=== PATIENT | female | born 1930 | race Caucasian/White ===

== ENCOUNTER 2017-11-14 15:56 | Emergency (ER) | payer OTHER ==
--- OUTSIDE RECORDS SUMMARY | 2017-11-14 15:58 | XMS REPORT | Clinical Summary ---
:1930 Author Organization [facility] Address [address] [place] [address] Phone Care Team Providers Name Role Phone Unavailable Primary Care Provider Unavailable Allergies Active Allergy Reactions Severity Noted Date Comments Codeine Nausea And Vomiting 09/23/2016 Hydrocodone-Acetaminophen 09/23/2016 Current Medications Prescription Sig. Disp. Refills Start Date End Date Status tamsulosin (FLOMAX) Take 0.4 mg by Active 0.4 mg Cp24 24 hr mouth daily. capsule carvedilol (COREG) Take 3.125 mg Active 3.125 MG tablet by mouth 2 (two) times daily with breakfast and dinner. furosemide (LASIX) Take 80 mg by Active 80 MG tablet mouth daily. levothyroxine Take 50 mcg by Active (SYNTHROID, mouth Every LEVOTHROID) 50 MCG morning on an tablet empty stomach. traMADol (ULTRAM) Take 50 mg by Active 50 mg tablet mouth 2 (two) times daily as needed for Pain. montelukast Take 10 mg by Active (SINGULAIR) 10 mg mouth nightly. tablet nilotinib (TASIGNA) Take 300 mg by Active 150 mg capsule mouth 2 (two) times daily. nortriptyline Take 75 mg by Active (PAMELOR) 75 MG mouth nightly. capsule digoxin (LANOXIN) Take 125 mcg by Active 0.125 MG tablet mouth every other day. apixaban (ELIQUIS) Take 2.5 mg by Active 2.5 mg Tab tablet mouth 2 (two) times daily. metoprolol Take 25 mg by Active (LOPRESSOR) 25 MG mouth 2 (two) tablet times daily. cycloSPORINE Place 1 drop Active (RESTASIS) 0.05 % into both eyes ophthalmic emulsion 2 (two) times daily. gabapentin Take 400 mg by Active (NEURONTIN) 400 MG mouth 4 (four) capsule times daily. gabapentin Take 800 mg by Discontinued (NEURONTIN) 300 MG mouth 4 (four) 7 capsule times daily . aspirin 325 MG EC Take 1 tablet 30 tablet 0 10/03/2016 tablet (325 mg total) 8 by mouth daily. Active Problems Problem Noted Date Ventricular tachycardia (HCC) 01/06/2017 VT (ventricular tachycardia) (HCC) 01/06/2017 Stenosis of right carotid artery 10/01/2016 Carotid stenosis, asymptomatic, right 09/25/2016 Essential hypertension 09/25/2016 Hypothyroidism 09/25/2016 Encounters Date Type Specialty Care Team Description 02/10/2017 Hospital Encounter Ana Shrestha MD 02/10/2017 Orders Only Ana Shrestha Status post MD Alberto biventricular pacemaker 02/10/2017 Outside Orders Ana Shrestha Status post MD Alberto biventricular pacemaker (Primary Dx) 01/07/2017 Orders Only General Internal Medicine 01/07/2017 Anesthesia Event Yoan Francois AA 01/07/2017 Procedure Pass 01/07/2017 Surgery Ana Shrestha AICD GENERATOR & MD Alberto LEADS - INSERTION W/ MAC ANESTHESIA (SING/DUAL/MULT) 01/06/2017 - Hospital Encounter Cardiology Fuad Gonzales Essential 01/08/2017 MD Jf hypertension after 11/13/2016 Family History Medical History Relation Name Comments Cancer Father Cancer Mother Relation Name Status Comments Father Mother Social History Tobacco Use Types Packs/Day Years Used Date Former Smoker Quit: 06/27/1992 Alcohol Use Drinks/Week oz/Week Comments No Sex Assigned at Date Recorded Not on file Last Filed Vital Signs Vital Sign Reading Time Taken Blood Pressure 102/73 01/08/2017 7:51 AM CDT Pulse 86 01/08/2017 7:51 AM CDT Temperature 36.8 C (98.2 F) 01/08/2017 7:51 AM CDT Respiratory Rate 18 01/08/2017 7:51 AM CDT Oxygen Saturation 94% 01/08/2017 7:51 AM CDT Inhaled Oxygen Concentration - - Weight 67.3 kg (148 lb 4.8 oz) 01/08/2017 7:51 AM CDT Height 167.6 cm (5' 6") 01/06/2017 4:13 PM CDT Body Mass Index 23.94 01/08/2017 7:51 AM CDT Plan of Treatment Health Maintenance Due Date Last Done Comments INFLUENZA VACCINE 04/27/2018 Implants Implanted Type Area Baggage Porter Device Expiration Model / Identifier Date Serial / Lot Lead Attain Performa 78cm [id number] - [id number] Cardiovascular N/A: MEDTRONIC :CARD 10/03/2018 [id number] / Implanted: Qty: 1 on 01/07/2017 by Ana Shrestha MD Chest RHY: DISEASE [id number] / MGT Ld Endocardial Df4 Act 55 [id number] - [id number] Defibrillators N/A: MEDTRONIC:CARD 10/10/2018 [id number] / Implanted: Qty: 1 on 01/07/2017 by Ana Shrestha MD Chest RHY: DISEASE [id number] / MGT Dev Amplia Quad Painter Ordnance-D Surescn [id number] - [id number] Defibrillators N/A: MEDTRONIC:CARD 04/24/2018 [id number] / Implanted: Qty: 1 on 01/07/2017 by Ana Shrestha MD Chest RHY:PACING SYS [id number] / Grft Hemshld Dbl Silvio 0.3x3.0in [id number] - [id number] Graft/Patch Right: GETINGE 04/26/2021 [id number] / Implanted: Qty: 1 on 10/01/2016 by Miguelangel Stack MD Neck IND:MAQUET:CV [id number] / [id number] Lead Pacemkr Capsur Novus 45x1 [id number] - [id number] Pacemaker Lead N/A: MEDTRONIC:CARD 09/23/2018 [id number] / Implanted: Qty: 1 on 01/07/2017 by Ana Shrestha MD Chest RHY: DISEASE [id number] / MGT Procedures Procedure Name Priority Date/Time Associated Diagnosis Comments AICD GENERATOR & 01/07/2017 10:19 AM Ventricular tachycardia LEADS - INSERTION W/ CDT (HCC) MAC ANESTHESIA (SING/DUAL/MULT) Case Notes 1439 after 11/13/2016 Results ARRYTHMIA IMPLANT REPORT - SCAN (02/27/2017 11:21 AM)Only the most recent of3 resultswithin the time period is included.XR chest 2 views (02/10/2017 2:57 PM) Specimen Performing Laboratory GE RIS Narrative FINAL REPORT INDICATION: status post implant COMPARISON: January 07, 2017 TECHNIQUE: Chest radiograph, two views, PA and lateral. FINDINGS: There is a left subclavian triple lead ICD with one lead terminating in the right atrium, another lead terminating in the right ventricle, and a third lead terminating in the coronary sinus. Mild enlargement of the cardiac silhouette and a moderate elevation left hemidiaphragm are again noted. There is no pneumothorax. No pulmonary edema or pleural effusion is demonstrated. Osseous structures are unremarkable. IMPRESSION: As above. Signed: Da Curiel MD Report Verified Date/Time:02/10/2017 15:41:30 Reading Location: [facility] Reading Room Procedure Note Interface, External Ris In - 02/10/2017 3:43 PM CDT FINAL REPORT INDICATION: status post implant COMPARISON: January 07, 2017 TECHNIQUE: Chest radiograph, two views, PA and lateral. FINDINGS: There is a left subclavian triple lead ICD with one lead terminating in the right atrium, another lead terminating in the right ventricle, and a third lead terminating in the coronary sinus. Mild enlargement of the cardiac silhouette and a moderate elevation left hemidiaphragm are again noted. There is no pneumothorax. No pulmonary edema or pleural effusion is demonstrated. Osseous structures are unremarkable. IMPRESSION: As above. Signed: Da Curiel MD Report Verified Date/Time: 02/10/2017 15:41:30 Reading Location: [facility] Reading Room IAC CATH REPORT - SCAN (01/09/2017 2:11 PM)RHYTHM STRIP - SCAN (01/09/2017 2:11 PM)CBC (Hemogram only) (01/08/2017 4:41 AM)Only the most recent of2 resultswithin the time period is included. Component Value Ref Range WBC 11.1 (H) 4.0 - 10.0 K/L RBC 3.62 (L) 4.00 - 5.00 M/L Hemoglobin 12.2 12.0 - 15.0 GM/DL Hematocrit 36.3 36.0 - 45.0 % MCV 101.0 (H) 82.0 - 99.0 fL MCH 33.9 (H) 27.0 - 33.0 pg MCHC 33.7 32.0 - 36.0 GM/DL RDW 15.2 (H) 10.3 - 14.2 % Platelets 201 150 - 430 K/CU MM MPV 7.6 6.5 - 10.5 fL nRBC 0 0 - 0 /100 WBC Specimen Performing Laboratory Blood - Arm, [address] [address] Narrative 0.00 Magnesium (01/08/2017 4:41 AM)Only the most recent of3 resultswithin the time period is included. Component Value Ref Range Magnesium 2.0Comment: Specimen slightly hemolyzed 1.6 - 2.6 mg/dL Specimen Performing Laboratory Blood - Arm, [address] [address] Basic Metabolic Panel (01/08/2017 4:41 AM)Only the most recent of3 resultswithin the time period is included. Component Value Ref Range Sodium 138 136 - 145 meq/L Potassium 4.6Comment: Specimen slightly hemolyzed 3.5 - 5.1 meq/L Chloride 108 (H) 98 - 107 meq/L CO2 23 22 - 29 meq/L BUN 14 7 - 21 mg/dL Creatinine 0.87Comment: Specimen slightly hemolyzed 0.57 - 1.25 mg/dL Glucose 109 (H) 70 - 105 mg/dL Calcium 8.9 8.4 - 10.2 mg/dL EGFR 62Comment: ESTIMATED GFR IS NOT ACCURATE mL/min/1.73 sq m CREATININE CLEARANCE IN PREDICTING GLOMERULAR FILTRATION RATE. ESTIMATED GFR IS NOT APPLICABLE FOR DIALYSIS PATIENTS. Specimen Performing Laboratory Blood - Arm, [address] [address] ECG 12 lead (01/07/2017 9:17 PM)Only the most recent of2 resultswithin the time period is included. Specimen Performing Laboratory GE MUSE Narrative Ventricular Rate 68 BPM Atrial Rate 68 BPM P-R Interval 150 ms QRS Duration 106 ms Q-T Interval 372 ms QTC Calculation(Bazett) 395 ms P [place] 47 degrees R [place] -54 degrees T [place] -24 degrees Demand pacemaker;interpretation is based on intrinsic rhythm Sinus rhythm with intermittent electronic atrial pacing followed by a wide QRS complex (electronic ventricular pacing?) Incomplete right bundle branch block Left anterior fascicular block Possible Lateral infarct , age undetermined ST depression in V1-V4: secondaryto IRBBB? acute inferolateral STEMI equivalent? Abnormal ECG When compared with ECG of 07-JAN-2017 16:37, ST depression replaced mild ST elevation in lead V3-V4 Confirmed by MD EDWARDS YOCHAI ([id number]) on 01/08/2017 7:07:04 AM Procedure Note Interface, External Ris In - 01/08/2017 7:07 AM CDT Ventricular Rate 68 BPM Atrial Rate 68 BPM P-R Interval 150 ms QRS Duration 106 ms Q-T Interval 372 ms QTC Calculation(Bazett) 395 ms P [place] 47 degrees R [place] -54 degrees T [place] -24 degrees Demand pacemaker; interpretation is based on intrinsic rhythm Sinus rhythm with intermittent electronic atrial pacing followed by a wide QRS complex (electronic ventricular pacing?) Incomplete right bundle branch block Left anterior fascicular block Possible Lateral infarct , age undetermined ST depression in V1-V4: secondary to IRBBB? acute inferolateral STEMI equivalent? Abnormal ECG When compared with ECG of 07-JAN-2017 16:37, ST depression replaced mild ST elevation in lead V3-V4 Confirmed by MD EDWARDS YOCHAI ([id number]) on 01/08/2017 7:07:04 AM XR chest 1 view portable / bedside (01/07/2017 1:38 PM) Specimen Performing Laboratory GE RIS Narrative FINAL REPORT CLINICAL HISTORY: s/p BiV ICD TECHNIQUE: 1 view of the chest. COMPARISON: None IMPRESSION: There is left lower lung consolidation and a small left pleural effusion. The right lung is relatively well-aerated. The cardiomediastinal silhouette is magnified by technique with a pacemaker. Signed: Kobe Augustine MD Report Verified Date/Time:01/07/2017 13:51:33 Reading Location: [facility] B1 [id number] Consult Reading Room Procedure Note Interface, External Ris In - 01/07/2017 2:14 PM CDT FINAL REPORT CLINICAL HISTORY: s/p BiV ICD TECHNIQUE: 1 view of the chest. COMPARISON: None IMPRESSION: There is left lower lung consolidation and a small left pleural effusion. The right lung is relatively well-aerated. The cardiomediastinal silhouette is magnified by technique with a pacemaker. Signed: Kobe Augustine MD Report Verified Date/Time: 01/07/2017 13:51:33 Reading Location: [address] Consult Reading Room 2D Echo W/Doppler(CW/PW/Color) (01/07/2017 9:05 AM) Component Value Ref Range Ejection Fraction LV EF BP 32.7 % Specimen Performing Laboratory [facility] Echocardiography Laboratory [address] [place] [address] Voice:[phone] Transthoracic Echocardiogram Pat.Name:REBECCA LAURENT [facility].ID:[id number] .Date: 01/07/2017 Refer.MD:ANA SHRESTHA Exam Time: 9:05:00 AMStudy Type:Echo Complete Height:66inWeight:145lb BSA: 1.75 m2 DOBAge:1930,87Y Sex: FEMALEBP:1454/65 HR:73 bpmSonogrphr: KALEB Vaz Pat. Stat.:Inpatient Room:143 Reason for Study:Sustained or Nonsustained Atrial Fib, SVT or VT History / Clinical:Atrial fibrillation/flutter, Cancer, Hypertension, Anemia, Congestive Heart Failure Procedures:2D ECHO W/ DOPPLER (CW/PW/COLOR), Portable, Definity contrast done SUMMARY: Technically difficult study. Poor images from PLAX views. ( Loop recorder in place and patient tender in this region) 1. Left ventricular chamber size (by vol index) is severely enlarged (female - LVED vol > 80 ml/m2). Mild to moderate concentric LV hypertrophy. All of the LV segments are moderately hypokinetic. Global LV systolic function is whteiysh-xc-cnlmdjxi reduced. LVEF by quantitative assessment is moderately reduced (30-34%).. Bi-Plane Rutledge' EF 33%. Grade 2 diastolic dysfunction (moderately increased LA pressure). 2. RV chamber size is normal. Global RV systolic function is normal. 3. LA size is mildly enlarged (35-41 ml/m2). RA cavity size is normal. 4. Xnff-bs-ilemndte AoV cusp thickening. Mild to moderate aortic stenosis. Mean gradient of 20 mm Hg, ZACKARY of 1.1 cm, DVI of 0.3. LVOT diameter of 2.2 cm used ( from prior study in 09/2016). Mild aortic regurgitation. 5. A trace of tricuspid regurgitation. Peak systolic PA pressure may be underestimated; partial TR signal. Estimated Peak systolic pressure is at least 30-35 mm Hg. The estimated RA pressure by IVC dynamics 0-5 mm Hg. Compared to the prior study dated 10/02/2016, LVOT, AV Doppler was obtained on this study. Using LVOT diameter from prior study, aortic stenosis is estimated to be mild to moderate in severity. FINDINGS: LV: All of the LV segments are moderately hypokinetic. Global LV systolicfunction is woxaanir-tt-rkcgultq reduced. Left ventricularchamber size (by vol index) is severely enlarged(female - LVED vol > 80 ml/m2). Mild to moderate concentricLV hypertrophy. LVEF by quantitative assessment ismoderately reduced (30-34%).. Bi-Plane Rutledge' EF 33 %. Grade2 diastolic dysfunction (moderately increased LA pressure).LV endocardium is adequately visualized with IV contrast. LA: LA size is mildly enlarged (35-41 ml/m2). LA is adequately visualized. RV: RV is well visualized. RV chamber size is normal. Global RV systolicfunction is normal. RA: The RA is well visualized. RA cavity size is normal. AV: Ygbk-ue-hbnocbri AoV cusp thickening. Mild to moderate aorticstenosis. Mean gradient of 20 mm Hg, ZACKARY of 1.1 cm^2,DVI of 0.3. LVOT diameter of 2.2 cm used ( from prior studyin 09/2016). Mild aortic regurgitation. MV: Mild to moderate mitral regurgitation. Mild mitral annular calcification.MV leaflet mobility is normal. TV: A trace of tricuspid regurgitation. Mild TV leaflet thickening.Estimated Peak systolic pressure is at least 30-35mmHg. Peak systolic PA pressure may be underestimated;partial TR signal. PV: PV is not well visualized. Pericard: No pericardial effusion is present. Systemic Veins: The inferior vena cava is adequately visualized. The inferiorvena cava size is normal. The estimated RA pressureby IVC dynamics 0-5 mmHg. Quality:Technically difficult study. Poor images from PLAX views. ( Looprecorder in place and patient tender in this region ) MEASUREMENTS: 2D LA Sng Plane LA Vol67.7 mlIndex 38.7 ml/m2 LA Area 21 cm2(8.8-23.4) Parasternal Long [place] IVSd1.35 cmLVPWd 1.46 cm LVIDd 4.86 cm (4.3-5.1) LV Wmn 1.4 cm LV EF Biplane LVEDV BP 184 mlIndex 105 ml/m2 HR57 bpm LVESV BP 124 mlLV CO BP 3.43 l/min LV SV BP60.2 mlLV CI BP 1.96 l/min/m2 DOPPLER Aortic Valve AV DI0.305 AV Area-Cont. Eq. LVOT Area3.8 cm2 AV SV 83.1 ml Area (VTI)1.16 cm2(3-5)* AV VTI71.6 cm LVOT VTI21.9 cm AV Forward Flow AV pkVel 297 cm/s (100-170)* AV ET351 msec AV mnVel 204 cm/Cyndy AC/ET 0.343 AV pkPG 35.2 mmHgAVpkAcRt 4543 cm/s2 AV mnPG 19.8 mmHg AV AC120 msec (83-118)* AV VTI71.6 cm Left Ventricle MV pkE 119 cm/s (60-130) AnnSeptEm 4.33 cm/s AnnLatEm5.49 cm/sAnnSeptE/Em 27.4 AnnLatE/Em21.6 Avg E/Em24.2 MV E/A Ratio MV pkE 119 cm/s (60-130) MV E/A 0.872 MV pkA 136 cm/s Mitral Valve MV E/A 0.872 MV E' Mn4.91 cm/s TV PA Sys Press TI silvio 261 cm/Riccardo Press 5 mmHg RV-RA PG27.3 mmHgSysP TV 32.3 mmHg Right Ventricle RweJhzRa94.3 cm/s Atria LA P31.9 mmHg Signed 01/07/2017 05:49 PM Naomy Wilkerson M.D. Procedure Note Interface, External Ris In - 01/07/2017 5:50 PM CDT Echocardiography Laboratory [address] [place] [address] Voice: [phone] Transthoracic Echocardiogram Pat.Name: REBECCA LAURENT Pat.ID: [id number] .Date: 01/07/2017 Refer.MD: ANA SHRESTHA Exam Time: 9:05:00 AM Study Type:Echo Complete Height: 66in Weight: 145lb BSA: 1.75 m2 Age: 6 1930,87Y Sex: FEMALE BP: 1454/65 HR: 73 bpm Sonogrphr: KALEB Vaz Pat. Stat.:Inpatient Room: [place] [facility] Reason for Study:Sustained or Nonsustained Atrial Fib, SVT or VT History / Clinical:Atrial fibrillation/flutter, Cancer, Hypertension, Anemia, Congestive Heart Failure Procedures:2D ECHO W/ DOPPLER (CW/PW/COLOR), Portable, Definity contrast done SUMMARY: Technically difficult study. Poor images from PLAX views. ( Loop recorder in place and patient tender in this region) 1. Left ventricular chamber size (by vol index) is severely enlarged (female - LVED vol > 80 ml/m2). Mild to moderate concentric LV hypertrophy. All of the LV segments are moderately hypokinetic. Global LV systolic function is bombmeaa-zy-ydbhivuh reduced. LVEF by quantitative assessment is moderately reduced (30-34%).. Bi-Plane Rutledge' EF 33%. Grade 2 diastolic dysfunction (moderately increased LA pressure). 2. RV chamber size is normal. Global RV systolic function is normal. 3. LA size is mildly enlarged (35-41 ml/m2). RA cavity size is normal. 4. Rjsv-tm-chdjiqdq AoV cusp thickening. Mild to moderate aortic stenosis. Mean gradient of 20 mm Hg, ZACKARY of 1.1 cm, DVI of 0.3. LVOT diameter of 2.2 cm used ( from prior study in 09/2016). Mild aortic regurgitation. 5. A trace of tricuspid regurgitation. Peak systolic PA pressure may be underestimated; partial TR signal. Estimated Peak systolic pressure is at least 30-35 mm Hg. The estimated RA pressure by IVC dynamics 0-5 mm Hg. Compared to the prior study dated 10/02/2016, LVOT, AV Doppler was obtained on this study. Using LVOT diameter from prior study, aortic stenosis is estimated to be mild to moderate in severity. FINDINGS: LV: All of the LV segments are moderately hypokinetic. Global LV systolic function is wijxmwfu-hn-ywlmsbnb reduced. Left ventricular chamber size (by vol index) is severely enlarged (female - LVED vol > 80 ml/m2). Mild to moderate concentric LV hypertrophy. LVEF by quantitative assessment is moderately reduced (30-34%).. Bi-Plane Rutledge' EF 33%. Grade 2 diastolic dysfunction (moderately increased LA pressure). LV endocardium is adequately visualized with IV contrast. LA: LA size is mildly enlarged (35-41 ml/m2). LA is adequately visualized. RV: RV is well visualized. RV chamber size is normal. Global RV systolic function is normal. RA: The RA is well visualized. RA cavity size is normal. AV: Oqvc-in-tzexrcnn AoV cusp thickening. Mild to moderate aortic stenosis. Mean gradient of 20 mm Hg, ZACKARY of 1.1 cm^2, DVI of 0.3. LVOT diameter of 2.2 cm used ( from prior study in 09/2016). Mild aortic regurgitation. MV: Mild to moderate mitral regurgitation. Mild mitral annular calcification. MV leaflet mobility is normal. TV: A trace of tricuspid regurgitation. Mild TV leaflet thickening. Estimated Peak systolic pressure is at least 30-35 mmHg. Peak systolic PA pressure may be underestimated; partial TR signal. PV: PV is not well visualized. Pericard: No pericardial effusion is present. Systemic Veins: The inferior vena cava is adequately visualized. The inferior vena cava size is normal. The estimated RA pressure by IVC dynamics 0-5 mmHg. Quality: Technically difficult study. Poor images from PLAX views. ( Loop recorder in place and patient tender in this region) MEASUREMENTS: 2D LA Sng Plane LA Vol 67.7 ml Index 38.7 ml/m2 LA Area 21 cm2 (8.8-23.4) Parasternal Long [place] IVSd 1.35 cm LVPWd 1.46 cm LVIDd 4.86 cm (4.3-5.1) LV Wmn 1.4 cm LV EF Biplane LVEDV BP 184 ml Index 105 ml/m2 HR 57 bpm LVESV BP 124 ml LV CO BP 3.43 l/min LV SV BP 60.2 ml LV CI BP 1.96 l/min/m2 DOPPLER Aortic Valve AV DI 0.305 AV Area-Cont. Eq. LVOT Area 3.8 cm2 AV SV 83.1 ml Area (VTI) 1.16 cm2 (3-5)* AV VTI 71.6 cm LVOT VTI 21.9 cm AV Forward Flow AV pkVel 297 cm/s (100-170)* AV ET 351 msec AV mnVel 204 cm/s AV AC/ET 0.343 AV pkPG 35.2 mmHg AVpkAcRt 4543 cm/s2 AV mnPG 19.8 mmHg AV AC 120 msec (83-118)* AV VTI 71.6 cm Left Ventricle MV pkE 119 cm/s (60-130) AnnSeptEm 4.33 cm/s AnnLatEm 5.49 cm/s AnnSeptE/Em 27.4 AnnLatE/Em 21.6 Avg E/Em 24.2 MV E/A Ratio MV pkE 119 cm/s (60-130) MV E/A 0.872 MV pkA 136 cm/s Mitral Valve MV E/A 0.872 MV E' Mn 4.91 cm/s TV PA Sys Press TI silvio 261 cm/s RA Press 5 mmHg RV-RA PG 27.3 mmHg SysP TV 32.3 mmHg Right Ventricle AnnAntSm 11.3 cm/s Atria LA P 31.9 mmHg Signed 01/07/2017 05:49 PM Naomy Wilkerson M.D. CBC with platelet count + automated diff (01/07/2017 1:43 AM)Only the most recent of2 resultswithin the time period is included. Component Value Ref Range WBC 5.2 4.0 - 10.0 K/L RBC 3.33 (L) 4.00 - 5.00 M/L Hemoglobin 11.4 (L) 12.0 - 15.0 GM/DL Hematocrit 33.5 (L) 36.0 - 45.0 % MCV 101.0 (H) 82.0 - 99.0 fL MCH 34.4 (H) 27.0 - 33.0 pg MCHC 34.1 32.0 - 36.0 GM/DL RDW 13.5 10.3 - 14.2 % Platelets 184 150 - 430 K/CU MM MPV 7.0 6.5 - 10.5 fL nRBC 0 0 - 0 /100 WBC % Neutros 49 % % Lymphs 34 % % Monos 10 % % Eos 7 % % Baso 0 % # Neutros 2.52 1.80 - 8.00 K/L # Lymphs 1.75 1.48 - 4.50 K/L # Monos 0.54 0.00 - 1.30 K/L # Eos 0.34 0.00 - 0.50 K/L # Baso 0.02 0.00 - 0.20 K/L Specimen Performing Laboratory Blood - Arm, [address] [address] Narrative 0.00 aPTT (01/07/2017 1:43 AM)Only the most recent of3 resultswithin the time period is included. Component Value Ref Range PTT 67.1 (H) 22.5 - 36.0 seconds Specimen Performing Laboratory Blood - Arm, [address] [address] CBC with platelet count + automated diff (01/07/2017 1:43 AM)Only the most recent of2 resultswithin the time period is included. Specimen Performing Laboratory Blood Narrative The following orders were created for panel order CBC with platelet count + automated diff. Procedure Abnormality Status --------- ------ CBC with platelet count ...[[id number]]AbnormalFinal result Please view results for these tests on the individual orders. TSH/Free T4 If Indicated (01/06/2017 5:02 PM) Component Value Ref Range TSH 1.47 0.35 - 4.94 uIU/mL Specimen Performing Laboratory Blood [address] [address] Prothrombin time/INR (01/06/2017 5:02 PM) Component Value Ref Range Protime 14.3 11.7 - 14.7 seconds INR 1.1 <=5.9 Specimen Performing Laboratory Blood [address] [address] Narrative RECOMMENDED COUMADIN/WARFARIN INR THERAPY RANGES STANDARD DOSE: 2.0 - 3.0 Includes: PROPHYLAXIS for venous thrombosis, systemic embolization; TREATMENT for venous thrombosis and/or pulmonary embolus. HIGH RISK: Target INR is 2.5-3.5 for patients with mechanical heart valves. Prior to initiating heparin Platelet count (01/06/2017 5:02 PM) Component Value Ref Range Platelets 219 150 - 430 K/CU MM Specimen Performing Laboratory Blood [address] [address] Digoxin level (01/06/2017 5:02 PM) Component Value Ref Range Digoxin Lvl 0.4 (L) 0.8 - 2.0 ng/mL Specimen Performing Laboratory Blood [address] [address] Hepatic function panel (01/06/2017 5:02 PM) Component Value Ref Range Protein, Total 7.7 6.0 - 8.3 gm/dL Albumin 3.9 3.5 - 5.0 g/dL Total Bilirubin 1.1 0.2 - 1.2 mg/dL Bilirubin, Direct 0.5 0.1 - 0.5 mg/dL Alkaline Phosphatase 120 40 - 150 U/L AST 19 5 - 34 U/L ALT 19 6 - 55 U/L Specimen Performing Laboratory Blood [address] [address] Narrative Fasting lipid panel Lipid panel (01/06/2017 5:02 PM) Component Value Ref Range Triglycerides 81 mg/dL Cholesterol 224 mg/dL HDL 96 mg/dL LDL Calculated 112 mg/dL Specimen Performing Laboratory Blood [address] [address] Narrative Triglyceride Reference Range: Low Risk <150 [id number] High Risk 200-499 Very High Risk>=500 Cholesterol Reference Range: Low Risk <200 Zahbozckzp700-809 High Risk>240 HDL Cholesterol Reference Range: Low Risk >=60 High Risk <40 LDL Cholesterol Reference Range: Optimal<100 Near Rrwjdil851-685 Ytcdncikku615-506 Avjd867-737 Very High >=190 Fasting lipid panel after 11/13/2016
--- OUTSIDE RECORDS SUMMARY | 2017-11-14 15:59 | XMS REPORT ---
:1930 [facility] [address] [place] [address] Dr. Ov[place]o [address] [place] [id number] Care Team Providers Name Role Phone MICHELLE PRADIP WOODS Unavailable Unavailable CYNDEE NOLAN Unavailable Unavailable Problems This patient has no known problems. Allergies, Adverse Reactions, Alerts This patient has no known allergies or adverse reactions. Medications This patient has no known medications. Results Test Description Test Time Test Comments Text Results Atomic Results Result Comments MAGNESIUM 2017-01-08 05:25:00 Test Item Value Reference Range Comments MAGNESIUM (BEAKER) (test yurt=409) 2.0 mg/dL 1.6-2.6 Specimen slightly hemolyzed BASIC METABOLIC [id number] 05:25:00 Test Item Value Reference Range Comments SODIUM (BEAKER) (test 138 meq/L 136-145 cqmj=397) POTASSIUM (BEAKER) (test 4.6 meq/L 3.5-5.1 Specimen slightly hnmc=747) hemolyzed CHLORIDE (BEAKER) (test 108 meq/L 98-107 lngp=940) CO2 (BEAKER) (test 23 meq/L 22-29 gcpq=740) BLOOD UREA NITROGEN 14 mg/dL 7-21 (BEAKER) (test eeis=321) CREATININE (BEAKER) (test 0.87 mg/dL 0.57-1.25 Specimen slightly vvtd=421) hemolyzed GLUCOSE RANDOM (BEAKER) 109 mg/dL 70-105 (test fhrc=448) CALCIUM (BEAKER) (test 8.9 mg/dL 8.4-10.2 dwol=558) EGFR (BEAKER) (test 62 mL/min/1.73 sq m ESTIMATED GFR IS NOT rzhf=0845) ACCURATE CREATININE CLEARANCE IN PREDICTING GLOMERULAR FILTRATION RATE. ESTIMATED GFR IS NOT APPLICABLE FOR DIALYSIS PATIENTS. CBC (HEMOGRAM ONLY)2017-01-08 05:22:00 Test Item Value Reference Range Comments WHITE BLOOD CELL COUNT (BEAKER) (test mqot=930) 11.1 K/ L 4.0-10.0 RED BLOOD CELL COUNT (BEAKER) (test ockw=365) 3.62 M/ L 4.00-5.00 HEMOGLOBIN (BEAKER) (test ugnh=568) 12.2 GM/DL 12.0-15.0 HEMATOCRIT (BEAKER) (test pdgz=443) 36.3 % 36.0-45.0 MEAN CORPUSCULAR VOLUME (BEAKER) (test kibz=087) 101.0 fL 82.0-99.0 MEAN CORPUSCULAR HEMOGLOBIN (BEAKER) (test 33.9 pg 27.0-33.0 ajdi=562) MEAN CORPUSCULAR HEMOGLOBIN CONC (BEAKER) (test 33.7 GM/DL 32.0-36.0 osiq=992) RED CELL DISTRIBUTION WIDTH (BEAKER) (test 15.2 % 10.3-14.2 lgno=868) PLATELET COUNT (BEAKER) (test zsch=654) 201 K/CU MM 150-430 MEAN PLATELET VOLUME (BEAKER) (test ovck=268) 7.6 fL 6.5-10.5 NUCLEATED RED BLOOD CELLS (BEAKER) (test 0 /100 WBC 0-0 qkyj=125) 0.00CBC (HEMOGRAM ONLY)2017-01-07 05:01:00 Test Item Value Reference Range Comments WHITE BLOOD CELL COUNT (BEAKER) (test oolo=143) 5.8 K/ L 4.0-10.0 RED BLOOD CELL COUNT (BEAKER) (test dprr=900) 3.68 M/ L 4.00-5.00 HEMOGLOBIN (BEAKER) (test fwph=270) 12.1 GM/DL 12.0-15.0 HEMATOCRIT (BEAKER) (test nvar=716) 36.9 % 36.0-45.0 MEAN CORPUSCULAR VOLUME (BEAKER) (test btmo=026) 100.0 fL 82.0-99.0 MEAN CORPUSCULAR HEMOGLOBIN (BEAKER) (test 33.0 pg 27.0-33.0 hibg=361) MEAN CORPUSCULAR HEMOGLOBIN CONC (BEAKER) (test 32.8 GM/DL 32.0-36.0 zcmc=512) RED CELL DISTRIBUTION WIDTH (BEAKER) (test 13.5 % 10.3-14.2 wbnw=786) PLATELET COUNT (BEAKER) (test vttb=364) 204 K/CU MM 150-430 MEAN PLATELET VOLUME (BEAKER) (test itdx=665) 7.3 fL 6.5-10.5 NUCLEATED RED BLOOD CELLS (BEAKER) (test 0 /100 WBC 0-0 yoiy=880) [id number] 02:15:00 Test Item Value Reference Range Comments MAGNESIUM (BEAKER) (test jjvu=368) 2.2 mg/dL 1.6-2.6 BASIC METABOLIC [id number] 02:15:00 Test Item Value Reference Range Comments SODIUM (BEAKER) (test 142 meq/L 136-145 hggi=523) POTASSIUM (BEAKER) (test 4.0 meq/L 3.5-5.1 qoaz=359) CHLORIDE (BEAKER) (test 110 meq/L 98-107 bvwx=936) CO2 (BEAKER) (test 23 meq/L 22-29 somz=854) BLOOD UREA NITROGEN 21 mg/dL 7-21 (BEAKER) (test vdiw=383) CREATININE (BEAKER) (test 1.02 mg/dL 0.57-1.25 xyga=813) GLUCOSE RANDOM (BEAKER) 102 mg/dL 70-105 (test ymcg=051) CALCIUM (BEAKER) (test 8.9 mg/dL 8.4-10.2 xpnl=492) EGFR (BEAKER) (test 51 mL/min/1.73 sq m ESTIMATED GFR IS NOT vxbx=5845) ACCURATE CREATININE CLEARANCE IN PREDICTING GLOMERULAR FILTRATION RATE. ESTIMATED GFR IS NOT APPLICABLE FOR DIALYSIS PATIENTS. [id number] 02:02:00 Test Item Value Reference Range Comments PARTIAL THROMBOPLASTIN TIME (BEAKER) (test 67.1 seconds 22.5-36.0 hopk=547) CBC W/PLT COUNT & AUTO [id number] 01:59:00 Test Item Value Reference Range Comments WHITE BLOOD CELL COUNT (BEAKER) (test qurh=979) 5.2 K/ L 4.0-10.0 RED BLOOD CELL COUNT (BEAKER) (test oshp=754) 3.33 M/ L 4.00-5.00 HEMOGLOBIN (BEAKER) (test lfta=619) 11.4 GM/DL 12.0-15.0 HEMATOCRIT (BEAKER) (test mttb=702) 33.5 % 36.0-45.0 MEAN CORPUSCULAR VOLUME (BEAKER) (test oiin=309) 101.0 fL 82.0-99.0 MEAN CORPUSCULAR HEMOGLOBIN (BEAKER) (test 34.4 pg 27.0-33.0 itnn=366) MEAN CORPUSCULAR HEMOGLOBIN CONC (BEAKER) (test 34.1 GM/DL 32.0-36.0 hlau=914) RED CELL DISTRIBUTION WIDTH (BEAKER) (test 13.5 % 10.3-14.2 czkk=991) PLATELET COUNT (BEAKER) (test npzi=178) 184 K/CU MM 150-430 MEAN PLATELET VOLUME (BEAKER) (test nogs=309) 7.0 fL 6.5-10.5 NUCLEATED RED BLOOD CELLS (BEAKER) (test 0 /100 WBC 0-0 lzip=379) NEUTROPHILS RELATIVE PERCENT (BEAKER) (test 49 % sraj=993) LYMPHOCYTES RELATIVE PERCENT (BEAKER) (test 34 % kdzu=369) MONOCYTES RELATIVE PERCENT (BEAKER) (test 10 % chcj=260) EOSINOPHILS RELATIVE PERCENT (BEAKER) (test 7 % nnnv=894) BASOPHILS RELATIVE PERCENT (BEAKER) (test 0 % ozes=893) NEUTROPHILS ABSOLUTE COUNT (BEAKER) (test 2.52 K/ L 1.80-8.00 nylp=208) LYMPHOCYTES ABSOLUTE COUNT (BEAKER) (test 1.75 K/ L 1.48-4.50 aipa=111) MONOCYTES ABSOLUTE COUNT (BEAKER) (test 0.54 K/ L 0.00-1.30 nkrx=712) EOSINOPHILS ABSOLUTE COUNT (BEAKER) (test 0.34 K/ L 0.00-0.50 uwfv=965) BASOPHILS ABSOLUTE COUNT (BEAKER) (test 0.02 K/ L 0.00-0.20 ymxh=474) 0.00DIGOXIN [id number] 18:00:00 Test Item Value Reference Range Comments DIGOXIN LEVEL (BEAKER) (test vogq=551) 0.4 ng/mL 0.8-2.0 TSH/FREE T4 IF [id number] 18:00:00 Test Item Value Reference Range Comments THYROID STIMULATING HORMONE (BEAKER) (test 1.47 uIU/mL 0.35-4.94 ebyl=156) [id number] 17:35:00 Test Item Value Reference Range Comments MAGNESIUM (BEAKER) (test tvsy=572) 2.4 mg/dL 1.6-2.6 Fasting lipid panelBASIC METABOLIC [id number] 17:35:00 Test Item Value Reference Range Comments SODIUM (BEAKER) (test 139 meq/L 136-145 wxiq=541) POTASSIUM (BEAKER) (test 3.9 meq/L 3.5-5.1 vzrn=098) CHLORIDE (BEAKER) (test 105 meq/L 98-107 elax=579) CO2 (BEAKER) (test 27 meq/L 22-29 jijt=598) BLOOD UREA NITROGEN 25 mg/dL 7-21 (BEAKER) (test vnmz=366) CREATININE (BEAKER) (test 1.24 mg/dL 0.57-1.25 fjlz=519) GLUCOSE RANDOM (BEAKER) 91 mg/dL 70-105 (test lnuf=711) CALCIUM (BEAKER) (test 9.4 mg/dL 8.4-10.2 kljl=150) EGFR (BEAKER) (test 41 mL/min/1.73 sq m ESTIMATED GFR IS NOT frqz=8040) ACCURATE CREATININE CLEARANCE IN PREDICTING GLOMERULAR FILTRATION RATE. ESTIMATED GFR IS NOT APPLICABLE FOR DIALYSIS PATIENTS. Fasting lipid panelLIPID [id number] 17:35:00 Test Item Value Reference Range Comments TRIGLYCERIDES (BEAKER) (test sjar=005) 81 mg/dL CHOLESTEROL (BEAKER) (test muls=624) 224 mg/dL HDL CHOLESTEROL (BEAKER) (test vywe=676) 96 mg/dL LDL CHOLESTEROL CALCULATED (BEAKER) (test 112 mg/dL ltfi=967) Triglyceride Reference Range: Low Risk <150 Borderline 150- 199 High Risk 200-499 Very High Risk >=500Cholesterol Reference Range: Low Risk <200 Borderline 200-239 High Risk > 240HDL Cholesterol Reference Range: Low Risk >=60 High Risk <40LDL Cholesterol Reference Range: Optimal <100 Near Optimal 100-129 Borderline 130-159 High 160-189 Very High >=190 Fasting lipid panelHEPATIC FUNCTION [id number] 17:35:00 Test Item Value Reference Range Comments TOTAL PROTEIN (BEAKER) (test hpre=720) 7.7 gm/dL 6.0-8.3 ALBUMIN (BEAKER) (test eiao=9492) 3.9 g/dL 3.5-5.0 BILIRUBIN TOTAL (BEAKER) (test poyj=967) 1.1 mg/dL 0.2-1.2 BILIRUBIN DIRECT (BEAKER) (test clse=703) 0.5 mg/dL 0.1-0.5 ALKALINE PHOSPHATASE (BEAKER) (test tcor=724) 120 U/L 40-150 AST (SGOT) (BEAKER) (test qtwr=013) 19 U/L 5-34 ALT (SGPT) (BEAKER) (test vncm=383) 19 U/L 6-55 Fasting lipid [id number] 17:24:00 Test Item Value Reference Range Comments PARTIAL THROMBOPLASTIN TIME (BEAKER) (test 37.0 seconds 22.5-36.0 utpk=735) Prior to initiating heparinPROTHROMBIN TIME/[id number] 17:23:00 Test Item Value Reference Range Comments PROTIME (BEAKER) (test ldoy=615) 14.3 seconds 11.7-14.7 INR (BEAKER) (test awrx=853) 1.1 <=5.9 RECOMMENDED COUMADIN/WARFARIN INR THERAPY RANGESSTANDARD DOSE: 2.0 - 3.0 Includes: PROPHYLAXIS forvenous thrombosis, systemic embolization; TREATMENT for venous thrombosis and/or pulmonary embolus.HIGH RISK: Target INR is 2.5-3.5 for patients with mechanical heart valves.Prior to initiating [id number] 17:23:00 Test Item Value Reference Range Comments PARTIAL THROMBOPLASTIN TIME (BEAKER) (test 36.6 seconds 22.5-36.0 nafp=423) Prior to initiating heparinCBC W/PLT COUNT & AUTO [id number] 17: 20:00 Test Item Value Reference Range Comments WHITE BLOOD CELL COUNT (BEAKER) (test odjt=653) 6.1 K/ L 4.0-10.0 RED BLOOD CELL COUNT (BEAKER) (test uymx=173) 3.72 M/ L 4.00-5.00 HEMOGLOBIN (BEAKER) (test xcnk=018) 12.4 GM/DL 12.0-15.0 HEMATOCRIT (BEAKER) (test htuw=185) 37.4 % 36.0-45.0 MEAN CORPUSCULAR VOLUME (BEAKER) (test rexs=800) 101.0 fL 82.0-99.0 MEAN CORPUSCULAR HEMOGLOBIN (BEAKER) (test 33.5 pg 27.0-33.0 npjg=557) MEAN CORPUSCULAR HEMOGLOBIN CONC (BEAKER) (test 33.2 GM/DL 32.0-36.0 smly=294) RED CELL DISTRIBUTION WIDTH (BEAKER) (test 13.5 % 10.3-14.2 hwdt=034) PLATELET COUNT (BEAKER) (test smyh=525) 219 K/CU MM 150-430 MEAN PLATELET VOLUME (BEAKER) (test uthm=619) 7.0 fL 6.5-10.5 NUCLEATED RED BLOOD CELLS (BEAKER) (test 0 /100 WBC 0-0 iegx=577) NEUTROPHILS RELATIVE PERCENT (BEAKER) (test 51 % dnqw=778) LYMPHOCYTES RELATIVE PERCENT (BEAKER) (test 33 % dlhj=940) MONOCYTES RELATIVE PERCENT (BEAKER) (test 10 % peyy=452) EOSINOPHILS RELATIVE PERCENT (BEAKER) (test 5 % ahea=111) BASOPHILS RELATIVE PERCENT (BEAKER) (test 1 % dvtt=773) NEUTROPHILS ABSOLUTE COUNT (BEAKER) (test 3.09 K/ L 1.80-8.00 isqs=243) LYMPHOCYTES ABSOLUTE COUNT (BEAKER) (test 1.99 K/ L 1.48-4.50 tuyl=404) MONOCYTES ABSOLUTE COUNT (BEAKER) (test 0.62 K/ L 0.00-1.30 meik=451) EOSINOPHILS ABSOLUTE COUNT (BEAKER) (test 0.31 K/ L 0.00-0.50 yhfv=025) BASOPHILS ABSOLUTE COUNT (BEAKER) (test 0.08 K/ L 0.00-0.20 wcdh=753) PLATELET [id number] 17:16:00 Test Item Value Reference Range Comments PLATELET COUNT (BEAKER) (test mile=001) 219 K/CU MM 150-430 BASIC METABOLIC [id number] 04:55:00 Test Item Value Reference Range Comments SODIUM (BEAKER) (test 141 meq/L 136-145 tsnu=937) POTASSIUM (BEAKER) (test 3.3 meq/L 3.5-5.1 ozrd=812) CHLORIDE (BEAKER) (test 104 meq/L 98-107 ouzi=584) CO2 (BEAKER) (test 28 meq/L 22-29 qxoi=313) BLOOD UREA NITROGEN 14 mg/dL 7-21 (BEAKER) (test tqit=301) CREATININE (BEAKER) (test 0.80 mg/dL 0.57-1.25 adtm=943) GLUCOSE RANDOM (BEAKER) 97 mg/dL 70-105 (test ickk=185) CALCIUM (BEAKER) (test 8.9 mg/dL 8.4-10.2 jrww=477) EGFR (BEAKER) (test 68 mL/min/1.73 sq m ESTIMATED GFR IS NOT nohm=0871) ACCURATE CREATININE CLEARANCE IN PREDICTING GLOMERULAR FILTRATION RATE. ESTIMATED GFR IS NOT APPLICABLE FOR DIALYSIS PATIENTS. CBC (HEMOGRAM ONLY)2016-10-03 04:47:00 Test Item Value Reference Range Comments WHITE BLOOD CELL COUNT (BEAKER) (test tsmm=776) 7.8 K/ L 4.0-10.0 RED BLOOD CELL COUNT (BEAKER) (test njve=068) 3.12 M/ L 4.00-5.00 HEMOGLOBIN (BEAKER) (test olgs=883) 11.2 GM/DL 12.0-15.0 HEMATOCRIT (BEAKER) (test xbzc=751) 32.5 % 36.0-45.0 MEAN CORPUSCULAR VOLUME (BEAKER) (test lgbo=756) 104.0 fL 82.0-99.0 MEAN CORPUSCULAR HEMOGLOBIN (BEAKER) (test 35.8 pg 27.0-33.0 vtit=650) MEAN CORPUSCULAR HEMOGLOBIN CONC (BEAKER) (test 34.4 GM/DL 32.0-36.0 ifyb=220) RED CELL DISTRIBUTION WIDTH (BEAKER) (test 12.8 % 10.3-14.2 hxet=709) PLATELET COUNT (BEAKER) (test krty=146) 190 K/CU MM 150-430 MEAN PLATELET VOLUME (BEAKER) (test otit=526) 7.4 fL 6.5-10.5 NUCLEATED RED BLOOD CELLS (BEAKER) (test 0 /100 WBC 0-0 hipt=842) 0.00PT/[id number] 04:41:00 Test Item Value Reference Range Comments PROTIME (BEAKER) (test tptn=643) 13.1 seconds 11.7-14.7 INR (BEAKER) (test ebzk=675) 1.0 <=5.9 PARTIAL THROMBOPLASTIN TIME (BEAKER) (test 28.1 seconds 22.5-36.0 zoqp=780) RECOMMENDED COUMADIN/WARFARIN INR THERAPY RANGESSTANDARD DOSE: 2.0 - 3.0 Includes: PROPHYLAXIS forvenous thrombosis, systemic embolization; TREATMENT for venous thrombosis and/or pulmonary embolus.HIGH RISK: Target INR is 2.5-3.5 for patients with mechanical heart valves.CREATINE KINASE (CK), TOTAL AND [id number] 04:53:00 Test Item Value Reference Range Comments CREATINE KINASE TOTAL (BEAKER) (test ypns=579) 36 U/L 29-200 CREATINE KINASE-MB (BEAKER) (test dsnh=879) 1.6 ng/mL 0.0-6.6 CREATINE KINASE-MB INDEX (BEAKER) (test htbp=226) 4.4 % Effective 06/14/2014: CK-MB Reference Range ChangeNew: 0.0-6.6 Previous: 0.0- 4.9CK-MB Reference Range:<6.7 Normal6.7-10.0 Borderline>10.0 AbnormalTROPONIN [id number] 04:53:00 Test Item Value Reference Range Comments TROPONIN I (BEAKER) (test fugl=135) 0.03 ng/mL 0.00-0.03 Effective 06/14/2014: Reference Range ChangeNew: 0.00-0.03 Previous 0.00- 0.15Troponin I (TnI) levels must be interpreted in the context of the presenting symptoms and the clinical findings. Elevated TnI levels indicate myocardial damage, but are not specific for ischemic heart disease. Elevated TnI levels are seen in patients with other cardiac conditions (including myocarditis and congestive heartfailure), and slight TnI elevations occur in patients with other conditions, including sepsis, renalfailure, acidosis, acute neurological disease, and persistent tachyarrhythmia.BASIC METABOLIC [id number] 04:46:00 Test Item Value Reference Range Comments SODIUM (BEAKER) (test 139 meq/L 136-145 zwbw=425) POTASSIUM (BEAKER) (test 3.7 meq/L 3.5-5.1 oisd=935) CHLORIDE (BEAKER) (test 104 meq/L 98-107 gepf=353) CO2 (BEAKER) (test 27 meq/L 22-29 oktj=730) BLOOD UREA NITROGEN 14 mg/dL 7-21 (BEAKER) (test gllx=602) CREATININE (BEAKER) (test 0.82 mg/dL 0.57-1.25 xitv=686) GLUCOSE RANDOM (BEAKER) 102 mg/dL 70-105 (test psux=641) CALCIUM (BEAKER) (test 9.1 mg/dL 8.4-10.2 tnwm=719) EGFR (BEAKER) (test 66 mL/min/1.73 sq m ESTIMATED GFR IS NOT nsqt=0558) ACCURATE CREATININE CLEARANCE IN PREDICTING GLOMERULAR FILTRATION RATE. ESTIMATED GFR IS NOT APPLICABLE FOR DIALYSIS PATIENTS. [id number] 04:41:00 Test Item Value Reference Range Comments PROTIME (BEAKER) (test qhhp=794) 13.5 seconds 11.7-14.7 INR (BEAKER) (test rgif=053) 1.0 <=5.9 PARTIAL THROMBOPLASTIN TIME (BEAKER) (test 33.1 seconds 22.5-36.0 hjzj=067) RECOMMENDED COUMADIN/WARFARIN INR THERAPY RANGESSTANDARD DOSE: 2.0 - 3.0 Includes: PROPHYLAXIS forvenous thrombosis, systemic embolization; TREATMENT for venous thrombosis and/or pulmonary embolus.HIGH RISK: Target INR is 2.5-3.5 for patients with mechanical heart valves.CBC (HEMOGRAM ONLY)2016-10-02 04:33:00 Test Item Value Reference Range Comments WHITE BLOOD CELL COUNT (BEAKER) (test mnrk=981) 9.4 K/ L 4.0-10.0 RED BLOOD CELL COUNT (BEAKER) (test newd=728) 3.07 M/ L 4.00-5.00 HEMOGLOBIN (BEAKER) (test bhmr=876) 11.0 GM/DL 12.0-15.0 HEMATOCRIT (BEAKER) (test sdtv=756) 31.9 % 36.0-45.0 MEAN CORPUSCULAR VOLUME (BEAKER) (test yicd=430) 104.0 fL 82.0-99.0 MEAN CORPUSCULAR HEMOGLOBIN (BEAKER) (test 36.0 pg 27.0-33.0 bkom=445) MEAN CORPUSCULAR HEMOGLOBIN CONC (BEAKER) (test 34.6 GM/DL 32.0-36.0 nxku=123) RED CELL DISTRIBUTION WIDTH (BEAKER) (test 12.7 % 10.3-14.2 xprz=262) PLATELET COUNT (BEAKER) (test dsuw=581) 205 K/CU MM 150-430 MEAN PLATELET VOLUME (BEAKER) (test qufo=370) 7.3 fL 6.5-10.5 NUCLEATED RED BLOOD CELLS (BEAKER) (test 0 /100 WBC 0-0 xomj=751) 0.00TSH/FREE T4 IF [id number] 19:30:00 Test Item Value Reference Range Comments THYROID STIMULATING HORMONE (BEAKER) (test 0.43 uIU/mL 0.35-4.94 whoi=665) CREATINE KINASE (CK), TOTAL AND [id number] 19:14:00 Test Item Value Reference Range Comments CREATINE KINASE TOTAL (BEAKER) (test pklt=255) 53 U/L 29-200 CREATINE KINASE-MB (BEAKER) (test odat=578) 2.6 ng/mL 0.0-6.6 CREATINE KINASE-MB INDEX (BEAKER) (test nkcn=491) 4.9 % Effective 06/14/2014: CK-MB Reference Range ChangeNew: 0.0-6.6 Previous: 0.0- 4.9CK-MB Reference Range:<6.7 Normal6.7-10.0 Borderline>10.0 AbnormalTROPONIN [id number] 19:14:00 Test Item Value Reference Range Comments TROPONIN I (BEAKER) (test ufgu=111) 0.01 ng/mL 0.00-0.03 Effective 06/14/2014: Reference Range ChangeNew: 0.00-0.03 Previous 0.00- 0.15Troponin I (TnI) levels must be interpreted in the context of the presenting symptoms and the clinical findings. Elevated TnI levels indicate myocardial damage, but are not specific for ischemic heart disease. Elevated TnI levels are seen in patients with other cardiac conditions (including myocarditis and congestive heartfailure), and slight TnI elevations occur in patients with other conditions, including sepsis, renalfailure, acidosis, acute neurological disease, and persistent tachyarrhythmia.[id number] 15:20: 00 Test Item Value Reference Range Comments MAGNESIUM (BEAKER) (test lyyu=664) 1.9 mg/dL 1.6-2.6 BASIC METABOLIC [id number] 15:20:00 Test Item Value Reference Range Comments SODIUM (BEAKER) (test 141 meq/L 136-145 gxox=730) POTASSIUM (BEAKER) (test 3.9 meq/L 3.5-5.1 fvde=789) CHLORIDE (BEAKER) (test 108 meq/L 98-107 okcb=917) CO2 (BEAKER) (test 25 meq/L 22-29 vlgp=240) BLOOD UREA NITROGEN 14 mg/dL 7-21 (BEAKER) (test qukj=567) CREATININE (BEAKER) (test 0.84 mg/dL 0.57-1.25 rusr=761) GLUCOSE RANDOM (BEAKER) 130 mg/dL 70-105 (test erqq=124) CALCIUM (BEAKER) (test 8.8 mg/dL 8.4-10.2 aczx=158) EGFR (BEAKER) (test 64 mL/min/1.73 sq m ESTIMATED GFR IS NOT igks=2386) ACCURATE CREATININE CLEARANCE IN PREDICTING GLOMERULAR FILTRATION RATE. ESTIMATED GFR IS NOT APPLICABLE FOR DIALYSIS PATIENTS. CBC (HEMOGRAM ONLY)2016-10-01 14:52:00 Test Item Value Reference Range Comments WHITE BLOOD CELL COUNT (BEAKER) (test eucb=004) 10.1 K/ L 4.0-10.0 RED BLOOD CELL COUNT (BEAKER) (test cpsr=557) 3.40 M/ L 4.00-5.00 HEMOGLOBIN (BEAKER) (test bvzr=802) 11.9 GM/DL 12.0-15.0 HEMATOCRIT (BEAKER) (test eekh=623) 34.6 % 36.0-45.0 MEAN CORPUSCULAR VOLUME (BEAKER) (test lwtz=500) 102.0 fL 82.0-99.0 MEAN CORPUSCULAR HEMOGLOBIN (BEAKER) (test 35.1 pg 27.0-33.0 qiks=901) MEAN CORPUSCULAR HEMOGLOBIN CONC (BEAKER) (test 34.5 GM/DL 32.0-36.0 azsr=383) RED CELL DISTRIBUTION WIDTH (BEAKER) (test 13.5 % 10.3-14.2 rwga=841) PLATELET COUNT (BEAKER) (test zvkg=512) 204 K/CU MM 150-430 MEAN PLATELET VOLUME (BEAKER) (test pybp=994) 7.4 fL 6.5-10.5 NUCLEATED RED BLOOD CELLS (BEAKER) (test 0 /100 WBC 0-0 cmnz=693) 0.00BASIC METABOLIC [id number] 11:00:00 Test Item Value Reference Range Comments SODIUM (BEAKER) (test 142 meq/L 136-145 ebuu=144) POTASSIUM (BEAKER) (test 4.5 meq/L 3.5-5.1 wylq=817) CHLORIDE (BEAKER) (test 103 meq/L 98-107 hble=907) CO2 (BEAKER) (test 28 meq/L 22-29 evse=248) BLOOD UREA NITROGEN 28 mg/dL 7-21 (BEAKER) (test rovl=744) CREATININE (BEAKER) (test 1.04 mg/dL 0.57-1.25 nuvr=748) GLUCOSE RANDOM (BEAKER) 98 mg/dL 70-105 (test pabz=218) CALCIUM (BEAKER) (test 9.8 mg/dL 8.4-10.2 fycw=152) EGFR (BEAKER) (test 50 mL/min/1.73 sq m ESTIMATED GFR IS NOT dmfa=3972) ACCURATE CREATININE CLEARANCE IN PREDICTING GLOMERULAR FILTRATION RATE. ESTIMATED GFR IS NOT APPLICABLE FOR DIALYSIS PATIENTS. CBC W/PLT COUNT & AUTO [id number] 10:59:00 Test Item Value Reference Range Comments WHITE BLOOD CELL COUNT (BEAKER) (test pppe=443) 7.0 K/ L 4.0-10.0 RED BLOOD CELL COUNT (BEAKER) (test xwty=455) 3.77 M/ L 4.00-5.00 HEMOGLOBIN (BEAKER) (test gegj=151) 13.2 GM/DL 12.0-15.0 HEMATOCRIT (BEAKER) (test zxsp=871) 38.5 % 36.0-45.0 MEAN CORPUSCULAR VOLUME (BEAKER) (test mrtn=092) 102.0 fL 82.0-99.0 MEAN CORPUSCULAR HEMOGLOBIN (BEAKER) (test 34.9 pg 27.0-33.0 fnbk=515) MEAN CORPUSCULAR HEMOGLOBIN CONC (BEAKER) (test 34.2 GM/DL 32.0-36.0 vaxs=067) RED CELL DISTRIBUTION WIDTH (BEAKER) (test 13.6 % 10.3-14.2 jird=701) PLATELET COUNT (BEAKER) (test pnmk=067) 233 K/CU MM 150-430 MEAN PLATELET VOLUME (BEAKER) (test hhrv=959) 7.3 fL 6.5-10.5 NUCLEATED RED BLOOD CELLS (BEAKER) (test 0 /100 WBC 0-0 vebk=348) NEUTROPHILS RELATIVE PERCENT (BEAKER) (test 60 % pjau=501) LYMPHOCYTES RELATIVE PERCENT (BEAKER) (test 27 % iycd=394) MONOCYTES RELATIVE PERCENT (BEAKER) (test 9 % ifur=253) EOSINOPHILS RELATIVE PERCENT (BEAKER) (test 3 % kvrz=604) BASOPHILS RELATIVE PERCENT (BEAKER) (test 1 % isax=772) NEUTROPHILS ABSOLUTE COUNT (BEAKER) (test 4.20 K/ L 1.80-8.00 dilp=168) LYMPHOCYTES ABSOLUTE COUNT (BEAKER) (test 1.92 K/ L 1.48-4.50 qbdw=621) MONOCYTES ABSOLUTE COUNT (BEAKER) (test 0.60 K/ L 0.00-1.30 uefc=497) EOSINOPHILS ABSOLUTE COUNT (BEAKER) (test 0.23 K/ L 0.00-0.50 hzlg=295) BASOPHILS ABSOLUTE COUNT (BEAKER) (test 0.07 K/ L 0.00-0.20 ykuv=540) 0.00PT/[id number] 10:58:00 Test Item Value Reference Range Comments PROTIME (BEAKER) (test fwei=023) 12.7 seconds 11.7-14.7 INR (BEAKER) (test ksio=515) 1.0 <=5.9 PARTIAL THROMBOPLASTIN TIME (BEAKER) (test 29.7 seconds 22.5-36.0 jgbf=652) RECOMMENDED COUMADIN/WARFARIN INR THERAPY RANGESSTANDARD DOSE: 2.0 - 3.0 Includes: PROPHYLAXIS forvenous thrombosis, systemic embolization; TREATMENT for venous thrombosis and/or pulmonary embolus.HIGH RISK: Target INR is 2.5-3.5 for patients with mechanical heart valves.
--- NOTE | 2017-11-14 18:23 | ER ---
Nurse's Notes [facility] Name: Nikky Ocampo Age: 87 yrs Sex: Female : 1930 Arrival Date: 11/14/2017 Time: 16:06 Bed 20 Private MD: Diagnosis: UTI, rigors Presentation: 11/14 16:06 Presenting complaint: EMS states: called out for "jerking" recently dx with UTI, pt em reports having a bad reaction to levofloxacin , denies SOB or chest pain, NAD noted. Transition of care: patient was not received from another setting of care. Onset of symptoms was November 14, 2017. Initial Sepsis Screen: Does the patient meet any 2 criteria? No. Patient's initial sepsis screen is negative. Does the patient have a suspected source of infection? No. Patient's initial sepsis screen is negative. Care prior to arrival: None. 16:06 Method Of Arrival: EMS: [facility] em 16:07 Acuity: TASIA 3 iw Historical: - Allergies: 16:06 Codeine; em - PMHx: 16:06 Chronic leukemia; Hypertension; Pacemaker; em - Immunization history:: Adult Immunizations up to date. - Social history:: Smoking status: Patient/guardian denies using tobacco. Screenin:59 Abuse screen: Denies threats or abuse. Nutritional screening: No deficits noted. em Tuberculosis screening: No symptoms or risk factors identified. Fall Risk None identified. Assessment: 16:15 General: Appears in no apparent distress. comfortable, Behavior is calm, cooperative. em Pain: Denies pain. Neuro: Level of Consciousness is awake, alert, obeys commands, Oriented to person, place, time, situation, Vp Software Support are equal bilaterally Moves all extremities. Gait is steady, Speech is normal. Cardiovascular: Capillary refill < 3 seconds Patient's skin is warm and dry. Respiratory: Airway is patent Respiratory effort is even, unlabored, Respiratory pattern is regular, symmetrical. GI: Abdomen is round. : Reports currently being treated for UTI. EENT: No signs and/or symptoms were reported regarding the EENT system. Derm: Skin. Derm: Skin is intact, Skin is pink, warm \\T\\ dry. Musculoskeletal: Range of motion: intact in all extremities. 16:26 Reassessment: Patient appears in no apparent distress at this time. I agree with above iw assessment by Steve Tran LVN. 17:15 Reassessment: Patient appears in no apparent distress at this time. Patient and/or em family updated on plan of care and expected duration. Pain level reassessed. Patient is alert, oriented x 3, equal unlabored respirations, skin warm/dry/pink. 18:02 Reassessment: Patient appears in no apparent distress at this time. Patient is alert, em oriented x 3, equal unlabored respirations, skin warm/dry/pink. pt ambulated around ER, tolerated well, denies SOB or dizziness Patient states feeling better. Patient states symptoms have improved. Vital Signs: 16:09 BP 159 / 66; Pulse 75; Resp 18; Temp 97.8; Pulse Ox 95% on R/A; Weight 59.87 kg; Height em 5 ft. 5 in. (165.10 cm); Pain 6/10; 17:00 BP 141 / 77; Pulse 93; Resp 18; Pulse Ox 95% on R/A; Pain 0/10; em 18:52 BP 157 / 74; Pulse 88; Resp 18; Temp 97.8; Pulse Ox 96% on R/A; em 16:09 Body Mass Index 21.97 (59.87 kg, 165.10 cm) em ED Course: 16:06 Patient arrived in ED. em 16:08 Arm band placed on. em 16:08 Patient has correct armband on for positive identification. Bed in low position. Call em light in reach. Side rails up X2. Adult w/ patient. 16:10 No provider procedures requiring assistance completed. em 16:24 Rene Gay MD is Attending Physician. kdr 16:26 Triage completed. iw 17:29 Steve Tran LVN is Primary Nurse. em 18:45 Patient did not have IV access during this emergency room visit. em Administered Medications: No medications were administered Outcome: 18:22 Discharge ordered by . kdr 18:45 Discharged to home ambulatory, with family. em 18:45 Condition: good 18:45 Discharge instructions given to patient, Instructed on discharge instructions, follow up and referral plans. medication usage, Demonstrated understanding of instructions, follow-up care, medications, Prescriptions given X 1. 18:49 Patient left the ED. em Signatures: Rene Gay MD MD kdr Steve Tran LVN LVN Betty Douglass RN RN iw Corrections: (The following items were deleted from the chart) 16:09 16:06 Presenting complaint: EMS states: called out for "jerking" recently dx with UTI, em pt reports having a bad reaction to levofloxacin em
--- NOTE | 2017-11-14 18:23 | EDPHYS ---
Physician Documentation [facility] Name: Nikky Ocampo Age: 87 yrs Sex: Female : 1930 Arrival Date: 11/14/2017 Time: 16:06 Bed 20 Private MD: ED Physician Rene Gay Historical: - Allergies: 11/14 16:06 Codeine; em - PMHx: 16:06 Chronic leukemia; Hypertension; Pacemaker; em - Immunization history:: Adult Immunizations up to date. - Social history:: Smoking status: Patient/guardian denies using tobacco. Vital Signs: 16:09 BP 159 / 66; Pulse 75; Resp 18; Temp 97.8; Pulse Ox 95% on R/A; Weight 59.87 kg; Height em 5 ft. 5 in. (165.10 cm); Pain 6/10; 17:00 BP 141 / 77; Pulse 93; Resp 18; Pulse Ox 95% on R/A; Pain 0/10; em 18:52 BP 157 / 74; Pulse 88; Resp 18; Temp 97.8; Pulse Ox 96% on R/A; em 16:09 Body Mass Index 21.97 (59.87 kg, 165.10 cm) em MDM: 18:22 Patient medically screened. kdr 11/14 17:44 Order name: Urine Culture cc 11/14 18:48 Order name: Urine Dipstick--Ancillary (enter results) eb Administered Medications: No medications were administered Disposition: 11/14/17 18:22 Discharged to Home. Impression: UTI, rigors. - Condition is Stable. - Discharge Instructions: Urinary Tract Infection, [id number]. - Prescriptions for Macrobid 100 mg Oral Capsule - take 1 capsule by ORAL route every 12 hours for 14 days; 28 capsule. - Medication Reconciliation Form, Thank You Letter, Antibiotic Education, Prescription Opioid Use form. - Follow up: Private Physician; When: 2 - 3 days; Reason: If symptoms return, Further diagnostic work-up, Recheck today's complaints, Continuance of care, Re-evaluation by your physician. - Problem is new. - Symptoms have improved. Addendum: 12/01/2017 11:48 Addendum: CC: Jerking and possible UTI HPI: The patient as noted STAMP PRESSER to be have some k dr generalized jerking without change in LOC. She was recently put on abc for a UTI and has had bad reactions in the past to Levaquin. She has no other ? at this time and the jerking seems to have resolved by the time of our arrival . Addendum: ROS: Const: No fever, chills or weight loss Eyes: no visual changes or c/o, Neck: no pain or injury, CV: no CP or palpitations, Resp: no SOB, cough or congestion, Abd: no n/v/d or pain, Back: no pain or injury, : no pain or bleeding, MS/Ext: no pain, injury, swelling, tingling, Skin: no lacerations, pain, injury, skin turgor good, Neuro: CN grossly intact and no other deficits, the patient was having mild global slow tonic/clonic jerking STAMP PRESSER but has resolved now Psych: Appropriate for age, Allergy/Immunology: no rashes or other s/s, Endo: no evidence of polyuria, polydipsia, temperature control or other s/s . Addendum: Exam: Const: WDWN WF in NAD, Head/Face: no injury, pain or deformity, Eyes: PERRLA, ENT: no pain, injury or bleeding, Neck: no pain, injury or deformity, full ROM, Chest/Axilla: No pain, injury or deformity, CV: no rubs, gallops, murmurs, regular rate, Resp: CTAB, regular rate, Abd/GI: soft, NT, BS present in all quads and normal, Back: no injury or deformity, full ROM, MS/Extremity: no injury or deformity, FROM, distal pulses good and equal, Skin: no rashes, ecchymosis skin turgor good, Neuro: CN grossly intact, no other neuro deficits, Psych: appropriate for age, no SI/HI, no depression . Addendum: MDM (Discharge) All VS and nursing notes reviewed. The patient was counseled on the results and need for follow-up. The patient was discharged in stable condition. They were happy with the care they received and the plan for d/c and follow-up. . Signatures: Dispatcher [employer] Rene Seymour MD MD kdr Munoz, Edgar, PRICE CHECKER PRICE CHECKER em Corrections: (The following items were deleted from the chart) 04/20 18:49 18:22 11/14/2017 18:22 Discharged to Home. Impression: UTI, rigors. Condition is em Stable. Forms are Medication Reconciliation Form, Thank You Letter, Antibiotic Education, Prescription Opioid Use. Follow up: Private Physician; When: 2 - 3 days; Reason: If symptoms return, Further diagnostic work-up, Recheck today's complaints, Continuance of care, Re-evaluation by your physician. Problem is new. Symptoms have improved. kdr
[2017-11-14 18:54] VITALS: TEMP 97.8; O2SAT 95
[2017-11-14 18:55] VITALS: BP 141/77
[2017-11-14 19:11] LABS: Urine Blood NEGATIVE (NEG); Urine Glucose NEGATIVE (NEG); Urine Protein NEGATIVE (NEG)
== END 2017-11-14 18:49 | disposition home or self-care (01) ==
LOC: ER 15:56
DX: N39.0 Urinary tract infection, site not specified (principal); I10 Essential (primary) hypertension; Z88.5 Allergy status to narcotic agent; Z95.0 Presence of cardiac pacemaker; C95.10 Chronic leukemia of unspecified cell type not having achieved remission
CPT/HCPCS: 81003; 87086; 87088; 99283

== ENCOUNTER 2018-04-13 17:29 | Observation (INO) | payer OTHER ==
--- OUTSIDE RECORDS SUMMARY | 2018-04-13 17:32 | XMS REPORT | Clinical Summary ---
:1930 Author Organization [facility] Address [address] [place] [address] Phone Care Team Providers Name Role Phone Unavailable Primary Care Provider Unavailable Allergies Active Allergy Reactions Severity Noted Date Comments Codeine Nausea And Vomiting 09/23/2016 Hydrocodone-Acetaminophen 09/23/2016 Current Medications Prescription Sig. Disp. Refills Start Date End Date Status tamsulosin (FLOMAX) Take 0.4 mg by Active 0.4 mg Cp24 24 hr mouth daily. capsule carvedilol (COREG) Take 3.125 mg by Active 3.125 MG tablet mouth 2 (two) times daily with breakfast and dinner. furosemide (LASIX) 80 Take 80 mg by Active MG tablet mouth daily. levothyroxine Take 50 mcg by Active (SYNTHROID, mouth Every LEVOTHROID) 50 MCG morning on an tablet empty stomach. traMADol (ULTRAM) 50 Take 50 mg by Active mg tablet mouth 2 (two) times daily [...] Active (RESTASIS) 0.05 % into both eyes 2 ophthalmic emulsion (two) times daily. gabapentin Take 400 mg by Active (NEURONTIN) 400 MG mouth 4 (four) capsule times daily. aspirin 325 MG EC Take 1 tablet 30 tablet 0 10/03/2016 10/03/2017 tablet (325 mg total) by mouth daily. Active Problems Problem Noted Date Ventricular tachycardia (HCC) 01/06/2017 VT (ventricular tachycardia) ([facility]) 01/06/2017 Stenosis of right carotid artery 10/01/2016 Carotid stenosis, asymptomatic, right 09/25/2016 Essential hypertension 09/25/2016 Hypothyroidism 09/25/2016 Family History Medical History Relation Name Comments Cancer Father Cancer Mother Relation Name Status Comments Father Mother Social History Tobacco Use Types Packs/Day Years Used Date Former Smoker Quit: 06/27/1992 Alcohol Use Drinks/Week oz/Week Comments No Sex Assigned at Date Recorded Not on file Last Filed Vital Signs Not on file Plan of Treatment Health Maintenance Due Date Last Done Comments INFLUENZA VACCINE 04/27/2018 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 Expiration Model / Identifier Date Serial / Lot Lead Attain Performa 78cm [id number] - [id number] Cardiovascular N/A: [employer] :CARD 10/03/2018 [id number] / Implanted: Qty: 1 on 01/07/2017 by Satya Perales MD Chest RHY: DISEASE [id number] / MGT Ld Endocardial Df4 Act 55 [id number] - [id number] Defibrillators N/A: [employer]:CARD 10/10/2018 [id number] / Implanted: Qty: 1 on 01/07/2017 by Satya Perales MD Chest RHY: DISEASE [id number] / MGT Dev Amplia Quad Roving Weight Gauger-D Surescn [id number] - [id number] Defibrillators N/A: [employer]:CARD 04/24/2018 [id number] / Implanted: Qty: 1 on 01/07/2017 by Satya Perales MD Chest RHY:PACING SYS [id number] / Grft Hemshld Dbl Silvio 0.3x3.0in [id number] - [id number] Graft/Patch Right: GETINGE 04/26/2021 [id number] / Implanted: Qty: 1 on 10/01/2016 by Miguelangel Stack MD Neck IND:MAQUET:CV [id number] / [id number] Lead Pacemkr Capsur Novus 45x1 [id number] - [id number] Pacemaker Lead N/A: [employer]:CARD 09/23/2018 [id number] / Implanted: Qty: 1 on 01/07/2017 by Satya Perales MD Chest RHY: DISEASE [id number] / MGT Results Not on fileafter 04/12/2017
--- OUTSIDE RECORDS SUMMARY | 2018-04-13 17:32 | XMS REPORT ---
:1930 [facility] Address [address] [place] [address] Dr. [place] [address] [place] [id number] Care Team Providers Name Role Phone CHUCK MARTINEZ Unavailable Unavailable ABDIRAHMAN NOLAN Unavailable Unavailable Problems This patient has no known problems. Allergies, Adverse Reactions, Alerts This patient has no known allergies or adverse reactions. Medications This patient has no known medications. Results Test Description Test Time Test Comments Text Results Atomic Results Result Comments MAGNESIUM 2017-01-08 05:25:00 Test Item Value Reference Range Comments MAGNESIUM (BEAKER) (test mwio=327) 2.0 mg/dL 1.6-2.6 Specimen slightly hemolyzed BASIC METABOLIC [id number] 05:25:00 Test Item Value Reference Range Comments SODIUM (BEAKER) (test 138 meq/L 136-145 hkdc=793) POTASSIUM (BEAKER) (test 4.6 meq/L 3.5-5.1 Specimen slightly tsgq=235) hemolyzed CHLORIDE (BEAKER) (test 108 meq/L 98-107 igkp=901) CO2 (BEAKER) (test 23 meq/L 22-29 xkqw=848) BLOOD UREA NITROGEN 14 mg/dL 7-21 (BEAKER) (test adxh=475) CREATININE (BEAKER) (test 0.87 mg/dL 0.57-1.25 Specimen slightly htlc=844) hemolyzed GLUCOSE RANDOM (BEAKER) 109 mg/dL 70-105 (test kcsd=404) CALCIUM (BEAKER) (test 8.9 mg/dL 8.4-10.2 lsjb=833) EGFR (BEAKER) (test 62 mL/min/1.73 sq m ESTIMATED GFR IS NOT zbik=0965) ACCURATE CREATININE CLEARANCE IN PREDICTING GLOMERULAR FILTRATION RATE. ESTIMATED GFR IS NOT APPLICABLE FOR DIALYSIS PATIENTS. CBC (HEMOGRAM ONLY)2017-01-08 05:22:00 Test Item Value Reference Range Comments WHITE BLOOD CELL COUNT (BEAKER) (test qjct=607) 11.1 K/ L 4.0-10.0 RED BLOOD CELL COUNT (BEAKER) (test xjyv=423) 3.62 M/ L 4.00-5.00 HEMOGLOBIN (BEAKER) (test mieq=853) 12.2 GM/DL 12.0-15.0 HEMATOCRIT (BEAKER) (test juhs=218) 36.3 % 36.0-45.0 MEAN CORPUSCULAR VOLUME (BEAKER) (test bzfp=249) 101.0 fL 82.0-99.0 MEAN CORPUSCULAR HEMOGLOBIN (BEAKER) (test 33.9 pg 27.0-33.0 volx=889) MEAN CORPUSCULAR HEMOGLOBIN CONC (BEAKER) (test 33.7 GM/DL 32.0-36.0 xsmu=473) RED CELL DISTRIBUTION WIDTH (BEAKER) (test 15.2 % 10.3-14.2 fchw=826) PLATELET COUNT (BEAKER) (test ogpu=232) 201 K/CU MM 150-430 MEAN PLATELET VOLUME (BEAKER) (test yqmh=099) 7.6 fL 6.5-10.5 NUCLEATED RED BLOOD CELLS (BEAKER) (test 0 /100 WBC 0-0 bbha=153) 0.00CBC (HEMOGRAM ONLY)2017-01-07 05:01:00 Test Item Value Reference Range Comments WHITE BLOOD CELL COUNT (BEAKER) (test ijsn=220) 5.8 K/ L 4.0-10.0 RED BLOOD CELL COUNT (BEAKER) (test qeql=502) 3.68 M/ L 4.00-5.00 HEMOGLOBIN (BEAKER) (test ttwi=624) 12.1 GM/DL 12.0-15.0 HEMATOCRIT (BEAKER) (test mtha=797) 36.9 % 36.0-45.0 MEAN CORPUSCULAR VOLUME (BEAKER) (test fpuh=541) 100.0 fL 82.0-99.0 MEAN CORPUSCULAR HEMOGLOBIN (BEAKER) (test 33.0 pg 27.0-33.0 iocs=585) MEAN CORPUSCULAR HEMOGLOBIN CONC (BEAKER) (test 32.8 GM/DL 32.0-36.0 wanf=505) RED CELL DISTRIBUTION WIDTH (BEAKER) (test 13.5 % 10.3-14.2 rfbe=541) PLATELET COUNT (BEAKER) (test dhmu=203) 204 K/CU MM 150-430 MEAN PLATELET VOLUME (BEAKER) (test vxeo=212) 7.3 fL 6.5-10.5 NUCLEATED RED BLOOD CELLS (BEAKER) (test 0 /100 WBC 0-0 vubc=022) [id number] 02:15:00 Test Item Value Reference Range Comments MAGNESIUM (BEAKER) (test oycg=225) 2.2 mg/dL 1.6-2.6 BASIC METABOLIC [id number] 02:15:00 Test Item Value Reference Range Comments SODIUM (BEAKER) (test 142 meq/L 136-145 xnip=425) POTASSIUM (BEAKER) (test 4.0 meq/L 3.5-5.1 vdcb=435) CHLORIDE (BEAKER) (test 110 meq/L 98-107 czqh=170) CO2 (BEAKER) (test 23 meq/L 22-29 vzku=126) BLOOD UREA NITROGEN 21 mg/dL 7-21 (BEAKER) (test mvpe=794) CREATININE (BEAKER) (test 1.02 mg/dL 0.57-1.25 owad=813) GLUCOSE RANDOM (BEAKER) 102 mg/dL 70-105 (test hsna=063) CALCIUM (BEAKER) (test 8.9 mg/dL 8.4-10.2 jssn=681) EGFR (BEAKER) (test 51 mL/min/1.73 sq m ESTIMATED GFR IS NOT mbji=9129) ACCURATE CREATININE CLEARANCE IN PREDICTING GLOMERULAR FILTRATION RATE. ESTIMATED GFR IS NOT APPLICABLE FOR DIALYSIS PATIENTS. [id number] 02:02:00 Test Item Value Reference Range Comments PARTIAL THROMBOPLASTIN TIME (BEAKER) (test 67.1 seconds 22.5-36.0 vrjj=796) CBC W/PLT COUNT & AUTO [id number] 01:59:00 Test Item Value Reference Range Comments WHITE BLOOD CELL COUNT (BEAKER) (test kqpb=856) 5.2 K/ L 4.0-10.0 RED BLOOD CELL COUNT (BEAKER) (test yyiu=368) 3.33 M/ L 4.00-5.00 HEMOGLOBIN (BEAKER) (test lnny=728) 11.4 GM/DL 12.0-15.0 HEMATOCRIT (BEAKER) (test anyw=127) 33.5 % 36.0-45.0 MEAN CORPUSCULAR VOLUME (BEAKER) (test mamz=868) 101.0 fL 82.0-99.0 MEAN CORPUSCULAR HEMOGLOBIN (BEAKER) (test 34.4 pg 27.0-33.0 aonf=194) MEAN CORPUSCULAR HEMOGLOBIN CONC (BEAKER) (test 34.1 GM/DL 32.0-36.0 xfuk=349) RED CELL DISTRIBUTION WIDTH (BEAKER) (test 13.5 % 10.3-14.2 bzoh=519) PLATELET COUNT (BEAKER) (test oprg=995) 184 K/CU MM 150-430 MEAN PLATELET VOLUME (BEAKER) (test psvm=578) 7.0 fL 6.5-10.5 NUCLEATED RED BLOOD CELLS (BEAKER) (test 0 /100 WBC 0-0 xhyd=091) NEUTROPHILS RELATIVE PERCENT (BEAKER) (test 49 % ugpl=859) LYMPHOCYTES RELATIVE PERCENT (BEAKER) (test 34 % ruyl=459) MONOCYTES RELATIVE PERCENT (BEAKER) (test 10 % ygld=182) EOSINOPHILS RELATIVE PERCENT (BEAKER) (test 7 % iurr=635) BASOPHILS RELATIVE PERCENT (BEAKER) (test 0 % stzi=633) NEUTROPHILS ABSOLUTE COUNT (BEAKER) (test 2.52 K/ L 1.80-8.00 niec=400) LYMPHOCYTES ABSOLUTE COUNT (BEAKER) (test 1.75 K/ L 1.48-4.50 czcf=933) MONOCYTES ABSOLUTE COUNT (BEAKER) (test 0.54 K/ L 0.00-1.30 lazj=552) EOSINOPHILS ABSOLUTE COUNT (BEAKER) (test 0.34 K/ L 0.00-0.50 slrx=339) BASOPHILS ABSOLUTE COUNT (BEAKER) (test 0.02 K/ L 0.00-0.20 jwpq=072) 0.00DIGOXIN [id number] 18:00:00 Test Item Value Reference Range Comments DIGOXIN LEVEL (BEAKER) (test aplg=621) 0.4 ng/mL 0.8-2.0 TSH/FREE T4 IF [id number] 18:00:00 Test Item Value Reference Range Comments THYROID STIMULATING HORMONE (BEAKER) (test 1.47 uIU/mL 0.35-4.94 otvt=213) [id number] 17:35:00 Test Item Value Reference Range Comments MAGNESIUM (BEAKER) (test kolu=356) 2.4 mg/dL 1.6-2.6 Fasting lipid panelBASIC METABOLIC [id number] 17:35:00 Test Item Value Reference Range Comments SODIUM (BEAKER) (test 139 meq/L 136-145 yyyh=512) POTASSIUM (BEAKER) (test 3.9 meq/L 3.5-5.1 wywn=060) CHLORIDE (BEAKER) (test 105 meq/L 98-107 ooqe=118) CO2 (BEAKER) (test 27 meq/L 22-29 kfqj=243) BLOOD UREA NITROGEN 25 mg/dL 7-21 (BEAKER) (test vebl=686) CREATININE (BEAKER) (test 1.24 mg/dL 0.57-1.25 jjex=243) GLUCOSE RANDOM (BEAKER) 91 mg/dL 70-105 (test xaat=927) CALCIUM (BEAKER) (test 9.4 mg/dL 8.4-10.2 irbt=106) EGFR (BEAKER) (test 41 mL/min/1.73 sq m ESTIMATED GFR IS NOT jqnd=4619) ACCURATE CREATININE CLEARANCE IN PREDICTING GLOMERULAR FILTRATION RATE. ESTIMATED GFR IS NOT APPLICABLE FOR DIALYSIS PATIENTS. Fasting lipid panelLIPID [id number] 17:35:00 Test Item Value Reference Range Comments TRIGLYCERIDES (BEAKER) (test eniq=863) 81 mg/dL CHOLESTEROL (BEAKER) (test ihmj=263) 224 mg/dL HDL CHOLESTEROL (BEAKER) (test smgk=145) 96 mg/dL LDL CHOLESTEROL CALCULATED (BEAKER) (test 112 mg/dL adnx=010) Triglyceride Reference Range: Low Risk <150 Borderline 150- 199 High Risk 200-499 Very High Risk >=500Cholesterol Reference Range: Low Risk <200 Borderline 200-239 High Risk > 240HDL Cholesterol Reference Range: Low Risk >=60 High Risk <40LDL Cholesterol Reference Range: Optimal <100 Near Optimal 100-129 Borderline 130-159 High 160-189 Very High >=190 Fasting lipid panelHEPATIC FUNCTION [id number] 17:35:00 Test Item Value Reference Range Comments TOTAL PROTEIN (BEAKER) (test npzi=179) 7.7 gm/dL 6.0-8.3 ALBUMIN (BEAKER) (test jwdf=7222) 3.9 g/dL 3.5-5.0 BILIRUBIN TOTAL (BEAKER) (test qvjf=445) 1.1 mg/dL 0.2-1.2 BILIRUBIN DIRECT (BEAKER) (test dzof=638) 0.5 mg/dL 0.1-0.5 ALKALINE PHOSPHATASE (BEAKER) (test plcl=558) 120 U/L 40-150 AST (SGOT) (BEAKER) (test xjeo=834) 19 U/L 5-34 ALT (SGPT) (BEAKER) (test agdb=445) 19 U/L 6-55 Fasting lipid [id number] 17:24:00 Test Item Value Reference Range Comments PARTIAL THROMBOPLASTIN TIME (BEAKER) (test 37.0 seconds 22.5-36.0 yaup=572) Prior to initiating heparinPROTHROMBIN TIME/[id number] 17:23:00 Test Item Value Reference Range Comments PROTIME (BEAKER) (test frtr=238) 14.3 seconds 11.7-14.7 INR (BEAKER) (test qxgz=010) 1.1 <=5.9 RECOMMENDED COUMADIN/WARFARIN INR THERAPY RANGESSTANDARD DOSE: 2.0 - 3.0 Includes: PROPHYLAXIS forvenous thrombosis, systemic embolization; TREATMENT for venous thrombosis and/or pulmonary embolus.HIGH RISK: Target INR is 2.5-3.5 for patients with mechanical heart valves.Prior to initiating [id number] 17:23:00 Test Item Value Reference Range Comments PARTIAL THROMBOPLASTIN TIME (BEAKER) (test 36.6 seconds 22.5-36.0 uded=517) Prior to initiating heparinCBC W/PLT COUNT & AUTO [id number] 17: 20:00 Test Item Value Reference Range Comments WHITE BLOOD CELL COUNT (BEAKER) (test kqsx=819) 6.1 K/ L 4.0-10.0 RED BLOOD CELL COUNT (BEAKER) (test kker=997) 3.72 M/ L 4.00-5.00 HEMOGLOBIN (BEAKER) (test gcsz=755) 12.4 GM/DL 12.0-15.0 HEMATOCRIT (BEAKER) (test fjex=951) 37.4 % 36.0-45.0 MEAN CORPUSCULAR VOLUME (BEAKER) (test risj=686) 101.0 fL 82.0-99.0 MEAN CORPUSCULAR HEMOGLOBIN (BEAKER) (test 33.5 pg 27.0-33.0 fplo=875) MEAN CORPUSCULAR HEMOGLOBIN CONC (BEAKER) (test 33.2 GM/DL 32.0-36.0 jktu=333) RED CELL DISTRIBUTION WIDTH (BEAKER) (test 13.5 % 10.3-14.2 xnmi=161) PLATELET COUNT (BEAKER) (test baha=108) 219 K/CU MM 150-430 MEAN PLATELET VOLUME (BEAKER) (test kuyv=052) 7.0 fL 6.5-10.5 NUCLEATED RED BLOOD CELLS (BEAKER) (test 0 /100 WBC 0-0 qtmb=780) NEUTROPHILS RELATIVE PERCENT (BEAKER) (test 51 % qomv=472) LYMPHOCYTES RELATIVE PERCENT (BEAKER) (test 33 % cffj=317) MONOCYTES RELATIVE PERCENT (BEAKER) (test 10 % fldb=453) EOSINOPHILS RELATIVE PERCENT (BEAKER) (test 5 % gmef=485) BASOPHILS RELATIVE PERCENT (BEAKER) (test 1 % vyno=568) NEUTROPHILS ABSOLUTE COUNT (BEAKER) (test 3.09 K/ L 1.80-8.00 cisw=648) LYMPHOCYTES ABSOLUTE COUNT (BEAKER) (test 1.99 K/ L 1.48-4.50 xxdv=800) MONOCYTES ABSOLUTE COUNT (BEAKER) (test 0.62 K/ L 0.00-1.30 hcxv=336) EOSINOPHILS ABSOLUTE COUNT (BEAKER) (test 0.31 K/ L 0.00-0.50 stiv=552) BASOPHILS ABSOLUTE COUNT (BEAKER) (test 0.08 K/ L 0.00-0.20 astx=913) PLATELET [id number] 17:16:00 Test Item Value Reference Range Comments PLATELET COUNT (BEAKER) (test ngmj=779) 219 K/CU MM 150-430 BASIC METABOLIC [id number] 04:55:00 Test Item Value Reference Range Comments SODIUM (BEAKER) (test 141 meq/L 136-145 zygh=161) POTASSIUM (BEAKER) (test 3.3 meq/L 3.5-5.1 cicq=307) CHLORIDE (BEAKER) (test 104 meq/L 98-107 ymwl=247) CO2 (BEAKER) (test 28 meq/L 22-29 rgyf=739) BLOOD UREA NITROGEN 14 mg/dL 7-21 (BEAKER) (test hqru=826) CREATININE (BEAKER) (test 0.80 mg/dL 0.57-1.25 hxgb=144) GLUCOSE RANDOM (BEAKER) 97 mg/dL 70-105 (test rfpk=123) CALCIUM (BEAKER) (test 8.9 mg/dL 8.4-10.2 vwpq=214) EGFR (BEAKER) (test 68 mL/min/1.73 sq m ESTIMATED GFR IS NOT zltf=5567) ACCURATE CREATININE CLEARANCE IN PREDICTING GLOMERULAR FILTRATION RATE. ESTIMATED GFR IS NOT APPLICABLE FOR DIALYSIS PATIENTS. CBC (HEMOGRAM ONLY)2016-10-03 04:47:00 Test Item Value Reference Range Comments WHITE BLOOD CELL COUNT (BEAKER) (test uedm=689) 7.8 K/ L 4.0-10.0 RED BLOOD CELL COUNT (BEAKER) (test gbks=564) 3.12 M/ L 4.00-5.00 HEMOGLOBIN (BEAKER) (test kizg=589) 11.2 GM/DL 12.0-15.0 HEMATOCRIT (BEAKER) (test quhu=848) 32.5 % 36.0-45.0 MEAN CORPUSCULAR VOLUME (BEAKER) (test jajb=085) 104.0 fL 82.0-99.0 MEAN CORPUSCULAR HEMOGLOBIN (BEAKER) (test 35.8 pg 27.0-33.0 qneb=888) MEAN CORPUSCULAR HEMOGLOBIN CONC (BEAKER) (test 34.4 GM/DL 32.0-36.0 ddcy=647) RED CELL DISTRIBUTION WIDTH (BEAKER) (test 12.8 % 10.3-14.2 kkyw=137) PLATELET COUNT (BEAKER) (test pimu=311) 190 K/CU MM 150-430 MEAN PLATELET VOLUME (BEAKER) (test ztus=527) 7.4 fL 6.5-10.5 NUCLEATED RED BLOOD CELLS (BEAKER) (test 0 /100 WBC 0-0 qzys=736) [id number] 04:41:00 Test Item Value Reference Range Comments PROTIME (BEAKER) (test bykk=416) 13.1 seconds 11.7-14.7 INR (BEAKER) (test gbya=253) 1.0 <=5.9 PARTIAL THROMBOPLASTIN TIME (BEAKER) (test 28.1 seconds 22.5-36.0 xqxc=411) RECOMMENDED COUMADIN/WARFARIN INR THERAPY RANGESSTANDARD DOSE: 2.0 - 3.0 Includes: PROPHYLAXIS forvenous thrombosis, systemic embolization; TREATMENT for venous thrombosis and/or pulmonary embolus.HIGH RISK: Target INR is 2.5-3.5 for patients with mechanical heart valves.CREATINE KINASE (CK), TOTAL AND [id number] 04:53:00 Test Item Value Reference Range Comments CREATINE KINASE TOTAL (BEAKER) (test lxdt=052) 36 U/L 29-200 CREATINE KINASE-MB (BEAKER) (test ffdm=970) 1.6 ng/mL 0.0-6.6 CREATINE KINASE-MB INDEX (BEAKER) (test ntox=499) 4.4 % Effective 06/14/2014: CK-MB Reference Range ChangeNew: 0.0-6.6 Previous: 0.0- 4.9CK-MB Reference Range:<6.7 Normal6.7-10.0 Borderline>10.0 AbnormalTROPONIN [id number] 04:53:00 Test Item Value Reference Range Comments TROPONIN I (BEAKER) (test axtk=187) 0.03 ng/mL 0.00-0.03 Effective 06/14/2014: Reference Range [...] acute neurological disease, and persistent tachyarrhythmia.BASIC METABOLIC [id number] 04:46:00 Test Item Value Reference Range Comments SODIUM (BEAKER) (test 139 meq/L 136-145 gapv=954) POTASSIUM (BEAKER) (test 3.7 meq/L 3.5-5.1 lriy=587) CHLORIDE (BEAKER) (test 104 meq/L 98-107 qdwj=510) CO2 (BEAKER) (test 27 meq/L 22-29 lijq=808) BLOOD UREA NITROGEN 14 mg/dL 7-21 (BEAKER) (test prsz=014) CREATININE (BEAKER) (test 0.82 mg/dL 0.57-1.25 rwuv=237) GLUCOSE RANDOM (BEAKER) 102 mg/dL 70-105 (test hqaj=260) CALCIUM (BEAKER) (test 9.1 mg/dL 8.4-10.2 rnft=428) EGFR (BEAKER) (test 66 mL/min/1.73 sq m ESTIMATED GFR IS NOT ubth=6494) ACCURATE CREATININE CLEARANCE IN PREDICTING GLOMERULAR FILTRATION RATE. ESTIMATED GFR IS NOT APPLICABLE FOR DIALYSIS PATIENTS. PT/[id number] 04:41:00 Test Item Value Reference Range Comments PROTIME (BEAKER) (test imrg=802) 13.5 seconds 11.7-14.7 INR (BEAKER) (test qjtb=584) 1.0 <=5.9 PARTIAL THROMBOPLASTIN TIME (BEAKER) (test 33.1 seconds 22.5-36.0 qare=589) RECOMMENDED COUMADIN/WARFARIN INR THERAPY RANGESSTANDARD DOSE: 2.0 - 3.0 Includes: PROPHYLAXIS forvenous thrombosis, systemic embolization; TREATMENT for venous thrombosis and/or pulmonary embolus.HIGH RISK: Target INR is 2.5-3.5 for patients with mechanical heart valves.CBC (HEMOGRAM ONLY)2016-10-02 04:33:00 Test Item Value Reference Range Comments WHITE BLOOD CELL COUNT (BEAKER) (test qdim=222) 9.4 K/ L 4.0-10.0 RED BLOOD CELL COUNT (BEAKER) (test sevq=314) 3.07 M/ L 4.00-5.00 HEMOGLOBIN (BEAKER) (test ighm=382) 11.0 GM/DL 12.0-15.0 HEMATOCRIT (BEAKER) (test firs=257) 31.9 % 36.0-45.0 MEAN CORPUSCULAR VOLUME (BEAKER) (test jbod=026) 104.0 fL 82.0-99.0 MEAN CORPUSCULAR HEMOGLOBIN (BEAKER) (test 36.0 pg 27.0-33.0 eqaq=030) MEAN CORPUSCULAR HEMOGLOBIN CONC (BEAKER) (test 34.6 GM/DL 32.0-36.0 bmnz=834) RED CELL DISTRIBUTION WIDTH (BEAKER) (test 12.7 % 10.3-14.2 pdhf=938) PLATELET COUNT (BEAKER) (test pwzc=548) 205 K/CU MM 150-430 MEAN PLATELET VOLUME (BEAKER) (test ofah=782) 7.3 fL 6.5-10.5 NUCLEATED RED BLOOD CELLS (BEAKER) (test 0 /100 WBC 0-0 haad=885) 0.00TSH/FREE T4 IF [id number] 19:30:00 Test Item Value Reference Range Comments THYROID STIMULATING HORMONE (BEAKER) (test 0.43 uIU/mL 0.35-4.94 qlwn=842) CREATINE KINASE (CK), TOTAL AND [id number] 19:14:00 Test Item Value Reference Range Comments CREATINE KINASE TOTAL (BEAKER) (test sveb=070) 53 U/L 29-200 CREATINE KINASE-MB (BEAKER) (test zkdp=873) 2.6 ng/mL 0.0-6.6 CREATINE KINASE-MB INDEX (BEAKER) (test zqyi=913) 4.9 % Effective 06/14/2014: CK-MB Reference Range ChangeNew: 0.0-6.6 Previous: 0.0- 4.9CK-MB Reference Range:<6.7 Normal6.7-10.0 Borderline>10.0 AbnormalTROPONIN [id number] 19:14:00 Test Item Value Reference Range Comments TROPONIN I (BEAKER) (test jnbl=784) 0.01 ng/mL 0.00-0.03 Effective 06/14/2014: Reference Range [...] renalfailure, acidosis, acute neurological disease, and persistent tachyarrhythmia.[id number] 15:20: 00 Test Item Value Reference Range Comments MAGNESIUM (BEAKER) (test aubu=430) 1.9 mg/dL 1.6-2.6 BASIC METABOLIC [id number] 15:20:00 Test Item Value Reference Range Comments SODIUM (BEAKER) (test 141 meq/L 136-145 xmhn=206) POTASSIUM (BEAKER) (test 3.9 meq/L 3.5-5.1 ofjb=081) CHLORIDE (BEAKER) (test 108 meq/L 98-107 zair=854) CO2 (BEAKER) (test 25 meq/L 22-29 juyf=936) BLOOD UREA NITROGEN 14 mg/dL 7-21 (BEAKER) (test tmzr=285) CREATININE (BEAKER) (test 0.84 mg/dL 0.57-1.25 rmeb=240) GLUCOSE RANDOM (BEAKER) 130 mg/dL 70-105 (test fjob=079) CALCIUM (BEAKER) (test 8.8 mg/dL 8.4-10.2 cbdq=343) EGFR (BEAKER) (test 64 mL/min/1.73 sq m ESTIMATED GFR IS NOT skuj=3485) ACCURATE CREATININE CLEARANCE IN PREDICTING GLOMERULAR FILTRATION RATE. ESTIMATED GFR IS NOT APPLICABLE FOR DIALYSIS PATIENTS. CBC (HEMOGRAM ONLY)2016-10-01 14:52:00 Test Item Value Reference Range Comments WHITE BLOOD CELL COUNT (BEAKER) (test gpyu=356) 10.1 K/ L 4.0-10.0 RED BLOOD CELL COUNT (BEAKER) (test rqkq=210) 3.40 M/ L 4.00-5.00 HEMOGLOBIN (BEAKER) (test jigm=398) 11.9 GM/DL 12.0-15.0 HEMATOCRIT (BEAKER) (test merf=238) 34.6 % 36.0-45.0 MEAN CORPUSCULAR VOLUME (BEAKER) (test bxwh=304) 102.0 fL 82.0-99.0 MEAN CORPUSCULAR HEMOGLOBIN (BEAKER) (test 35.1 pg 27.0-33.0 mixo=806) MEAN CORPUSCULAR HEMOGLOBIN CONC (BEAKER) (test 34.5 GM/DL 32.0-36.0 tvyq=953) RED CELL DISTRIBUTION WIDTH (BEAKER) (test 13.5 % 10.3-14.2 sznk=645) PLATELET COUNT (BEAKER) (test gqup=913) 204 K/CU MM 150-430 MEAN PLATELET VOLUME (BEAKER) (test lvnk=553) 7.4 fL 6.5-10.5 NUCLEATED RED BLOOD CELLS (BEAKER) (test 0 /100 WBC 0-0 szza=836) 0.00BASIC METABOLIC [id number] 11:00:00 Test Item Value Reference Range Comments SODIUM (BEAKER) (test 142 meq/L 136-145 xcjy=735) POTASSIUM (BEAKER) (test 4.5 meq/L 3.5-5.1 opab=730) CHLORIDE (BEAKER) (test 103 meq/L 98-107 gakt=368) CO2 (BEAKER) (test 28 meq/L 22-29 nlep=982) BLOOD UREA NITROGEN 28 mg/dL 7-21 (BEAKER) (test besr=456) CREATININE (BEAKER) (test 1.04 mg/dL 0.57-1.25 nckg=476) GLUCOSE RANDOM (BEAKER) 98 mg/dL 70-105 (test xwqs=486) CALCIUM (BEAKER) (test 9.8 mg/dL 8.4-10.2 dizt=496) EGFR (BEAKER) (test 50 mL/min/1.73 sq m ESTIMATED GFR IS NOT fdhy=1855) ACCURATE CREATININE CLEARANCE IN PREDICTING GLOMERULAR FILTRATION RATE. ESTIMATED GFR IS NOT APPLICABLE FOR DIALYSIS PATIENTS. CBC W/PLT COUNT & AUTO [id number] 10:59:00 Test Item Value Reference Range Comments WHITE BLOOD CELL COUNT (BEAKER) (test mggu=338) 7.0 K/ L 4.0-10.0 RED BLOOD CELL COUNT (BEAKER) (test vqfx=425) 3.77 M/ L 4.00-5.00 HEMOGLOBIN (BEAKER) (test booq=197) 13.2 GM/DL 12.0-15.0 HEMATOCRIT (BEAKER) (test nrjk=944) 38.5 % 36.0-45.0 MEAN CORPUSCULAR VOLUME (BEAKER) (test clyz=543) 102.0 fL 82.0-99.0 MEAN CORPUSCULAR HEMOGLOBIN (BEAKER) (test 34.9 pg 27.0-33.0 proi=149) MEAN CORPUSCULAR HEMOGLOBIN CONC (BEAKER) (test 34.2 GM/DL 32.0-36.0 wrcn=566) RED CELL DISTRIBUTION WIDTH (BEAKER) (test 13.6 % 10.3-14.2 jzzw=384) PLATELET COUNT (BEAKER) (test rptf=286) 233 K/CU MM 150-430 MEAN PLATELET VOLUME (BEAKER) (test kkrx=957) 7.3 fL 6.5-10.5 NUCLEATED RED BLOOD CELLS (BEAKER) (test 0 /100 WBC 0-0 pwnc=698) NEUTROPHILS RELATIVE PERCENT (BEAKER) (test 60 % plxy=135) LYMPHOCYTES RELATIVE PERCENT (BEAKER) (test 27 % bajj=576) MONOCYTES RELATIVE PERCENT (BEAKER) (test 9 % fnep=683) EOSINOPHILS RELATIVE PERCENT (BEAKER) (test 3 % xcpy=940) BASOPHILS RELATIVE PERCENT (BEAKER) (test 1 % rtsm=374) NEUTROPHILS ABSOLUTE COUNT (BEAKER) (test 4.20 K/ L 1.80-8.00 plbl=277) LYMPHOCYTES ABSOLUTE COUNT (BEAKER) (test 1.92 K/ L 1.48-4.50 ezpj=048) MONOCYTES ABSOLUTE COUNT (BEAKER) (test 0.60 K/ L 0.00-1.30 bpyy=221) EOSINOPHILS ABSOLUTE COUNT (BEAKER) (test 0.23 K/ L 0.00-0.50 hbqs=191) BASOPHILS ABSOLUTE COUNT (BEAKER) (test 0.07 K/ L 0.00-0.20 uvwy=370) 0.00PT/[id number] 10:58:00 Test Item Value Reference Range Comments PROTIME (BEAKER) (test vbej=795) 12.7 seconds 11.7-14.7 INR (BEAKER) (test bfru=427) 1.0 <=5.9 PARTIAL THROMBOPLASTIN TIME (BEAKER) (test 29.7 seconds 22.5-36.0 wvze=518) RECOMMENDED COUMADIN/WARFARIN INR THERAPY RANGESSTANDARD DOSE: 2.0 - 3.0 Includes: PROPHYLAXIS forvenous thrombosis, systemic embolization; TREATMENT for venous thrombosis and/or pulmonary embolus.HIGH RISK: Target INR is 2.5-3.5 for patients with mechanical heart valves.
[2018-04-13 19:22] LABS: Absolute Lymphocytes (CBC) 5.4 K/uL (0.7-4.9); Absolute Neutrophil 9.6 K/uL (1.8-8.0); Basophils % 2.3 % (0-1.3); Eosinophils % 3.7 % (0-4.4); Hematocrit 27.8 % (36.0-45.0); Lymphocytes % 28.2 % (15.3-44.8); MCH 30.5 pg (27.0-35.0); MCV 94.8 fL (80-100); MPV 7.9 fL (7.6-11.3); Monocytes % 15.5 % (3.3-12.3); RBC Red Blood Cell Count 2.93 M/uL (3.86-4.86)
[2018-04-13 19:33] LABS: ALT/SGPT 20 U/L (12-78); AST/SGOT 45 U/L (15-37); Albumin 3.3 g/dL (3.4-5.0); Alkaline Phosphatase 94 U/L (45-117); BUN Blood Urea Nitrogen 26 mg/dL (7-18); Bicarbonate 24 mmol/L (21-32); Bilirubin Direct 0.1 mg/dL (0-0.2); Bilirubin Total 0.4 mg/dL (0.2-1.0); Ferritin 50.7 ng/mL (8-388); Glucose Level 91 mg/dL (74-106); Potassium 4.8 mmol/L (3.5-5.1); Protein, Total 7.3 g/dL (6.4-8.2); Sodium Level 139 mmol/L (136-145); Uric Acid 10.6 mg/dL (2.6-6.0)
[2018-04-13 20:33] LABS: Platelet Estimate INCR; Platelets, Giant MANY
[2018-04-13 20:34] LABS: Anisocytosis 1+; Blood Morphology Comment NOTED (NOT SEEN); Poikilocytosis 1+
[2018-04-13 21:05] LABS: Folic Acid, (Folate) 8.8 ng/mL (3.1-17.5); Transferrin 364 mg/dL (200-360)
--- NOTE | 2018-04-13 21:34 | EDPHYS ---
Physician Documentation [facility] Name: Nikky Ocampo Age: 88 yrs Sex: Female : 1930 Arrival Date: 04/13/2018 Time: 17:30 Bed 13 Private MD: Out, [facility] ED Physician Hernan Diggs HPI: 04/13 20:00 This 88 yrs old Female presents to ER via Ambulatory with complaints of [facility] wa [facility]. 20:00 h/o CML. sent here for abnormal labs. pt had to stop meds due to bone biopsy. had wa biopsy done today. also c/o bleeding at site of bone biopsy. . Onset: The symptoms/episode began/occurred today. Severity of symptoms: At their worst the symptoms were moderate in the emergency department the symptoms are unchanged. The patient has not experienced similar symptoms in the past. The patient has been recently seen by a physician: her oncologist is Dr. Kraft. Historical: - Allergies: 17:54 Codeine; sg - PMHx: 17:54 Chronic leukemia; Hypertension; Pacemaker; sg - Immunization history:: Adult Immunizations up to date. - Social history:: Smoking status: Patient/guardian denies using tobacco. - Ebola Screening: : Patient negative for fever greater than or equal to 101.5 degrees Fahrenheit, and additional compatible Ebola Virus Disease symptoms Patient denies exposure to infectious person Patient denies travel to an Ebola-affected area in the 21 days before illness onset No symptoms or risks identified at this time. - Family history:: not pertinent. - Hospitalizations: : No recent hospitalization is reported. ROS: 20:03 Constitutional: Negative for fever, chills, and weight loss, Eyes: Negative for injury, wa pain, redness, and discharge, ENT: Negative for injury, pain, and discharge, Neck: Negative for injury, pain, and swelling, Cardiovascular: Negative for chest pain, palpitations, and edema, Respiratory: Negative for shortness of breath, cough, wheezing, and pleuritic chest pain, Abdomen/GI: Negative for abdominal pain, nausea, vomiting, diarrhea, and constipation, Back: Negative for injury and pain, : Negative for injury, bleeding, discharge, and swelling, MS/Extremity: Negative for injury and deformity, Neuro: Negative for headache, weakness, numbness, tingling, and seizure, Psych: Negative for depression, anxiety, suicide ideation, homicidal ideation, and hallucinations. 20:03 Skin: Positive for blood-soaked dressing noted at site of biopsy directly above the left lateral glut. 20:03 All other systems are negative. Exam: 20:05 Constitutional: This is a well developed, well nourished patient who is awake, alert, wa and in no acute distress. Head/Face: Normocephalic, atraumatic. Eyes: Pupils equal round and reactive to light, extra-ocular motions intact. Lids and lashes normal. Conjunctiva and sclera are non-icteric and not injected. Cornea within normal limits. Periorbital areas with no swelling, redness, or edema. ENT: Nares patent. No nasal discharge, no septal abnormalities noted. Tympanic membranes are normal and external auditory canals are clear. Oropharynx with no redness, swelling, or masses, exudates, or evidence of obstruction, uvula midline. Mucous membranes moist. Neck: Trachea midline, no thyromegaly or masses palpated, and no cervical lymphadenopathy. Supple, full range of motion without nuchal rigidity, or vertebral point tenderness. No Meningismus. Chest/axilla: Normal chest wall appearance and motion. Nontender with no deformity. No lesions are appreciated. Cardiovascular: Regular rate and rhythm with a normal S1 and S2. No gallops, murmurs, or rubs. Normal PMI, no JVD. No pulse deficits. Respiratory: Lungs have equal breath sounds bilaterally, clear to auscultation and percussion. No rales, rhonchi or wheezes noted. No increased work of breathing, no retractions or nasal flaring. Abdomen/GI: Soft, non-tender, with normal bowel sounds. No distension or tympany. No guarding or rebound. No evidence of tenderness throughout. Back: No spinal tenderness. No costovertebral tenderness. Full range of motion. MS/ Extremity: Pulses equal, no cyanosis. Neurovascular intact. Full, normal range of motion. Neuro: Awake and alert, GCS 15, oriented to person, place, time, and situation. Cranial nerves II-XII grossly intact. Motor strength 5/5 in all extremities. Sensory grossly intact. Cerebellar exam normal. Normal gait. Psych: Awake, alert, with orientation to person, place and time. Behavior, mood, and affect are within normal limits. 20:05 Skin: lesion(s), located on the L posterior hip. blood-soaked gauze, mild oozing on dressing change. Vital Signs: 17:45 BP 148 / 58; Pulse 78; Resp 19; Temp 98; Pulse Ox 99% on R/A; kr2 20:23 BP 143 / 54; Pulse 78; Resp 17; Temp 98(O); Pulse Ox 99% ; kr2 23:08 BP 148 / 50; Pulse 80; Resp 16; Pulse Ox 99% on R/A; kr2 MDM: 18:09 Patient medically screened. ma 21:29 Differential Diagnosis abnml CBC with thrombocytopenia and leukocytosis. elevated LDH wa and uric acid. Data reviewed: vital signs, nurses notes. Physician consultation:. Admission orders: after a detailed discussion of the patient's condition and case, the admit orders are written by me. Other consultation:. ED course: spoke with pt's oncologist. advised hydroxyurea 1g BID. admit for obs. allopurinol. 04/13 18:21 Order name: CBC with Diff; Complete Time: 21:04 ma 04/13 18:21 Order name: BMP; Complete Time: 21:27 ma 04/13 18:21 Order name: LFT's; Complete Time: 21:27 ma 04/13 18:35 Order name: Slides for Pathologist Review [facility] 04/13 18:41 Order name: Add On-Lab ma 04/13 19:02 Order name: Retic Count; Complete Time: 21:05 [facility] 04/13 19:02 Order name: Uric Acid; Complete Time: 21:27 [facility] 04/13 19:02 Order name: Lactic Dehydrogenase; Complete Time: 21:27 [facility] 04/13 19:02 Order name: Ferritin [facility] 04/13 18:21 Order name: IV Start; Complete Time: 19:12 ma 04/13 19:47 Order name: Manual Differential; Complete Time: 21:04 [facility] 04/13 20:31 Order name: Transferrin Sat/Iron Binding [facility] 04/13 20:31 Order name: Folic Acid, (Folate); Complete Time: 21:16 [facility] 04/13 20:31 Order name: Vitamin B12 Level; Complete Time: 21:27 [facility] 04/13 22:20 Order name: Urine Microscopic Only [facility] 04/13 22:32 Order name: Urine Dipstick--Ancillary (enter results) rg2 04/13 22:38 Order name: Urine Dipstick-Ancillary EDMS Administered Medications: 22:25 Drug: NS 0.9% 1000 ml Route: IV; Rate: 125 ml/hr; Site: right forearm; kr2 23:10 Follow up: Response: No adverse reaction; IV Status: Infusion continued upon admission kr2 Disposition: 04/13/18 21:51 Hospitalization ordered by Britany Liang for Observation. Preliminary diagnosis are Thrombocytosis, Leukocytosis, hyperuricemia. - Bed requested for Telemetry/MedSurg (observation). - Status is Observation. kr2 - Condition is Stable. - Problem is new. - Symptoms have improved. UTI on Admission? No Signatures: Dispatcher [employer] EDMS Alana Briggs RN RN mw Gay, Steven RN Lauren Bass RN RN bb Appiah, William, MD MD wa Reaves, Karey, RN RN kr2 Corrections: (The following items were deleted from the chart) 18:38 18:38 FERRITIN+C.LAB.BRZ ordered. EDUT EDMS 19:02 18:38 LACTIC DEHYDROGENASE+C.LAB.BRZ ordered. EDUT EDMS 19:02 18:38 FERRITIN+C.LAB.BRZ ordered. EDUT EDMS 19:02 18:38 RETIC COUNT+H.LAB.BRZ ordered. EDUT EDMS 19:02 18:38 URIC ACID+C.LAB.BRZ ordered. EDUT EDMS 21:35 21:33 Hospitalization Ordered by Britany Liang MD for Observation. Preliminary giles diagnosis is Thrombocytopenia; Leukocytosis; Hyperuricemia. Bed requested for Telemetry/MedSurg (observation). Status is Observation. Condition is Stable. Problem is an acute exacerbation. Symptoms are unchanged. UTI on Admission? No. varsha 21:50 21:35 04/13/2018 21:33 Hospitalization Ordered by Britany Liang MD for Observation. varsha Preliminary diagnosis is Thrombocytopenia; Leukocytosis; Hyperuricemia. Bed requested for Telemetry/MedSurg (observation). Status is Observation. Condition is Stable. Problem is an acute exacerbation. Symptoms are unchanged. UTI on Admission? No. giles 21:56 21:51 Hospitalization Ordered by Britany iLang MD for Observation. Preliminary bb diagnosis is Thrombocytosis; Leukocytosis; hyperuricemia. Bed requested for Telemetry/MedSurg (observation). Status is Observation. Condition is Stable. Problem is new. Symptoms have improved. UTI on Admission? No. wa 23:13 21:56 04/13/2018 21:51 Hospitalization Ordered by Britany Liang MD for Observation. kr2 Preliminary diagnosis is Thrombocytosis; Leukocytosis; hyperuricemia. Bed requested for Telemetry/MedSurg (observation). Status is Observation. Condition is Stable. Problem is new. Symptoms have improved. UTI on Admission? No. bb
--- NOTE | 2018-04-13 21:34 | ER ---
Nurse's Notes [facility] Name: Nikky Ocampo Age: 88 yrs Sex: Female : 1930 Arrival Date: 04/13/2018 Time: 17:30 Bed 13 Private MD: Out, [facility] Diagnosis: Thrombocytosis;Leukocytosis;hyperuricemia Presentation: 04/13 17:52 Presenting complaint: Patient states: was sent to [facility] for sg sedation prior to bonemarrow aspiration, well when i got home my dressing was completely saturated in blood and just has not stopped. The provider called with my results and has instructed me to come here due to platelet count and having a very low WBC number. Transition of care: patient was not received from another setting of care. Onset of symptoms was April 13, 2018. Risk Assessment: Do you want to hurt yourself or someone else? Patient reports no desire to harm self or others. Initial Sepsis Screen: Does the patient meet any 2 criteria? No. Patient's initial sepsis screen is negative. Does the patient have a suspected source of infection? No. Patient's initial sepsis screen is negative. Care prior to arrival: None. 17:52 Method Of Arrival: Ambulatory sg 17:52 Acuity: TASIA 3 sg Triage Assessment: 17:54 General: Appears in no apparent distress. Behavior is calm, cooperative, appropriate sg for age. Musculoskeletal: Circulation, motion, and sensation intact. Range of motion: intact in all extremities. Historical: - Allergies: 17:54 Codeine; sg - PMHx: 17:54 Chronic leukemia; Hypertension; Pacemaker; sg - Immunization history:: Adult Immunizations up to date. - Social history:: Smoking status: Patient/guardian denies using tobacco. - Ebola Screening: : Patient negative for fever greater than or equal to 101.5 degrees Fahrenheit, and additional compatible Ebola Virus Disease symptoms Patient denies exposure to infectious person Patient denies travel to an Ebola-affected area in the 21 days before illness onset No symptoms or risks identified at this time. - Family history:: not pertinent. - Hospitalizations: : No recent hospitalization is reported. Screenin:00 Abuse screen: Denies threats or abuse. Denies injuries from another. Nutritional kr2 screening: No deficits noted. Tuberculosis screening: No symptoms or risk factors identified. Fall Risk None identified. Assessment: 18:00 General: Appears in no apparent distress. comfortable, well groomed, well developed, kr2 emaciated, Behavior is calm, cooperative, appropriate for age. Pain: Denies pain. Neuro: Level of Consciousness is awake, alert, obeys commands, Oriented to person, place, time, situation. Cardiovascular: Capillary refill < 3 seconds in bilateral fingers Patient's skin is warm and dry. Respiratory: Airway is patent Respiratory effort is even, unlabored, Respiratory pattern is regular, symmetrical. GI: Abdomen is flat, non-distended. Derm: Skin is fragile, is thin, with poor turgor Skin is dry, Skin is pale, pink, Skin temperature is warm Patient had bone marrow aspiration done earlier today and site to left hip area oozing blood. Musculoskeletal: Circulation, motion, and sensation intact. 19:00 Reassessment: Patient appears in no apparent distress at this time. Patient and/or kr2 family updated on plan of care and expected duration. Pain level reassessed. Patient is alert, oriented x 3, equal unlabored respirations, skin warm/dry/pink. Site cleaned, surgicell applied to site, covered with ABD pad and secured with tape. 20:25 Reassessment: Patient appears in no apparent distress at this time. Patient and/or kr2 family updated on plan of care and expected duration. Pain level reassessed. Patient is alert, oriented x 3, equal unlabored respirations, skin warm/dry/pink. 22:26 Reassessment: Patient appears in no apparent distress at this time. Patient and/or kr2 family updated on plan of care and expected duration. Pain level reassessed. Patient is alert, oriented x 3, equal unlabored respirations, skin warm/dry/pink. Patient assisted to restroom, walks with cane. Urine sample collected, urine cloudy with foul odor. 23:10 Reassessment: Patient appears in no apparent distress at this time. Patient and/or kr2 family updated on plan of care and expected duration. Pain level reassessed. Patient is alert, oriented x 3, equal unlabored respirations, skin warm/dry/pink. Vital Signs: 17:45 BP 148 / 58; Pulse 78; Resp 19; Temp 98; Pulse Ox 99% on R/A; kr2 20:23 BP 143 / 54; Pulse 78; Resp 17; Temp 98(O); Pulse Ox 99% ; kr2 23:08 BP 148 / 50; Pulse 80; Resp 16; Pulse Ox 99% on R/A; kr2 ED Course: 17:30 Patient arrived in ED. sb2 17:31 Out, of [facility] is Private Physician. sb2 17:54 Triage completed. sg 17:54 Arm band placed on. sg 18:00 Patient has correct armband on for positive identification. Bed in low position. Call kr2 light in reach. Side rails up X 1. Adult w/ patient. Pulse ox on. NIBP on. Door closed. Warm blanket given. Head of bed elevated. 18:09 Hernan Diggs MD is Attending Physician. wa 18:30 Initial lab(s) drawn, by me, sent to lab. kr2 19:11 Jackie Templeton, RN is Primary Nurse. kr2 21:32 Britany Liang MD is Hospitalizing Provider. wa 21:50 Britany Liang MD is Hospitalizing Provider. wa 21:55 Inserted saline lock: 22 gauge in right forearm, using aseptic technique. cb2 22:25 Urine collected: clean catch specimen, cloudy. kr2 23:08 No provider procedures requiring assistance completed. Patient admitted, IV remains in kr2 place. Administered Medications: 22:25 Drug: NS 0.9% 1000 ml Route: IV; Rate: 125 ml/hr; Site: right forearm; kr2 23:10 Follow up: Response: No adverse reaction; IV Status: Infusion continued upon admission kr2 Outcome: 21:33 Decision to Hospitalize by Provider. wa 21:51 Decision to Hospitalize by Provider. wa 23:09 Admitted to Tele accompanied by chalino, via wheelchair, room 417, with chart, Report kr2 called to AKILA Sanchez 23:09 Condition: stable 23:09 Instructed on the need for admit, Demonstrated understanding of instructions. 23:13 Patient left the ED. kr2 Signatures: Sunil Polanco, RN Mikey Kapoor cb2 Hernan Diggs MD MD md Jackie Templeton RN RN kr2 Henrimargaret Emma sb2
--- NOTE | 2018-04-13 22:20 | P.HP ---
Certification for Inpatient Patient admitted to: Inpatient With expected LOS: >2 Midnights Practitioner: I am a practitioner with admitting privileges, knowledge of patient current condition, hospital course, and medical plan of care. Services: Services provided to patient in accordance with Admission requirements found in Title 42 Section 412.3 of the Code of Federal Regulations Patient History Date of Service: 04/13/18 Reason for admission: Thrombocytosis, CML History of Present Illness: Ms Ocampo is an 88-year-old woman with history of CML is follow-up by Dr. Jolley, the patient had a bone marrow biopsy done today. Lab work was remarkable for thrombocytosis 2799, then her boss miner referred the patient to ER to start treatment. The patient denied any nausea, vomiting, chest pain, shortness of breath, dizziness, fever or chills. She has complained of chronic neuropathic pain due to history of shingles, and also at the site of the bone Merrill biopsy. The rest of laboratory work was remarkable for WBC 19.1 K, hemoglobin 8.9 mg/dl, uric acid 10.6. He has been recommended to start treatment with hydroxyurea, allopurinol, oxygen and IV fluids. Allergies codeine [Codeine] Adverse Reaction (Verified 02/01/12 09:06) vomiting Home Medications: Gabapentin [Neurontin*] 300 mg PO TID 03/24/13 Nortriptyline HCl [Pamelor*] 75 mg PO BEDTIME 03/24/13 traMADol HCL [Ultram*] 50 mg PO TIDP PRN 03/24/13 Furosemide [Lasix*] 40 mg PO DAILY 09/06/13 Levothyroxine [Synthroid*] 50 mcg PO DAILY 09/06/13 Econazole Nitrate 15 gm TP BID 10/26/15 Estradiol [Estrace] 42.5 gm VG BID 10/26/15 Mupirocin Oint [Bactroban 2% Ointment*] 22 gm TP BID 10/26/15 Nilotinib HCl [Tasigna] 150 mg PO BID 10/26/15 Fluticasone/Salmeterol [Advair 250-50 Diskus] 1 each IH BID #1 disk.w.dev predniSONE [Deltasone*] 10 mg PO BID #20 tab 10/30/15 Carvedilol [Coreg*] 3.125 mg PO BID #60 tab 11/01/15 Collagenase [Santyl Ointment] 30 appl TOP DAILY #1 tube 11/01/15 Valsartan [Diovan*] 40 mg PO DAILY #30 tab 11/01/15 - Past Medical/Surgical History Diabetic: No -: Congestive Heart Failure, CAD -: GERD -: Edema -: Varicose Veins -: Peripheral Neuropathy -: CML (chronic myeloid leukemia) -: Vitamin D Deficiency -: Hypothyroidism -: Insomnia -: Renal Insufficiency Syndrome -: Anemia -: Angiodysplasia of intestine with hemorrhage -: Hysterectomy -: Back surgery x2 -: Gallbladder removal -: bladder sx. - Family History Family History: Reviewed- Non-Contributory - Social History Smoking Status: Former smoker Alcohol use: Yes CD- Drugs: No Caffeine use: Yes Place of Residence: Home Review of Systems 10-point ROS is otherwise unremarkable Physical Examination - Physical Exam General: Alert, In no apparent distress HEENT: Atraumatic, PERRLA, Mucous membr. moist/pink, EOMI, Sclerae nonicteric Neck: Supple, 2+ carotid pulse no bruit, No LAD, Without JVD or thyroid abnormality Respiratory: Clear to auscultation bilaterally, Normal air movement Cardiovascular: Regular rate/rhythm, Normal S1 S2, Systolic murmur Gastrointestinal: Normal bowel sounds, No tenderness Musculoskeletal: No tenderness Integumentary: No rashes Neurological: Normal speech, Normal strength at 5/5 x4 extr, Normal tone, Normal affect Lymphatics: No axilla or inguinal lymphadenopathy - Studies Laboratory Data (last 24 hrs) 04/13/18 18:40: Sodium 139, Potassium 4.8, BUN 26 H, Creatinine 1.50 H, Glucose 91, Uric Acid 10.6 H, Total Bilirubin 0.4, AST 45 H, ALT 20, Alkaline Phosphatase 94 04/13/18 18:40: WBC 19.1 H, Hgb 8.9 L, Hct 27.8 L, Plt Count 2799 H* 04/13/18 18:37: Uric Acid Cancelled Assessment and Plan - Plan Assessment: 1. Thrombocytosis 2. CML 3. Pacemaker placement 4. CKD 5. Hyperuricemia Plan: Will admit the patient to medical floor, and started hydroxyurea 1 g p.o. b.i.d. , allopurinol 300 mg p.o. daily, oxygen and IV fluids as he was recommended by her boss miner. - Advance Directives Does patient have a Living Will: Yes Does patient have a Durable POA for Healthcare: Yes
[2018-04-13 22:37] LABS: Urine Blood 1+ (NEG); Urine Glucose NEGATIVE (NEG)
[2018-04-13 22:38] LABS: Urine Protein TRACE (NEG)
[2018-04-13 22:47] LABS: Urine Bacteria >50 /HPF (<20); Urine Culture Reflex Order REFLEXED; Urine RBC <5 /HPF (NONE SEEN)
[2018-04-13] MEDS ORDERED: ONDANSETRON 4 MG/2 ML VIAL IV PRN (23:30)
[2018-04-14 00:30] VITALS: BMI 21.0
[2018-04-14] MEDS: TRAMADOL HCL 50 MG TAB PO PRN ×3 (00:49→23:30)
[2018-04-14] MEDS: ALLOPURINOL 300 MG TAB PO SCH ×2 (00:49→10:19)
[2018-04-14] MEDS: NA CHLORIDE 0.9% 1,000 ML IV SCH ×2 (00:55→09:30)
[2018-04-14] MEDS: HYDROXYUREA 500 MG CAP PO SCH ×3 (02:52→20:51)
[2018-04-14 04:25] LABS: Basophils % 2.4 % (0-1.3); Eosinophils % 4.2 % (0-4.4); Hematocrit 24.1 % (36.0-45.0); Lymphocytes % 25.9 % (15.3-44.8); MCH 31.5 pg (27.0-35.0); MPV 7.7 fL (7.6-11.3); Monocytes % 17.9 % (3.3-12.3); RBC Red Blood Cell Count 2.56 M/uL (3.86-4.86)
[2018-04-14 04:48] LABS: Potassium 4.2 mmol/L (3.5-5.1)
--- NOTE | 2018-04-14 08:56 | P.PN ---
Date of Service: 04/14/18 (Hematology/Oncology) Pt seen today at 8.20 am. Patient known to us with a chronic history of CML for almost 30 years. She has been on multiple chemo regimens and also Tyrosine kinase inhibitors (TKI). She was reasonably doing well on nilotinib (tasigna) for a while until her bcr abl transcripts were uptrending. The bcr abl transcripts improved with compliance. Lately there has been issues with compliance again, problems with her remembering to take the pills, not following dietary restrictions and also she had concerns about the vascular atherosclerotic complications with tasigna. Due to this reason, tasigna was held and she was referred to MD [facility]ias for further management (she was previously a pt of [facility]). Unfortunately, MD Macias did not take her insurance and she finally agreed for the bone marrow biopsy which she had it done CT guided at [facility] on 04/13/18. Her plt count was reportedly at 2700 when done at [facility] yesterday and hence she was sent to the ER for evaluation and adequate management in hospital given her advanced age, other co-morbidities and issues with compliance. When seen today, pt was sleeping comfortably. She has been on IVF. She denies any discomfort other than her chronic right lower extremity reece pain. No bleeding or bruising from any site. She has been started on hydrea and allopurinol. 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 no ulcers. dpp LABS: Plt 2700; WBC 19; Hb 8.9 LDH>1000 uric acid 10 retic 3.4% smear: Reflects h/o CML with left shift; a few blasts. PROBLEMS: 1. CML 2. Thrombocytosis 3. Anemia 4. Leucocytosis 5. CHF RECOMMENDATIONS: 1. Severe thrombocytosis secondary to underlying CML off TKI. s/p bone marrow biopsy on 04/13/18 in [facility] which was done to assess status and any TKI resistance. Results pending but on a preliminary review, the pathologist there, does not feel that she is in accelerated or blast phase. Patient will need to be started back on TKI which has kept her disease atleast somewhat in control so far. She remains skeptical about restarting nilotinib. Alternate options of TKI needs to be considered but likely be challenging as she is concerned about potential side effects involved including vascular, cardiac and GI complications To keep in mind, she has h/o GI bleed in the past due to AVM. Once bone marrow results are back, a comprehensive discussion is needed to discuss goals of care and realistic options given progression of disease if not on treatment. For now, she has been started on hydrea as an attempt to bring down the plt counts. c/w Hydrea 1 gm PO bid (will dose escalate if needed). High LDH due to increase in counts. She has been started on allopurinol. Monitor renal functions and respiratory status closely due to h/o CHF. Daily cmp, LDH, uric acid. Monitor cbc bid. 2. Anemia: Due to above. Await bone marrow biopsy results to assess if any dysplastic changes. Iron panel, B12 adequate Transfuse PRBC to keep Hb >8. 3. Leucocytosis: Also due to CML. Will monitor. Likely to come down with hydrea. Keep a low threshold to transfer to a tertiary setting if higher level of care needed if any evidence of complications due to thrombocytosis or CML. d/w Dr Olivia.
[2018-04-14] MEDS: APIXABAN 2.5 MG TABLET PO SCH ×2 (11:59→20:48)
[2018-04-14] MEDS ORDERED: TRAMADOL HCL 50 MG TAB PO PRN (12:34)
[2018-04-14] MEDS ORDERED: GABAPENTIN 400 MG CAP PO SCH (13:00)
[2018-04-14] MEDS: Levofloxacin500mg IV 500 MG/100 ML BAG IV SCH (13:12)
[2018-04-14 13:39] LABS: Hematocrit 27.1 % (36.0-45.0)
[2018-04-14] MEDS: GABAPENTIN 300 MG CAP PO SCH ×2 (16:09→20:47)
--- NOTE | 2018-04-14 16:44 | P.PN ---
Subjective Date of Service: 04/14/18 Primary Care Provider: Dr. Jolley Chief Complaint: Thrombocytosis, CML Subjective: Improving Physical Examination - Vital Signs Temperature: 97.4 F Blood Pressure: 136/64 Pulse: 69 Respirations: 16 Pulse Ox (%): 91 - Physical Exam General: Alert, In no apparent distress, Oriented x3, Cooperative HEENT: Atraumatic Neck: Supple Respiratory: Clear to auscultation bilaterally, Normal air movement Cardiovascular: Normal pulses, Regular rate/rhythm Gastrointestinal: Normal bowel sounds, Soft and benign, Non-distended, No tenderness, No masses, No rebound, No guarding Musculoskeletal: No erythema, No tenderness, No warmth Integumentary: No erythema, No warmth, No cyanosis Neurological: Normal speech, Normal strength at 5/5 x4 extr, Normal tone, Normal affect Lymphatics: No axilla or inguinal lymphadenopathy - Studies Laboratory Data (last 24 hrs) 04/13/18 18:40: Sodium 139, Potassium 4.8, BUN 26 H, Creatinine 1.50 H, Glucose 91, Uric Acid 10.6 H, Total Bilirubin 0.4, AST 45 H, ALT 20, Alkaline Phosphatase 94 04/13/18 18:40: WBC 19.1 H, Hgb 8.9 L, Hct 27.8 L, Plt Count 2799 H* 04/13/18 18:37: Uric Acid Cancelled Medications List Reviewed: Yes Assessment & Plan Discharge Plan: Home Plan to discharge in: 24 Hours Physician Review Additional Text: Impression: 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 Will continue with hydroxyurea. Await recent bone marrow results. Await peripheral smear. If peripheral smear shows increased blasts patient may require transfer. Will continue with her other medications including anti coagulation therapy. Will reassess tomorrow. Continue with her other medications for hypothyroidism, hypertension. Will try to maintain hemoglobin above 8.0. If below 8 patient may require transfusion. Time Spent Managing Pts Care (In Minutes): 55
[2018-04-14] MEDS: METOPROLOL XL 25 MG TAB PO SCH (20:49)
[2018-04-14] MEDS: NORTRIPTYLINE HCL 25 MG CAP PO SCH (20:50)
[2018-04-14] MEDS ORDERED: METOPROLOL XL 25 MG TAB PO SCH (21:00)
[2018-04-14] MEDS ORDERED: NORTRIPTYLINE HCL 25 MG CAP PO SCH (21:00)
[2018-04-15 04:49] LABS: Absolute Lymphocytes (CBC) 3.5 K/uL (0.7-4.9); Absolute Monocytes 1.9 K/uL (0.1-1.3); Basophils % 1.9 % (0-1.3); Eosinophils % 5.4 % (0-4.4); Hematocrit 24.1 % (36.0-45.0); Lymphocytes % 28.8 % (15.3-44.8); MCH 30.8 pg (27.0-35.0); MCV 94.1 fL (80-100); MPV 7.8 fL (7.6-11.3); Monocytes % 15.2 % (3.3-12.3); RBC Red Blood Cell Count 2.56 M/uL (3.86-4.86)
[2018-04-15 04:54] LABS: Magnesium 2.3 mg/dL (1.8-2.4); Potassium 4.6 mmol/L (3.5-5.1)
[2018-04-15] MEDS ORDERED: LEVOTHYROXINE SOD 0.05 MG TABLET PO SCH (06:30)
[2018-04-15] MEDS: GABAPENTIN 300 MG CAP PO SCH ×4 (09:00→21:00)
[2018-04-15] MEDS ORDERED: DIGOXIN 0.125 MG TABLET PO SCH (09:00)
[2018-04-15] MEDS: METOPROLOL XL 25 MG TAB PO SCH (09:00)
[2018-04-15] MEDS: APIXABAN 2.5 MG TABLET PO SCH (09:00)
[2018-04-15] MEDS: ALLOPURINOL 300 MG TAB PO SCH (09:00)
[2018-04-15] MEDS: HYDROXYUREA 500 MG CAP PO SCH ×2 (09:00→21:45)
--- NOTE | 2018-04-15 09:56 | P.PN ---
Subjective Date of Service: 04/15/18 Primary Care Provider: Dr. Jolley Chief Complaint: Thrombocytosis, CML Subjective: Improving Physical Examination - Vital Signs Temperature: 97 F Blood Pressure: 110/44 Pulse: 68 Respirations: 16 Pulse Ox (%): 92 - Physical Exam General: Alert, In no apparent distress, Oriented x3, Cooperative HEENT: Atraumatic Neck: Supple Respiratory: Clear to auscultation bilaterally, Normal air movement Cardiovascular: Normal pulses, Regular rate/rhythm Gastrointestinal: Normal bowel sounds, Soft and benign, Non-distended, No tenderness, No masses, No rebound, No guarding Musculoskeletal: No erythema, No tenderness, No warmth Integumentary: No tenderness/swelling, No erythema, No warmth, No cyanosis Neurological: Normal speech, Normal strength at 5/5 x4 extr, Normal tone, Normal affect Lymphatics: No axilla or inguinal lymphadenopathy - Studies Medications List Reviewed: Yes Assessment & Plan Discharge Plan: Home Plan to discharge in: 24 Hours Physician Review Additional Text: Impression: Thrombocytosis with history of CML, improving Chronic kidney disease, stage 3 Atrial fibrillation on Chronic anti coagulation therapy Hyperuricemia UTI, Urine culture positive for E. coli Anemia secondary to chronic disease, requiring transfusion of pRBCs Hypothyroidism Hypertension Neuropathy Plan: Thrombocytosis with CML-Case discussed at length with hematology/oncology. Will transfuse patient with 2 units of pRBCs to maintain Hemoglobin above 8.0. Thrombocytosis improving. Will continue to monitor. Will recheck CBC, Uric acid and LDH tomorrow. No blast crisis identified. Anticipate DC home tomorrow. Chronic Kidney disease-Renal function improved. Will continue to monitor. Atrial fibrillation- Stable. Continue with rate control medication and chronic anticoagulation Patient with UTI. E. coli identified. Await sensitivities. Will continue with Levaquin. Hypothyroidism-Continue with medication. HTN-Stable, continue with medication. Hyperuricemia-Continue with Allopurinol. Recheck Lab tomorrow. Time Spent Managing Pts Care (In Minutes): 55
[2018-04-15] MEDS ORDERED: HOME MED 1 EA UNK (Gabapentin [Gabapentin] 600 MG) PO SCH (13:00)
[2018-04-15] MEDS: Levofloxacin500mg IV 500 MG/100 ML BAG IV SCH (13:00)
[2018-04-15 14:15] LABS: Uric Acid 7.6 mg/dL (2.6-6.0)
[2018-04-15] MEDS ORDERED: TRAMADOL HCL 50 MG PO PRN (17:16)
--- NOTE | 2018-04-15 19:32 | P.PN ---
Date of Service: 04/15/18 (Hem/Onc) Pt seen today at 5pm. Appears well, comfortable and watching TV. Denies any problems. Updated her with the preliminary bone marrow biopsy report. As per pathologist in [facility] Thor Valles, bone marrow appears to be somewhat in the accelerated phase. More than the CML, she seems to show dysplastic changes/ ? possibility of MDS which could also explain the anemia. Vitals Stable; labs noted. For now, c/w hydrea. Patient does not wish to c/w tasigna. She wishes to discuss about alternate TKI options- went over the available options with next line bosutinib, ponatinib etc. We will discuss again with her daughter present as well. She understands that each of the approved TKI have their own side effect profile. She understands the possibility of poor tolerance and also disease progression. She will get 2 prbc today to keep her Hb >9, given H/o CHF/CAD. Hyperuricemia and renal functions improved. C/w allopurinol. Follow up cbc, cmp, LDH, uric acid in am. Will follow.
[2018-04-15] MEDS: NORTRIPTYLINE HCL 25 MG CAP PO SCH (21:00)
[2018-04-15] MEDS: AMOX/K CLAV 500 MG TAB PO SCH (21:44)
[2018-04-15] MEDS: METOPROLOL 25 MG PO SCH (21:44)
[2018-04-15] MEDS: GABAPENTIN PO SCH (21:45)
[2018-04-15] MEDS ORDERED: NA CHLORIDE 0.9% 250 ML ONE (22:00)
[2018-04-15 22:09] VITALS: O2SAT 98
[2018-04-16] MEDS: FUROSEMIDE 20 MG/ 2ML VIAL IV SCH ×2 (02:22→06:07)
[2018-04-16] MEDS ORDERED: TRAMADOL HCL 50 MG TAB PO ONE (04:56)
[2018-04-16] MEDS ORDERED: LEVOTHYROXINE SODIUM PO SCH (06:00)
[2018-04-16 08:15] LABS: Absolute Monocytes 1.3 K/uL (0.1-1.3); Absolute Neutrophil 5.5 K/uL (1.8-8.0); Basophils % 3.8 % (0-1.3); Eosinophils % 4.8 % (0-4.4); Hematocrit 36.7 % (36.0-45.0); MCV 91.9 fL (80-100); MPV 7.9 fL (7.6-11.3); Monocytes % 11.2 % (3.3-12.3)
[2018-04-16] MEDS: ALLOPURINOL 300 MG TAB PO SCH (08:33)
[2018-04-16] MEDS: GABAPENTIN 300 MG CAP PO SCH ×3 (08:33→16:40)
[2018-04-16] MEDS: AMOX/K CLAV 500 MG TAB PO SCH (08:33)
[2018-04-16] MEDS: HYDROXYUREA 500 MG CAP PO SCH (08:34)
[2018-04-16] MEDS: GABAPENTIN PO SCH ×3 (08:35→16:39)
[2018-04-16] MEDS: METOPROLOL 25 MG PO SCH (08:35)
[2018-04-16 08:47] LABS: BUN Blood Urea Nitrogen 22 mg/dL (7-18); Bicarbonate 26 mmol/L (21-32); Glucose Level 101 mg/dL (74-106); Magnesium 2.2 mg/dL (1.8-2.4); Potassium 4.4 mmol/L (3.5-5.1); Sodium Level 140 mmol/L (136-145); Uric Acid 6.5 mg/dL (2.6-6.0)
--- NOTE | 2018-04-16 12:03 | P.DS ---
Admission Date: 04/13/18 Discharge Date: 04/16/18 Primary Care Provider: Dr. Jolley Disposition: ROUTINE DISCHARGE Discharge Condition: GOOD Reason for Admission: Thrombocytosis, CML Consultations: Oncology-Dr. 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 Patient with [id number] DNR. Brief History of Present Illness: 88-year-old female presented to the hospital as a direct admit due to thrombocytosis. Patient was admitted for treatment. 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 Patient had recent bone marrow biopsy. Patient was recently evaluated by oncology. Due to her thrombocytosis patient was admitted for treatment. Hydroxyurea was started. Patient has done well with medication. At discharge she will continue with hydroxyurea 1000 mg 1 pill twice daily. Recommendation is to follow up with Oncology in 1 week to monitor progress and consider future medication for CML. Further adjustment in medication can be done by oncology. Patient has Chronic kidney disease stage 4. This remained stable during the course of her stay. Recommendation is to recheck lab-BMP in 1-2 weeks to monitor progress. Patient with anemia of chronic disease. Patient required transfusion of blood. Hematology/oncology recommends to maintain hemoglobin above 9.0. Patient received 2 units of blood. Hemoglobin stable at discharge. Recommendation is to recheck lab-CBC in 1 week to monitor progress. Patient has Chronic atrial fibrillation on chronic anti coagulation therapy. At discharge patient will continue with her medications including digoxin 0.125 mg as directed, Eliquis 2.5 mg 1 pill twice daily, and metoprolol XL 25 mg daily. Patient found to have UTI, urine culture positive for E coli. At discharge she will continue with Augmentin 500 mg 1 pill twice daily for 7 days. UTI prevention education will be provided. Patient has hypothyroidism. She will continue with her medication-Levoxyl 50 mcg daily. Patient has hypertension. She will continue with her medication-metoprolol XL 25 mg 1 pill daily. Patient with hyperuricemia secondary to thrombocytosis/CML. Patient received treatment during the course of her stay. She will continue with allopurinol 300 mg 1 pill daily. Recommendation to recheck lab-uric acid in 1-2 weeks to monitor progress. Further adjustment can be done by Hematology/Oncology. Patient with neuropathy. Patient will continue with Neurontin 600 mg 4 times a day and tramadol 50 mg 1 pill twice daily as needed for pain. Patient with chronic systolic congestive heart failure with ejection fraction 27 %. Patient will continue with a 1500 cc per day fluid restriction and low-salt diet. Patient will continue with Lasix 20 mg daily as needed. Patient is DNR. Patient has [id number] DNR. Vital Signs/Physical Exam: Temp Pulse Resp BP Pulse Ox 97.2 F 81 81 H 119/59 L 92 04/16/18 08:00 04/16/18 08:00 04/16/18 08:00 04/16/18 08:00 04/16/18 08:00 General: Alert, In no apparent distress, Oriented x3, Cooperative HEENT: Atraumatic Neck: Supple Respiratory: Clear to auscultation bilaterally, Normal air movement Cardiovascular: Normal pulses, Regular rate/rhythm Gastrointestinal: Normal bowel sounds, Soft and benign, Non-distended, No tenderness, No masses, No rebound, No guarding Musculoskeletal: No erythema, No tenderness, No warmth Integumentary: No tenderness/swelling, No erythema, No warmth, No cyanosis Neurological: Normal speech, Normal strength at 5/5 x4 extr, Normal tone, Normal affect Laboratory Data at Discharge: WBC 11.9 K/uL (4.3-10.9) H 04/16/18 07:52 Hgb 12.4 g/dL (12.0-15.0) D 04/16/18 07:52 Hct 36.7 % (36.0-45.0) D 04/16/18 07:52 Plt Count 2216 K/uL (152-406) H* 04/16/18 07:52 Sodium 140 mmol/L (136-145) 04/16/18 07:52 Potassium 4.4 mmol/L (3.5-5.1) 04/16/18 07:52 BUN 22 mg/dL (7-18) H 04/16/18 07:52 Creatinine 1.20 mg/dL (0.55-1.3) 04/16/18 07:52 Glucose 101 mg/dL (74-106) 04/16/18 07:52 Uric Acid 6.5 mg/dL (2.6-6.0) H 04/16/18 07:52 Magnesium 2.2 mg/dL (1.8-2.4) 04/16/18 07:52 Total Bilirubin 0.4 mg/dL (0.2-1.0) 04/13/18 18:40 AST 45 U/L (15-37) H 04/13/18 18:40 ALT 20 U/L (12-78) 04/13/18 18:40 Alkaline Phosphatase 94 U/L (45-117) 04/13/18 18:40 Home Medications: RX: Nortriptyline HCl [Pamelor*] 75 mg PO BEDTIME 03/24/13 RX: Levothyroxine [Synthroid*] 0.05 mg PO DAILY 09/06/13 RX: Apixaban [Eliquis *] 2.5 mg PO BID 04/14/18 RX: Digoxin [Lanoxin*] 0.125 mg PO SEECOM 04/14/18 RX: Furosemide [Lasix*] 20 mg PO DAILYPRN PRN 04/14/18 RX: Gabapentin 600 mg PO QID 04/14/18 RX: Metoprolol Succinate [Toprol Xl*] 25 mg PO BID 04/14/18 RX: Tramadol HCl [Ultram] 50 mg PO BIDP PRN 04/14/18 RX: Allopurinol [Zyloprim*] 300 mg PO DAILY #30 tab 04/16/18 RX: Amox/Clavulanate [Augmentin 500-125 mg Tab*] 500 mg PO BID #12 tab 04/16/18 RX: Hydroxyurea [Hydrea*] 1,000 mg PO BID #120 cap 04/16/18 New Medications: RX: Allopurinol [Zyloprim*] 300 mg PO DAILY #30 tab RX: Amox/Clavulanate [Augmentin 500-125 mg Tab*] 500 mg PO BID #12 tab RX: Hydroxyurea [Hydrea*] 1,000 mg PO BID #120 cap Patient Discharge Instructions: 1. Patient will need a follow up with a PCP in 1 week to follow up this hospitalization. 2. 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 Patient had recent bone marrow biopsy. Patient was recently evaluated by oncology. Due to her thrombocytosis patient was admitted for treatment. Hydroxyurea was started. Patient has done well with medication. At discharge she will continue with hydroxyurea 1000 mg 1 pill twice daily. Recommendation is to follow up with Oncology in 1 week to monitor progress and consider future medication for CML. Further adjustment in medication can be done by oncology. 3. Patient has Chronic kidney disease stage 4. This remained stable during the course of her stay. Recommendation is to recheck lab-BMP in 1-2 weeks to monitor progress. 4. Patient with anemia of chronic disease. Patient required transfusion of blood. Hematology/oncology recommends to maintain hemoglobin above 9.0. Patient received 2 units of blood. Hemoglobin stable at discharge. Recommendation is to recheck lab-CBC in 1 week to monitor progress. 5. Patient has Chronic atrial fibrillation on chronic anti coagulation therapy. At discharge patient will continue with her medications including digoxin 0.125 mg as directed, Eliquis 2.5 mg 1 pill twice daily, and metoprolol XL 25 mg daily. 6. Patient found to have UTI, urine culture positive for E coli. At discharge she will continue with Augmentin 500 mg 1 pill twice daily for 7 days. UTI prevention education will be provided. 7. Patient has hypothyroidism. She will continue with her medication-Levoxyl 50 mcg daily. 8. Patient has hypertension. She will continue with her medication-metoprolol XL 25 mg 1 pill daily. 9. Patient with hyperuricemia secondary to thrombocytosis/CML. Patient received treatment during the course of her stay. She will continue with allopurinol 300 mg 1 pill daily. Recommendation to recheck lab-uric acid in 1-2 weeks to monitor progress. Further adjustment can be done by Hematology/Oncology. 10. Patient with neuropathy. Patient will continue with Neurontin 600 mg 4 times a day and tramadol 50 mg 1 pill twice daily as needed for pain. 11. Patient with chronic systolic congestive heart failure with ejection fraction 27%. Patient will continue with a 1500 cc per day fluid restriction and low-salt diet. Patient will continue with Lasix 20 mg daily as needed. 12. Patient is DNR. Patient has [id number] DNR. Diet: AHA Activity: Fall precautions Time spent managing pt's care (in minutes): 55
[2018-04-16 12:38] VITALS: BP 96/50
[2018-04-16 14:01] VITALS: TEMP 97.1
[2018-04-17] MEDS ORDERED: DIGOXIN PO SCH (09:00)
== END 2018-04-16 17:18 | disposition home or self-care (01) ==
LOC: ER 17:29 → ERHOLD 21:35 → 4TH 22:41
PROVIDERS: ADMIT Internal Medicine; ATTEND Internal Medicine
DX: D47.3 Essential (hemorrhagic) thrombocythemia (principal); C92.10 Chronic myeloid leukemia, BCR/ABL-positive, not having achieved remission; E03.9 Hypothyroidism, unspecified; I13.0 Hypertensive heart and chronic kidney disease with heart failure and stage 1 through stage 4 chronic kidney disease, or unspecified chronic kidney disease; N18.4 Chronic kidney disease, stage 4 (severe); I50.22 Chronic systolic (congestive) heart failure; N39.0 Urinary tract infection, site not specified; B96.20 Unspecified Escherichia coli [E. coli] as the cause of diseases classified elsewhere; I48.2 Chronic atrial fibrillation; K21.9 Gastro-esophageal reflux disease without esophagitis; Z79.01 Long term (current) use of anticoagulants; Z87.891 Personal history of nicotine dependence; Z95.0 Presence of cardiac pacemaker; Z91.14 Patient's other noncompliance with medication regimen; Z66 Do not resuscitate
CPT/HCPCS: 36415 ×3; 80048 ×4; 80076; 82607; 82728; 82746; 83540; 83615 ×3; 83735 ×2; 84466; 84550 ×3; 85014; 85018; 85025 ×4; 85044; 86850; 86900; 86901; 87077; 87086; 87088; 87186; J1940 ×2; J7030; P9040 ×2; 81003; 81015

== ENCOUNTER 2018-05-12 12:15 | Inpatient (IN) | payer OTHER ==
--- OUTSIDE RECORDS SUMMARY | 2018-05-12 12:18 | XMS REPORT ---
:1930 [facility] Organization [facility] Address [address] [place] [address] Dr. [place] [address] [place] [id number] Care Team Providers Name Role Phone CHUCK [...] Value Reference Range Comments MAGNESIUM (BEAKER) (test zxmd=602) 2.0 mg/dL 1.6-2.6 Specimen slightly hemolyzed BASIC METABOLIC [id number] 05:25:00 Test Item Value Reference Range Comments SODIUM (BEAKER) (test 138 meq/L 136-145 mdyo=169) POTASSIUM (BEAKER) (test 4.6 meq/L 3.5-5.1 Specimen slightly awkn=055) hemolyzed CHLORIDE (BEAKER) (test 108 meq/L 98-107 zrnj=599) CO2 (BEAKER) (test 23 meq/L 22-29 fbxo=752) BLOOD UREA NITROGEN 14 mg/dL 7-21 (BEAKER) (test qkzl=914) CREATININE (BEAKER) (test 0.87 mg/dL 0.57-1.25 Specimen slightly iqya=649) hemolyzed GLUCOSE RANDOM (BEAKER) 109 mg/dL 70-105 (test qxgm=129) CALCIUM (BEAKER) (test 8.9 mg/dL 8.4-10.2 aqmg=080) EGFR (BEAKER) (test 62 mL/min/1.73 sq m ESTIMATED GFR IS NOT npjj=3593) ACCURATE CREATININE CLEARANCE IN PREDICTING GLOMERULAR FILTRATION RATE. ESTIMATED GFR IS NOT APPLICABLE FOR DIALYSIS PATIENTS. CBC (HEMOGRAM ONLY)2017-01-08 05:22:00 Test Item Value Reference Range Comments WHITE BLOOD CELL COUNT (BEAKER) (test oxxj=779) 11.1 K/ L 4.0-10.0 RED BLOOD CELL COUNT (BEAKER) (test bxvq=915) 3.62 M/ L 4.00-5.00 HEMOGLOBIN (BEAKER) (test abfu=377) 12.2 GM/DL 12.0-15.0 HEMATOCRIT (BEAKER) (test fulr=679) 36.3 % 36.0-45.0 MEAN CORPUSCULAR VOLUME (BEAKER) (test hlno=459) 101.0 fL 82.0-99.0 MEAN CORPUSCULAR HEMOGLOBIN (BEAKER) (test 33.9 pg 27.0-33.0 ekmo=583) MEAN CORPUSCULAR HEMOGLOBIN CONC (BEAKER) (test 33.7 GM/DL 32.0-36.0 xead=654) RED CELL DISTRIBUTION WIDTH (BEAKER) (test 15.2 % 10.3-14.2 fgdw=365) PLATELET COUNT (BEAKER) (test dtmo=565) 201 K/CU MM 150-430 MEAN PLATELET VOLUME (BEAKER) (test xkgz=056) 7.6 fL 6.5-10.5 NUCLEATED RED BLOOD CELLS (BEAKER) (test 0 /100 WBC 0-0 qrjm=091) 0.00CBC (HEMOGRAM ONLY)2017-01-07 05:01:00 Test Item Value Reference Range Comments WHITE BLOOD CELL COUNT (BEAKER) (test wgfq=722) 5.8 K/ L 4.0-10.0 RED BLOOD CELL COUNT (BEAKER) (test rlwg=070) 3.68 M/ L 4.00-5.00 HEMOGLOBIN (BEAKER) (test cvud=322) 12.1 GM/DL 12.0-15.0 HEMATOCRIT (BEAKER) (test nadd=354) 36.9 % 36.0-45.0 MEAN CORPUSCULAR VOLUME (BEAKER) (test kcii=051) 100.0 fL 82.0-99.0 MEAN CORPUSCULAR HEMOGLOBIN (BEAKER) (test 33.0 pg 27.0-33.0 mkfn=524) MEAN CORPUSCULAR HEMOGLOBIN CONC (BEAKER) (test 32.8 GM/DL 32.0-36.0 qigj=816) RED CELL DISTRIBUTION WIDTH (BEAKER) (test 13.5 % 10.3-14.2 mduf=382) PLATELET COUNT (BEAKER) (test xmoq=545) 204 K/CU MM 150-430 MEAN PLATELET VOLUME (BEAKER) (test ujpj=741) 7.3 fL 6.5-10.5 NUCLEATED RED BLOOD CELLS (BEAKER) (test 0 /100 WBC 0-0 embq=883) [id number] 02:15:00 Test Item Value Reference Range Comments MAGNESIUM (BEAKER) (test lxse=045) 2.2 mg/dL 1.6-2.6 BASIC METABOLIC [id number] 02:15:00 Test Item Value Reference Range Comments SODIUM (BEAKER) (test 142 meq/L 136-145 sgkz=935) POTASSIUM (BEAKER) (test 4.0 meq/L 3.5-5.1 idde=821) CHLORIDE (BEAKER) (test 110 meq/L 98-107 ahmj=982) CO2 (BEAKER) (test 23 meq/L 22-29 cfkb=724) BLOOD UREA NITROGEN 21 mg/dL 7-21 (BEAKER) (test euzi=465) CREATININE (BEAKER) (test 1.02 mg/dL 0.57-1.25 okel=434) GLUCOSE RANDOM (BEAKER) 102 mg/dL 70-105 (test konk=625) CALCIUM (BEAKER) (test 8.9 mg/dL 8.4-10.2 gxib=861) EGFR (BEAKER) (test 51 mL/min/1.73 sq m ESTIMATED GFR IS NOT bpei=7225) ACCURATE CREATININE CLEARANCE IN PREDICTING GLOMERULAR FILTRATION RATE. ESTIMATED GFR IS NOT APPLICABLE FOR DIALYSIS PATIENTS. [id number] 02:02:00 Test Item Value Reference Range Comments PARTIAL THROMBOPLASTIN TIME (BEAKER) (test 67.1 seconds 22.5-36.0 nmsa=431) CBC W/PLT COUNT & AUTO [id number] 01:59:00 Test Item Value Reference Range Comments WHITE BLOOD CELL COUNT (BEAKER) (test rpwu=988) 5.2 K/ L 4.0-10.0 RED BLOOD CELL COUNT (BEAKER) (test bxsu=878) 3.33 M/ L 4.00-5.00 HEMOGLOBIN (BEAKER) (test aktp=531) 11.4 GM/DL 12.0-15.0 HEMATOCRIT (BEAKER) (test hpaf=413) 33.5 % 36.0-45.0 MEAN CORPUSCULAR VOLUME (BEAKER) (test hznm=798) 101.0 fL 82.0-99.0 MEAN CORPUSCULAR HEMOGLOBIN (BEAKER) (test 34.4 pg 27.0-33.0 ujsm=304) MEAN CORPUSCULAR HEMOGLOBIN CONC (BEAKER) (test 34.1 GM/DL 32.0-36.0 yrpl=275) RED CELL DISTRIBUTION WIDTH (BEAKER) (test 13.5 % 10.3-14.2 kmqg=194) PLATELET COUNT (BEAKER) (test xgte=272) 184 K/CU MM 150-430 MEAN PLATELET VOLUME (BEAKER) (test hcfm=954) 7.0 fL 6.5-10.5 NUCLEATED RED BLOOD CELLS (BEAKER) (test 0 /100 WBC 0-0 hgqy=425) NEUTROPHILS RELATIVE PERCENT (BEAKER) (test 49 % pptm=092) LYMPHOCYTES RELATIVE PERCENT (BEAKER) (test 34 % kiii=871) MONOCYTES RELATIVE PERCENT (BEAKER) (test 10 % pelk=664) EOSINOPHILS RELATIVE PERCENT (BEAKER) (test 7 % acfm=946) BASOPHILS RELATIVE PERCENT (BEAKER) (test 0 % xrwv=967) NEUTROPHILS ABSOLUTE COUNT (BEAKER) (test 2.52 K/ L 1.80-8.00 mkyg=332) LYMPHOCYTES ABSOLUTE COUNT (BEAKER) (test 1.75 K/ L 1.48-4.50 qcxy=306) MONOCYTES ABSOLUTE COUNT (BEAKER) (test 0.54 K/ L 0.00-1.30 wmtw=049) EOSINOPHILS ABSOLUTE COUNT (BEAKER) (test 0.34 K/ L 0.00-0.50 eioh=073) BASOPHILS ABSOLUTE COUNT (BEAKER) (test 0.02 K/ L 0.00-0.20 vzwj=150) 0.00DIGOXIN [id number] 18:00:00 Test Item Value Reference Range Comments DIGOXIN LEVEL (BEAKER) (test hvwd=536) 0.4 ng/mL 0.8-2.0 TSH/FREE T4 IF [id number] 18:00:00 Test Item Value Reference Range Comments THYROID STIMULATING HORMONE (BEAKER) (test 1.47 uIU/mL 0.35-4.94 tlzu=542) [id number] 17:35:00 Test Item Value Reference Range Comments MAGNESIUM (BEAKER) (test cwbz=506) 2.4 mg/dL 1.6-2.6 Fasting lipid panelBASIC METABOLIC [id number] 17:35:00 Test Item Value Reference Range Comments SODIUM (BEAKER) (test 139 meq/L 136-145 aige=994) POTASSIUM (BEAKER) (test 3.9 meq/L 3.5-5.1 adag=513) CHLORIDE (BEAKER) (test 105 meq/L 98-107 nawk=504) CO2 (BEAKER) (test 27 meq/L 22-29 ltny=919) BLOOD UREA NITROGEN 25 mg/dL 7-21 (BEAKER) (test tnhy=379) CREATININE (BEAKER) (test 1.24 mg/dL 0.57-1.25 fgbr=013) GLUCOSE RANDOM (BEAKER) 91 mg/dL 70-105 (test mfmv=629) CALCIUM (BEAKER) (test 9.4 mg/dL 8.4-10.2 fpqf=637) EGFR (BEAKER) (test 41 mL/min/1.73 sq m ESTIMATED GFR IS NOT wcwl=6945) ACCURATE CREATININE CLEARANCE IN PREDICTING GLOMERULAR FILTRATION RATE. ESTIMATED GFR IS NOT APPLICABLE FOR DIALYSIS PATIENTS. Fasting lipid panelLIPID [id number] 17:35:00 Test Item Value Reference Range Comments TRIGLYCERIDES (BEAKER) (test oqbm=566) 81 mg/dL CHOLESTEROL (BEAKER) (test dyls=520) 224 mg/dL HDL CHOLESTEROL (BEAKER) (test hmkl=281) 96 mg/dL LDL CHOLESTEROL CALCULATED (BEAKER) (test 112 mg/dL amxe=396) Triglyceride Reference Range: Low Risk <150 Borderline 150- 199 High Risk 200-499 Very High Risk >=500Cholesterol Reference Range: Low Risk <200 Borderline 200-239 High Risk > 240HDL Cholesterol Reference Range: Low Risk >=60 High Risk <40LDL Cholesterol Reference Range: Optimal <100 Near Optimal 100-129 Borderline 130-159 High 160-189 Very High >=190 Fasting lipid panelHEPATIC FUNCTION [id number] 17:35:00 Test Item Value Reference Range Comments TOTAL PROTEIN (BEAKER) (test cduv=036) 7.7 gm/dL 6.0-8.3 ALBUMIN (BEAKER) (test wpua=1206) 3.9 g/dL 3.5-5.0 BILIRUBIN TOTAL (BEAKER) (test srbz=861) 1.1 mg/dL 0.2-1.2 BILIRUBIN DIRECT (BEAKER) (test jvqo=164) 0.5 mg/dL 0.1-0.5 ALKALINE PHOSPHATASE (BEAKER) (test cgxr=351) 120 U/L 40-150 AST (SGOT) (BEAKER) (test uhel=584) 19 U/L 5-34 ALT (SGPT) (BEAKER) (test hihi=784) 19 U/L 6-55 Fasting lipid [id number] 17:24:00 Test Item Value Reference Range Comments PARTIAL THROMBOPLASTIN TIME (BEAKER) (test 37.0 seconds 22.5-36.0 iokf=581) Prior to initiating heparinPROTHROMBIN [id number] 17:23:00 Test Item Value Reference Range Comments PROTIME (BEAKER) (test scyy=921) 14.3 seconds 11.7-14.7 INR (BEAKER) (test otur=781) 1.1 <=5.9 RECOMMENDED COUMADIN/WARFARIN INR THERAPY RANGESSTANDARD DOSE: 2.0 - 3.0 Includes: PROPHYLAXIS forvenous thrombosis, systemic embolization; TREATMENT for venous thrombosis and/or pulmonary embolus.HIGH RISK: Target INR is 2.5-3.5 for patients with mechanical heart valves.Prior to initiating [id number] 17:23:00 Test Item Value Reference Range Comments PARTIAL THROMBOPLASTIN TIME (BEAKER) (test 36.6 seconds 22.5-36.0 ompe=181) Prior to initiating heparinCBC W/PLT COUNT & AUTO [id number] 17: 20:00 Test Item Value Reference Range Comments WHITE BLOOD CELL COUNT (BEAKER) (test bdhj=530) 6.1 K/ L 4.0-10.0 RED BLOOD CELL COUNT (BEAKER) (test jwvu=441) 3.72 M/ L 4.00-5.00 HEMOGLOBIN (BEAKER) (test stsp=594) 12.4 GM/DL 12.0-15.0 HEMATOCRIT (BEAKER) (test gyfb=349) 37.4 % 36.0-45.0 MEAN CORPUSCULAR VOLUME (BEAKER) (test nlfy=987) 101.0 fL 82.0-99.0 MEAN CORPUSCULAR HEMOGLOBIN (BEAKER) (test 33.5 pg 27.0-33.0 ypjc=775) MEAN CORPUSCULAR HEMOGLOBIN CONC (BEAKER) (test 33.2 GM/DL 32.0-36.0 jgzi=490) RED CELL DISTRIBUTION WIDTH (BEAKER) (test 13.5 % 10.3-14.2 hjxs=384) PLATELET COUNT (BEAKER) (test xcqb=322) 219 K/CU MM 150-430 MEAN PLATELET VOLUME (BEAKER) (test qfrm=109) 7.0 fL 6.5-10.5 NUCLEATED RED BLOOD CELLS (BEAKER) (test 0 /100 WBC 0-0 twtx=645) NEUTROPHILS RELATIVE PERCENT (BEAKER) (test 51 % azil=777) LYMPHOCYTES RELATIVE PERCENT (BEAKER) (test 33 % sbgc=216) MONOCYTES RELATIVE PERCENT (BEAKER) (test 10 % gbby=267) EOSINOPHILS RELATIVE PERCENT (BEAKER) (test 5 % uabf=313) BASOPHILS RELATIVE PERCENT (BEAKER) (test 1 % lwga=511) NEUTROPHILS ABSOLUTE COUNT (BEAKER) (test 3.09 K/ L 1.80-8.00 nrbg=104) LYMPHOCYTES ABSOLUTE COUNT (BEAKER) (test 1.99 K/ L 1.48-4.50 ttvv=336) MONOCYTES ABSOLUTE COUNT (BEAKER) (test 0.62 K/ L 0.00-1.30 rvbi=797) EOSINOPHILS ABSOLUTE COUNT (BEAKER) (test 0.31 K/ L 0.00-0.50 tadt=936) BASOPHILS ABSOLUTE COUNT (BEAKER) (test 0.08 K/ L 0.00-0.20 qkxt=344) PLATELET [id number] 17:16:00 Test Item Value Reference Range Comments PLATELET COUNT (BEAKER) (test jsqt=711) 219 K/CU MM 150-430 BASIC METABOLIC [id number] 04:55:00 Test Item Value Reference Range Comments SODIUM (BEAKER) (test 141 meq/L 136-145 kmqs=947) POTASSIUM (BEAKER) (test 3.3 meq/L 3.5-5.1 jroo=853) CHLORIDE (BEAKER) (test 104 meq/L 98-107 nbam=335) CO2 (BEAKER) (test 28 meq/L 22-29 utwr=020) BLOOD UREA NITROGEN 14 mg/dL 7-21 (BEAKER) (test hwrn=515) CREATININE (BEAKER) (test 0.80 mg/dL 0.57-1.25 faiz=349) GLUCOSE RANDOM (BEAKER) 97 mg/dL 70-105 (test kfof=175) CALCIUM (BEAKER) (test 8.9 mg/dL 8.4-10.2 mxvy=488) EGFR (BEAKER) (test 68 mL/min/1.73 sq m ESTIMATED GFR IS NOT auen=3518) ACCURATE CREATININE CLEARANCE IN PREDICTING GLOMERULAR FILTRATION RATE. ESTIMATED GFR IS NOT APPLICABLE FOR DIALYSIS PATIENTS. CBC (HEMOGRAM ONLY)2016-10-03 04:47:00 Test Item Value Reference Range Comments WHITE BLOOD CELL COUNT (BEAKER) (test wfpt=782) 7.8 K/ L 4.0-10.0 RED BLOOD CELL COUNT (BEAKER) (test zqnq=281) 3.12 M/ L 4.00-5.00 HEMOGLOBIN (BEAKER) (test cipp=802) 11.2 GM/DL 12.0-15.0 HEMATOCRIT (BEAKER) (test isqr=495) 32.5 % 36.0-45.0 MEAN CORPUSCULAR VOLUME (BEAKER) (test pzxy=294) 104.0 fL 82.0-99.0 MEAN CORPUSCULAR HEMOGLOBIN (BEAKER) (test 35.8 pg 27.0-33.0 gato=414) MEAN CORPUSCULAR HEMOGLOBIN CONC (BEAKER) (test 34.4 GM/DL 32.0-36.0 xlla=337) RED CELL DISTRIBUTION WIDTH (BEAKER) (test 12.8 % 10.3-14.2 cpkx=842) PLATELET COUNT (BEAKER) (test shrn=540) 190 K/CU MM 150-430 MEAN PLATELET VOLUME (BEAKER) (test bvsr=617) 7.4 fL 6.5-10.5 NUCLEATED RED BLOOD CELLS (BEAKER) (test 0 /100 WBC 0-0 qwrc=554) 0.00PT/[id number] 04:41:00 Test Item Value Reference Range Comments PROTIME (BEAKER) (test eejg=246) 13.1 seconds 11.7-14.7 INR (BEAKER) (test yylw=679) 1.0 <=5.9 PARTIAL THROMBOPLASTIN TIME (BEAKER) (test 28.1 seconds 22.5-36.0 ujua=109) RECOMMENDED COUMADIN/WARFARIN INR THERAPY RANGESSTANDARD DOSE: 2.0 - 3.0 Includes: PROPHYLAXIS forvenous thrombosis, systemic embolization; TREATMENT for venous thrombosis and/or pulmonary embolus.HIGH RISK: Target INR is 2.5-3.5 for patients with mechanical heart valves.CREATINE KINASE (CK), TOTAL AND [id number] 04:53:00 Test Item Value Reference Range Comments CREATINE KINASE TOTAL (BEAKER) (test jwuk=375) 36 U/L 29-200 CREATINE KINASE-MB (BEAKER) (test jnnu=095) 1.6 ng/mL 0.0-6.6 CREATINE KINASE-MB INDEX (BEAKER) (test bujz=601) 4.4 % Effective 06/14/2014: CK-MB Reference Range ChangeNew: 0.0-6.6 Previous: 0.0- 4.9CK-MB Reference Range:<6.7 Normal6.7-10.0 Borderline>10.0 AbnormalTROPONIN [id number] 04:53:00 Test Item Value Reference Range Comments TROPONIN I (BEAKER) (test pvvf=326) 0.03 ng/mL 0.00-0.03 Effective 06/14/2014: Reference Range [...] acute neurological disease, and persistent tachyarrhythmia.BASIC METABOLIC [id number] 04:46:00 Test Item Value Reference Range Comments SODIUM (BEAKER) (test 139 meq/L 136-145 ravs=671) POTASSIUM (BEAKER) (test 3.7 meq/L 3.5-5.1 foyo=572) CHLORIDE (BEAKER) (test 104 meq/L 98-107 ptgu=926) CO2 (BEAKER) (test 27 meq/L 22-29 rlvb=213) BLOOD UREA NITROGEN 14 mg/dL 7-21 (BEAKER) (test unce=629) CREATININE (BEAKER) (test 0.82 mg/dL 0.57-1.25 mfyj=914) GLUCOSE RANDOM (BEAKER) 102 mg/dL 70-105 (test tsbt=234) CALCIUM (BEAKER) (test 9.1 mg/dL 8.4-10.2 gtye=818) EGFR (BEAKER) (test 66 mL/min/1.73 sq m ESTIMATED GFR IS NOT nvrt=4323) ACCURATE CREATININE CLEARANCE IN PREDICTING GLOMERULAR FILTRATION RATE. ESTIMATED GFR IS NOT APPLICABLE FOR DIALYSIS PATIENTS. PT/[id number] 04:41:00 Test Item Value Reference Range Comments PROTIME (BEAKER) (test fwyf=527) 13.5 seconds 11.7-14.7 INR (BEAKER) (test gcwa=364) 1.0 <=5.9 PARTIAL THROMBOPLASTIN TIME (BEAKER) (test 33.1 seconds 22.5-36.0 tgmi=900) RECOMMENDED COUMADIN/WARFARIN INR THERAPY RANGESSTANDARD DOSE: 2.0 - 3.0 Includes: PROPHYLAXIS forvenous thrombosis, systemic embolization; TREATMENT for venous thrombosis and/or pulmonary embolus.HIGH RISK: Target INR is 2.5-3.5 for patients with mechanical heart valves.CBC (HEMOGRAM ONLY)2016-10-02 04:33:00 Test Item Value Reference Range Comments WHITE BLOOD CELL COUNT (BEAKER) (test wdks=046) 9.4 K/ L 4.0-10.0 RED BLOOD CELL COUNT (BEAKER) (test akyj=135) 3.07 M/ L 4.00-5.00 HEMOGLOBIN (BEAKER) (test wnjn=837) 11.0 GM/DL 12.0-15.0 HEMATOCRIT (BEAKER) (test bmtz=122) 31.9 % 36.0-45.0 MEAN CORPUSCULAR VOLUME (BEAKER) (test njtz=756) 104.0 fL 82.0-99.0 MEAN CORPUSCULAR HEMOGLOBIN (BEAKER) (test 36.0 pg 27.0-33.0 ykwj=760) MEAN CORPUSCULAR HEMOGLOBIN CONC (BEAKER) (test 34.6 GM/DL 32.0-36.0 txuj=030) RED CELL DISTRIBUTION WIDTH (BEAKER) (test 12.7 % 10.3-14.2 gjhc=779) PLATELET COUNT (BEAKER) (test ffgz=201) 205 K/CU MM 150-430 MEAN PLATELET VOLUME (BEAKER) (test xelt=269) 7.3 fL 6.5-10.5 NUCLEATED RED BLOOD CELLS (BEAKER) (test 0 /100 WBC 0-0 hmxc=242) 0.00TSH/FREE T4 IF [id number] 19:30:00 Test Item Value Reference Range Comments THYROID STIMULATING HORMONE (BEAKER) (test 0.43 uIU/mL 0.35-4.94 daex=442) CREATINE KINASE (CK), TOTAL AND [id number] 19:14:00 Test Item Value Reference Range Comments CREATINE KINASE TOTAL (BEAKER) (test gihl=127) 53 U/L 29-200 CREATINE KINASE-MB (BEAKER) (test dvav=912) 2.6 ng/mL 0.0-6.6 CREATINE KINASE-MB INDEX (BEAKER) (test tdjf=456) 4.9 % Effective 06/14/2014: CK-MB Reference Range ChangeNew: 0.0-6.6 Previous: 0.0- 4.9CK-MB Reference Range:<6.7 Normal6.7-10.0 Borderline>10.0 AbnormalTROPONIN [id number] 19:14:00 Test Item Value Reference Range Comments TROPONIN I (BEAKER) (test pgyy=744) 0.01 ng/mL 0.00-0.03 Effective 06/14/2014: Reference Range [...] renalfailure, acidosis, acute neurological disease, and persistent tachyarrhythmia.[id number] 15:20: 00 Test Item Value Reference Range Comments MAGNESIUM (BEAKER) (test whmo=835) 1.9 mg/dL 1.6-2.6 BASIC METABOLIC [id number] 15:20:00 Test Item Value Reference Range Comments SODIUM (BEAKER) (test 141 meq/L 136-145 niik=635) POTASSIUM (BEAKER) (test 3.9 meq/L 3.5-5.1 kawi=481) CHLORIDE (BEAKER) (test 108 meq/L 98-107 fved=393) CO2 (BEAKER) (test 25 meq/L 22-29 hmbi=355) BLOOD UREA NITROGEN 14 mg/dL 7-21 (BEAKER) (test twka=783) CREATININE (BEAKER) (test 0.84 mg/dL 0.57-1.25 lvqe=079) GLUCOSE RANDOM (BEAKER) 130 mg/dL 70-105 (test dgpa=223) CALCIUM (BEAKER) (test 8.8 mg/dL 8.4-10.2 hqbm=947) EGFR (BEAKER) (test 64 mL/min/1.73 sq m ESTIMATED GFR IS NOT unmp=6826) ACCURATE CREATININE CLEARANCE IN PREDICTING GLOMERULAR FILTRATION RATE. ESTIMATED GFR IS NOT APPLICABLE FOR DIALYSIS PATIENTS. CBC (HEMOGRAM ONLY)2016-10-01 14:52:00 Test Item Value Reference Range Comments WHITE BLOOD CELL COUNT (BEAKER) (test rflh=542) 10.1 K/ L 4.0-10.0 RED BLOOD CELL COUNT (BEAKER) (test rnnc=570) 3.40 M/ L 4.00-5.00 HEMOGLOBIN (BEAKER) (test hrdv=282) 11.9 GM/DL 12.0-15.0 HEMATOCRIT (BEAKER) (test losd=083) 34.6 % 36.0-45.0 MEAN CORPUSCULAR VOLUME (BEAKER) (test etog=399) 102.0 fL 82.0-99.0 MEAN CORPUSCULAR HEMOGLOBIN (BEAKER) (test 35.1 pg 27.0-33.0 rzwu=601) MEAN CORPUSCULAR HEMOGLOBIN CONC (BEAKER) (test 34.5 GM/DL 32.0-36.0 oubp=159) RED CELL DISTRIBUTION WIDTH (BEAKER) (test 13.5 % 10.3-14.2 thlu=417) PLATELET COUNT (BEAKER) (test drmo=478) 204 K/CU MM 150-430 MEAN PLATELET VOLUME (BEAKER) (test hpuh=210) 7.4 fL 6.5-10.5 NUCLEATED RED BLOOD CELLS (BEAKER) (test 0 /100 WBC 0-0 lprp=718) 0.00BASIC METABOLIC [id number] 11:00:00 Test Item Value Reference Range Comments SODIUM (BEAKER) (test 142 meq/L 136-145 kxda=749) POTASSIUM (BEAKER) (test 4.5 meq/L 3.5-5.1 ccge=646) CHLORIDE (BEAKER) (test 103 meq/L 98-107 tfso=626) CO2 (BEAKER) (test 28 meq/L 22-29 nrgv=471) BLOOD UREA NITROGEN 28 mg/dL 7-21 (BEAKER) (test frqi=978) CREATININE (BEAKER) (test 1.04 mg/dL 0.57-1.25 iuav=362) GLUCOSE RANDOM (BEAKER) 98 mg/dL 70-105 (test brwf=038) CALCIUM (BEAKER) (test 9.8 mg/dL 8.4-10.2 ccrc=189) EGFR (BEAKER) (test 50 mL/min/1.73 sq m ESTIMATED GFR IS NOT xanq=1717) ACCURATE CREATININE CLEARANCE IN PREDICTING GLOMERULAR FILTRATION RATE. ESTIMATED GFR IS NOT APPLICABLE FOR DIALYSIS PATIENTS. CBC W/PLT COUNT & AUTO [id number] 10:59:00 Test Item Value Reference Range Comments WHITE BLOOD CELL COUNT (BEAKER) (test fmtj=763) 7.0 K/ L 4.0-10.0 RED BLOOD CELL COUNT (BEAKER) (test sjgb=555) 3.77 M/ L 4.00-5.00 HEMOGLOBIN (BEAKER) (test ytso=236) 13.2 GM/DL 12.0-15.0 HEMATOCRIT (BEAKER) (test nrja=537) 38.5 % 36.0-45.0 MEAN CORPUSCULAR VOLUME (BEAKER) (test uckk=719) 102.0 fL 82.0-99.0 MEAN CORPUSCULAR HEMOGLOBIN (BEAKER) (test 34.9 pg 27.0-33.0 uztt=991) MEAN CORPUSCULAR HEMOGLOBIN CONC (BEAKER) (test 34.2 GM/DL 32.0-36.0 pdpc=061) RED CELL DISTRIBUTION WIDTH (BEAKER) (test 13.6 % 10.3-14.2 hlel=525) PLATELET COUNT (BEAKER) (test cagh=330) 233 K/CU MM 150-430 MEAN PLATELET VOLUME (BEAKER) (test hldl=454) 7.3 fL 6.5-10.5 NUCLEATED RED BLOOD CELLS (BEAKER) (test 0 /100 WBC 0-0 wper=894) NEUTROPHILS RELATIVE PERCENT (BEAKER) (test 60 % erke=747) LYMPHOCYTES RELATIVE PERCENT (BEAKER) (test 27 % jvrc=470) MONOCYTES RELATIVE PERCENT (BEAKER) (test 9 % osmh=788) EOSINOPHILS RELATIVE PERCENT (BEAKER) (test 3 % eukj=776) BASOPHILS RELATIVE PERCENT (BEAKER) (test 1 % rcnt=862) NEUTROPHILS ABSOLUTE COUNT (BEAKER) (test 4.20 K/ L 1.80-8.00 tksd=091) LYMPHOCYTES ABSOLUTE COUNT (BEAKER) (test 1.92 K/ L 1.48-4.50 pbik=026) MONOCYTES ABSOLUTE COUNT (BEAKER) (test 0.60 K/ L 0.00-1.30 smmx=546) EOSINOPHILS ABSOLUTE COUNT (BEAKER) (test 0.23 K/ L 0.00-0.50 muvl=560) BASOPHILS ABSOLUTE COUNT (BEAKER) (test 0.07 K/ L 0.00-0.20 hdjt=783) 0.00PT/[id number] 10:58:00 Test Item Value Reference Range Comments PROTIME (BEAKER) (test cbog=246) 12.7 seconds 11.7-14.7 INR (BEAKER) (test xbzu=207) 1.0 <=5.9 PARTIAL THROMBOPLASTIN TIME (BEAKER) (test 29.7 seconds 22.5-36.0 idvn=766) RECOMMENDED COUMADIN/WARFARIN INR THERAPY RANGESSTANDARD DOSE: 2.0 - 3.0 Includes: PROPHYLAXIS forvenous thrombosis, systemic embolization; TREATMENT for venous thrombosis and/or pulmonary embolus.HIGH RISK: Target INR is 2.5-3.5 for patients with mechanical heart valves.
--- OUTSIDE RECORDS SUMMARY | 2018-05-12 12:18 | XMS REPORT | Clinical Summary ---
:1930 Author Organization [facility] Address [address] [place] [address] Phone Care Team Providers Name Role Phone [...] Ventricular tachycardia (HCC) 01/06/2017 VT (ventricular tachycardia) ([facility]) 01/06/2017 Stenosis of right carotid artery 10/01/2016 [...] INFLUENZA VACCINE 04/27/2018 Implants Implanted Type Area Rn Family Practice Device Expiration Model / Identifier Date Serial / Lot Lead Attain Performa 78cm [id number] - [id number] Cardiovascular N/A: [employer] :CARD 10/03/2018 [id number] / Implanted: Qty: 1 on 01/07/2017 by Satya Perales MD Chest RHY: DISEASE [id number] / MGT Ld Endocardial Df4 Act 55 [id number] - [id number] Defibrillators N/A: [employer]:CARD 10/10/2018 [id number] / Implanted: Qty: 1 on 01/07/2017 by Satya Perales MD Chest RHY: DISEASE [id number] / MGT Dev [employer] 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-D Surescn [id number] - [id number] Defibrillators N/A: [employer]:CARD 04/24/2018 [id number] / Implanted: Qty: 1 on 01/07/2017 by Satya Perales MD Chest RHY:PACING SYS [id number] / Grft Hemshld Dbl Silvio 0.3x3.0in [id number] - [id number] Graft/Patch Right: GETINGE 04/26/2021 [id number] / Implanted: Qty: 1 on 10/01/2016 by Miguelangel Stack MD Neck IND:MAQUET:CV [id number] / [id number] Lead Pacemkr Capsur Novus 45x1 [id number] - [id number] Pacemaker Lead N/A: [employer]:CARD 09/23/2018 [id number] / Implanted: Qty: 1 on 01/07/2017 by Satya Perales MD Chest RHY: DISEASE [id number] / MGT Results Not on fileafter 05/11/2017
--- NOTE | 2018-05-12 13:22 | RAD REPORT ---
[facility]12 pm CLINICAL HISTORY: Cough COMPARISON: 2016 FINDINGS: Mild bilateral pulmonary opacities are present. The heart is mildly enlarged. Pacemaker le ads are in place. Chronic elevation left hemidiaphragm is seen. IMPRESSION: Mild CHF
[2018-05-12 13:30] LABS: Absolute Lymphocytes (CBC) 5.5 K/uL (0.7-4.9); Absolute Monocytes 4.9 K/uL (0.1-1.3); Absolute Neutrophil 5.6 K/uL (1.8-8.0); Basophils % 8.5 % (0-1.3); Hematocrit 28.8 % (36.0-45.0); Lymphocytes % 31.3 % (15.3-44.8); MCH 29.6 pg (27.0-35.0); MPV 8.4 fL (7.6-11.3); Monocytes % 27.6 % (3.3-12.3); RBC Red Blood Cell Count 3.17 M/uL (3.86-4.86)
[2018-05-12 13:37] LABS: Protime INR 1.44
[2018-05-12 13:52] LABS: ALT/SGPT 17 U/L (12-78); AST/SGOT 27 U/L (15-37); Albumin 3.7 g/dL (3.4-5.0); Alkaline Phosphatase 116 U/L (45-117); BUN Blood Urea Nitrogen 19 mg/dL (7-18); Bicarbonate 23 mmol/L (21-32); Bilirubin Direct 0.1 mg/dL (0-0.2); Bilirubin Total 0.3 mg/dL (0.2-1.0); Glucose Level 89 mg/dL (74-106); Lipase 138 U/L (73-393); Magnesium 2.7 mg/dL (1.8-2.4); NT PRO-BNP 9951 pg/mL (<450); Potassium 4.7 mmol/L (3.5-5.1); Sodium Level 138 mmol/L (136-145); Troponin (Emerg Dept Use Only) < 0.02 ng/mL (0.0-0.045)
[2018-05-12] MEDS ORDERED: METHYLPREDNISOLONE 125 MG INJ ONE (14:08)
[2018-05-12] MEDS ORDERED: FUROSEMIDE 20 MG/ 2ML VIAL ONE (14:08)
[2018-05-12] MEDS ORDERED: AZITHROMYCIN 250 MG TAB ONE (14:08)
[2018-05-12] MEDS ORDERED: IPRATROPIUM BROM 0.5MG/2.5ML ONE (14:09)
[2018-05-12] MEDS ORDERED: FAMOTIDINE 20 MG/2 ML VIAL IV ONE (14:09)
[2018-05-12] MEDS ORDERED: CEFTRIAXONE/SWI 1gm 1 GM/10 ML SYR ONE (14:09)
[2018-05-12] MEDS ORDERED: LEVALBUTEROL 1.25 MG/3 ML NEB ONE (14:09)
--- NOTE | 2018-05-12 14:23 | ER ---
Nurse's Notes [facility] Name: Nikky Ocampo Age: 88 yrs Sex: Female : 1930 Arrival Date: 05/12/2018 Time: 12:16 Bed 15 Private MD: Hernan Richmond E Diagnosis: Dyspnea;Elevated white blood cell count;Unspecified combined systolic (congestive) and diastolic (congestive) heart failure;Chronic obstructive pulmonary disease with (acute) exacerbation Presentation: 05/12 12:23 Presenting complaint: Patient states: productive cough, thick alvarez, congestion since sv Tu. Pt went to urgent care today and they sent her over here d/t O2 sat of 93%. Transition of care: patient was not received from another setting of care. Onset of symptoms was May 05, 2018. Risk Assessment: Do you want to hurt yourself or someone else? Patient reports no desire to harm self or others. Care prior to arrival: None. 12:23 Method Of Arrival: Ambulatory sv 12:23 Acuity: TASIA 3 sv 13:40 Initial Sepsis Screen: Does the patient meet any 2 criteria? No. Patient's initial sv sepsis screen is negative. Does the patient have a suspected source of infection? Yes: Productive cough/pneumonia. Triage Assessment: 12:23 General: Appears in no apparent distress. uncomfortable, slender, Behavior is calm, sv cooperative, appropriate for age. Pain: Denies pain. EENT: Reports pain in left aspect of posterior pharynx and right aspect of posterior pharynx. Neuro: Level of Consciousness is awake, alert, obeys commands, Oriented to person, place, time, situation, Moves all extremities. Full function Gait is steady, with her cane. Speech is normal. Cardiovascular: Patient's skin is warm and dry. Pulses are palpable in right radial artery and left radial artery. Respiratory: Reports cough that is productive, persistent alvarez in color pain with cough Respiratory effort is even, unlabored, Respiratory pattern is regular, symmetrical. GI: No signs and/or symptoms were reported involving the gastrointestinal system. : No signs and/or symptoms were reported regarding the genitourinary system. Derm: Skin is normal. Musculoskeletal: No signs and/or symptoms reported regarding the musculoskeletal system. Historical: - Allergies: 12:39 Codeine; sv - Home Meds: 12:39 Bactrim DS 800-160 mg Oral tab 1 tab q12 hours x 10 days [Active]; Allergy Medicine sv oral oral [Active]; cranberry oral oral [Active]; Digoxin Oral [Active]; Eliquis oral oral [Active]; fluticasone nasal nasal [Active]; gabapentin Oral [Active]; levothyroxine 50 mcg tab 1 tab once daily [Active]; metoprolol succinate oral oral [Active]; nortriptyline 75 mg Oral cap 1 cap once daily [Active]; preser vision [Active]; Restasis ophthalmic ophthalmic [Active]; Tasigna 150 mg Oral cap [Active]; tramadol 50 mg Oral tab q8 hr PRN [Active]; - PMHx: 12:39 Chronic leukemia; Hypertension; Pacemaker; CHF; colon cancer; sv - PSHx: 12:39 colon resection; Hysterectomy; back; right carotid; sv - Immunization history:: Adult Immunizations up to date. - Social history:: Smoking status: Patient/guardian denies using tobacco. - Ebola Screening: : No symptoms or risks identified at this time. Screenin:55 Abuse screen: Denies threats or abuse. Denies injuries from another. Nutritional sv screening: No deficits noted. Tuberculosis screening: No symptoms or risk factors identified. Fall Risk None identified. Assessment: 13:40 Reassessment: Patient appears in no apparent distress at this time. No changes from sv previously documented assessment. Patient and/or family updated on plan of care and expected duration. Pain level reassessed. Patient is alert, oriented x 3, equal unlabored respirations, skin warm/dry/pink. 14:30 Reassessment: Patient appears in no apparent distress at this time. Patient and/or ph family updated on plan of care and expected duration. Pain level reassessed. Patient is alert, oriented x 3, equal unlabored respirations, skin warm/dry/pink. General: Appears in no apparent distress. comfortable, slender, well groomed, Behavior is calm, cooperative, appropriate for age. Pain: Complains of pain in right aspect of posterior pharynx and left aspect of posterior pharynx. Neuro: Level of Consciousness is awake, alert, obeys commands, Oriented to person, place, time, situation. Cardiovascular: Capillary refill < 3 seconds in bilateral fingers Patient's skin is warm and dry. Respiratory: Reports cough that is productive, Airway is patent Respiratory effort is even, unlabored, Respiratory pattern is regular, symmetrical, Breath sounds are diminished in left posterior lower lobe, right posterior middle lobe and right posterior lower lobe. GI: No signs and/or symptoms were reported involving the gastrointestinal system. Derm: Skin is intact, is fragile, is thin, Skin is pink, warm \T\ dry. Musculoskeletal: Circulation, motion, and sensation intact. Range of motion: intact in all extremities. 15:45 Reassessment: Patient appears in no apparent distress at this time. Patient and/or ph family updated on plan of care and expected duration. Pain level reassessed. Patient is alert, oriented x 3, equal unlabored respirations, skin warm/dry/pink. Pt up to bedside commode, urine sample obtained and supplied w/ additional brief, now resting quietly w/ family at bedside, awaiting room assignment. 16:53 Reassessment: Patient appears in no apparent distress at this time. Patient and/or ph family updated on plan of care and expected duration. Pain level reassessed. Patient is alert, oriented x 3, equal unlabored respirations, skin warm/dry/pink. Report called to Wilner WILBURN, pt taken to room via wheelchair by sales service technician. Vital Signs: 12:39 BP 160 / 69; Pulse 82; Resp 18; Temp 97.7; Pulse Ox 98% ; Weight 57.61 kg; Height 5 ft. sv 5 in. (165.10 cm); 13:19 Resp 19; Pulse Ox 98% on R/A; sv 13:37 BP 143 / 68; Pulse 63; Resp 19; Pulse Ox 100% on R/A; sv 14:30 BP 147 / 64; Pulse 71; Resp 20; Pulse Ox 100% on R/A; ph 15:30 BP 146 / 62; Pulse 68; Resp 20; Pulse Ox 100% on R/A; ph 16:39 BP 147 / 50; Pulse 72; Resp 18; Temp 97.8; Pulse Ox 98% on R/A; ph 12:39 Body Mass Index 21.13 (57.61 kg, 165.10 cm) sv ED Course: 12:16 Patient arrived in ED. as 12:17 Hernan Richmond MD is Private Physician. as 12:25 Mahesh Macias MD is Attending Physician. zeynep 12:33 Reena Lujan, RN is Primary Nurse. sv 12:35 Triage completed. sv 12:40 Arm band placed on. sv 12:55 Patient has correct armband on for positive identification. Placed in gown. Bed in low sv position. Call light in reach. Adult w/ patient. radiation monitor on. Pulse ox on. NIBP on. Door closed. Warm blanket given. Head of bed elevated. 12:55 Initial lab(s) drawn, by me, sent to lab. First set of blood cultures drawn by me. sv Inserted saline lock: 22 gauge in left antecubital area, using aseptic technique. ,using aseptic technique. diffusics Blood collected. Flushed left antecubital with 5 ml normal saline. 13:08 X-ray completed. Portable x-ray completed in exam room. Patient tolerated procedure ml well. 13:10 XRAY Chest (1 view) In Process Unspecified. EDMS 13:10 Second set of blood cultures drawn by me. sv 13:39 Awaiting ED provider evaluation. sv 13:55 Notified ED physician of a critical lab result(s). platelets [id number]. hb 14:00 Manual Differential Sent. sv 14:00 Add On-Lab Sent. sv 14:21 Jersey Acosta MD is Hospitalizing Provider. zeynep 15:20 Primary Nurse role handed off by Reena Lujan, AKILA sv 15:20 Roberta Sandoval, RN is Primary Nurse. sv 16:08 No provider procedures requiring assistance completed. Patient admitted, IV remains in ph place. Administered Medications: 13:45 Not Given (Duplicate Order): NS 0.9% 1000 ml IV at 75 ml/hr continuous zeynep 14:19 Drug: Lasix 20 mg Route: IVP; Site: left antecubital; sv 15:57 Follow up: Response: No adverse reaction ph 14:21 Drug: Rocephin - (cefTRIAXone) 1 grams Route: IVPB; Infused Over: 30 mins; Site: left sv antecubital; 14:45 Follow up: Response: No adverse reaction; IV Status: Completed infusion ph 14:21 Drug: Zithromax 500 mg Route: PO; sv 15:58 Follow up: Response: No adverse reaction ph 14:21 Drug: Xopenex 2.5 mg Route: Inhalation; sv 15:58 Follow up: Response: No adverse reaction ph 14:21 Drug: AtroVENT Aerosol 0.5 mg Route: Inhalation; sv 15:57 Follow up: Response: No adverse reaction ph 14:23 Drug: SOLU-Medrol 2 mg/kg Route: IVP; Site: left antecubital; sv 15:59 Follow up: Response: No adverse reaction ph 14:30 Drug: Pepcid 20 mg Route: IVP; Site: left antecubital; ph 15:57 Follow up: Response: No adverse reaction ph Outcome: 14:22 Decision to Hospitalize by Provider. zeynep 16:54 Admitted to Tele accompanied by tech, family with patient, via stretcher, room 210, ph with chart, Report called to Wilner WILBURN 16:54 Condition: stable 16:55 Patient left the ED. ph Signatures: Dispatcher [employer] Reena Tadeo RN RN sv Anderson, Corey, MD MD cha Martinez, Rebecca Mosley Patricia, RN RN Eulalia Gandhi RN RN hb Corrections: (The following items were deleted from the chart) 16:08 14:30 Respiratory: Reports cough that is productive, Airway is patent Respiratory ph effort is even, unlabored, Respiratory pattern is regular, symmetrical, ph
--- NOTE | 2018-05-12 14:23 | EDPHYS ---
Physician Documentation [facility] Name: Nikky Ocampo Age: 88 yrs Sex: Female : 1930 Arrival Date: 05/12/2018 Time: 12:16 Bed 15 Private MD: Hernan Richmond E ED Physician Mahesh Macias HPI: 05/12 13:52 This 88 yrs old Female presents to ER via Ambulatory with complaints of zeynep Congestion, Cough. 13:52 The patient or guardian reports cough, difficulty breathing. Onset: The zeynep symptoms/episode began/occurred 14 day(s) ago. Severity of symptoms: At their worst the symptoms were mild, in the emergency department the symptoms are unchanged. Modifying factors: The symptoms are alleviated by cool environment, inhaler, the symptoms are aggravated by exertion, talking. Associated signs and symptoms: The patient has no apparent associated signs or symptoms. The patient has experienced similar episodes in the past, several times. Historical: - Allergies: 12:39 Codeine; sv - Home Meds: 12:39 Bactrim DS 800-160 mg Oral tab 1 tab q12 hours x 10 days [Active]; Allergy Medicine sv oral oral [Active]; cranberry oral oral [Active]; Digoxin Oral [Active]; Eliquis oral oral [Active]; fluticasone nasal nasal [Active]; gabapentin Oral [Active]; levothyroxine 50 mcg tab 1 tab once daily [Active]; metoprolol succinate oral oral [Active]; nortriptyline 75 mg Oral cap 1 cap once daily [Active]; preser vision [Active]; Restasis ophthalmic ophthalmic [Active]; Tasigna 150 mg Oral cap [Active]; tramadol 50 mg Oral tab q8 hr PRN [Active]; - PMHx: 12:39 Chronic leukemia; Hypertension; Pacemaker; CHF; colon cancer; sv - PSHx: 12:39 colon resection; Hysterectomy; back; right carotid; sv - Immunization history:: Adult Immunizations up to date. - Social history:: Smoking status: Patient/guardian denies using tobacco. - Ebola Screening: : No symptoms or risks identified at this time. ROS: 13:57 Constitutional: Negative for fever, chills, and weight loss, Eyes: Negative for injury, zeynep pain, redness, and discharge, ENT: Negative for injury, pain, and discharge, Neck: Negative for injury, pain, and swelling, Cardiovascular: Negative for chest pain, palpitations, and edema, Abdomen/GI: Negative for abdominal pain, nausea, vomiting, diarrhea, and constipation, Back: Negative for injury and pain, : Negative for injury, bleeding, discharge, and swelling, MS/Extremity: Negative for injury and deformity, Skin: Negative for injury, rash, and discoloration, Neuro: Negative for headache, weakness, numbness, tingling, and seizure, Psych: Negative for depression, anxiety, suicide ideation, homicidal ideation, and hallucinations, Allergy/Immunology: Negative for hives, rash, and allergies, Endocrine: Negative for neck swelling, polydipsia, polyuria, polyphagia, and marked weight changes, Hematologic/Lymphatic: Negative for swollen nodes, abnormal bleeding, and unusual bruising. 13:57 Respiratory: Positive for cough, dyspnea on exertion, orthopnea, shortness of breath, at rest. Exam: 13:57 Constitutional: This is a well developed, well nourished patient who is awake, alert, zeynep and in no acute distress. Head/Face: Normocephalic, atraumatic. Eyes: Pupils equal round and reactive to light, extra-ocular motions intact. Lids and lashes normal. Conjunctiva and sclera are non-icteric and not injected. Cornea within normal limits. Periorbital areas with no swelling, redness, or edema. ENT: Nares patent. No nasal discharge, no septal abnormalities noted. Tympanic membranes are normal and external auditory canals are clear. Oropharynx with no redness, swelling, or masses, exudates, or evidence of obstruction, uvula midline. Mucous membranes moist. Neck: Trachea midline, no thyromegaly or masses palpated, and no cervical lymphadenopathy. Supple, full range of motion without nuchal rigidity, or vertebral point tenderness. No Meningismus. Chest/axilla: Normal chest wall appearance and motion. Nontender with no deformity. No lesions are appreciated. Respiratory: Lungs have equal breath sounds bilaterally, clear to auscultation and percussion. No rales, rhonchi or wheezes noted. No increased work of breathing, no retractions or nasal flaring. Abdomen/GI: Soft, non-tender, with normal bowel sounds. No distension or tympany. No guarding or rebound. No evidence of tenderness throughout. Back: No spinal tenderness. No costovertebral tenderness. Full range of motion. Skin: Warm, dry with normal turgor. Normal color with no rashes, no lesions, and no evidence of cellulitis. MS/ Extremity: Pulses equal, no cyanosis. Neurovascular intact. Full, normal range of motion. Neuro: Awake and alert, GCS 15, oriented to person, place, time, and situation. Cranial nerves II-XII grossly intact. Motor strength 5/5 in all extremities. Sensory grossly intact. Cerebellar exam normal. Normal gait. Psych: Awake, alert, with orientation to person, place and time. Behavior, mood, and affect are within normal limits. 13:57 Cardiovascular: Rate: Rhythm: JVD: 13:57 Respiratory: the patient does not display signs of respiratory distress, Respirations: normal, no acute changes, Breath sounds: decreased breath sounds, rhonchi, wheezing: expiratory Vital Signs: 12:39 BP 160 / 69; Pulse 82; Resp 18; Temp 97.7; Pulse Ox 98% ; Weight 57.61 kg; Height 5 ft. sv 5 in. (165.10 cm); 13:19 Resp 19; Pulse Ox 98% on R/A; sv 13:37 BP 143 / 68; Pulse 63; Resp 19; Pulse Ox 100% on R/A; sv 14:30 BP 147 / 64; Pulse 71; Resp 20; Pulse Ox 100% on R/A; ph 15:30 BP 146 / 62; Pulse 68; Resp 20; Pulse Ox 100% on R/A; ph 16:39 BP 147 / 50; Pulse 72; Resp 18; Temp 97.8; Pulse Ox 98% on R/A; ph 12:39 Body Mass Index 21.13 (57.61 kg, 165.10 cm) sv MDM: 12:25 Patient medically screened. [facility] 14:01 Data reviewed: vital signs, nurses notes, lab test result(s), EKG, radiologic studies, [facility] plain films. 05/12 12:36 Order name: Basic Metabolic Panel [facility] 05/12 12:36 Order name: CBC with Diff [facility] 05/12 12:36 Order name: LFT's [facility] 05/12 12:36 Order name: Magnesium [facility] 05/12 12:36 Order name: NT PRO-BNP [facility] 05/12 12:36 Order name: PT-INR; Complete Time: 14:18 [facility] 05/12 12:36 Order name: Troponin (emerg Dept Use Only) [facility] 05/12 12:36 Order name: Lipase [facility] 05/12 12:36 Order name: Blood Culture Adult (2) [facility] 05/12 12:36 Order name: Urine Culture [facility] 05/12 12:36 Order name: Influenza Screen (a \T\ B) [facility] 05/12 12:36 Order name: Procalcitonin; Complete Time: 14:18 [facility] 05/12 13:10 Order name: Lactate; Complete Time: 13:51 05/12 13:48 Order name: Add On-Lab bd 05/12 12:36 Order name: XRAY Chest (1 view); Complete Time: 13:44 [facility] 05/12 12:36 Order name: EKG; Complete Time: 12:37 [facility] 05/12 13:54 Order name: Digoxin Level [facility] 05/12 13:54 Order name: Thyroid Stimulating Hormone [facility] 05/12 13:56 Order name: Manual Differential [facility] 05/12 14:27 Order name: Echo with Doppler [facility] 05/12 15:58 Order name: Urine Dipstick--Ancillary (enter results) 05/12 16:32 Order name: Urine Dipstick-Ancillary [facility] 05/12 12:36 Order name: Cardiac monitoring; Complete Time: 13:21 [facility] 05/12 12:36 Order name: EKG - Nurse/Tech; Complete Time: 13:21 [facility] 05/12 12:36 Order name: IV Saline Lock; Complete Time: 13:21 [facility] 05/12 12:36 Order name: Labs collected and sent; Complete Time: 13:22 [facility] 05/12 12:36 Order name: O2 Per Protocol; Complete Time: 13:22 [facility] 05/12 12:36 Order name: O2 Sat Monitoring; Complete Time: 13:22 [facility] 05/12 12:36 Order name: Urine Dipstick-Ancillary (obtain specimen); Complete Time: 16:00 [facility] 05/12 14:27 Order name: CONS Physician Consult [facility] 05/12 14:27 Order name: CONS Physician Consult EDMO Administered Medications: 13:45 Not Given (Duplicate Order): NS 0.9% 1000 ml IV at 75 ml/hr continuous [facility] 14:19 Drug: Lasix 20 mg Route: IVP; Site: left antecubital; sv 15:57 Follow up: Response: No adverse reaction ph 14:21 Drug: Rocephin - (cefTRIAXone) 1 grams Route: IVPB; Infused Over: 30 mins; Site: left sv antecubital; 14:45 Follow up: Response: No adverse reaction; IV Status: Completed infusion ph 14:21 Drug: Zithromax 500 mg Route: PO; sv 15:58 Follow up: Response: No adverse reaction ph 14:21 Drug: Xopenex 2.5 mg Route: Inhalation; sv 15:58 Follow up: Response: No adverse reaction ph 14:21 Drug: AtroVENT Aerosol 0.5 mg Route: Inhalation; sv 15:57 Follow up: Response: No adverse reaction ph 14:23 Drug: SOLU-Medrol 2 mg/kg Route: IVP; Site: left antecubital; sv 15:59 Follow up: Response: No adverse reaction ph 14:30 Drug: Pepcid 20 mg Route: IVP; Site: left antecubital; ph 15:57 Follow up: Response: No adverse reaction ph Disposition: 05/12/18 14:22 Hospitalization ordered by Jersey Acosta for Inpatient Admission. Preliminary diagnosis are Dyspnea, Elevated white blood cell count, Unspecified combined systolic (congestive) and diastolic (congestive) heart failure, Chronic obstructive pulmonary disease with (acute) exacerbation. - Bed requested for Telemetry/MedSurg (Inpatient). - Status is Inpatient Admission. ph - Condition is Fair. - Problem is new. - Symptoms have improved. UTI on Admission? No Signatures: Dispatcher [employer] EDMS Chantell Woody Stephanie, RN RN sv Anderson, Corey, MD MD cha Hall, Patricia, RN RN ph Corrections: (The following items were deleted from the chart) 16:31 14:22 Hospitalization Ordered by Jersey Acosta MD for Inpatient Admission. Preliminary bd diagnosis is Dyspnea; Elevated white blood cell count; Unspecified combined systolic (congestive) and diastolic (congestive) heart failure; Chronic obstructive pulmonary disease with (acute) exacerbation. Bed requested for Telemetry/MedSurg (Inpatient). Status is Inpatient Admission. Condition is Fair. Problem is new. Symptoms have improved. UTI on Admission? No. zeynep 16:55 16:31 05/12/2018 14:22 Hospitalization Ordered by Jersey Acosta MD for Inpatient ph Admission. Preliminary diagnosis is Dyspnea; Elevated white blood cell count; Unspecified combined systolic (congestive) and diastolic (congestive) heart failure; Chronic obstructive pulmonary disease with (acute) exacerbation. Bed requested for Telemetry/MedSurg (Inpatient). Status is Inpatient Admission. Condition is Fair. Problem is new. Symptoms have improved. UTI on Admission? No. bd
[2018-05-12 14:52] LABS: Platelet Estimate INCR
[2018-05-12 14:53] LABS: Blood Morphology Comment NOT SEEN (NOT SEEN); Platelets, Giant PRESENT
[2018-05-12 16:32] LABS: Urine Blood NEGATIVE (NEG); Urine Glucose NEGATIVE (NEG); Urine Protein NEGATIVE (NEG)
[2018-05-12 17:47] VITALS: BMI 20.6
[2018-05-12] MEDS ORDERED: INFLUENZA VACCINE (for 3y+) 0.5 ML DOSE IMVAC ONE (18:00)
--- NOTE | 2018-05-12 19:31 | P.HP ---
Certification for Inpatient With expected LOS: >2 Midnights Practitioner: I am a practitioner with admitting privileges, knowledge of patient current condition, hospital course, and medical plan of care. Services: Services provided to patient in accordance with Admission requirements found in Title 42 Section 412.3 of the Code of Federal Regulations Patient History Date of Service: 05/12/18 Reason for admission: Cough, congestion, spitting up History of Present Illness: This is a 88-year-old female history of CML, CKD stage 4, anemia of chronic disease, AFib with pacemaker placement, CHF hypertension and hypothyroidism who comes in with complaints of cough, congestion, spitting up for the past 1 and half weeks that has been progressively getting worse. She states that she has been spitting up a reddish brownish substance for the past 1 and half weeks but denies any fevers chills shortness of breath, chest pain, any recent travel any headaches or any dizziness. She states that she was in a hospital but a month ago for platelets being high, and ever since discharge she has been having this cough that refuses to go away. And for the past 1 and half weeks, this has been getting progressively worse. She does follow up with Dr. Jolley, oncology for her CML and is currently on treatment. Allergies codeine [Codeine] Adverse Reaction (Verified 02/01/12 09:06) vomiting Home Medications: Levothyroxine [Synthroid*] 50 mcg PO DAILY 09/06/13 Apixaban [Eliquis *] 2.5 mg PO BID 04/14/18 Digoxin [Lanoxin*] 125 mcg PO DAILY 04/14/18 Metoprolol Succinate [Toprol Xl*] 25 mg PO BID 04/14/18 Tramadol HCl [Ultram] 50 mg PO DAILY PRN 04/14/18 Bosutinib [Bosulif] 3 tab PO BREAKFAST 05/12/18 Cranberry 1,000 mg PO DAILY 05/12/18 Diphenhydramine HCl [Allergy Relief] 25 mg PO DAILY 05/12/18 Gabapentin [Neurontin] 2 cap PO QID 05/12/18 Nilotinib HCl [Tasigna] 150 mg PO QID 05/12/18 Ranitidine HCl [Zantac] 150 mg PO DAILY 05/12/18 Vit C/E/Zn/Coppr/Lutein/Zeaxan [Preservision Areds 2 Softgel] 1 each PO DAILY - Past Medical/Surgical History Diabetic: No -: Congestive Heart Failure, CAD -: GERD -: Edema -: Varicose Veins -: Peripheral Neuropathy -: CML (chronic myeloid leukemia) -: Vitamin D Deficiency -: Hypothyroidism -: Insomnia -: Renal Insufficiency Syndrome -: Anemia -: Angiodysplasia of intestine with hemorrhage -: Hysterectomy -: Back surgery x2 -: Debbie -: bladder sx. -: carotid sx - Family History Mother -: Cancer, Liver disease Father -: Cancer, Liver disease Notes: THROAT CANCER - Social History Smoking Status: Former smoker Alcohol use: No CD- Drugs: No Caffeine use: Yes Place of Residence: Home Review of Systems General: Unremarkable Eyes: Unremarkable ENT: Unremarkable Respiratory: Cough, Sputum, As per HPI Cardiovascular: Unremarkable Gastrointestinal: Unremarkable Genitourinary: Unremarkable Integumentary: Unremarkable Neurological: Unremarkable Lymphatics: Unremarkable Physical Examination - Vital Signs Temperature: 97.8 F Blood Pressure: 147/50 Pulse: 72 Respirations: 18 Pulse Ox (%): 90 - Studies Laboratory Data (last 24 hrs) 05/12/18 12:55: PT 17.1 H, INR 1.44 05/12/18 12:55: WBC 17.7 H, Hgb 9.4 L, Hct 28.8 L, Plt Count 1676 H* 05/12/18 12:55: Sodium 138, Potassium 4.7, BUN 19 H, Creatinine 1.10, Glucose 89 , Magnesium 2.7 H D, Total Bilirubin 0.3, AST 27, ALT 17, Alkaline Phosphatase 116, Lipase 138 Microbiology Data (last 24 hrs): 05/12/18 12:55 Nasopharnyx Influenza Type A Antigen Screen - Final 05/12/18 12:55 Nasopharnyx Influenza Type B Antigen Screen - Final Assessment and Plan - Problems (Diagnosis) (1) Cough Current Visit: Yes Status: Acute Plan: Chest x-ray with mild COPD changes on admission. Will continue IV antibiotics. Continue oral steroids. may need to consider testing for TB, though cxr negative as patient has CML and can be high risk for opportunistic infections. (2) Congestive heart failure Onset Date: 11/01/15 Current Visit: No Status: Active Plan: Was given IV Lasix in the ER. Will continue her home dosage of Lasix. Continue her home medications of beta lyndsey and GENESIS-inhibitor. No evidence of volume overload on exam. (3) CKD (chronic kidney disease) stage 4, GFR 15-29 ml/min Onset Date: 11/01/15 Current Visit: No Status: Acute Plan: Stable. Monitor (4) Myelogenous leukemia, chronic Onset Date: 11/01/15 Current Visit: No Status: Acute Plan: This is dr. Jolley's patient. She is currently undergoing treatment. Consult oncology (5) Thrombocytosis Onset Date: 04/14/18 Current Visit: No Status: Acute Plan: Likely secondary to C. M. L. Consult oncology and continue current treatment. - Advance Directives Does patient have a Living Will: No Does patient have a Durable POA for Healthcare: No
[2018-05-12] MEDS ORDERED: NILOTINIB HCL 150 MG PO SCH (21:00)
[2018-05-12] MEDS: METOPROLOL XL 25 MG TAB PO SCH ×2 (21:00→23:53)
[2018-05-12] MEDS: GABAPENTIN 300 MG CAP PO SCH (21:00)
[2018-05-12] MEDS: APIXABAN 2.5 MG TABLET PO SCH (21:26)
[2018-05-12] MEDS: TRAMADOL HCL 50 MG TAB PO PRN (21:33)
[2018-05-13] MEDS: LEVOTHYROXINE SOD 0.05 MG TABLET PO SCH (05:33)
--- NOTE | 2018-05-13 07:54 | EKG ---
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
[2018-05-13] MEDS: BOSUTINIB PO SCH (08:00)
[2018-05-13] MEDS ORDERED: PROMETHAZINE-DM 5 ML OSYR PO PRN (08:46)
--- NOTE | 2018-05-13 08:48 | P.CNS ---
Date of Consult: 05/13/18 Reason for Consult: Cough congestion Chief Complaint: Cough, congestion, spitting up History of Present Illness: Patient is 88 years of age the past 2 weeks she has been complaining of a cough productive denies any shortness of breath chest pain no fever or chills took [id number] medications and appeared in the hospital patient quit smoking in 1991 no prior history of obstructive airways disease former 1 pack a day smoker Allergies codeine [Codeine] Adverse Reaction (Verified 02/01/12 09:06) vomiting Home Medications: Levothyroxine [Synthroid*] 50 mcg PO DAILY 09/06/13 Apixaban [Eliquis *] 2.5 mg PO BID 04/14/18 Digoxin [Lanoxin*] 125 mcg PO DAILY 04/14/18 Metoprolol Succinate [Toprol Xl*] 25 mg PO BID 04/14/18 Tramadol HCl [Ultram] 50 mg PO DAILY PRN 04/14/18 Bosutinib [Bosulif] 3 tab PO BREAKFAST 05/12/18 Cranberry 1,000 mg PO DAILY 05/12/18 Diphenhydramine HCl [Allergy Relief] 25 mg PO DAILY 05/12/18 Gabapentin [Neurontin] 2 cap PO QID 05/12/18 Ranitidine HCl [Zantac] 150 mg PO DAILY 05/12/18 Vit C/E/Zn/Coppr/Lutein/Zeaxan [Preservision Areds 2 Softgel] 1 each PO DAILY - Past Medical/Surgical History Diabetic: No -: Congestive Heart Failure, CAD -: GERD -: Edema -: Varicose Veins -: Peripheral Neuropathy -: CML (chronic myeloid leukemia) -: Vitamin D Deficiency -: Hypothyroidism -: Insomnia -: Renal Insufficiency Syndrome -: Anemia -: Angiodysplasia of intestine with hemorrhage -: Hysterectomy -: Back surgery x2 -: Debbie -: bladder sx. -: carotid sx - Family History Mother Medical History: Cancer, Liver disease Father Medical History: Cancer, Liver disease Notes: THROAT CANCER - Social History Smoking Status: Former smoker Alcohol use: No CD- Drugs: No Caffeine use: Yes Place of Residence: Home Review of Systems 10-point ROS is otherwise unremarkable Physical Examination Temp Pulse Resp BP Pulse Ox 97.2 F 76 18 133/80 90 L 05/13/18 08:00 05/13/18 08:00 05/13/18 08:00 05/13/18 08:00 05/13/18 08:00 General: Alert, Oriented x3 HEENT: Atraumatic Neck: Supple Respiratory: Expiratory wheezes Cardiovascular: No edema, Regular rate/rhythm Gastrointestinal: Normal bowel sounds, Soft and benign Laboratory Data (last 24 hrs) 05/12/18 12:55: PT 17.1 H, INR 1.44 05/12/18 12:55: WBC 17.7 H, Hgb 9.4 L, Hct 28.8 L, Plt Count 1676 H* 05/12/18 12:55: Sodium 138, Potassium 4.7, BUN 19 H, Creatinine 1.10, Glucose 89 , Magnesium 2.7 H D, Total Bilirubin 0.3, AST 27, ALT 17, Alkaline Phosphatase 116, Lipase 138 - Problems (1) Cough Current Visit: Yes Status: Acute Plan: Patient is 88 years of age admitted with an acute cough for the past 2 weeks this no evidence of pneumonia she has CLL seen by the Oncology former significant tobacco abuse quit in 1991 she may have underlying obstructive airways disease pro calcitonin level is negative ice recommend treatment with low-dose prednisone patient is on anticoagulants probably has underlying AFib now in sinus her possible Haemophilus influenza infection I have added cefuroxime. Possible discharge tomorrow consult cardiology Consul room-air saturation is satisfactory chest x-ray shows elevated left hemidiaphragm other was no evidence of an infection white count is elevated from her CLL
[2018-05-13] MEDS: RANITIDINE 150 MG TABLET PO SCH (09:00)
[2018-05-13] MEDS: HOME MED 1 EA UNK (Cranberry [Cranberry] 1,000 MG) PO SCH (09:00)
[2018-05-13] MEDS: [UNRECOGNIZED DRUG - OTHER] PO SCH (09:00)
[2018-05-13] MEDS: IPRATROPIUM BROM 0.5MG/2.5ML NEB SCH ×3 (09:28→20:55)
[2018-05-13] MEDS: GABAPENTIN 300 MG CAP PO SCH (09:40)
[2018-05-13] MEDS: APIXABAN 2.5 MG TABLET PO SCH ×2 (09:49→21:07)
[2018-05-13] MEDS: METOPROLOL XL 25 MG TAB PO SCH ×2 (09:49→21:06)
[2018-05-13] MEDS: DIPHENHYDRAMINE 25 MG TAB/CAP PO SCH (09:49)
[2018-05-13] MEDS: DIGOXIN 0.125 MG TABLET PO SCH (09:50)
[2018-05-13] MEDS: predniSONE 20 MG TAB PO SCH ×2 (09:52→21:07)
--- NOTE | 2018-05-13 11:01 | ECHO ---
HEIGHT: 5 ft 5 in WEIGHT: 124 lb 0 oz DATE OF STUDY: 05/13/[address]: Mahesh Macias MD 2-DIMENSIONAL: YES M.MODE: YES DOPPLER: YES COLOR FLOW: YES TDS: NO PORTABLE: NO DEFINITY: NO BUBBLE STUDY: NO DIAGNOSIS: CONGESTIVE HEART FAILURE CARDIAC HISTORY: CATHERIZATION: NO SURGERY: NO PROSTHETIC VALVE: NO PACEMAKER: YES MEASUREMENTS (cm) DIASTOLIC (NORMALS) SYSTOLIC (NORMALS) IVSd 1.3 (0.6-1.2) LA Diam 4.3 (1.9-4.0) LVEF 50-55% LVIDd 4.6 (3.5-5.7) LVIDs 3.9 (2.0-3.5) %FS 15% LVPWd 1.2 (0.6-1.2) Ao Diam 2.8 (2.0-3.7) 2 DIMENSIONAL ASSESSMENT: RIGHT ATRIUM: NORMAL LEFT ATRIUM: DILATED RIGHT VENTRICLE: PACEMAKER CATHETER LEFT VENTRICLE: LEFT VENTRICULAR HYPERTROPHY TRICUSPID VALVE: NORMAL MITRAL VALVE: MITRAL ANNULAR CALCIFICATION PULMONIC VALVE: NORMAL AORTIC VALVE: NORMAL PERICARDIAL EFFUSION: NONE AORTIC ROOT: NORMAL LEFT VENTRICULAR WALL MOTION: NORMAL DOPPLER/COLOR FLOW: MILD AORTIC, MITRAL AND TRICUSPID REGURGITATION. ESTIMATED RIGHT VENTRICULAR SYSTOLIC PRESSURE 56%. MODERATE PULMONARY HYPERTENSION. COMMENTS: NORMAL LEFT VENTRICULAR EJECTION FRACTION. LEFT VENTRICULAR HYPERTROPHY. DILATED LEFT ATRIUM. MITRAL ANNULAR CALCIFICATION. PACEMAKER CATHETER IN RIGHT VENTRICLE APEX. MILD AORTIC, MITRAL AND TRICUSPID REGURGITATION. MODERATE PULMONARY HYPERTENSION. TECHNOLOGIST: Jelani MUHAMMAD
[2018-05-13] MEDS: CEFUROXIME 250 MG TAB PO SCH ×2 (11:56→21:06)
[2018-05-13] MEDS ORDERED: GABAPENTIN 300 MG CAP PO SCH ×2 (17:00→21:00)
--- NOTE | 2018-05-13 17:45 | P.PN ---
Subjective Date of Service: 05/13/18 Chief Complaint: Cough, congestion, spitting up Patient seen and examined at bedside with RN. Chart reviewed. Case discussed with pulmonology at this time. Patient is doing much better than before. Denies having any shortness of breath. Continues to have some coughing this at this time. Review of Systems 10-point ROS is otherwise unremarkable Physical Examination - Vital Signs Temperature: 97.1 F Blood Pressure: 115/76 Pulse: 88 Respirations: 18 Pulse Ox (%): 90 - Physical Exam General: Alert, In no apparent distress, Cachectic HEENT: Atraumatic, PERRLA, EOMI Neck: Supple, JVD not distended Respiratory: Normal air movement, Crackles/rales, Expiratory wheezes, Inspiratory wheezes Cardiovascular: Regular rate/rhythm, Normal S1 S2 Gastrointestinal: Normal bowel sounds, No tenderness Musculoskeletal: No tenderness Integumentary: No rashes Neurological: Normal speech, Normal tone, Normal affect Lymphatics: No axilla or inguinal lymphadenopathy - Studies Microbiology Data (last 24 hrs): 05/12/18 12:55 Nasopharnyx Influenza Type A Antigen Screen - Final 05/12/18 12:55 Nasopharnyx Influenza Type B Antigen Screen - Final Medications List Reviewed: Yes Assessment And Plan - Current Problems (Diagnosis) (1) Cough Onset Date: 05/13/18 Current Visit: Yes Status: Acute Plan: acute cough for the past 2 weeks. Most Likely 2.2 to COPD vs PNA -Procal negative but with H.o CA and COPD H.influ posisble -former significant tobacco abuse quit in 1991 -Pulmonology consulted. Appreciate reccs -Duonebs, low-dose prednisone and cefuroxime. -Possible discharge 24-48 hrs (2) Congestive heart failure Onset Date: 11/01/15 Current Visit: No Status: Chronic Plan: Given IV lasix in the ER -ECHO Pending at this time -Restarted on Home medication -If needed will get cardiology consultation (3) CKD (chronic kidney disease) stage 4, GFR 15-29 ml/min Onset Date: 11/01/15 Current Visit: No Status: Chronic (4) GERD (gastroesophageal reflux disease) Onset Date: 11/01/15 Current Visit: No Status: Chronic Qualifiers: Esophagitis presence: without esophagitis Qualified Code(s): K21.9 - Gastro -esophageal reflux disease without esophagitis (5) Hypothyroidism Onset Date: 11/01/15 Current Visit: No Status: Chronic Qualifiers: Hypothyroidism type: acquired Qualified Code(s): E03.9 - Hypothyroidism, unspecified (6) Myelogenous leukemia, chronic Onset Date: 11/01/15 Current Visit: No Status: Chronic Plan: Dr Chavez to see the patient here. (7) Thrombocytosis Onset Date: 04/14/18 Current Visit: No Status: Chronic Discharge Plan: Home Plan to discharge in: 48 Hours - Code Status/Comfort Care Code Status Assessed: Yes Critical Care: No
[2018-05-13] MEDS ORDERED: GABAPENTIN 300 MG CAP ONE (18:08)
[2018-05-13] MEDS: TRAMADOL HCL 50 MG TAB PO PRN (21:11)
[2018-05-14] MEDS: IPRATROPIUM BROM 0.5MG/2.5ML NEB SCH ×3 (02:05→13:20)
[2018-05-14 04:30] VITALS: O2SAT 95
[2018-05-14 05:15] LABS: Absolute Lymphocytes (CBC) 4.7 K/uL (0.7-4.9); Absolute Monocytes 4.2 K/uL (0.1-1.3); Absolute Neutrophil 9.7 K/uL (1.8-8.0); Basophils % 9.1 % (0-1.3); Eosinophils % 0.3 % (0-4.4); Hematocrit 25.2 % (36.0-45.0); Lymphocytes % 22.8 % (15.3-44.8); MCH 29.9 pg (27.0-35.0); MCV 91.2 fL (80-100); MPV 8.7 fL (7.6-11.3); Monocytes % 20.5 % (3.3-12.3); RBC Red Blood Cell Count 2.76 M/uL (3.86-4.86)
[2018-05-14] MEDS: LEVOTHYROXINE SOD 0.05 MG TABLET PO SCH (05:55)
[2018-05-14] MEDS: TRAMADOL HCL 50 MG TAB PO PRN (05:56)
[2018-05-14 06:13] LABS: Anisocytosis 1+; Blood Morphology Comment NOTED (NOT SEEN); Macrocytosis 2+; Platelet Estimate INCR; Platelets, Giant NOTED; Polychromasia 2+
[2018-05-14] MEDS: BOSUTINIB PO SCH (08:00)
--- NOTE | 2018-05-14 08:24 | P.PN ---
Subjective Date of Service: 05/14/18 Chief Complaint: Cough, congestion, spitting up Subjective: Improving (Patient is doing much better no new complaints cough has improved) Review of Systems General: Weakness Respiratory: Cough, Shortness of Breath Physical Examination - Vital Signs Temperature: 97.0 F Blood Pressure: 143/62 Pulse: 61 Respirations: 16 Pulse Ox (%): 91 - Physical Exam General: Alert, Oriented x3 Respiratory: Clear to auscultation bilaterally Cardiovascular: No edema, Normal S1 S2 - Studies Medications List Reviewed: Yes Assessment & Plan - Problems (Diagnosis) (1) Cough Onset Date: 05/13/18 Current Visit: Yes Status: Acute Plan: Patient's cough has improved doing better can be discharged home on prednisone 10 b.i.d. for about 5 days in addition to his Ceftin cultures all negative white count is elevated from a chronic leukemia patient can be discharged home follow with me in 2 weeks
[2018-05-14] MEDS: HOME MED 1 EA UNK (Cranberry [Cranberry] 1,000 MG) PO SCH (09:00)
[2018-05-14] MEDS: [UNRECOGNIZED DRUG - OTHER] PO SCH (09:00)
[2018-05-14] MEDS ORDERED: ENSURE HIGH PROTEIN 237 ML CAN PO SCH (09:00)
--- NOTE | 2018-05-14 09:46 | P.DS ---
Admission Date: 05/12/18 Discharge Date: 05/14/18 Primary Care Provider: Dr. Richmond; Pulmonary-Dr. Livingston; Oncology-Dr. Conner Disposition: DC HOME/HOME HEALTH CARE Discharge Condition: GOOD Reason for Admission: Cough, congestion, spitting up Consultations: Pulmonary-Dr. Livingston Procedures: Chest x-ray: COMPARISON: 2016 FINDINGS: Mild bilateral pulmonary opacities are present. The heart is mildly enlarged. Pacemaker leads are in place. Chronic elevation left hemidiaphragm is seen. IMPRESSION: Mild CHF Echocardiogram: Ejection fraction 50-55% LEFT VENTRICULAR WALL MOTION: NORMAL DOPPLER/COLOR FLOW: MILD AORTIC, MITRAL AND TRICUSPID REGURGITATION. ESTIMATED RIGHT VENTRICULAR SYSTOLIC PRESSURE 56%. MODERATE PULMONARY HYPERTENSION. COMMENTS: NORMAL LEFT VENTRICULAR EJECTION FRACTION. LEFT VENTRICULAR HYPERTROPHY. DILATED LEFT ATRIUM. MITRAL ANNULAR CALCIFICATION. PACEMAKER CATHETER IN RIGHT VENTRICLE APEX. MILD AORTIC, MITRAL AND TRICUSPID REGURGITATION. MODERATE PULMONARY HYPERTENSION. Medical problem list: Cough likely secondary to COPD exacerbation with possible bacterial bronchitis, suspect haemophilus influenzae CHF, diastolic dysfunction with moderate pulmonary hypertension Chronic kidney disease stage 2 GERD Hypothyroidism Chronic myelogenous leukemia with thrombocytosis Atrial fibrillation on chronic anti coagulation therapy Neuropathy Brief History of Present Illness: 88-year-old male presented emergency room with cough over the last 2 weeks. Patient with history of COPD, CHF, chronic kidney disease, GERD and hypothyroidism. Patient also has underlying chronic myelogenous leukemia. Patient was admitted for further evaluation. Patient was seen by pulmonology. Hospital Course: Patient presented with a cough over the last 2 weeks. Patient had no fever. Patient was admitted for further evaluation. Patient seen by pulmonology. COPD exacerbation with possible bacterial bronchitis, suspected haemophilus influenzea was noted. Patient treated with steroids and antibiotics. Patient has improved. At discharge patient will continue with prednisone 10 mg 1 pill twice daily for 5 days. Patient will continue with Ceftin 250 mg 1 pill twice daily for 7 days and Tessalon Perles 100 mg 1 pill 3 times a day as needed for cough. The patient will also continue with Pro air 2 puffs 3 times a day as needed for shortness of breath and Advair 1 puff twice day Recommendation is for the patient follow up with pulmonology in 1-2 weeks to follow up this hospitalization. At discharge home health and physical therapy will be arranged. Patient also has CHF, diastolic dysfunction with moderate pulmonary hypertension. This has remained stable. Patient will continue with a 1500 cc per day fluid restriction and low-salt diet. No need for diuretic therapy at discharge. Patient is to monitor her weight daily. If her weight increases by more than 5 lb she is to contact her PCP for further recommendation. Patient has chronic renal disease stage 2. This has remained stable. Future medications will need to be renally dosed. Recommendation on no further use of nonsteroidal anti-inflammatories to recheck lab-BMP in 1 week to monitor progress. Patient has GERD. Patient will continue with Zantac 150 mg 1 pill daily. Patient has hypothyroidism. Patient will continue with her medication- Synthroid 50 mcg daily. Patient has chronic myelogenous leukemia with thrombocytosis. Patient will continue with her medication-Bosutinib 100 mg 3 pills daily. Patient will follow up with oncology in 1-2 weeks to follow up this hospitalization and continue her care. Patient has chronic atrial fibrillation on chronic anti coagulation therapy. Patient will continue with Eliquis 2.5 mg 1 pill twice daily, metoprolol XL 25 mg 1 pill twice daily and digoxin 0.125 mg 1 pill daily. Patient will need to follow up with cardiology as an outpatient to further monitor. Patient with neuropathy. Patient will continue with gabapentin 400 mg 2 pills 4 times a day and tramadol 50 mg 1 pill daily as needed for pain. Further adjustment can be done by her PCP. Vital Signs/Physical Exam: Temp Pulse Resp BP Pulse Ox 97.0 F 61 16 143/62 H 91 05/14/18 08:24 05/14/18 08:24 05/14/18 08:24 05/14/18 08:24 05/14/18 08:24 General: Alert, In no apparent distress, Oriented x3, Cooperative HEENT: Atraumatic Neck: Supple Respiratory: Clear to auscultation bilaterally, Normal air movement Cardiovascular: Normal pulses, Regular rate/rhythm Gastrointestinal: Normal bowel sounds, Soft and benign, Non-distended, No tenderness, No masses, No rebound, No guarding Musculoskeletal: No erythema, No tenderness, No warmth Integumentary: No tenderness/swelling, No erythema, No warmth, No cyanosis Neurological: Normal speech, Normal strength at 5/5 x4 extr, Normal tone, Normal affect Laboratory Data at Discharge: WBC 20.5 K/uL (4.3-10.9) H* D 05/14/18 04:39 Hgb 8.3 g/dL (12.0-15.0) L 05/14/18 04:39 Hct 25.2 % (36.0-45.0) L 05/14/18 04:39 Plt Count 1912 K/uL (152-406) H* 05/14/18 04:39 PT 17.1 SECONDS (9.5-12.5) H 05/12/18 12:55 INR 1.44 05/12/18 12:55 Sodium 138 mmol/L (136-145) 05/14/18 04:39 Potassium 5.0 mmol/L (3.5-5.1) 05/14/18 04:39 BUN 30 mg/dL (7-18) H 05/14/18 04:39 Creatinine 1.10 mg/dL (0.55-1.3) 05/14/18 04:39 Glucose 130 mg/dL (74-106) H 05/14/18 04:39 Magnesium 2.7 mg/dL (1.8-2.4) H D 05/12/18 12:55 Total Bilirubin 0.3 mg/dL (0.2-1.0) 05/12/18 12:55 AST 27 U/L (15-37) 05/12/18 12:55 ALT 17 U/L (12-78) 05/12/18 12:55 Alkaline Phosphatase 116 U/L (45-117) 05/12/18 12:55 Lipase 138 U/L (73-393) 05/12/18 12:55 Home Medications: Levothyroxine [Synthroid*] 50 mcg PO DAILY 09/06/13 Apixaban [Eliquis *] 2.5 mg PO BID 04/14/18 Digoxin [Lanoxin*] 125 mcg PO DAILY 04/14/18 Metoprolol Succinate [Toprol Xl*] 25 mg PO BID 04/14/18 Tramadol HCl [Ultram] 50 mg PO DAILY PRN 04/14/18 Bosutinib [Bosulif] 3 tab PO BREAKFAST 05/12/18 Cranberry 1,000 mg PO DAILY 05/12/18 Diphenhydramine HCl [Allergy Relief] 25 mg PO DAILY 05/12/18 Gabapentin [Neurontin*] 2 cap PO QID 05/12/18 Ranitidine HCl [Zantac] 150 mg PO DAILY 05/12/18 Vit C/E/Zn/Coppr/Lutein/Zeaxan [Preservision Areds 2 Softgel] 1 each PO DAILY Albuterol Sulfate [Proair Hfa] 8.5 gm IH TID PRN #1 hfa.aer.ad 05/14/18 Benzonatate [Tessalon Perle] 100 mg PO TID PRN #30 cap 05/14/18 Cefuroxime [Ceftin*] 250 mg PO BID #14 tab 05/14/18 Fluticasone/Salmeterol [Advair 250-50 Diskus] 1 each IH BID #1 blst.w.dev predniSONE [Deltasone*] 10 mg PO BID #10 tab 05/14/18 New Medications: Albuterol Sulfate [Proair Hfa] 8.5 gm IH TID PRN #1 hfa.aer.ad PRN Reason: Shortness Of Breath Benzonatate [Tessalon Perle] 100 mg PO TID PRN #30 cap PRN Reason: Cough Cefuroxime [Ceftin*] 250 mg PO BID #14 tab Fluticasone/Salmeterol [Advair 250-50 Diskus] 1 each IH BID #1 blst.w.dev predniSONE [Deltasone*] 10 mg PO BID #10 tab Patient Discharge Instructions: 1. Patient will need to follow up with a PCP in 1 week to follow up this hospitalization. 2. Patient presented with a cough over the last 2 weeks. Patient had no fever. Patient was admitted for further evaluation. Patient seen by pulmonology. COPD exacerbation with possible bacterial bronchitis, suspected haemophilus influenzea was noted. Patient treated with steroids and antibiotics. Patient has improved. At discharge patient will continue with prednisone 10 mg 1 pill twice daily for 5 days. Patient will continue with Ceftin 250 mg 1 pill twice daily for 7 days and Tessalon Perles 100 mg 1 pill 3 times a day as needed for cough. The patient will also continue with Pro air 2 puffs 3 times a day as needed for shortness of breath and Advair 1 puff twice day for COPD. Recommendation is for the patient follow up with pulmonology in 1-2 weeks to follow up this hospitalization. At discharge home health and physical therapy will be arranged. 3. Patient also has CHF, diastolic dysfunction with moderate pulmonary hypertension. This has remained stable. Patient will continue with a 1500 cc per day fluid restriction and low-salt diet. No need for diuretic therapy at discharge. Patient is to monitor her weight daily. If her weight increases by more than 5 lb she is to contact her PCP for further recommendation. 4. Patient has chronic renal disease stage 2. This has remained stable. Future medications will need to be renally dosed. Recommendation on no further use of nonsteroidal anti-inflammatories to recheck lab-BMP in 1 week to monitor progress. 5. Patient has GERD. Patient will continue with Zantac 150 mg 1 pill daily. 6. Patient has hypothyroidism. Patient will continue with her medication-Synthroid 50 mcg daily. 7. Patient has chronic myelogenous leukemia with thrombocytosis. Patient will continue with her medication-Bosutinib 100 mg 3 pills daily. Patient will follow up with oncology in 1-2 weeks to follow up this hospitalization and continue her care. 8. Patient has chronic atrial fibrillation on chronic anti coagulation therapy. Patient will continue with Eliquis 2.5 mg 1 pill twice daily, metoprolol XL 25 mg 1 pill twice daily and digoxin 0.125 mg 1 pill daily. Patient will need to follow up with cardiology as an outpatient to further monitor. 9. Patient with neuropathy. Patient will continue with gabapentin 400 mg 2 pills 4 times a day and tramadol 50 mg 1 pill daily as needed for pain. Further adjustment can be done by her PCP. Diet: AHA Activity: Ad pallavi Time spent managing pt's care (in minutes): 55
[2018-05-14] MEDS: predniSONE 20 MG TAB PO SCH (10:29)
[2018-05-14] MEDS: DIPHENHYDRAMINE 25 MG TAB/CAP PO SCH (10:29)
[2018-05-14] MEDS: METOPROLOL XL 25 MG TAB PO SCH (10:29)
[2018-05-14] MEDS: CEFUROXIME 250 MG TAB PO SCH (10:30)
[2018-05-14] MEDS: DIGOXIN 0.125 MG TABLET PO SCH (10:30)
[2018-05-14] MEDS: RANITIDINE 150 MG TABLET PO SCH (10:30)
[2018-05-14] MEDS: APIXABAN 2.5 MG TABLET PO SCH (10:32)
[2018-05-14 14:29] VITALS: BP 164/71; TEMP 97.9
== END 2018-05-14 14:45 | disposition home health service (06) | DRG 191 ==
LOC: ER 12:15 → ERHOLD 14:24 → 2ND 16:45
PROVIDERS: ADMIT Family Medicine; ATTEND Family Medicine
DX: J44.1 Chronic obstructive pulmonary disease with (acute) exacerbation (principal); C92.10 Chronic myeloid leukemia, BCR/ABL-positive, not having achieved remission; I13.0 Hypertensive heart and chronic kidney disease with heart failure and stage 1 through stage 4 chronic kidney disease, or unspecified chronic kidney disease; I50.32 Chronic diastolic (congestive) heart failure; N18.4 Chronic kidney disease, stage 4 (severe); J20.1 Acute bronchitis due to Hemophilus influenzae; J44.0 Chronic obstructive pulmonary disease with (acute) lower respiratory infection; K21.9 Gastro-esophageal reflux disease without esophagitis; E03.9 Hypothyroidism, unspecified; D47.3 Essential (hemorrhagic) thrombocythemia; Z79.01 Long term (current) use of anticoagulants; I27.20 Pulmonary hypertension, unspecified; I48.2 Chronic atrial fibrillation; G62.9 Polyneuropathy, unspecified; Z88.5 Allergy status to narcotic agent; Z85.038 Personal history of other malignant neoplasm of large intestine; Z95.0 Presence of cardiac pacemaker; D63.8 Anemia in other chronic diseases classified elsewhere; E55.9 Vitamin D deficiency, unspecified; Z87.891 Personal history of nicotine dependence
CPT/HCPCS: 36415; 71045; 80048; 80076; 80162; 81003; 83605; 83690; 83735; 83880; 84145; 84443; 84484; 85025; 85610; 87040; 87086; 87088; 87804; 93005; 93306; 94640; 94668; 96365; 96375; 97163; 99285; J0696; J1940; J2930; J7512

== ENCOUNTER 2018-05-28 16:03 | Inpatient (IN) | payer OTHER ==
--- OUTSIDE RECORDS SUMMARY | 2018-05-28 16:06 | XMS REPORT | Clinical Summary ---
:1930 Author Organization [facility] Address [address] [place] [address] Care Team Providers Name Role Phone Hernan Richmond Primary Care Provider Adolph Wilson Unavailable Allergies Active Allergy Reactions Severity Noted Date Comments Codeine Nausea And Vomiting 09/23/2016 Hydrocodone-Acetaminophen 09/23/2016 Medications Medication Sig Dispensed Refills Start Date End Date Status tamsulosin (FLOMAX) Take 0.4 mg by 0 Active 0.4 mg Cp24 24 hr mouth daily. capsule carvedilol (COREG) Take 3.125 mg by 0 Active 3.125 MG tablet mouth 2 (two) times daily with breakfast and dinner. furosemide (LASIX) 80 Take 80 mg by 0 Active MG tablet mouth daily. levothyroxine Take 50 mcg by 0 Active (SYNTHROID, mouth Every LEVOTHROID) 50 MCG morning on an tablet empty stomach. traMADol (ULTRAM) 50 Take 50 mg by 0 Active mg tablet mouth 2 (two) times daily as needed for Pain. montelukast Take 10 mg by 0 Active (SINGULAIR) 10 mg mouth nightly. tablet nilotinib (TASIGNA) Take 300 mg by 0 Active 150 mg capsule mouth 2 (two) times daily. nortriptyline Take 75 mg by 0 Active (PAMELOR) 75 MG mouth nightly. capsule digoxin (LANOXIN) Take 125 mcg by 0 Active 0.125 MG tablet mouth every other day. apixaban (ELIQUIS) Take 2.5 mg by 0 Active 2.5 mg Tab tablet mouth 2 (two) times daily. metoprolol Take 25 mg by 0 Active (LOPRESSOR) 25 MG mouth 2 (two) tablet times daily. cycloSPORINE Place 1 drop 0 Active (RESTASIS) 0.05 % into both eyes 2 ophthalmic emulsion (two) times daily. gabapentin Take 400 mg by 0 Active (NEURONTIN) 400 MG mouth 4 (four) capsule times daily. aspirin 325 MG EC Take 1 tablet 30 tablet 0 10/03/2016 10/03/2017 tablet (325 mg total) by mouth daily. Active Problems Problem Noted Date Ventricular tachycardia 01/06/2017 VT (ventricular tachycardia) 01/06/2017 Stenosis of right carotid artery 10/01/2016 Carotid stenosis, asymptomatic, right 09/25/2016 Essential hypertension 09/25/2016 Hypothyroidism 09/25/2016 Family History Medical History Relation Name Comments Cancer Father Cancer Mother Relation Name Status Comments Father Mother Social History Tobacco Use Types Packs/Day Years Used Date Former Smoker Quit: 06/27/1992 Alcohol Use Drinks/Week oz/Week Comments No Sex Assigned at Date Recorded Not on file Job Start Date Occupation Industry Not on file Not on file Not on file Travel History Travel Start Travel End No recent travel history available. Last Filed Vital Signs Not on file Plan of Treatment Health Maintenance Due Date Last Done Comments INFLUENZA VACCINE 04/27/2018 Implants Implanted Type Area Gaming Worker Device Shelf Model / Identifier Expiration Serial / Lot Date Lead Attain Performa 78cm [id number] - [id number] Cardiovascular N/A: [employer] :CARD 10/03/2018 [id number] / Implanted: Qty: 1 on 01/07/2017 by Satya Perales MD Chest RHY: DISEASE [id number] / MGT Ld Endocardial Df4 Act 55 [id number] - [id number] Defibrillators N/A: [employer]:CARD 10/10/2018 [id number] / Implanted: Qty: 1 on 01/07/2017 by Satya Perales MD Chest RHY: DISEASE [id number] / MGT Dev Amplia Quad Green Chain Off Bearer-D Surescn [id number] - [id number] Defibrillators N/A: [employer]:CARD 04/24/2018 [id number] / Implanted: Qty: 1 on 01/07/2017 by Satya Perales MD Chest RHY:PACING SYS [id number] / Grft Hemshld Dbl Silvio 0.3x3.0in [id number] - [id number] Graft/Patch Right: GETINGE 04/26/2021 [id number] / Implanted: Qty: 1 on 10/01/2016 by Miguelangel Stack MD Neck IND:MAQUET:CV [id number] / [id number] Lead Pacemkr Rosa Chew 45x1 [id number] - [id number] Pacemaker Lead N/A: [employer]:CARD 09/23/2018 [id number] / Implanted: Qty: 1 on 01/07/2017 by Satya Perales MD Chest RHY: DISEASE [id number] / MGT Results Not on fileafter 05/27/2017 Insurance Payer Benefit Plan / Group Subscriber ID Type Phone Address CARE IMPROVEMENT MEDICARE MGD CARE IMPROVEMENT PLUS xxxxxxxxx [address]ARE [address] dinora [place]el (Home) [address] [place] [address] Advance Directives For more information, please contact:[address] [phone] Code Status Date Activated Date Inactivated Comments Full Code 01/07/2017 1:15 PM 01/08/2017 4:34 PM This code status was determined by: Patient Full Code 10/01/2016 11:49 AM 10/03/2016 8:34 PM This code status was determined by: Patient Full Code 09/30/2016 6:24 PM 10/01/2016 11:49 AM This code status was determined by: Patient
--- OUTSIDE RECORDS SUMMARY | 2018-05-28 16:07 | XMS REPORT ---
:1930 [facility] Address [address] [place] [address] Dr. [place]o [address] [place] [id number] Care Team Providers Name Role Phone CHUCK [...] Value Reference Range Comments MAGNESIUM (BEAKER) (test prmx=584) 2.0 mg/dL 1.6-2.6 Specimen slightly hemolyzed BASIC METABOLIC [id number] 05:25:00 Test Item Value Reference Range Comments SODIUM (BEAKER) (test 138 meq/L 136-145 jlrt=675) POTASSIUM (BEAKER) (test 4.6 meq/L 3.5-5.1 Specimen slightly ksir=595) hemolyzed CHLORIDE (BEAKER) (test 108 meq/L 98-107 hgso=409) CO2 (BEAKER) (test 23 meq/L 22-29 frii=363) BLOOD UREA NITROGEN 14 mg/dL 7-21 (BEAKER) (test uofp=008) CREATININE (BEAKER) (test 0.87 mg/dL 0.57-1.25 Specimen slightly qwkp=491) hemolyzed GLUCOSE RANDOM (BEAKER) 109 mg/dL 70-105 (test lohq=707) CALCIUM (BEAKER) (test 8.9 mg/dL 8.4-10.2 uddr=834) EGFR (BEAKER) (test 62 mL/min/1.73 sq m ESTIMATED GFR IS NOT ayak=4761) ACCURATE CREATININE CLEARANCE IN PREDICTING GLOMERULAR FILTRATION RATE. ESTIMATED GFR IS NOT APPLICABLE FOR DIALYSIS PATIENTS. CBC (HEMOGRAM ONLY)2017-01-08 05:22:00 Test Item Value Reference Range Comments WHITE BLOOD CELL COUNT (BEAKER) (test pggm=532) 11.1 K/ L 4.0-10.0 RED BLOOD CELL COUNT (BEAKER) (test utfd=145) 3.62 M/ L 4.00-5.00 HEMOGLOBIN (BEAKER) (test usya=075) 12.2 GM/DL 12.0-15.0 HEMATOCRIT (BEAKER) (test lgyc=168) 36.3 % 36.0-45.0 MEAN CORPUSCULAR VOLUME (BEAKER) (test yslv=546) 101.0 fL 82.0-99.0 MEAN CORPUSCULAR HEMOGLOBIN (BEAKER) (test 33.9 pg 27.0-33.0 ulis=526) MEAN CORPUSCULAR HEMOGLOBIN CONC (BEAKER) (test 33.7 GM/DL 32.0-36.0 eryq=855) RED CELL DISTRIBUTION WIDTH (BEAKER) (test 15.2 % 10.3-14.2 idcb=659) PLATELET COUNT (BEAKER) (test pqkd=303) 201 K/CU MM 150-430 MEAN PLATELET VOLUME (BEAKER) (test bqgs=524) 7.6 fL 6.5-10.5 NUCLEATED RED BLOOD CELLS (BEAKER) (test 0 /100 WBC 0-0 qsbv=136) 0.00CBC (HEMOGRAM ONLY)2017-01-07 05:01:00 Test Item Value Reference Range Comments WHITE BLOOD CELL COUNT (BEAKER) (test krxg=332) 5.8 K/ L 4.0-10.0 RED BLOOD CELL COUNT (BEAKER) (test nivt=543) 3.68 M/ L 4.00-5.00 HEMOGLOBIN (BEAKER) (test ejmm=407) 12.1 GM/DL 12.0-15.0 HEMATOCRIT (BEAKER) (test fahy=368) 36.9 % 36.0-45.0 MEAN CORPUSCULAR VOLUME (BEAKER) (test hqbu=779) 100.0 fL 82.0-99.0 MEAN CORPUSCULAR HEMOGLOBIN (BEAKER) (test 33.0 pg 27.0-33.0 gbgk=501) MEAN CORPUSCULAR HEMOGLOBIN CONC (BEAKER) (test 32.8 GM/DL 32.0-36.0 frwt=125) RED CELL DISTRIBUTION WIDTH (BEAKER) (test 13.5 % 10.3-14.2 utlv=349) PLATELET COUNT (BEAKER) (test jsgm=276) 204 K/CU MM 150-430 MEAN PLATELET VOLUME (BEAKER) (test lisa=985) 7.3 fL 6.5-10.5 NUCLEATED RED BLOOD CELLS (BEAKER) (test 0 /100 WBC 0-0 kftb=910) [id number] 02:15:00 Test Item Value Reference Range Comments MAGNESIUM (BEAKER) (test rtlx=221) 2.2 mg/dL 1.6-2.6 BASIC METABOLIC [id number] 02:15:00 Test Item Value Reference Range Comments SODIUM (BEAKER) (test 142 meq/L 136-145 iyhj=444) POTASSIUM (BEAKER) (test 4.0 meq/L 3.5-5.1 yivb=978) CHLORIDE (BEAKER) (test 110 meq/L 98-107 ebru=100) CO2 (BEAKER) (test 23 meq/L 22-29 nxpf=096) BLOOD UREA NITROGEN 21 mg/dL 7-21 (BEAKER) (test jqdz=987) CREATININE (BEAKER) (test 1.02 mg/dL 0.57-1.25 bvbk=726) GLUCOSE RANDOM (BEAKER) 102 mg/dL 70-105 (test fqov=124) CALCIUM (BEAKER) (test 8.9 mg/dL 8.4-10.2 jxyu=534) EGFR (BEAKER) (test 51 mL/min/1.73 sq m ESTIMATED GFR IS NOT ldhk=8909) ACCURATE CREATININE CLEARANCE IN PREDICTING GLOMERULAR FILTRATION RATE. ESTIMATED GFR IS NOT APPLICABLE FOR DIALYSIS PATIENTS. [id number] 02:02:00 Test Item Value Reference Range Comments PARTIAL THROMBOPLASTIN TIME (BEAKER) (test 67.1 seconds 22.5-36.0 taqo=784) CBC W/PLT COUNT & AUTO [id number] 01:59:00 Test Item Value Reference Range Comments WHITE BLOOD CELL COUNT (BEAKER) (test epgr=190) 5.2 K/ L 4.0-10.0 RED BLOOD CELL COUNT (BEAKER) (test sbye=910) 3.33 M/ L 4.00-5.00 HEMOGLOBIN (BEAKER) (test ruxm=092) 11.4 GM/DL 12.0-15.0 HEMATOCRIT (BEAKER) (test sbve=248) 33.5 % 36.0-45.0 MEAN CORPUSCULAR VOLUME (BEAKER) (test qrxg=202) 101.0 fL 82.0-99.0 MEAN CORPUSCULAR HEMOGLOBIN (BEAKER) (test 34.4 pg 27.0-33.0 riyz=987) MEAN CORPUSCULAR HEMOGLOBIN CONC (BEAKER) (test 34.1 GM/DL 32.0-36.0 xjzq=611) RED CELL DISTRIBUTION WIDTH (BEAKER) (test 13.5 % 10.3-14.2 tkde=955) PLATELET COUNT (BEAKER) (test plzu=250) 184 K/CU MM 150-430 MEAN PLATELET VOLUME (BEAKER) (test mfiy=416) 7.0 fL 6.5-10.5 NUCLEATED RED BLOOD CELLS (BEAKER) (test 0 /100 WBC 0-0 cydh=352) NEUTROPHILS RELATIVE PERCENT (BEAKER) (test 49 % evse=148) LYMPHOCYTES RELATIVE PERCENT (BEAKER) (test 34 % nrwr=777) MONOCYTES RELATIVE PERCENT (BEAKER) (test 10 % gvvo=351) EOSINOPHILS RELATIVE PERCENT (BEAKER) (test 7 % kcwu=695) BASOPHILS RELATIVE PERCENT (BEAKER) (test 0 % dxnz=800) NEUTROPHILS ABSOLUTE COUNT (BEAKER) (test 2.52 K/ L 1.80-8.00 yjuk=553) LYMPHOCYTES ABSOLUTE COUNT (BEAKER) (test 1.75 K/ L 1.48-4.50 mcjr=209) MONOCYTES ABSOLUTE COUNT (BEAKER) (test 0.54 K/ L 0.00-1.30 pjct=069) EOSINOPHILS ABSOLUTE COUNT (BEAKER) (test 0.34 K/ L 0.00-0.50 znxh=306) BASOPHILS ABSOLUTE COUNT (BEAKER) (test 0.02 K/ L 0.00-0.20 kyyh=824) 0.00DIGOXIN [id number] 18:00:00 Test Item Value Reference Range Comments DIGOXIN LEVEL (BEAKER) (test uleh=388) 0.4 ng/mL 0.8-2.0 TSH/FREE T4 IF [id number] 18:00:00 Test Item Value Reference Range Comments THYROID STIMULATING HORMONE (BEAKER) (test 1.47 uIU/mL 0.35-4.94 itix=675) [id number] 17:35:00 Test Item Value Reference Range Comments MAGNESIUM (BEAKER) (test wvvn=468) 2.4 mg/dL 1.6-2.6 Fasting lipid panelBASIC METABOLIC [id number] 17:35:00 Test Item Value Reference Range Comments SODIUM (BEAKER) (test 139 meq/L 136-145 pivh=293) POTASSIUM (BEAKER) (test 3.9 meq/L 3.5-5.1 wgoh=689) CHLORIDE (BEAKER) (test 105 meq/L 98-107 ajoy=102) CO2 (BEAKER) (test 27 meq/L 22-29 eyem=599) BLOOD UREA NITROGEN 25 mg/dL 7-21 (BEAKER) (test wlej=921) CREATININE (BEAKER) (test 1.24 mg/dL 0.57-1.25 yctq=774) GLUCOSE RANDOM (BEAKER) 91 mg/dL 70-105 (test xmfd=396) CALCIUM (BEAKER) (test 9.4 mg/dL 8.4-10.2 wtgt=362) EGFR (BEAKER) (test 41 mL/min/1.73 sq m ESTIMATED GFR IS NOT phaq=4003) ACCURATE CREATININE CLEARANCE IN PREDICTING GLOMERULAR FILTRATION RATE. ESTIMATED GFR IS NOT APPLICABLE FOR DIALYSIS PATIENTS. Fasting lipid panelLIPID [id number] 17:35:00 Test Item Value Reference Range Comments TRIGLYCERIDES (BEAKER) (test aquu=801) 81 mg/dL CHOLESTEROL (BEAKER) (test gxal=869) 224 mg/dL HDL CHOLESTEROL (BEAKER) (test pfnh=589) 96 mg/dL LDL CHOLESTEROL CALCULATED (BEAKER) (test 112 mg/dL xigq=750) Triglyceride Reference Range: Low Risk <150 Borderline 150- 199 High Risk 200-499 Very High Risk >=500Cholesterol Reference Range: Low Risk <200 Borderline 200-239 High Risk > 240HDL Cholesterol Reference Range: Low Risk >=60 High Risk <40LDL Cholesterol Reference Range: Optimal <100 Near Optimal 100-129 Borderline 130-159 High 160-189 Very High >=190 Fasting lipid panelHEPATIC FUNCTION [id number] 17:35:00 Test Item Value Reference Range Comments TOTAL PROTEIN (BEAKER) (test uesb=391) 7.7 gm/dL 6.0-8.3 ALBUMIN (BEAKER) (test xukd=0175) 3.9 g/dL 3.5-5.0 BILIRUBIN TOTAL (BEAKER) (test bbre=532) 1.1 mg/dL 0.2-1.2 BILIRUBIN DIRECT (BEAKER) (test ddjq=107) 0.5 mg/dL 0.1-0.5 ALKALINE PHOSPHATASE (BEAKER) (test nelu=604) 120 U/L 40-150 AST (SGOT) (BEAKER) (test rhxg=952) 19 U/L 5-34 ALT (SGPT) (BEAKER) (test ujhd=598) 19 U/L 6-55 Fasting lipid [id number] 17:24:00 Test Item Value Reference Range Comments PARTIAL THROMBOPLASTIN TIME (BEAKER) (test 37.0 seconds 22.5-36.0 mzyn=278) Prior to initiating heparinPROTHROMBIN [id number] 17:23:00 Test Item Value Reference Range Comments PROTIME (BEAKER) (test qyob=485) 14.3 seconds 11.7-14.7 INR (BEAKER) (test yezb=240) 1.1 <=5.9 RECOMMENDED COUMADIN/WARFARIN INR THERAPY RANGESSTANDARD DOSE: 2.0 - 3.0 Includes: PROPHYLAXIS forvenous thrombosis, systemic embolization; TREATMENT for venous thrombosis and/or pulmonary embolus.HIGH RISK: Target INR is 2.5-3.5 for patients with mechanical heart valves.Prior to initiating [id number] 17:23:00 Test Item Value Reference Range Comments PARTIAL THROMBOPLASTIN TIME (BEAKER) (test 36.6 seconds 22.5-36.0 ucha=308) Prior to initiating heparinCBC W/PLT COUNT & AUTO [id number] 17: 20:00 Test Item Value Reference Range Comments WHITE BLOOD CELL COUNT (BEAKER) (test fjea=301) 6.1 K/ L 4.0-10.0 RED BLOOD CELL COUNT (BEAKER) (test fsun=601) 3.72 M/ L 4.00-5.00 HEMOGLOBIN (BEAKER) (test wmyc=475) 12.4 GM/DL 12.0-15.0 HEMATOCRIT (BEAKER) (test fetb=890) 37.4 % 36.0-45.0 MEAN CORPUSCULAR VOLUME (BEAKER) (test kwuv=807) 101.0 fL 82.0-99.0 MEAN CORPUSCULAR HEMOGLOBIN (BEAKER) (test 33.5 pg 27.0-33.0 eepf=253) MEAN CORPUSCULAR HEMOGLOBIN CONC (BEAKER) (test 33.2 GM/DL 32.0-36.0 veaj=211) RED CELL DISTRIBUTION WIDTH (BEAKER) (test 13.5 % 10.3-14.2 oljp=736) PLATELET COUNT (BEAKER) (test lylh=520) 219 K/CU MM 150-430 MEAN PLATELET VOLUME (BEAKER) (test qvvd=597) 7.0 fL 6.5-10.5 NUCLEATED RED BLOOD CELLS (BEAKER) (test 0 /100 WBC 0-0 cyhn=964) NEUTROPHILS RELATIVE PERCENT (BEAKER) (test 51 % jgle=039) LYMPHOCYTES RELATIVE PERCENT (BEAKER) (test 33 % pxrx=179) MONOCYTES RELATIVE PERCENT (BEAKER) (test 10 % vuzf=330) EOSINOPHILS RELATIVE PERCENT (BEAKER) (test 5 % awig=774) BASOPHILS RELATIVE PERCENT (BEAKER) (test 1 % qifo=671) NEUTROPHILS ABSOLUTE COUNT (BEAKER) (test 3.09 K/ L 1.80-8.00 sofj=738) LYMPHOCYTES ABSOLUTE COUNT (BEAKER) (test 1.99 K/ L 1.48-4.50 ldfo=856) MONOCYTES ABSOLUTE COUNT (BEAKER) (test 0.62 K/ L 0.00-1.30 mazz=057) EOSINOPHILS ABSOLUTE COUNT (BEAKER) (test 0.31 K/ L 0.00-0.50 jzfg=110) BASOPHILS ABSOLUTE COUNT (BEAKER) (test 0.08 K/ L 0.00-0.20 cprx=502) PLATELET [id number] 17:16:00 Test Item Value Reference Range Comments PLATELET COUNT (BEAKER) (test bpua=311) 219 K/CU MM 150-430 BASIC METABOLIC [id number] 04:55:00 Test Item Value Reference Range Comments SODIUM (BEAKER) (test 141 meq/L 136-145 xoue=783) POTASSIUM (BEAKER) (test 3.3 meq/L 3.5-5.1 zfae=180) CHLORIDE (BEAKER) (test 104 meq/L 98-107 ihvh=617) CO2 (BEAKER) (test 28 meq/L 22-29 rftc=032) BLOOD UREA NITROGEN 14 mg/dL 7-21 (BEAKER) (test haxk=098) CREATININE (BEAKER) (test 0.80 mg/dL 0.57-1.25 cqep=702) GLUCOSE RANDOM (BEAKER) 97 mg/dL 70-105 (test eypl=229) CALCIUM (BEAKER) (test 8.9 mg/dL 8.4-10.2 tahb=558) EGFR (BEAKER) (test 68 mL/min/1.73 sq m ESTIMATED GFR IS NOT bmah=9637) ACCURATE CREATININE CLEARANCE IN PREDICTING GLOMERULAR FILTRATION RATE. ESTIMATED GFR IS NOT APPLICABLE FOR DIALYSIS PATIENTS. CBC (HEMOGRAM ONLY)2016-10-03 04:47:00 Test Item Value Reference Range Comments WHITE BLOOD CELL COUNT (BEAKER) (test ykdr=245) 7.8 K/ L 4.0-10.0 RED BLOOD CELL COUNT (BEAKER) (test nbhy=696) 3.12 M/ L 4.00-5.00 HEMOGLOBIN (BEAKER) (test cyrz=203) 11.2 GM/DL 12.0-15.0 HEMATOCRIT (BEAKER) (test dccs=876) 32.5 % 36.0-45.0 MEAN CORPUSCULAR VOLUME (BEAKER) (test uvip=958) 104.0 fL 82.0-99.0 MEAN CORPUSCULAR HEMOGLOBIN (BEAKER) (test 35.8 pg 27.0-33.0 lldm=206) MEAN CORPUSCULAR HEMOGLOBIN CONC (BEAKER) (test 34.4 GM/DL 32.0-36.0 nkwt=689) RED CELL DISTRIBUTION WIDTH (BEAKER) (test 12.8 % 10.3-14.2 kqlv=184) PLATELET COUNT (BEAKER) (test rlrz=349) 190 K/CU MM 150-430 MEAN PLATELET VOLUME (BEAKER) (test ejft=017) 7.4 fL 6.5-10.5 NUCLEATED RED BLOOD CELLS (BEAKER) (test 0 /100 WBC 0-0 kutw=808) [id number] 04:41:00 Test Item Value Reference Range Comments PROTIME (BEAKER) (test pahi=753) 13.1 seconds 11.7-14.7 INR (BEAKER) (test zosx=076) 1.0 <=5.9 PARTIAL THROMBOPLASTIN TIME (BEAKER) (test 28.1 seconds 22.5-36.0 jruc=503) RECOMMENDED COUMADIN/WARFARIN INR THERAPY RANGESSTANDARD DOSE: 2.0 - 3.0 Includes: PROPHYLAXIS forvenous thrombosis, systemic embolization; TREATMENT for venous thrombosis and/or pulmonary embolus.HIGH RISK: Target INR is 2.5-3.5 for patients with mechanical heart valves.CREATINE KINASE (CK), TOTAL AND [id number] 04:53:00 Test Item Value Reference Range Comments CREATINE KINASE TOTAL (BEAKER) (test tsnm=927) 36 U/L 29-200 CREATINE KINASE-MB (BEAKER) (test qmwr=771) 1.6 ng/mL 0.0-6.6 CREATINE KINASE-MB INDEX (BEAKER) (test dmmp=233) 4.4 % Effective 06/14/2014: CK-MB Reference Range ChangeNew: 0.0-6.6 Previous: 0.0- 4.9CK-MB Reference Range:<6.7 Normal6.7-10.0 Borderline>10.0 AbnormalTROPONIN [id number] 04:53:00 Test Item Value Reference Range Comments TROPONIN I (BEAKER) (test taox=238) 0.03 ng/mL 0.00-0.03 Effective 06/14/2014: Reference Range [...] acute neurological disease, and persistent tachyarrhythmia.BASIC METABOLIC [id number] 04:46:00 Test Item Value Reference Range Comments SODIUM (BEAKER) (test 139 meq/L 136-145 usyg=002) POTASSIUM (BEAKER) (test 3.7 meq/L 3.5-5.1 namz=942) CHLORIDE (BEAKER) (test 104 meq/L 98-107 bwrd=387) CO2 (BEAKER) (test 27 meq/L 22-29 yyya=535) BLOOD UREA NITROGEN 14 mg/dL 7-21 (BEAKER) (test ugak=986) CREATININE (BEAKER) (test 0.82 mg/dL 0.57-1.25 ilso=017) GLUCOSE RANDOM (BEAKER) 102 mg/dL 70-105 (test ufhn=124) CALCIUM (BEAKER) (test 9.1 mg/dL 8.4-10.2 asqi=414) EGFR (BEAKER) (test 66 mL/min/1.73 sq m ESTIMATED GFR IS NOT pwkr=6291) ACCURATE CREATININE CLEARANCE IN PREDICTING GLOMERULAR FILTRATION RATE. ESTIMATED GFR IS NOT APPLICABLE FOR DIALYSIS PATIENTS. [id number] 04:41:00 Test Item Value Reference Range Comments PROTIME (BEAKER) (test mdjz=619) 13.5 seconds 11.7-14.7 INR (BEAKER) (test oyyh=303) 1.0 <=5.9 PARTIAL THROMBOPLASTIN TIME (BEAKER) (test 33.1 seconds 22.5-36.0 vrqj=016) RECOMMENDED COUMADIN/WARFARIN INR THERAPY RANGESSTANDARD DOSE: 2.0 - 3.0 Includes: PROPHYLAXIS forvenous thrombosis, systemic embolization; TREATMENT for venous thrombosis and/or pulmonary embolus.HIGH RISK: Target INR is 2.5-3.5 for patients with mechanical heart valves.CBC (HEMOGRAM ONLY)2016-10-02 04:33:00 Test Item Value Reference Range Comments WHITE BLOOD CELL COUNT (BEAKER) (test owax=652) 9.4 K/ L 4.0-10.0 RED BLOOD CELL COUNT (BEAKER) (test kxoq=526) 3.07 M/ L 4.00-5.00 HEMOGLOBIN (BEAKER) (test ozfi=314) 11.0 GM/DL 12.0-15.0 HEMATOCRIT (BEAKER) (test zkur=292) 31.9 % 36.0-45.0 MEAN CORPUSCULAR VOLUME (BEAKER) (test bwyf=479) 104.0 fL 82.0-99.0 MEAN CORPUSCULAR HEMOGLOBIN (BEAKER) (test 36.0 pg 27.0-33.0 ejai=007) MEAN CORPUSCULAR HEMOGLOBIN CONC (BEAKER) (test 34.6 GM/DL 32.0-36.0 epsa=349) RED CELL DISTRIBUTION WIDTH (BEAKER) (test 12.7 % 10.3-14.2 oarv=730) PLATELET COUNT (BEAKER) (test ciuf=773) 205 K/CU MM 150-430 MEAN PLATELET VOLUME (BEAKER) (test tyme=946) 7.3 fL 6.5-10.5 NUCLEATED RED BLOOD CELLS (BEAKER) (test 0 /100 WBC 0-0 hgwh=153) 0.00TSH/FREE T4 IF [id number] 19:30:00 Test Item Value Reference Range Comments THYROID STIMULATING HORMONE (BEAKER) (test 0.43 uIU/mL 0.35-4.94 vgfl=850) CREATINE KINASE (CK), TOTAL AND [id number] 19:14:00 Test Item Value Reference Range Comments CREATINE KINASE TOTAL (BEAKER) (test hbtl=642) 53 U/L 29-200 CREATINE KINASE-MB (BEAKER) (test hmij=449) 2.6 ng/mL 0.0-6.6 CREATINE KINASE-MB INDEX (BEAKER) (test csrj=080) 4.9 % Effective 06/14/2014: CK-MB Reference Range ChangeNew: 0.0-6.6 Previous: 0.0- 4.9CK-MB Reference Range:<6.7 Normal6.7-10.0 Borderline>10.0 AbnormalTROPONIN [id number] 19:14:00 Test Item Value Reference Range Comments TROPONIN I (BEAKER) (test yygw=529) 0.01 ng/mL 0.00-0.03 Effective 06/14/2014: Reference Range [...] renalfailure, acidosis, acute neurological disease, and persistent tachyarrhythmia.[id number] 15:20: 00 Test Item Value Reference Range Comments MAGNESIUM (BEAKER) (test dpac=574) 1.9 mg/dL 1.6-2.6 BASIC METABOLIC [id number] 15:20:00 Test Item Value Reference Range Comments SODIUM (BEAKER) (test 141 meq/L 136-145 qfyp=373) POTASSIUM (BEAKER) (test 3.9 meq/L 3.5-5.1 imjw=960) CHLORIDE (BEAKER) (test 108 meq/L 98-107 uxnn=990) CO2 (BEAKER) (test 25 meq/L 22-29 spwg=241) BLOOD UREA NITROGEN 14 mg/dL 7-21 (BEAKER) (test ydur=714) CREATININE (BEAKER) (test 0.84 mg/dL 0.57-1.25 watm=609) GLUCOSE RANDOM (BEAKER) 130 mg/dL 70-105 (test cjoa=838) CALCIUM (BEAKER) (test 8.8 mg/dL 8.4-10.2 pwnh=859) EGFR (BEAKER) (test 64 mL/min/1.73 sq m ESTIMATED GFR IS NOT lueu=9021) ACCURATE CREATININE CLEARANCE IN PREDICTING GLOMERULAR FILTRATION RATE. ESTIMATED GFR IS NOT APPLICABLE FOR DIALYSIS PATIENTS. CBC (HEMOGRAM ONLY)2016-10-01 14:52:00 Test Item Value Reference Range Comments WHITE BLOOD CELL COUNT (BEAKER) (test lzzt=288) 10.1 K/ L 4.0-10.0 RED BLOOD CELL COUNT (BEAKER) (test wdsi=047) 3.40 M/ L 4.00-5.00 HEMOGLOBIN (BEAKER) (test fdic=236) 11.9 GM/DL 12.0-15.0 HEMATOCRIT (BEAKER) (test xvxm=502) 34.6 % 36.0-45.0 MEAN CORPUSCULAR VOLUME (BEAKER) (test akks=703) 102.0 fL 82.0-99.0 MEAN CORPUSCULAR HEMOGLOBIN (BEAKER) (test 35.1 pg 27.0-33.0 zkdx=401) MEAN CORPUSCULAR HEMOGLOBIN CONC (BEAKER) (test 34.5 GM/DL 32.0-36.0 yzvc=366) RED CELL DISTRIBUTION WIDTH (BEAKER) (test 13.5 % 10.3-14.2 zzdk=498) PLATELET COUNT (BEAKER) (test lnlh=765) 204 K/CU MM 150-430 MEAN PLATELET VOLUME (BEAKER) (test uase=754) 7.4 fL 6.5-10.5 NUCLEATED RED BLOOD CELLS (BEAKER) (test 0 /100 WBC 0-0 kkaw=586) 0.00BASIC METABOLIC [id number] 11:00:00 Test Item Value Reference Range Comments SODIUM (BEAKER) (test 142 meq/L 136-145 jjeg=844) POTASSIUM (BEAKER) (test 4.5 meq/L 3.5-5.1 nork=874) CHLORIDE (BEAKER) (test 103 meq/L 98-107 ndgh=123) CO2 (BEAKER) (test 28 meq/L 22-29 syac=000) BLOOD UREA NITROGEN 28 mg/dL 7-21 (BEAKER) (test cbft=702) CREATININE (BEAKER) (test 1.04 mg/dL 0.57-1.25 ravn=387) GLUCOSE RANDOM (BEAKER) 98 mg/dL 70-105 (test uwog=650) CALCIUM (BEAKER) (test 9.8 mg/dL 8.4-10.2 dhze=348) EGFR (BEAKER) (test 50 mL/min/1.73 sq m ESTIMATED GFR IS NOT cxws=2626) ACCURATE CREATININE CLEARANCE IN PREDICTING GLOMERULAR FILTRATION RATE. ESTIMATED GFR IS NOT APPLICABLE FOR DIALYSIS PATIENTS. CBC W/PLT COUNT & AUTO [id number] 10:59:00 Test Item Value Reference Range Comments WHITE BLOOD CELL COUNT (BEAKER) (test rbtc=852) 7.0 K/ L 4.0-10.0 RED BLOOD CELL COUNT (BEAKER) (test spya=599) 3.77 M/ L 4.00-5.00 HEMOGLOBIN (BEAKER) (test elvj=848) 13.2 GM/DL 12.0-15.0 HEMATOCRIT (BEAKER) (test yqgx=573) 38.5 % 36.0-45.0 MEAN CORPUSCULAR VOLUME (BEAKER) (test uief=771) 102.0 fL 82.0-99.0 MEAN CORPUSCULAR HEMOGLOBIN (BEAKER) (test 34.9 pg 27.0-33.0 ndxo=804) MEAN CORPUSCULAR HEMOGLOBIN CONC (BEAKER) (test 34.2 GM/DL 32.0-36.0 qdzt=094) RED CELL DISTRIBUTION WIDTH (BEAKER) (test 13.6 % 10.3-14.2 fcwl=517) PLATELET COUNT (BEAKER) (test jyrk=199) 233 K/CU MM 150-430 MEAN PLATELET VOLUME (BEAKER) (test klyu=053) 7.3 fL 6.5-10.5 NUCLEATED RED BLOOD CELLS (BEAKER) (test 0 /100 WBC 0-0 ojmj=689) NEUTROPHILS RELATIVE PERCENT (BEAKER) (test 60 % tzue=810) LYMPHOCYTES RELATIVE PERCENT (BEAKER) (test 27 % domi=590) MONOCYTES RELATIVE PERCENT (BEAKER) (test 9 % rajg=575) EOSINOPHILS RELATIVE PERCENT (BEAKER) (test 3 % ucwr=090) BASOPHILS RELATIVE PERCENT (BEAKER) (test 1 % kvpn=878) NEUTROPHILS ABSOLUTE COUNT (BEAKER) (test 4.20 K/ L 1.80-8.00 srql=503) LYMPHOCYTES ABSOLUTE COUNT (BEAKER) (test 1.92 K/ L 1.48-4.50 hqrj=299) MONOCYTES ABSOLUTE COUNT (BEAKER) (test 0.60 K/ L 0.00-1.30 wflz=442) EOSINOPHILS ABSOLUTE COUNT (BEAKER) (test 0.23 K/ L 0.00-0.50 okmo=037) BASOPHILS ABSOLUTE COUNT (BEAKER) (test 0.07 K/ L 0.00-0.20 afpw=318) 0.00PT/[id number] 10:58:00 Test Item Value Reference Range Comments PROTIME (BEAKER) (test uvhf=995) 12.7 seconds 11.7-14.7 INR (BEAKER) (test onle=294) 1.0 <=5.9 PARTIAL THROMBOPLASTIN TIME (BEAKER) (test 29.7 seconds 22.5-36.0 trem=255) RECOMMENDED COUMADIN/WARFARIN INR THERAPY RANGESSTANDARD DOSE: 2.0 - 3.0 Includes: PROPHYLAXIS forvenous thrombosis, systemic embolization; TREATMENT for venous thrombosis and/or pulmonary embolus.HIGH RISK: Target INR is 2.5-3.5 for patients with mechanical heart valves.
[2018-05-28 17:31] LABS: Absolute Lymphocytes (CBC) 2.8 K/uL (0.7-4.9); Absolute Monocytes 1.1 K/uL (0.1-1.3); Absolute Neutrophil 12.3 K/uL (1.8-8.0); Basophils % 7.3 % (0-1.3); Eosinophils % 0.7 % (0-4.4); Hematocrit 15.8 % (36.0-45.0); Lymphocytes % 15.9 % (15.3-44.8); MCH 29.1 pg (27.0-35.0); MCV 97.3 fL (80-100); RBC Red Blood Cell Count 1.63 M/uL (3.86-4.86)
[2018-05-28 17:35] LABS: Protime INR 1.38
[2018-05-28 17:48] LABS: Albumin 3.7 g/dL (3.4-5.0); Bilirubin Direct 0.2 mg/dL (0-0.2); Bilirubin Total 0.6 mg/dL (0.2-1.0); CKMB Creatine Kinase MB 2.1 ng/mL (0.3-3.6); Magnesium 2.5 mg/dL (1.8-2.4); Potassium 4.5 mmol/L (3.5-5.1); Protein, Total 7.1 g/dL (6.4-8.2); Troponin (Emerg Dept Use Only) 0.03 ng/mL (0.0-0.045)
[2018-05-28] MEDS ORDERED: NA CHLORIDE 0.9% 1,000 ML ONE (18:00)
[2018-05-28] MEDS ORDERED: NA CHLORIDE 0.9% 100 ML IV ONE ×2 (19:38→23:31)
--- NOTE | 2018-05-28 19:44 | ER ---
Nurse's Notes [facility] Name: Nikky Ocampo Age: 88 yrs Sex: Female : 1930 Arrival Date: 05/28/2018 Time: 16:06 Bed 13 Private MD: Hernan Richmond E Diagnosis: Anemia in neoplastic disease;Unspecified combined systolic (congestive) and diastolic (congestive) heart failure Presentation: 05/28 16:11 Presenting complaint: Patient states: SOB, dizziness for a couple of days. Reports sv having a blood transfusion a couple of days ago. Reports chemo a couple of weeks ago. Transition of care: patient was not received from another setting of care. Onset of symptoms was April 2018. Care prior to arrival: None. 16:11 Method Of Arrival: Wheelchair sv 16:11 Acuity: TASIA 3 sv 19:15 Risk Assessment: Do you want to hurt yourself or someone else? Patient reports no cc3 desire to harm self or others. Initial Sepsis Screen: Does the patient meet any 2 criteria? No. Patient's initial sepsis screen is negative. Does the patient have a suspected source of infection? No. Patient's initial sepsis screen is negative. Triage Assessment: 19:15 General: Appears in no apparent distress. comfortable, Behavior is calm, cooperative, cc3 appropriate for age. Respiratory: Onset: The symptoms/episode began/occurred since a couple of weeks ago, the patient has mild shortness of breath. Respiratory: Airway is patent Respiratory effort is even, unlabored, Respiratory pattern is regular, symmetrical. Historical: - Allergies: 16:13 Codeine; sv 19:15 Bosulif; cc3 - Home Meds: 19:15 Allergy Medicine Oral [Active]; Bactrim DS 800-160 mg Oral tab 1 tab q12 hours x 10 cc3 days [Active]; cranberry Oral [Active]; dasatinib Oral [Active]; Econazole Nitrate Cream [Active]; Estrace CREAM Oral [Active]; fluconazole Oral [Active]; fluticasone nasal [Active]; levothyroxine 50 mcg tab 1 tab once daily [Active]; preser vision [Active]; Restasis ophthalmic [Active]; spironolactone 50 mg Oral tab 1 tab once daily [Active]; Spironolactone Oral [Active]; 19:15 digoxin 125 mcg oral tab 1 tab every other day [Active]; tramadol 50 mg Oral tab 1 tab cc3 once a day [Active]; metoprolol succinate 25 mg oral Tb24 twice a day [Active]; gabapentin 400 mg oral cap 2 cap 4x per day [Active]; Eliquis 5.5 Oral 1 tab 2 times per day [Active]; Bosulif 100 mg oral tab 3 tabs once daily [Active]; aspercreme lotion 10% PRN [Active]; ranitidine HCl 150 mg oral cap once daily [Active]; - PMHx: 16:13 CHF; Chronic leukemia; colon cancer; Hypertension; Pacemaker; sv - PSHx: 16:13 colon resection; Hysterectomy; back; right carotid; sv - Immunization history:: Adult Immunizations not up to date. - Social history:: Smoking status: unknown. - Family history:: not pertinent. - Ebola Screening: : No symptoms or risks identified at this time. - Hospitalizations: : No recent hospitalization is reported. - History obtained from: daughter. Screenin:22 Abuse screen: Denies threats or abuse. Denies injuries from another. Nutritional bp screening: No deficits noted. Tuberculosis screening: No symptoms or risk factors identified. Fall Risk No fall in past 12 months (0 pts). Assessment: 16:20 General: Appears in no apparent distress. comfortable, Behavior is calm, cooperative, bp appropriate for age. Pain: Denies pain. Neuro: Level of Consciousness is awake, alert, obeys commands, Oriented to person, place, time, situation, Appropriate for age Reports dizziness. Cardiovascular: Rhythm is sinus tachycardia. Respiratory: Airway is patent Respiratory effort is even, labored, Respiratory pattern is regular, symmetrical, tachypnea Breath sounds are clear bilaterally. GI: No signs and/or symptoms were reported involving the gastrointestinal system. : No signs and/or symptoms were reported regarding the genitourinary system. EENT: No deficits noted. Derm: Skin is pale, Skin temperature is cool. Musculoskeletal: Circulation, motion, and sensation intact. Range of motion: intact in all extremities. 18:00 Reassessment: ALL CURRENT ORDERS IN PROCESS, RESULTS PENDING. bp 18:38 Reassessment: PT CONSENTED FOR PRBC TRANSFUSION, ADMIT AND TRANSFUSION PENDING. bp 19:15 Reassessment: Patient appears in no apparent distress at this time. Patient and/or cc3 family updated on plan of care and expected duration. Pain level reassessed. Patient is alert, oriented x 3, equal unlabored respirations, skin warm/dry/pink. Received this female patient from morning shift Akila Torres as a case of anemia with hemoglobin of 4.7 for 2 units PRBC transfusion, patient already consented. With IV cannula gauge 22 at the right ACV saline locked. 19:36 Reassessment: Patient appears in no apparent distress at this time. Patient and/or cc3 family updated on plan of care and expected duration. Pain level reassessed. Patient is alert, oriented x 3, equal unlabored respirations, skin warm/dry/pink. Received the first unit of packed RBC with blood component number of [id number] counter checked with charge nurse Lauren. Baseline vital signs taken and recorded. 19:43 Reassessment: Patient appears in no apparent distress at this time. Patient and/or cc3 family updated on plan of care and expected duration. Pain level reassessed. Patient is alert, oriented x 3, equal unlabored respirations, skin warm/dry/pink. Started the first unit of PRBC transfusion, monitored the patient closely for the first 15 minutes. 20:30 Reassessment: Patient appears in no apparent distress at this time. Patient and/or cc3 family updated on plan of care and expected duration. Pain level reassessed. Patient is alert, oriented x 3, equal unlabored respirations, skin warm/dry/pink. 21:30 Reassessment: Patient appears in no apparent distress at this time. Patient and/or cc3 family updated on plan of care and expected duration. Pain level reassessed. Patient is alert, oriented x 3, equal unlabored respirations, skin warm/dry/pink. Room available in room 427, called for report but was told that the nurse who will receive will call me back. 21:45 Reassessment: Report handed over to AKILA Matt for continuity of care. cc3 22:00 Reassessment: Patient appears in no apparent distress at this time. Patient and/or cc3 family updated on plan of care and expected duration. Pain level reassessed. Patient is alert, oriented x 3, equal unlabored respirations, skin warm/dry/pink. Patient left ER for admission vitally stable by stretcher escorted by me, missile technicianchalino Boateng and patient's daughters. Vital Signs: 16:13 BP 110 / 39; Pulse 71; Resp 16; Temp 97; Pulse Ox 99% ; Weight 54.43 kg; bp 17:00 BP 121 / 44; Pulse 65; Resp 24; Pulse Ox 99% ; bp 18:00 BP 100 / 42; Pulse 71; Resp 18; Pulse Ox 99% ; bp 19:36 BP 128 / 43; Pulse 70; Resp 12 S; Temp 98(O); Pulse Ox 92% on R/A; cc3 19:48 BP 118 / 50; Pulse 68; Resp 19 S; Temp 98.7(O); Pulse Ox 96% on R/A; cc3 19:53 BP 118 / 42; Pulse 70; Resp 21; Temp 98.5(O); Pulse Ox 95% on R/A; cc3 19:58 BP 122 / 47; Pulse 71; Resp 18 S; Temp 98.7; Pulse Ox 95% on R/A; cc3 20:13 BP 121 / 42; Pulse 69; Resp 20 S; Temp 98.5(O); Pulse Ox 93% on R/A; cc3 20:43 BP 125 / 45; Pulse 73; Resp 16 S; Temp 98.2(O); Pulse Ox 94% on R/A; cc3 21:13 BP 127 / 49; Pulse 71; Resp 17; Temp 98.2(O); Pulse Ox 99% on R/A; cc3 21:43 BP 118 / 47; Pulse 71; Resp 18 S; Temp 98.8(O); Pulse Ox 95% on R/A; cc3 22:00 BP 112 / 52; Pulse 72; Resp 18; Temp 98.7(O); Pulse Ox 95% on R/A; cc3 ED Course: 16:06 Patient arrived in ED. mr 16:06 Hernan Richmond MD is Private Physician. mr 16:12 Triage completed. sv 16:18 [facility] kav 16:18 Christian Phillips MD is Attending Physician. kav 16:19 Brian Hastings, AKILA is Primary Nurse. bp 16:22 Patient has correct armband on for positive identification. Bed in low position. Call bp light in reach. Side rails up X2. Adult w/ patient. 16:30 Inserted saline lock: 22 gauge in right antecubital area, using aseptic technique. bp Blood collected. 18:23 PHCP role handed off by Dipika Schmidt FNP snw 18:23 Heather Sim FNP-C is PHCP. snw 19:15 Arm band placed on right wrist. Patient notified of wait time. cc3 19:42 Britany Liang MD is Hospitalizing Provider. snw 22:00 No provider procedures requiring assistance completed. Patient admitted, IV remains in cc3 place. Administered Medications: 17:30 Drug: NS 0.9% 1000 ml Route: IV; Rate: 75 ml/hr; Site: right antecubital; bp 18:24 Follow up: IV Status: Order to discontinue infusion; discontinued as ordered, stopped cc3 by AKILA Torres at 1824H Medication: 19:43 Blood products: PRBCs X 1 unit given. blood component number [id number] See cc3 transfusion record started the first unit of PRBC transfusion. Intake: Outcome: 19:43 Decision to Hospitalize by Provider. snw 21:45 Admitted to Tele accompanied by nurse, accompanied by tech, family with patient, via cc3 stretcher, room 427, with chart, Report called to AKILA Matt 21:45 Condition: stable 21:45 Instructed on the need for admit, Demonstrated understanding of instructions. 22:09 Patient left the ED. cc3 Signatures: Reena Lujan RN RN sv Therrien, Shelly, FNP-C [facility] Dipika Schmidt FNP FNP Lis Archibald Brian Hastings RN RN bp Cordel, Charlene cc3 Corrections: (The following items were deleted from the chart) 18:14 16:13 BP 110 / 39; Resp 16bpm; Temp 97F; sv bp 20:54 19:15 Home Meds: Digoxin Oral; cc3 cc3 20:54 19:15 Home Meds: Eliquis Oral; cc3 cc3 20:54 19:15 Home Meds: Furosemide Oral; cc3 cc3 20:54 19:15 Home Meds: gabapentin Oral; cc3 cc3 20:54 19:15 Home Meds: gabapentin 800 mg Oral tab 4x day; cc3 cc3 20:54 19:15 Home Meds: Lasix 40 mg Oral tab 1 tab once daily; cc3 3 :54 19:15 Home Meds: metoprolol succinate Oral; 3 3 :54 19:15 Home Meds: nortriptyline 75 mg Oral cap 1 cap once daily; 3 3 20:54 19:15 Home Meds: Tasigna 150 mg Oral cap; 3 [facility] :54 19:15 Home Meds: tramadol 50 mg Oral tab q8 hr PRN; 3 [facility] 21:07 19:36 Reassessment: Patient appears in no apparent distress at this time. Patient cc3 and/or family updated on plan of care and expected duration. Pain level reassessed. Patient is alert, oriented x 3, equal unlabored respirations, skin warm/dry/pink. Received the first unit of packed RBC with blood component number of [id number] counter checked with charge nurse Lauren. 3 : 19:43 Reassessment: Patient appears in no apparent distress at this time. Patient cc3 and/or family updated on plan of care and expected duration. Pain level reassessed. Patient is alert, oriented x 3, equal unlabored respirations, skin warm/dry/pink. Started the first unit of PRBC transfusion, monitored the patient closely. [facility] 05/29 03:17 05/28 19:43 Reassessment: Patient appears in no apparent distress at this time. Patient cc3 and/or family updated on plan of care and expected duration. Pain level reassessed. Patient is alert, oriented x 3, equal unlabored respirations, skin warm/dry/pink. Started the first unit of PRBC transfusion, monitored the patient closely for the first 15 minutes. 3 05/29 03:17 05/28 19:36 Reassessment: Patient appears in no apparent distress at this time. Patient cc3 and/or family updated on plan of care and expected duration. Pain level reassessed. Patient is alert, oriented x 3, equal unlabored respirations, skin warm/dry/pink. Received the first unit of packed RBC with blood component number of [id number] counter checked with charge nurse Lauren. Baseline vital signs taken and recorded. [facility] 05/29 03:23 05/28 19:43 Blood products: PRBCs X 1 unit given. unit number [id number] See cc3 transfusion record cc3
--- NOTE | 2018-05-28 19:44 | EDPHYS ---
Physician Documentation [facility] Name: Nikky Ocampo Age: 88 yrs Sex: Female : 1930 Arrival Date: 05/28/2018 Time: 16:06 Bed 13 Private MD: Hernan Richmond E ED Physician Christian Phillips HPI: 05/28 16:24 This 88 yrs old Female presents to ER via Wheelchair with complaints of kav Dizziness, Breathing Difficulty. 16:43 The patient presents with dizziness, generalized weakness, lightheadedness. Onset: The kav symptoms/episode began/occurred acutely. Context: Patient is taking a new treatment, Bofalif, for CML and was at Dr. Isha Torre's office and was sent to the ED for evaluation and treatment of weakness, sob, tachycardia and pallor. Modifying factors: The symptoms are alleviated by nothing, the symptoms are aggravated by CML treatment. Associated signs and symptoms: Pertinent positives: shortness of breath, Pertinent negatives:. Severity of symptoms: At their worst the symptoms were moderate just prior to arrival. Patient's baseline: Neuro: alert and fully oriented. 16:[address] isha torre for CML with Bofalif and was sent to ED for weakness, kav tachycardia, sob, pallor. Historical: - Allergies: 16:13 Codeine; sv 19:15 Bosulif; cc3 - Home Meds: 19:15 Allergy Medicine Oral [Active]; Bactrim DS 800-160 mg Oral tab 1 tab q12 hours x 10 cc3 days [Active]; cranberry Oral [Active]; dasatinib Oral [Active]; Econazole Nitrate Cream [Active]; Estrace CREAM Oral [Active]; fluconazole Oral [Active]; fluticasone nasal [Active]; levothyroxine 50 mcg tab 1 tab once daily [Active]; preser vision [Active]; Restasis ophthalmic [Active]; spironolactone 50 mg Oral tab 1 tab once daily [Active]; Spironolactone Oral [Active]; 19:15 digoxin 125 mcg oral tab 1 tab every other day [Active]; tramadol 50 mg Oral tab 1 tab cc3 once a day [Active]; metoprolol succinate 25 mg oral Tb24 twice a day [Active]; gabapentin 400 mg oral cap 2 cap 4x per day [Active]; Eliquis 5.5 Oral 1 tab 2 times per day [Active]; Bosulif 100 mg oral tab 3 tabs once daily [Active]; aspercreme lotion 10% PRN [Active]; ranitidine HCl 150 mg oral cap once daily [Active]; - PMHx: 16:13 CHF; Chronic leukemia; colon cancer; Hypertension; Pacemaker; sv - PSHx: 16:13 colon resection; Hysterectomy; back; right carotid; sv - Immunization history:: Adult Immunizations not up to date. - Social history:: Smoking status: unknown. - Family history:: not pertinent. - Ebola Screening: : No symptoms or risks identified at this time. - Hospitalizations: : No recent hospitalization is reported. - History obtained from: daughter. ROS: 18:15 Eyes: Negative for injury, pain, redness, and discharge, ENT: Negative for injury, kav pain, and discharge, Neck: Negative for injury, pain, and swelling, Abdomen/GI: Negative for abdominal pain, nausea, vomiting, diarrhea, and constipation, Back: Negative for injury and pain, : Negative for injury, bleeding, discharge, and swelling, MS/Extremity: Negative for injury and deformity, Psych: Negative for depression, anxiety, suicide ideation, homicidal ideation, and hallucinations, Allergy/Immunology: Negative for hives, rash, and allergies, Endocrine: Negative for neck swelling, polydipsia, polyuria, polyphagia, and marked weight changes. 18:15 Constitutional: Positive for malaise, Negative for chills, fever, poor PO intake. 18:15 Respiratory: Positive for shortness of breath, at rest. Negative for cough, orthopnea, sputum production, wheezing. 18:15 Skin: Positive for pallor. 18:15 Neuro: Positive for dizziness. 18:15 Hematologic/Lymphatic: Positive for anemia. Exam: 18:15 Head/Face: Normocephalic, atraumatic. Eyes: Pupils equal round and reactive to light, kav extra-ocular motions intact. Lids and lashes normal. Conjunctiva and sclera are non-icteric and not injected. Cornea within normal limits. Periorbital areas with no swelling, redness, or edema. ENT: Nares patent. No nasal discharge, no septal abnormalities noted. Tympanic membranes are normal and external auditory canals are clear. Oropharynx with no redness, swelling, or masses, exudates, or evidence of obstruction, uvula midline. Mucous membranes moist. Neck: Trachea midline, no thyromegaly or masses palpated, and no cervical lymphadenopathy. Supple, full range of motion without nuchal rigidity, or vertebral point tenderness. No Meningismus. Chest/axilla: Normal chest wall appearance and motion. Nontender with no deformity. No lesions are appreciated. Cardiovascular: Regular rate and rhythm with a normal S1 and S2. No gallops, murmurs, or rubs. Normal PMI, no JVD. No pulse deficits. Abdomen/GI: Soft, non-tender, with normal bowel sounds. No distension or tympany. No guarding or rebound. No evidence of tenderness throughout. Back: No spinal tenderness. No costovertebral tenderness. Full range of motion. MS/ Extremity: Pulses equal, no cyanosis. Neurovascular intact. Full, normal range of motion. Psych: Awake, alert, with orientation to person, place and time. Behavior, mood, and affect are within normal limits. 18:15 Constitutional: The patient appears in no acute distress, alert, awake, comfortable, non-diaphoretic, well groomed, emaciated, frail, obviously ill, pale. 18:15 Respiratory: mild respiratory distress is noted, Breath sounds: are clear throughout, no acute changes. 18:15 Skin: pallor. 18:15 Neuro: dizziness. Vital Signs: 16:13 BP 110 / 39; Pulse 71; Resp 16; Temp 97; Pulse Ox 99% ; Weight 54.43 kg; bp 17:00 BP 121 / 44; Pulse 65; Resp 24; Pulse Ox 99% ; bp 18:00 BP 100 / 42; Pulse 71; Resp 18; Pulse Ox 99% ; bp 19:36 BP 128 / 43; Pulse 70; Resp 12 S; Temp 98(O); Pulse Ox 92% on R/A; cc3 19:48 BP 118 / 50; Pulse 68; Resp 19 S; Temp 98.7(O); Pulse Ox 96% on R/A; cc3 19:53 BP 118 / 42; Pulse 70; Resp 21; Temp 98.5(O); Pulse Ox 95% on R/A; cc3 19:58 BP 122 / 47; Pulse 71; Resp 18 S; Temp 98.7; Pulse Ox 95% on R/A; cc3 20:13 BP 121 / 42; Pulse 69; Resp 20 S; Temp 98.5(O); Pulse Ox 93% on R/A; cc3 20:43 BP 125 / 45; Pulse 73; Resp 16 S; Temp 98.2(O); Pulse Ox 94% on R/A; cc3 21:13 BP 127 / 49; Pulse 71; Resp 17; Temp 98.2(O); Pulse Ox 99% on R/A; cc3 21:43 BP 118 / 47; Pulse 71; Resp 18 S; Temp 98.8(O); Pulse Ox 95% on R/A; cc3 22:00 BP 112 / 52; Pulse 72; Resp 18; Temp 98.7(O); Pulse Ox 95% on R/A; cc3 MDM: 16:18 Medical screening is not applicable. critical access hospital 18:15 Data reviewed: vital signs, nurses notes, lab test result(s). ED course: call from dr. cristian obrien/Oncology to Heather FOOD SERVICES COORDINATOR: patient is being sent to ED for acute onset of weakness, tachycardia sob, pallor, increased platelets. patient is currently being treated with medication, Bafalif (new med for CML) for DX: CML. . 18:23 Transition of care: After a detail discussion of the patient's case, [facility] 19:47 Physician consultation: Britany Liang MD was called at 19:48, was contacted at 19:48, snw regarding admission, to the telemetry unit. 20:52 Physician consultation: Ronald Vizcarra MD was called at 20:52, was contacted at 20:52, snw regarding consult. 05/28 16:33 Order name: Blood Culture Adult (2) critical [facility] hospital 05/28 16:33 Order name: BMP; Complete Time: 18:07 critical [facility] hospital 05/28 16:33 Order name: CBC with Diff 05/28 16:33 Order name: Ckmb; Complete Time: 18:07 critical [facility] hospital 05/28 16:33 Order name: CPK; Complete Time: 18:07 critical [facility] hospital 05/28 16:33 Order name: D-Dimer; Complete Time: 18:07 critical [facility] hospital 05/28 16:33 Order name: Hepatic Function; Complete Time: 18:07 kav 05/28 16:33 Order name: Lipase; Complete Time: 18:07 kav 05/28 16:33 Order name: Magnesium; Complete Time: 18:07 kav 05/28 16:33 Order name: NT PRO-BNP; Complete Time: 18:07 kav 05/28 16:33 Order name: PT-INR; Complete Time: 18:07 kav 05/28 16:33 Order name: Ptt, Activated; Complete Time: 18:07 kav 05/28 16:33 Order name: Troponin (emerg Dept Use Only); Complete Time: 18:07 kav 05/28 17:14 Order name: Type And Screen bp 05/28 16:33 Order name: EKG; Complete Time: 16:34 kav 05/28 16:33 Order name: Cardiac monitoring; Complete Time: 17:13 kav 05/28 16:33 Order name: EKG - Nurse/Tech; Complete Time: 17:13 kav 05/28 16:33 Order name: IV Saline Lock; Complete Time: 17:14 kav 05/28 16:33 Order name: Labs collected and sent; Complete Time: 17:14 kav 05/28 16:33 Order name: O2 Per Protocol; Complete Time: 17:14 kav 05/28 16:33 Order name: O2 Sat Monitoring; Complete Time: 17:14 kav 05/28 17:37 Order name: Manual Differential EDGA 05/28 18:23 Order name: Packed RBC Leukored -1 [facility] 05/28 18:24 Order name: Misc. Order: stop IVF; Complete Time: 18:38 snw 05/28 19:41 Order name: Misc. Order: please put med list in the chart; Complete Time: 20:37 snw Administered Medications: 17:30 Drug: NS 0.9% 1000 ml Route: IV; Rate: 75 ml/hr; Site: right antecubital; bp 18:24 Follow up: IV Status: Order to discontinue infusion; discontinued as ordered, stopped cc3 [place] AKILA [place] 1824H Disposition: 05/29 07:13 Co-signature as Attending Physician, Christian Phillips MD. rn Disposition: 05/28/18 19:43 Hospitalization ordered by Britany Liang for Observation. Preliminary diagnosis are Anemia in neoplastic disease, Unspecified combined systolic (congestive) and diastolic (congestive) heart failure. - Bed requested for Telemetry/MedSurg (Inpatient). - Status is Observation. cc3 - Condition is Stable. - Problem is an acute exacerbation. - Symptoms have worsened. UTI on Admission? No Signatures: Dispatcher [employer] EDMS Kirstie Cates RN RN kl Verde, Stephanie, RN RN sv Therrien, Shelly, SALES AGENT FINANCIAL REPORT SERVICE-C SALES AGENT FINANCIAL REPORT SERVICE-Josew Dipika Schmidt FNP FNP kav Nieto, Roman, MD MD rn Peltier, Brian, RN RN bp Cordel, Charlene cc3 Corrections: (The following items were deleted from the chart) 05/28 16:54 16:52 Constitutional: Negative for fever, chills, and weight loss, Eyes: Negative for kav injury, pain, redness, and discharge, ENT: Negative for injury, pain, and discharge, Neck: Negative for injury, pain, and swelling, Respiratory: Negative for shortness of breath, cough, wheezing, and pleuritic chest pain, Abdomen/GI: Negative for abdominal pain, nausea, vomiting, diarrhea, and constipation, Back: Negative for injury and pain, : Negative for injury, bleeding, discharge, and swelling, MS/Extremity: Negative for injury and deformity, Skin: Negative for injury, rash, and discoloration, Neuro: Negative for headache, weakness, numbness, tingling, and seizure, Psych: Negative for depression, anxiety, suicide ideation, homicidal ideation, and hallucinations, Allergy/Immunology: Negative for hives, rash, and allergies, Endocrine: Negative for neck swelling, polydipsia, polyuria, polyphagia, and marked weight changes, Hematologic/Lymphatic: Negative for swollen nodes, abnormal bleeding, and unusual bruising, kav 16:54 16:52 Cardiovascular: Positive for kav kav 18:18 16:53 Constitutional: Negative for fever, chills, and weight loss, Eyes: Negative for kav injury, pain, redness, and discharge, ENT: Negative for injury, pain, and discharge, Neck: Negative for injury, pain, and swelling, Cardiovascular: Negative for chest pain, palpitations, and edema, Respiratory: Negative for shortness of breath, cough, wheezing, and pleuritic chest pain, Abdomen/GI: Negative for abdominal pain, nausea, vomiting, diarrhea, and constipation, Back: Negative for injury and pain, : Negative for injury, bleeding, discharge, and swelling, MS/Extremity: Negative for injury and deformity, Skin: Negative for injury, rash, and discoloration, Psych: Negative for depression, anxiety, suicide ideation, homicidal ideation, and hallucinations, Allergy/Immunology: Negative for hives, rash, and allergies, Endocrine: Negative for neck swelling, polydipsia, polyuria, polyphagia, and marked weight changes, kav 18:18 16:53 Neuro: Positive for dizziness, weakness, Negative for altered mental status, kav kav 18:18 16:53 Hematologic/Lymphatic: Positive for anemia, critical access hospital [facility] 20:19 19:43 Hospitalization Ordered by Britany Liang MD for Inpatient Admission. Preliminary snw diagnosis is Anemia in neoplastic disease; Unspecified combined systolic (congestive) and diastolic (congestive) heart failure. Bed requested for Telemetry/MedSurg (Inpatient). Status is Inpatient Admission. Condition is Stable. Problem is an acute exacerbation. Symptoms have worsened. UTI on Admission? No. snw 20:54 19:15 Home Meds: Digoxin Oral; cc3 cc3 20:54 19:15 Home Meds: Eliquis Oral; cc3 cc3 20:54 19:15 Home Meds: Furosemide Oral; cc3 cc3 20:54 19:15 Home Meds: gabapentin Oral; cc3 cc3 20:54 19:15 Home Meds: gabapentin 800 mg Oral tab 4x day; cc3 cc3 20:54 19:15 Home Meds: Lasix 40 mg Oral tab 1 tab once daily; cc3 cc3 20:54 19:15 Home Meds: metoprolol succinate Oral; cc3 cc3 20:54 19:15 Home Meds: nortriptyline 75 mg Oral cap 1 cap once daily; cc3 cc3 20:54 19:15 Home Meds: Tasigna 150 mg Oral cap; cc3 cc3 20:54 19:15 Home Meds: tramadol 50 mg Oral tab q8 hr PRN; cc3 cc3 21:02 20:19 05/28/2018 19:43 Hospitalization Ordered by Britany Liang MD for Observation. kl Preliminary diagnosis is Anemia in neoplastic disease; Unspecified combined systolic (congestive) and diastolic (congestive) heart failure. Bed requested for Telemetry/MedSurg (Inpatient). Status is Observation. Condition is Stable. Problem is an acute exacerbation. Symptoms have worsened. UTI on Admission? No. snw 22:09 21:02 05/28/2018 19:43 Hospitalization Ordered by Britany Liang MD for Observation. cc3 Preliminary diagnosis is Anemia in neoplastic disease; Unspecified combined systolic (congestive) and diastolic (congestive) heart failure. Bed requested for Telemetry/MedSurg (Inpatient). Status is Observation. Condition is Stable. Problem is an acute exacerbation. Symptoms have worsened. UTI on Admission? No. kl
--- NOTE | 2018-05-28 20:45 | P.HP ---
Certification for Inpatient Patient admitted to: Observation With expected LOS: <2 Midnights Practitioner: I am a practitioner with admitting privileges, knowledge of patient current condition, hospital course, and medical plan of care. Services: Services provided to patient in accordance with Admission requirements found in Title 42 Section 412.3 of the Code of Federal Regulations Patient History Date of Service: 05/28/18 Reason for admission: Acute on chronic anemia History of Present Illness: Ms Ocampo is an 88-year-old woman with multiple medical problems including CML, pacemaker placement, hypothyroidism, seizure last start a new medication for CML, Bosutinib that produce some anemia of side effects. The patient start complaining of shortness of breath especially with ambulation, lightheadedness and dizziness. She became more pale than usual in the last couple of days. Today she went to see Dr. Jolley for a routine lab work, however due to her clinical presentation, she was referred to come to ER for evaluation. The patient denied any fever or chills, nausea or vomiting. She states that has been constipated lately and she took some stool softener. She also stated that her stools are black. She denied any blood in stools. Lab work significantly abnormal, showed hemoglobin of 4.7, platelet 1705, WBC 17.5. BUN is also elevated at 65 and creatinine 1.7. Allergies codeine [Codeine] Adverse Reaction (Verified 02/01/12 09:06) vomiting Home medications list reviewed: Yes Home Medications: Levothyroxine [Synthroid*] 50 mcg PO DAILY 09/06/13 Apixaban [Eliquis *] 2.5 mg PO BID 04/14/18 Digoxin [Lanoxin*] 125 mcg PO DAILY 04/14/18 Metoprolol Succinate [Toprol Xl*] 25 mg PO BID 04/14/18 Tramadol HCl [Ultram] 50 mg PO DAILY PRN 04/14/18 Bosutinib [Bosulif] 3 tab PO BREAKFAST 05/12/18 Cranberry 1,000 mg PO DAILY 05/12/18 Diphenhydramine HCl [Allergy Relief] 25 mg PO DAILY 05/12/18 Gabapentin [Neurontin*] 2 cap PO QID 05/12/18 Ranitidine HCl [Zantac] 150 mg PO DAILY 05/12/18 Vit C/E/Zn/Coppr/Lutein/Zeaxan [Preservision Areds 2 Softgel] 1 each PO DAILY Albuterol Sulfate [Proair Hfa] 8.5 gm IH TID PRN #1 hfa.aer.ad 05/14/18 Benzonatate [Tessalon Perle] 100 mg PO TID PRN #30 cap 05/14/18 Cefuroxime [Ceftin*] 250 mg PO BID #14 tab 05/14/18 Fluticasone/Salmeterol [Advair 250-50 Diskus] 1 each IH BID #1 blst.w.dev predniSONE [Deltasone*] 10 mg PO BID #10 tab 05/14/18 - Past Medical/Surgical History Diabetic: No -: Congestive Heart Failure, CAD -: GERD -: Edema -: Varicose Veins -: Peripheral Neuropathy -: CML (chronic myeloid leukemia) -: Vitamin D Deficiency -: Hypothyroidism -: Insomnia -: Renal Insufficiency Syndrome -: Anemia -: Angiodysplasia of intestine with hemorrhage -: Hysterectomy -: Back surgery x2 -: Debbie -: bladder sx. -: carotid sx - Family History Mother -: Cancer, Liver disease Father -: Cancer, Liver disease Notes: THROAT CANCER - Social History Smoking Status: Former smoker Alcohol use: No CD- Drugs: No Caffeine use: Yes Place of Residence: Home Review of Systems 10-point ROS is otherwise unremarkable Physical Examination - Physical Exam General: Alert, In no apparent distress, Other (Pale) HEENT: Atraumatic, PERRLA, Mucous membr. moist/pink, EOMI, Sclerae nonicteric Neck: Supple, 2+ carotid pulse no bruit, No LAD, Without JVD or thyroid abnormality Respiratory: Clear to auscultation bilaterally, Normal air movement Cardiovascular: Regular rate/rhythm, Normal S1 S2 Gastrointestinal: Normal bowel sounds, No tenderness Musculoskeletal: No tenderness Integumentary: No rashes Neurological: Normal speech, Normal strength at 5/5 x4 extr, Normal tone, Normal affect Lymphatics: No axilla or inguinal lymphadenopathy - Studies Laboratory Data (last 24 hrs) 05/28/18 17:10: PT 16.3 H, INR 1.38, APTT 31.4 05/28/18 17:10: WBC 17.5 H, Hgb 4.7 L*, Hct 15.8 L*, Plt Count 1705 H* 05/28/18 17:10: Sodium 141, Potassium 4.5, BUN 67 H D, Creatinine 1.70 H, Glucose 124 H, Magnesium 2.5 H, Total Bilirubin 0.6, AST 19, ALT 17, Alkaline Phosphatase 66, Lipase 175 Assessment and Plan - Problems (Diagnosis) (1) Acute on chronic anemia Current Visit: Yes Status: Acute (2) Acute kidney injury superimposed on chronic kidney disease Current Visit: Yes Status: Acute (3) Gastrointestinal hemorrhage with melena Current Visit: Yes Status: Acute (4) Hypothyroidism Onset Date: 11/01/15 Current Visit: No Status: Chronic Qualifiers: Hypothyroidism type: acquired Qualified Code(s): E03.9 - Hypothyroidism, unspecified (5) Myelogenous leukemia, chronic Onset Date: 11/01/15 Current Visit: No Status: Chronic (6) Thrombocytosis Onset Date: 04/14/18 Current Visit: No Status: Chronic - Plan The patient will be admitted to the hospital due to symptomatic anemia. Differential diagnosis include upper GI bleed since the patient has melena, elevated (twice compared with last admission) BUN, and has had significant hemoglobin drop. Bosutinib may also contribute to her anemia, however, she has the patient has history of GI bleed due to angiodysplasias will start IV PPI, keep her NPO, and will call GI specialist for evaluation. - Advance Directives Does patient have a Living Will: No Does patient have a Durable POA for Healthcare: No - Code Status/Comfort Care Code Status Assessed: Yes Code Status: Full Code
[2018-05-28 21:28] LABS: Anisocytosis 3+; Blood Morphology Comment NOTED (NOT SEEN); Platelet Estimate INCR
[2018-05-28 21:29] LABS: Hypochromasia 3+; Platelets, Giant PRESENT; Polychromasia 3+; Rouleau NOTED
--- NOTE | 2018-05-28 22:06 | EKG ---
Test Date: 2018-05-28 Test Time: 16:43:49 [employer] Project Manager: PATEL MEASUREMENT RESULTS: Intervals: Rate: 73 PA: 112 QRSD: 102 QT: 428 QTc: 471 [place]: P: 50 PA: 112 QRS: -20 T: 85 INTERPRETIVE STATEMENTS: Sinus rhythm with premature supraventricular complexes with occasional premature ventricular complexes and occasional atrial paced complexes Nonspecific ST and T wave abnormality Prolonged QT Abnormal ECG Compared to ECG 05/12/2018 12:56:02 Atrial premature complex(es) now present Ventricular premature complex(es) now present Prolonged QT interval now present Left-axis deviation no longer present ST (T wave) deviation still present Electronically Signed On 05-28-18 22:05:43 CDT by Marcello Choi
[2018-05-28] MEDS ORDERED: SODIUM CHLORIDE 0.9% 10ML INJ IV PRN (22:19)
[2018-05-28] MEDS: PANTOPRAZOLE 40 MG INJ IVP SCH (22:19)
[2018-05-28] MEDS ORDERED: ONDANSETRON 4 MG/2 ML VIAL IV PRN (22:19)
[2018-05-28] MEDS: GABAPENTIN 400 MG CAP PO SCH (23:26)
[2018-05-28] MEDS: TRAMADOL HCL 50 MG TAB PO PRN (23:27)
[2018-05-29 05:22] LABS: Absolute Lymphocytes (CBC) 2.8 K/uL (0.7-4.9); Absolute Monocytes 1.1 K/uL (0.1-1.3); Absolute Neutrophil 11.3 K/uL (1.8-8.0); Basophils % 5.7 % (0-1.3); Eosinophils % 1.3 % (0-4.4); Lymphocytes % 17.1 % (15.3-44.8); MCH 27.5 pg (27.0-35.0); MCV 87.6 fL (80-100); MPV 8.6 fL (7.6-11.3); RBC Red Blood Cell Count 2.23 M/uL (3.86-4.86)
[2018-05-29 05:24] LABS: Potassium 4.1 mmol/L (3.5-5.1)
[2018-05-29 06:06] LABS: Hematocrit 19.5 % (36.0-45.0)
[2018-05-29] MEDS ORDERED: NA CHLORIDE 0.9% 250 ML IV SCH (08:00)
[2018-05-29] MEDS ORDERED: PNEUMOCOCCAL VACCINE 0.5 ML IMVAC ONE (08:00)
[2018-05-29] MEDS: DIGOXIN 0.125 MG TABLET PO SCH (09:37)
[2018-05-29] MEDS: GABAPENTIN 400 MG CAP PO SCH ×4 (09:37→20:24)
[2018-05-29] MEDS: PANTOPRAZOLE 40 MG INJ IVP SCH ×2 (09:37→20:23)
[2018-05-29] MEDS: LEVOTHYROXINE SOD 0.05 MG TABLET PO SCH (09:37)
[2018-05-29] MEDS ORDERED: LIDOCAINE 1% MPF 2 ML AMPULE ONE (13:15)
[2018-05-29] MEDS ORDERED: PROPOFOL 200 MG/20 ML VIAL IV ONE (13:15)
--- NOTE | 2018-05-29 16:23 | PN ---
Date of Progress Note: 05/29/2018 Subjective: The patient seen and examined, chart reviewed, and case discussed with RN. The patient says that she feels better after the blood transfusion, however, not quite back to baseline. Still feeling weakness when she gets up. The patient received 2 units of PRBCs so far. Denies any acute events overnight. Review of Systems: Negative except as above. Medications: List reviewed. Code Status: Full. Physical Examination: Vital Signs: Temperature 97.5, heart rate 62, blood pressure 112/52, respirations 16, O2 92% on room air. General: Awake, alert, oriented x3, some acute distress. Somewhat lethargic appearing female, frail, cachectic. BMI 20. CV: S1, S2. Regular rate and rhythm. Peripheral pulses present. Respiratory: Moving air well bilaterally. No wheezing or stridor. Gastrointestinal: Abdomen is soft, nontender, nondistended. Positive bowel sounds. Extremities: No clubbing, cyanosis, or edema. Neurologic: Nonfocal. Cranial nerves 2 through 12 intact grossly. Laboratory Data: Sodium 143, potassium 4.1, chloride 113, CO2 20, BUN 64, creatinine 1.5, glucose 109, calcium 8. WBC 16.4, H and H 6.1/19.5, platelets 1381. Absolute neutrophils 11.3%. Assessment And Plan: An 88-year-old female with: 1. Acute blood loss anemia. The patient has been transfused 2 units PRBCs. We will transfuse at least 1 other unit while we will monitor H and H, likely related to the patient's GI bleed and possibly bosulif medication as well as her hematologic abnormalities including malignancy. 2. Peamp-od-zqewelr kidney injury stage III. Creatinine still above baseline , however, improving. We will continue IV fluids. Avoid NSAIDs and nephrotoxins. Monitor creatinine level. 3. Chronic myelogenous leukemia. The patient is on bosulif, however, it does cause GI hemorrhage. We will hold for now. We will discuss further with Dr. Jolley. 4. Acute GI bleed with melenotic stool. We will monitor H and H and transfuse as needed. Continue IV PPI. 5. Hypothyroidism, acquired. Resume levothyroxine, stable. 6. Thrombocytosis. Plan: We will continue to monitor H and H and transfuse. Follow up with GI and oncology recommendation; will likely need 24 to 48 hours of monitoring once H and H are more stable. GI/DVT prophylaxis, no chemical anticoagulation due to GI bleed. /ZEKE Voice ID: [id number] Report ID: [id number]
[2018-05-29] MEDS ORDERED: FUROSEMIDE 20 MG/ 2ML VIAL IV ONE (20:00)
[2018-05-29] MEDS: TRAMADOL HCL 50 MG TAB PO PRN (20:25)
[2018-05-29] MEDS: METOPROLOL XL 25 MG TAB PO SCH (20:26)
[2018-05-29] MEDS: HOME MED 1 EA UNK (Cyclosporine [Restasis] 1 EACH) OP SCH (20:33)
[2018-05-30 00:25] VITALS: O2SAT 93
--- NOTE | 2018-05-30 01:06 | OP ---
Surgeon: Ronald Vizcarra MD Procedure To Be Performed: Esophagogastroduodenoscopy. Indication For Procedure: Severe symptomatic anemia, rule out upper GI source of bleeding. Incident ally, the patient also has history of CML and has been started on medication that can also cause anem ia. Plan For Anesthesia: Monitored anesthesia care. Complexity: High due to the possibility of therapeutic intervention plus the patient's significant c omorbidities which do include cardiovascular history as well. Technique: After obtaining informed consent from the patient and explaining risks and complications, the patient was placed in the left lateral position and sedation was given. From then on, the scope was advanced into the mouth and carefully guided up to the third portion of the duodenum. There was no evidence of active bleeding seen in contrary to the last EGD that I had also reviewed. 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 Some lesions were treated as detailed below. After the completion of procedure and therapeutic maneuvers, the scope and equipment were withdrawn and proced ure terminated in a safe manner. Findings: Esophagus: No gross lesion seen in the entire esophagus. The distal EG junction was at 3 8 cm. Stomach: Mild patchy erythema seen in the body and antrum. Biopsies taken. Two very small l esions seen that represented small nonbleeding AVMs. Given the complex history, these were ablated. Duodenum: The bulb was normal. In the second portion of the duodenum, another small nonbleeding AV M was seen. This was also ablated. The third portion of the duodenum was normal. Complications: None. Tolerance Of Anesthesia: Excellent. Postoperative Diagnosis: nonbleeding gastric and duodenal arteriovenous malformations, ho wever, appeared to be significantly improved from prior. Unclear if this may be cause of the bleedin g. Plan: Continue current management. Oral PPI. Can start diet and advance as tolerated. Oncology ev aluation for possible medication-induced anemia. Recall GI if needed. US/MODL Voice ID: [id number] Report ID: [id number]
[2018-05-30] MEDS ORDERED: FUROSEMIDE 20 MG/ 2ML VIAL IV ONE (01:58)
[2018-05-30 04:39] LABS: Absolute Monocytes 0.6 K/uL (0.1-1.3); Absolute Neutrophil 9.5 K/uL (1.8-8.0); Basophils % 3.1 % (0-1.3); Eosinophils % 3.9 % (0-4.4); Hematocrit 28.3 % (36.0-45.0); Lymphocytes % 21.3 % (15.3-44.8); MCH 28.8 pg (27.0-35.0); MCV 87.8 fL (80-100); MPV 8.6 fL (7.6-11.3); Monocytes % 4.3 % (3.3-12.3); RBC Red Blood Cell Count 3.22 M/uL (3.86-4.86)
[2018-05-30 05:11] LABS: Albumin 3.1 g/dL (3.4-5.0); Bilirubin Direct 0.3 mg/dL (0-0.2); Bilirubin Total 0.9 mg/dL (0.2-1.0); Folic Acid, (Folate) 6.6 ng/mL (3.1-17.5); Potassium 4.9 mmol/L (3.5-5.1); Protein, Total 6.1 g/dL (6.4-8.2)
[2018-05-30 05:16] LABS: Blood Morphology Comment NOTED (NOT SEEN); Platelet Estimate INCR
[2018-05-30 05:17] LABS: Anisocytosis 1+; Hypochromasia 1+; Polychromasia 2+
[2018-05-30 05:33] VITALS: BMI 20.6
[2018-05-30] MEDS: LEVOTHYROXINE SOD 0.05 MG TABLET PO SCH (08:30)
[2018-05-30] MEDS: HOME MED 1 EA UNK (Cyclosporine [Restasis] 1 EACH) OP SCH (09:00)
[2018-05-30] MEDS ORDERED: DIPHENHYDRAMINE 25 MG TAB/CAP PO SCH (09:00)
[2018-05-30] MEDS: DIGOXIN 0.125 MG TABLET PO SCH (09:17)
[2018-05-30] MEDS: PANTOPRAZOLE 40 MG INJ IVP SCH (09:17)
[2018-05-30] MEDS: METOPROLOL XL 25 MG TAB PO SCH (09:18)
[2018-05-30] MEDS: GABAPENTIN 400 MG CAP PO SCH ×2 (09:18→14:17)
[2018-05-30 12:00] LABS: Hematocrit 28.2 % (36.0-45.0)
[2018-05-30 13:21] VITALS: BP 143/62; TEMP 97.1
[2018-05-30] MEDS: TRAMADOL HCL 50 MG TAB PO PRN (14:17)
--- NOTE | 2018-05-31 15:43 | DS ---
Date of Discharge: 05/30/2018 Consultants: Dr. Jolley with Oncology, Dr. Vizcarra with GI. Procedures: On 05/29/2018, EGD findings; bleeding gastric and duodenal AVMs, gastritis. Admitting Diagnoses: 1.Acute blood loss anemia. 2.Acute kidney injury superimposed on chronic kidney disease. 3.Gastrointestinal hemorrhage with melena. 4.Hypothyroidism. 5.Chronic myelogenous leukemia. 6.Thrombocytosis. Discharge Diagnoses: 1.Acute blood loss anemia, status post 4 units PRBC's total, likely secondary to gastrointestinal bl eed and medication side effect. 2.Acute on chronic kidney injury stage III, improving. 3.Chronic myeloid leukemia, on Bosulif. Okay to resume per Gastrointestinal and Oncology. 4.Acute gastrointestinal bleed with melanotic stools, status post esophagogastroduodenoscopy. Found to have gastritis and arteriovenous malformations, which were eradicated. 5.Hypothyroidism, acquired. 6.Thrombocytosis, likely related to chronic myelogenous leukemia. Hospital Course: The patient is an 88-year-old female with multiple medical conditions including chr onic myelogenous leukemia, pacemaker, hypothyroidism, seizure disorder. The patient also anticoagula elayne with Eliquis, congestive heart failure, coronary artery disease, comes in with GI bleed as well a s dizziness and lightheadedness. The patient was symptomatic. She was found to have a hemoglobin of 4.7. However, she had thrombocytosis with platelets of 1705. She had an elevated white count 17.5 due to her CML. The patient is under treatment with Bosulif, which does have side effect of gastroin testinal bleed. The patient also sees oncologist locally. The patient otherwise was transfused with 2 units of blood initially. Her hemoglobin was still below 7. Was transfused another 2 units due t o a history of heart disease. Her hemoglobin came up to 9.4 and remained stable on recheck. The pat ient was seen by her GI doctor, Zackery, who performed EGD. The patient was found to have some mild gastritis as well as AVM's, which were treated. The patient will continue PPI. Regarding the CML m edication, GI was okay with restarting the medication. No plans for a colonoscopy per GI at this jose c e. The patient denies any further bleeding. She will follow up with Oncology on Friday and will res ume her medication. The patient understands that she has side effects including anemia. The patient states that she understands and at this time the benefits outweigh the risks. If the patient contin ues to have bleeding and becomes anemic, may no longer be able to tolerate the medication and Oncolog y recommends hospice at that time with palliative care. The patient's family was updated by her onco logist. Medications: As per medication reconciliation list. Followup: Follow up with primary care physician in 2 to 3 days. Follow up with oncologist Dr. Leigha flynn, 06/01/2018 on Friday. Follow up with GI, Dr. Vizcarra in 2 weeks. Return to ER for worsening condition. Diet: Heart healthy. Activity: Fall precautions. Physical Examination: General: Awake, alert, oriented, no acute distress. Elderly female, frail, cachectic appearing. CV: S1, S2. Peripheral pulses present. Respiratory: Moving air well bilaterally. Abdomen: Soft, nontender, nondistended. Positive bowel sounds. Extremities: No clubbing, cyanosis, edema. Neuro: Nonfocal. Total time spent discharging the patient was 39 minutes. /ZEKE Voice ID: [id number] Report ID: [id number]
== END 2018-05-30 16:10 | disposition home or self-care (01) | DRG 812 ==
LOC: ER 16:03 → ERHOLD 19:50 → 4TH 21:55
PROVIDERS: ADMIT Internal Medicine; ATTEND Family Medicine
PROC: 30233N1 Transfusion of Nonautologous Red Blood Cells into Peripheral Vein, Percutaneous Approach (ICD-10-PCS; 2018-05-28)
PROC: 0DB78ZX Excision of Stomach, Pylorus, Via Natural or Artificial Opening Endoscopic, Diagnostic (ICD-10-PCS; 2018-05-29)
PROC: 0D5 Gastrointestinal System, Destruction (ICD-10-PCS; 2018-05-29)
PROC: 0D5 Gastrointestinal System, Destruction (ICD-10-PCS; 2018-05-29)
PROC: 0DB68ZX Excision of Stomach, Via Natural or Artificial Opening Endoscopic, Diagnostic (ICD-10-PCS; principal; 2018-05-29 13:00)
DX: D62 Acute posthemorrhagic anemia (principal); C92.10 Chronic myeloid leukemia, BCR/ABL-positive, not having achieved remission; I13.0 Hypertensive heart and chronic kidney disease with heart failure and stage 1 through stage 4 chronic kidney disease, or unspecified chronic kidney disease; N17.9 Acute kidney failure, unspecified; E03.9 Hypothyroidism, unspecified; D47.3 Essential (hemorrhagic) thrombocythemia; Z95.0 Presence of cardiac pacemaker; G40.909 Epilepsy, unspecified, not intractable, without status epilepticus; I25.10 Atherosclerotic heart disease of native coronary artery without angina pectoris; Z88.5 Allergy status to narcotic agent; Z88.8 Allergy status to other drugs, medicaments and biological substances; Z87.891 Personal history of nicotine dependence; K31.819 Angiodysplasia of stomach and duodenum without bleeding; K29.70 Gastritis, unspecified, without bleeding; N18.3 Chronic kidney disease, stage 3 (moderate); I50.9 Heart failure, unspecified
CPT/HCPCS: 36415; 36430; 80048; 80053; 80076; 82248; 82550; 82553; 82607; 82746; 83010; 83540; 83615; 83690; 83735; 83880; 84466; 84484; 85014; 85018; 85025; 85044; 85379; 85610; 85730; 86850; 86880; 86900; 86901; 87040; 87205; 88305; 88312; 93005; 96360; 99285; C9113; J1940; J2001; J2704; J7030; P9016; P9040

== ENCOUNTER 2018-06-02 19:51 | Emergency (ER) | payer OTHER ==
--- OUTSIDE RECORDS SUMMARY | 2018-06-02 19:54 | XMS REPORT ---
:1930 [facility] Address [address] [place] [address] Dr. [place] [address] [place] [id number] Care Team Providers Name Role Phone CHUCK [...] Value Reference Range Comments MAGNESIUM (BEAKER) (test spue=076) 2.0 mg/dL 1.6-2.6 Specimen slightly hemolyzed BASIC METABOLIC [id number] 05:25:00 Test Item Value Reference Range Comments SODIUM (BEAKER) (test 138 meq/L 136-145 fshg=546) POTASSIUM (BEAKER) (test 4.6 meq/L 3.5-5.1 Specimen slightly pejc=650) hemolyzed CHLORIDE (BEAKER) (test 108 meq/L 98-107 uqps=900) CO2 (BEAKER) (test 23 meq/L 22-29 dmnf=229) BLOOD UREA NITROGEN 14 mg/dL 7-21 (BEAKER) (test mtmn=647) CREATININE (BEAKER) (test 0.87 mg/dL 0.57-1.25 Specimen slightly vnzy=247) hemolyzed GLUCOSE RANDOM (BEAKER) 109 mg/dL 70-105 (test debx=910) CALCIUM (BEAKER) (test 8.9 mg/dL 8.4-10.2 mixo=581) EGFR (BEAKER) (test 62 mL/min/1.73 sq m ESTIMATED GFR IS NOT dhzo=1461) ACCURATE CREATININE CLEARANCE IN PREDICTING GLOMERULAR FILTRATION RATE. ESTIMATED GFR IS NOT APPLICABLE FOR DIALYSIS PATIENTS. CBC (HEMOGRAM ONLY)2017-01-08 05:22:00 Test Item Value Reference Range Comments WHITE BLOOD CELL COUNT (BEAKER) (test arlc=836) 11.1 K/ L 4.0-10.0 RED BLOOD CELL COUNT (BEAKER) (test dtxi=935) 3.62 M/ L 4.00-5.00 HEMOGLOBIN (BEAKER) (test bqki=103) 12.2 GM/DL 12.0-15.0 HEMATOCRIT (BEAKER) (test rxfd=642) 36.3 % 36.0-45.0 MEAN CORPUSCULAR VOLUME (BEAKER) (test dgie=689) 101.0 fL 82.0-99.0 MEAN CORPUSCULAR HEMOGLOBIN (BEAKER) (test 33.9 pg 27.0-33.0 mcmq=858) MEAN CORPUSCULAR HEMOGLOBIN CONC (BEAKER) (test 33.7 GM/DL 32.0-36.0 naqt=523) RED CELL DISTRIBUTION WIDTH (BEAKER) (test 15.2 % 10.3-14.2 rggm=916) PLATELET COUNT (BEAKER) (test kewc=463) 201 K/CU MM 150-430 MEAN PLATELET VOLUME (BEAKER) (test kgmd=854) 7.6 fL 6.5-10.5 NUCLEATED RED BLOOD CELLS (BEAKER) (test 0 /100 WBC 0-0 pewu=310) 0.00CBC (HEMOGRAM ONLY)2017-01-07 05:01:00 Test Item Value Reference Range Comments WHITE BLOOD CELL COUNT (BEAKER) (test rktg=958) 5.8 K/ L 4.0-10.0 RED BLOOD CELL COUNT (BEAKER) (test olac=498) 3.68 M/ L 4.00-5.00 HEMOGLOBIN (BEAKER) (test eoty=459) 12.1 GM/DL 12.0-15.0 HEMATOCRIT (BEAKER) (test uwpe=206) 36.9 % 36.0-45.0 MEAN CORPUSCULAR VOLUME (BEAKER) (test oltu=811) 100.0 fL 82.0-99.0 MEAN CORPUSCULAR HEMOGLOBIN (BEAKER) (test 33.0 pg 27.0-33.0 illn=060) MEAN CORPUSCULAR HEMOGLOBIN CONC (BEAKER) (test 32.8 GM/DL 32.0-36.0 lleb=848) RED CELL DISTRIBUTION WIDTH (BEAKER) (test 13.5 % 10.3-14.2 yjsg=294) PLATELET COUNT (BEAKER) (test nikq=776) 204 K/CU MM 150-430 MEAN PLATELET VOLUME (BEAKER) (test rsbw=197) 7.3 fL 6.5-10.5 NUCLEATED RED BLOOD CELLS (BEAKER) (test 0 /100 WBC 0-0 ircj=176) [id number] 02:15:00 Test Item Value Reference Range Comments MAGNESIUM (BEAKER) (test zklq=315) 2.2 mg/dL 1.6-2.6 BASIC METABOLIC [id number] 02:15:00 Test Item Value Reference Range Comments SODIUM (BEAKER) (test 142 meq/L 136-145 xdim=372) POTASSIUM (BEAKER) (test 4.0 meq/L 3.5-5.1 wwsj=351) CHLORIDE (BEAKER) (test 110 meq/L 98-107 nyck=456) CO2 (BEAKER) (test 23 meq/L 22-29 gxqj=351) BLOOD UREA NITROGEN 21 mg/dL 7-21 (BEAKER) (test urcc=958) CREATININE (BEAKER) (test 1.02 mg/dL 0.57-1.25 wmmi=655) GLUCOSE RANDOM (BEAKER) 102 mg/dL 70-105 (test kbho=483) CALCIUM (BEAKER) (test 8.9 mg/dL 8.4-10.2 ahcw=197) EGFR (BEAKER) (test 51 mL/min/1.73 sq m ESTIMATED GFR IS NOT kouj=3680) ACCURATE CREATININE CLEARANCE IN PREDICTING GLOMERULAR FILTRATION RATE. ESTIMATED GFR IS NOT APPLICABLE FOR DIALYSIS PATIENTS. [id number] 02:02:00 Test Item Value Reference Range Comments PARTIAL THROMBOPLASTIN TIME (BEAKER) (test 67.1 seconds 22.5-36.0 bgwn=437) CBC W/PLT COUNT & AUTO [id number] 01:59:00 Test Item Value Reference Range Comments WHITE BLOOD CELL COUNT (BEAKER) (test wgoo=407) 5.2 K/ L 4.0-10.0 RED BLOOD CELL COUNT (BEAKER) (test hswb=363) 3.33 M/ L 4.00-5.00 HEMOGLOBIN (BEAKER) (test hnhs=852) 11.4 GM/DL 12.0-15.0 HEMATOCRIT (BEAKER) (test rpha=427) 33.5 % 36.0-45.0 MEAN CORPUSCULAR VOLUME (BEAKER) (test kioq=324) 101.0 fL 82.0-99.0 MEAN CORPUSCULAR HEMOGLOBIN (BEAKER) (test 34.4 pg 27.0-33.0 augc=615) MEAN CORPUSCULAR HEMOGLOBIN CONC (BEAKER) (test 34.1 GM/DL 32.0-36.0 vodc=107) RED CELL DISTRIBUTION WIDTH (BEAKER) (test 13.5 % 10.3-14.2 tcqh=117) PLATELET COUNT (BEAKER) (test cbap=970) 184 K/CU MM 150-430 MEAN PLATELET VOLUME (BEAKER) (test krrr=970) 7.0 fL 6.5-10.5 NUCLEATED RED BLOOD CELLS (BEAKER) (test 0 /100 WBC 0-0 zocm=552) NEUTROPHILS RELATIVE PERCENT (BEAKER) (test 49 % qmwk=807) LYMPHOCYTES RELATIVE PERCENT (BEAKER) (test 34 % eder=506) MONOCYTES RELATIVE PERCENT (BEAKER) (test 10 % tbgk=987) EOSINOPHILS RELATIVE PERCENT (BEAKER) (test 7 % wvou=123) BASOPHILS RELATIVE PERCENT (BEAKER) (test 0 % gysx=692) NEUTROPHILS ABSOLUTE COUNT (BEAKER) (test 2.52 K/ L 1.80-8.00 wqer=621) LYMPHOCYTES ABSOLUTE COUNT (BEAKER) (test 1.75 K/ L 1.48-4.50 ntec=719) MONOCYTES ABSOLUTE COUNT (BEAKER) (test 0.54 K/ L 0.00-1.30 wzqe=717) EOSINOPHILS ABSOLUTE COUNT (BEAKER) (test 0.34 K/ L 0.00-0.50 imgu=025) BASOPHILS ABSOLUTE COUNT (BEAKER) (test 0.02 K/ L 0.00-0.20 oeex=453) 0.00DIGOXIN [id number] 18:00:00 Test Item Value Reference Range Comments DIGOXIN LEVEL (BEAKER) (test mtqs=653) 0.4 ng/mL 0.8-2.0 TSH/FREE T4 IF [id number] 18:00:00 Test Item Value Reference Range Comments THYROID STIMULATING HORMONE (BEAKER) (test 1.47 uIU/mL 0.35-4.94 qdpb=347) [id number] 17:35:00 Test Item Value Reference Range Comments MAGNESIUM (BEAKER) (test vsvu=289) 2.4 mg/dL 1.6-2.6 Fasting lipid panelBASIC METABOLIC [id number] 17:35:00 Test Item Value Reference Range Comments SODIUM (BEAKER) (test 139 meq/L 136-145 evqu=880) POTASSIUM (BEAKER) (test 3.9 meq/L 3.5-5.1 ddwa=509) CHLORIDE (BEAKER) (test 105 meq/L 98-107 ziis=137) CO2 (BEAKER) (test 27 meq/L 22-29 xgud=386) BLOOD UREA NITROGEN 25 mg/dL 7-21 (BEAKER) (test qqza=453) CREATININE (BEAKER) (test 1.24 mg/dL 0.57-1.25 xzoj=366) GLUCOSE RANDOM (BEAKER) 91 mg/dL 70-105 (test qqzz=914) CALCIUM (BEAKER) (test 9.4 mg/dL 8.4-10.2 jdzh=065) EGFR (BEAKER) (test 41 mL/min/1.73 sq m ESTIMATED GFR IS NOT tukp=3628) ACCURATE CREATININE CLEARANCE IN PREDICTING GLOMERULAR FILTRATION RATE. ESTIMATED GFR IS NOT APPLICABLE FOR DIALYSIS PATIENTS. Fasting lipid panelLIPID [id number] 17:35:00 Test Item Value Reference Range Comments TRIGLYCERIDES (BEAKER) (test tvlc=024) 81 mg/dL CHOLESTEROL (BEAKER) (test shbn=637) 224 mg/dL HDL CHOLESTEROL (BEAKER) (test gvma=421) 96 mg/dL LDL CHOLESTEROL CALCULATED (BEAKER) (test 112 mg/dL jyqq=134) Triglyceride Reference Range: Low Risk <150 Borderline 150- 199 High Risk 200-499 Very High Risk >=500Cholesterol Reference Range: Low Risk <200 Borderline 200-239 High Risk > 240HDL Cholesterol Reference Range: Low Risk >=60 High Risk <40LDL Cholesterol Reference Range: Optimal <100 Near Optimal 100-129 Borderline 130-159 High 160-189 Very High >=190 Fasting lipid panelHEPATIC FUNCTION [id number] 17:35:00 Test Item Value Reference Range Comments TOTAL PROTEIN (BEAKER) (test jinw=716) 7.7 gm/dL 6.0-8.3 ALBUMIN (BEAKER) (test jvlt=5512) 3.9 g/dL 3.5-5.0 BILIRUBIN TOTAL (BEAKER) (test deov=007) 1.1 mg/dL 0.2-1.2 BILIRUBIN DIRECT (BEAKER) (test upnc=103) 0.5 mg/dL 0.1-0.5 ALKALINE PHOSPHATASE (BEAKER) (test wqgz=611) 120 U/L 40-150 AST (SGOT) (BEAKER) (test gtxq=366) 19 U/L 5-34 ALT (SGPT) (BEAKER) (test fsck=298) 19 U/L 6-55 Fasting lipid [id number] 17:24:00 Test Item Value Reference Range Comments PARTIAL THROMBOPLASTIN TIME (BEAKER) (test 37.0 seconds 22.5-36.0 xqih=368) Prior to initiating heparinPROTHROMBIN TIME/[id number] 17:23:00 Test Item Value Reference Range Comments PROTIME (BEAKER) (test gert=848) 14.3 seconds 11.7-14.7 INR (BEAKER) (test qfss=874) 1.1 <=5.9 RECOMMENDED COUMADIN/WARFARIN INR THERAPY RANGESSTANDARD DOSE: 2.0 - 3.0 Includes: PROPHYLAXIS forvenous thrombosis, systemic embolization; TREATMENT for venous thrombosis and/or pulmonary embolus.HIGH RISK: Target INR is 2.5-3.5 for patients with mechanical heart valves.Prior to initiating [id number] 17:23:00 Test Item Value Reference Range Comments PARTIAL THROMBOPLASTIN TIME (BEAKER) (test 36.6 seconds 22.5-36.0 yuqi=935) Prior to initiating heparinCBC W/PLT COUNT & AUTO [id number] 17: 20:00 Test Item Value Reference Range Comments WHITE BLOOD CELL COUNT (BEAKER) (test mkdl=412) 6.1 K/ L 4.0-10.0 RED BLOOD CELL COUNT (BEAKER) (test deib=285) 3.72 M/ L 4.00-5.00 HEMOGLOBIN (BEAKER) (test oqcc=439) 12.4 GM/DL 12.0-15.0 HEMATOCRIT (BEAKER) (test edvs=453) 37.4 % 36.0-45.0 MEAN CORPUSCULAR VOLUME (BEAKER) (test gydh=830) 101.0 fL 82.0-99.0 MEAN CORPUSCULAR HEMOGLOBIN (BEAKER) (test 33.5 pg 27.0-33.0 czos=954) MEAN CORPUSCULAR HEMOGLOBIN CONC (BEAKER) (test 33.2 GM/DL 32.0-36.0 tdfm=077) RED CELL DISTRIBUTION WIDTH (BEAKER) (test 13.5 % 10.3-14.2 mofy=756) PLATELET COUNT (BEAKER) (test ximg=482) 219 K/CU MM 150-430 MEAN PLATELET VOLUME (BEAKER) (test zuds=418) 7.0 fL 6.5-10.5 NUCLEATED RED BLOOD CELLS (BEAKER) (test 0 /100 WBC 0-0 bzrx=026) NEUTROPHILS RELATIVE PERCENT (BEAKER) (test 51 % unuk=448) LYMPHOCYTES RELATIVE PERCENT (BEAKER) (test 33 % cfid=670) MONOCYTES RELATIVE PERCENT (BEAKER) (test 10 % fpaf=903) EOSINOPHILS RELATIVE PERCENT (BEAKER) (test 5 % eazm=562) BASOPHILS RELATIVE PERCENT (BEAKER) (test 1 % rfrz=253) NEUTROPHILS ABSOLUTE COUNT (BEAKER) (test 3.09 K/ L 1.80-8.00 vsen=421) LYMPHOCYTES ABSOLUTE COUNT (BEAKER) (test 1.99 K/ L 1.48-4.50 zagp=658) MONOCYTES ABSOLUTE COUNT (BEAKER) (test 0.62 K/ L 0.00-1.30 msxz=859) EOSINOPHILS ABSOLUTE COUNT (BEAKER) (test 0.31 K/ L 0.00-0.50 cyig=661) BASOPHILS ABSOLUTE COUNT (BEAKER) (test 0.08 K/ L 0.00-0.20 jcpa=132) PLATELET [id number] 17:16:00 Test Item Value Reference Range Comments PLATELET COUNT (BEAKER) (test ztat=322) 219 K/CU MM 150-430 BASIC METABOLIC [id number] 04:55:00 Test Item Value Reference Range Comments SODIUM (BEAKER) (test 141 meq/L 136-145 xmpo=121) POTASSIUM (BEAKER) (test 3.3 meq/L 3.5-5.1 abnw=106) CHLORIDE (BEAKER) (test 104 meq/L 98-107 kkip=857) CO2 (BEAKER) (test 28 meq/L 22-29 kulz=252) BLOOD UREA NITROGEN 14 mg/dL 7-21 (BEAKER) (test gsbs=393) CREATININE (BEAKER) (test 0.80 mg/dL 0.57-1.25 azsc=870) GLUCOSE RANDOM (BEAKER) 97 mg/dL 70-105 (test meyr=982) CALCIUM (BEAKER) (test 8.9 mg/dL 8.4-10.2 hyaq=246) EGFR (BEAKER) (test 68 mL/min/1.73 sq m ESTIMATED GFR IS NOT glih=8303) ACCURATE CREATININE CLEARANCE IN PREDICTING GLOMERULAR FILTRATION RATE. ESTIMATED GFR IS NOT APPLICABLE FOR DIALYSIS PATIENTS. CBC (HEMOGRAM ONLY)2016-10-03 04:47:00 Test Item Value Reference Range Comments WHITE BLOOD CELL COUNT (BEAKER) (test bdwq=643) 7.8 K/ L 4.0-10.0 RED BLOOD CELL COUNT (BEAKER) (test ycof=639) 3.12 M/ L 4.00-5.00 HEMOGLOBIN (BEAKER) (test jjto=317) 11.2 GM/DL 12.0-15.0 HEMATOCRIT (BEAKER) (test tnqa=999) 32.5 % 36.0-45.0 MEAN CORPUSCULAR VOLUME (BEAKER) (test hocz=924) 104.0 fL 82.0-99.0 MEAN CORPUSCULAR HEMOGLOBIN (BEAKER) (test 35.8 pg 27.0-33.0 glhd=399) MEAN CORPUSCULAR HEMOGLOBIN CONC (BEAKER) (test 34.4 GM/DL 32.0-36.0 gfdj=359) RED CELL DISTRIBUTION WIDTH (BEAKER) (test 12.8 % 10.3-14.2 sqsi=309) PLATELET COUNT (BEAKER) (test gabb=590) 190 K/CU MM 150-430 MEAN PLATELET VOLUME (BEAKER) (test wulu=810) 7.4 fL 6.5-10.5 NUCLEATED RED BLOOD CELLS (BEAKER) (test 0 /100 WBC 0-0 dnoc=234) 0.00PT/[id number] 04:41:00 Test Item Value Reference Range Comments PROTIME (BEAKER) (test ikin=258) 13.1 seconds 11.7-14.7 INR (BEAKER) (test ocjd=831) 1.0 <=5.9 PARTIAL THROMBOPLASTIN TIME (BEAKER) (test 28.1 seconds 22.5-36.0 mokr=048) RECOMMENDED COUMADIN/WARFARIN INR THERAPY RANGESSTANDARD DOSE: 2.0 - 3.0 Includes: PROPHYLAXIS forvenous thrombosis, systemic embolization; TREATMENT for venous thrombosis and/or pulmonary embolus.HIGH RISK: Target INR is 2.5-3.5 for patients with mechanical heart valves.CREATINE KINASE (CK), TOTAL AND [id number] 04:53:00 Test Item Value Reference Range Comments CREATINE KINASE TOTAL (BEAKER) (test jlob=652) 36 U/L 29-200 CREATINE KINASE-MB (BEAKER) (test yfyu=288) 1.6 ng/mL 0.0-6.6 CREATINE KINASE-MB INDEX (BEAKER) (test moqe=573) 4.4 % Effective 06/14/2014: CK-MB Reference Range ChangeNew: 0.0-6.6 Previous: 0.0- 4.9CK-MB Reference Range:<6.7 Normal6.7-10.0 Borderline>10.0 AbnormalTROPONIN [id number] 04:53:00 Test Item Value Reference Range Comments TROPONIN I (BEAKER) (test xzlj=617) 0.03 ng/mL 0.00-0.03 Effective 06/14/2014: Reference Range [...] acute neurological disease, and persistent tachyarrhythmia.BASIC METABOLIC [id number] 04:46:00 Test Item Value Reference Range Comments SODIUM (BEAKER) (test 139 meq/L 136-145 qiec=088) POTASSIUM (BEAKER) (test 3.7 meq/L 3.5-5.1 tfub=395) CHLORIDE (BEAKER) (test 104 meq/L 98-107 ctqp=842) CO2 (BEAKER) (test 27 meq/L 22-29 pjka=311) BLOOD UREA NITROGEN 14 mg/dL 7-21 (BEAKER) (test ixhg=161) CREATININE (BEAKER) (test 0.82 mg/dL 0.57-1.25 wwlp=367) GLUCOSE RANDOM (BEAKER) 102 mg/dL 70-105 (test tznb=494) CALCIUM (BEAKER) (test 9.1 mg/dL 8.4-10.2 eigw=798) EGFR (BEAKER) (test 66 mL/min/1.73 sq m ESTIMATED GFR IS NOT fehb=9147) ACCURATE CREATININE CLEARANCE IN PREDICTING GLOMERULAR FILTRATION RATE. ESTIMATED GFR IS NOT APPLICABLE FOR DIALYSIS PATIENTS. PT/[id number] 04:41:00 Test Item Value Reference Range Comments PROTIME (BEAKER) (test liqv=870) 13.5 seconds 11.7-14.7 INR (BEAKER) (test ywwc=017) 1.0 <=5.9 PARTIAL THROMBOPLASTIN TIME (BEAKER) (test 33.1 seconds 22.5-36.0 lluw=688) RECOMMENDED COUMADIN/WARFARIN INR THERAPY RANGESSTANDARD DOSE: 2.0 - 3.0 Includes: PROPHYLAXIS forvenous thrombosis, systemic embolization; TREATMENT for venous thrombosis and/or pulmonary embolus.HIGH RISK: Target INR is 2.5-3.5 for patients with mechanical heart valves.CBC (HEMOGRAM ONLY)2016-10-02 04:33:00 Test Item Value Reference Range Comments WHITE BLOOD CELL COUNT (BEAKER) (test twnf=318) 9.4 K/ L 4.0-10.0 RED BLOOD CELL COUNT (BEAKER) (test eqln=775) 3.07 M/ L 4.00-5.00 HEMOGLOBIN (BEAKER) (test kpyc=968) 11.0 GM/DL 12.0-15.0 HEMATOCRIT (BEAKER) (test dxzd=117) 31.9 % 36.0-45.0 MEAN CORPUSCULAR VOLUME (BEAKER) (test tgpo=873) 104.0 fL 82.0-99.0 MEAN CORPUSCULAR HEMOGLOBIN (BEAKER) (test 36.0 pg 27.0-33.0 mzsp=348) MEAN CORPUSCULAR HEMOGLOBIN CONC (BEAKER) (test 34.6 GM/DL 32.0-36.0 cfnf=673) RED CELL DISTRIBUTION WIDTH (BEAKER) (test 12.7 % 10.3-14.2 vqwh=626) PLATELET COUNT (BEAKER) (test vgdn=646) 205 K/CU MM 150-430 MEAN PLATELET VOLUME (BEAKER) (test avgi=056) 7.3 fL 6.5-10.5 NUCLEATED RED BLOOD CELLS (BEAKER) (test 0 /100 WBC 0-0 uufc=494) 0.00TSH/FREE T4 IF [id number] 19:30:00 Test Item Value Reference Range Comments THYROID STIMULATING HORMONE (BEAKER) (test 0.43 uIU/mL 0.35-4.94 gpep=653) CREATINE KINASE (CK), TOTAL AND [id number] 19:14:00 Test Item Value Reference Range Comments CREATINE KINASE TOTAL (BEAKER) (test vjnl=464) 53 U/L 29-200 CREATINE KINASE-MB (BEAKER) (test cjzv=112) 2.6 ng/mL 0.0-6.6 CREATINE KINASE-MB INDEX (BEAKER) (test xrlo=890) 4.9 % Effective 06/14/2014: CK-MB Reference Range ChangeNew: 0.0-6.6 Previous: 0.0- 4.9CK-MB Reference Range:<6.7 Normal6.7-10.0 Borderline>10.0 AbnormalTROPONIN [id number] 19:14:00 Test Item Value Reference Range Comments TROPONIN I (BEAKER) (test kyjm=281) 0.01 ng/mL 0.00-0.03 Effective 06/14/2014: Reference Range [...] renalfailure, acidosis, acute neurological disease, and persistent tachyarrhythmia.[id number] 15:20: 00 Test Item Value Reference Range Comments MAGNESIUM (BEAKER) (test lidw=220) 1.9 mg/dL 1.6-2.6 BASIC METABOLIC [id number] 15:20:00 Test Item Value Reference Range Comments SODIUM (BEAKER) (test 141 meq/L 136-145 kylt=538) POTASSIUM (BEAKER) (test 3.9 meq/L 3.5-5.1 arvp=830) CHLORIDE (BEAKER) (test 108 meq/L 98-107 opeh=102) CO2 (BEAKER) (test 25 meq/L 22-29 vrwb=658) BLOOD UREA NITROGEN 14 mg/dL 7-21 (BEAKER) (test jkfw=794) CREATININE (BEAKER) (test 0.84 mg/dL 0.57-1.25 hpsc=528) GLUCOSE RANDOM (BEAKER) 130 mg/dL 70-105 (test qwcn=040) CALCIUM (BEAKER) (test 8.8 mg/dL 8.4-10.2 csmq=425) EGFR (BEAKER) (test 64 mL/min/1.73 sq m ESTIMATED GFR IS NOT znmd=1953) ACCURATE CREATININE CLEARANCE IN PREDICTING GLOMERULAR FILTRATION RATE. ESTIMATED GFR IS NOT APPLICABLE FOR DIALYSIS PATIENTS. CBC (HEMOGRAM ONLY)2016-10-01 14:52:00 Test Item Value Reference Range Comments WHITE BLOOD CELL COUNT (BEAKER) (test tmff=085) 10.1 K/ L 4.0-10.0 RED BLOOD CELL COUNT (BEAKER) (test znpw=159) 3.40 M/ L 4.00-5.00 HEMOGLOBIN (BEAKER) (test nmfw=367) 11.9 GM/DL 12.0-15.0 HEMATOCRIT (BEAKER) (test antz=348) 34.6 % 36.0-45.0 MEAN CORPUSCULAR VOLUME (BEAKER) (test lzzz=305) 102.0 fL 82.0-99.0 MEAN CORPUSCULAR HEMOGLOBIN (BEAKER) (test 35.1 pg 27.0-33.0 muli=521) MEAN CORPUSCULAR HEMOGLOBIN CONC (BEAKER) (test 34.5 GM/DL 32.0-36.0 bnpg=467) RED CELL DISTRIBUTION WIDTH (BEAKER) (test 13.5 % 10.3-14.2 klml=300) PLATELET COUNT (BEAKER) (test vnuh=266) 204 K/CU MM 150-430 MEAN PLATELET VOLUME (BEAKER) (test khhl=480) 7.4 fL 6.5-10.5 NUCLEATED RED BLOOD CELLS (BEAKER) (test 0 /100 WBC 0-0 qsna=139) 0.00BASIC METABOLIC [id number] 11:00:00 Test Item Value Reference Range Comments SODIUM (BEAKER) (test 142 meq/L 136-145 phji=295) POTASSIUM (BEAKER) (test 4.5 meq/L 3.5-5.1 uqgz=481) CHLORIDE (BEAKER) (test 103 meq/L 98-107 yrqn=782) CO2 (BEAKER) (test 28 meq/L 22-29 oqfg=360) BLOOD UREA NITROGEN 28 mg/dL 7-21 (BEAKER) (test kqte=315) CREATININE (BEAKER) (test 1.04 mg/dL 0.57-1.25 wtyy=722) GLUCOSE RANDOM (BEAKER) 98 mg/dL 70-105 (test wzub=728) CALCIUM (BEAKER) (test 9.8 mg/dL 8.4-10.2 lmwp=898) EGFR (BEAKER) (test 50 mL/min/1.73 sq m ESTIMATED GFR IS NOT pszy=4618) ACCURATE CREATININE CLEARANCE IN PREDICTING GLOMERULAR FILTRATION RATE. ESTIMATED GFR IS NOT APPLICABLE FOR DIALYSIS PATIENTS. CBC W/PLT COUNT & AUTO [id number] 10:59:00 Test Item Value Reference Range Comments WHITE BLOOD CELL COUNT (BEAKER) (test iiik=543) 7.0 K/ L 4.0-10.0 RED BLOOD CELL COUNT (BEAKER) (test avsc=563) 3.77 M/ L 4.00-5.00 HEMOGLOBIN (BEAKER) (test piie=391) 13.2 GM/DL 12.0-15.0 HEMATOCRIT (BEAKER) (test lwnk=082) 38.5 % 36.0-45.0 MEAN CORPUSCULAR VOLUME (BEAKER) (test lscn=871) 102.0 fL 82.0-99.0 MEAN CORPUSCULAR HEMOGLOBIN (BEAKER) (test 34.9 pg 27.0-33.0 ijgq=951) MEAN CORPUSCULAR HEMOGLOBIN CONC (BEAKER) (test 34.2 GM/DL 32.0-36.0 bowh=651) RED CELL DISTRIBUTION WIDTH (BEAKER) (test 13.6 % 10.3-14.2 oxnt=210) PLATELET COUNT (BEAKER) (test nuld=808) 233 K/CU MM 150-430 MEAN PLATELET VOLUME (BEAKER) (test yfjg=906) 7.3 fL 6.5-10.5 NUCLEATED RED BLOOD CELLS (BEAKER) (test 0 /100 WBC 0-0 qsbc=704) NEUTROPHILS RELATIVE PERCENT (BEAKER) (test 60 % nkvm=344) LYMPHOCYTES RELATIVE PERCENT (BEAKER) (test 27 % ywdc=554) MONOCYTES RELATIVE PERCENT (BEAKER) (test 9 % jfmg=731) EOSINOPHILS RELATIVE PERCENT (BEAKER) (test 3 % othi=692) BASOPHILS RELATIVE PERCENT (BEAKER) (test 1 % kjwy=608) NEUTROPHILS ABSOLUTE COUNT (BEAKER) (test 4.20 K/ L 1.80-8.00 yvdy=885) LYMPHOCYTES ABSOLUTE COUNT (BEAKER) (test 1.92 K/ L 1.48-4.50 kkan=155) MONOCYTES ABSOLUTE COUNT (BEAKER) (test 0.60 K/ L 0.00-1.30 kmlj=676) EOSINOPHILS ABSOLUTE COUNT (BEAKER) (test 0.23 K/ L 0.00-0.50 xofc=183) BASOPHILS ABSOLUTE COUNT (BEAKER) (test 0.07 K/ L 0.00-0.20 zzsz=505) 0.00PT/[id number] 10:58:00 Test Item Value Reference Range Comments PROTIME (BEAKER) (test oymz=806) 12.7 seconds 11.7-14.7 INR (BEAKER) (test zadg=734) 1.0 <=5.9 PARTIAL THROMBOPLASTIN TIME (BEAKER) (test 29.7 seconds 22.5-36.0 mnpg=590) RECOMMENDED COUMADIN/WARFARIN INR THERAPY RANGESSTANDARD DOSE: 2.0 - 3.0 Includes: PROPHYLAXIS forvenous thrombosis, systemic embolization; TREATMENT for venous thrombosis and/or pulmonary embolus.HIGH RISK: Target INR is 2.5-3.5 for patients with mechanical heart valves.
--- OUTSIDE RECORDS SUMMARY | 2018-06-02 19:54 | XMS REPORT | Clinical Summary ---
:1930 Author Organization [facility] Address [address] [place] [address] Care Team Providers Name Role Phone Hernan [...] INFLUENZA VACCINE 04/27/2018 Implants Implanted Type Area Radiology Receptionist Device Shelf Model / Identifier Expiration Serial / Lot Date Lead Attain Performa 78cm [id number] - [id number] Cardiovascular N/A: [employer] :CARD 10/03/2018 [id number] / Implanted: Qty: 1 on 01/07/2017 by Satya Perales MD Chest RHY: DISEASE [id number] / MGT Ld Endocardial Df4 Act 55 [id number] - [id number] Defibrillators N/A: [employer]:CARD 10/10/2018 [id number] / Implanted: Qty: 1 on 01/07/2017 by Satya Perales MD Chest RHY: DISEASE [id number] / MGT Dev Amplia Quad Head Mechanic-D Surescn [id number] - [id number] Defibrillators N/A: [employer]:CARD 04/24/2018 [id number] / Implanted: Qty: 1 on 01/07/2017 by Satya Perales MD Chest RHY:PACING SYS [id number] / Grft Hemshld Dbl Silvio 0.3x3.0in [id number] - [id number] Graft/Patch Right: GETINGE 04/26/2021 [id number] / Implanted: Qty: 1 on 10/01/2016 by Miguelangel Stack MD Neck IND:MAQUET:CV [id number] / [id number] Lead Pacemkr Rosa Chew 45x1 [id number] - [id number] Pacemaker Lead N/A: [employer]:CARD 09/23/2018 [id number] / Implanted: Qty: 1 on 01/07/2017 by Satya Perales MD Chest RHY: DISEASE [id number] / MGT Results Not on fileafter 06/01/2017 Insurance Payer Benefit Plan / Group Subscriber ID Type Phone Address CARE IMPROVEMENT MEDICARE MGD CARE IMPROVEMENT PLUS xxxxxxxxx CARE DR dinora Hazel (Home) [address] [place] [address] Advance Directives For more information, please contact:[address] [phone] Code Status Date Activated Date Inactivated Comments Full Code 01/07/2017 1:15 PM 01/08/2017 4:34 PM This code status was determined by: Patient Full Code 10/01/2016 11:49 AM 10/03/2016 8:34 PM This code status was determined by: Patient Full Code 09/30/2016 6:24 PM 10/01/2016 11:49 AM This code status was determined by: Patient
[2018-06-02] MEDS ORDERED: NA CHLORIDE 0.9% 1,000 ML ONE (20:29)
[2018-06-02 21:17] LABS: Absolute Lymphocytes (CBC) 2.7 K/uL (0.7-4.9); Absolute Monocytes 0.4 K/uL (0.1-1.3); Absolute Neutrophil 5.7 K/uL (1.8-8.0); Basophils % 2.9 % (0-1.3); Eosinophils % 5.7 % (0-4.4); Hematocrit 28.7 % (36.0-45.0); MCH 28.8 pg (27.0-35.0); MCV 88.4 fL (80-100); Monocytes % 3.7 % (3.3-12.3); RBC Red Blood Cell Count 3.24 M/uL (3.86-4.86)
[2018-06-02 21:26] LABS: Albumin 3.3 g/dL (3.4-5.0); Bilirubin Direct 0.1 mg/dL (0-0.2); Bilirubin Total 0.3 mg/dL (0.2-1.0); Magnesium 2.2 mg/dL (1.8-2.4); Potassium 4.5 mmol/L (3.5-5.1); Protein, Total 6.5 g/dL (6.4-8.2); Troponin (Emerg Dept Use Only) 0.02 ng/mL (0.0-0.045)
--- NOTE | 2018-06-02 21:37 | RAD REPORT ---
EXAM DESCRIPTION: RAD - Chest Single View - 06/02/2018 9:03 pm CLINICAL HISTORY: COUGH Chest pain. COMPARISON: Chest Single View dated 05/12/2018; Chest Single View dated 10/27/2015; Chest Single View dated 10/26/2015; CHEST PA AND LAT 2 VIEW dated 05/17/2014 FINDINGS: Portable technique limits examination quality. Mild interstitial pulmonary edema is present. The heart is moderately enlarged in size with a multi l ead pacer/defibrillator device noted. Chronic elevation left hemidiaphragmatic leaflet seen. IMPRESSION: Mild CHF.
--- NOTE | 2018-06-02 21:56 | EDPHYS ---
Physician Documentation [facility] Name: Nikky Ocampo Age: 88 yrs Sex: Female : 1930 Arrival Date: 06/02/2018 Time: 19:55 Bed 7 Private MD: Hernan Richmond E ED Physician Mahesh Macias HPI: 06/02 20:39 This 88 yrs old Female presents to ER via Wheelchair with complaints of High zeynep Potassium. 20:39 told potassium high on mda labs. Onset: The symptoms/episode began/occurred today. zeynep Severity of symptoms: At their worst the symptoms were very mild in the emergency department the symptoms are unchanged. The patient has not experienced similar symptoms in the past. Historical: - Allergies: 20:11 Bosulif; lp1 20:11 Codeine; lp1 - Home Meds: 20:11 Allergy Medicine Oral [Active]; aspercreme lotion 10% PRN [Active]; Bactrim DS 800-160 lp1 mg Oral tab 1 tab q12 hours x 10 days [Active]; Bosulif 100 mg Oral tab 3 tabs once daily [Active]; cranberry Oral [Active]; dasatinib Oral [Active]; digoxin 125 mcg Oral tab 1 tab Every other day [Active]; Econazole Nitrate Cream [Active]; Eliquis 5.5 Oral 1 tab 2 times per day [Active]; Estrace CREAM Oral [Active]; fluconazole Oral [Active]; fluticasone nasal [Active]; gabapentin 400 mg Oral cap 2 cap 4x per day [Active]; levothyroxine 50 mcg tab 1 tab once daily [Active]; metoprolol succinate 25 mg Oral Tb24 twice a day [Active]; preser vision [Active]; ranitidine HCl 150 mg Oral cap once daily [Active]; Restasis ophthalmic [Active]; spironolactone 50 mg Oral tab 1 tab once daily [Active]; Spironolactone Oral [Active]; tramadol 50 mg Oral tab 1 tab once a day [Active]; - PMHx: 20:11 CHF; Chronic leukemia; colon cancer; Hypertension; Pacemaker; lp1 - PSHx: 20:11 Carotid surgery; lp1 - Immunization history:: Adult Immunizations up to date. - Social history:: Smoking status: Patient/guardian denies using tobacco. - Ebola Screening: : No symptoms or risks identified at this time. - Family history:: not pertinent. ROS: 20:39 Constitutional: Negative for fever, chills, and weight loss, Eyes: Negative for injury, zeynep pain, redness, and discharge, ENT: Negative for injury, pain, and discharge, Neck: Negative for injury, pain, and swelling, Cardiovascular: Negative for chest pain, palpitations, and edema, Respiratory: Negative for shortness of breath, cough, wheezing, and pleuritic chest pain, Abdomen/GI: Negative for abdominal pain, nausea, vomiting, diarrhea, and constipation, Back: Negative for injury and pain, : Negative for injury, bleeding, discharge, and swelling, MS/Extremity: Negative for injury and deformity, Skin: Negative for injury, rash, and discoloration, Neuro: Negative for headache, weakness, numbness, tingling, and seizure, Psych: Negative for depression, anxiety, suicide ideation, homicidal ideation, and hallucinations, Allergy/Immunology: Negative for hives, rash, and allergies, Endocrine: Negative for neck swelling, polydipsia, polyuria, polyphagia, and marked weight changes, Hematologic/Lymphatic: Negative for swollen nodes, abnormal bleeding, and unusual bruising. Exam: 20:41 Constitutional: This is a well developed, well nourished patient who is awake, alert, zeynep and in no acute distress. Head/Face: Normocephalic, atraumatic. Eyes: Pupils equal round and reactive to light, extra-ocular motions intact. Lids and lashes normal. Conjunctiva and sclera are non-icteric and not injected. Cornea within normal limits. Periorbital areas with no swelling, redness, or edema. ENT: Nares patent. No nasal discharge, no septal abnormalities noted. Tympanic membranes are normal and external auditory canals are clear. Oropharynx with no redness, swelling, or masses, exudates, or evidence of obstruction, uvula midline. Mucous membranes moist. Neck: Trachea midline, no thyromegaly or masses palpated, and no cervical lymphadenopathy. Supple, full range of motion without nuchal rigidity, or vertebral point tenderness. No Meningismus. Chest/axilla: Normal chest wall appearance and motion. Nontender with no deformity. No lesions are appreciated. Cardiovascular: Regular rate and rhythm with a normal S1 and S2. No gallops, murmurs, or rubs. Normal PMI, no JVD. No pulse deficits. Respiratory: Lungs have equal breath sounds bilaterally, clear to auscultation and percussion. No rales, rhonchi or wheezes noted. No increased work of breathing, no retractions or nasal flaring. Abdomen/GI: Soft, non-tender, with normal bowel sounds. No distension or tympany. No guarding or rebound. No evidence of tenderness throughout. Back: No spinal tenderness. No costovertebral tenderness. Full range of motion. Skin: Warm, dry with normal turgor. Normal color with no rashes, no lesions, and no evidence of cellulitis. MS/ Extremity: Pulses equal, no cyanosis. Neurovascular intact. Full, normal range of motion. Neuro: Awake and alert, GCS 15, oriented to person, place, time, and situation. Cranial nerves II-XII grossly intact. Motor strength 5/5 in all extremities. Sensory grossly intact. Cerebellar exam normal. Normal gait. Psych: Awake, alert, with orientation to person, place and time. Behavior, mood, and affect are within normal limits. Vital Signs: 20:07 BP 128 / 57; Pulse 67; Resp 18; Temp 98.5(O); Pulse Ox 99% on R/A; Weight 54.43 kg; lp1 Height 5 ft. 5 in. (165.10 cm); Pain 0/10; 21:07 BP 111 / 45; Pulse 60; Resp 17 S; Pulse Ox 99% on R/A; jd3 21:34 BP 117 / 46; Pulse 56; Resp 17 S; Pulse Ox 99% on R/A; jd3 22:29 BP 126 / 57; Pulse 59; Resp 16 S; Pulse Ox 97% on R/A; jd3 20:07 Body Mass Index 19.97 (54.43 kg, 165.10 cm) lp1 MDM: 20:00 Patient medically screened. [facility] 20:41 Data reviewed: vital signs, nurses notes, lab test result(s), EKG, radiologic studies, zeynep plain films. 06/02 20:10 Order name: Basic Metabolic Panel; Complete Time: 21:34 [facility] 06/02 20:10 Order name: CBC with Diff [facility] 06/02 20:10 Order name: LFT's; Complete Time: 21:34 [facility] 06/02 20:10 Order name: Magnesium; Complete Time: 21:34 [facility] 06/02 20:10 Order name: NT PRO-BNP; Complete Time: 21:34 [facility] 06/02 20:10 Order name: PT-INR [facility] 06/02 20:10 Order name: Troponin (emerg Dept Use Only); Complete Time: 21:34 [facility] 06/02 20:10 Order name: XRAY Chest (1 view); Complete Time: 21:55 [facility] 06/02 20:10 Order name: EKG; Complete Time: 20:12 [facility] 06/02 20:10 Order name: Urine Culture [facility] 06/02 20:26 Order name: Digoxin [facility] 06/02 21:42 Order name: CBC Smear Scan [facility] 06/02 22:19 Order name: Urine Dipstick--Ancillary (enter results) [place] 06/02 20:10 Order name: Cardiac monitoring; Complete Time: 20:58 [facility] 06/02 20:10 Order name: EKG - Nurse/Tech; Complete Time: 20:58 [facility] 06/02 20:10 Order name: IV Saline Lock; Complete Time: 20:58 [facility] 06/02 20:10 Order name: Labs collected and sent; Complete Time: 20:58 [facility] 06/02 20:10 Order name: O2 Per Protocol; Complete Time: 20:20 [facility] 06/02 20:10 Order name: O2 Sat Monitoring; Complete Time: 20:20 [facility] Administered Medications: 20:57 Drug: NS 0.9% 1000 ml Route: IV; Rate: 125 ml/hr; Site: right antecubital; jd3 23:23 Follow up: Response: No adverse reaction; IV Status: Completed infusion jd3 Disposition: 06/02/18 21:56 Discharged to Home. Impression: Cardiomegaly, Unspecified combined systolic (congestive) and diastolic (congestive) heart failure. - Condition is Stable. - Discharge Instructions: Heart Failure, Hyperkalemia, Hyperkalemia, [id number], Heart Failure, Znov-[id number]. - Medication Reconciliation Form, Thank You Letter, Antibiotic Education, Prescription Opioid Use form. - Follow up: Hernan Richmond; When: 2 - 3 days; Reason: Recheck today's complaints, Continuance of care, Re-evaluation by your physician. - Problem is new. - Symptoms have improved. Signatures: Dispatcher [employer] EDMahesh Stevens MD MD zeynep Ngo, Sandra, RN RN lp1 Tha Velez RN RN jd3 Corrections: (The following items were deleted from the chart) 23:24 21:56 06/02/2018 21:56 Discharged to Home. Impression: Cardiomegaly; Unspecified jd3 combined systolic (congestive) and diastolic (congestive) heart failure. Condition is Stable. Discharge Instructions: Heart Failure, Hyperkalemia, Hyperkalemia, [id number], Heart Failure, [id number]. Forms are Medication Reconciliation Form, Thank You Letter, Antibiotic Education, Prescription Opioid Use. Follow up: Hernan Richmond; When: 2 - 3 days; Reason: Recheck today's complaints, Continuance of care, Re-evaluation by your physician. Problem is new. Symptoms have improved. zeynep
--- NOTE | 2018-06-02 21:56 | ER ---
Nurse's Notes [facility] Name: Nikky Ocampo Age: 88 yrs Sex: Female : 1930 Arrival Date: 06/02/2018 Time: 19:55 Bed 7 Private MD: Hernan Richmond E Diagnosis: Cardiomegaly;Unspecified combined systolic (congestive) and diastolic (congestive) heart failure Presentation: 06/02 20:05 Presenting complaint: Patient states: Follow-up appt today after previous admission lp1 over weekend receiving 4 blood transfusions for chronic anemia; States notified to go to ER for high Potassium level. Transition of care: patient was not received from another setting of care. Onset of symptoms was June 02, 2018. Risk Assessment: Do you want to hurt yourself or someone else? Patient reports no desire to harm self or others. Initial Sepsis Screen: Does the patient meet any 2 criteria? No. Patient's initial sepsis screen is negative. Does the patient have a suspected source of infection? No. Patient's initial sepsis screen is negative. Care prior to arrival: None. 20:05 Method Of Arrival: Wheelchair lp1 20:05 Acuity: TASIA 3 lp1 Historical: - Allergies: 20:11 Bosulif; lp1 20:11 Codeine; lp1 - Home Meds: 20:11 Allergy Medicine Oral [Active]; aspercreme lotion 10% PRN [Active]; Bactrim DS 800-160 lp1 mg Oral tab 1 tab q12 hours x 10 days [Active]; Bosulif 100 mg Oral tab 3 tabs once daily [Active]; cranberry Oral [Active]; dasatinib Oral [Active]; digoxin 125 mcg Oral tab 1 tab Every other day [Active]; Econazole Nitrate Cream [Active]; Eliquis 5.5 Oral 1 tab 2 times per day [Active]; Estrace CREAM Oral [Active]; fluconazole Oral [Active]; fluticasone nasal [Active]; gabapentin 400 mg Oral cap 2 cap 4x per day [Active]; levothyroxine 50 mcg tab 1 tab once daily [Active]; metoprolol succinate 25 mg Oral Tb24 twice a day [Active]; preser vision [Active]; ranitidine HCl 150 mg Oral cap once daily [Active]; Restasis ophthalmic [Active]; spironolactone 50 mg Oral tab 1 tab once daily [Active]; Spironolactone Oral [Active]; tramadol 50 mg Oral tab 1 tab once a day [Active]; - PMHx: 20:11 CHF; Chronic leukemia; colon cancer; Hypertension; Pacemaker; lp1 - PSHx: 20:11 Carotid surgery; lp1 - Immunization history:: Adult Immunizations up to date. - Social history:: Smoking status: Patient/guardian denies using tobacco. - Ebola Screening: : No symptoms or risks identified at this time. - Family history:: not pertinent. Screenin:17 Abuse screen: Denies threats or abuse. Nutritional screening: No deficits noted. jd3 Tuberculosis screening: No symptoms or risk factors identified. Fall Risk Ambulatory Aid- None/Bed Rest/Nurse Assist (0 pts). Gait- Normal/Bed Rest/Wheelchair (0 pts) Mental Status- Oriented to own ability (0 pts). Total Wharton Fall Scale indicates No Risk (0-24 pts). Assessment: 20:14 General: Appears in no apparent distress. uncomfortable, Behavior is calm, cooperative, jd3 appropriate for age, Reports was called by doctor for a high potassium level. Pain: Denies pain. Neuro: Level of Consciousness is awake, alert, obeys commands, Oriented to person, place, time, situation, Appropriate for age. Cardiovascular: Denies chest pain, Capillary refill < 3 seconds Patient's skin is warm and dry. Respiratory: Airway is patent Respiratory effort is even, unlabored, Respiratory pattern is regular, symmetrical, Denies shortness of breath. GI: Abdomen is round non-distended, Patient currently denies abdominal pain. : No signs and/or symptoms were reported regarding the genitourinary system. EENT: No signs and/or symptoms were reported regarding the EENT system. Derm: Skin is intact, Skin is dry, Skin is normal, Skin temperature is warm. Musculoskeletal: Circulation, motion, and sensation intact. Range of motion: intact in all extremities. 21:07 Reassessment: Patient appears in no apparent distress at this time. No changes from jd3 previously documented assessment. Patient and/or family updated on plan of care and expected duration. Pain level reassessed. Patient is alert, oriented x 3, equal unlabored respirations, skin warm/dry/pink. 21:34 Reassessment: Patient appears in no apparent distress at this time. No changes from jd3 previously documented assessment. Patient and/or family updated on plan of care and expected duration. Pain level reassessed. Patient is alert, oriented x 3, equal unlabored respirations, skin warm/dry/pink. 22:30 Reassessment: Patient appears in no apparent distress at this time. No changes from jd3 previously documented assessment. Patient and/or family updated on plan of care and expected duration. Pain level reassessed. Patient is alert, oriented x 3, equal unlabored respirations, skin warm/dry/pink. 23:23 Reassessment: Patient appears in no apparent distress at this time. No changes from jd3 previously documented assessment. Patient and/or family updated on plan of care and expected duration. Pain level reassessed. Patient is alert, oriented x 3, equal unlabored respirations, skin warm/dry/pink. Vital Signs: 20:07 BP 128 / 57; Pulse 67; Resp 18; Temp 98.5(O); Pulse Ox 99% on R/A; Weight 54.43 kg; lp1 Height 5 ft. 5 in. (165.10 cm); Pain 0/10; 21:07 BP 111 / 45; Pulse 60; Resp 17 S; Pulse Ox 99% on R/A; jd3 21:34 BP 117 / 46; Pulse 56; Resp 17 S; Pulse Ox 99% on R/A; jd3 22:29 BP 126 / 57; Pulse 59; Resp 16 S; Pulse Ox 97% on R/A; jd3 20:07 Body Mass Index 19.97 (54.43 kg, 165.10 cm) lp1 ED Course: 19:55 Patient arrived in ED. ds1 19:55 Hernan Richmond MD is Private Physician. ds1 20:00 Tha Velez RN is Primary Nurse. jd3 20:00 Mahesh Macias MD is Attending Physician. zeynep 20:07 Triage completed. lp1 20:08 Arm band placed on left wrist. lp1 20:18 Patient has correct armband on for positive identification. Bed in low position. Call jd3 light in reach. Side rails up X2. Adult w/ patient. 20:57 Inserted saline lock: 22 gauge in right antecubital area, using aseptic technique. jd3 Blood collected. 21:04 XRAY Chest (1 view) In Process Unspecified. EDMS 21:56 Hernan Richmond MD is Referral Physician. [facility] 22:29 No provider procedures requiring assistance completed. jd3 23:23 IV discontinued, intact, bleeding controlled, No redness/swelling at site. Pressure jd3 dressing applied. Administered Medications: 20:57 Drug: NS 0.9% 1000 ml Route: IV; Rate: 125 ml/hr; Site: right antecubital; jd3 23:23 Follow up: Response: No adverse reaction; IV Status: Completed infusion jd3 Outcome: 21:56 Discharge ordered by . [facility] 23:22 Discharged to home ambulatory, with family. jd3 23:22 Condition: stable 23:22 Discharge instructions given to patient, family, Instructed on discharge instructions, follow up and referral plans. Demonstrated understanding of instructions, follow-up care. 23:24 Patient left the ED. jd3 Signatures: Dispatcher [employer] EDMS Mahesh Macias MD MD cha Sanford, Demi ds1 Sandra Ngo RN RN lp1 Tha Velez RN RN jd3
[2018-06-02 22:16] LABS: Platelet Estimate INCR
[2018-06-02 22:17] LABS: Blood Morphology Comment NOTED (NOT SEEN); Platelets, Giant PRESENT; Urine White Blood Cell Casts OK
[2018-06-02 22:18] LABS: Anisocytosis 1+; Poikilocytosis 1+; Polychromasia 1+
[2018-06-02 22:20] LABS: Protime INR 1.28
[2018-06-02 23:30] VITALS: TEMP 98.5
[2018-06-02 23:34] VITALS: BP 126/57; O2SAT 97
[2018-06-02 23:40] LABS: Urine Blood NEGATIVE (NEG); Urine Glucose NEGATIVE (NEG); Urine Protein NEGATIVE (NEG); Urine pH 5.5 (5.0-7.0)
--- NOTE | 2018-06-03 13:36 | EKG ---
Test Date: 2018-06-02 Test Time: 20:28:05 Croze Cutter: WEI MEASUREMENT RESULTS: Intervals: Rate: 73 CA: 192 QRSD: 112 QT: 396 QTc: 436 Welch: P: 45 CA: 192 QRS: -41 T: 32 INTERPRETIVE STATEMENTS: Atrial-Ventricular Dual-Paced rhythmAtrial-paced rhythm with occasional ventricular premature complexes Abnormal ECG Compared to ECG 05/28/2018 16:43:49 AV pacing is now present Electronically Signed On 06-03-18 13:35:50 [employer] TRIMMER by Marcello Choi
== END 2018-06-02 23:24 | disposition home or self-care (01) ==
LOC: ER 19:51
DX: I50.40 Unspecified combined systolic (congestive) and diastolic (congestive) heart failure (principal); I51.7 Cardiomegaly; Z88.6 Allergy status to analgesic agent; I10 Essential (primary) hypertension; Z95.0 Presence of cardiac pacemaker
CPT/HCPCS: 36415; 71045; 80048; 80076; 80162; 81003; 83735; 83880; 84484; 85025; 85610; 87077; 87086; 87088; 87186; 93005; 96360; 96361; 99284; J7030

== ENCOUNTER 2018-07-14 19:15 | Emergency (ER) | payer OTHER ==
--- OUTSIDE RECORDS SUMMARY | 2018-07-14 19:18 | XMS REPORT ---
:1930 Author Organization [facility] Address [address] [place] [address] Dr. [place]o [address] [place] [id number] Care Team Providers Name Role Phone CHUCK [...] Value Reference Range Comments MAGNESIUM (BEAKER) (test phjg=255) 2.0 mg/dL 1.6-2.6 Specimen slightly hemolyzed BASIC METABOLIC [id number] 05:25:00 Test Item Value Reference Range Comments SODIUM (BEAKER) (test 138 meq/L 136-145 byij=620) POTASSIUM (BEAKER) (test 4.6 meq/L 3.5-5.1 Specimen slightly jjtq=079) hemolyzed CHLORIDE (BEAKER) (test 108 meq/L 98-107 ifaz=636) CO2 (BEAKER) (test 23 meq/L 22-29 pcza=543) BLOOD UREA NITROGEN 14 mg/dL 7-21 (BEAKER) (test qxyh=205) CREATININE (BEAKER) (test 0.87 mg/dL 0.57-1.25 Specimen slightly mtqf=773) hemolyzed GLUCOSE RANDOM (BEAKER) 109 mg/dL 70-105 (test wfmp=188) CALCIUM (BEAKER) (test 8.9 mg/dL 8.4-10.2 qikf=507) EGFR (BEAKER) (test 62 mL/min/1.73 sq m ESTIMATED GFR IS NOT zuch=2589) ACCURATE CREATININE CLEARANCE IN PREDICTING GLOMERULAR FILTRATION RATE. ESTIMATED GFR IS NOT APPLICABLE FOR DIALYSIS PATIENTS. CBC (HEMOGRAM ONLY)2017-01-08 05:22:00 Test Item Value Reference Range Comments WHITE BLOOD CELL COUNT (BEAKER) (test ddgl=226) 11.1 K/ L 4.0-10.0 RED BLOOD CELL COUNT (BEAKER) (test vbha=847) 3.62 M/ L 4.00-5.00 HEMOGLOBIN (BEAKER) (test irhc=812) 12.2 GM/DL 12.0-15.0 HEMATOCRIT (BEAKER) (test ftwu=438) 36.3 % 36.0-45.0 MEAN CORPUSCULAR VOLUME (BEAKER) (test kyix=768) 101.0 fL 82.0-99.0 MEAN CORPUSCULAR HEMOGLOBIN (BEAKER) (test 33.9 pg 27.0-33.0 ccmg=139) MEAN CORPUSCULAR HEMOGLOBIN CONC (BEAKER) (test 33.7 GM/DL 32.0-36.0 botb=869) RED CELL DISTRIBUTION WIDTH (BEAKER) (test 15.2 % 10.3-14.2 liod=041) PLATELET COUNT (BEAKER) (test dmhk=854) 201 K/CU MM 150-430 MEAN PLATELET VOLUME (BEAKER) (test kadb=519) 7.6 fL 6.5-10.5 NUCLEATED RED BLOOD CELLS (BEAKER) (test 0 /100 WBC 0-0 luzh=966) 0.00CBC (HEMOGRAM ONLY)2017-01-07 05:01:00 Test Item Value Reference Range Comments WHITE BLOOD CELL COUNT (BEAKER) (test rloi=683) 5.8 K/ L 4.0-10.0 RED BLOOD CELL COUNT (BEAKER) (test rick=713) 3.68 M/ L 4.00-5.00 HEMOGLOBIN (BEAKER) (test mveg=124) 12.1 GM/DL 12.0-15.0 HEMATOCRIT (BEAKER) (test mqbm=557) 36.9 % 36.0-45.0 MEAN CORPUSCULAR VOLUME (BEAKER) (test ctrz=071) 100.0 fL 82.0-99.0 MEAN CORPUSCULAR HEMOGLOBIN (BEAKER) (test 33.0 pg 27.0-33.0 eluq=265) MEAN CORPUSCULAR HEMOGLOBIN CONC (BEAKER) (test 32.8 GM/DL 32.0-36.0 keic=980) RED CELL DISTRIBUTION WIDTH (BEAKER) (test 13.5 % 10.3-14.2 jsbp=472) PLATELET COUNT (BEAKER) (test kwhn=021) 204 K/CU MM 150-430 MEAN PLATELET VOLUME (BEAKER) (test nhko=173) 7.3 fL 6.5-10.5 NUCLEATED RED BLOOD CELLS (BEAKER) (test 0 /100 WBC 0-0 zpof=515) [id number] 02:15:00 Test Item Value Reference Range Comments MAGNESIUM (BEAKER) (test tqoc=809) 2.2 mg/dL 1.6-2.6 BASIC METABOLIC [id number] 02:15:00 Test Item Value Reference Range Comments SODIUM (BEAKER) (test 142 meq/L 136-145 tnqd=408) POTASSIUM (BEAKER) (test 4.0 meq/L 3.5-5.1 jlof=968) CHLORIDE (BEAKER) (test 110 meq/L 98-107 ptxu=215) CO2 (BEAKER) (test 23 meq/L 22-29 hwgc=938) BLOOD UREA NITROGEN 21 mg/dL 7-21 (BEAKER) (test yona=591) CREATININE (BEAKER) (test 1.02 mg/dL 0.57-1.25 suzo=645) GLUCOSE RANDOM (BEAKER) 102 mg/dL 70-105 (test qpul=591) CALCIUM (BEAKER) (test 8.9 mg/dL 8.4-10.2 ckvo=796) EGFR (BEAKER) (test 51 mL/min/1.73 sq m ESTIMATED GFR IS NOT suib=5893) ACCURATE CREATININE CLEARANCE IN PREDICTING GLOMERULAR FILTRATION RATE. ESTIMATED GFR IS NOT APPLICABLE FOR DIALYSIS PATIENTS. [id number] 02:02:00 Test Item Value Reference Range Comments PARTIAL THROMBOPLASTIN TIME (BEAKER) (test 67.1 seconds 22.5-36.0 jnsv=310) CBC W/PLT COUNT & AUTO [id number] 01:59:00 Test Item Value Reference Range Comments WHITE BLOOD CELL COUNT (BEAKER) (test cuww=223) 5.2 K/ L 4.0-10.0 RED BLOOD CELL COUNT (BEAKER) (test yqih=414) 3.33 M/ L 4.00-5.00 HEMOGLOBIN (BEAKER) (test alyj=703) 11.4 GM/DL 12.0-15.0 HEMATOCRIT (BEAKER) (test cqwp=576) 33.5 % 36.0-45.0 MEAN CORPUSCULAR VOLUME (BEAKER) (test zjes=677) 101.0 fL 82.0-99.0 MEAN CORPUSCULAR HEMOGLOBIN (BEAKER) (test 34.4 pg 27.0-33.0 vexo=227) MEAN CORPUSCULAR HEMOGLOBIN CONC (BEAKER) (test 34.1 GM/DL 32.0-36.0 hlbk=471) RED CELL DISTRIBUTION WIDTH (BEAKER) (test 13.5 % 10.3-14.2 xmri=036) PLATELET COUNT (BEAKER) (test qucf=395) 184 K/CU MM 150-430 MEAN PLATELET VOLUME (BEAKER) (test tzlj=579) 7.0 fL 6.5-10.5 NUCLEATED RED BLOOD CELLS (BEAKER) (test 0 /100 WBC 0-0 khod=062) NEUTROPHILS RELATIVE PERCENT (BEAKER) (test 49 % hvwb=498) LYMPHOCYTES RELATIVE PERCENT (BEAKER) (test 34 % bkss=774) MONOCYTES RELATIVE PERCENT (BEAKER) (test 10 % stxz=939) EOSINOPHILS RELATIVE PERCENT (BEAKER) (test 7 % rowb=563) BASOPHILS RELATIVE PERCENT (BEAKER) (test 0 % ycgs=155) NEUTROPHILS ABSOLUTE COUNT (BEAKER) (test 2.52 K/ L 1.80-8.00 awby=914) LYMPHOCYTES ABSOLUTE COUNT (BEAKER) (test 1.75 K/ L 1.48-4.50 ffam=275) MONOCYTES ABSOLUTE COUNT (BEAKER) (test 0.54 K/ L 0.00-1.30 wtug=791) EOSINOPHILS ABSOLUTE COUNT (BEAKER) (test 0.34 K/ L 0.00-0.50 kdhl=938) BASOPHILS ABSOLUTE COUNT (BEAKER) (test 0.02 K/ L 0.00-0.20 gzve=050) 0.00DIGOXIN [id number] 18:00:00 Test Item Value Reference Range Comments DIGOXIN LEVEL (BEAKER) (test omdo=594) 0.4 ng/mL 0.8-2.0 TSH/FREE T4 IF [id number] 18:00:00 Test Item Value Reference Range Comments THYROID STIMULATING HORMONE (BEAKER) (test 1.47 uIU/mL 0.35-4.94 tnxx=647) [id number] 17:35:00 Test Item Value Reference Range Comments MAGNESIUM (BEAKER) (test pnck=776) 2.4 mg/dL 1.6-2.6 Fasting lipid panelBASIC METABOLIC [id number] 17:35:00 Test Item Value Reference Range Comments SODIUM (BEAKER) (test 139 meq/L 136-145 dikj=250) POTASSIUM (BEAKER) (test 3.9 meq/L 3.5-5.1 kxjk=675) CHLORIDE (BEAKER) (test 105 meq/L 98-107 mqhv=837) CO2 (BEAKER) (test 27 meq/L 22-29 tbew=822) BLOOD UREA NITROGEN 25 mg/dL 7-21 (BEAKER) (test izws=536) CREATININE (BEAKER) (test 1.24 mg/dL 0.57-1.25 hzoc=135) GLUCOSE RANDOM (BEAKER) 91 mg/dL 70-105 (test xmls=904) CALCIUM (BEAKER) (test 9.4 mg/dL 8.4-10.2 vobw=532) EGFR (BEAKER) (test 41 mL/min/1.73 sq m ESTIMATED GFR IS NOT cqye=9043) ACCURATE CREATININE CLEARANCE IN PREDICTING GLOMERULAR FILTRATION RATE. ESTIMATED GFR IS NOT APPLICABLE FOR DIALYSIS PATIENTS. Fasting lipid panelLIPID [id number] 17:35:00 Test Item Value Reference Range Comments TRIGLYCERIDES (BEAKER) (test wndz=942) 81 mg/dL CHOLESTEROL (BEAKER) (test mzba=697) 224 mg/dL HDL CHOLESTEROL (BEAKER) (test mfhk=514) 96 mg/dL LDL CHOLESTEROL CALCULATED (BEAKER) (test 112 mg/dL rsyo=053) Triglyceride Reference Range: Low Risk <150 Borderline 150- 199 High Risk 200-499 Very High Risk >=500Cholesterol Reference Range: Low Risk <200 Borderline 200-239 High Risk > 240HDL Cholesterol Reference Range: Low Risk >=60 High Risk <40LDL Cholesterol Reference Range: Optimal <100 Near Optimal 100-129 Borderline 130-159 High 160-189 Very High >=190 Fasting lipid panelHEPATIC FUNCTION [id number] 17:35:00 Test Item Value Reference Range Comments TOTAL PROTEIN (BEAKER) (test tamr=234) 7.7 gm/dL 6.0-8.3 ALBUMIN (BEAKER) (test jica=7297) 3.9 g/dL 3.5-5.0 BILIRUBIN TOTAL (BEAKER) (test xmel=851) 1.1 mg/dL 0.2-1.2 BILIRUBIN DIRECT (BEAKER) (test hrsn=900) 0.5 mg/dL 0.1-0.5 ALKALINE PHOSPHATASE (BEAKER) (test bzga=931) 120 U/L 40-150 AST (SGOT) (BEAKER) (test sxbx=693) 19 U/L 5-34 ALT (SGPT) (BEAKER) (test ddud=967) 19 U/L 6-55 Fasting lipid [id number] 17:24:00 Test Item Value Reference Range Comments PARTIAL THROMBOPLASTIN TIME (BEAKER) (test 37.0 seconds 22.5-36.0 dxiq=510) Prior to initiating heparinPROTHROMBIN TIME/[id number] 17:23:00 Test Item Value Reference Range Comments PROTIME (BEAKER) (test igfa=720) 14.3 seconds 11.7-14.7 INR (BEAKER) (test mtyo=600) 1.1 <=5.9 RECOMMENDED COUMADIN/WARFARIN INR THERAPY RANGESSTANDARD DOSE: 2.0 - 3.0 Includes: PROPHYLAXIS forvenous thrombosis, systemic embolization; TREATMENT for venous thrombosis and/or pulmonary embolus.HIGH RISK: Target INR is 2.5-3.5 for patients with mechanical heart valves.Prior to initiating [id number] 17:23:00 Test Item Value Reference Range Comments PARTIAL THROMBOPLASTIN TIME (BEAKER) (test 36.6 seconds 22.5-36.0 vgbn=476) Prior to initiating heparinCBC W/PLT COUNT & AUTO [id number] 17: 20:00 Test Item Value Reference Range Comments WHITE BLOOD CELL COUNT (BEAKER) (test bzcm=890) 6.1 K/ L 4.0-10.0 RED BLOOD CELL COUNT (BEAKER) (test lpuq=966) 3.72 M/ L 4.00-5.00 HEMOGLOBIN (BEAKER) (test woxa=493) 12.4 GM/DL 12.0-15.0 HEMATOCRIT (BEAKER) (test jdad=138) 37.4 % 36.0-45.0 MEAN CORPUSCULAR VOLUME (BEAKER) (test kkah=532) 101.0 fL 82.0-99.0 MEAN CORPUSCULAR HEMOGLOBIN (BEAKER) (test 33.5 pg 27.0-33.0 mdkc=364) MEAN CORPUSCULAR HEMOGLOBIN CONC (BEAKER) (test 33.2 GM/DL 32.0-36.0 axxp=373) RED CELL DISTRIBUTION WIDTH (BEAKER) (test 13.5 % 10.3-14.2 aons=907) PLATELET COUNT (BEAKER) (test ltxj=926) 219 K/CU MM 150-430 MEAN PLATELET VOLUME (BEAKER) (test ftlb=322) 7.0 fL 6.5-10.5 NUCLEATED RED BLOOD CELLS (BEAKER) (test 0 /100 WBC 0-0 ohdv=350) NEUTROPHILS RELATIVE PERCENT (BEAKER) (test 51 % gblk=801) LYMPHOCYTES RELATIVE PERCENT (BEAKER) (test 33 % mtqz=534) MONOCYTES RELATIVE PERCENT (BEAKER) (test 10 % fojb=217) EOSINOPHILS RELATIVE PERCENT (BEAKER) (test 5 % iwfh=527) BASOPHILS RELATIVE PERCENT (BEAKER) (test 1 % dzuz=327) NEUTROPHILS ABSOLUTE COUNT (BEAKER) (test 3.09 K/ L 1.80-8.00 tyxc=049) LYMPHOCYTES ABSOLUTE COUNT (BEAKER) (test 1.99 K/ L 1.48-4.50 ktql=805) MONOCYTES ABSOLUTE COUNT (BEAKER) (test 0.62 K/ L 0.00-1.30 hopr=426) EOSINOPHILS ABSOLUTE COUNT (BEAKER) (test 0.31 K/ L 0.00-0.50 irrk=231) BASOPHILS ABSOLUTE COUNT (BEAKER) (test 0.08 K/ L 0.00-0.20 aeuk=818) PLATELET [id number] 17:16:00 Test Item Value Reference Range Comments PLATELET COUNT (BEAKER) (test gkxe=003) 219 K/CU MM 150-430 BASIC METABOLIC [id number] 04:55:00 Test Item Value Reference Range Comments SODIUM (BEAKER) (test 141 meq/L 136-145 yine=625) POTASSIUM (BEAKER) (test 3.3 meq/L 3.5-5.1 atim=766) CHLORIDE (BEAKER) (test 104 meq/L 98-107 crdq=629) CO2 (BEAKER) (test 28 meq/L 22-29 xwds=477) BLOOD UREA NITROGEN 14 mg/dL 7-21 (BEAKER) (test wnis=841) CREATININE (BEAKER) (test 0.80 mg/dL 0.57-1.25 toto=139) GLUCOSE RANDOM (BEAKER) 97 mg/dL 70-105 (test lluz=734) CALCIUM (BEAKER) (test 8.9 mg/dL 8.4-10.2 rqfz=124) EGFR (BEAKER) (test 68 mL/min/1.73 sq m ESTIMATED GFR IS NOT jlul=6317) ACCURATE CREATININE CLEARANCE IN PREDICTING GLOMERULAR FILTRATION RATE. ESTIMATED GFR IS NOT APPLICABLE FOR DIALYSIS PATIENTS. CBC (HEMOGRAM ONLY)2016-10-03 04:47:00 Test Item Value Reference Range Comments WHITE BLOOD CELL COUNT (BEAKER) (test vkyz=857) 7.8 K/ L 4.0-10.0 RED BLOOD CELL COUNT (BEAKER) (test yvcf=827) 3.12 M/ L 4.00-5.00 HEMOGLOBIN (BEAKER) (test rynb=908) 11.2 GM/DL 12.0-15.0 HEMATOCRIT (BEAKER) (test lgbf=056) 32.5 % 36.0-45.0 MEAN CORPUSCULAR VOLUME (BEAKER) (test iazh=894) 104.0 fL 82.0-99.0 MEAN CORPUSCULAR HEMOGLOBIN (BEAKER) (test 35.8 pg 27.0-33.0 mgeu=318) MEAN CORPUSCULAR HEMOGLOBIN CONC (BEAKER) (test 34.4 GM/DL 32.0-36.0 lzjn=951) RED CELL DISTRIBUTION WIDTH (BEAKER) (test 12.8 % 10.3-14.2 mmvi=327) PLATELET COUNT (BEAKER) (test tmge=537) 190 K/CU MM 150-430 MEAN PLATELET VOLUME (BEAKER) (test kayd=748) 7.4 fL 6.5-10.5 NUCLEATED RED BLOOD CELLS (BEAKER) (test 0 /100 WBC 0-0 ceer=008) 0.00PT/[id number] 04:41:00 Test Item Value Reference Range Comments PROTIME (BEAKER) (test knym=210) 13.1 seconds 11.7-14.7 INR (BEAKER) (test ubbv=909) 1.0 <=5.9 PARTIAL THROMBOPLASTIN TIME (BEAKER) (test 28.1 seconds 22.5-36.0 czrm=231) RECOMMENDED COUMADIN/WARFARIN INR THERAPY RANGESSTANDARD DOSE: 2.0 - 3.0 Includes: PROPHYLAXIS forvenous thrombosis, systemic embolization; TREATMENT for venous thrombosis and/or pulmonary embolus.HIGH RISK: Target INR is 2.5-3.5 for patients with mechanical heart valves.CREATINE KINASE (CK), TOTAL AND [id number] 04:53:00 Test Item Value Reference Range Comments CREATINE KINASE TOTAL (BEAKER) (test cdzv=959) 36 U/L 29-200 CREATINE KINASE-MB (BEAKER) (test gnkd=389) 1.6 ng/mL 0.0-6.6 CREATINE KINASE-MB INDEX (BEAKER) (test wike=248) 4.4 % Effective 06/14/2014: CK-MB Reference Range ChangeNew: 0.0-6.6 Previous: 0.0- 4.9CK-MB Reference Range:<6.7 Normal6.7-10.0 Borderline>10.0 AbnormalTROPONIN [id number] 04:53:00 Test Item Value Reference Range Comments TROPONIN I (BEAKER) (test aqsr=799) 0.03 ng/mL 0.00-0.03 Effective 06/14/2014: Reference Range [...] acute neurological disease, and persistent tachyarrhythmia.BASIC METABOLIC [id number] 04:46:00 Test Item Value Reference Range Comments SODIUM (BEAKER) (test 139 meq/L 136-145 jswu=807) POTASSIUM (BEAKER) (test 3.7 meq/L 3.5-5.1 orok=503) CHLORIDE (BEAKER) (test 104 meq/L 98-107 dpbk=957) CO2 (BEAKER) (test 27 meq/L 22-29 ywok=828) BLOOD UREA NITROGEN 14 mg/dL 7-21 (BEAKER) (test tfvb=816) CREATININE (BEAKER) (test 0.82 mg/dL 0.57-1.25 oynu=376) GLUCOSE RANDOM (BEAKER) 102 mg/dL 70-105 (test fmgt=361) CALCIUM (BEAKER) (test 9.1 mg/dL 8.4-10.2 vfsd=904) EGFR (BEAKER) (test 66 mL/min/1.73 sq m ESTIMATED GFR IS NOT jwwv=3573) ACCURATE CREATININE CLEARANCE IN PREDICTING GLOMERULAR FILTRATION RATE. ESTIMATED GFR IS NOT APPLICABLE FOR DIALYSIS PATIENTS. PT/[id number] 04:41:00 Test Item Value Reference Range Comments PROTIME (BEAKER) (test qbrs=277) 13.5 seconds 11.7-14.7 INR (BEAKER) (test jqqq=374) 1.0 <=5.9 PARTIAL THROMBOPLASTIN TIME (BEAKER) (test 33.1 seconds 22.5-36.0 duzf=717) RECOMMENDED COUMADIN/WARFARIN INR THERAPY RANGESSTANDARD DOSE: 2.0 - 3.0 Includes: PROPHYLAXIS forvenous thrombosis, systemic embolization; TREATMENT for venous thrombosis and/or pulmonary embolus.HIGH RISK: Target INR is 2.5-3.5 for patients with mechanical heart valves.CBC (HEMOGRAM ONLY)2016-10-02 04:33:00 Test Item Value Reference Range Comments WHITE BLOOD CELL COUNT (BEAKER) (test ljhd=013) 9.4 K/ L 4.0-10.0 RED BLOOD CELL COUNT (BEAKER) (test rhya=622) 3.07 M/ L 4.00-5.00 HEMOGLOBIN (BEAKER) (test vciu=023) 11.0 GM/DL 12.0-15.0 HEMATOCRIT (BEAKER) (test jtaq=000) 31.9 % 36.0-45.0 MEAN CORPUSCULAR VOLUME (BEAKER) (test cxwo=535) 104.0 fL 82.0-99.0 MEAN CORPUSCULAR HEMOGLOBIN (BEAKER) (test 36.0 pg 27.0-33.0 kwxy=412) MEAN CORPUSCULAR HEMOGLOBIN CONC (BEAKER) (test 34.6 GM/DL 32.0-36.0 xlke=808) RED CELL DISTRIBUTION WIDTH (BEAKER) (test 12.7 % 10.3-14.2 egkj=754) PLATELET COUNT (BEAKER) (test kqbs=298) 205 K/CU MM 150-430 MEAN PLATELET VOLUME (BEAKER) (test xphs=464) 7.3 fL 6.5-10.5 NUCLEATED RED BLOOD CELLS (BEAKER) (test 0 /100 WBC 0-0 geqy=030) 0.00TSH/FREE T4 IF [id number] 19:30:00 Test Item Value Reference Range Comments THYROID STIMULATING HORMONE (BEAKER) (test 0.43 uIU/mL 0.35-4.94 akgs=155) CREATINE KINASE (CK), TOTAL AND [id number] 19:14:00 Test Item Value Reference Range Comments CREATINE KINASE TOTAL (BEAKER) (test bnov=971) 53 U/L 29-200 CREATINE KINASE-MB (BEAKER) (test zdgy=812) 2.6 ng/mL 0.0-6.6 CREATINE KINASE-MB INDEX (BEAKER) (test nzde=633) 4.9 % Effective 06/14/2014: CK-MB Reference Range ChangeNew: 0.0-6.6 Previous: 0.0- 4.9CK-MB Reference Range:<6.7 Normal6.7-10.0 Borderline>10.0 AbnormalTROPONIN [id number] 19:14:00 Test Item Value Reference Range Comments TROPONIN I (BEAKER) (test yqut=795) 0.01 ng/mL 0.00-0.03 Effective 06/14/2014: Reference Range [...] renalfailure, acidosis, acute neurological disease, and persistent tachyarrhythmia.[id number] 15:20: 00 Test Item Value Reference Range Comments MAGNESIUM (BEAKER) (test iutp=389) 1.9 mg/dL 1.6-2.6 BASIC METABOLIC [id number] 15:20:00 Test Item Value Reference Range Comments SODIUM (BEAKER) (test 141 meq/L 136-145 spar=013) POTASSIUM (BEAKER) (test 3.9 meq/L 3.5-5.1 ahxg=931) CHLORIDE (BEAKER) (test 108 meq/L 98-107 omja=235) CO2 (BEAKER) (test 25 meq/L 22-29 krvr=787) BLOOD UREA NITROGEN 14 mg/dL 7-21 (BEAKER) (test cvzv=882) CREATININE (BEAKER) (test 0.84 mg/dL 0.57-1.25 uaeq=854) GLUCOSE RANDOM (BEAKER) 130 mg/dL 70-105 (test vtxo=965) CALCIUM (BEAKER) (test 8.8 mg/dL 8.4-10.2 zisk=705) EGFR (BEAKER) (test 64 mL/min/1.73 sq m ESTIMATED GFR IS NOT hlgt=0985) ACCURATE CREATININE CLEARANCE IN PREDICTING GLOMERULAR FILTRATION RATE. ESTIMATED GFR IS NOT APPLICABLE FOR DIALYSIS PATIENTS. CBC (HEMOGRAM ONLY)2016-10-01 14:52:00 Test Item Value Reference Range Comments WHITE BLOOD CELL COUNT (BEAKER) (test wpcm=731) 10.1 K/ L 4.0-10.0 RED BLOOD CELL COUNT (BEAKER) (test xogo=663) 3.40 M/ L 4.00-5.00 HEMOGLOBIN (BEAKER) (test vzgr=502) 11.9 GM/DL 12.0-15.0 HEMATOCRIT (BEAKER) (test jjeb=998) 34.6 % 36.0-45.0 MEAN CORPUSCULAR VOLUME (BEAKER) (test aozz=702) 102.0 fL 82.0-99.0 MEAN CORPUSCULAR HEMOGLOBIN (BEAKER) (test 35.1 pg 27.0-33.0 sxkq=674) MEAN CORPUSCULAR HEMOGLOBIN CONC (BEAKER) (test 34.5 GM/DL 32.0-36.0 pbkk=423) RED CELL DISTRIBUTION WIDTH (BEAKER) (test 13.5 % 10.3-14.2 jjzc=886) PLATELET COUNT (BEAKER) (test tfpu=456) 204 K/CU MM 150-430 MEAN PLATELET VOLUME (BEAKER) (test fpkg=188) 7.4 fL 6.5-10.5 NUCLEATED RED BLOOD CELLS (BEAKER) (test 0 /100 WBC 0-0 uaio=495) 0.00BASIC METABOLIC [id number] 11:00:00 Test Item Value Reference Range Comments SODIUM (BEAKER) (test 142 meq/L 136-145 xjcg=122) POTASSIUM (BEAKER) (test 4.5 meq/L 3.5-5.1 skae=224) CHLORIDE (BEAKER) (test 103 meq/L 98-107 qejt=268) CO2 (BEAKER) (test 28 meq/L 22-29 hduj=730) BLOOD UREA NITROGEN 28 mg/dL 7-21 (BEAKER) (test euyf=847) CREATININE (BEAKER) (test 1.04 mg/dL 0.57-1.25 nhqa=932) GLUCOSE RANDOM (BEAKER) 98 mg/dL 70-105 (test zosl=095) CALCIUM (BEAKER) (test 9.8 mg/dL 8.4-10.2 lhlp=416) EGFR (BEAKER) (test 50 mL/min/1.73 sq m ESTIMATED GFR IS NOT ibqj=2095) ACCURATE CREATININE CLEARANCE IN PREDICTING GLOMERULAR FILTRATION RATE. ESTIMATED GFR IS NOT APPLICABLE FOR DIALYSIS PATIENTS. CBC W/PLT COUNT & AUTO [id number] 10:59:00 Test Item Value Reference Range Comments WHITE BLOOD CELL COUNT (BEAKER) (test sgod=350) 7.0 K/ L 4.0-10.0 RED BLOOD CELL COUNT (BEAKER) (test mjnw=207) 3.77 M/ L 4.00-5.00 HEMOGLOBIN (BEAKER) (test mwdk=594) 13.2 GM/DL 12.0-15.0 HEMATOCRIT (BEAKER) (test gbyh=583) 38.5 % 36.0-45.0 MEAN CORPUSCULAR VOLUME (BEAKER) (test xofh=387) 102.0 fL 82.0-99.0 MEAN CORPUSCULAR HEMOGLOBIN (BEAKER) (test 34.9 pg 27.0-33.0 dshz=584) MEAN CORPUSCULAR HEMOGLOBIN CONC (BEAKER) (test 34.2 GM/DL 32.0-36.0 fbvw=270) RED CELL DISTRIBUTION WIDTH (BEAKER) (test 13.6 % 10.3-14.2 xzcl=260) PLATELET COUNT (BEAKER) (test kojc=270) 233 K/CU MM 150-430 MEAN PLATELET VOLUME (BEAKER) (test heph=162) 7.3 fL 6.5-10.5 NUCLEATED RED BLOOD CELLS (BEAKER) (test 0 /100 WBC 0-0 mjae=365) NEUTROPHILS RELATIVE PERCENT (BEAKER) (test 60 % fayj=357) LYMPHOCYTES RELATIVE PERCENT (BEAKER) (test 27 % ceeg=102) MONOCYTES RELATIVE PERCENT (BEAKER) (test 9 % yxlt=249) EOSINOPHILS RELATIVE PERCENT (BEAKER) (test 3 % btzo=240) BASOPHILS RELATIVE PERCENT (BEAKER) (test 1 % mktp=434) NEUTROPHILS ABSOLUTE COUNT (BEAKER) (test 4.20 K/ L 1.80-8.00 gmfv=461) LYMPHOCYTES ABSOLUTE COUNT (BEAKER) (test 1.92 K/ L 1.48-4.50 fvqg=964) MONOCYTES ABSOLUTE COUNT (BEAKER) (test 0.60 K/ L 0.00-1.30 dkyn=956) EOSINOPHILS ABSOLUTE COUNT (BEAKER) (test 0.23 K/ L 0.00-0.50 qepx=286) BASOPHILS ABSOLUTE COUNT (BEAKER) (test 0.07 K/ L 0.00-0.20 goly=478) 0.00PT/[id number] 10:58:00 Test Item Value Reference Range Comments PROTIME (BEAKER) (test gyou=256) 12.7 seconds 11.7-14.7 INR (BEAKER) (test qjud=174) 1.0 <=5.9 PARTIAL THROMBOPLASTIN TIME (BEAKER) (test 29.7 seconds 22.5-36.0 aewv=891) RECOMMENDED COUMADIN/WARFARIN INR THERAPY RANGESSTANDARD DOSE: 2.0 - 3.0 Includes: PROPHYLAXIS forvenous thrombosis, systemic embolization; TREATMENT for venous thrombosis and/or pulmonary embolus.HIGH RISK: Target INR is 2.5-3.5 for patients with mechanical heart valves.
--- OUTSIDE RECORDS SUMMARY | 2018-07-14 19:18 | XMS REPORT | Clinical Summary ---
:1930 Author Organization [facility] Address [address] [place] [address] Care Team Providers Name Role Phone Hernan [...] INFLUENZA VACCINE 04/27/2018 Implants Implanted Type Area Laundry Route Driver Device Shelf Model / Identifier Expiration Serial / Lot Date Lead Attain Performa 78cm [id number] - [id number] Cardiovascular N/A: [employer] :CARD 10/03/2018 [id number] / Implanted: Qty: 1 on 01/07/2017 by Satya Perales MD Chest RHY: DISEASE [id number] / MGT Ld Endocardial Df4 Act 55 [id number] - [id number] Defibrillators N/A: [employer]:CARD 10/10/2018 [id number] / Implanted: Qty: 1 on 01/07/2017 by Satya Perales MD Chest RHY: DISEASE [id number] / MGT Dev Amplia Quad Optical Advisor-D Surescn [id number] - [id number] Defibrillators N/A: [employer]:CARD 04/24/2018 [id number] / Implanted: Qty: 1 on 01/07/2017 by Satya Perales MD Chest RHY:PACING SYS [id number] / Grft Hemshld Dbl Silvio 0.3x3.0in [id number] - [id number] Graft/Patch Right: GETINGE 04/26/2021 [id number] / Implanted: Qty: 1 on 10/01/2016 by Miguelangel Stack MD Neck IND:MAQUET:CV [id number] / [id number] Lead Pacemkr Rosa Chew 45x1 [id number] - [id number] Pacemaker Lead N/A: [employer]:CARD 09/23/2018 [id number] / Implanted: Qty: 1 on 01/07/2017 by Satya Perales MD Chest RHY: DISEASE [id number] / MGT Results Not on fileafter 07/13/2017 Insurance Payer Benefit Plan / Group Subscriber ID Type Phone Address CARE IMPROVEMENT MEDICARE MGD CARE IMPROVEMENT PLUS xxxxxxxxx [address]ARE DR dinora Hazel (Home) [address] [place] [address] Advance Directives For more information, please contact:[address] [phone] Code Status Date Activated Date Inactivated Comments Full Code 01/07/2017 1:15 PM 01/08/2017 4:34 PM This code status was determined by: Patient Full Code 10/01/2016 11:49 AM 10/03/2016 8:34 PM This code status was determined by: Patient Full Code 09/30/2016 6:24 PM 10/01/2016 11:49 AM This code status was determined by: Patient
[2018-07-14 20:41] LABS: Potassium 5.2 mmol/L (3.5-5.1)
--- NOTE | 2018-07-14 21:00 | EDPHYS ---
Physician Documentation [facility] Name: Nikky Ocampo Age: 88 yrs Sex: Female : 1930 Arrival Date: 07/14/2018 Time: 19:19 Bed 14 Private MD: ED Physician Christian Phillips HPI: 07/14 20:34 This 88 yrs old Female presents to ER via Ambulatory with complaints of High rn Potassium. 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 NO vomiting. NO new medications. . Onset: The symptoms/episode began/occurred at an unknown time. Severity of symptoms: At their worst the symptoms were unknown. The patient has experienced similar episodes in the past. The patient has been recently seen by a physician:. Historical: - Allergies: 19:30 Bosulif; jb4 19:30 Codeine; jb4 - Home Meds: 19:30 Allergy Medicine Oral [Active]; aspercreme lotion 10% PRN [Active]; Bactrim DS 800-160 jb4 mg Oral tab 1 tab q12 hours x 10 days [Active]; Bosulif 100 mg Oral tab 3 tabs once daily [Active]; cranberry Oral [Active]; dasatinib Oral [Active]; digoxin 125 mcg Oral tab 1 tab Every other day [Active]; Eliquis 5.5 Oral 1 tab 2 times per day [Active]; Estrace CREAM Oral [Active]; fluconazole Oral [Active]; Econazole Nitrate Cream [Active]; gabapentin 400 mg Oral cap 2 cap 4x per day [Active]; fluticasone nasal [Active]; levothyroxine 50 mcg tab 1 tab once daily [Active]; metoprolol succinate 25 mg Oral Tb24 twice a day [Active]; preser vision [Active]; ranitidine HCl 150 mg Oral cap once daily [Active]; Restasis ophthalmic [Active]; spironolactone 50 mg Oral tab 1 tab once daily [Active]; Spironolactone Oral [Active]; tramadol 50 mg Oral tab 1 tab once a day [Active]; - PMHx: 19:30 Chronic leukemia; colon cancer; Hypertension; CHF; Pacemaker; jb4 - PSHx: 19:30 Carotid surgery; jb4 - Immunization history:: Adult Immunizations up to date, Pneumococcal vaccine is up to date, Flu vaccine is up to date. - Social history:: Smoking status: unknown. - Ebola Screening: : Patient positive for the following Ebola Virus Disease associated symptoms: . - Family history:: not pertinent. - Hospitalizations: : No recent hospitalization is reported. ROS: 20:34 Constitutional: Negative for fever, chills, and weight loss, Eyes: Negative for injury, rn pain, redness, and discharge, Neck: Negative for injury, pain, and swelling, Cardiovascular: Negative for chest pain, palpitations, and edema, Respiratory: Negative for shortness of breath, cough, wheezing, and pleuritic chest pain, Abdomen/GI: Negative for abdominal pain, nausea, vomiting, diarrhea, and constipation, MS/Extremity: Negative for injury and deformity, Skin: Negative for injury, rash, and discoloration, Neuro: Negative for headache, weakness, numbness, tingling, and seizure. Exam: 20:34 Constitutional: This is a well developed, well nourished patient who is awake, alert, rn and in no acute distress. Head/Face: Normocephalic, atraumatic. Eyes: Pupils equal round and reactive to light, extra-ocular motions intact. Lids and lashes normal. Conjunctiva and sclera are non-icteric and not injected. Cornea within normal limits. Periorbital areas with no swelling, redness, or edema. ENT: MMM Cardiovascular: Regular rate and rhythm, No pulse deficits. Respiratory: Lungs have equal breath sounds bilaterally, clear to auscultation Abdomen/GI: soft, non-tender Skin: Warm, dry with normal turgor. Normal color with no rashes, no lesions, and no evidence of cellulitis. MS/ Extremity: Pulses equal, no cyanosis. Neurovascular intact. Full, normal range of motion. Equal circumference. Neuro: Awake and alert, GCS 15, oriented to person, place, time, and situation. Cranial nerves II-XII grossly intact. Motor strength 5/5 in all extremities. Sensory grossly intact. Cerebellar exam normal. Normal gait. Vital Signs: 19:30 BP 132 / 56; Pulse 72; Resp 16; Temp 99.7; Pulse Ox 95% on R/A; Weight 56.7 kg (R); jb4 Height 5 ft. 5 in. (165.10 cm) (R); Pain 7/10; 20:30 BP 118 / 50; Pulse 60; Resp 16; Pulse Ox 94% on R/A; jb4 21:15 BP 151 / 66; Pulse 59; Resp 16; Pulse Ox 96% on R/A; jb4 19:30 Body Mass Index 20.80 (56.70 kg, 165.10 cm) jb4 MDM: 19:38 Patient medically screened. rn 20:58 Differential Diagnosis hyperkalemia, dehydration. Data reviewed: vital signs, nurses rn notes, lab test result(s), and as a result, I will discharge patient. Counseling: I had a detailed discussion with the patient and/or guardian regarding: the historical points, exam findings, and any diagnostic results supporting the discharge/admit diagnosis, lab results, the need for outpatient follow up, to return to the emergency department if symptoms worsen or persist or if there are any questions or concerns that arise at home. Special discussion: I discussed with the patient/guardian in detail that at this point there is no indication for admission to the hospital. It is understood, however, that if the symptoms persist or worsen the patient needs to return immediately for re-evaluation. 07/14 19:43 Order name: [facility]; Complete Time: 20:52 rn Administered Medications: 20:58 Not Given (trouble getting IV, patient prefers to drink): NS 0.9% 500 ml IV at bolus rn once 21:22 Drug: Kayexalate 45 grams Route: PO; 4 21:26 Follow up: Response: No adverse reaction 4 Disposition: 07/14/18 20:59 Discharged to Home. Impression: Hyperkalemia, Dehydration. - Condition is Stable. - Discharge Instructions: Dehydration, Adult, Hyperkalemia. - Medication Reconciliation Form, Thank You Letter, Antibiotic Education, Prescription Opioid Use form. - Follow up: Private Physician; When: As needed; Reason: Recheck today's complaints, Re-evaluation by your physician. - Problem is new. - Symptoms have improved. Signatures: Dispatcher [employer] EDChristian Low MD MD rn Bryson, James, RN RN jb4 Corrections: (The following items were deleted from the chart) 21:03 19:43 IV Saline Lock ordered. rn [email or web address] 21:26 20:59 07/14/2018 20:59 Discharged to Home. Impression: Hyperkalemia; Dehydration. jb4 Condition is Stable. Forms are Medication Reconciliation Form, Thank You Letter, Antibiotic Education, Prescription Opioid Use. Follow up: Private Physician; When: As needed; Reason: Recheck today's complaints, Re-evaluation by your physician. Problem is new. Symptoms have improved. parag
--- NOTE | 2018-07-14 21:00 | ER ---
Nurse's Notes [facility] Name: Nikky Ocampo Age: 88 yrs Sex: Female : 1930 Arrival Date: 07/14/2018 Time: 19:19 Bed 14 Private MD: Diagnosis: Hyperkalemia;Dehydration Presentation: 07/14 19:30 Presenting complaint: Patient states: I went to the Dr. to have some blood drawn today jb4 and they called saying I had high potassium and told me to come to the ER to get evaluated. Transition of care: patient was not received from another setting of care. Onset of symptoms was July 14, 2018. Risk Assessment: Do you want to hurt yourself or someone else? Patient reports no desire to harm self or others. Initial Sepsis Screen: Does the patient meet any 2 criteria? Yes Does the patient have a suspected source of infection? No. Patient's initial sepsis screen is negative. 19:30 Method Of Arrival: Ambulatory jb4 19:30 Acuity: TASIA 3 jb4 19:30 Care prior to arrival: None. jb4 Historical: - Allergies: 19:30 Bosulif; jb4 19:30 Codeine; jb4 - Home Meds: 19:30 Allergy Medicine Oral [Active]; aspercreme lotion 10% PRN [Active]; Bactrim DS 800-160 jb4 mg Oral tab 1 tab q12 hours x 10 days [Active]; Bosulif 100 mg Oral tab 3 tabs once daily [Active]; cranberry Oral [Active]; dasatinib Oral [Active]; digoxin 125 mcg Oral tab 1 tab Every other day [Active]; Eliquis 5.5 Oral 1 tab 2 times per day [Active]; Estrace CREAM Oral [Active]; fluconazole Oral [Active]; Econazole Nitrate Cream [Active]; gabapentin 400 mg Oral cap 2 cap 4x per day [Active]; fluticasone nasal [Active]; levothyroxine 50 mcg tab 1 tab once daily [Active]; metoprolol succinate 25 mg Oral Tb24 twice a day [Active]; preser vision [Active]; ranitidine HCl 150 mg Oral cap once daily [Active]; Restasis ophthalmic [Active]; spironolactone 50 mg Oral tab 1 tab once daily [Active]; Spironolactone Oral [Active]; tramadol 50 mg Oral tab 1 tab once a day [Active]; - PMHx: 19:30 Chronic leukemia; colon cancer; Hypertension; CHF; Pacemaker; jb4 - PSHx: 19:30 Carotid surgery; jb4 - Immunization history:: Adult Immunizations up to date, Pneumococcal vaccine is up to date, Flu vaccine is up to date. - Social history:: Smoking status: unknown. - Ebola Screening: : Patient positive for the following Ebola Virus Disease associated symptoms: . - Family history:: not pertinent. - Hospitalizations: : No recent hospitalization is reported. Screenin:30 Abuse screen: Denies threats or abuse. Nutritional screening: No deficits noted. jb4 Tuberculosis screening: No symptoms or risk factors identified. Fall Risk Ambulatory Aid- Crutches/Cane/Walker (15 pts). Total Wharton Fall Scale indicates No Risk (0-24 pts). Assessment: 19:30 General: Appears in no apparent distress. comfortable, Behavior is calm, cooperative, jb4 appropriate for age. Pain: Complains of pain in right leg and left leg Pain currently is 7 out of 10 on a pain scale. Neuro: Level of Consciousness is awake, alert, obeys commands, Oriented to person, place, time. Cardiovascular: Patient's skin is warm and dry. Respiratory: Airway is patent Respiratory effort is even, unlabored, Respiratory pattern is regular, symmetrical. GI: No signs and/or symptoms were reported involving the gastrointestinal system. : EENT: No signs and/or symptoms were reported regarding the EENT system. Derm: Skin is intact, Skin is pink, warm \T\ dry. Musculoskeletal: Circulation, motion, and sensation intact. 20:30 Reassessment: Patient appears in no apparent distress at this time. Patient and/or jb4 family updated on plan of care and expected duration. Pain level reassessed. Patient is alert, oriented x 3, equal unlabored respirations, skin warm/dry/pink. 21:24 Reassessment: Patient appears in no apparent distress at this time. Patient and/or jb4 family updated on plan of care and expected duration. Pain level reassessed. Patient is alert, oriented x 3, equal unlabored respirations, skin warm/dry/pink. Discussed D/c, F/u with pt and family, denies questions or concerns. Vital Signs: 19:30 BP 132 / 56; Pulse 72; Resp 16; Temp 99.7; Pulse Ox 95% on R/A; Weight 56.7 kg (R); jb4 Height 5 ft. 5 in. (165.10 cm) (R); Pain 7/10; 20:30 BP 118 / 50; Pulse 60; Resp 16; Pulse Ox 94% on R/A; jb4 21:15 BP 151 / 66; Pulse 59; Resp 16; Pulse Ox 96% on R/A; jb4 19:30 Body Mass Index 20.80 (56.70 kg, 165.10 cm) jb4 ED Course: 19:19 Patient arrived in ED. ds1 19:29 Adolph Astorga, RN is Primary Nurse. jb4 19:30 Arm band placed on left wrist. jb4 19:30 Patient has correct armband on for positive identification. Bed in low position. Call jb4 light in reach. Side rails up X 1. Pulse ox on. NIBP on. 19:38 Christian Phillips MD is Attending Physician. rn 19:51 Triage completed. jb4 20:07 Missed attempt(s): 22 gauge in right antecubital area. Bleeding controlled, band aid mb4 applied, catheter tip intact. 21:26 No provider procedures requiring assistance completed. Patient did not have IV access jb4 during this emergency room visit. Administered Medications: 20:58 Not Given (trouble getting IV, patient prefers to drink): NS 0.9% 500 ml IV at bolus rn once 21:22 Drug: Kayexalate 45 grams Route: PO; jb4 21:26 Follow up: Response: No adverse reaction jb4 Outcome: 20:59 Discharge ordered by . rn 21:26 Discharged to home ambulatory, with family. jb4 21:26 Condition: stable 21:26 Discharge instructions given to patient, family, Instructed on discharge instructions, follow up and referral plans. Demonstrated understanding of instructions, follow-up care. 21:26 Patient left the ED. jb4 Signatures: Denae Borjas ds1 Christian Phillips MD MD rn Bryson, James, RN RN jb4 Destiny Gandhi mb4
[2018-07-14] MEDS ORDERED: SOD POLYSTYREN SUL 15 GM/60 ML UCUP ONE (21:25)
[2018-07-14 21:32] VITALS: TEMP 99.7
[2018-07-14 21:35] VITALS: BP 151/66; O2SAT 96
== END 2018-07-14 21:26 | disposition home or self-care (01) ==
LOC: ER 19:15
DX: E86.0 Dehydration (principal); I10 Essential (primary) hypertension; C95.10 Chronic leukemia of unspecified cell type not having achieved remission; Z79.01 Long term (current) use of anticoagulants; Z88.5 Allergy status to narcotic agent; Z88.8 Allergy status to other drugs, medicaments and biological substances; Z85.038 Personal history of other malignant neoplasm of large intestine; Z95.0 Presence of cardiac pacemaker
CPT/HCPCS: 36415; 80048; 99283

== ENCOUNTER 2018-08-13 16:30 | Inpatient (IN) | payer OTHER ==
--- OUTSIDE RECORDS SUMMARY | 2018-08-13 16:33 | XMS REPORT | Clinical Summary ---
:1930 Author Organization [facility] Address [address] [place] [address] Care Team Providers Name Role Phone Hernan [...] INFLUENZA VACCINE 04/27/2018 Implants Implanted Type Area Valet Attendant Device Shelf Model / Identifier Expiration Serial / Lot Date Lead Attain Performa 78cm [id number] - [id number] Cardiovascular N/A: [employer] :CARD 10/03/2018 [id number] / Implanted: Qty: 1 on 01/07/2017 by Satya Perales MD Chest RHY: DISEASE [id number] / MGT Ld Endocardial Df4 Act 55 [id number] - [id number] Defibrillators N/A: [employer]:CARD 10/10/2018 [id number] / Implanted: Qty: 1 on 01/07/2017 by Satya Perales MD Chest RHY: DISEASE [id number] / MGT Dev Amplia Quad Irish Moss Operator-D Surescn [id number] - [id number] Defibrillators N/A: [employer]:CARD 04/24/2018 [id number] / Implanted: Qty: 1 on 01/07/2017 by Satya Perales MD Chest RHY:PACING SYS [id number] / Grft Hemshld Dbl Silvio 0.3x3.0in [id number] - [id number] Graft/Patch Right: GETINGE 04/26/2021 [id number] / Implanted: Qty: 1 on 10/01/2016 by Miguelangel Stack MD Neck IND:MAQUET:CV [id number] / [id number] Lead Pacemkr Rosa Chew 45x1 [id number] - [id number] Pacemaker Lead N/A: [employer]:CARD 09/23/2018 [id number] / Implanted: Qty: 1 on 01/07/2017 by Satya Perales MD Chest RHY: DISEASE [id number] / MGT Results Not on fileafter 08/12/2017 Insurance Payer Benefit Plan / Group Subscriber ID Type Phone Address CARE IMPROVEMENT MEDICARE MGD CARE IMPROVEMENT PLUS xxxxxxxxx [address]ARE [address] dinora [address]el (Home) [address] [place] [address] Advance Directives For more information, please contact:[address] [phone] Code Status Date Activated Date Inactivated Comments Full Code 01/07/2017 1:15 PM 01/08/2017 4:34 PM This code status was determined by: Patient Full Code 10/01/2016 11:49 AM 10/03/2016 8:34 PM This code status was determined by: Patient Full Code 09/30/2016 6:24 PM 10/01/2016 11:49 AM This code status was determined by: Patient
--- OUTSIDE RECORDS SUMMARY | 2018-08-13 16:33 | XMS REPORT ---
:1930 Author Organization [facility] Address [address] [place] [address] [address] [place] [address] Care Team Providers Name Role Phone MICHELLE CHUCK MOSELEY Unavailable Unavailable ABDIRAHMAN NOLAN Unavailable Unavailable Problems This patient has no known problems. Allergies, Adverse Reactions, Alerts This patient has no known allergies or adverse reactions. Medications This patient has no known medications. Results Test Description Test Time Test Comments Text Results Atomic Results Result Comments MAGNESIUM 2017-01-08 05:25:00 Test Item Value Reference Range Comments MAGNESIUM (BEAKER) (test pzlt=382) 2.0 mg/dL 1.6-2.6 Specimen slightly hemolyzed BASIC METABOLIC [id number] 05:25:00 Test Item Value Reference Range Comments SODIUM (BEAKER) (test 138 meq/L 136-145 mhpn=194) POTASSIUM (BEAKER) (test 4.6 meq/L 3.5-5.1 Specimen slightly vosx=992) hemolyzed CHLORIDE (BEAKER) (test 108 meq/L 98-107 uaiv=804) CO2 (BEAKER) (test 23 meq/L 22-29 hwjx=187) BLOOD UREA NITROGEN 14 mg/dL 7-21 (BEAKER) (test volm=144) CREATININE (BEAKER) (test 0.87 mg/dL 0.57-1.25 Specimen slightly vptc=978) hemolyzed GLUCOSE RANDOM (BEAKER) 109 mg/dL 70-105 (test lqsu=067) CALCIUM (BEAKER) (test 8.9 mg/dL 8.4-10.2 vise=643) EGFR (BEAKER) (test 62 mL/min/1.73 sq m ESTIMATED GFR IS NOT qkxb=3546) ACCURATE CREATININE CLEARANCE IN PREDICTING GLOMERULAR FILTRATION RATE. ESTIMATED GFR IS NOT APPLICABLE FOR DIALYSIS PATIENTS. CBC (HEMOGRAM ONLY)2017-01-08 05:22:00 Test Item Value Reference Range Comments WHITE BLOOD CELL COUNT (BEAKER) (test rxag=958) 11.1 K/ L 4.0-10.0 RED BLOOD CELL COUNT (BEAKER) (test caua=013) 3.62 M/ L 4.00-5.00 HEMOGLOBIN (BEAKER) (test brso=023) 12.2 GM/DL 12.0-15.0 HEMATOCRIT (BEAKER) (test hukl=803) 36.3 % 36.0-45.0 MEAN CORPUSCULAR VOLUME (BEAKER) (test cpwo=303) 101.0 fL 82.0-99.0 MEAN CORPUSCULAR HEMOGLOBIN (BEAKER) (test 33.9 pg 27.0-33.0 agnu=259) MEAN CORPUSCULAR HEMOGLOBIN CONC (BEAKER) (test 33.7 GM/DL 32.0-36.0 zpih=866) RED CELL DISTRIBUTION WIDTH (BEAKER) (test 15.2 % 10.3-14.2 whth=068) PLATELET COUNT (BEAKER) (test fomj=614) 201 K/CU MM 150-430 MEAN PLATELET VOLUME (BEAKER) (test swdq=184) 7.6 fL 6.5-10.5 NUCLEATED RED BLOOD CELLS (BEAKER) (test 0 /100 WBC 0-0 ymzv=357) 0.00CBC (HEMOGRAM ONLY)2017-01-07 05:01:00 Test Item Value Reference Range Comments WHITE BLOOD CELL COUNT (BEAKER) (test eyoq=556) 5.8 K/ L 4.0-10.0 RED BLOOD CELL COUNT (BEAKER) (test mbwu=066) 3.68 M/ L 4.00-5.00 HEMOGLOBIN (BEAKER) (test bboq=792) 12.1 GM/DL 12.0-15.0 HEMATOCRIT (BEAKER) (test vjhr=515) 36.9 % 36.0-45.0 MEAN CORPUSCULAR VOLUME (BEAKER) (test bipg=748) 100.0 fL 82.0-99.0 MEAN CORPUSCULAR HEMOGLOBIN (BEAKER) (test 33.0 pg 27.0-33.0 rczp=959) MEAN CORPUSCULAR HEMOGLOBIN CONC (BEAKER) (test 32.8 GM/DL 32.0-36.0 vlcj=061) RED CELL DISTRIBUTION WIDTH (BEAKER) (test 13.5 % 10.3-14.2 bngk=843) PLATELET COUNT (BEAKER) (test mrhe=766) 204 K/CU MM 150-430 MEAN PLATELET VOLUME (BEAKER) (test stbw=398) 7.3 fL 6.5-10.5 NUCLEATED RED BLOOD CELLS (BEAKER) (test 0 /100 WBC 0-0 ygqu=390) [id number] 02:15:00 Test Item Value Reference Range Comments MAGNESIUM (BEAKER) (test ikqw=544) 2.2 mg/dL 1.6-2.6 BASIC METABOLIC [id number] 02:15:00 Test Item Value Reference Range Comments SODIUM (BEAKER) (test 142 meq/L 136-145 sfje=666) POTASSIUM (BEAKER) (test 4.0 meq/L 3.5-5.1 endv=423) CHLORIDE (BEAKER) (test 110 meq/L 98-107 dfio=820) CO2 (BEAKER) (test 23 meq/L 22-29 jlhq=933) BLOOD UREA NITROGEN 21 mg/dL 7-21 (BEAKER) (test ysec=815) CREATININE (BEAKER) (test 1.02 mg/dL 0.57-1.25 iwlz=144) GLUCOSE RANDOM (BEAKER) 102 mg/dL 70-105 (test mwha=356) CALCIUM (BEAKER) (test 8.9 mg/dL 8.4-10.2 dxav=195) EGFR (BEAKER) (test 51 mL/min/1.73 sq m ESTIMATED GFR IS NOT gqak=8236) ACCURATE CREATININE CLEARANCE IN PREDICTING GLOMERULAR FILTRATION RATE. ESTIMATED GFR IS NOT APPLICABLE FOR DIALYSIS PATIENTS. [id number] 02:02:00 Test Item Value Reference Range Comments PARTIAL THROMBOPLASTIN TIME (BEAKER) (test 67.1 seconds 22.5-36.0 nlac=043) CBC W/PLT COUNT & AUTO [id number] 01:59:00 Test Item Value Reference Range Comments WHITE BLOOD CELL COUNT (BEAKER) (test otme=653) 5.2 K/ L 4.0-10.0 RED BLOOD CELL COUNT (BEAKER) (test wfvm=174) 3.33 M/ L 4.00-5.00 HEMOGLOBIN (BEAKER) (test kywt=356) 11.4 GM/DL 12.0-15.0 HEMATOCRIT (BEAKER) (test hkgx=887) 33.5 % 36.0-45.0 MEAN CORPUSCULAR VOLUME (BEAKER) (test kmej=870) 101.0 fL 82.0-99.0 MEAN CORPUSCULAR HEMOGLOBIN (BEAKER) (test 34.4 pg 27.0-33.0 ygvp=513) MEAN CORPUSCULAR HEMOGLOBIN CONC (BEAKER) (test 34.1 GM/DL 32.0-36.0 nqpl=250) RED CELL DISTRIBUTION WIDTH (BEAKER) (test 13.5 % 10.3-14.2 tvfw=762) PLATELET COUNT (BEAKER) (test isie=866) 184 K/CU MM 150-430 MEAN PLATELET VOLUME (BEAKER) (test pkpm=844) 7.0 fL 6.5-10.5 NUCLEATED RED BLOOD CELLS (BEAKER) (test 0 /100 WBC 0-0 lblr=569) NEUTROPHILS RELATIVE PERCENT (BEAKER) (test 49 % dydx=054) LYMPHOCYTES RELATIVE PERCENT (BEAKER) (test 34 % arth=818) MONOCYTES RELATIVE PERCENT (BEAKER) (test 10 % epyl=057) EOSINOPHILS RELATIVE PERCENT (BEAKER) (test 7 % uxwq=381) BASOPHILS RELATIVE PERCENT (BEAKER) (test 0 % ufnd=641) NEUTROPHILS ABSOLUTE COUNT (BEAKER) (test 2.52 K/ L 1.80-8.00 xraf=893) LYMPHOCYTES ABSOLUTE COUNT (BEAKER) (test 1.75 K/ L 1.48-4.50 hmal=054) MONOCYTES ABSOLUTE COUNT (BEAKER) (test 0.54 K/ L 0.00-1.30 ggpc=379) EOSINOPHILS ABSOLUTE COUNT (BEAKER) (test 0.34 K/ L 0.00-0.50 sazu=060) BASOPHILS ABSOLUTE COUNT (BEAKER) (test 0.02 K/ L 0.00-0.20 emsg=897) 0.00DIGOXIN [id number] 18:00:00 Test Item Value Reference Range Comments DIGOXIN LEVEL (BEAKER) (test qjof=337) 0.4 ng/mL 0.8-2.0 TSH/FREE T4 IF [id number] 18:00:00 Test Item Value Reference Range Comments THYROID STIMULATING HORMONE (BEAKER) (test 1.47 uIU/mL 0.35-4.94 eshy=535) [id number] 17:35:00 Test Item Value Reference Range Comments MAGNESIUM (BEAKER) (test sgej=027) 2.4 mg/dL 1.6-2.6 Fasting lipid panelBASIC METABOLIC [id number] 17:35:00 Test Item Value Reference Range Comments SODIUM (BEAKER) (test 139 meq/L 136-145 pnlv=544) POTASSIUM (BEAKER) (test 3.9 meq/L 3.5-5.1 utjy=008) CHLORIDE (BEAKER) (test 105 meq/L 98-107 gggs=281) CO2 (BEAKER) (test 27 meq/L 22-29 tofw=754) BLOOD UREA NITROGEN 25 mg/dL 7-21 (BEAKER) (test tjwc=467) CREATININE (BEAKER) (test 1.24 mg/dL 0.57-1.25 xyru=673) GLUCOSE RANDOM (BEAKER) 91 mg/dL 70-105 (test avmt=029) CALCIUM (BEAKER) (test 9.4 mg/dL 8.4-10.2 fpuo=947) EGFR (BEAKER) (test 41 mL/min/1.73 sq m ESTIMATED GFR IS NOT bvyg=8492) ACCURATE CREATININE CLEARANCE IN PREDICTING GLOMERULAR FILTRATION RATE. ESTIMATED GFR IS NOT APPLICABLE FOR DIALYSIS PATIENTS. Fasting lipid panelLIPID [id number] 17:35:00 Test Item Value Reference Range Comments TRIGLYCERIDES (BEAKER) (test qxbs=198) 81 mg/dL CHOLESTEROL (BEAKER) (test zgcr=713) 224 mg/dL HDL CHOLESTEROL (BEAKER) (test wgdo=805) 96 mg/dL LDL CHOLESTEROL CALCULATED (BEAKER) (test 112 mg/dL tqcw=543) Triglyceride Reference Range: Low Risk <150 Borderline 150- 199 High Risk 200-499 Very High Risk >=500Cholesterol Reference Range: Low Risk <200 Borderline 200-239 High Risk > 240HDL Cholesterol Reference Range: Low Risk >=60 High Risk <40LDL Cholesterol Reference Range: Optimal <100 Near Optimal 100-129 Borderline 130-159 High 160-189 Very High >=190 Fasting lipid panelHEPATIC FUNCTION [id number] 17:35:00 Test Item Value Reference Range Comments TOTAL PROTEIN (BEAKER) (test lznh=710) 7.7 gm/dL 6.0-8.3 ALBUMIN (BEAKER) (test ptch=3925) 3.9 g/dL 3.5-5.0 BILIRUBIN TOTAL (BEAKER) (test pqta=837) 1.1 mg/dL 0.2-1.2 BILIRUBIN DIRECT (BEAKER) (test iujz=615) 0.5 mg/dL 0.1-0.5 ALKALINE PHOSPHATASE (BEAKER) (test qqdo=799) 120 U/L 40-150 AST (SGOT) (BEAKER) (test htmr=406) 19 U/L 5-34 ALT (SGPT) (BEAKER) (test vsyn=272) 19 U/L 6-55 Fasting lipid [id number] 17:24:00 Test Item Value Reference Range Comments PARTIAL THROMBOPLASTIN TIME (BEAKER) (test 37.0 seconds 22.5-36.0 giku=333) Prior to initiating heparinPROTHROMBIN TIME/[id number] 17:23:00 Test Item Value Reference Range Comments PROTIME (BEAKER) (test tsim=412) 14.3 seconds 11.7-14.7 INR (BEAKER) (test gsso=039) 1.1 <=5.9 RECOMMENDED COUMADIN/WARFARIN INR THERAPY RANGESSTANDARD DOSE: 2.0 - 3.0 Includes: PROPHYLAXIS forvenous thrombosis, systemic embolization; TREATMENT for venous thrombosis and/or pulmonary embolus.HIGH RISK: Target INR is 2.5-3.5 for patients with mechanical heart valves.Prior to initiating [id number] 17:23:00 Test Item Value Reference Range Comments PARTIAL THROMBOPLASTIN TIME (BEAKER) (test 36.6 seconds 22.5-36.0 mygl=663) Prior to initiating heparinCBC W/PLT COUNT & AUTO [id number] 17: 20:00 Test Item Value Reference Range Comments WHITE BLOOD CELL COUNT (BEAKER) (test ekfx=988) 6.1 K/ L 4.0-10.0 RED BLOOD CELL COUNT (BEAKER) (test qzru=288) 3.72 M/ L 4.00-5.00 HEMOGLOBIN (BEAKER) (test vfmp=655) 12.4 GM/DL 12.0-15.0 HEMATOCRIT (BEAKER) (test akpd=357) 37.4 % 36.0-45.0 MEAN CORPUSCULAR VOLUME (BEAKER) (test wwtp=916) 101.0 fL 82.0-99.0 MEAN CORPUSCULAR HEMOGLOBIN (BEAKER) (test 33.5 pg 27.0-33.0 zwdd=547) MEAN CORPUSCULAR HEMOGLOBIN CONC (BEAKER) (test 33.2 GM/DL 32.0-36.0 xmop=943) RED CELL DISTRIBUTION WIDTH (BEAKER) (test 13.5 % 10.3-14.2 jhjh=207) PLATELET COUNT (BEAKER) (test kaur=261) 219 K/CU MM 150-430 MEAN PLATELET VOLUME (BEAKER) (test dokp=237) 7.0 fL 6.5-10.5 NUCLEATED RED BLOOD CELLS (BEAKER) (test 0 /100 WBC 0-0 jcnc=342) NEUTROPHILS RELATIVE PERCENT (BEAKER) (test 51 % mocg=465) LYMPHOCYTES RELATIVE PERCENT (BEAKER) (test 33 % ytlo=263) MONOCYTES RELATIVE PERCENT (BEAKER) (test 10 % vzqa=838) EOSINOPHILS RELATIVE PERCENT (BEAKER) (test 5 % ikwn=603) BASOPHILS RELATIVE PERCENT (BEAKER) (test 1 % xvbu=801) NEUTROPHILS ABSOLUTE COUNT (BEAKER) (test 3.09 K/ L 1.80-8.00 apgz=053) LYMPHOCYTES ABSOLUTE COUNT (BEAKER) (test 1.99 K/ L 1.48-4.50 basf=717) MONOCYTES ABSOLUTE COUNT (BEAKER) (test 0.62 K/ L 0.00-1.30 elme=192) EOSINOPHILS ABSOLUTE COUNT (BEAKER) (test 0.31 K/ L 0.00-0.50 mnef=194) BASOPHILS ABSOLUTE COUNT (BEAKER) (test 0.08 K/ L 0.00-0.20 kvas=011) PLATELET [id number] 17:16:00 Test Item Value Reference Range Comments PLATELET COUNT (BEAKER) (test jjce=739) 219 K/CU MM 150-430 BASIC METABOLIC [id number] 04:55:00 Test Item Value Reference Range Comments SODIUM (BEAKER) (test 141 meq/L 136-145 oojj=276) POTASSIUM (BEAKER) (test 3.3 meq/L 3.5-5.1 azmj=301) CHLORIDE (BEAKER) (test 104 meq/L 98-107 nxav=192) CO2 (BEAKER) (test 28 meq/L 22-29 ascw=723) BLOOD UREA NITROGEN 14 mg/dL 7-21 (BEAKER) (test bwwk=138) CREATININE (BEAKER) (test 0.80 mg/dL 0.57-1.25 xnwf=109) GLUCOSE RANDOM (BEAKER) 97 mg/dL 70-105 (test wcrd=927) CALCIUM (BEAKER) (test 8.9 mg/dL 8.4-10.2 kovb=038) EGFR (BEAKER) (test 68 mL/min/1.73 sq m ESTIMATED GFR IS NOT qsrl=7584) ACCURATE CREATININE CLEARANCE IN PREDICTING GLOMERULAR FILTRATION RATE. ESTIMATED GFR IS NOT APPLICABLE FOR DIALYSIS PATIENTS. CBC (HEMOGRAM ONLY)2016-10-03 04:47:00 Test Item Value Reference Range Comments WHITE BLOOD CELL COUNT (BEAKER) (test iduo=091) 7.8 K/ L 4.0-10.0 RED BLOOD CELL COUNT (BEAKER) (test kfkt=284) 3.12 M/ L 4.00-5.00 HEMOGLOBIN (BEAKER) (test xsya=324) 11.2 GM/DL 12.0-15.0 HEMATOCRIT (BEAKER) (test qltk=006) 32.5 % 36.0-45.0 MEAN CORPUSCULAR VOLUME (BEAKER) (test qcrq=109) 104.0 fL 82.0-99.0 MEAN CORPUSCULAR HEMOGLOBIN (BEAKER) (test 35.8 pg 27.0-33.0 hbqs=929) MEAN CORPUSCULAR HEMOGLOBIN CONC (BEAKER) (test 34.4 GM/DL 32.0-36.0 fuot=998) RED CELL DISTRIBUTION WIDTH (BEAKER) (test 12.8 % 10.3-14.2 ovmw=470) PLATELET COUNT (BEAKER) (test upky=434) 190 K/CU MM 150-430 MEAN PLATELET VOLUME (BEAKER) (test ipzt=095) 7.4 fL 6.5-10.5 NUCLEATED RED BLOOD CELLS (BEAKER) (test 0 /100 WBC 0-0 iyqh=734) 0.00PT/[id number] 04:41:00 Test Item Value Reference Range Comments PROTIME (BEAKER) (test ymvq=619) 13.1 seconds 11.7-14.7 INR (BEAKER) (test rymn=330) 1.0 <=5.9 PARTIAL THROMBOPLASTIN TIME (BEAKER) (test 28.1 seconds 22.5-36.0 ngut=315) RECOMMENDED COUMADIN/WARFARIN INR THERAPY RANGESSTANDARD DOSE: 2.0 - 3.0 Includes: PROPHYLAXIS forvenous thrombosis, systemic embolization; TREATMENT for venous thrombosis and/or pulmonary embolus.HIGH RISK: Target INR is 2.5-3.5 for patients with mechanical heart valves.CREATINE KINASE (CK), TOTAL AND [id number] 04:53:00 Test Item Value Reference Range Comments CREATINE KINASE TOTAL (BEAKER) (test fpio=336) 36 U/L 29-200 CREATINE KINASE-MB (BEAKER) (test yoxu=334) 1.6 ng/mL 0.0-6.6 CREATINE KINASE-MB INDEX (BEAKER) (test gjaq=711) 4.4 % Effective 06/14/2014: CK-MB Reference Range ChangeNew: 0.0-6.6 Previous: 0.0- 4.9CK-MB Reference Range:<6.7 Normal6.7-10.0 Borderline>10.0 AbnormalTROPONIN [id number] 04:53:00 Test Item Value Reference Range Comments TROPONIN I (BEAKER) (test bpmt=481) 0.03 ng/mL 0.00-0.03 Effective 06/14/2014: Reference Range [...] acute neurological disease, and persistent tachyarrhythmia.BASIC METABOLIC [id number] 04:46:00 Test Item Value Reference Range Comments SODIUM (BEAKER) (test 139 meq/L 136-145 baan=573) POTASSIUM (BEAKER) (test 3.7 meq/L 3.5-5.1 nlvi=383) CHLORIDE (BEAKER) (test 104 meq/L 98-107 obql=255) CO2 (BEAKER) (test 27 meq/L 22-29 xbri=310) BLOOD UREA NITROGEN 14 mg/dL 7-21 (BEAKER) (test ztkp=687) CREATININE (BEAKER) (test 0.82 mg/dL 0.57-1.25 cqya=316) GLUCOSE RANDOM (BEAKER) 102 mg/dL 70-105 (test kjbn=214) CALCIUM (BEAKER) (test 9.1 mg/dL 8.4-10.2 rfpm=027) EGFR (BEAKER) (test 66 mL/min/1.73 sq m ESTIMATED GFR IS NOT rlow=4382) ACCURATE CREATININE CLEARANCE IN PREDICTING GLOMERULAR FILTRATION RATE. ESTIMATED GFR IS NOT APPLICABLE FOR DIALYSIS PATIENTS. PT/[id number] 04:41:00 Test Item Value Reference Range Comments PROTIME (BEAKER) (test kuwg=576) 13.5 seconds 11.7-14.7 INR (BEAKER) (test boie=549) 1.0 <=5.9 PARTIAL THROMBOPLASTIN TIME (BEAKER) (test 33.1 seconds 22.5-36.0 laqr=249) RECOMMENDED COUMADIN/WARFARIN INR THERAPY RANGESSTANDARD DOSE: 2.0 - 3.0 Includes: PROPHYLAXIS forvenous thrombosis, systemic embolization; TREATMENT for venous thrombosis and/or pulmonary embolus.HIGH RISK: Target INR is 2.5-3.5 for patients with mechanical heart valves.CBC (HEMOGRAM ONLY)2016-10-02 04:33:00 Test Item Value Reference Range Comments WHITE BLOOD CELL COUNT (BEAKER) (test foxp=800) 9.4 K/ L 4.0-10.0 RED BLOOD CELL COUNT (BEAKER) (test fskq=511) 3.07 M/ L 4.00-5.00 HEMOGLOBIN (BEAKER) (test lexm=865) 11.0 GM/DL 12.0-15.0 HEMATOCRIT (BEAKER) (test oxwo=122) 31.9 % 36.0-45.0 MEAN CORPUSCULAR VOLUME (BEAKER) (test fkvq=219) 104.0 fL 82.0-99.0 MEAN CORPUSCULAR HEMOGLOBIN (BEAKER) (test 36.0 pg 27.0-33.0 kwbv=659) MEAN CORPUSCULAR HEMOGLOBIN CONC (BEAKER) (test 34.6 GM/DL 32.0-36.0 ocqs=567) RED CELL DISTRIBUTION WIDTH (BEAKER) (test 12.7 % 10.3-14.2 fhqu=960) PLATELET COUNT (BEAKER) (test pyzg=768) 205 K/CU MM 150-430 MEAN PLATELET VOLUME (BEAKER) (test btbv=973) 7.3 fL 6.5-10.5 NUCLEATED RED BLOOD CELLS (BEAKER) (test 0 /100 WBC 0-0 ozfi=114) 0.00TSH/FREE T4 IF [id number] 19:30:00 Test Item Value Reference Range Comments THYROID STIMULATING HORMONE (BEAKER) (test 0.43 uIU/mL 0.35-4.94 vcrc=327) CREATINE KINASE (CK), TOTAL AND [id number] 19:14:00 Test Item Value Reference Range Comments CREATINE KINASE TOTAL (BEAKER) (test nsvm=861) 53 U/L 29-200 CREATINE KINASE-MB (BEAKER) (test wdmh=521) 2.6 ng/mL 0.0-6.6 CREATINE KINASE-MB INDEX (BEAKER) (test hrnp=831) 4.9 % Effective 06/14/2014: CK-MB Reference Range ChangeNew: 0.0-6.6 Previous: 0.0- 4.9CK-MB Reference Range:<6.7 Normal6.7-10.0 Borderline>10.0 AbnormalTROPONIN [id number] 19:14:00 Test Item Value Reference Range Comments TROPONIN I (BEAKER) (test nuun=047) 0.01 ng/mL 0.00-0.03 Effective 06/14/2014: Reference Range [...] renalfailure, acidosis, acute neurological disease, and persistent tachyarrhythmia.[id number] 15:20: 00 Test Item Value Reference Range Comments MAGNESIUM (BEAKER) (test fzku=404) 1.9 mg/dL 1.6-2.6 BASIC METABOLIC [id number] 15:20:00 Test Item Value Reference Range Comments SODIUM (BEAKER) (test 141 meq/L 136-145 fzro=081) POTASSIUM (BEAKER) (test 3.9 meq/L 3.5-5.1 pgqq=452) CHLORIDE (BEAKER) (test 108 meq/L 98-107 ydjz=459) CO2 (BEAKER) (test 25 meq/L 22-29 dhtf=193) BLOOD UREA NITROGEN 14 mg/dL 7-21 (BEAKER) (test qjci=521) CREATININE (BEAKER) (test 0.84 mg/dL 0.57-1.25 aprp=890) GLUCOSE RANDOM (BEAKER) 130 mg/dL 70-105 (test zdkp=363) CALCIUM (BEAKER) (test 8.8 mg/dL 8.4-10.2 pumj=530) EGFR (BEAKER) (test 64 mL/min/1.73 sq m ESTIMATED GFR IS NOT pyal=1618) ACCURATE CREATININE CLEARANCE IN PREDICTING GLOMERULAR FILTRATION RATE. ESTIMATED GFR IS NOT APPLICABLE FOR DIALYSIS PATIENTS. CBC (HEMOGRAM ONLY)2016-10-01 14:52:00 Test Item Value Reference Range Comments WHITE BLOOD CELL COUNT (BEAKER) (test gjmd=791) 10.1 K/ L 4.0-10.0 RED BLOOD CELL COUNT (BEAKER) (test vsgp=653) 3.40 M/ L 4.00-5.00 HEMOGLOBIN (BEAKER) (test pmbt=795) 11.9 GM/DL 12.0-15.0 HEMATOCRIT (BEAKER) (test jgfk=951) 34.6 % 36.0-45.0 MEAN CORPUSCULAR VOLUME (BEAKER) (test fjta=471) 102.0 fL 82.0-99.0 MEAN CORPUSCULAR HEMOGLOBIN (BEAKER) (test 35.1 pg 27.0-33.0 kmsf=854) MEAN CORPUSCULAR HEMOGLOBIN CONC (BEAKER) (test 34.5 GM/DL 32.0-36.0 qpbr=670) RED CELL DISTRIBUTION WIDTH (BEAKER) (test 13.5 % 10.3-14.2 mmdb=681) PLATELET COUNT (BEAKER) (test djmz=918) 204 K/CU MM 150-430 MEAN PLATELET VOLUME (BEAKER) (test ffxf=710) 7.4 fL 6.5-10.5 NUCLEATED RED BLOOD CELLS (BEAKER) (test 0 /100 WBC 0-0 smja=589) 0.00BASIC METABOLIC [id number] 11:00:00 Test Item Value Reference Range Comments SODIUM (BEAKER) (test 142 meq/L 136-145 gozr=569) POTASSIUM (BEAKER) (test 4.5 meq/L 3.5-5.1 bfxb=125) CHLORIDE (BEAKER) (test 103 meq/L 98-107 vkpk=459) CO2 (BEAKER) (test 28 meq/L 22-29 znmj=583) BLOOD UREA NITROGEN 28 mg/dL 7-21 (BEAKER) (test kuih=644) CREATININE (BEAKER) (test 1.04 mg/dL 0.57-1.25 ocgp=884) GLUCOSE RANDOM (BEAKER) 98 mg/dL 70-105 (test scei=846) CALCIUM (BEAKER) (test 9.8 mg/dL 8.4-10.2 ntko=071) EGFR (BEAKER) (test 50 mL/min/1.73 sq m ESTIMATED GFR IS NOT lnnz=2856) ACCURATE CREATININE CLEARANCE IN PREDICTING GLOMERULAR FILTRATION RATE. ESTIMATED GFR IS NOT APPLICABLE FOR DIALYSIS PATIENTS. CBC W/PLT COUNT & AUTO [id number] 10:59:00 Test Item Value Reference Range Comments WHITE BLOOD CELL COUNT (BEAKER) (test sjss=994) 7.0 K/ L 4.0-10.0 RED BLOOD CELL COUNT (BEAKER) (test ljrl=721) 3.77 M/ L 4.00-5.00 HEMOGLOBIN (BEAKER) (test atvf=422) 13.2 GM/DL 12.0-15.0 HEMATOCRIT (BEAKER) (test fpki=415) 38.5 % 36.0-45.0 MEAN CORPUSCULAR VOLUME (BEAKER) (test qwcd=549) 102.0 fL 82.0-99.0 MEAN CORPUSCULAR HEMOGLOBIN (BEAKER) (test 34.9 pg 27.0-33.0 sgph=608) MEAN CORPUSCULAR HEMOGLOBIN CONC (BEAKER) (test 34.2 GM/DL 32.0-36.0 roxp=088) RED CELL DISTRIBUTION WIDTH (BEAKER) (test 13.6 % 10.3-14.2 hrsd=681) PLATELET COUNT (BEAKER) (test ubuo=440) 233 K/CU MM 150-430 MEAN PLATELET VOLUME (BEAKER) (test xnty=811) 7.3 fL 6.5-10.5 NUCLEATED RED BLOOD CELLS (BEAKER) (test 0 /100 WBC 0-0 ajgv=122) NEUTROPHILS RELATIVE PERCENT (BEAKER) (test 60 % iydk=025) LYMPHOCYTES RELATIVE PERCENT (BEAKER) (test 27 % wsjx=180) MONOCYTES RELATIVE PERCENT (BEAKER) (test 9 % nkot=345) EOSINOPHILS RELATIVE PERCENT (BEAKER) (test 3 % owna=877) BASOPHILS RELATIVE PERCENT (BEAKER) (test 1 % qjme=121) NEUTROPHILS ABSOLUTE COUNT (BEAKER) (test 4.20 K/ L 1.80-8.00 cxpc=904) LYMPHOCYTES ABSOLUTE COUNT (BEAKER) (test 1.92 K/ L 1.48-4.50 tbrw=531) MONOCYTES ABSOLUTE COUNT (BEAKER) (test 0.60 K/ L 0.00-1.30 sefw=198) EOSINOPHILS ABSOLUTE COUNT (BEAKER) (test 0.23 K/ L 0.00-0.50 rpcu=304) BASOPHILS ABSOLUTE COUNT (BEAKER) (test 0.07 K/ L 0.00-0.20 jysi=294) 0.00PT/[id number] 10:58:00 Test Item Value Reference Range Comments PROTIME (BEAKER) (test zrjv=411) 12.7 seconds 11.7-14.7 INR (BEAKER) (test gnbp=932) 1.0 <=5.9 PARTIAL THROMBOPLASTIN TIME (BEAKER) (test 29.7 seconds 22.5-36.0 imna=093) RECOMMENDED COUMADIN/WARFARIN INR THERAPY RANGESSTANDARD DOSE: 2.0 - 3.0 Includes: PROPHYLAXIS forvenous thrombosis, systemic embolization; TREATMENT for venous thrombosis and/or pulmonary embolus.HIGH RISK: Target INR is 2.5-3.5 for patients with mechanical heart valves.
[2018-08-13 20:15] LABS: Protime INR 1.44
--- NOTE | 2018-08-13 20:20 | RAD REPORT ---
EXAM DESCRIPTION: Bryan Single View08/13/2018 8:07 pm CLINICAL HISTORY: sob COMPARISON: May 2018 FINDINGS: Mild bilateral interstitial lung opacities are present. The heart is moderately enlarged. Pacemaker leads are in place. IMPRESSION: Mild CHF
[2018-08-13 20:23] LABS: ALT/SGPT 13 U/L (12-78); AST/SGOT 16 U/L (15-37); Albumin 3.4 g/dL (3.4-5.0); Alkaline Phosphatase 73 U/L (45-117); BUN Blood Urea Nitrogen 45 mg/dL (7-18); Bicarbonate 22 mmol/L (21-32); Bilirubin Direct 0.1 mg/dL (0-0.2); Bilirubin Total 0.3 mg/dL (0.2-1.0); Glucose Level 91 mg/dL (74-106); Magnesium 2.6 mg/dL (1.8-2.4); NT PRO-BNP 5238 pg/mL (<450); Potassium 4.9 mmol/L (3.5-5.1); Protein, Total 6.4 g/dL (6.4-8.2); Sodium Level 137 mmol/L (136-145); Troponin (Emerg Dept Use Only) < 0.02 ng/mL (0.0-0.045)
[2018-08-13 22:06] LABS: Urine Blood NEGATIVE (NEG); Urine Glucose NEGATIVE (NEG); Urine Protein NEGATIVE (NEG); Urine pH 5.5 (5.0-7.0)
[2018-08-13] MEDS ORDERED: NA CHLORIDE 0.9% 1,000 ML ONE (22:31)
--- NOTE | 2018-08-13 22:39 | EDPHYS ---
Physician Documentation [facility] Name: Nikky Ocampo Age: 88 yrs Sex: Female : 1930 Arrival Date: 08/13/2018 Time: 16:31 Bed 23 Private MD: ED Physician Chris Spencer HPI: 08/13 22:35 This 88 yrs old Female presents to ER via Wheelchair with complaints of gs Breathing Difficulty, Abnormal Lab Results. 22:35 The patient has shortness of breath with light activity, during heavy activity. Onset: gs The symptoms/episode began/occurred 2 day(s) ago, and became worse and became persistent. Duration: The symptoms are continuous. The patient's shortness of breath is aggravated by exertion, walking. Associated signs and symptoms: Pertinent negatives: chest pain, gi bleeding. Severity of symptoms: At their worst the symptoms were moderate in the emergency department the symptoms are unchanged. The patient has experienced similar episodes in the past, a few times. 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 22:[address] fernandes states not gi bleeding. gs Historical: - Allergies: 16:42 Bosulif; hb 16:42 Codeine; hb - Home Meds: 16:42 Allergy Medicine Oral [Active]; aspercreme lotion 10% PRN [Active]; Bosulif 100 mg Oral hb tab 3 tabs once daily [Active]; cranberry Oral [Active]; dasatinib Oral [Active]; digoxin 125 mcg Oral tab 1 tab Every other day [Active]; Econazole Nitrate Cream [Active]; Eliquis 5.5 Oral 1 tab 2 times per day [Active]; Estrace CREAM Oral [Active]; fluconazole Oral [Active]; fluticasone nasal [Active]; gabapentin 400 mg Oral cap 2 cap 4x per day [Active]; levothyroxine 50 mcg tab 1 tab once daily [Active]; metoprolol succinate 25 mg Oral Tb24 twice a day [Active]; preser vision [Active]; ranitidine HCl 150 mg Oral cap once daily [Active]; Restasis ophthalmic [Active]; spironolactone 50 mg Oral tab 1 tab once daily [Active]; Spironolactone Oral [Active]; tramadol 50 mg Oral tab 1 tab once a day [Active]; Bactrim DS 800-160 mg Oral tab 1 tab q12 hours x 10 days [Active]; - PMHx: 16:42 Chronic leukemia; colon cancer; Hypertension; Pacemaker; CHF; hb - PSHx: 16:42 Carotid surgery; hb - Immunization history:: Adult Immunizations up to date. - Social history:: Smoking status: Patient/guardian denies using tobacco. - Ebola Screening: : No symptoms or risks identified at this time. ROS: 22:35 All other systems are negative. gs Exam: 22:35 Head/Face: Normocephalic, atraumatic. Eyes: Pupils equal round and reactive to light, gs extra-ocular motions intact. Lids and lashes normal. Conjunctiva and sclera are non-icteric and not injected. Cornea within normal limits. Periorbital areas with no swelling, redness, or edema. ENT: Nares patent. No nasal discharge, no septal abnormalities noted. Tympanic membranes are normal and external auditory canals are clear. Oropharynx with no redness, swelling, or masses, exudates, or evidence of obstruction, uvula midline. Mucous membranes moist. Neck: Trachea midline, no thyromegaly or masses palpated, and no cervical lymphadenopathy. Supple, full range of motion without nuchal rigidity, or vertebral point tenderness. No Meningismus. Chest/axilla: Normal chest wall appearance and motion. Nontender with no deformity. No lesions are appreciated. Cardiovascular: Regular rate and rhythm with a normal S1 and S2. No gallops, murmurs, or rubs. Normal PMI, no JVD. No pulse deficits. Respiratory: Lungs have equal breath sounds bilaterally, clear to auscultation and percussion. No rales, rhonchi or wheezes noted. No increased work of breathing, no retractions or nasal flaring. Abdomen/GI: Soft, non-tender, with normal bowel sounds. No distension or tympany. No guarding or rebound. No evidence of tenderness throughout. Back: No spinal tenderness. No costovertebral tenderness. Full range of motion. Skin: Warm, dry with normal turgor. Normal color with no rashes, no lesions, and no evidence of cellulitis. MS/ Extremity: Pulses equal, no cyanosis. Neurovascular intact. Full, normal range of motion. Neuro: Awake and alert, GCS 15, oriented to person, place, time, and situation. Cranial nerves II-XII grossly intact. Motor strength 5/5 in all extremities. Sensory grossly intact. Cerebellar exam normal. Normal gait. 22:35 Constitutional: The patient appears alert, awake. 22:35 ECG was reviewed by the Attending Physician. Vital Signs: 16:40 BP 126 / 47; Pulse 96; Resp 18; Temp 97.9; Pulse Ox 95% on R/A; Pain 0/10; hb 17:00 BP 126 / 65; Pulse 70; Resp 18; Pulse Ox 95% on R/A; Pain 0/10; ch 18:42 BP 116 / 78; Pulse 76; Resp 18; Pulse Ox 96% on R/A; Pain 0/10; ch 19:10 BP 107 / 52; Pulse 74; Resp 16; Pulse Ox 95% on R/A; Pain 0/10; rr5 20:00 BP 133 / 51; Pulse 62; Resp 15; Pulse Ox 97% on 3 lpm NC; rr5 20:44 BP 125 / 92; Pulse 60; Resp 17; Pulse Ox 100% on 3 lpm NC; rr5 21:30 BP 115 / 46; Pulse 59; Resp 16; Pulse Ox 98% on 3 lpm NC; rr5 22:30 BP 130 / 43; Pulse 62; Resp 15; Pulse Ox 99% on 3 lpm NC; rr5 23:30 BP 111 / 68; Pulse 62; Resp 17; Pulse Ox 98% on 3 lpm NC; rr5 01/18 00:30 BP 110 / 59; Pulse 60; Resp 17; Pulse Ox 99% on 3 lpm NC; rr5 01:00 BP 112 / 45; Pulse 61; Resp 19; Pulse Ox 100% on 3 lpm NC; rv 01:30 BP 118 / 34; Pulse 63; Resp 15; Pulse Ox 100% on 3 lpm NC; rv 02:00 BP 119 / 44; Pulse 60; Resp 21; Pulse Ox 100% on 3 lpm NC; rv 02:30 BP 121 / 50; Pulse 82; Resp 22; Pulse Ox 100% on 3 lpm NC; rv MDM: 08/13 19:17 Patient medically screened. 22:35 Differential diagnosis: Anemia CHF exacerbation, Chronic Obstructive Pulmonary Disease gs Myocardial Infarction pneumonia. Data reviewed: vital signs, nurses notes. Counseling: I had a detailed discussion with the patient and/or guardian regarding: the historical points, exam findings, and any diagnostic results supporting the discharge/admit diagnosis, the need for further work-up and treatment in the hospital. 08/13 19:18 Order name: Basic Metabolic Panel; Complete Time: 22:08 08/13 19:18 Order name: CBC with Diff; Complete Time: 00:28 08/13 19:18 Order name: LFT's; Complete Time: 22:08 08/13 19:18 Order name: Magnesium; Complete Time: 22: 08/13 19:18 Order name: NT PRO-BNP; Complete Time: 22:08 08/13 19:18 Order name: PT-INR; Complete Time: 22: 08/13 19:18 Order name: Troponin (emerg Dept Use Only); Complete Time: 22: 08/13 19:18 Order name: Type And Screen 08/13 21:15 Order name: Urine Dipstick--Ancillary (enter results); Complete Time: 22:08 ag4 08/14 00:35 Order name: Basic Metabolic Panel EDAR 08/14 00:35 Order name: Basic Metabolic Panel EDMS 08/14 00:35 Order name: CBC with Automated Diff EDMS 08/14 00:35 Order name: CBC with Automated Diff EDMS 08/14 00:35 Order name: Hematocrit EDAR 08/13 19:18 Order name: XRAY Chest (1 view); Complete Time: 22:08 08/13 19:18 Order name: EKG; Complete Time: 19:21 08/14 00:35 Order name: CONS Pharmacy Consult EDMS 08/14 00:35 Order name: CONS Physician Consult EDMS 08/14 00:35 Order name: NPO EDMS 08/14 00:35 Order name: Hematocrit EDMS 08/14 00:35 Order name: Hematocrit EDMS 08/14 00:35 Order name: Hemoglobin EDMS 08/14 00:35 Order name: Hemoglobin EDMS 08/14 00:35 Order name: Hemoglobin EDMS 08/14 00:35 Order name: Protime (+INR) EDMS 08/14 00:35 Order name: Protime (+INR) EDMS 08/14 00:35 Order name: PTT, Activated Partial Thromb EDMS 01/18 00:35 Order name: PTT, Activated Partial Thromb EDMS 08/14 00:36 Order name: BB Add On EDMS 08/13 19:18 Order name: Cardiac monitoring; Complete Time: 19:53 08/13 19:18 Order name: EKG - Nurse/Tech; Complete Time: 20:05 08/13 19:18 Order name: IV Saline Lock; Complete Time: 19:53 08/13 19:18 Order name: Labs collected and sent; Complete Time: 19:53 08/13 19:18 Order name: O2 Per Protocol; Complete Time: 19:53 08/13 19:18 Order name: O2 Sat Monitoring; Complete Time: 19:53 08/14 00:35 Order name: EKG Electrocardiogram EDMS 08/14 00:35 Order name: EKG Electrocardiogram EDMS 08/14 00:35 Order name: EKG Electrocardiogram EDMS 08/14 00:35 Order name: EKG Electrocardiogram EDMS 08/14 00:35 Order name: EKG Electrocardiogram EDMS 08/14 00:35 Order name: EKG Electrocardiogram EDMS 08/14 00:35 Order name: EKG Electrocardiogram EDMS 08/14 00:35 Order name: EKG Electrocardiogram EDMS 08/14 00:35 Order name: EKG Electrocardiogram EDMS 08/14 00:35 Order name: EKG Electrocardiogram EDMS 08/14 00:35 Order name: EKG Electrocardiogram EDMS EC:35 Rate is 72 beats/min. Rhythm is regular with AV sequential paced. QRS interval is gs prolonged. T waves are Inverted. Clinical impression: NSR w/ Non-specific ST/T Changes and Abnormal EKG without significant change. Interpreted by me. Administered Medications: 22:26 Drug: NS 0.9% 1000 ml Route: IV; Rate: 125 ml/hr; Site: left antecubital; rr5 08/14 04:40 Follow up: IV Status: IV paused for blood transfusion bb Disposition: 08/13 22:35 Critical Care:. Disposition: 08/13/18 22:38 Hospitalization ordered by Tanner Pearl for Observation. Preliminary diagnosis is Anemia due to antineoplastic chemotherapy. - Bed requested for Intensive Care Unit. - Status is Observation. bb - Condition is Stable. - Problem is new. - Symptoms have improved. UTI on Admission? No Critical care time excluding procedures: 22:35 Critical care time: Bedside Care: 10 minutes, Consultation: 10 minutes, Family gs Intervention: 10 minutes. Total time: 30 minutes Signatures: Dispatcher [employer] EDMS Alana Briggs RN Lauren Evans RN RN bb Baxter, Heather, RN RN hb Starr, Gregory, MD MD gs Roque, Raymond RN RN rr5 Corrections: (The following items were deleted from the chart) 22:53 22:38 Hospitalization Ordered by Tanner Pearl MD for Observation. Preliminary mw diagnosis is Anemia due to antineoplastic chemotherapy. Bed requested for Telemetry/MedSurg (observation). Status is Observation. Condition is Stable. Problem is new. Symptoms have improved. UTI on Admission? No. gs 08/14 00:58 08/13 22:53 08/13/2018 22:38 Hospitalization Ordered by Tanner Pearl MD for gs Observation. Preliminary diagnosis is Anemia due to antineoplastic chemotherapy. Bed requested for Telemetry/MedSurg (observation). Status is Observation. Condition is Stable. Problem is new. Symptoms have improved. UTI on Admission? No. mw 08/14 01:50 00:58 08/13/2018 22:38 Hospitalization Ordered by Tanner Pearl MD for Observation. mw Preliminary diagnosis is Anemia due to antineoplastic chemotherapy. Bed requested for Intensive Care Unit. Status is Observation. Condition is Stable. Problem is new. Symptoms have improved. UTI on Admission? No. gs 04:41 01:50 08/13/2018 22:38 Hospitalization Ordered by Tanner Pearl MD for Observation. bb Preliminary diagnosis is Anemia due to antineoplastic chemotherapy. Bed requested for Intensive Care Unit. Status is Observation. Condition is Stable. Problem is new. Symptoms have improved. UTI on Admission? No. mw
--- NOTE | 2018-08-13 22:39 | ER ---
Nurse's Notes [facility] Name: Nikky Ocampo Age: 88 yrs Sex: Female : 1930 Arrival Date: 08/13/2018 Time: 16:31 Bed 23 Private MD: Diagnosis: Anemia due to antineoplastic chemotherapy Presentation: 08/13 16:35 Presenting complaint: SOB x 2 days. Transition of care: patient was not received from another setting of care. Onset of symptoms was August 12, 2018. Risk Assessment: Do you want to hurt yourself or someone else? Patient reports no desire to harm self or others. Care prior to arrival: None. 16:35 Method Of Arrival: Wheelchair 16:35 Acuity: TASIA 3 08/14 02:15 Initial Sepsis Screen: Does the patient meet any 2 criteria? No. Patient's initial rv sepsis screen is negative. Does the patient have a suspected source of infection? No. Patient's initial sepsis screen is negative. Triage Assessment: 02:14 General: Appears in no apparent distress. uncomfortable. Respiratory: Onset: The rv symptoms/episode began/occurred yesterday, the patient has mild shortness of breath. Respiratory: Breath sounds are clear bilaterally. Respiratory: Airway is patent. Respiratory: Onset: The symptoms/episode began/occurred Historical: - Allergies: 08/13 16:42 Bosulif; hb 16:42 Codeine; - Home Meds: 16:42 Allergy Medicine Oral [Active]; aspercreme lotion 10% PRN [Active]; Bosulif 100 mg Oral hb tab 3 tabs once daily [Active]; cranberry Oral [Active]; dasatinib Oral [Active]; digoxin 125 mcg Oral tab 1 tab Every other day [Active]; Econazole Nitrate Cream [Active]; Eliquis 5.5 Oral 1 tab 2 times per day [Active]; Estrace CREAM Oral [Active]; fluconazole Oral [Active]; fluticasone nasal [Active]; gabapentin 400 mg Oral cap 2 cap 4x per day [Active]; levothyroxine 50 mcg tab 1 tab once daily [Active]; metoprolol succinate 25 mg Oral Tb24 twice a day [Active]; preser vision [Active]; ranitidine HCl 150 mg Oral cap once daily [Active]; Restasis ophthalmic [Active]; spironolactone 50 mg Oral tab 1 tab once daily [Active]; Spironolactone Oral [Active]; tramadol 50 mg Oral tab 1 tab once a day [Active]; Bactrim DS 800-160 mg Oral tab 1 tab q12 hours x 10 days [Active]; - PMHx: 16:42 Chronic leukemia; colon cancer; Hypertension; Pacemaker; CHF; hb - PSHx: 16:42 Carotid surgery; hb - Immunization history:: Adult Immunizations up to date. - Social history:: Smoking status: Patient/guardian denies using tobacco. - Ebola Screening: : No symptoms or risks identified at this time. Screenin:43 Abuse screen: Denies threats or abuse. Denies injuries from another. Nutritional hb screening: No deficits noted. Tuberculosis screening: No symptoms or risk factors identified. Fall Risk Total Wharton Fall Scale indicates Low Risk Score (25-44 pts). Assessment: 18:25 Reassessment: Patient appears in no apparent distress at this time. No changes from previously documented assessment. Patient and/or family updated on plan of care and expected duration. Pain level reassessed. Awaiting provider to see pt. 18:40 Pain: Denies pain. Cardiovascular: Heart tones S1 S2 present Capillary refill < 3 ch seconds Clubbing of nail beds is present Pulses are all present. Edema is absent. Respiratory: Reports shortness of breath at rest pt states this happens, it comes and goes. Airway is patent Trachea midline Respiratory effort is even, unlabored, Respiratory pattern is regular, Breath sounds are coarse bilaterally. Breath sounds are diminished bilaterally. GI: No signs and/or symptoms were reported involving the gastrointestinal system. Derm: Skin is pale. 19:06 Reassessment: Patient appears in no apparent distress at this time. No changes from previously documented assessment. Patient and/or family updated on plan of care and expected duration. Pain level reassessed. pt appears SOB. 19:19 General: Appears in no apparent distress. comfortable, Behavior is calm, cooperative, rr5 appropriate for age. Pain: Denies pain. Neuro: Level of Consciousness is awake, alert, obeys commands, Oriented to person, place, time, situation. Respiratory: Airway is patent Respiratory effort is even, unlabored, Respiratory pattern is regular, symmetrical. GI: No signs and/or symptoms were reported involving the gastrointestinal system. : No signs and/or symptoms were reported regarding the genitourinary system. EENT: No signs and/or symptoms were reported regarding the EENT system. Derm: Skin is pale. Musculoskeletal: Capillary refill is > 3 seconds, Range of motion: intact in all extremities. 19:19 Cardiovascular: Rhythm is with pacemaker. rr5 20:05 Reassessment: Patient appears in no apparent distress at this time. No changes from rr5 previously documented assessment. no complaints made. 21:00 Reassessment: Patient appears in no apparent distress at this time. No changes from rr5 previously documented assessment. awaiting for reports. 22:15 Reassessment: Patient appears in no apparent distress at this time. Patient is alert, rr5 oriented x 3, equal unlabored respirations, skin warm/dry/pink. no complaints made. 23:15 Reassessment: Patient appears in no apparent distress at this time. No changes from rr5 previously documented assessment. awaiting for orders in [facility] for the admission. 08/14 00:20 Reassessment: Patient appears in no apparent distress at this time. No changes from rr5 previously documented assessment. Patient is alert, oriented x 3, equal unlabored respirations, skin warm/dry/pink. awaiting for the hospitalist for the order to be made. 02:13 Reassessment: Patient appears in no apparent distress at this time. No changes from rv previously documented assessment. Patient is alert, oriented x 3, equal unlabored respirations, skin warm/dry/pink. 03:20 Reassessment: pt is A\T\O x 4, resp unlabored, signed consent for blood transfusion, IV bb site intact, patent, with fluids infusing. Family at bedside. Reassessment: pt is A\T\O x 4, resp unlabored, blood infusing to 20 g in L AC, pt transported to ICU via stretcher with family by this RN and Shelbie allred. Vital Signs: 08/13 16:40 BP 126 / 47; Pulse 96; Resp 18; Temp 97.9; Pulse Ox 95% on R/A; Pain 0/10; hb 17:00 BP 126 / 65; Pulse 70; Resp 18; Pulse Ox 95% on R/A; Pain 0/10; ch 18:42 BP 116 / 78; Pulse 76; Resp 18; Pulse Ox 96% on R/A; Pain 0/10; ch 19:10 BP 107 / 52; Pulse 74; Resp 16; Pulse Ox 95% on R/A; Pain 0/10; rr5 20:00 BP 133 / 51; Pulse 62; Resp 15; Pulse Ox 97% on 3 lpm NC; rr5 20:44 BP 125 / 92; Pulse 60; Resp 17; Pulse Ox 100% on 3 lpm NC; rr5 21:30 BP 115 / 46; Pulse 59; Resp 16; Pulse Ox 98% on 3 lpm NC; rr5 22:30 BP 130 / 43; Pulse 62; Resp 15; Pulse Ox 99% on 3 lpm NC; rr5 23:30 BP 111 / 68; Pulse 62; Resp 17; Pulse Ox 98% on 3 lpm NC; rr5 18 00:30 BP 110 / 59; Pulse 60; Resp 17; Pulse Ox 99% on 3 lpm NC; rr5 01:00 BP 112 / 45; Pulse 61; Resp 19; Pulse Ox 100% on 3 lpm NC; rv 01:30 BP 118 / 34; Pulse 63; Resp 15; Pulse Ox 100% on 3 lpm NC; rv 02:00 BP 119 / 44; Pulse 60; Resp 21; Pulse Ox 100% on 3 lpm NC; rv 02:30 BP 121 / 50; Pulse 82; Resp 22; Pulse Ox 100% on 3 lpm NC; rv ED Course: 08/13 16:31 Patient arrived in ED. rg4 16:40 Triage completed. hb 16:41 Arm band placed on. hb 17:51 Alize Lacy, RN is Primary Nurse. ch 18:42 No apparent distress. Resting quietly. ch 18:42 Patient has correct armband on for positive identification. Placed in gown. Bed in low ch position. Call light in reach. Side rails up X 1. Adult w/ patient. Pulse ox on. NIBP on. Warm blanket given. 19:04 Chris Spencer MD is Attending Physician. gs 19:06 Report given to Bryan WILBURN. ch 19:18 Bryan Hale, RN is Primary Nurse. rr5 19:45 Inserted saline lock: 20 gauge in left antecubital area, using aseptic technique. Blood ds4 collected. 19:52 shelter monitor on. rr5 20:07 XRAY Chest (1 view) In Process Unspecified. EDMS 20:13 Basic Metabolic Panel Sent. ds4 20:13 Type And Screen Sent. ds4 20:13 LFT's Sent. ds4 20:13 CBC with Diff Sent. ds4 20:13 Magnesium Sent. ds4 20:13 NT PRO-BNP Sent. ds4 20:13 PT-INR Sent. ds4 20:13 Troponin (emerg Dept Use Only) Sent. ds4 22:38 Tanner Pearl MD is Hospitalizing Provider. 08/14 03:20 Consent for blood and/or blood product transfusion signed by patient. bb 04:37 No provider procedures requiring assistance completed. Patient admitted, IV remains in bb place. Administered Medications: 08/13 22:26 Drug: NS 0.9% 1000 ml Route: IV; Rate: 125 ml/hr; Site: left antecubital; rr5 08/14 04:40 Follow up: IV Status: IV paused for blood transfusion bb Outcome: 08/13 22:38 Decision to Hospitalize by Provider. 08/14 04:36 Admitted to ICU accompanied by nurse, accompanied by tech, family with patient, via bb stretcher, room 6, with oxygen, on monitor, with chart, Report called to Elsi WILBURN Condition: stable Instructed on the need for admit. 04:41 Patient left the ED. bb Signatures: Dispatcher [employer] EDAlize Tejada, RN RN Lauren Velásquez RN RN Simon Alexander ds4 Eulalia Gandhi RN RN hb Garcia, Rubi rg4 Chris Spencer MD MD Siddhartha Collins RN RN Bryan Sarabia RN RN rr5 Corrections: (The following items were deleted from the chart) 08/13 23:49 19:19 Musculoskeletal: Capillary refill < 3 seconds, rr5 rr5 08/14 01:13 00:30 BP 110 / 59; Pulse 60bpm; Resp 17bpm; Pulse Ox 99%; rr5 rr5
[2018-08-14] MEDS ORDERED: MORPHINE 4 MG/ML SYR IV PRN (00:31)
[2018-08-14] MEDS ORDERED: ONDANSETRON 4 MG/2 ML VIAL IV PRN (00:31)
[2018-08-14] MEDS ORDERED: ACETAMINOPHEN 500 MG TAB PO PRN (00:31)
[2018-08-14] MEDS ORDERED: NA CHLORIDE 0.9% 250 ML IV SCH (01:00)
[2018-08-14] MEDS ORDERED: PANTOPRAZOLE INJ 80 MG in NA CHLORIDE 0.9% 250 ML IV SCH ×2 (01:00→15:00)
[2018-08-14] MEDS ORDERED: NA CHLORIDE 0.9% 100 ML IV ONE (03:35)
[2018-08-14] MEDS: NA CHLORIDE 0.9% 1,000 ML IV SCH ×2 (04:56→17:06)
[2018-08-14] MEDS ORDERED: PANTOPRAZOLE 40 MG INJ ONE (05:00)
[2018-08-14] MEDS ORDERED: NA CHLORIDE 0.9% 100 ML ONE (06:26)
[2018-08-14] MEDS ORDERED: FUROSEMIDE 20 MG/ 2ML VIAL IV ONE (06:26)
[2018-08-14] MEDS ORDERED: OCTREOTIDE 500 MCG in NA CHLORIDE 0.9% 500 ML IV SCH (07:00)
[2018-08-14] MEDS ORDERED: FUROSEMIDE 20 MG/ 2ML VIAL IV SCH (09:00)
--- NOTE | 2018-08-14 09:55 | P.HP ---
Certification for Inpatient Patient admitted to: Inpatient With expected LOS: >2 Midnights Patient will require the following post-hospital care: None Practitioner: I am a practitioner with admitting privileges, knowledge of patient current condition, hospital course, and medical plan of care. Services: Services provided to patient in accordance with Admission requirements found in Title 42 Section 412.3 of the Code of Federal Regulations Patient History Date of Service: 08/14/18 Reason for admission: GI bleeding History of Present Illness: patient is an 88-year-old female who was admitted to the hospital with severe anemia. Patient has had some dark melanotic stools lately. 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 She has had admissions in the past for GI bleeding. She has had cauterization of the AVMs. She came into the emergency room with feeling weak and short of breath. Her workup revealed that she had GI bleed. She also has a reactive thrombocytosis. She has a history of thrombocytosis but whenever she has the GI bleeding her platelet counts go up even more significantly. I believe this is what has happened again. She also has significant uremia. She will be admitted to the hospital for further workup. Allergies codeine [Codeine] Adverse Reaction (Verified 02/01/12 09:06) vomiting Home Medications: Levothyroxine [Synthroid*] 50 mcg PO DAILY 09/06/13 Apixaban [Eliquis *] 2.5 mg PO BID 04/14/18 Digoxin [Lanoxin*] 125 mcg PO SEECOM 04/14/18 Metoprolol Succinate [Toprol Xl*] 25 mg PO BID 04/14/18 Tramadol HCl [Ultram] 50 mg PO BEDTIME 04/14/18 Bosutinib [Bosulif] 3 tab PO BREAKFAST 05/12/18 Gabapentin [Neurontin*] 2 cap PO QID 05/12/18 Cyclosporine [Restasis] 1 each OP BID 05/28/18 Allopurinol [Zyloprim] 100 mg PO DAILY 08/14/18 Dexlansoprazole [Dexilant] 60 mg PO DAILY 08/14/18 Furosemide 20 mg PO DAILY PRN 08/14/18 Montelukast [Singulair] 10 mg PO DAILY 08/14/18 Trimethoprim 100 mg PO DAILY 08/14/18 - Past Medical/Surgical History Has patient received pneumonia vaccine in the past: Yes Diabetic: No -: Congestive Heart Failure, CAD -: GERD -: Edema -: Varicose Veins -: Peripheral Neuropathy -: CML (chronic myeloid leukemia) -: Vitamin D Deficiency -: Hypothyroidism -: Insomnia -: Renal Insufficiency Syndrome -: Anemia -: Angiodysplasia of intestine with hemorrhage -: Hysterectomy -: Back surgery x2 -: Debbie -: bladder sx. -: carotid sx - Family History Mother Medical History: Cancer, Liver disease Father Medical History: Cancer, Liver disease Notes: THROAT CANCER - Social History Smoking Status: Never smoker Alcohol use: No CD- Drugs: No Caffeine use: Yes Place of Residence: Home Review of Systems 10-point ROS is otherwise unremarkable Physical Examination - Vital Signs Temperature: 97.9 F Blood Pressure: 108/47 Pulse: 67 Respirations: 13 Pulse Ox (%): 94 - Physical Exam General: Alert, In no apparent distress, Oriented x3 HEENT: Atraumatic, PERRLA, Mucous membr. moist/pink, EOMI, Sclerae nonicteric Neck: Supple, 2+ carotid pulse no bruit, No LAD, Without JVD or thyroid abnormality Respiratory: Clear to auscultation bilaterally, Normal air movement Cardiovascular: Regular rate/rhythm, Normal S1 S2, No murmurs Gastrointestinal: Normal bowel sounds, Soft and benign, Non-distended, No tenderness Musculoskeletal: No clubbing, No swelling, No tenderness Integumentary: No rashes Neurological: Normal gait, Normal speech, Normal tone, Sensation intact, Cranial nerves 3-12 intact, Normal affect, Abnormal strength Lymphatics: No axilla or inguinal lymphadenopathy - Studies Laboratory Data (last 24 hrs) 08/13/18 19:40: PT 17.1 H, INR 1.44 08/13/18 19:40: WBC 8.9 D, Hgb BOTTLE DEALER, Hct BOTTLE DEALER, Plt Count BOTTLE DEALER 08/13/18 19:40: Sodium 137, Potassium 4.9, BUN 45 H, Creatinine 1.16, Glucose 91 , Magnesium 2.6 H, Total Bilirubin 0.3, AST 16, ALT 13, Alkaline Phosphatase 73 Assessment & Plan - Problems (Diagnosis) (1) Acute kidney injury superimposed on chronic kidney disease Onset Date: 05/29/18 Current Visit: No Status: Acute (2) Acute on chronic anemia Onset Date: 05/29/18 Current Visit: No Status: Acute (3) Gastrointestinal hemorrhage with melena Onset Date: 05/29/18 Current Visit: No Status: Acute (4) CKD (chronic kidney disease) stage 4, GFR 15-29 ml/min Onset Date: 11/01/15 Current Visit: No Status: Chronic (5) Congestive heart failure Onset Date: 11/01/15 Current Visit: No Status: Chronic (6) Hypothyroidism Onset Date: 11/01/15 Current Visit: No Status: Chronic Qualifiers: (7) Myelogenous leukemia, chronic Onset Date: 11/01/15 Current Visit: No Status: Chronic (8) Thrombocytosis Onset Date: 04/14/18 Current Visit: No Status: Chronic - Plan 1. Continue with IV hydration and PPI drip; Sandostatin drip as well to treat bleeding from angiodysplasia/ AVM 2. Continue with IV Lasix after blood transfusion 3. Continue with pain control 4. NPO 5. GI consultation 6. Monitor LFTs and lipase along with electrolytes and serial H&H. 7. will need to monitor volume status closely; recheck renal function in a.m. 8. GI and DVT prophylaxis - Advance Directives Does patient have a Living Will: Yes Does patient have a Durable POA for Healthcare: No - Code Status/Comfort Care Code Status Assessed: Yes Code Status: Full Code Critical Care: No Time Spent Managing PTS Care (In Minutes): 50
[2018-08-14] MEDS ORDERED: DIGOXIN 0.125 MG TABLET PO ONE (11:00)
[2018-08-14] MEDS: GABAPENTIN 400 MG CAP PO SCH ×3 (12:04→20:41)
[2018-08-14 13:04] LABS: Bilirubin Direct 0.1 mg/dL (0-0.2)
--- NOTE | 2018-08-14 14:02 | EKG ---
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
[2018-08-14] MEDS ORDERED: PROPOFOL 200 MG/20 ML VIAL IV ONE (15:28)
[2018-08-14] MEDS ORDERED: LIDOCAINE 1% MPF 5 ML VIAL ONE ×2 (15:28→15:59)
[2018-08-14 16:09] LABS: RBC Red Blood Cell Count 2.74 M/uL (3.86-4.86)
[2018-08-14 16:33] LABS: Arterial Blood Carboxyhemoglob 2.1 % (0-1.5); Blood Gas Oxyhemoglobin 66.2 % (94-97); Blood O2 Saturation 68.1 % (92-98.5)
[2018-08-14 17:06] LABS: Absolute Lymphocytes (CBC) 2.4 K/uL (0.7-4.9); Absolute Monocytes 0.8 K/uL (0.1-1.3); Absolute Neutrophil 3.3 K/uL (1.8-8.0); Eosinophils % 5.6 % (0-4.4); Hematocrit 25.1 % (36.0-45.0); Lymphocytes % 34.3 % (15.3-44.8); MPV 9.2 fL (7.6-11.3); Monocytes % 10.9 % (3.3-12.3); RBC Red Blood Cell Count 2.69 M/uL (3.86-4.86)
[2018-08-14] MEDS: PANTOPRAZOLE 40MG TABLET PO SCH (17:06)
[2018-08-14 17:07] LABS: Hematocrit 25.2 % (36.0-45.0)
[2018-08-14 20:17] LABS: Hematocrit 24.9 % (36.0-45.0)
[2018-08-14] MEDS: TRAMADOL HCL 50 MG TAB PO SCH (20:40)
[2018-08-14] MEDS: METOPROLOL XL 25 MG TAB PO SCH (20:41)
--- NOTE | 2018-08-15 03:02 | OP ---
Surgeon: Ronald Vizcarra MD Procedure To Be Performed: Esophagogastroduodenoscopy. Indications For Procedure: Severe symptomatic anemia, rule out upper GI source of bleeding. Plan For Anesthesia: Monitored anesthesia care. Complexity: High due to patient's severe comorbidities. Technique: After obtaining informed consent from the patient and explaining risks and complications which include but are not limited to bleeding, infection, perforation, and anesthesia complication, t he patient was placed in left lateral position and sedation was given. From then on, the scope was a dvanced into the mouth and carefully guided up till the 3rd portion of the duodenum. There was no ev idence of active or recent bleeding that was seen. After the completion of examination, the scope wa s withdrawn and procedure terminated in a safe manner. Findings: Esophagus: No gross lesion seen in the entire esophagus. Stomach: Mild striped erythema seen in the antrum. There was evidence of scarring from prior treatment of AVMs. No AVM or any angel rce of bleeding was visualized. Duodenum: The bulb, second and third portion appeared normal. Biop sies were not taken on this examination due to the patient being on blood thinners. Complications: None. Tolerance Of Anesthesia: Excellent. Postoperative Diagnosis: Gastritis. Plan: We will switch from IV to oral PPI b.i.d. Avoid NSAIDs. Transfer back to the floor. I magnus espinoza discussed the case with Dr. Urbina and Dr. Jolley. Her medications for leukemia will be stoppe d and switched over as that likely appears to be the cause. However, Oncology does recommend a colon oscopy to rule out any lower GI source of bleeding. Additionally, she has had a history of colonic n eoplasm. Last colonoscopy was in 2012. I had a detailed discussion with the patient and her datylere r. They both are actually wanted to go ahead and do the colonoscopy so they can rule out a GI source of bleeding once and for all. They understand the risks which will be higher given her comorbiditie s. We will go ahead and prep her for colonoscopy for Friday. US/MODL Voice ID: [id number] Report ID: [id number]
[2018-08-15] MEDS: NA CHLORIDE 0.9% 1,000 ML IV SCH (06:08)
[2018-08-15] MEDS: LEVOTHYROXINE SOD 0.05 MG TABLET PO SCH (06:08)
[2018-08-15 06:24] LABS: Absolute Lymphocytes (CBC) 2.9 K/uL (0.7-4.9); Absolute Monocytes 1.1 K/uL (0.1-1.3); Absolute Neutrophil 3.9 K/uL (1.8-8.0); Basophils % 1.2 % (0-1.3); Lymphocytes % 33.9 % (15.3-44.8); MPV 9.3 fL (7.6-11.3); Monocytes % 13.5 % (3.3-12.3); RBC Red Blood Cell Count 2.63 M/uL (3.86-4.86)
[2018-08-15 06:26] LABS: Protime INR 1.2
[2018-08-15 06:55] LABS: Blood Morphology Comment NOT SEEN (NOT SEEN); Platelet Estimate INCR; Platelets, Giant PRESENT; Urine White Blood Cell Casts OK
[2018-08-15 07:35] LABS: Potassium 5.5 mmol/L (3.5-5.1)
[2018-08-15] MEDS ORDERED: NA CHLORIDE 0.9% 250 ML IV SCH (08:00)
[2018-08-15] MEDS: PANTOPRAZOLE 40MG TABLET PO SCH ×2 (08:21→16:34)
[2018-08-15] MEDS: GABAPENTIN 400 MG CAP PO SCH ×5 (08:21→23:54)
[2018-08-15] MEDS: METOPROLOL XL 25 MG TAB PO SCH ×2 (08:22→20:26)
--- NOTE | 2018-08-15 11:19 | P.PN ---
Subjective Date of Service: 08/15/18 Primary Care Provider: Dr. Richmond; Oncology-Dr. Jolley Chief Complaint: GI bleeding Subjective: Improving Physical Examination - Vital Signs Temperature: 97.3 F Blood Pressure: 140/66 Pulse: 63 Respirations: 24 Pulse Ox (%): 100 - Physical Exam General: Alert, In no apparent distress, Oriented x3, Cooperative HEENT: Atraumatic Neck: Supple Respiratory: Clear to auscultation bilaterally, Normal air movement Cardiovascular: Normal pulses, Regular rate/rhythm Gastrointestinal: Normal bowel sounds, Soft and benign, Non-distended Musculoskeletal: No erythema, No tenderness, No warmth Integumentary: No tenderness/swelling, No erythema, No warmth, No cyanosis Neurological: Normal speech, Normal strength at 5/5 x4 extr, Normal tone, Normal affect Assessment & Plan Discharge Plan: Home Plan to discharge in: 48 Hours Physician Review Additional Text: Impression: Acute on chronic anemia with history of myelogenous leukemia and thrombocytosis complicated with GI bleed with melena status post EGD showing gastritis GERD Acute on chronic renal disease, stage 3 Atrial fibrillation on chronic anti coagulation therapy Hypothyroidism Hypertension Chronic pain Plan: Acute on chronic anemia with history of myelogenous leukemia and thrombocytosis complicated with GI bleed with melena status post EGD showing gastritis: The patient feels better. Patient will receive another unit of blood. Will recheck hemoglobin thereafter. Will try to maintain hemoglobin above 8.0. Will also provide Lasix after transfusion. EGD done yesterday showed gastritis. Will discuss with GI. Case discussed with hematology. Hematology suspects anemia related to recent chemotherapy. This will be discontinued. Hematology also suspects possible have myolysis. Hematology recommends to start prednisone 30 mg daily. Will start medication. Will continue to monitor hemoglobin closely. Colonoscopy has been ordered for Friday. Patient prefers to have colonoscopy as an outpatient. Will discuss with GI. If stable and colonoscopy to be done as an outpatient then possible discharge as early as tomorrow if hemoglobin stable. Will continue to hold Eliquis. GERD: Will continue with Protonix twice daily. Acute on chronic renal disease, stage 3: Will continue with IV fluids. Will change normal saline to half-normal saline due to elevated sodium. Atrial fibrillation on chronic anti coagulation therapy: Continue to hold Eliquis due to anemia. Will continue with rate control medication. Hypothyroidism: Continue with medication. Hypertension: Continue with medication. Will monitor and address appropriately. Chronic pain: Will provide medication. Time Spent Managing Pts Care (In Minutes): 55
[2018-08-15] MEDS: NACHLORIDE 0.45% 1,000 ML IV SCH (12:35)
[2018-08-15] MEDS ORDERED: FUROSEMIDE 20 MG/ 2ML VIAL IV ONE (14:58)
[2018-08-15] MEDS: ENOXAPARIN 40 MG/0.4 ML SQ SCH (16:33)
[2018-08-15 16:54] LABS: Hematocrit 32.3 % (36.0-45.0)
[2018-08-15] MEDS ORDERED: BISACODYL E.C. 5 MG TAB PO ONE (18:00)
[2018-08-15] MEDS: TRAMADOL HCL 50 MG TAB PO SCH (20:26)
[2018-08-16 01:04] LABS: Hematocrit 29.3 % (36.0-45.0)
[2018-08-16] MEDS: GABAPENTIN 400 MG CAP PO SCH ×4 (03:40→20:43)
[2018-08-16 05:22] VITALS: BMI 21.2
[2018-08-16 05:43] LABS: Absolute Lymphocytes (CBC) 2.2 K/uL (0.7-4.9); Absolute Monocytes 0.8 K/uL (0.1-1.3); Basophils % 2.1 % (0-1.3); Eosinophils % 4.1 % (0-4.4); Lymphocytes % 22.6 % (15.3-44.8); MPV 8.9 fL (7.6-11.3); Monocytes % 8.3 % (3.3-12.3); RBC Red Blood Cell Count 2.98 M/uL (3.86-4.86)
[2018-08-16 06:01] LABS: Magnesium 2.2 mg/dL (1.8-2.4); Potassium 4.6 mmol/L (3.5-5.1)
[2018-08-16] MEDS: LEVOTHYROXINE SOD 0.05 MG TABLET PO SCH (06:16)
[2018-08-16] MEDS: predniSONE 10 MG TAB PO SCH (07:53)
[2018-08-16] MEDS: PANTOPRAZOLE 40MG TABLET PO SCH ×2 (07:53→16:34)
[2018-08-16] MEDS: METOPROLOL XL 25 MG TAB PO SCH ×2 (07:54→20:43)
[2018-08-16] MEDS: NACHLORIDE 0.45% 1,000 ML IV SCH ×2 (07:55→20:47)
[2018-08-16] MEDS ORDERED: DIGOXIN 0.125 MG TABLET PO SCH (09:00)
[2018-08-16] MEDS ORDERED: ALPRAZOLAM 0.25 MG TABLET PO PRN (10:09)
--- NOTE | 2018-08-16 10:29 | P.PN ---
Subjective Date of Service: 08/16/18 Primary Care Provider: Dr. Richmond; Oncology-Dr. Jolley Chief Complaint: GI bleeding Subjective: Other (Patient doing well. Some anxiety noted.) Physical Examination - Vital Signs Temperature: 98.9 F Blood Pressure: 130/57 Pulse: 61 Respirations: 17 Pulse Ox (%): 100 - Physical Exam General: Alert, In no apparent distress, Oriented x3, Cooperative, Other (Mild anxiety) HEENT: Atraumatic Neck: Supple Respiratory: Clear to auscultation bilaterally, Normal air movement Cardiovascular: Normal pulses, Regular rate/rhythm Gastrointestinal: Normal bowel sounds, Soft and benign, Non-distended, No tenderness, No masses, No rebound, No guarding Musculoskeletal: No tenderness, No warmth Integumentary: No erythema, No warmth, No cyanosis Neurological: Normal speech, Normal strength at 5/5 x4 extr, Normal tone, Normal affect - Studies Medications List Reviewed: Yes Assessment & Plan Discharge Plan: Home Plan to discharge in: 24 Hours Physician Review Additional Text: Impression: Acute on chronic anemia with history of myelogenous leukemia and thrombocytosis complicated with GI bleed with melena status post EGD showing gastritis GERD Acute on chronic renal disease, stage II Atrial fibrillation on chronic anti coagulation therapy Hypothyroidism Hypertension Chronic pain Anxiety Plan: Acute on chronic anemia with history of myelogenous leukemia and thrombocytosis complicated with GI bleed with melena status post EGD showing gastritis: Patient improved. Patient given a total of 3 units of blood. Hemoglobin stable this time. Will continue monitor hemoglobin. EGD done recently showed gastritis. Patient to have colonoscopy tomorrow. Patient will be given Mag citrate for her prepped. Case discussed at length with GI. Likely discharge after colonoscopy tomorrow. Case also discussed with hematology. Patient started on prednisone 30 mg daily. Will hold Eliquis at this time in preparation for colonoscopy. Patient on Lovenox during this time. Anticipate discharge tomorrow after colonoscopy. Patient may continue with her Eliquis medication. Chemotherapy medication adjusted per Oncology. As for patient to the floor. GERD: Will continue with Protonix twice daily. Acute on chronic renal disease, stage II: Improved. Will monitor closely. Will continue with IV fluids. Atrial fibrillation on chronic anti coagulation therapy: Continue to hold Eliquis due to anemia. Patient on Lovenox during this time. Will continue with rate control medication. Hypothyroidism: Continue with medication. Hypertension: Continue with medication. Will monitor and address appropriately. Chronic pain: Neurontin adjusted per pharmacy recommendation. Anxiety: Will start Xanax as needed. Time Spent Managing Pts Care (In Minutes): 55
[2018-08-16] MEDS ORDERED: GOLYTELY 4000 ML PO SCH (16:00)
[2018-08-16] MEDS: ENOXAPARIN 40 MG/0.4 ML SQ SCH (16:34)
[2018-08-16] MEDS ORDERED: MAGNESIUM CITRATE 300 ML BOT PO SCH (17:00)
[2018-08-16] MEDS: TRAMADOL HCL 50 MG TAB PO SCH (20:43)
[2018-08-17] MEDS: METOPROLOL TARTRATE 5 MG/5 ML INJ IV SCH ×3 (02:10→02:23)
[2018-08-17] MEDS ORDERED: MAGNESIUM CITRATE 300 ML BOT PO SCH (04:00)
[2018-08-17 05:02] LABS: Absolute Lymphocytes (CBC) 2.3 K/uL (0.7-4.9); Absolute Neutrophil 5.7 K/uL (1.8-8.0); Basophils % 1.8 % (0-1.3); Eosinophils % 2.3 % (0-4.4); Lymphocytes % 24.3 % (15.3-44.8); MPV 8.7 fL (7.6-11.3); Monocytes % 10.2 % (3.3-12.3); RBC Red Blood Cell Count 3.29 M/uL (3.86-4.86)
[2018-08-17] MEDS: LEVOTHYROXINE SOD 0.05 MG TABLET PO SCH (05:09)
[2018-08-17 05:15] LABS: Magnesium 2.7 mg/dL (1.8-2.4); Potassium 4.9 mmol/L (3.5-5.1)
--- NOTE | 2018-08-17 07:47 | P.PN ---
Subjective Date of Service: 08/17/18 Atrial fibrillation with rapid ventricular response. This happened after patient had a large diarrhea as she is getting a prep for colonoscopy. She appears very upset that she is having this procedure done. Explain her the need to find source of bleeding that she may need anti coagulation. Review of Systems 10-point ROS is otherwise unremarkable Physical Examination - Vital Signs Temperature: 97 F Blood Pressure: 144/65 Pulse: 66 Respirations: 18 Pulse Ox (%): 95 - Physical Exam General: Alert, In no apparent distress, Oriented x3 Respiratory: Clear to auscultation bilaterally, Normal air movement Cardiovascular: Irregular heart rate/rhythm, Systolic murmur Gastrointestinal: Normal bowel sounds, Soft and benign, Non-distended, No tenderness Musculoskeletal: No clubbing, No tenderness Integumentary: No rashes Neurological: Normal speech, Normal tone, Sensation intact, Cranial nerves 3-12 intact, Normal affect, Abnormal strength Lymphatics: No axilla or inguinal lymphadenopathy - Studies Medications List Reviewed: Yes Assessment & Plan - Problems (Diagnosis) (1) Atrial fibrillation with rapid ventricular response Current Visit: Yes Status: Acute (2) Acute kidney injury superimposed on chronic kidney disease Onset Date: 05/29/18 Current Visit: No Status: Acute (3) Acute on chronic anemia Onset Date: 05/29/18 Current Visit: No Status: Acute (4) Gastrointestinal hemorrhage with melena Onset Date: 05/29/18 Current Visit: No Status: Acute (5) CKD (chronic kidney disease) stage 4, GFR 15-29 ml/min Onset Date: 11/01/15 Current Visit: No Status: Chronic (6) Congestive heart failure Onset Date: 11/01/15 Current Visit: No Status: Chronic (7) Hypothyroidism Onset Date: 11/01/15 Current Visit: No Status: Chronic Qualifiers: (8) Myelogenous leukemia, chronic Onset Date: 11/01/15 Current Visit: No Status: Chronic (9) Thrombocytosis Onset Date: 04/14/18 Current Visit: No Status: Chronic - Plan 1. Continue with the IV Lopressor 2. Cardiology consultation 3. Hold anti coagulation 4. Proceed with colonoscopy as rate is once again paced after getting IV Lopressor 5. Monitor labs closely 6. Echocardiogram 7. GI and DVT prophylax - Advance Directives Does patient have a Living Will: No Does patient have a Durable POA for Healthcare: No - Code Status/Comfort Care Code Status: Full Code Critical Care: No Time Spent Managing PTS Care (In Minutes): 30
[2018-08-17] MEDS: METOPROLOL XL 25 MG TAB PO SCH (08:38)
[2018-08-17] MEDS: NACHLORIDE 0.45% 1,000 ML IV SCH ×2 (08:45→10:10)
[2018-08-17] MEDS ORDERED: PROPOFOL 200 MG/20 ML VIAL IV ONE ×2 (10:02→10:03)
[2018-08-17] MEDS ORDERED: LIDOCAINE 1% MPF 5 ML VIAL ONE (10:03)
--- NOTE | 2018-08-17 10:10 | P.PN ---
Subjective Date of Service: 08/17/18 Primary Care Provider: Dr. Richmond; Oncology-Dr. Jolley Chief Complaint: GI bleeding Subjective: Other (Patient had prepped for colonoscopy last night. Patient with episode of AFib with RVR. Patient received IV Lopressor.) Physical Examination - Vital Signs Temperature: 97.0 F Blood Pressure: 143/55 Pulse: 64 Respirations: 18 Pulse Ox (%): 100 - Physical Exam General: Alert HEENT: Atraumatic Neck: Supple Respiratory: Clear to auscultation bilaterally, Normal air movement Cardiovascular: Normal pulses, Regular rate/rhythm Gastrointestinal: No rebound, No guarding - Studies Medications List Reviewed: Yes Assessment & Plan Discharge Plan: Home Plan to discharge in: 24 Hours Physician Review Additional Text: Impression: Acute on chronic anemia with history of myelogenous leukemia and thrombocytosis complicated with GI bleed with melena status post EGD showing gastritis GERD Acute on chronic renal disease, stage II Atrial fibrillation on chronic anti coagulation therapy Hypothyroidism Hypertension Chronic pain Anxiety Plan: Acute on chronic anemia with history of myelogenous leukemia and thrombocytosis complicated with GI bleed with melena status post EGD showing gastritis: Patient had prep for colonoscopy for this morning. Patient has received a total 3 units of blood during his hospitalization. Patient overall stable. Await findings from colonoscopy. Possible discharge after colonoscopy. Will discuss with GI. Patient will need to resume her Eliquis after procedure. Will reassess for possible discharge later today. GERD: Will continue with Protonix twice daily. Acute on chronic renal disease, stage II: Improved. Will monitor closely. Will continue with IV fluids. Atrial fibrillation on chronic anti coagulation therapy: Patient received IV Lopressor last night. Patient now improved. Patient on Lovenox in preparation for colonoscopy. Will transition to Eliquis after colonoscopy. Hypothyroidism: Continue with medication. Hypertension: Continue with medication. Will monitor and address appropriately. Chronic pain: Neurontin adjusted per pharmacy recommendation. Anxiety: Will continue with Xanax as needed. Time Spent Managing Pts Care (In Minutes): 55
[2018-08-17] MEDS ORDERED: Ringers Lactate 1,000 ML IV ONE (10:13)
[2018-08-17 10:52] VITALS: O2SAT 97
[2018-08-17] MEDS: predniSONE 10 MG TAB PO SCH (11:15)
[2018-08-17] MEDS: PANTOPRAZOLE 40MG TABLET PO SCH ×2 (11:16→16:30)
[2018-08-17] MEDS: GABAPENTIN 400 MG CAP PO SCH ×3 (11:16→17:32)
[2018-08-17] MEDS ORDERED: TRAMADOL HCL 50 MG TAB PO PRN (11:20)
--- NOTE | 2018-08-17 12:12 | P.DS ---
Admission Date: 08/14/18 Discharge Date: 08/17/18 Primary Care Provider: Dr. Richmond; Oncology-Dr. Jolley Disposition: ROUTINE DISCHARGE Discharge Condition: GOOD Reason for Admission: GI bleeding Consultations: Oncology-Dr. Jolley GI-Dr. Vizcarra Cardiology-Dr. Santiago Procedures: EGD: Gastritis noted. No active bleeding noted. Colonoscopy: No active bleeding or masses noted. 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 Patient found to be anemic. Patient with history of GI bleed and CML. Patient on recent chemotherapy. Patient admitted for treatment and further evaluation. Hospital Course: Patient presented with acute on chronic anemia with history of CML and GI bleed. Patient had reported some melena. Patient seen and evaluated by oncology and GI. Patient recently on new chemotherapy medication. Patient was given 3 units of blood during her hospitalization. Patient had a EGD and colonoscopy showing no active bleeding. Text bleeding related to chemotherapy. Oncology agrees. Current chemotherapy will be discontinued. At discharge she will follow up with oncology to further monitor. Other chemotherapy medication may be required for her condition. Patient has been started on prednisone 30 mg daily as per Oncology for her CML. This can be followed up by her oncology as an outpatient later this week. Recommend to recheck CBC in 1 week to monitor her progress. Patient with atrial fibrillation on chronic anti coagulation therapy. Cardiology was consulted. After discussion with cardiology, GI and oncology, patient may be restarted on her Eliquis. Patient will continue with Eliquis 2.5 mg 1 pill twice daily, metoprolol 25 mg 1 pill twice daily and digoxin 125 mcg every 48 hr. Patient with GERD. EGD showed gastritis. At discharge she will continue with Protonix 40 mg 1 pill twice daily. Patient has hypothyroidism. She will continue with her medication Levoxyl 50 mcg daily. Patient with hypertension. This remained stable. Patient will continue with metoprolol 25 mg 1 pill twice daily. Patient has chronic pain. Patient will continue with her Neurontin and tramadol. Further adjustment can be done by her PCP. Patient with chronic CHF. Patient will continue with Lasix 20 mg daily. Vital Signs/Physical Exam: Temp Pulse Resp BP Pulse Ox 97.7 F 79 16 115/60 100 08/17/18 10:50 08/17/18 10:50 08/17/18 10:50 08/17/18 10:50 08/17/18 10:10 General: Alert, In no apparent distress, Oriented x3, Cooperative HEENT: Atraumatic Neck: Supple Respiratory: Clear to auscultation bilaterally, Normal air movement Cardiovascular: Normal pulses, Regular rate/rhythm Gastrointestinal: Normal bowel sounds, Soft and benign, Non-distended Laboratory Data at Discharge: WBC 9.3 K/uL (4.3-10.9) 08/17/18 04:45 Hgb 10.1 g/dL (12.0-15.0) L 08/17/18 04:45 Hct 31.0 % (36.0-45.0) L 08/17/18 04:45 Plt Count 2083 K/uL (152-406) H* D 08/17/18 04:45 PT 14.2 SECONDS (9.5-12.5) H 08/15/18 05:24 INR 1.20 08/15/18 05:24 APTT 35.4 SECONDS (24.3-36.9) 08/15/18 05:24 Sodium 143 mmol/L (136-145) 08/17/18 04:45 Potassium 4.9 mmol/L (3.5-5.1) 08/17/18 04:45 BUN 19 mg/dL (7-18) H 08/17/18 04:45 Creatinine 0.66 mg/dL (0.55-1.3) 08/17/18 04:45 Glucose 93 mg/dL (74-106) 08/17/18 04:45 Magnesium 2.7 mg/dL (1.8-2.4) H D 08/17/18 04:45 Total Bilirubin 0.3 mg/dL (0.2-1.0) 08/13/18 19:40 AST 16 U/L (15-37) 08/13/18 19:40 ALT 13 U/L (12-78) 08/13/18 19:40 Alkaline Phosphatase 73 U/L (45-117) 08/13/18 19:40 Home Medications: Levothyroxine [Synthroid*] 50 mcg PO DAILY 09/06/13 Apixaban [Eliquis *] 2.5 mg PO BID 04/14/18 Digoxin [Lanoxin*] 125 mcg PO SEECOM 04/14/18 Metoprolol Succinate [Toprol Xl*] 25 mg PO BID 04/14/18 Tramadol HCl [Ultram] 50 mg PO BEDTIME 04/14/18 Gabapentin [Neurontin*] 2 cap PO QID 05/12/18 Cyclosporine [Restasis] 1 each OP BID 05/28/18 Allopurinol [Zyloprim*] 100 mg PO DAILY 08/14/18 Furosemide 20 mg PO DAILY PRN 08/14/18 Montelukast [Singulair*] 10 mg PO DAILY 08/14/18 Pantoprazole [Protonix Tab*] 40 mg PO BIDAC #60 tab 08/17/18 predniSONE [Deltasone*] 30 mg PO DAILY #30 tab 08/17/18 New Medications: Pantoprazole [Protonix Tab*] 40 mg PO BIDAC #60 tab predniSONE [Deltasone*] 30 mg PO DAILY #30 tab Patient Discharge Instructions: 1. Patient will follow up with her PCP and Oncology in 1 week to follow up this hospitalization. 2. Patient presented with acute on chronic anemia with history of CML and GI bleed. Patient had reported some melena. Patient seen and evaluated by oncology and GI. Patient recently on new chemotherapy medication. Patient was given 3 units of blood during her hospitalization. Patient had a EGD and colonoscopy showing no active bleeding. Text bleeding related to chemotherapy. Oncology agrees. Current chemotherapy will be discontinued. At discharge she will follow up with oncology to further monitor. Other chemotherapy medication may be required for her condition. Patient has been started on prednisone 30 mg daily as per Oncology for her CML. This can be followed up by her oncology as an outpatient later this week. Recommend to recheck CBC in 1 week to monitor her progress. 3. Patient with atrial fibrillation on chronic anti coagulation therapy. Cardiology was consulted. After discussion with cardiology, GI and oncology, patient may be restarted on her Eliquis. Patient will continue with Eliquis 2.5 mg 1 pill twice daily, metoprolol 25 mg 1 pill twice daily and digoxin 125 mcg every 48 hr. 4. Patient with GERD. EGD showed gastritis. At discharge she will continue with Protonix 40 mg 1 pill twice daily. 5. Patient has hypothyroidism. She will continue with her medication Levoxyl 50 mcg daily. 6. Patient with hypertension. This remained stable. Patient will continue with metoprolol 25 mg 1 pill twice daily. 7. Patient has chronic pain. Patient will continue with her Neurontin and tramadol. Further adjustment can be done by her PCP. 8. Patient with chronic CHF. Patient will continue with Lasix 20 mg daily. Diet: AHA Activity: Fall precautions Time spent managing pt's care (in minutes): 55
[2018-08-17 16:36] VITALS: BP 131/53; TEMP 97.2
--- NOTE | 2018-08-17 21:14 | OP ---
Surgeon: Ronald Vizcarra MD Procedure To Be Performed: Colonoscopy. Indications For Procedure: Severe anemia, rule out GI source of bleeding, history of colonic neoplas m. Plan For Anesthesia: Monitored anesthesia care. Complexity: High due to patient's significant comorbidities. Technique: The patient was prepped with double dose of magnesium citrate and Dulcolax as well as ext ended period of clear liquid diet. She did not want to drink GoLYTELY. Therefore, we had to use thi s method of preparation. The patient has reportedly had multiple bowel movements which have been elida k to light brown in color. She states that she is not going to have another colonoscopy regardless t he findings. After obtaining informed consent from the patient and explaining risks and complication s which include but are not limited to bleeding, infection, perforation, and anesthesia complication, the patient was placed in the left lateral position and sedation was given. From then on, a digital rectal exam was performed and scope was inserted into the rectum and carefully guided up till the ce cum. The cecum was identified by the appendiceal orifice and ileocecal valve. Quality of prep was e xtremely poor; according to [place] prep score 0/9. Subsequently, the scope was withdrawn slowly. Af ter completion of the procedure, the procedure was terminated in a safe manner. Findings: In the sigmoid, a few small diverticula were seen. Small internal hemorrhoids were seen o n retroflexion. As far as the whole colon is concerned, there was no evidence of any gross obstructi ng or even partially obstructing mass lesion. This is all I can comment on due to the prep. Other s maller lesions or even large lesions can be missed due to the poor quality of preparation. There was no evidence of any active bleeding; only brown semi-liquid to solid stool was found. Complications: None. Tolerance To Anesthesia: Excellent. Postoperative Diagnoses: Diverticulosis. Poor prep. Plan: I discussed with the daughter and she confirmed that patient will not have another colonoscopy . There also does not seem to be any evidence of any GI bleeding, therefore no further management ne eded from GI. The patient can be started on anticoagulation if needed. Regular diet to be initiated . I will communicate this to the primary care team as well as Hematology. US/MODL Voice ID: [id number] Report ID: [id number]
--- NOTE | 2018-08-18 06:33 | CON ---
Date of Consultation: 08/17/2018 Reason For Consultation: Atrial fibrillation and GI bleed and anticoagulation therapy. History Of Present Illness: The patient is an 88-year-old woman with history of atrial fibrillation, came in with GI bleed. Her hemoglobin initially was 7.8, it is now 10.1. She has a history of atri al fibrillation, for which she takes Eliquis, digoxin, and Toprol. She has a history of pacemaker. She has a history of chronic lymphocytic leukemia, colon cancer, hypertension, carotid endarterectomy , diastolic congestive heart failure, gastroesophageal reflux disease, and pulmonary hypertension as well as COPD and hypothyroidism. The question is what to do with her Eliquis regarding her GI bleed. She also had some shortness of breath and chest x-ray showed mild congestive heart failure. Denied any chest pain or syncope. Symptoms have been going on for approximately a week. Allergies: SHE IS ALLERGIC TO CODEINE. Review of Systems: Negative. Social History: Negative. Family History: Negative. Medications: Include Eliquis, Protonix, allopurinol, digoxin, Lasix, Neurontin, Synthroid, Ultram, S ingulair, and Toprol. She was also taking bosutinib. Physical Examination: General: She was in no acute distress, pleasant, paced rhythm, afebrile. Vital Signs: Stable. HEENT: Negative. Neck: Supple without any bruit, lymphadenopathy, JVD, or thyromegaly. Chest: Reveals some rales both bases. Cardiac: Revealed paced rhythm. No murmurs, gallops, or rubs. Abdomen: Benign. Extremities: Revealed no clubbing, cyanosis, or edema. Neurologic: She was nonfocal. Skin: Dry and intact. Diagnostic Data: She had an echocardiogram in May of 2018 showing moderate pulmonary hypertensi on and normal ejection fraction. Chest x-ray showed mild CHF. EKG showed paced rhythm. Initial hem oglobin was 7.1, last one was 10.1. Her INR was 1.20. Platelet count was 283,000. INR is 1.20. Impression And Plan: 1.Gastrointestinal bleed in a patient on Eliquis with history of atrial fibrillation. Her INR is on ly 1.2. Endoscopy showed gastritis. Colonoscopy is pending today. I will await the colonoscopy res ults. There is no active bleeding. I still think we need to continue her Eliquis. 2.Moderate pulmonary hypertension, stable. 3.Mild congestive heart failure, improved on Lasix. She is on Lasix at home. We could certainly in crease that. 4.Chronic diastolic congestive heart failure with mild acute exacerbation. 5.Status post pacemaker, stable. 6.Chronic lymphocytic leukemia with elevated platelet count and white count. Her other issues inclu de colon cancer that has resolved, hypertension that is stable. She also has cerebrovascular disease , status post carotid endarterectomy. I did not detect any bruit on listening to her. Her last prob lems include hypothyroidism, chronic obstructive pulmonary disease, both of those are stable at this point. I do not recommend any further cardiac workup. We will see what the colonoscopy shows prior to making final decisions. ROSE/ZEKE Voice ID: [id number] Report ID: [id number]
--- NOTE | 2018-08-18 13:26 | EKG ---
Test Date: 2018-08-17 Test Time: 01:57:25 Roof Painter: RT-O MEASUREMENT RESULTS: Intervals: Rate: 113 RI: QRSD: 112 QT: 304 QTc: 416 [place]: P: RI: QRS: -41 T: 140 INTERPRETIVE STATEMENTS: Atrial fibrillation with rapid ventricular response with premature ventricular or aberrantly conducted complexes Left axis deviation Moderate voltage criteria for LVH, may be normal variant ST & T wave abnormality, consider lateral ischemia or digitalis effect Abnormal ECG Compared to ECG 08/15/2018 01:27:40 Ventricular premature complex(es) now present Left-axis deviation now present Left ventricular hypertrophy now present ST (T wave) deviation now present Possible ischemia now present AV dual-paced complex(es) or rhythm no longer present Electronically Signed On 08-18-18 13:24:12 ONLINE MERCHANDISING MANAGER by Freddie Santiago
--- NOTE | 2018-08-18 13:26 | EKG ---
Test Date: 2018-08-15 Test Time: 01:27:40 Computer Technology Trainer: RT-O MEASUREMENT RESULTS: Intervals: Rate: 61 NC: QRSD: 130 QT: 436 QTc: 438 [place]: P: NC: QRS: -63 T: 27 INTERPRETIVE STATEMENTS: AV sequential or dual chamber electronic pacemaker Compared to ECG 08/13/2018 20:05:51 Ventricular-paced complex(es) or rhythm no longer present Electronically Signed On 08-18-18 13:24:15 BOILER OPERATOR HELPER by Freddie Santiago
== END 2018-08-17 17:50 | disposition home health service (06) | DRG 811 ==
LOC: ER 16:30 → ERHOLD 08-14 00:42 → 4TH 08-14 04:12 → 3RD-ICU 08-14 04:14 → 4TH 08-16 12:55
PROVIDERS: ADMIT Hospitalist; ATTEND Family Medicine
PROC: 0DJ08ZZ Inspection of Upper Intestinal Tract, Via Natural or Artificial Opening Endoscopic (ICD-10-PCS; 2018-08-14)
PROC: 30233N1 Transfusion of Nonautologous Red Blood Cells into Peripheral Vein, Percutaneous Approach (ICD-10-PCS; principal; 2018-08-14 13:30)
PROC: 0DJD8ZZ Inspection of Lower Intestinal Tract, Via Natural or Artificial Opening Endoscopic (ICD-10-PCS; 2018-08-17)
DX: D64.81 Anemia due to antineoplastic chemotherapy (principal); I50.33 Acute on chronic diastolic (congestive) heart failure; C92.10 Chronic myeloid leukemia, BCR/ABL-positive, not having achieved remission; N17.9 Acute kidney failure, unspecified; I13.0 Hypertensive heart and chronic kidney disease with heart failure and stage 1 through stage 4 chronic kidney disease, or unspecified chronic kidney disease; N18.4 Chronic kidney disease, stage 4 (severe); C91.10 Chronic lymphocytic leukemia of B-cell type not having achieved remission; Q27.33 Arteriovenous malformation of digestive system vessel; D63.8 Anemia in other chronic diseases classified elsewhere; E03.9 Hypothyroidism, unspecified; D47.3 Essential (hemorrhagic) thrombocythemia; K29.70 Gastritis, unspecified, without bleeding; K21.9 Gastro-esophageal reflux disease without esophagitis; I48.91 Unspecified atrial fibrillation; Z79.01 Long term (current) use of anticoagulants; G89.29 Other chronic pain; F41.9 Anxiety disorder, unspecified; K57.30 Diverticulosis of large intestine without perforation or abscess without bleeding; K64.8 Other hemorrhoids; Z95.0 Presence of cardiac pacemaker; Z85.038 Personal history of other malignant neoplasm of large intestine; I27.20 Pulmonary hypertension, unspecified; J44.9 Chronic obstructive pulmonary disease, unspecified; Z88.5 Allergy status to narcotic agent
CPT/HCPCS: 36415; 71045; 80048; 80053; 80076; 81003; 82248; 82728; 82805; 82962; 83540; 83615; 83735; 83880; 84132; 84466; 84484; 84550; 85014; 85018; 85025; 85044; 85610; 85730; 86850; 86880; 86900; 86901; 93005; C9113; J1650; J1940; J2354; J2704; J7030; J7512; P9040

== ENCOUNTER 2018-08-24 16:27 | Inpatient (IN) | payer OTHER ==
--- OUTSIDE RECORDS SUMMARY | 2018-08-24 16:29 | XMS REPORT | Clinical Summary ---
:1930 Author Organization [facility] Address [address] [place] [address] Care Team Providers Name Role Phone Hernan [...] INFLUENZA VACCINE 04/27/2018 Implants Implanted Type Area Red Cap Device Shelf Model / Identifier Expiration Serial / Lot Date Lead Attain Performa [id number] - [id number] Cardiovascular N/A: [employer] :CARD 10/03/2018 [id number] / Implanted: Qty: 1 on 01/07/2017 by Satya Perales MD Chest RHY: DISEASE [id number] / MGT Ld Endocardial Df4 Act 55 [id number] - [id number] Defibrillators N/A: [employer]:CARD 10/10/2018 [id number] / Implanted: Qty: 1 on 01/07/2017 by Satya Perales MD Chest RHY: DISEASE [id number] / MGT Dev Amplia Quad Rail Car Repairman-D Surescn [id number] - [id number] Defibrillators N/A: [employer]:CARD 04/24/2018 [id number] / Implanted: Qty: 1 on 01/07/2017 by Satya Perales MD Chest RHY:PACING SYS [id number] / Grft Hemshld Dbl Silvio 0.3x3.0in [id number] - [id number] Graft/Patch Right: GETINGE 04/26/2021 [id number] / Implanted: Qty: 1 on 10/01/2016 by Miguelangel Stack MD Neck IND:MAQUET:CV [id number] / [id number] Lead Pacemkr Rosa Chew 45x1 [id number] - [id number] Pacemaker Lead N/A: [employer]:CARD 09/23/2018 [id number] / Implanted: Qty: 1 on 01/07/2017 by Satya Perales MD Chest RHY: DISEASE [id number] / MGT Results Not on fileafter 08/23/2017 Insurance Payer Benefit Plan / Group Subscriber ID Type Phone Address CARE IMPROVEMENT MEDICARE MGD CARE IMPROVEMENT PLUS xxxxxxxxx CARE DR dinora Hazel (Home) [address] [place] [address] Advance Directives For more information, please contact:[address] [phone] Code Status Date Activated Date Inactivated Comments Full Code 01/07/2017 1:15 PM 01/08/2017 4:34 PM This code status was determined by: Patient Full Code 10/01/2016 11:49 AM 10/03/2016 8:34 PM This code status was determined by: Patient Full Code 09/30/2016 6:24 PM 10/01/2016 11:49 AM This code status was determined by: Patient
--- OUTSIDE RECORDS SUMMARY | 2018-08-24 16:30 | XMS REPORT ---
:1930 [facility] [address] [place] [address] [address] [place] [address] Care Team Providers Name Role Phone MICHELLE CHUCK MOSELEY Unavailable Unavailable ABDIRAHMAN ONLAN Unavailable Unavailable Problems This patient has no known problems. Allergies, Adverse Reactions, Alerts This patient has no known allergies or adverse reactions. Medications This patient has no known medications. Results Test Description Test Time Test Comments Text Results Atomic Results Result Comments MAGNESIUM 2017-01-08 05:25:00 Test Item Value Reference Range Comments MAGNESIUM (BEAKER) (test wtpf=883) 2.0 mg/dL 1.6-2.6 Specimen slightly hemolyzed BASIC METABOLIC [id number] 05:25:00 Test Item Value Reference Range Comments SODIUM (BEAKER) (test 138 meq/L 136-145 vugk=250) POTASSIUM (BEAKER) (test 4.6 meq/L 3.5-5.1 Specimen slightly tesq=566) hemolyzed CHLORIDE (BEAKER) (test 108 meq/L 98-107 wybw=724) CO2 (BEAKER) (test 23 meq/L 22-29 zgdu=653) BLOOD UREA NITROGEN 14 mg/dL 7-21 (BEAKER) (test gwua=634) CREATININE (BEAKER) (test 0.87 mg/dL 0.57-1.25 Specimen slightly pliu=608) hemolyzed GLUCOSE RANDOM (BEAKER) 109 mg/dL 70-105 (test ujvl=723) CALCIUM (BEAKER) (test 8.9 mg/dL 8.4-10.2 nwst=247) EGFR (BEAKER) (test 62 mL/min/1.73 sq m ESTIMATED GFR IS NOT ivzl=7512) ACCURATE CREATININE CLEARANCE IN PREDICTING GLOMERULAR FILTRATION RATE. ESTIMATED GFR IS NOT APPLICABLE FOR DIALYSIS PATIENTS. CBC (HEMOGRAM ONLY)2017-01-08 05:22:00 Test Item Value Reference Range Comments WHITE BLOOD CELL COUNT (BEAKER) (test abdq=539) 11.1 K/ L 4.0-10.0 RED BLOOD CELL COUNT (BEAKER) (test dsns=483) 3.62 M/ L 4.00-5.00 HEMOGLOBIN (BEAKER) (test totf=204) 12.2 GM/DL 12.0-15.0 HEMATOCRIT (BEAKER) (test udeu=701) 36.3 % 36.0-45.0 MEAN CORPUSCULAR VOLUME (BEAKER) (test wmaf=275) 101.0 fL 82.0-99.0 MEAN CORPUSCULAR HEMOGLOBIN (BEAKER) (test 33.9 pg 27.0-33.0 ekfg=239) MEAN CORPUSCULAR HEMOGLOBIN CONC (BEAKER) (test 33.7 GM/DL 32.0-36.0 eeoc=027) RED CELL DISTRIBUTION WIDTH (BEAKER) (test 15.2 % 10.3-14.2 ncro=640) PLATELET COUNT (BEAKER) (test gdjr=989) 201 K/CU MM 150-430 MEAN PLATELET VOLUME (BEAKER) (test sjal=548) 7.6 fL 6.5-10.5 NUCLEATED RED BLOOD CELLS (BEAKER) (test 0 /100 WBC 0-0 nfpj=163) 0.00CBC (HEMOGRAM ONLY)2017-01-07 05:01:00 Test Item Value Reference Range Comments WHITE BLOOD CELL COUNT (BEAKER) (test bqcq=279) 5.8 K/ L 4.0-10.0 RED BLOOD CELL COUNT (BEAKER) (test szhq=168) 3.68 M/ L 4.00-5.00 HEMOGLOBIN (BEAKER) (test eurl=568) 12.1 GM/DL 12.0-15.0 HEMATOCRIT (BEAKER) (test hhsx=265) 36.9 % 36.0-45.0 MEAN CORPUSCULAR VOLUME (BEAKER) (test jkkc=517) 100.0 fL 82.0-99.0 MEAN CORPUSCULAR HEMOGLOBIN (BEAKER) (test 33.0 pg 27.0-33.0 qxvm=084) MEAN CORPUSCULAR HEMOGLOBIN CONC (BEAKER) (test 32.8 GM/DL 32.0-36.0 boas=791) RED CELL DISTRIBUTION WIDTH (BEAKER) (test 13.5 % 10.3-14.2 zneh=268) PLATELET COUNT (BEAKER) (test kqro=175) 204 K/CU MM 150-430 MEAN PLATELET VOLUME (BEAKER) (test dhua=169) 7.3 fL 6.5-10.5 NUCLEATED RED BLOOD CELLS (BEAKER) (test 0 /100 WBC 0-0 vpml=746) [id number] 02:15:00 Test Item Value Reference Range Comments MAGNESIUM (BEAKER) (test ossa=650) 2.2 mg/dL 1.6-2.6 BASIC METABOLIC [id number] 02:15:00 Test Item Value Reference Range Comments SODIUM (BEAKER) (test 142 meq/L 136-145 zvpw=758) POTASSIUM (BEAKER) (test 4.0 meq/L 3.5-5.1 cnhp=055) CHLORIDE (BEAKER) (test 110 meq/L 98-107 vbwr=500) CO2 (BEAKER) (test 23 meq/L 22-29 dbhj=011) BLOOD UREA NITROGEN 21 mg/dL 7-21 (BEAKER) (test xviv=399) CREATININE (BEAKER) (test 1.02 mg/dL 0.57-1.25 edxr=646) GLUCOSE RANDOM (BEAKER) 102 mg/dL 70-105 (test ehyc=337) CALCIUM (BEAKER) (test 8.9 mg/dL 8.4-10.2 slea=570) EGFR (BEAKER) (test 51 mL/min/1.73 sq m ESTIMATED GFR IS NOT jrnd=7258) ACCURATE CREATININE CLEARANCE IN PREDICTING GLOMERULAR FILTRATION RATE. ESTIMATED GFR IS NOT APPLICABLE FOR DIALYSIS PATIENTS. [id number] 02:02:00 Test Item Value Reference Range Comments PARTIAL THROMBOPLASTIN TIME (BEAKER) (test 67.1 seconds 22.5-36.0 bmlj=507) CBC W/PLT COUNT & AUTO [id number] 01:59:00 Test Item Value Reference Range Comments WHITE BLOOD CELL COUNT (BEAKER) (test jclk=186) 5.2 K/ L 4.0-10.0 RED BLOOD CELL COUNT (BEAKER) (test iexx=894) 3.33 M/ L 4.00-5.00 HEMOGLOBIN (BEAKER) (test wrjh=928) 11.4 GM/DL 12.0-15.0 HEMATOCRIT (BEAKER) (test daax=416) 33.5 % 36.0-45.0 MEAN CORPUSCULAR VOLUME (BEAKER) (test jxsw=543) 101.0 fL 82.0-99.0 MEAN CORPUSCULAR HEMOGLOBIN (BEAKER) (test 34.4 pg 27.0-33.0 kvie=747) MEAN CORPUSCULAR HEMOGLOBIN CONC (BEAKER) (test 34.1 GM/DL 32.0-36.0 oerj=439) RED CELL DISTRIBUTION WIDTH (BEAKER) (test 13.5 % 10.3-14.2 nzmi=260) PLATELET COUNT (BEAKER) (test nnyq=074) 184 K/CU MM 150-430 MEAN PLATELET VOLUME (BEAKER) (test extt=540) 7.0 fL 6.5-10.5 NUCLEATED RED BLOOD CELLS (BEAKER) (test 0 /100 WBC 0-0 ubuz=714) NEUTROPHILS RELATIVE PERCENT (BEAKER) (test 49 % mmma=297) LYMPHOCYTES RELATIVE PERCENT (BEAKER) (test 34 % awob=822) MONOCYTES RELATIVE PERCENT (BEAKER) (test 10 % larv=016) EOSINOPHILS RELATIVE PERCENT (BEAKER) (test 7 % owwg=075) BASOPHILS RELATIVE PERCENT (BEAKER) (test 0 % nert=285) NEUTROPHILS ABSOLUTE COUNT (BEAKER) (test 2.52 K/ L 1.80-8.00 jvom=118) LYMPHOCYTES ABSOLUTE COUNT (BEAKER) (test 1.75 K/ L 1.48-4.50 ccam=371) MONOCYTES ABSOLUTE COUNT (BEAKER) (test 0.54 K/ L 0.00-1.30 mwmt=066) EOSINOPHILS ABSOLUTE COUNT (BEAKER) (test 0.34 K/ L 0.00-0.50 nltx=292) BASOPHILS ABSOLUTE COUNT (BEAKER) (test 0.02 K/ L 0.00-0.20 ptgz=838) 0.00DIGOXIN [id number] 18:00:00 Test Item Value Reference Range Comments DIGOXIN LEVEL (BEAKER) (test tcfe=469) 0.4 ng/mL 0.8-2.0 TSH/FREE T4 IF [id number] 18:00:00 Test Item Value Reference Range Comments THYROID STIMULATING HORMONE (BEAKER) (test 1.47 uIU/mL 0.35-4.94 gdyw=783) [id number] 17:35:00 Test Item Value Reference Range Comments MAGNESIUM (BEAKER) (test mbtc=078) 2.4 mg/dL 1.6-2.6 Fasting lipid panelBASIC METABOLIC [id number] 17:35:00 Test Item Value Reference Range Comments SODIUM (BEAKER) (test 139 meq/L 136-145 gils=355) POTASSIUM (BEAKER) (test 3.9 meq/L 3.5-5.1 vmsp=795) CHLORIDE (BEAKER) (test 105 meq/L 98-107 gnnm=231) CO2 (BEAKER) (test 27 meq/L 22-29 xqut=024) BLOOD UREA NITROGEN 25 mg/dL 7-21 (BEAKER) (test wovk=473) CREATININE (BEAKER) (test 1.24 mg/dL 0.57-1.25 dtot=467) GLUCOSE RANDOM (BEAKER) 91 mg/dL 70-105 (test sbng=037) CALCIUM (BEAKER) (test 9.4 mg/dL 8.4-10.2 kfuk=845) EGFR (BEAKER) (test 41 mL/min/1.73 sq m ESTIMATED GFR IS NOT ofed=3753) ACCURATE CREATININE CLEARANCE IN PREDICTING GLOMERULAR FILTRATION RATE. ESTIMATED GFR IS NOT APPLICABLE FOR DIALYSIS PATIENTS. Fasting lipid panelLIPID [id number] 17:35:00 Test Item Value Reference Range Comments TRIGLYCERIDES (BEAKER) (test iemb=619) 81 mg/dL CHOLESTEROL (BEAKER) (test jngd=417) 224 mg/dL HDL CHOLESTEROL (BEAKER) (test kqzn=227) 96 mg/dL LDL CHOLESTEROL CALCULATED (BEAKER) (test 112 mg/dL euhq=864) Triglyceride Reference Range: Low Risk <150 Borderline 150- 199 High Risk 200-499 Very High Risk >=500Cholesterol Reference Range: Low Risk <200 Borderline 200-239 High Risk > 240HDL Cholesterol Reference Range: Low Risk >=60 High Risk <40LDL Cholesterol Reference Range: Optimal <100 Near Optimal 100-129 Borderline 130-159 High 160-189 Very High >=190 Fasting lipid panelHEPATIC FUNCTION [id number] 17:35:00 Test Item Value Reference Range Comments TOTAL PROTEIN (BEAKER) (test bqmx=926) 7.7 gm/dL 6.0-8.3 ALBUMIN (BEAKER) (test vziv=0391) 3.9 g/dL 3.5-5.0 BILIRUBIN TOTAL (BEAKER) (test kdui=260) 1.1 mg/dL 0.2-1.2 BILIRUBIN DIRECT (BEAKER) (test czrx=940) 0.5 mg/dL 0.1-0.5 ALKALINE PHOSPHATASE (BEAKER) (test mnik=814) 120 U/L 40-150 AST (SGOT) (BEAKER) (test lvhe=878) 19 U/L 5-34 ALT (SGPT) (BEAKER) (test zwzs=922) 19 U/L 6-55 Fasting lipid [id number] 17:24:00 Test Item Value Reference Range Comments PARTIAL THROMBOPLASTIN TIME (BEAKER) (test 37.0 seconds 22.5-36.0 zzpy=054) Prior to initiating heparinPROTHROMBIN TIME/[id number] 17:23:00 Test Item Value Reference Range Comments PROTIME (BEAKER) (test vdjg=001) 14.3 seconds 11.7-14.7 INR (BEAKER) (test ctxn=234) 1.1 <=5.9 RECOMMENDED COUMADIN/WARFARIN INR THERAPY RANGESSTANDARD DOSE: 2.0 - 3.0 Includes: PROPHYLAXIS forvenous thrombosis, systemic embolization; TREATMENT for venous thrombosis and/or pulmonary embolus.HIGH RISK: Target INR is 2.5-3.5 for patients with mechanical heart valves.Prior to initiating [id number] 17:23:00 Test Item Value Reference Range Comments PARTIAL THROMBOPLASTIN TIME (BEAKER) (test 36.6 seconds 22.5-36.0 wbhx=649) Prior to initiating heparinCBC W/PLT COUNT & AUTO [id number] 17: 20:00 Test Item Value Reference Range Comments WHITE BLOOD CELL COUNT (BEAKER) (test jvwd=136) 6.1 K/ L 4.0-10.0 RED BLOOD CELL COUNT (BEAKER) (test cnfq=074) 3.72 M/ L 4.00-5.00 HEMOGLOBIN (BEAKER) (test vncu=108) 12.4 GM/DL 12.0-15.0 HEMATOCRIT (BEAKER) (test jihm=625) 37.4 % 36.0-45.0 MEAN CORPUSCULAR VOLUME (BEAKER) (test fibp=974) 101.0 fL 82.0-99.0 MEAN CORPUSCULAR HEMOGLOBIN (BEAKER) (test 33.5 pg 27.0-33.0 vhym=414) MEAN CORPUSCULAR HEMOGLOBIN CONC (BEAKER) (test 33.2 GM/DL 32.0-36.0 fxqz=777) RED CELL DISTRIBUTION WIDTH (BEAKER) (test 13.5 % 10.3-14.2 amqa=122) PLATELET COUNT (BEAKER) (test jkmm=420) 219 K/CU MM 150-430 MEAN PLATELET VOLUME (BEAKER) (test chqe=425) 7.0 fL 6.5-10.5 NUCLEATED RED BLOOD CELLS (BEAKER) (test 0 /100 WBC 0-0 buve=867) NEUTROPHILS RELATIVE PERCENT (BEAKER) (test 51 % cacv=240) LYMPHOCYTES RELATIVE PERCENT (BEAKER) (test 33 % hlzn=901) MONOCYTES RELATIVE PERCENT (BEAKER) (test 10 % yoem=037) EOSINOPHILS RELATIVE PERCENT (BEAKER) (test 5 % fmmw=258) BASOPHILS RELATIVE PERCENT (BEAKER) (test 1 % bsxt=227) NEUTROPHILS ABSOLUTE COUNT (BEAKER) (test 3.09 K/ L 1.80-8.00 wzuy=431) LYMPHOCYTES ABSOLUTE COUNT (BEAKER) (test 1.99 K/ L 1.48-4.50 mlgf=504) MONOCYTES ABSOLUTE COUNT (BEAKER) (test 0.62 K/ L 0.00-1.30 ojoa=496) EOSINOPHILS ABSOLUTE COUNT (BEAKER) (test 0.31 K/ L 0.00-0.50 skwu=857) BASOPHILS ABSOLUTE COUNT (BEAKER) (test 0.08 K/ L 0.00-0.20 gden=383) PLATELET [id number] 17:16:00 Test Item Value Reference Range Comments PLATELET COUNT (BEAKER) (test hasf=670) 219 K/CU MM 150-430 BASIC METABOLIC [id number] 04:55:00 Test Item Value Reference Range Comments SODIUM (BEAKER) (test 141 meq/L 136-145 vlpz=731) POTASSIUM (BEAKER) (test 3.3 meq/L 3.5-5.1 wjpg=102) CHLORIDE (BEAKER) (test 104 meq/L 98-107 hrlu=197) CO2 (BEAKER) (test 28 meq/L 22-29 pkrv=609) BLOOD UREA NITROGEN 14 mg/dL 7-21 (BEAKER) (test wbtv=714) CREATININE (BEAKER) (test 0.80 mg/dL 0.57-1.25 ubdb=609) GLUCOSE RANDOM (BEAKER) 97 mg/dL 70-105 (test fkel=780) CALCIUM (BEAKER) (test 8.9 mg/dL 8.4-10.2 rgam=725) EGFR (BEAKER) (test 68 mL/min/1.73 sq m ESTIMATED GFR IS NOT jiov=4785) ACCURATE CREATININE CLEARANCE IN PREDICTING GLOMERULAR FILTRATION RATE. ESTIMATED GFR IS NOT APPLICABLE FOR DIALYSIS PATIENTS. CBC (HEMOGRAM ONLY)2016-10-03 04:47:00 Test Item Value Reference Range Comments WHITE BLOOD CELL COUNT (BEAKER) (test ntrs=933) 7.8 K/ L 4.0-10.0 RED BLOOD CELL COUNT (BEAKER) (test kdel=607) 3.12 M/ L 4.00-5.00 HEMOGLOBIN (BEAKER) (test dsng=166) 11.2 GM/DL 12.0-15.0 HEMATOCRIT (BEAKER) (test xnla=896) 32.5 % 36.0-45.0 MEAN CORPUSCULAR VOLUME (BEAKER) (test fgmn=943) 104.0 fL 82.0-99.0 MEAN CORPUSCULAR HEMOGLOBIN (BEAKER) (test 35.8 pg 27.0-33.0 stvr=472) MEAN CORPUSCULAR HEMOGLOBIN CONC (BEAKER) (test 34.4 GM/DL 32.0-36.0 qfrx=595) RED CELL DISTRIBUTION WIDTH (BEAKER) (test 12.8 % 10.3-14.2 yxjk=780) PLATELET COUNT (BEAKER) (test tuvf=191) 190 K/CU MM 150-430 MEAN PLATELET VOLUME (BEAKER) (test xzsb=159) 7.4 fL 6.5-10.5 NUCLEATED RED BLOOD CELLS (BEAKER) (test 0 /100 WBC 0-0 vuqt=031) 0.00PT/[id number] 04:41:00 Test Item Value Reference Range Comments PROTIME (BEAKER) (test xupo=758) 13.1 seconds 11.7-14.7 INR (BEAKER) (test tkou=809) 1.0 <=5.9 PARTIAL THROMBOPLASTIN TIME (BEAKER) (test 28.1 seconds 22.5-36.0 bnkx=232) RECOMMENDED COUMADIN/WARFARIN INR THERAPY RANGESSTANDARD DOSE: 2.0 - 3.0 Includes: PROPHYLAXIS forvenous thrombosis, systemic embolization; TREATMENT for venous thrombosis and/or pulmonary embolus.HIGH RISK: Target INR is 2.5-3.5 for patients with mechanical heart valves.CREATINE KINASE (CK), TOTAL AND [id number] 04:53:00 Test Item Value Reference Range Comments CREATINE KINASE TOTAL (BEAKER) (test hcya=864) 36 U/L 29-200 CREATINE KINASE-MB (BEAKER) (test fypf=235) 1.6 ng/mL 0.0-6.6 CREATINE KINASE-MB INDEX (BEAKER) (test lrap=323) 4.4 % Effective 06/14/2014: CK-MB Reference Range ChangeNew: 0.0-6.6 Previous: 0.0- 4.9CK-MB Reference Range:<6.7 Normal6.7-10.0 Borderline>10.0 AbnormalTROPONIN [id number] 04:53:00 Test Item Value Reference Range Comments TROPONIN I (BEAKER) (test igzf=108) 0.03 ng/mL 0.00-0.03 Effective 06/14/2014: Reference Range [...] acute neurological disease, and persistent tachyarrhythmia.BASIC METABOLIC [id number] 04:46:00 Test Item Value Reference Range Comments SODIUM (BEAKER) (test 139 meq/L 136-145 qqcd=713) POTASSIUM (BEAKER) (test 3.7 meq/L 3.5-5.1 aslz=186) CHLORIDE (BEAKER) (test 104 meq/L 98-107 vdfp=099) CO2 (BEAKER) (test 27 meq/L 22-29 taqy=350) BLOOD UREA NITROGEN 14 mg/dL 7-21 (BEAKER) (test mfgx=461) CREATININE (BEAKER) (test 0.82 mg/dL 0.57-1.25 aasm=610) GLUCOSE RANDOM (BEAKER) 102 mg/dL 70-105 (test uojy=975) CALCIUM (BEAKER) (test 9.1 mg/dL 8.4-10.2 jxoc=538) EGFR (BEAKER) (test 66 mL/min/1.73 sq m ESTIMATED GFR IS NOT fahj=2394) ACCURATE CREATININE CLEARANCE IN PREDICTING GLOMERULAR FILTRATION RATE. ESTIMATED GFR IS NOT APPLICABLE FOR DIALYSIS PATIENTS. PT/[id number] 04:41:00 Test Item Value Reference Range Comments PROTIME (BEAKER) (test shmd=335) 13.5 seconds 11.7-14.7 INR (BEAKER) (test ique=954) 1.0 <=5.9 PARTIAL THROMBOPLASTIN TIME (BEAKER) (test 33.1 seconds 22.5-36.0 xpdi=968) RECOMMENDED COUMADIN/WARFARIN INR THERAPY RANGESSTANDARD DOSE: 2.0 - 3.0 Includes: PROPHYLAXIS forvenous thrombosis, systemic embolization; TREATMENT for venous thrombosis and/or pulmonary embolus.HIGH RISK: Target INR is 2.5-3.5 for patients with mechanical heart valves.CBC (HEMOGRAM ONLY)2016-10-02 04:33:00 Test Item Value Reference Range Comments WHITE BLOOD CELL COUNT (BEAKER) (test eicw=528) 9.4 K/ L 4.0-10.0 RED BLOOD CELL COUNT (BEAKER) (test rxia=026) 3.07 M/ L 4.00-5.00 HEMOGLOBIN (BEAKER) (test cfkb=709) 11.0 GM/DL 12.0-15.0 HEMATOCRIT (BEAKER) (test ezyj=741) 31.9 % 36.0-45.0 MEAN CORPUSCULAR VOLUME (BEAKER) (test zwcl=074) 104.0 fL 82.0-99.0 MEAN CORPUSCULAR HEMOGLOBIN (BEAKER) (test 36.0 pg 27.0-33.0 pchk=324) MEAN CORPUSCULAR HEMOGLOBIN CONC (BEAKER) (test 34.6 GM/DL 32.0-36.0 yrbx=109) RED CELL DISTRIBUTION WIDTH (BEAKER) (test 12.7 % 10.3-14.2 hzgt=198) PLATELET COUNT (BEAKER) (test nglg=652) 205 K/CU MM 150-430 MEAN PLATELET VOLUME (BEAKER) (test bfdh=376) 7.3 fL 6.5-10.5 NUCLEATED RED BLOOD CELLS (BEAKER) (test 0 /100 WBC 0-0 ygrh=975) 0.00TSH/FREE T4 IF [id number] 19:30:00 Test Item Value Reference Range Comments THYROID STIMULATING HORMONE (BEAKER) (test 0.43 uIU/mL 0.35-4.94 kgvi=140) CREATINE KINASE (CK), TOTAL AND [id number] 19:14:00 Test Item Value Reference Range Comments CREATINE KINASE TOTAL (BEAKER) (test drep=793) 53 U/L 29-200 CREATINE KINASE-MB (BEAKER) (test qcpr=795) 2.6 ng/mL 0.0-6.6 CREATINE KINASE-MB INDEX (BEAKER) (test hbxr=284) 4.9 % Effective 06/14/2014: CK-MB Reference Range ChangeNew: 0.0-6.6 Previous: 0.0- 4.9CK-MB Reference Range:<6.7 Normal6.7-10.0 Borderline>10.0 AbnormalTROPONIN [id number] 19:14:00 Test Item Value Reference Range Comments TROPONIN I (BEAKER) (test rfnf=811) 0.01 ng/mL 0.00-0.03 Effective 06/14/2014: Reference Range [...] renalfailure, acidosis, acute neurological disease, and persistent tachyarrhythmia.[id number] 15:20: 00 Test Item Value Reference Range Comments MAGNESIUM (BEAKER) (test etxv=287) 1.9 mg/dL 1.6-2.6 BASIC METABOLIC [id number] 15:20:00 Test Item Value Reference Range Comments SODIUM (BEAKER) (test 141 meq/L 136-145 cpmj=313) POTASSIUM (BEAKER) (test 3.9 meq/L 3.5-5.1 toem=499) CHLORIDE (BEAKER) (test 108 meq/L 98-107 rqyg=661) CO2 (BEAKER) (test 25 meq/L 22-29 pjir=801) BLOOD UREA NITROGEN 14 mg/dL 7-21 (BEAKER) (test xgds=102) CREATININE (BEAKER) (test 0.84 mg/dL 0.57-1.25 zvfv=064) GLUCOSE RANDOM (BEAKER) 130 mg/dL 70-105 (test gdyn=249) CALCIUM (BEAKER) (test 8.8 mg/dL 8.4-10.2 ranw=007) EGFR (BEAKER) (test 64 mL/min/1.73 sq m ESTIMATED GFR IS NOT wozr=9213) ACCURATE CREATININE CLEARANCE IN PREDICTING GLOMERULAR FILTRATION RATE. ESTIMATED GFR IS NOT APPLICABLE FOR DIALYSIS PATIENTS. CBC (HEMOGRAM ONLY)2016-10-01 14:52:00 Test Item Value Reference Range Comments WHITE BLOOD CELL COUNT (BEAKER) (test mngs=592) 10.1 K/ L 4.0-10.0 RED BLOOD CELL COUNT (BEAKER) (test ilyz=662) 3.40 M/ L 4.00-5.00 HEMOGLOBIN (BEAKER) (test supa=075) 11.9 GM/DL 12.0-15.0 HEMATOCRIT (BEAKER) (test omnw=048) 34.6 % 36.0-45.0 MEAN CORPUSCULAR VOLUME (BEAKER) (test ehno=892) 102.0 fL 82.0-99.0 MEAN CORPUSCULAR HEMOGLOBIN (BEAKER) (test 35.1 pg 27.0-33.0 wcma=183) MEAN CORPUSCULAR HEMOGLOBIN CONC (BEAKER) (test 34.5 GM/DL 32.0-36.0 rxcf=249) RED CELL DISTRIBUTION WIDTH (BEAKER) (test 13.5 % 10.3-14.2 yukn=729) PLATELET COUNT (BEAKER) (test lfrm=447) 204 K/CU MM 150-430 MEAN PLATELET VOLUME (BEAKER) (test zmou=276) 7.4 fL 6.5-10.5 NUCLEATED RED BLOOD CELLS (BEAKER) (test 0 /100 WBC 0-0 qqur=766) 0.00BASIC METABOLIC [id number] 11:00:00 Test Item Value Reference Range Comments SODIUM (BEAKER) (test 142 meq/L 136-145 zedo=925) POTASSIUM (BEAKER) (test 4.5 meq/L 3.5-5.1 ptxw=571) CHLORIDE (BEAKER) (test 103 meq/L 98-107 krvj=696) CO2 (BEAKER) (test 28 meq/L 22-29 dpoy=589) BLOOD UREA NITROGEN 28 mg/dL 7-21 (BEAKER) (test zfuc=714) CREATININE (BEAKER) (test 1.04 mg/dL 0.57-1.25 piwx=708) GLUCOSE RANDOM (BEAKER) 98 mg/dL 70-105 (test buvp=091) CALCIUM (BEAKER) (test 9.8 mg/dL 8.4-10.2 lszm=090) EGFR (BEAKER) (test 50 mL/min/1.73 sq m ESTIMATED GFR IS NOT nzzo=5302) ACCURATE CREATININE CLEARANCE IN PREDICTING GLOMERULAR FILTRATION RATE. ESTIMATED GFR IS NOT APPLICABLE FOR DIALYSIS PATIENTS. CBC W/PLT COUNT & AUTO [id number] 10:59:00 Test Item Value Reference Range Comments WHITE BLOOD CELL COUNT (BEAKER) (test gbzn=706) 7.0 K/ L 4.0-10.0 RED BLOOD CELL COUNT (BEAKER) (test jsnm=503) 3.77 M/ L 4.00-5.00 HEMOGLOBIN (BEAKER) (test jrbs=559) 13.2 GM/DL 12.0-15.0 HEMATOCRIT (BEAKER) (test tzin=494) 38.5 % 36.0-45.0 MEAN CORPUSCULAR VOLUME (BEAKER) (test jdku=007) 102.0 fL 82.0-99.0 MEAN CORPUSCULAR HEMOGLOBIN (BEAKER) (test 34.9 pg 27.0-33.0 qqfu=588) MEAN CORPUSCULAR HEMOGLOBIN CONC (BEAKER) (test 34.2 GM/DL 32.0-36.0 xdqn=680) RED CELL DISTRIBUTION WIDTH (BEAKER) (test 13.6 % 10.3-14.2 ykws=582) PLATELET COUNT (BEAKER) (test bomv=930) 233 K/CU MM 150-430 MEAN PLATELET VOLUME (BEAKER) (test foog=834) 7.3 fL 6.5-10.5 NUCLEATED RED BLOOD CELLS (BEAKER) (test 0 /100 WBC 0-0 wbox=612) NEUTROPHILS RELATIVE PERCENT (BEAKER) (test 60 % emkf=570) LYMPHOCYTES RELATIVE PERCENT (BEAKER) (test 27 % xfrq=220) MONOCYTES RELATIVE PERCENT (BEAKER) (test 9 % oeup=049) EOSINOPHILS RELATIVE PERCENT (BEAKER) (test 3 % mjha=738) BASOPHILS RELATIVE PERCENT (BEAKER) (test 1 % izhj=659) NEUTROPHILS ABSOLUTE COUNT (BEAKER) (test 4.20 K/ L 1.80-8.00 selw=037) LYMPHOCYTES ABSOLUTE COUNT (BEAKER) (test 1.92 K/ L 1.48-4.50 vhbe=240) MONOCYTES ABSOLUTE COUNT (BEAKER) (test 0.60 K/ L 0.00-1.30 kwzc=470) EOSINOPHILS ABSOLUTE COUNT (BEAKER) (test 0.23 K/ L 0.00-0.50 dcvu=346) BASOPHILS ABSOLUTE COUNT (BEAKER) (test 0.07 K/ L 0.00-0.20 svkf=363) 0.00PT/[id number] 10:58:00 Test Item Value Reference Range Comments PROTIME (BEAKER) (test pojq=948) 12.7 seconds 11.7-14.7 INR (BEAKER) (test fepd=531) 1.0 <=5.9 PARTIAL THROMBOPLASTIN TIME (BEAKER) (test 29.7 seconds 22.5-36.0 lfdw=670) RECOMMENDED COUMADIN/WARFARIN INR THERAPY RANGESSTANDARD DOSE: 2.0 - 3.0 Includes: PROPHYLAXIS forvenous thrombosis, systemic embolization; TREATMENT for venous thrombosis and/or pulmonary embolus.HIGH RISK: Target INR is 2.5-3.5 for patients with mechanical heart valves.
[2018-08-24] MEDS ORDERED: PANTOPRAZOLE 40 MG INJ ONE (17:41)
[2018-08-24] MEDS ORDERED: NA CHLORIDE 0.9% 1,000 ML ONE (17:41)
[2018-08-24 17:56] LABS: Protime INR 1.34
[2018-08-24 17:57] LABS: Albumin 3.3 g/dL (3.4-5.0); Bilirubin Direct 0.2 mg/dL (0-0.2); Bilirubin Total 0.5 mg/dL (0.2-1.0); Magnesium 2.4 mg/dL (1.8-2.4); Potassium 4.1 mmol/L (3.5-5.1); Troponin (Emerg Dept Use Only) 0.02 ng/mL (0.0-0.045)
--- NOTE | 2018-08-24 18:15 | RAD REPORT ---
EXAM DESCRIPTION: RAD - Chest Single View - 08/24/2018 6:05 pm CLINICAL HISTORY: Cough, difficulty breathing COMPARISON: August 13 TECHNIQUE: AP portable chest image was obtained 1801 hour . FINDINGS: Patient has chronic interstitial lung disease with increased opacification in the medial r ight lung base. Prominent left hemidiaphragm elevation again noted. Left-sided pacemaker/ defibrillat or remains in place. Cardiomegaly is present with vasculature similar to comparison. No measurable pl eural effusion and no pneumothorax. No acute bony abnormality seen. No acute aortic findings suspecte d. IMPRESSION: Suspected medial right lung base pneumonia superimposed on chronic interstitial lung dis ease. Stable cardiomegaly.
[2018-08-24 18:39] LABS: Absolute Monocytes 2.6 K/uL (0.1-1.3); Basophils % 1.3 % (0-1.3); Eosinophils % 1.1 % (0-4.4); Lymphocytes % 23.6 % (15.3-44.8); Monocytes % 15.4 % (3.3-12.3); RBC Red Blood Cell Count 2.09 M/uL (3.86-4.86)
--- NOTE | 2018-08-24 18:41 | EDPHYS ---
Physician Documentation [facility] Name: Nikky Ocampo Age: 88 yrs Sex: Female : 1930 Arrival Date: 08/24/2018 Time: 16:34 Bed 2 Private MD: ED Physician Mahesh Macias HPI: 08/24 16:44 This 88 yrs old Female presents to ER via EMS with complaints of sob and zeynep weak, hypoxia. 16:44 The patient has shortness of breath at rest, with light activity. Onset: The zeynep symptoms/episode began/occurred just prior to arrival. Duration: The symptoms are continuous, and are steadily getting worse. The patient's shortness of breath has no apparent modifying factors. Associated signs and symptoms: The patient has no apparent associated signs or symptoms. Severity of symptoms: At their worst the symptoms were mild moderate in the emergency department the symptoms are unchanged. Severity of symptoms: At their worst the symptoms were moderate. Historical: - Allergies: 16:41 Codeine; ss - Home Meds: 18:09 tramadol 50 mg Oral tab 1 tab once a day [Active]; Bactrim DS 800-160 mg Oral tab 1 tab ss q12 hours x 10 days [Active]; digoxin 125 mcg Oral tab 1 tab Every other day [Active]; aspercreme lotion 10% PRN [Active]; levothyroxine 50 mcg tab 1 tab once daily [Active]; metoprolol succinate 25 mg Oral Tb24 twice a day [Active]; Eliquis 5 mg oral tab 1 tab 2 times per day [Active]; Restasis ophthalmic [Active]; ranitidine HCl 150 mg Oral cap once daily [Active]; gabapentin 400 mg Oral cap 2 cap 4x per day [Active]; furosemide 20 mg Oral tab 1 tab as needed [Active]; Tasigna oral oral 2 caps every 12 hours [Active]; 18:11 Prednisone Oral [Active]; ss - PMHx: 16:41 CHF; Chronic leukemia; colon cancer; Hypertension; Pacemaker; ss - PSHx: 16:41 Carotid surgery; ss - Immunization history:: Adult Immunizations up to date. - Social history:: Smoking status: Patient/guardian denies using tobacco. - Ebola Screening: : Patient denies exposure to infectious person Patient denies travel to an Ebola-affected area in the 21 days before illness onset. - Family history:: not pertinent. ROS: 16:44 Constitutional: Negative for fever, chills, and weight loss, Eyes: Negative for injury, zeynep pain, redness, and discharge, ENT: Negative for injury, pain, and discharge, Neck: Negative for injury, pain, and swelling, Cardiovascular: Negative for chest pain, palpitations, and edema, Abdomen/GI: Negative for abdominal pain, nausea, vomiting, diarrhea, and constipation, Back: Negative for injury and pain, : Negative for injury, bleeding, discharge, and swelling, MS/Extremity: Negative for injury and deformity, Skin: Negative for injury, rash, and discoloration, Neuro: Negative for headache, weakness, numbness, tingling, and seizure, Psych: Negative for depression, anxiety, suicide ideation, homicidal ideation, and hallucinations, Allergy/Immunology: Negative for hives, rash, and allergies, Endocrine: Negative for neck swelling, polydipsia, polyuria, polyphagia, and marked weight changes, Hematologic/Lymphatic: Negative for swollen nodes, abnormal bleeding, and unusual bruising. 16:44 Respiratory: Positive for cough. Exam: 16:44 Constitutional: This is a well developed, well nourished patient who is awake, alert, zeynep and in no acute distress. Head/Face: Normocephalic, atraumatic. Eyes: Pupils equal round and reactive to light, extra-ocular motions intact. Lids and lashes normal. Conjunctiva and sclera are non-icteric and not injected. Cornea within normal limits. Periorbital areas with no swelling, redness, or edema. ENT: Nares patent. No nasal discharge, no septal abnormalities noted. Tympanic membranes are normal and external auditory canals are clear. Oropharynx with no redness, swelling, or masses, exudates, or evidence of obstruction, uvula midline. Mucous membranes moist. Neck: Trachea midline, no thyromegaly or masses palpated, and no cervical lymphadenopathy. Supple, full range of motion without nuchal rigidity, or vertebral point tenderness. No Meningismus. Chest/axilla: Normal chest wall appearance and motion. Nontender with no deformity. No lesions are appreciated. Cardiovascular: Regular rate and rhythm with a normal S1 and S2. No gallops, murmurs, or rubs. Normal PMI, no JVD. No pulse deficits. Abdomen/GI: Soft, non-tender, with normal bowel sounds. No distension or tympany. No guarding or rebound. No evidence of tenderness throughout. Back: No spinal tenderness. No costovertebral tenderness. Full range of motion. Female : Normal external genitalia. Skin: Warm, dry with normal turgor. Normal color with no rashes, no lesions, and no evidence of cellulitis. MS/ Extremity: Pulses equal, no cyanosis. Neurovascular intact. Full, normal range of motion. Neuro: Awake and alert, GCS 15, oriented to person, place, time, and situation. Cranial nerves II-XII grossly intact. Motor strength 5/5 in all extremities. Sensory grossly intact. Cerebellar exam normal. Normal gait. Psych: Awake, alert, with orientation to person, place and time. Behavior, mood, and affect are within normal limits. 16:44 Respiratory: mild respiratory distress is noted, Respirations: normal, Breath sounds: decreased breath sounds, that are mild, rhonchi, that are mild. Vital Signs: 16:41 BP 118 / 56; Pulse 68; Resp 24; Temp 98.4(O); Pulse Ox 87% on R/A; Weight 57.79 kg; ss Height 5 ft. 0 in. (152.40 cm); Pain 0/10; 17:52 BP 117 / 46; Pulse 60; Resp 22; Pulse Ox 100% on 2 lpm NC; Pain 0/10; ss 22:00 BP 126 / 52; Pulse 61; Resp 18; Temp 98.2; Pulse Ox 98% ; Pain 0/10; ea 16:41 Body Mass Index 24.88 (57.79 kg, 152.40 cm) MDM: 16:[address] [facility] 16:48 Data reviewed: vital signs, nurses notes, lab test result(s), EKG, radiologic studies, [facility] CT scan, plain films. 08/24 16:43 Order name: Basic Metabolic Panel; Complete Time: 18:25 [facility] 08/24 16:43 Order name: CBC with Diff [facility] 08/24 16:43 Order name: LFT's; Complete Time: 18:25 [facility] 08/24 16:43 Order name: Magnesium; Complete Time: 18:25 [facility] 08/24 16:43 Order name: NT PRO-BNP; Complete Time: 18:25 [facility] 08/24 16:43 Order name: PT-INR; Complete Time: 18:25 [facility] 08/24 16:43 Order name: Troponin (emerg Dept Use Only); Complete Time: 18:25 [facility] 08/24 16:43 Order name: Type And Screen [facility] 08/24 16:43 Order name: Blood Culture Adult (2) [facility] 08/24 16:43 Order name: Lipase; Complete Time: 18:25 [facility] 08/24 16:43 Order name: Urine Culture [facility] 08/24 16:52 Order name: Bb Add On bd 08/24 18:26 Order name: Packed RBC Leukored -1 EDMS 08/24 18:26 Order name: Digoxin; Complete Time: 19:18 [facility] 08/24 16:43 Order name: XRAY Chest (1 view); Complete Time: 18:25 [facility] 08/24 19:29 Order name: Urine Dipstick--Ancillary (enter results) mw2 08/24 20:25 Order name: CBC with Automated Diff EDMS 08/24 20:25 Order name: CBC with Automated Diff EDMS 08/24 20:25 Order name: Comprehensive Metabolic Panel EDMS 08/24 20:25 Order name: Comprehensive Metabolic Panel EDMS 08/24 20:25 Order name: Lipid Profile EDMS 08/24 20:25 Order name: Lipid Profile EDMS 08/24 20:25 Order name: Magnesium EDMS 08/24 20:25 Order name: Magnesium EDMS 08/24 20:25 Order name: Phosphorus EDMS 08/24 20:25 Order name: Phosphorus EDMS 08/24 22:20 Order name: Manual Differential EDMS 08/24 16:43 Order name: EKG; Complete Time: 16:44 [facility] 08/24 16:43 Order name: Cardiac monitoring; Complete Time: 17:22 [facility] 08/24 16:43 Order name: EKG - Nurse/Tech; Complete Time: 17:22 [facility] 08/24 16:43 Order name: IV Saline Lock; Complete Time: 17:22 [facility] 08/24 16:43 Order name: Labs collected and sent; Complete Time: 17:22 [facility] 08/24 16:43 Order name: O2 Per Protocol; Complete Time: 17:22 [facility] 08/24 16:43 Order name: O2 Sat Monitoring; Complete Time: 17:22 [facility] 08/24 16:43 Order name: Urine Dipstick-Ancillary (obtain specimen); Complete Time: 19:39 [facility] 08/24 18:33 Order name: Transfuse; Complete Time: 20:28 [facility] 08/24 20:25 Order name: Heart Healthy EDMS Administered Medications: Discontinued: NS 0.9% 1000 ml IV at 75 ml/hr continuous 17:43 Drug: NS 0.9% 1000 ml Route: IV; Rate: 75 ml/hr; Site: right antecubital; ss 18:01 Not Given (Has been taken off due to interaction with Tasigna): ProTONIX 40 mg IVP once ss 19:39 Drug: Lasix 40 mg Route: IVP; Site: right antecubital; tl2 22:09 Follow up: Response: No adverse reaction ea 19:39 Drug: Rocephin - (cefTRIAXone) 1 grams Route: IVPB; Infused Over: 30 mins; Site: right tl2 antecubital; 20:00 Follow up: Response: No adverse reaction; IV Status: Completed infusion ea 20:12 Drug: Zithromax 500 mg Route: IVPB; Infused Over: 1 hrs; Site: right hand; tl2 21:20 Follow up: Response: No adverse reaction; IV Status: Completed infusion ea Disposition: 08/24/18 18:40 Hospitalization ordered by Tanner Pearl for Inpatient Admission. Preliminary diagnosis are Anemia, unspecified - CML, Dyspnea, unspecified, Hypoxemia, Pneumonia due to other specified bacteria - right middle lobe, Cardiomegaly, Unspecified combined systolic (congestive) and diastolic (congestive) heart failure, Urinary tract infection, site not specified. - Bed requested for Telemetry/MedSurg (Inpatient). - Status is Inpatient Admission. ea - Condition is Fair. - Problem is new. - Symptoms have improved. UTI on Admission? Yes Signatures: Dispatcher [employer] EDOR Mahesh Macias MD MD cha Smirch, Shelby, RN RN ss Garcia, Cindy, RN RN Betzy Dorantes RN RN 2 Adina Carrillo RN RN ea Corrections: (The following items were deleted from the chart) 18:11 16:41 Allergies: Bosulif; ss ss 18:42 18:40 Hospitalization Ordered by Tanner Pearl MD for Inpatient Admission. Preliminary [facility] diagnosis is Anemia, unspecified; Dyspnea, unspecified; Hypoxemia; Pneumonia due to other specified bacteria - right middle lobe; Cardiomegaly; Unspecified combined systolic (congestive) and diastolic (congestive) heart failure. Bed requested for Telemetry/MedSurg (Inpatient). Status is Inpatient Admission. Condition is Fair. Problem is new. Symptoms have improved. UTI on Admission? No. [facility] 19:19 18:42 08/24/2018 18:40 Hospitalization Ordered by Tanner Pearl MD for Inpatient zeynep Admission. Preliminary diagnosis is Anemia, unspecified - CML; Dyspnea, unspecified; Hypoxemia; Pneumonia due to other specified bacteria - right middle lobe; Cardiomegaly; Unspecified combined systolic (congestive) and diastolic (congestive) heart failure. Bed requested for Telemetry/MedSurg (Inpatient). Status is Inpatient Admission. Condition is Fair. Problem is new. Symptoms have improved. UTI on Admission? No. zeynep 21:29 19:19 08/24/2018 18:40 Hospitalization Ordered by Tanner Pearl MD for Inpatient cg Admission. Preliminary diagnosis is Anemia, unspecified - CML; Dyspnea, unspecified; Hypoxemia; Pneumonia due to other specified bacteria - right middle lobe; Cardiomegaly; Unspecified combined systolic (congestive) and diastolic (congestive) heart failure; Urinary tract infection, site not specified. Bed requested for Telemetry/MedSurg (Inpatient). Status is Inpatient Admission. Condition is Fair. Problem is new. Symptoms have improved. UTI on Admission? Yes. [facility] 22:47 21:29 08/24/2018 18:40 Hospitalization Ordered by Tanner Pearl MD for Inpatient ea Admission. Preliminary diagnosis is Anemia, unspecified - CML; Dyspnea, unspecified; Hypoxemia; Pneumonia due to other specified bacteria - right middle lobe; Cardiomegaly; Unspecified combined systolic (congestive) and diastolic (congestive) heart failure; Urinary tract infection, site not specified. Bed requested for Telemetry/MedSurg (Inpatient). Status is Inpatient Admission. Condition is Fair. Problem is new. Symptoms have improved. UTI on Admission? Yes. cg
--- NOTE | 2018-08-24 18:41 | ER ---
Nurse's Notes [facility] Name: Nikky Ocampo Age: 88 yrs Sex: Female : 1930 Arrival Date: 08/24/2018 Time: 16:34 Bed 2 Private MD: Diagnosis: Anemia, unspecified-CML;Dyspnea, unspecified;Hypoxemia;Pneumonia due to other specified bacteria-right middle lobe;Cardiomegaly;Unspecified combined systolic (congestive) and diastolic (congestive) heart failure;Urinary tract infection, site not specified Presentation: 08/24 16:36 Presenting complaint: Patient states: difficulty breathing that began earlier in the ss day, that has gotten worse especially with exertion. Pt was recently discharge from the hospital after receiving 3 units of blood. Transition of care: patient was not received from another setting of care. Onset of symptoms was August 24, 2018. Risk Assessment: Do you want to hurt yourself or someone else? Patient reports no desire to harm self or others. Initial Sepsis Screen: Does the patient have a suspected source of infection? No. Patient's initial sepsis screen is negative. Initial Sepsis Screen: Does the patient meet any 2 criteria? RR > 20 per min. Care prior to arrival: None. 16:36 Acuity: TASIA 3 16:36 Method Of Arrival: EMS: [facility] Historical: - Allergies: 16:41 Codeine; ss - Home Meds: 18:09 tramadol 50 mg Oral tab 1 tab once a day [Active]; Bactrim DS 800-160 mg Oral tab 1 tab ss q12 hours x 10 days [Active]; digoxin 125 mcg Oral tab 1 tab Every other day [Active]; aspercreme lotion 10% PRN [Active]; levothyroxine 50 mcg tab 1 tab once daily [Active]; metoprolol succinate 25 mg Oral Tb24 twice a day [Active]; Eliquis 5 mg oral tab 1 tab 2 times per day [Active]; Restasis ophthalmic [Active]; ranitidine HCl 150 mg Oral cap once daily [Active]; gabapentin 400 mg Oral cap 2 cap 4x per day [Active]; furosemide 20 mg Oral tab 1 tab as needed [Active]; Tasigna oral oral 2 caps every 12 hours [Active]; 18:11 Prednisone Oral [Active]; ss - PMHx: 16:41 CHF; Chronic leukemia; colon cancer; Hypertension; Pacemaker; ss - PSHx: 16:41 Carotid surgery; ss - Immunization history:: Adult Immunizations up to date. - Social history:: Smoking status: Patient/guardian denies using tobacco. - Ebola Screening: : Patient denies exposure to infectious person Patient denies travel to an Ebola-affected area in the 21 days before illness onset. - Family history:: not pertinent. Screenin:22 Abuse screen: Denies threats or abuse. Denies injuries from another. Nutritional ss screening: No deficits noted. Tuberculosis screening: No symptoms or risk factors identified. Never had TB. Fall Risk No fall in past 12 months (0 pts). Secondary diagnosis (15 points) currently receiving O2 therapy. IV access (20 points). Ambulatory Aid- None/Bed Rest/Nurse Assist (0 pts). Gait- Normal/Bed Rest/Wheelchair (0 pts) Mental Status- Oriented to own ability (0 pts). Assessment: 16:45 General: Appears in no apparent distress. Behavior is calm, cooperative, Reports ss feeling ill for 0-12 hours, Denies fever, fatigue, chills. Pain: Denies pain. Neuro: Level of Consciousness is awake, alert, obeys commands, Oriented to person, place, time, situation, Pupils are PERRLA. Cardiovascular: Capillary refill < 3 seconds is brisk in bilateral fingers Patient's skin is warm and dry. Respiratory: Airway is patent Respiratory effort is even, labored, Respiratory pattern is regular, Breath sounds are diminished in left posterior lower lobe and right posterior lower lobe. Respiratory: Reports labored breathing that began this morning, and became worse throughout the day. Worse with exertion. GI: Patient currently denies abdominal pain, diarrhea, nausea, vomiting. : Denies burning with urination, urinary frequency. EENT: Nares are clear Oral mucosa is moist. Throat is clear. Derm: Skin is intact, is healthy with good turgor, Skin is dry, Skin is pink, warm \T\ dry. normal. Musculoskeletal: Circulation, motion, and sensation intact. Range of motion: intact in all extremities, Swelling absent. 21:11 Reassessment: Dr. Macias approved for pt to take her chemo medication, Tasigna. tl2 22:23 Reassessment: Patient and/or family updated on plan of care and expected duration. Pain ea level reassessed. Patient is alert, oriented x 3, equal unlabored respirations, skin warm/dry/pink. Report called to receiving nurse on second floor. 22:46 Reassessment: Patient and/or family updated on plan of care and expected duration. Pain ea level reassessed. Patient is alert, oriented x 3, equal unlabored respirations, skin warm/dry/pink. Pt admitted to second floor, pt taken via wheelchair per tech, tolerating well. Pt accompanied by family. Vital Signs: 16:41 BP 118 / 56; Pulse 68; Resp 24; Temp 98.4(O); Pulse Ox 87% on R/A; Weight 57.79 kg; ss Height 5 ft. 0 in. (152.40 cm); Pain 0/10; 17:52 BP 117 / 46; Pulse 60; Resp 22; Pulse Ox 100% on 2 lpm NC; Pain 0/10; ss 22:00 BP 126 / 52; Pulse 61; Resp 18; Temp 98.2; Pulse Ox 98% ; Pain 0/10; ea 16:41 Body Mass Index 24.88 (57.79 kg, 152.40 cm) ED Course: 16:34 Patient arrived in ED. ss 16:38 Triage completed. 16:38 EKG done, by air moving technician. reviewed by Mahesh Macias MD. sm3 16:40 Nicholas Flores NP is PHCP. pm1 16:40 Mahesh Macias MD is Attending Physician. pm1 16:41 Arm band placed on right wrist. ss 17:12 Radiology exam delayed due to IV insertion attempt and/or patient not having jb2 appropriate IV at this time. 17:22 Mariella Elias, AKILA is Primary Nurse. 17:22 Inserted saline lock: 22 gauge in right antecubital area, using aseptic technique. Blood collected. Oxygen administration via nasal cannula \T\ 2L/min. 17:22 Patient has correct armband on for positive identification. Bed in low position. Call ss light in reach. 18:06 XRAY Chest (1 view) In Process Unspecified. EDMS 18:37 Tanner Pearl MD is Hospitalizing Provider. zeynep 19:20 Inserted saline lock: 22 gauge in right hand, using aseptic technique. tl2 22:04 No provider procedures requiring assistance completed. Patient admitted, IV remains in ea place. Administered Medications: Discontinued: NS 0.9% 1000 ml IV at 75 ml/hr continuous 17:43 Drug: NS 0.9% 1000 ml Route: IV; Rate: 75 ml/hr; Site: right antecubital; ss 18:01 Not Given (Has been taken off due to interaction with Tasigna): ProTONIX 40 mg IVP once ss 19:39 Drug: Lasix 40 mg Route: IVP; Site: right antecubital; tl2 22:09 Follow up: Response: No adverse reaction ea 19:39 Drug: Rocephin - (cefTRIAXone) 1 grams Route: IVPB; Infused Over: 30 mins; Site: right tl2 antecubital; 20:00 Follow up: Response: No adverse reaction; IV Status: Completed infusion ea 20:12 Drug: Zithromax 500 mg Route: IVPB; Infused Over: 1 hrs; Site: right hand; tl2 21:20 Follow up: Response: No adverse reaction; IV Status: Completed infusion ea Outcome: 18:40 Decision to Hospitalize by Provider. zeynep 22:05 Condition: stable ea 22:05 Instructed on the need for admit, Demonstrated understanding of instructions. 22:25 Admitted to Med/surg accompanied by nurse, accompanied by tech, room 217, with chart, ea Report called to Receiving nurse on second floor. 22:47 Patient left the ED. ea Signatures: Dispatcher [employer] EDMahesh Stevens MD MD cha Buechter, Jesse jb2 Mariella Elias RN RN ss Nicholas Flores, [employer] pm1 Betzy Dorantes RN RN tl2 Adina Carrillo RN RN ea Montes, Shakira 3 Corrections: (The following items were deleted from the chart) 18:11 16:41 Allergies: Bosulif; ss ss 22:24 22:23 Reassessment: Patient and/or family updated on plan of care and expected ea duration. Pain level reassessed. Patient is alert, oriented x 3, equal unlabored respirations, skin warm/dry/pink. Report called to receiving nurse on second floor. ea
[2018-08-24 18:42] LABS: Hematocrit 22.3 % (36.0-45.0)
[2018-08-24] MEDS ORDERED: FUROSEMIDE 40 MG/4 ML VIAL ONE (19:33)
[2018-08-24] MEDS ORDERED: AZITHROMYCIN 500 MG/250 ML BAG ONE (19:33)
[2018-08-24] MEDS ORDERED: DIPHENHYDRAMINE 50 MG/ML VIAL ONE (19:33)
[2018-08-24] MEDS ORDERED: ACETAMINOPHEN 325 MG TABLET ONE (19:33)
[2018-08-24] MEDS ORDERED: CEFTRIAXONE/SWI 1gm 1 GM/10 ML SYR ONE (19:33)
[2018-08-24] MEDS ORDERED: NA CHLORIDE 0.9% 250 ML ONE ×2 (19:53→23:22)
[2018-08-24 20:19] LABS: Urine Blood NEGATIVE (NEG); Urine Glucose NEGATIVE (NEG); Urine Protein NEGATIVE (NEG); Urine Specific Gravity <1.005 (1.005-1.030)
[2018-08-24] MEDS ORDERED: MAGNESIUM HYDROXIDE 8% 30 ML PO PRN (20:21)
[2018-08-24] MEDS ORDERED: ONDANSETRON 4 MG/2 ML VIAL IV PRN (20:21)
[2018-08-24] MEDS ORDERED: ACETAMINOPHEN 500 MG TAB PO PRN (20:21)
[2018-08-24] MEDS ORDERED: ALBUTEROL 2.5 MG/3 ML NEB SOL NEB PRN (20:21)
--- NOTE | 2018-08-24 20:48 | EKG ---
Test Date: 2018-08-24 Test Time: 16:32:59 [employer]: [employer] MEASUREMENT RESULTS: Intervals: Rate: 64 DC: 178 QRSD: 108 QT: 424 QTc: 437 [place]: P: 67 DC: 178 QRS: -45 T: 4 INTERPRETIVE STATEMENTS: Atrial-paced rhythm Left anterior fascicular block Lateral infarct, age undetermined ST & T wave abnormality, consider anterior ischemia Abnormal ECG Compared to ECG 08/17/2018 01:57:25 Left anterior fascicular block now present Myocardial infarct finding now present Atrial fibrillation no longer present Ventricular premature complex(es) no longer present Left-axis deviation no longer present Left ventricular hypertrophy no longer present ST (T wave) deviation still present Possible ischemia still present Electronically Signed On 08-24-18 20:47:36 REPORTING ANALYST by Freddie Santiago
[2018-08-24] MEDS: NA CHLORIDE 0.9% 1,000 ML IV SCH (21:00)
[2018-08-24] MEDS ORDERED: CEFTRIAXONE 1 GM/NS 50 ML 1 GM/50 ML BAG IV SCH (21:00)
[2018-08-24 22:16] LABS: Platelet Estimate INCR
[2018-08-24 22:17] LABS: Anisocytosis 2+; Blood Morphology Comment NOTED (NOT SEEN); Platelets, Giant P
[2018-08-24 22:19] LABS: Hypochromasia 2+; Macrocytosis 2+
[2018-08-24] MEDS ORDERED: LABETALOL 20 MG/4ML SYRINGE IV ONE (23:00)
[2018-08-24] MEDS ORDERED: FUROSEMIDE 20 MG/ 2ML VIAL IV ONE ×2 (23:00→23:02)
[2018-08-25 00:37] VITALS: BMI 21.3
[2018-08-25] MEDS ORDERED: MONTELUKAST 10 MG TAB PO PRN (05:49)
[2018-08-25] MEDS ORDERED: FUROSEMIDE 20 MG TABLET PO PRN (05:49)
--- NOTE | 2018-08-25 05:59 | P.HP ---
Date of Service: 08/24/18 Dictation # [id number]
[2018-08-25] MEDS: GABAPENTIN 400 MG CAP PO SCH ×4 (06:00→22:02)
[2018-08-25 06:25] LABS: Absolute Lymphocytes (CBC) 2.8 K/uL (0.7-4.9); Absolute Monocytes 2.9 K/uL (0.1-1.3); Absolute Neutrophil 10.7 K/uL (1.8-8.0); Basophils % 1.1 % (0-1.3); Eosinophils % 0.6 % (0-4.4); Hematocrit 26.4 % (36.0-45.0); Lymphocytes % 16.9 % (15.3-44.8); MPV 8.3 fL (7.6-11.3); Monocytes % 17.5 % (3.3-12.3); RBC Red Blood Cell Count 3.04 M/uL (3.86-4.86)
[2018-08-25] MEDS: LEVOTHYROXINE SOD 0.05 MG TABLET PO SCH (06:26)
[2018-08-25 06:37] LABS: Albumin 3.1 g/dL (3.4-5.0); Bilirubin Total 0.5 mg/dL (0.2-1.0); Magnesium 2.4 mg/dL (1.8-2.4); Phosphorus 4.7 mg/dL (2.5-4.9); Potassium 4.2 mmol/L (3.5-5.1); Protein, Total 5.8 g/dL (6.4-8.2)
[2018-08-25] MEDS: AZITHROMYCIN 250 MG TAB PO SCH ×2 (08:47→08:54)
[2018-08-25] MEDS: predniSONE 10 MG TAB PO SCH (08:47)
[2018-08-25] MEDS: METOPROLOL XL 25 MG TAB PO SCH ×2 (08:47→22:01)
[2018-08-25] MEDS: APIXABAN 2.5 MG TABLET PO SCH ×2 (08:47→22:01)
[2018-08-25] MEDS: RANITIDINE 150 MG TABLET PO SCH (08:48)
[2018-08-25] MEDS ORDERED: DIGOXIN 0.125 MG TABLET PO SCH (09:00)
[2018-08-25] MEDS ORDERED: ENOXAPARIN 40 MG/0.4 ML SQ SCH (09:00)
[2018-08-25] MEDS ORDERED: HOME MED 1 EA UNK (Cyclosporine [Restasis] 1 EACH) OP SCH (09:00)
[2018-08-25] MEDS ORDERED: CEFTRIAXONE 1 GM/NS 50 ML 1 GM/50 ML BAG IV SCH (09:00)
[2018-08-25] MEDS ORDERED: CEFTRIAXONE/SWI 1gm 1 GM/10 ML SYR IV SCH (09:00)
[2018-08-25] MEDS ORDERED: AZELASTINE HCL OPTH SCH (09:00)
[2018-08-25] MEDS: NA CHLORIDE 0.9% 1,000 ML IV SCH (10:20)
[2018-08-25] MEDS ORDERED: GABAPENTIN 300 MG CAP PO SCH ×3 (13:00→17:00)
[2018-08-25] MEDS: ALBUTEROL 2.5 MG/3 ML NEB SOL NEB PRN ×3 (15:11→22:56)
--- NOTE | 2018-08-25 15:11 | P.PN ---
Subjective Date of Service: 08/25/18 Subjective: Tolerating diet, Ambulating, Improving, Working w/ PT, Doing well Review of Systems 10-point ROS is otherwise unremarkable Physical Examination - Vital Signs Temperature: 97.8 F Blood Pressure: 122/60 Pulse: 61 Respirations: 17 Pulse Ox (%): 98 - Physical Exam General: Alert, In no apparent distress HEENT: Atraumatic, PERRLA, EOMI Neck: Supple, JVD not distended Respiratory: Clear to auscultation bilaterally, Normal air movement Cardiovascular: Regular rate/rhythm, Normal S1 S2 Gastrointestinal: Normal bowel sounds, No tenderness Musculoskeletal: No tenderness Integumentary: No rashes Neurological: Normal speech, Normal tone, Normal affect Lymphatics: No axilla or inguinal lymphadenopathy - Studies Laboratory Data (last 24 hrs) 08/24/18 17:15: PT 15.9 H, INR 1.34 08/24/18 17:15: WBC 17.1 H D, Hgb 6.8 L* D, Hct 22.3 L D, Plt Count 3237 H* D 08/24/18 17:15: Sodium 140, Potassium 4.1, BUN 49 H D, Creatinine 1.15, Glucose 125 H, Magnesium 2.4, Total Bilirubin 0.5, AST 34, ALT 25, Alkaline Phosphatase 63, Lipase 178 Medications List Reviewed: Yes Assessment And Plan - Current Problems (Diagnosis) (1) Acute on chronic anemia Onset Date: 05/29/18 Current Visit: No Status: Acute Plan: Acute on chronic anemia most likely secondary to chemotherapy drugs -recent hospitalization with EGD and colonoscopy negative for acute bleeding positive for gastritis -was told to hold her leukemia medication as it could be causing her to have anemia -patient states she continues to take her leukemia medicine -heme oncology is consulted. Awaiting recommendations -transfuse 3 units at this time -will continue to monitor closely (2) CKD (chronic kidney disease) stage 4, GFR 15-29 ml/min Onset Date: 11/01/15 Current Visit: No Status: Chronic (3) Congestive heart failure Onset Date: 11/01/15 Current Visit: No Status: Chronic (4) GERD (gastroesophageal reflux disease) Onset Date: 11/01/15 Current Visit: No Status: Chronic Qualifiers: (5) Hypothyroidism Onset Date: 11/01/15 Current Visit: No Status: Chronic Qualifiers: (6) Myelogenous leukemia, chronic Onset Date: 11/01/15 Current Visit: No Status: Chronic Discharge Plan: Home Plan to discharge in: 48 Hours - Code Status/Comfort Care Code Status Assessed: Yes Critical Care: No
--- NOTE | 2018-08-25 18:10 | HP ---
Date of Admission: 08/24/2018 Reason For Admission: 1.Shortness of breath. 2.Anemia. 3.The patient with a history of CML. 4.Hypoxemia. 5.History of congestive heart failure. History Of Present Illness: This is an 88-year-old female, who came to the hospital with complaints of difficulty breathing after exertion. Her symptoms have gotten gradually worse. She was recently admitted to the hospital and given 3 units of packed red blood cells. Afterwards, she felt a little bit better. However, over the last couple of days, she has been declining. She felt much worse and decided to come into the hospital for further evaluation. In the emergency room, she was worked up w ith a chest x-ray, which revealed a right middle lobe pneumonia. She also had leukocytosis. [place] [id number] with a hemoglobin of 6.8 and platelet count of 3000. She had significant uremia a s well. The patient was admitted to the hospital for further workup. Review of Systems: A 10-point review of systems is otherwise unremarkable. Past Medical History: Congestive heart failure. Coronary artery disease. Gastroesophageal reflux d isease, varicose veins, peripheral neuropathy, CML, vitamin D deficiency, hypothyroidism, insomnia, c hronic renal disease, angiodysplasia of the small intestine. Past Surgical History: Hysterectomy, back surgery x2, cholecystectomy, bladder surgery, carotid shanel ry surgery. Allergies: CODEINE. Home Medications: Have been reviewed and are in the chart. Family History: Noncontributory. Social History: The patient does not smoke, nor does she drink or do any drugs. She lives at a [facility] community. Physical Examination: Vital Signs: Initial vitals revealed a temperature of 97.6, heart rate is 70, respirations 18, blood pressure 140/60, saturating 95% on 2 L. General: The patient lying in bed, comfortable, no distress. Awake, alert, oriented to person, plac e, and time. HEENT: Normocephalic, atraumatic. Pupils are equal and reactive to light. Extraocular muscles inta ct. There is no JVP. No bruits. Oropharynx pink, moist. No lymphadenopathy. No thyromegaly. TMs normal. Cardiovascular: Regular rate and rhythm. No murmur, rubs, or gallops. Lungs: The patient with right lower lobe crackles and rhonchi. Abdomen: Soft, nontender, nondistended. Bowel sounds positive. Extremities: No clubbing, no cyanosis, no edema. Neurologic: Cranial nerves 2-12 are intact. Motor is 5/5. Sensation is intact to light touch and p ain. Skin: The patient with increased skin turgor. No lymphadenopathy appreciated. Assessment: 1.The patient with right middle lobe pneumonia. 2.History of congestive heart failure. 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 4.Leukocytosis. 5.Chronic renal insufficiency. 6.Uremia. Plan: At this time is: 1.To continue with IV antibiotics and repeat chest x-ray. 2.Nebs as needed. 3.O2 per protocol. 4.Oncology consultation. 5.Transfuse 1 unit of packed red blood cells. 6.Will speak with the family regarding long-term prognosis. 7.Monitor volume status closely because of her history of heart failure. 8.CT scan if her symptoms do not improve. 9.GI and DVT prophylaxes. PURNIMA Voice ID: [id number]
[2018-08-25] MEDS ORDERED: TRAMADOL HCL 50 MG TAB PO SCH (21:00)
[2018-08-25] MEDS: CEFTRIAXONE/SWI 1gm 1 GM/10 ML SYR IVP SCH (22:04)
--- NOTE | 2018-08-26 01:14 | CON ---
Reason For Consultation: Anemia. History Of Present Illness: Ms. Ocampo is an 88-year-old lady, who is very well known to us at [facility]. She has been followed there initially by Dr. Wood and more recently by Dr. Jolley for a long history of chronic myeloid leukemia (CML). Briefly, she was diagnosed with CML in 1991 at [facility] [place]. She was on interferon and other medications until she was put on Gleevec in the 1999. She continued on Gleevec until 2009 when she was switched to dasati nib. Unfortunately, she developed acute GI bleeding around 2012 along with persistent pleural effusi ons and edema. The dasatinib was eventually discontinued and she was placed on nilotinib, which she was able to tolerate for a long time until 2018 when it was discontinued for possible atherosclerotic vascular disease of the carotid. She has been tried on bosutinib last year, but was unable to celia ate it and was started back on nilotinib last week. Her disease is now in accelerated phase with tamika dence of bone marrow fibrosis. She was hospitalized yesterday with complaints of worsening shortness of breath and fatigue over the past 2-3 days. When she presented to the emergency room, her hemoglobin was down to 6.8 g/dL. She w as hospitalized a week ago for similar anemia and received 3 units of packed cells; following which, her symptoms improved only to recur this past weekend. A chest x-ray done in the emergency room reve aled possible right lower lobe infiltrate, suggestive of pneumonia. She was started on antibiotics a nd has received a unit of packed red blood cells overnight. Subjective: Ms. Ocampo was comfortably resting when I saw her earlier today with her daughter a t her bedside. She has are no complaints of cough, sputum, or hemoptysis. She denies any rectal ble eding or melena in the past week. She denies any fever or chills. Objective: Vital Signs: Revealed that she has been afebrile. Temperature was 98.1 at noon today. Pulse 61. Respirations 18. Blood pressure was 141/59, saturating at 96-98% on 2 L by nasal cannula. General: Reveals a frail elderly lady with evidence of pallor. There is no cyanosis, clubbing or ic terus noted. There was no evidence of petechiae or mucosal bleeding. Lymph Node: There is no palpable lymphadenopathy in the neck, axilla, or groin. Chest: Reveals bilateral vesicular breath sounds with scattered expiratory rhonchi and rales heard. Heart: Sounds reveal normal S1, S2 with an LV S4 gallop at the base. Abdomen: Soft. Liver and spleen were not palpable. Bowel sounds were present. Neurologic: She is alert and oriented with no acute deficit. Laboratory Data: Lab data from this morning revealed a white count of 16.8 thousand. Hemoglobin pos t transfusion was 8.8 g/dL with a platelet count of 2.9 million. Chemistries reveal elevated BUN of 45, creatinine of 1.0 with a GFR of 50. Sodium and potassium were normal. Her albumin is decreased at 3.1. Procalcitonin on admission was normal. Assessment And Plan: 1.Anemia. The sudden drops in hemoglobin, especially over the past couple of weeks, were very sugge stive of GI blood loss. However, a recent GI workup was unremarkable for bleeding. Hence, other pos sibilities include progressive myelofibrosis and bone marrow failure and possibly hemolysis. I suspe ct this is due to reduced production from a fibrotic marrow given her long history of myeloproliferat andrea disorder (CML). She does have chronic kidney disease that also blunts her ability to compensate for chronic blood loss. Going forward, there are basically 2 options; one is a short trial of a 6-8- week trial of Procrit to see if we could stabilize her hemoglobin, if she becomes progressively more transfusion-dependent and fails to respond to Procrit, then unfortunately hospice and best supportive care would be the only other viable option. I discussed this with Ms. Ocampo, she is slowly be ginning to understand that treatment options are limited and her disease, i.e., CML and bone marrow c ontinues to deteriorate. I will give her the first dose of Procrit while she is here in the hospital , she will follow up with Dr. Jolley and receive her second dose next week. 2.Chronic myeloid leukemia. She now in an accelerated phase of CML due to intolerance/progression o n multiple agents. We will resume the nilotinib, which has been on hold for the past 24 hours. Thank you for asking us to see Ms. Ocampo. Please do not hesitate to call us if you have any qu estions. AP/MODL Voice ID: [id number] Report ID: [id number]
[2018-08-26] MEDS: ALBUTEROL 2.5 MG/3 ML NEB SOL NEB PRN (03:05)
[2018-08-26] MEDS: LEVOTHYROXINE SOD 0.05 MG TABLET PO SCH (06:00)
[2018-08-26 06:19] LABS: Absolute Lymphocytes (CBC) 3.6 K/uL (0.7-4.9); Absolute Monocytes 2.5 K/uL (0.1-1.3); Absolute Neutrophil 10.4 K/uL (1.8-8.0); Basophils % 1.2 % (0-1.3); Eosinophils % 0.6 % (0-4.4); Hematocrit 25.3 % (36.0-45.0); Lymphocytes % 21.5 % (15.3-44.8); MPV 8.2 fL (7.6-11.3); Monocytes % 14.9 % (3.3-12.3); RBC Red Blood Cell Count 2.82 M/uL (3.86-4.86)
[2018-08-26 07:37] LABS: Platelet Estimate INCR
[2018-08-26 07:38] LABS: Platelets, Giant MANY
[2018-08-26 07:39] LABS: Anisocytosis 2+; Blood Morphology Comment NOTED (NOT SEEN); Hypochromasia 2+; Macrocytosis 2+; Polychromasia 1+
[2018-08-26 07:40] LABS: Ovalocytes 1+; Teardrop Cell 1+
[2018-08-26] MEDS ORDERED: EPOETIN ALFA 20,000 UNIT/ML SQ ONE (09:00)
[2018-08-26] MEDS ORDERED: DIGOXIN 0.125 MG TABLET PO SCH (09:00)
[2018-08-26] MEDS: GABAPENTIN 400 MG CAP PO SCH ×3 (09:08→17:02)
[2018-08-26] MEDS: RANITIDINE 150 MG TABLET PO SCH (09:12)
[2018-08-26] MEDS: APIXABAN 2.5 MG TABLET PO SCH (09:12)
[2018-08-26] MEDS: CEFTRIAXONE/SWI 1gm 1 GM/10 ML SYR IVP SCH (09:13)
[2018-08-26] MEDS: METOPROLOL XL 25 MG TAB PO SCH (09:13)
[2018-08-26] MEDS: predniSONE 10 MG TAB PO SCH (09:13)
[2018-08-26] MEDS: AZITHROMYCIN 250 MG TAB PO SCH (09:14)
[2018-08-26 15:01] VITALS: BP 144/65; TEMP 98.5
[2018-08-26 16:19] VITALS: O2SAT 92
--- NOTE | 2018-08-26 16:21 | P.SSS ---
Patient History Date of Service: 08/26/18 Reason for admission: Hematology History of Present Illness: Ms. Ocampo is an 88-year-old lady, She has been followed there initially by Dr. Wood and more recently by Dr. Jolley for a long history of chronic myeloid leukemia (CML). Briefly, she was diagnosed with CML in 1991 at [facility] [place]. She was on interferon and other medications until she was put on Gleevec in the 1999. She continued on Gleevec until 2009 when she was switched to dasatinib. Unfortunately, she developed acute GI bleeding around 2012 along with persistent pleural effusions and edema. The dasatinib was eventually discontinued and she was placed on nilotinib, which she was able to tolerate for a long time until 2017 when it was discontinued for possible atherosclerotic vascular disease of the carotid. She has been tried on bosutinib last year, but was unable to tolerate it and was started back on nilotinib last week. Her disease is now in accelerated phase with evidence of bone marrow fibrosis. She was hospitalized yesterday with complaints of worsening shortness of breath and fatigue over the past 2-3 days. When she presented to the emergency room, her hemoglobin was down to 6.8 g/dL. She was hospitalized a week ago for similar anemia and received 3 units of packed cells; following which, her symptoms improved only to recur this past weekend. A chest x-ray done in the emergency room revealed possible right lower lobe infiltrate, suggestive of pneumonia. She was started on antibiotics and has received a unit of packed red blood cells overnight. Allergies codeine [Codeine] Adverse Reaction (Verified 02/01/12 09:06) vomiting Home Medications: Levothyroxine [Synthroid*] 50 mcg PO DAILY 09/06/13 Apixaban [Eliquis *] 2.5 mg PO BID 04/14/18 Digoxin [Lanoxin*] 125 mcg PO SEECOM 04/14/18 Metoprolol Succinate [Toprol Xl*] 25 mg PO BID 04/14/18 Tramadol HCl [Ultram] 50 mg PO BID PRN 04/14/18 Cyclosporine [Restasis] 1 each OP BID 05/28/18 Furosemide 20 mg PO DAILY PRN 08/14/18 Montelukast [Singulair*] 10 mg PO DAILY PRN 08/14/18 predniSONE [Deltasone*] 30 mg PO DAILY #30 tab 08/17/18 Albuterol Sulfate [Proair Hfa] 2 puff IH QID PRN 08/25/18 Azelastine HCl [Astepro] 2 spray OPTH BID 08/25/18 Gabapentin 300 mg PO QID 08/25/18 Nilotinib HCl [Tasigna] 300 mg PO BID 08/25/18 Sulfamethoxazole/Trimethoprim [Bactrim 400-80 mg Tablet] 1 tab PO DAILY raNITIdine HCl [Ranitidine HCl] 150 mg PO DAILY 08/25/18 - Past Medical/Surgical History Has patient received pneumonia vaccine in the past: No Diabetic: No -: Congestive Heart Failure, CAD -: GERD -: Edema -: Varicose Veins -: Peripheral Neuropathy -: CML (chronic myeloid leukemia) -: Vitamin D Deficiency -: Hypothyroidism -: Insomnia -: Renal Insufficiency Syndrome -: Anemia -: Angiodysplasia of intestine with hemorrhage -: Hysterectomy -: Back surgery x2 -: Debbie -: bladder sx. -: carotid sx - Family History Mother -: Cancer, Liver disease Father -: Cancer, Liver disease Notes: THROAT CANCER - Social History Smoking Status: Former smoker Alcohol use: No CD- Drugs: No Caffeine use: Yes Place of Residence: Home Review of Systems 10-point ROS is otherwise unremarkable Physical Examination - Vital Signs Temperature: 98.5 F Blood Pressure: 144/65 Pulse: 65 Respirations: 20 Pulse Ox (%): 91 - Physical Exam General: Alert, In no apparent distress HEENT: Atraumatic, PERRLA, Mucous membr. moist/pink, EOMI, Sclerae nonicteric Neck: Supple, 2+ carotid pulse no bruit, No LAD, Without JVD or thyroid abnormality Respiratory: Clear to auscultation bilaterally, Normal air movement Cardiovascular: Regular rate/rhythm, Normal S1 S2 Gastrointestinal: Normal bowel sounds, No tenderness Musculoskeletal: No tenderness Integumentary: No rashes Neurological: Normal gait, Normal speech, Normal strength at 5/5 x4 extr, Normal tone, Normal affect Lymphatics: No axilla or inguinal lymphadenopathy - Diagnosis (Problem(s)) (1) Acute on chronic anemia Onset Date: 05/29/18 Current Visit: No Status: Acute Plan: Acute on chronic anemia most likely secondary to chemotherapy drugs -recent hospitalization with EGD and colonoscopy negative for acute bleeding positive for gastritis -now status post 3 units of blood transfusion with hemoglobin in the stable range -Dc patient today with proper followup with hematology and primary care doctor (2) CKD (chronic kidney disease) stage 4, GFR 15-29 ml/min Onset Date: 11/01/15 Current Visit: No Status: Chronic (3) Congestive heart failure Onset Date: 11/01/15 Current Visit: No Status: Chronic (4) GERD (gastroesophageal reflux disease) Onset Date: 11/01/15 Current Visit: No Status: Chronic Qualifiers: Esophagitis presence: with esophagitis Qualified Code(s): K21.0 - Gastro- esophageal reflux disease with esophagitis (5) Hypothyroidism Onset Date: 11/01/15 Current Visit: No Status: Chronic Qualifiers: Hypothyroidism type: acquired (6) Myelogenous leukemia, chronic Onset Date: 11/01/15 Current Visit: No Status: Chronic Treatment Summary: Overall during the hospital stay patient remained stable Patient was initially admitted to the hospital for shortness of breath with presumptive diagnosis of pneumonia and anemia. Patient does have history of chronic anemia due to her leukemia medication. Patient was transfused 3 units here in the hospital packed RBCs. Patient's hemoglobin did go up from 6.8-8.8- 8.2 this morning. Patient was doing well overall. Patient had recent GI workup done which was negative for any acute abnormality. Patient was restarted back on her leukemia medication. Hematology was consulted who agreed with the above plan. Patient also had a negative pro calcitonin along with x- ray that was negative for pneumonia most likely patient's shortness of breath was related to anemia versus upper respiratory infection. No antibiotics needed at this time. Patient did use oxygen while here in the hospital. Patient has underlying diagnosis of congestive heart failure. She was saturating 81-82% upon walking. This patient was given oxygen to take home with. Was asked to follow up with primary care provider in hematology about 1- 2 days post discharge - Disposition Disposition: ROUTINE DISCHARGE Condition: GOOD Diet: Regular Activity: Ad pallavi
[2018-08-26] MEDS ORDERED: ENSURE ENLIVE 237 ML CAN PO SCH (21:00)
== END 2018-08-26 17:58 | disposition home health service (06) | DRG 841 ==
LOC: ER 16:27 → ERHOLD 20:50 → 2ND 22:26
PROVIDERS: ADMIT Family Medicine; ATTEND Family Medicine
PROC: 30233N1 Transfusion of Nonautologous Red Blood Cells into Peripheral Vein, Percutaneous Approach (ICD-10-PCS; principal; 2018-08-24)
DX: C92.10 Chronic myeloid leukemia, BCR/ABL-positive, not having achieved remission (principal); N18.4 Chronic kidney disease, stage 4 (severe); D64.81 Anemia due to antineoplastic chemotherapy; D63.0 Anemia in neoplastic disease; T45.1X5A Adverse effect of antineoplastic and immunosuppressive drugs, initial encounter; Y92.89 Other specified places as the place of occurrence of the external cause; R09.02 Hypoxemia; I50.9 Heart failure, unspecified; I25.10 Atherosclerotic heart disease of native coronary artery without angina pectoris; Z87.891 Personal history of nicotine dependence; K21.9 Gastro-esophageal reflux disease without esophagitis; G62.9 Polyneuropathy, unspecified; E55.9 Vitamin D deficiency, unspecified; E03.9 Hypothyroidism, unspecified; G47.00 Insomnia, unspecified
CPT/HCPCS: 36415; 36430; 71045; 80048; 80053; 80061; 80076; 80162; 81003; 82668; 83615; 83690; 83735; 83880; 84100; 84145; 84484; 85025; 85044; 85610; 86850; 86900; 86901; 87040; 87086; 87088; 93005; 94760; 99285; C9113; J0456; J0696; J0885; J1650; J1940; J7030; J7512; P9016

== ENCOUNTER 2018-09-03 13:35 | Observation (INO) | payer OTHER ==
--- OUTSIDE RECORDS SUMMARY | 2018-09-03 13:37 | XMS REPORT | Clinical Summary ---
:1930 Author Organization [facility] Address [address] [place] [address] Care Team Providers Name Role Phone Hernan [...] INFLUENZA VACCINE 04/27/2018 Implants Implanted Type Area Test Facility Engineer Device Shelf Model / Identifier Expiration Serial / Lot Date Lead Attain Performa 78cm [id number] - [id number] Cardiovascular N/A: [employer] :CARD 10/03/2018 [id number] / Implanted: Qty: 1 on 01/07/2017 by Satya Perales MD Chest RHY: DISEASE [id number] / MGT Ld Endocardial Df4 Act 55 [id number] - [id number] Defibrillators N/A: [employer]:CARD 10/10/2018 [id number] / Implanted: Qty: 1 on 01/07/2017 by Satya Perales MD Chest RHY: DISEASE [id number] / MGT Dev Amplia Quad Machine Operator Hop Picker-D Surescn [id number] - [id number] Defibrillators N/A: [employer]:CARD 04/24/2018 [id number] / Implanted: Qty: 1 on 01/07/2017 by Satya Perales MD Chest RHY:PACING SYS [id number] / Grft Hemshld Dbl Silvio 0.3x3.0in [id number] - [id number] Graft/Patch Right: GETINGE 04/26/2021 [id number] / Implanted: Qty: 1 on 10/01/2016 by Miguelangel Stack MD Neck IND:MAQUET:CV [id number] / [id number] Lead Pacemkr Rosa Chew 45x1 [id number] - [id number] Pacemaker Lead N/A: [employer]:CARD 09/23/2018 [id number] / Implanted: Qty: 1 on 01/07/2017 by Satya Perales MD Chest RHY: DISEASE [id number] / MGT Results Not on fileafter 09/02/2017 Insurance Payer Benefit Plan / Group Subscriber ID Type Phone Address CARE IMPROVEMENT MEDICARE MGD CARE IMPROVEMENT PLUS xxxxxxxxx CARE DR dinora Hazel ([place]) [address] [place] [address] Advance Directives For more information, please contact:[address] [phone] Code Status Date Activated Date Inactivated Comments Full Code 01/07/2017 1:15 PM 01/08/2017 4:34 PM This code status was determined by: Patient Full Code 10/01/2016 11:49 AM 10/03/2016 8:34 PM This code status was determined by: Patient Full Code 09/30/2016 6:24 PM 10/01/2016 11:49 AM This code status was determined by: Patient
--- OUTSIDE RECORDS SUMMARY | 2018-09-03 13:38 | XMS REPORT ---
:1930 [facility] [address] [place] [id number] Care Team Providers Name Role Phone CHUCK [...] Value Reference Range Comments MAGNESIUM (BEAKER) (test ckpy=618) 2.0 mg/dL 1.6-2.6 Specimen slightly hemolyzed BASIC METABOLIC [id number] 05:25:00 Test Item Value Reference Range Comments SODIUM (BEAKER) (test 138 meq/L 136-145 gfau=033) POTASSIUM (BEAKER) (test 4.6 meq/L 3.5-5.1 Specimen slightly ngsa=355) hemolyzed CHLORIDE (BEAKER) (test 108 meq/L 98-107 kroz=030) CO2 (BEAKER) (test 23 meq/L 22-29 zbkk=524) BLOOD UREA NITROGEN 14 mg/dL 7-21 (BEAKER) (test cnph=243) CREATININE (BEAKER) (test 0.87 mg/dL 0.57-1.25 Specimen slightly beaa=883) hemolyzed GLUCOSE RANDOM (BEAKER) 109 mg/dL 70-105 (test odrn=163) CALCIUM (BEAKER) (test 8.9 mg/dL 8.4-10.2 zxwx=680) EGFR (BEAKER) (test 62 mL/min/1.73 sq m ESTIMATED GFR IS NOT vkdd=5975) ACCURATE CREATININE CLEARANCE IN PREDICTING GLOMERULAR FILTRATION RATE. ESTIMATED GFR IS NOT APPLICABLE FOR DIALYSIS PATIENTS. CBC (HEMOGRAM ONLY)2017-01-08 05:22:00 Test Item Value Reference Range Comments WHITE BLOOD CELL COUNT (BEAKER) (test qeqo=301) 11.1 K/ L 4.0-10.0 RED BLOOD CELL COUNT (BEAKER) (test pfzo=098) 3.62 M/ L 4.00-5.00 HEMOGLOBIN (BEAKER) (test hvjp=316) 12.2 GM/DL 12.0-15.0 HEMATOCRIT (BEAKER) (test opca=220) 36.3 % 36.0-45.0 MEAN CORPUSCULAR VOLUME (BEAKER) (test clzu=835) 101.0 fL 82.0-99.0 MEAN CORPUSCULAR HEMOGLOBIN (BEAKER) (test 33.9 pg 27.0-33.0 fisr=192) MEAN CORPUSCULAR HEMOGLOBIN CONC (BEAKER) (test 33.7 GM/DL 32.0-36.0 dgky=585) RED CELL DISTRIBUTION WIDTH (BEAKER) (test 15.2 % 10.3-14.2 etye=810) PLATELET COUNT (BEAKER) (test ouvr=159) 201 K/CU MM 150-430 MEAN PLATELET VOLUME (BEAKER) (test rpor=366) 7.6 fL 6.5-10.5 NUCLEATED RED BLOOD CELLS (BEAKER) (test 0 /100 WBC 0-0 iqjw=861) 0.00CBC (HEMOGRAM ONLY)2017-01-07 05:01:00 Test Item Value Reference Range Comments WHITE BLOOD CELL COUNT (BEAKER) (test pmmb=070) 5.8 K/ L 4.0-10.0 RED BLOOD CELL COUNT (BEAKER) (test fdyp=193) 3.68 M/ L 4.00-5.00 HEMOGLOBIN (BEAKER) (test ajjc=219) 12.1 GM/DL 12.0-15.0 HEMATOCRIT (BEAKER) (test rfkz=027) 36.9 % 36.0-45.0 MEAN CORPUSCULAR VOLUME (BEAKER) (test opaw=666) 100.0 fL 82.0-99.0 MEAN CORPUSCULAR HEMOGLOBIN (BEAKER) (test 33.0 pg 27.0-33.0 jdrc=899) MEAN CORPUSCULAR HEMOGLOBIN CONC (BEAKER) (test 32.8 GM/DL 32.0-36.0 rogs=355) RED CELL DISTRIBUTION WIDTH (BEAKER) (test 13.5 % 10.3-14.2 qdfp=531) PLATELET COUNT (BEAKER) (test cpvk=115) 204 K/CU MM 150-430 MEAN PLATELET VOLUME (BEAKER) (test jagz=076) 7.3 fL 6.5-10.5 NUCLEATED RED BLOOD CELLS (BEAKER) (test 0 /100 WBC 0-0 cemx=244) [id number] 02:15:00 Test Item Value Reference Range Comments MAGNESIUM (BEAKER) (test wzeu=400) 2.2 mg/dL 1.6-2.6 BASIC METABOLIC [id number] 02:15:00 Test Item Value Reference Range Comments SODIUM (BEAKER) (test 142 meq/L 136-145 atyw=521) POTASSIUM (BEAKER) (test 4.0 meq/L 3.5-5.1 nxba=262) CHLORIDE (BEAKER) (test 110 meq/L 98-107 bhwg=988) CO2 (BEAKER) (test 23 meq/L 22-29 woun=645) BLOOD UREA NITROGEN 21 mg/dL 7-21 (BEAKER) (test ahtg=364) CREATININE (BEAKER) (test 1.02 mg/dL 0.57-1.25 zhtu=332) GLUCOSE RANDOM (BEAKER) 102 mg/dL 70-105 (test ijxd=343) CALCIUM (BEAKER) (test 8.9 mg/dL 8.4-10.2 cvoc=087) EGFR (BEAKER) (test 51 mL/min/1.73 sq m ESTIMATED GFR IS NOT cchd=9374) ACCURATE CREATININE CLEARANCE IN PREDICTING GLOMERULAR FILTRATION RATE. ESTIMATED GFR IS NOT APPLICABLE FOR DIALYSIS PATIENTS. [id number] 02:02:00 Test Item Value Reference Range Comments PARTIAL THROMBOPLASTIN TIME (BEAKER) (test 67.1 seconds 22.5-36.0 jzxv=550) CBC W/PLT COUNT & AUTO [id number] 01:59:00 Test Item Value Reference Range Comments WHITE BLOOD CELL COUNT (BEAKER) (test pqfa=552) 5.2 K/ L 4.0-10.0 RED BLOOD CELL COUNT (BEAKER) (test zuxh=434) 3.33 M/ L 4.00-5.00 HEMOGLOBIN (BEAKER) (test bgmf=700) 11.4 GM/DL 12.0-15.0 HEMATOCRIT (BEAKER) (test wgox=731) 33.5 % 36.0-45.0 MEAN CORPUSCULAR VOLUME (BEAKER) (test zgnk=582) 101.0 fL 82.0-99.0 MEAN CORPUSCULAR HEMOGLOBIN (BEAKER) (test 34.4 pg 27.0-33.0 otrv=421) MEAN CORPUSCULAR HEMOGLOBIN CONC (BEAKER) (test 34.1 GM/DL 32.0-36.0 coxv=597) RED CELL DISTRIBUTION WIDTH (BEAKER) (test 13.5 % 10.3-14.2 fcyy=834) PLATELET COUNT (BEAKER) (test ewsq=105) 184 K/CU MM 150-430 MEAN PLATELET VOLUME (BEAKER) (test kfey=403) 7.0 fL 6.5-10.5 NUCLEATED RED BLOOD CELLS (BEAKER) (test 0 /100 WBC 0-0 zhls=732) NEUTROPHILS RELATIVE PERCENT (BEAKER) (test 49 % zdyl=154) LYMPHOCYTES RELATIVE PERCENT (BEAKER) (test 34 % ltyx=041) MONOCYTES RELATIVE PERCENT (BEAKER) (test 10 % ilis=159) EOSINOPHILS RELATIVE PERCENT (BEAKER) (test 7 % eium=972) BASOPHILS RELATIVE PERCENT (BEAKER) (test 0 % mhie=090) NEUTROPHILS ABSOLUTE COUNT (BEAKER) (test 2.52 K/ L 1.80-8.00 gawj=015) LYMPHOCYTES ABSOLUTE COUNT (BEAKER) (test 1.75 K/ L 1.48-4.50 yedg=024) MONOCYTES ABSOLUTE COUNT (BEAKER) (test 0.54 K/ L 0.00-1.30 oezr=882) EOSINOPHILS ABSOLUTE COUNT (BEAKER) (test 0.34 K/ L 0.00-0.50 vngt=723) BASOPHILS ABSOLUTE COUNT (BEAKER) (test 0.02 K/ L 0.00-0.20 wnfo=399) 0.00DIGOXIN [id number] 18:00:00 Test Item Value Reference Range Comments DIGOXIN LEVEL (BEAKER) (test aqjp=787) 0.4 ng/mL 0.8-2.0 TSH/FREE T4 IF [id number] 18:00:00 Test Item Value Reference Range Comments THYROID STIMULATING HORMONE (BEAKER) (test 1.47 uIU/mL 0.35-4.94 nhwy=271) [id number] 17:35:00 Test Item Value Reference Range Comments MAGNESIUM (BEAKER) (test qvhc=859) 2.4 mg/dL 1.6-2.6 Fasting lipid panelBASIC METABOLIC [id number] 17:35:00 Test Item Value Reference Range Comments SODIUM (BEAKER) (test 139 meq/L 136-145 gtah=978) POTASSIUM (BEAKER) (test 3.9 meq/L 3.5-5.1 habt=457) CHLORIDE (BEAKER) (test 105 meq/L 98-107 utog=751) CO2 (BEAKER) (test 27 meq/L 22-29 yavr=140) BLOOD UREA NITROGEN 25 mg/dL 7-21 (BEAKER) (test zsct=646) CREATININE (BEAKER) (test 1.24 mg/dL 0.57-1.25 nieh=663) GLUCOSE RANDOM (BEAKER) 91 mg/dL 70-105 (test dlon=812) CALCIUM (BEAKER) (test 9.4 mg/dL 8.4-10.2 ifjl=660) EGFR (BEAKER) (test 41 mL/min/1.73 sq m ESTIMATED GFR IS NOT qwdw=3156) ACCURATE CREATININE CLEARANCE IN PREDICTING GLOMERULAR FILTRATION RATE. ESTIMATED GFR IS NOT APPLICABLE FOR DIALYSIS PATIENTS. Fasting lipid panelLIPID [id number] 17:35:00 Test Item Value Reference Range Comments TRIGLYCERIDES (BEAKER) (test ktri=401) 81 mg/dL CHOLESTEROL (BEAKER) (test jdbc=483) 224 mg/dL HDL CHOLESTEROL (BEAKER) (test tteg=097) 96 mg/dL LDL CHOLESTEROL CALCULATED (BEAKER) (test 112 mg/dL lyxh=237) Triglyceride Reference Range: Low Risk <150 Borderline 150- 199 High Risk 200-499 Very High Risk >=500Cholesterol Reference Range: Low Risk <200 Borderline 200-239 High Risk > 240HDL Cholesterol Reference Range: Low Risk >=60 High Risk <40LDL Cholesterol Reference Range: Optimal <100 Near Optimal 100-129 Borderline 130-159 High 160-189 Very High >=190 Fasting lipid panelHEPATIC FUNCTION [id number] 17:35:00 Test Item Value Reference Range Comments TOTAL PROTEIN (BEAKER) (test svqh=723) 7.7 gm/dL 6.0-8.3 ALBUMIN (BEAKER) (test zxcn=4410) 3.9 g/dL 3.5-5.0 BILIRUBIN TOTAL (BEAKER) (test qwcy=205) 1.1 mg/dL 0.2-1.2 BILIRUBIN DIRECT (BEAKER) (test oyli=577) 0.5 mg/dL 0.1-0.5 ALKALINE PHOSPHATASE (BEAKER) (test dhxs=797) 120 U/L 40-150 AST (SGOT) (BEAKER) (test wqik=754) 19 U/L 5-34 ALT (SGPT) (BEAKER) (test lqwy=342) 19 U/L 6-55 Fasting lipid [id number] 17:24:00 Test Item Value Reference Range Comments PARTIAL THROMBOPLASTIN TIME (BEAKER) (test 37.0 seconds 22.5-36.0 mufi=329) Prior to initiating heparinPROTHROMBIN TIME/[id number] 17:23:00 Test Item Value Reference Range Comments PROTIME (BEAKER) (test jvoi=900) 14.3 seconds 11.7-14.7 INR (BEAKER) (test wqll=014) 1.1 <=5.9 RECOMMENDED COUMADIN/WARFARIN INR THERAPY RANGESSTANDARD DOSE: 2.0 - 3.0 Includes: PROPHYLAXIS forvenous thrombosis, systemic embolization; TREATMENT for venous thrombosis and/or pulmonary embolus.HIGH RISK: Target INR is 2.5-3.5 for patients with mechanical heart valves.Prior to initiating [id number] 17:23:00 Test Item Value Reference Range Comments PARTIAL THROMBOPLASTIN TIME (BEAKER) (test 36.6 seconds 22.5-36.0 dene=857) Prior to initiating heparinCBC W/PLT COUNT & AUTO [id number] 17: 20:00 Test Item Value Reference Range Comments WHITE BLOOD CELL COUNT (BEAKER) (test dugc=672) 6.1 K/ L 4.0-10.0 RED BLOOD CELL COUNT (BEAKER) (test dmwt=267) 3.72 M/ L 4.00-5.00 HEMOGLOBIN (BEAKER) (test sidv=149) 12.4 GM/DL 12.0-15.0 HEMATOCRIT (BEAKER) (test glxq=454) 37.4 % 36.0-45.0 MEAN CORPUSCULAR VOLUME (BEAKER) (test ygba=511) 101.0 fL 82.0-99.0 MEAN CORPUSCULAR HEMOGLOBIN (BEAKER) (test 33.5 pg 27.0-33.0 kilo=005) MEAN CORPUSCULAR HEMOGLOBIN CONC (BEAKER) (test 33.2 GM/DL 32.0-36.0 foqe=560) RED CELL DISTRIBUTION WIDTH (BEAKER) (test 13.5 % 10.3-14.2 vsvy=004) PLATELET COUNT (BEAKER) (test aivm=404) 219 K/CU MM 150-430 MEAN PLATELET VOLUME (BEAKER) (test fojj=587) 7.0 fL 6.5-10.5 NUCLEATED RED BLOOD CELLS (BEAKER) (test 0 /100 WBC 0-0 pxed=084) NEUTROPHILS RELATIVE PERCENT (BEAKER) (test 51 % ahez=036) LYMPHOCYTES RELATIVE PERCENT (BEAKER) (test 33 % qjlt=013) MONOCYTES RELATIVE PERCENT (BEAKER) (test 10 % rgtz=619) EOSINOPHILS RELATIVE PERCENT (BEAKER) (test 5 % izod=955) BASOPHILS RELATIVE PERCENT (BEAKER) (test 1 % zhpq=199) NEUTROPHILS ABSOLUTE COUNT (BEAKER) (test 3.09 K/ L 1.80-8.00 kjwo=715) LYMPHOCYTES ABSOLUTE COUNT (BEAKER) (test 1.99 K/ L 1.48-4.50 xhma=494) MONOCYTES ABSOLUTE COUNT (BEAKER) (test 0.62 K/ L 0.00-1.30 dasv=648) EOSINOPHILS ABSOLUTE COUNT (BEAKER) (test 0.31 K/ L 0.00-0.50 pgdw=181) BASOPHILS ABSOLUTE COUNT (BEAKER) (test 0.08 K/ L 0.00-0.20 alcm=186) PLATELET [id number] 17:16:00 Test Item Value Reference Range Comments PLATELET COUNT (BEAKER) (test ouew=219) 219 K/CU MM 150-430 BASIC METABOLIC [id number] 04:55:00 Test Item Value Reference Range Comments SODIUM (BEAKER) (test 141 meq/L 136-145 hcqz=402) POTASSIUM (BEAKER) (test 3.3 meq/L 3.5-5.1 ttjs=543) CHLORIDE (BEAKER) (test 104 meq/L 98-107 dgpd=373) CO2 (BEAKER) (test 28 meq/L 22-29 pweh=416) BLOOD UREA NITROGEN 14 mg/dL 7-21 (BEAKER) (test ggsz=881) CREATININE (BEAKER) (test 0.80 mg/dL 0.57-1.25 nesp=892) GLUCOSE RANDOM (BEAKER) 97 mg/dL 70-105 (test xjje=614) CALCIUM (BEAKER) (test 8.9 mg/dL 8.4-10.2 qiry=092) EGFR (BEAKER) (test 68 mL/min/1.73 sq m ESTIMATED GFR IS NOT feir=9481) ACCURATE CREATININE CLEARANCE IN PREDICTING GLOMERULAR FILTRATION RATE. ESTIMATED GFR IS NOT APPLICABLE FOR DIALYSIS PATIENTS. CBC (HEMOGRAM ONLY)2016-10-03 04:47:00 Test Item Value Reference Range Comments WHITE BLOOD CELL COUNT (BEAKER) (test hoqq=572) 7.8 K/ L 4.0-10.0 RED BLOOD CELL COUNT (BEAKER) (test goet=727) 3.12 M/ L 4.00-5.00 HEMOGLOBIN (BEAKER) (test aape=072) 11.2 GM/DL 12.0-15.0 HEMATOCRIT (BEAKER) (test atvc=470) 32.5 % 36.0-45.0 MEAN CORPUSCULAR VOLUME (BEAKER) (test jezk=511) 104.0 fL 82.0-99.0 MEAN CORPUSCULAR HEMOGLOBIN (BEAKER) (test 35.8 pg 27.0-33.0 cyxr=601) MEAN CORPUSCULAR HEMOGLOBIN CONC (BEAKER) (test 34.4 GM/DL 32.0-36.0 snwy=680) RED CELL DISTRIBUTION WIDTH (BEAKER) (test 12.8 % 10.3-14.2 josc=361) PLATELET COUNT (BEAKER) (test mfgc=016) 190 K/CU MM 150-430 MEAN PLATELET VOLUME (BEAKER) (test bqcx=776) 7.4 fL 6.5-10.5 NUCLEATED RED BLOOD CELLS (BEAKER) (test 0 /100 WBC 0-0 kybf=718) [id number] 04:41:00 Test Item Value Reference Range Comments PROTIME (BEAKER) (test dwuw=574) 13.1 seconds 11.7-14.7 INR (BEAKER) (test pbzm=809) 1.0 <=5.9 PARTIAL THROMBOPLASTIN TIME (BEAKER) (test 28.1 seconds 22.5-36.0 jadt=628) RECOMMENDED COUMADIN/WARFARIN INR THERAPY RANGESSTANDARD DOSE: 2.0 - 3.0 Includes: PROPHYLAXIS forvenous thrombosis, systemic embolization; TREATMENT for venous thrombosis and/or pulmonary embolus.HIGH RISK: Target INR is 2.5-3.5 for patients with mechanical heart valves.CREATINE KINASE (CK), TOTAL AND [id number] 04:53:00 Test Item Value Reference Range Comments CREATINE KINASE TOTAL (BEAKER) (test fvfq=703) 36 U/L 29-200 CREATINE KINASE-MB (BEAKER) (test cegy=491) 1.6 ng/mL 0.0-6.6 CREATINE KINASE-MB INDEX (BEAKER) (test ykbx=748) 4.4 % Effective 06/14/2014: CK-MB Reference Range ChangeNew: 0.0-6.6 Previous: 0.0- 4.9CK-MB Reference Range:<6.7 Normal6.7-10.0 Borderline>10.0 AbnormalTROPONIN [id number] 04:53:00 Test Item Value Reference Range Comments TROPONIN I (BEAKER) (test xblm=541) 0.03 ng/mL 0.00-0.03 Effective 06/14/2014: Reference Range [...] acute neurological disease, and persistent tachyarrhythmia.BASIC METABOLIC [id number] 04:46:00 Test Item Value Reference Range Comments SODIUM (BEAKER) (test 139 meq/L 136-145 gbmw=585) POTASSIUM (BEAKER) (test 3.7 meq/L 3.5-5.1 epkm=416) CHLORIDE (BEAKER) (test 104 meq/L 98-107 ljpr=693) CO2 (BEAKER) (test 27 meq/L 22-29 glmv=071) BLOOD UREA NITROGEN 14 mg/dL 7-21 (BEAKER) (test inoc=582) CREATININE (BEAKER) (test 0.82 mg/dL 0.57-1.25 dsig=969) GLUCOSE RANDOM (BEAKER) 102 mg/dL 70-105 (test qlfb=335) CALCIUM (BEAKER) (test 9.1 mg/dL 8.4-10.2 uzqb=006) EGFR (BEAKER) (test 66 mL/min/1.73 sq m ESTIMATED GFR IS NOT dqde=2084) ACCURATE CREATININE CLEARANCE IN PREDICTING GLOMERULAR FILTRATION RATE. ESTIMATED GFR IS NOT APPLICABLE FOR DIALYSIS PATIENTS. [id number] 04:41:00 Test Item Value Reference Range Comments PROTIME (BEAKER) (test wjjv=414) 13.5 seconds 11.7-14.7 INR (BEAKER) (test pmgt=645) 1.0 <=5.9 PARTIAL THROMBOPLASTIN TIME (BEAKER) (test 33.1 seconds 22.5-36.0 pzby=607) RECOMMENDED COUMADIN/WARFARIN INR THERAPY RANGESSTANDARD DOSE: 2.0 - 3.0 Includes: PROPHYLAXIS forvenous thrombosis, systemic embolization; TREATMENT for venous thrombosis and/or pulmonary embolus.HIGH RISK: Target INR is 2.5-3.5 for patients with mechanical heart valves.CBC (HEMOGRAM ONLY)2016-10-02 04:33:00 Test Item Value Reference Range Comments WHITE BLOOD CELL COUNT (BEAKER) (test mihu=400) 9.4 K/ L 4.0-10.0 RED BLOOD CELL COUNT (BEAKER) (test whyn=915) 3.07 M/ L 4.00-5.00 HEMOGLOBIN (BEAKER) (test juec=140) 11.0 GM/DL 12.0-15.0 HEMATOCRIT (BEAKER) (test kbyx=880) 31.9 % 36.0-45.0 MEAN CORPUSCULAR VOLUME (BEAKER) (test ndln=982) 104.0 fL 82.0-99.0 MEAN CORPUSCULAR HEMOGLOBIN (BEAKER) (test 36.0 pg 27.0-33.0 xnvo=832) MEAN CORPUSCULAR HEMOGLOBIN CONC (BEAKER) (test 34.6 GM/DL 32.0-36.0 ojwl=350) RED CELL DISTRIBUTION WIDTH (BEAKER) (test 12.7 % 10.3-14.2 bloi=020) PLATELET COUNT (BEAKER) (test ypav=429) 205 K/CU MM 150-430 MEAN PLATELET VOLUME (BEAKER) (test jgdt=425) 7.3 fL 6.5-10.5 NUCLEATED RED BLOOD CELLS (BEAKER) (test 0 /100 WBC 0-0 wevd=370) 0.00TSH/FREE T4 IF [id number] 19:30:00 Test Item Value Reference Range Comments THYROID STIMULATING HORMONE (BEAKER) (test 0.43 uIU/mL 0.35-4.94 noee=911) CREATINE KINASE (CK), TOTAL AND [id number] 19:14:00 Test Item Value Reference Range Comments CREATINE KINASE TOTAL (BEAKER) (test narf=806) 53 U/L 29-200 CREATINE KINASE-MB (BEAKER) (test lnyz=696) 2.6 ng/mL 0.0-6.6 CREATINE KINASE-MB INDEX (BEAKER) (test ulwk=373) 4.9 % Effective 06/14/2014: CK-MB Reference Range ChangeNew: 0.0-6.6 Previous: 0.0- 4.9CK-MB Reference Range:<6.7 Normal6.7-10.0 Borderline>10.0 AbnormalTROPONIN [id number] 19:14:00 Test Item Value Reference Range Comments TROPONIN I (BEAKER) (test epjx=244) 0.01 ng/mL 0.00-0.03 Effective 06/14/2014: Reference Range [...] renalfailure, acidosis, acute neurological disease, and persistent tachyarrhythmia.[id number] 15:20: 00 Test Item Value Reference Range Comments MAGNESIUM (BEAKER) (test gmlf=530) 1.9 mg/dL 1.6-2.6 BASIC METABOLIC [id number] 15:20:00 Test Item Value Reference Range Comments SODIUM (BEAKER) (test 141 meq/L 136-145 zshn=212) POTASSIUM (BEAKER) (test 3.9 meq/L 3.5-5.1 uqun=050) CHLORIDE (BEAKER) (test 108 meq/L 98-107 pxkg=716) CO2 (BEAKER) (test 25 meq/L 22-29 hvro=797) BLOOD UREA NITROGEN 14 mg/dL 7-21 (BEAKER) (test zlbj=061) CREATININE (BEAKER) (test 0.84 mg/dL 0.57-1.25 rktv=036) GLUCOSE RANDOM (BEAKER) 130 mg/dL 70-105 (test xgne=999) CALCIUM (BEAKER) (test 8.8 mg/dL 8.4-10.2 okqe=147) EGFR (BEAKER) (test 64 mL/min/1.73 sq m ESTIMATED GFR IS NOT qaap=2620) ACCURATE CREATININE CLEARANCE IN PREDICTING GLOMERULAR FILTRATION RATE. ESTIMATED GFR IS NOT APPLICABLE FOR DIALYSIS PATIENTS. CBC (HEMOGRAM ONLY)2016-10-01 14:52:00 Test Item Value Reference Range Comments WHITE BLOOD CELL COUNT (BEAKER) (test lqjc=813) 10.1 K/ L 4.0-10.0 RED BLOOD CELL COUNT (BEAKER) (test mkse=905) 3.40 M/ L 4.00-5.00 HEMOGLOBIN (BEAKER) (test jtui=749) 11.9 GM/DL 12.0-15.0 HEMATOCRIT (BEAKER) (test snsv=684) 34.6 % 36.0-45.0 MEAN CORPUSCULAR VOLUME (BEAKER) (test xrqb=057) 102.0 fL 82.0-99.0 MEAN CORPUSCULAR HEMOGLOBIN (BEAKER) (test 35.1 pg 27.0-33.0 pfej=596) MEAN CORPUSCULAR HEMOGLOBIN CONC (BEAKER) (test 34.5 GM/DL 32.0-36.0 dxil=323) RED CELL DISTRIBUTION WIDTH (BEAKER) (test 13.5 % 10.3-14.2 qajh=588) PLATELET COUNT (BEAKER) (test gvql=336) 204 K/CU MM 150-430 MEAN PLATELET VOLUME (BEAKER) (test rwff=228) 7.4 fL 6.5-10.5 NUCLEATED RED BLOOD CELLS (BEAKER) (test 0 /100 WBC 0-0 ldcy=845) 0.00BASIC METABOLIC [id number] 11:00:00 Test Item Value Reference Range Comments SODIUM (BEAKER) (test 142 meq/L 136-145 pxmq=756) POTASSIUM (BEAKER) (test 4.5 meq/L 3.5-5.1 skfn=749) CHLORIDE (BEAKER) (test 103 meq/L 98-107 axsf=708) CO2 (BEAKER) (test 28 meq/L 22-29 piyj=341) BLOOD UREA NITROGEN 28 mg/dL 7-21 (BEAKER) (test eyow=851) CREATININE (BEAKER) (test 1.04 mg/dL 0.57-1.25 ryfr=849) GLUCOSE RANDOM (BEAKER) 98 mg/dL 70-105 (test cdbu=438) CALCIUM (BEAKER) (test 9.8 mg/dL 8.4-10.2 izsp=747) EGFR (BEAKER) (test 50 mL/min/1.73 sq m ESTIMATED GFR IS NOT rfls=2934) ACCURATE CREATININE CLEARANCE IN PREDICTING GLOMERULAR FILTRATION RATE. ESTIMATED GFR IS NOT APPLICABLE FOR DIALYSIS PATIENTS. CBC W/PLT COUNT & AUTO [id number] 10:59:00 Test Item Value Reference Range Comments WHITE BLOOD CELL COUNT (BEAKER) (test nrpy=271) 7.0 K/ L 4.0-10.0 RED BLOOD CELL COUNT (BEAKER) (test uhgf=934) 3.77 M/ L 4.00-5.00 HEMOGLOBIN (BEAKER) (test crug=945) 13.2 GM/DL 12.0-15.0 HEMATOCRIT (BEAKER) (test qkvk=480) 38.5 % 36.0-45.0 MEAN CORPUSCULAR VOLUME (BEAKER) (test ergr=331) 102.0 fL 82.0-99.0 MEAN CORPUSCULAR HEMOGLOBIN (BEAKER) (test 34.9 pg 27.0-33.0 ydef=241) MEAN CORPUSCULAR HEMOGLOBIN CONC (BEAKER) (test 34.2 GM/DL 32.0-36.0 psqx=555) RED CELL DISTRIBUTION WIDTH (BEAKER) (test 13.6 % 10.3-14.2 basz=784) PLATELET COUNT (BEAKER) (test naho=836) 233 K/CU MM 150-430 MEAN PLATELET VOLUME (BEAKER) (test xkfc=049) 7.3 fL 6.5-10.5 NUCLEATED RED BLOOD CELLS (BEAKER) (test 0 /100 WBC 0-0 fpda=497) NEUTROPHILS RELATIVE PERCENT (BEAKER) (test 60 % mkra=663) LYMPHOCYTES RELATIVE PERCENT (BEAKER) (test 27 % ijgm=202) MONOCYTES RELATIVE PERCENT (BEAKER) (test 9 % oigh=089) EOSINOPHILS RELATIVE PERCENT (BEAKER) (test 3 % pnql=417) BASOPHILS RELATIVE PERCENT (BEAKER) (test 1 % fkbm=902) NEUTROPHILS ABSOLUTE COUNT (BEAKER) (test 4.20 K/ L 1.80-8.00 myhc=736) LYMPHOCYTES ABSOLUTE COUNT (BEAKER) (test 1.92 K/ L 1.48-4.50 giqd=446) MONOCYTES ABSOLUTE COUNT (BEAKER) (test 0.60 K/ L 0.00-1.30 otmy=982) EOSINOPHILS ABSOLUTE COUNT (BEAKER) (test 0.23 K/ L 0.00-0.50 emnm=647) BASOPHILS ABSOLUTE COUNT (BEAKER) (test 0.07 K/ L 0.00-0.20 pfgu=593) 0.00PT/[id number] 10:58:00 Test Item Value Reference Range Comments PROTIME (BEAKER) (test nhuu=793) 12.7 seconds 11.7-14.7 INR (BEAKER) (test nydi=019) 1.0 <=5.9 PARTIAL THROMBOPLASTIN TIME (BEAKER) (test 29.7 seconds 22.5-36.0 gruo=812) RECOMMENDED COUMADIN/WARFARIN INR THERAPY RANGESSTANDARD DOSE: 2.0 - 3.0 Includes: PROPHYLAXIS forvenous thrombosis, systemic embolization; TREATMENT for venous thrombosis and/or pulmonary embolus.HIGH RISK: Target INR is 2.5-3.5 for patients with mechanical heart valves.
[2018-09-03 16:03] LABS: Potassium 4.6 mmol/L (3.5-5.1)
--- NOTE | 2018-09-03 16:03 | RAD REPORT ---
EXAM DESCRIPTION: RAD - Chest Single View - 09/03/2018 3:45 pm CLINICAL HISTORY: DYSPNEA Chest pain. COMPARISON: Chest Single View dated 08/24/2018; Chest Single View dated 08/13/2018; Chest Single View dated 06/02/2018; Chest Single View dated 05/12/2018 FINDINGS: Portable technique limits examination quality. Interstitial pulmonary edema is again noted, with elevated left hemidiaphragm. Opacification of the m edial right lung base appears unchanged. The heart is mildly prominent size with multilead pacer/defi brillator device. No displaced fractures. IMPRESSION: Mild CHF, unchanged.
--- NOTE | 2018-09-03 16:09 | EDPHYS ---
Physician Documentation [facility] Name: Nikky Ocampo Age: 88 yrs Sex: Female : 1930 Arrival Date: 09/03/2018 Time: 13:36 Bed 28 Private MD: Hernan Richmond E ED Physician Hernan Diggs HPI: 09/03 16:28 This 88 yrs old Female presents to ER via Ambulatory with complaints of kb TRANSFUSION. 16:28 Pt had routine blood work done this morning and was called to come in for a blood kb transfusion. HGB 6.8. Severity of symptoms: At their worst the symptoms were mild in the emergency department the symptoms are unchanged. The patient has experienced similar episodes in the past, chronically. The patient has been recently seen by a physician:. Historical: - Allergies: 14:06 Codeine; hj - Home Meds: 14:06 Allergy Medicine Oral [Active]; aspercreme lotion 10% PRN [Active]; Bactrim DS 800-160 hj mg Oral tab 1 tab q12 hours x 10 days [Active]; Bosulif 100 mg Oral tab 3 tabs once daily [Active]; cranberry Oral [Active]; dasatinib Oral [Active]; digoxin 125 mcg Oral tab 1 tab Every other day [Active]; Econazole Nitrate Cream [Active]; Eliquis 5 mg Oral tab 1 tab 2 times per day [Active]; Estrace CREAM Oral [Active]; fluconazole Oral [Active]; fluticasone nasal [Active]; furosemide 20 mg Oral tab 1 tab as needed [Active]; gabapentin 400 mg Oral cap 2 cap 4x per day [Active]; levothyroxine 50 mcg tab 1 tab once daily [Active]; metoprolol succinate 25 mg Oral Tb24 twice a day [Active]; Prednisone Oral [Active]; preser vision [Active]; ranitidine HCl 150 mg Oral cap once daily [Active]; Restasis ophthalmic [Active]; spironolactone 50 mg Oral tab 1 tab once daily [Active]; Spironolactone Oral [Active]; Tasigna Oral 2 caps every 12 hours [Active]; tramadol 50 mg Oral tab 1 tab once a day [Active]; Hydroxyurea Oral [Active]; - PMHx: 14:06 CHF; Chronic leukemia; colon cancer; Hypertension; Pacemaker; hj - PSHx: 14:06 Carotid surgery; hj - Immunization history:: Adult Immunizations up to date. - Social history:: Smoking status: Patient/guardian denies using tobacco, Patient/guardian denies using alcohol. - Ebola Screening: : Patient negative for fever greater than or equal to 101.5 degrees Fahrenheit, and additional compatible Ebola Virus Disease symptoms Patient denies exposure to infectious person Patient denies travel to an Ebola-affected area in the 21 days before illness onset. ROS: 16:22 Constitutional: Negative for fever, chills, and weight loss, Cardiovascular: Negative kb for chest pain, palpitations, and edema, Abdomen/GI: Negative for abdominal pain, nausea, vomiting, diarrhea, and constipation, Back: Negative for injury and pain, : Negative for injury, bleeding, discharge, and swelling, MS/Extremity: Negative for injury and deformity, Skin: Negative for injury, rash, and discoloration, Neuro: Negative for headache, weakness, numbness, tingling, and seizure. 16:22 Respiratory: Positive for shortness of breath, Negative for cough, dyspnea on exertion, hemoptysis, orthopnea, pleurisy, sputum production, wheezing. Exam: 16:22 Constitutional: This is a well developed, well nourished patient who is awake, alert, kb and in no acute distress. Head/Face: Normocephalic, atraumatic. Chest/axilla: Normal chest wall appearance and motion. Nontender with no deformity. No lesions are appreciated. Cardiovascular: Regular rate and rhythm with a normal S1 and S2. No gallops, murmurs, or rubs. Normal PMI, no JVD. No pulse deficits. Respiratory: Lungs have equal breath sounds bilaterally, clear to auscultation and percussion. No rales, rhonchi or wheezes noted. No increased work of breathing, no retractions or nasal flaring. Abdomen/GI: Soft, non-tender, with normal bowel sounds. No distension or tympany. No guarding or rebound. No evidence of tenderness throughout. Skin: Warm, dry with normal turgor. Normal color with no rashes, no lesions, and no evidence of cellulitis. MS/ Extremity: Pulses equal, no cyanosis. Neurovascular intact. Full, normal range of motion. Neuro: Awake and alert, GCS 15, oriented to person, place, time, and situation. Cranial nerves II-XII grossly intact. Motor strength 5/5 in all extremities. Sensory grossly intact. Cerebellar exam normal. Normal gait. Vital Signs: 14:07 BP 122 / 43; Pulse 65; Resp 18; Temp 97.5(TE); Pulse Ox 100% on 2 lpm NC; Weight 56.25 hj kg; Height 5 ft. 5 in. (165.10 cm); Pain 0/10; 15:18 BP 143 / 44; Pulse 123; Resp 18; Pulse Ox 100% on R/A; Pain 0/10; mg2 15:46 BP 131 / 43 RA Supine (auto/reg); Pulse 70; Resp 18; Pulse Ox 100% on 2 lpm NC; Pain jp3 0/10; 15:50 BP 123 / 50 RA Sitting (auto/reg); Pulse 66; Resp 18 S; Pulse Ox 100% on 2 lpm NC; Pain jp3 0/10; 15:52 BP 123 / 50; Pulse 62; Resp 18 S; Pulse Ox 100% on 2 lpm NC; Pain 0/10; jp3 17:02 BP 130 / 40; Pulse 60; Resp 18; Temp 98.5; Pulse Ox 100% on R/A; Pain 0/10; mg2 17:30 BP 135 / 48; Pulse 60; Resp 18; Pulse Ox 100% on 2 lpm NC; Pain 0/10; mg2 19:17 BP 117 / 40; Pulse 60; Resp 18; Temp 98.6(O); Pulse Ox 100% on 2 lpm NC; Pain 0/10; mg2 14:07 Body Mass Index 20.64 (56.25 kg, 165.10 cm) hj 15:46 Pt stated " I feel very relaxed" jp3 MDM: 15:15 Patient medically screened. kb 16:06 Data reviewed: vital signs, nurses notes. Data interpreted: Pulse oximetry: on room air kb is 100 %. Interpretation: normal. Counseling: I had a detailed discussion with the patient and/or guardian regarding: the historical points, exam findings, and any diagnostic results supporting the discharge/admit diagnosis, lab results, the need for further work-up and treatment in the hospital. 16:06 Physician consultation: Jose Olivia DO was contacted at 16:06, regarding admission, kb to the medical/surgical unit. patient's condition, and will see patient in ED, shortly. 09/03 15:22 Order name: CBC with Diff; Complete Time: 18:57 kb 09/03 15:22 Order name: Basic Metabolic Panel; Complete Time: 16:06 kb 09/03 15:22 Order name: Chest Single View XRAY; Complete Time: 16:08 kb 09/03 15:57 Order name: Bb Add On eb 09/03 18:51 Order name: Manual Differential; Complete Time: 18:57 EDIA 09/03 15:22 Order name: IV Start; Complete Time: 15:37 kb 09/03 15:22 Order name: Orthostatics; Complete Time: 15:59 kb 09/03 15:25 Order name: EKG; Complete Time: 15:26 kb 09/03 15:25 Order name: EKG - Nurse/Tech; Complete Time: 15:37 kb 09/03 17:33 Order name: Diet Regular; Complete Time: 17:33 tl3 Administered Medications: No medications were administered Disposition: 09/04 12:46 Co-signature as Attending Physician, Hernan Diggs MD I agree with the assessment and wa plan of care. Disposition: 09/03/18 16:08 Hospitalization ordered by Jose Olivia for Observation. Preliminary diagnosis is Anemia, unspecified. - Bed requested for Telemetry/MedSurg (observation). - Status is Observation. mg2 - Condition is Stable. - Problem is new. - Symptoms are unchanged. UTI on Admission? No Signatures: Dispatcher [employer] [facility] Marlyn Bedolla, STAGE ELECTRICIAN-C STAGE ELECTRICIAN-Kirstie Fleming RN RN Jony Gifford RN RN hj Appiah, William, MD MD wa Gardose, Michele, AKILA RN mg2 Corrections: (The following items were deleted from the chart) 09/03 15:42 15:22 TYPE AND SCREEN+[id number].BRZ ordered. [facility] 19:38 16:08 Hospitalization Ordered by Jose Olivia DO for Observation. Preliminary diagnosis is Anemia, unspecified. Bed requested for Telemetry/MedSurg (observation). Status is Observation. Condition is Stable. Problem is new. Symptoms are unchanged. UTI on Admission? No. kb 21:00 19:38 09/03/2018 16:08 Hospitalization Ordered by Jose Olivia DO for Observation. mg2 Preliminary diagnosis is Anemia, unspecified. Bed requested for Telemetry/MedSurg (observation). Status is Observation. Condition is Stable. Problem is new. Symptoms are unchanged. UTI on Admission? No. kl
--- NOTE | 2018-09-03 16:09 | ER ---
Nurse's Notes [facility] Emergency Department Name: Nikky Ocampo Age: 88 yrs Sex: Female : 1930 Arrival Date: 09/03/2018 Time: 13:36 Bed 28 Private MD: Hernan Richmond E Diagnosis: Anemia, unspecified Presentation: 09/03 14:03 Presenting complaint: Patient states: from the cancer center, was sent here for low hj Hgb, 6.8; reports SOB;. Transition of care: patient was not received from another setting of care. Onset of symptoms was September 03, 2018. Risk Assessment: Do you want to hurt yourself or someone else? Patient reports no desire to harm self or others. Initial Sepsis Screen: Does the patient meet any 2 criteria? No. Patient's initial sepsis screen is negative. Does the patient have a suspected source of infection? No. Patient's initial sepsis screen is negative. Care prior to arrival: None. 14:03 Method Of Arrival: Ambulatory 14:03 Acuity: TASIA 3 hj Triage Assessment: 14:06 General: Appears in no apparent distress. uncomfortable, Behavior is calm, cooperative, hj appropriate for age. Pain: Denies pain. Historical: - Allergies: 14:06 Codeine; hj - Home Meds: 14:06 Allergy Medicine Oral [Active]; aspercreme lotion 10% PRN [Active]; Bactrim DS 800-160 hj mg Oral tab 1 tab q12 hours x 10 days [Active]; Bosulif 100 mg Oral tab 3 tabs once daily [Active]; cranberry Oral [Active]; dasatinib Oral [Active]; digoxin 125 mcg Oral tab 1 tab Every other day [Active]; Econazole Nitrate Cream [Active]; Eliquis 5 mg Oral tab 1 tab 2 times per day [Active]; Estrace CREAM Oral [Active]; fluconazole Oral [Active]; fluticasone nasal [Active]; furosemide 20 mg Oral tab 1 tab as needed [Active]; gabapentin 400 mg Oral cap 2 cap 4x per day [Active]; levothyroxine 50 mcg tab 1 tab once daily [Active]; metoprolol succinate 25 mg Oral Tb24 twice a day [Active]; Prednisone Oral [Active]; preser vision [Active]; ranitidine HCl 150 mg Oral cap once daily [Active]; Restasis ophthalmic [Active]; spironolactone 50 mg Oral tab 1 tab once daily [Active]; Spironolactone Oral [Active]; Tasigna Oral 2 caps every 12 hours [Active]; tramadol 50 mg Oral tab 1 tab once a day [Active]; Hydroxyurea Oral [Active]; - PMHx: 14:06 CHF; Chronic leukemia; colon cancer; Hypertension; Pacemaker; hj - PSHx: 14:06 Carotid surgery; hj - Immunization history:: Adult Immunizations up to date. - Social history:: Smoking status: Patient/guardian denies using tobacco, Patient/guardian denies using alcohol. - Ebola Screening: : Patient negative for fever greater than or equal to 101.5 degrees Fahrenheit, and additional compatible Ebola Virus Disease symptoms Patient denies exposure to infectious person Patient denies travel to an Ebola-affected area in the 21 days before illness onset. Screenin:06 Abuse screen: Denies threats or abuse. Denies injuries from another. Nutritional hj screening: No deficits noted. Tuberculosis screening: No symptoms or risk factors identified. Fall Risk None identified. Assessment: 15:15 General: Appears in no apparent distress. comfortable, Behavior is calm, cooperative. mg2 Pain: Denies pain. Neuro: Level of Consciousness is awake, alert, obeys commands, Oriented to person, place, time, situation. Cardiovascular: Capillary refill < 3 seconds Patient's skin is warm and dry. Respiratory: Airway is patent Respiratory effort is even, unlabored, Respiratory pattern is regular, symmetrical. GI: No signs and/or symptoms were reported involving the gastrointestinal system. : No signs and/or symptoms were reported regarding the genitourinary system. EENT: No signs and/or symptoms were reported regarding the EENT system. Derm: Skin is intact, is healthy with good turgor, Skin is red. Musculoskeletal: Circulation, motion, and sensation intact. Capillary refill < 3 seconds. 17:01 Reassessment: Patient appears in no apparent distress at this time. Patient and/or mg2 family updated on plan of care and expected duration. Pain level reassessed. Patient is alert, oriented x 3, equal unlabored respirations, skin warm/dry/pink. blood transfusion started \\T\\ 1640. no reactions noted. awaiting for bed assignment in the floor. Vital Signs: 14:07 BP 122 / 43; Pulse 65; Resp 18; Temp 97.5(TE); Pulse Ox 100% on 2 lpm NC; Weight 56.25 hj kg; Height 5 ft. 5 in. (165.10 cm); Pain 0/10; 15:18 BP 143 / 44; Pulse 123; Resp 18; Pulse Ox 100% on R/A; Pain 0/10; mg2 15:46 BP 131 / 43 RA Supine (auto/reg); Pulse 70; Resp 18; Pulse Ox 100% on 2 lpm NC; Pain jp3 0/10; 15:50 BP 123 / 50 RA Sitting (auto/reg); Pulse 66; Resp 18 S; Pulse Ox 100% on 2 lpm NC; Pain jp3 0/10; 15:52 BP 123 / 50; Pulse 62; Resp 18 S; Pulse Ox 100% on 2 lpm NC; Pain 0/10; jp3 17:02 BP 130 / 40; Pulse 60; Resp 18; Temp 98.5; Pulse Ox 100% on R/A; Pain 0/10; mg2 17:30 BP 135 / 48; Pulse 60; Resp 18; Pulse Ox 100% on 2 lpm NC; Pain 0/10; mg2 19:17 BP 117 / 40; Pulse 60; Resp 18; Temp 98.6(O); Pulse Ox 100% on 2 lpm NC; Pain 0/10; mg2 14:07 Body Mass Index 20.64 (56.25 kg, 165.10 cm) hj 15:46 Pt stated " I feel very relaxed" jp3 ED Course: 13:36 Patient arrived in ED. ag5 13:37 Hernan Richmond MD is Private Physician. ag5 14:04 Triage completed. hj 14:06 Arm band placed on right wrist. hj 14:06 Patient has correct armband on for positive identification. Placed in gown. Bed in low hj position. Call light in reach. Side rails up X 1. 14:58 Barry Juan, AKILA is Primary Nurse. mg2 15:14 Marlyn Bedolla FNP-C is PHCP. kb 15:14 Hernan Diggs MD is Attending Physician. kb 15:15 No provider procedures requiring assistance completed. Inserted saline lock: 20 gauge mg2 in right hand, using aseptic technique. Blood collected. 15:45 Chest Single View XRAY In Process Unspecified. EDMS 16:06 Jose Olivia DO is Hospitalizing Provider. kb 16:09 EKG done, by air traffic systems technician. reviewed by Marlyn STRICKLAND. sm3 20:28 Patient admitted, IV remains in place. mg2 Administered Medications: No medications were administered Medication: 16:40 Blood products: PRBCs X 1 unit given. mg2 Outcome: 16:08 Decision to Hospitalize by Provider. kb 20:29 Admitted to Tele accompanied by nurse, via wheelchair, room 403, with chart, Report mg2 called to Florencia 20:29 Condition: stable 20:29 Instructed on the need for admit, Demonstrated understanding of instructions. 21:00 Patient left the ED. mg2 Signatures: Dispatcher [employer] EDKY Marlyn Bedolla, EM CHACON-CkJony Orozco, RN RN Barry Juan RN RN mg2 Lizzette Powers sm3 Moustapha Daly 3 Mark Salas ag5 Corrections: (The following items were deleted from the chart) 14:09 14:07 Pulse 65bpm; Resp 18bpm; Pulse Ox 99% 2 lpm Nasal Cannula; Temp 97.5F Temporal; hj 56.25 kg; Height 5 ft. 5 in.; BMI: 20.6; Pain 0/10; hj
[2018-09-03 16:17] LABS: Absolute Lymphocytes (CBC) 5.2 K/uL (0.7-4.9); Absolute Monocytes 1.6 K/uL (0.1-1.3); Absolute Neutrophil 8.9 K/uL (1.8-8.0); Basophils % 1.1 % (0-1.3); Hematocrit 23.2 % (36.0-45.0); Lymphocytes % 32.5 % (15.3-44.8); MPV 8.2 fL (7.6-11.3)
--- NOTE | 2018-09-03 16:27 | P.HP ---
Certification for Inpatient Patient admitted to: Observation With expected LOS: <2 Midnights Patient will require the following post-hospital care: None Practitioner: I am a practitioner with admitting privileges, knowledge of patient current condition, hospital course, and medical plan of care. Services: Services provided to patient in accordance with Admission requirements found in Title 42 Section 412.3 of the Code of Federal Regulations Patient History Date of Service: 09/03/18 Primary Care Provider: Dr. Richmond; Oncology/Hematology-Dr. Jolley Reason for admission: Low hemoglobin History of Present Illness: 80-year-old female with history of CML, atrial fibrillation on chronic anti coagulation therapy, GERD, hypothyroidism, hypertension, chronic pain, and chronic CHF. Patient presented to the emergency room after she was sent by her heavy truck mechanic due to low hemoglobin. She has gotten blood work this morning. Hemoglobin was 6.8. Patient ranges around 8-9. Due to the low hemoglobin the patient was sent to the ER for transfusion. Patient denies any hematemesis, melena, or bright red blood from the stool. Patient was evaluated the emergency room. She appeared stable. CBC unremarkable. Patient was admitted for transfusion. When I saw the patient in the ER, she appeared comfortable. I recently saw all the patient on August 172018. She had been hospitalized for acute on chronic anemia. Patient had 3 units of blood at that time. Acute anemia was thought to have been related to previous chemotherapy. That chemotherapy has been discontinued. Patient has had an EGD and colonoscopy showing no active bleeding. Allergies codeine [Codeine] Adverse Reaction (Verified 02/01/12 09:06) vomiting Home medications list reviewed: Yes Home Medications: Levothyroxine [Synthroid*] 50 mcg PO DAILY 09/06/13 Apixaban [Eliquis *] 2.5 mg PO BID 04/14/18 Digoxin [Lanoxin*] 125 mcg PO SEECOM 04/14/18 Metoprolol Succinate [Toprol Xl*] 25 mg PO BID 04/14/18 Tramadol HCl [Ultram] 50 mg PO BID PRN 04/14/18 Cyclosporine [Restasis] 1 each OP BID 05/28/18 Furosemide 20 mg PO DAILY PRN 08/14/18 Montelukast [Singulair*] 10 mg PO DAILY PRN 08/14/18 predniSONE [Deltasone*] 30 mg PO DAILY #30 tab 08/17/18 Albuterol Sulfate [Proair Hfa] 2 puff IH QID PRN 08/25/18 Azelastine HCl [Astepro] 2 spray OPTH BID 08/25/18 Gabapentin 300 mg PO QID 08/25/18 Nilotinib HCl [Tasigna] 300 mg PO BID 08/25/18 Sulfamethoxazole/Trimethoprim [Bactrim 400-80 mg Tablet] 1 tab PO DAILY raNITIdine HCl [Ranitidine HCl] 150 mg PO DAILY 08/25/18 - Past Medical/Surgical History Diabetic: No -: Chronic CHF, diastolic -: GERD -: Atrial fibrillation, chronic anti coagulation therapy -: Varicose Veins -: Peripheral Neuropathy -: CML (chronic myeloid leukemia) -: Vitamin D Deficiency -: Hypothyroidism -: Insomnia -: Hypertension -: Chronic renal disease -: Angiodysplasia of intestine with hemorrhage -: Hysterectomy -: Back surgery x2 -: Debbie -: bladder sx. -: carotid sx Psychosocial/ Personal History: Patient lives at home. - Family History Mother -: Cancer, Liver disease Father -: Cancer, Liver disease Notes: THROAT CANCER - Social History Smoking Status: Never smoker Alcohol use: No CD- Drugs: No Caffeine use: Yes Place of Residence: Home Review of Systems General: Unremarkable Eyes: Unremarkable ENT: Unremarkable Respiratory: Unremarkable Cardiovascular: Unremarkable Gastrointestinal: Unremarkable Genitourinary: Unremarkable Musculoskeletal: Unremarkable Integumentary: Unremarkable Neurological: Unremarkable Lymphatics: Unremarkable Physical Examination - Physical Exam General: Alert, In no apparent distress, Oriented x3, Cooperative HEENT: Atraumatic, Normocephalic, Mucous membr. moist/pink Neck: Supple Respiratory: Clear to auscultation bilaterally, Normal air movement Cardiovascular: Normal pulses, Regular rate/rhythm Gastrointestinal: Normal bowel sounds, Soft and benign, Non-distended, No tenderness, No masses, No rebound, No guarding Musculoskeletal: No erythema, No tenderness, No warmth Integumentary: No tenderness/swelling, No erythema, No warmth, No cyanosis Neurological: Normal speech, Normal strength at 5/5 x4 extr, Normal tone, Normal affect - Studies Laboratory Data (last 24 hrs) 09/03/18 15:10: Sodium 139, Potassium 4.6, BUN 58 H, Creatinine 1.04, Glucose 107 H Assessment and Plan - Plan Impression: Acute on chronic anemia complicated with history of CML and chronic anti coagulation therapy Atrial fibrillation on chronic anti coagulation GERD Hypothyroidism Hypertension Chronic pain Chronic diastolic CHF Chronic renal disease, stage II Plan: Acute on chronic anemia complicated with history of CML and chronic anti coagulation therapy: Patient will be admitted. Will transfuse 2 units. Will monitor closely. Will repeat hemoglobin after 2nd unit. Goal hemoglobin to be above 8.0. Anticipate discharge in the next 24 hr. Will discuss with her heavy truck mechanic. Previous EGD and colonoscopy showed no active bleed. Patient without melena, hematemesis, bright red blood per rectum Atrial fibrillation on chronic anti coagulation: Continue with Eliquis and rate control medication-digoxin. GERD: Continue medication Hypothyroidism: Continue medication Hypertension: Continue medication Chronic pain: Will provide medication Chronic diastolic CHF: Continue with Lasix Chronic renal disease, stage II: Will monitor closely. Discharge Plan: Home Plan to discharge in: 24 Hours - Advance Directives Does patient have a Living Will: Yes Does patient have a Durable POA for Healthcare: Yes - Code Status/Comfort Care Code Status Assessed: Yes (Patient is full code.) Time Spent Managing Pts Care (In Minutes): 55
[2018-09-03] MEDS ORDERED: NA CHLORIDE 0.9% 250 ML ONE (16:33)
--- NOTE | 2018-09-03 17:03 | EKG ---
Test Date: 2018-09-03 Test Time: 15:38:58 Bakery Worker: RODERICK MEASUREMENT RESULTS: Intervals: Rate: 64 IN: 180 QRSD: 126 QT: 412 QTc: 425 [place]: P: 9 IN: 180 QRS: 108 T: 7 INTERPRETIVE STATEMENTS: AV dual-paced rhythm Abnormal ECG Compared to ECG 08/24/2018 16:32:59 [place] QRS complexes are no longer present Electronically Signed On 09-03-18 17:03:09 INFORMATION SECURITY CONSULTANT by Marcello Choi
[2018-09-03 18:49] LABS: Anisocytosis 3+; Blood Morphology Comment NOTED (NOT SEEN); Macrocytosis 1+; Ovalocytes 1+; Platelet Estimate INCR; Platelets, Giant PRESENT; Polychromasia 2+
[2018-09-03] MEDS ORDERED: DIGOXIN 0.125 MG TABLET PO SCH (21:33)
[2018-09-03] MEDS: METOPROLOL TAR 25 MG TAB PO SCH (21:33)
[2018-09-03] MEDS ORDERED: ONDANSETRON 4 MG/2 ML VIAL IV PRN (21:33)
[2018-09-03] MEDS ORDERED: ACETAMINOPHEN 500 MG TAB PO PRN (21:33)
[2018-09-03] MEDS: APIXABAN 2.5 MG TABLET PO SCH (21:33)
[2018-09-03] MEDS ORDERED: FUROSEMIDE 20 MG/ 2ML VIAL IV ONE (22:07)
[2018-09-03] MEDS: TRAMADOL HCL 50 MG TAB PO PRN (23:28)
[2018-09-03 23:44] VITALS: BMI 20.6
[2018-09-04 00:08] VITALS: O2SAT 96
[2018-09-04] MEDS ORDERED: NA CHLORIDE 0.9% 500 ML ONE (00:09)
[2018-09-04] MEDS: FUROSEMIDE 20 MG/ 2ML VIAL IV ONE ×2 (05:00→09:32)
[2018-09-04] MEDS: METOPROLOL TAR 25 MG TAB PO SCH (05:50)
[2018-09-04] MEDS ORDERED: PANTOPRAZOLE 40MG TABLET PO SCH (06:30)
[2018-09-04] MEDS ORDERED: LEVOTHYROXINE SOD 0.05 MG TABLET PO SCH (06:30)
[2018-09-04 06:38] LABS: Absolute Lymphocytes (CBC) 3.6 K/uL (0.7-4.9); Absolute Monocytes 1.3 K/uL (0.1-1.3); Absolute Neutrophil 6.4 K/uL (1.8-8.0); Basophils % 0.6 % (0-1.3); Eosinophils % 1.2 % (0-4.4); Hematocrit 26.6 % (36.0-45.0); Lymphocytes % 31.1 % (15.3-44.8); MPV 7.6 fL (7.6-11.3); Monocytes % 11.2 % (3.3-12.3); RBC Red Blood Cell Count 2.85 M/uL (3.86-4.86)
[2018-09-04 06:51] LABS: Magnesium 2.7 mg/dL (1.8-2.4); Potassium 4.6 mmol/L (3.5-5.1)
[2018-09-04] MEDS ORDERED: AZELASTINE NASAL SPRAY 30 ML NAS SCH (08:15)
[2018-09-04 08:36] LABS: Hematocrit 29.7 % (36.0-45.0); MPV 8.1 fL (7.6-11.3); RBC Red Blood Cell Count 3.18 M/uL (3.86-4.86)
[2018-09-04] MEDS ORDERED: SULFAMETHOXAZOLE PO SCH (09:00)
[2018-09-04] MEDS ORDERED: predniSONE 5 MG TAB PO SCH (09:00)
[2018-09-04] MEDS ORDERED: FUROSEMIDE 20 MG TABLET PO SCH (09:00)
[2018-09-04] MEDS ORDERED: GABAPENTIN 300 MG CAP PO SCH (09:00)
[2018-09-04] MEDS ORDERED: HOME MED 1 EA UNK (Cyclosporine [Restasis] 1 EACH) OP SCH (09:00)
[2018-09-04] MEDS ORDERED: TRIMETHOPRIM PO SCH (09:00)
[2018-09-04] MEDS ORDERED: NILOTINIB HCL 300 MG PO SCH (09:00)
--- NOTE | 2018-09-04 09:24 | P.DS ---
Admission Date: 09/03/18 Discharge Date: 09/04/18 Primary Care Provider: Dr. Richmond; Oncology/Hematology-Dr. Jolley Disposition: ROUTINE DISCHARGE Discharge Condition: GOOD Reason for Admission: Low hemoglobin Consultations: none Procedures: Transfusion: 2 units of pRBCs Medical Problem List: Acute on chronic anemia complicated with history of CML/thrombocytosis and chronic anti coagulation therapy Atrial fibrillation on chronic anti coagulation GERD Hypothyroidism Hypertension Chronic pain Chronic diastolic CHF Chronic renal disease, stage II Brief History of Present Illness: 80-year-old female with history of CML, atrial fibrillation on chronic anti coagulation therapy, GERD, hypothyroidism, hypertension, chronic pain, and chronic CHF. Patient presented to the emergency room after she was sent by her auxiliary operator due to low hemoglobin. She has gotten blood work this morning. Hemoglobin was 6.8. Patient ranges around 8-9. Due to the low hemoglobin the patient was sent to the ER for transfusion. Patient denies any hematemesis, melena, or bright red blood from the stool. Patient was evaluated the emergency room. She appeared stable. CBC unremarkable. Patient was admitted for transfusion. When I saw the patient in the ER, she appeared comfortable. I recently saw all the patient on August 172018. She had been hospitalized for acute on chronic anemia. Patient had 3 units of blood at that time. Acute anemia was thought to have been related to previous chemotherapy. That chemotherapy has been discontinued. Patient has had an EGD and colonoscopy showing no active bleeding. Hospital Course: Patient presented with acute on chronic anemia complicated with history of CML/ thrombocytosis and chronic anti coagulation therapy. Patient was sent to the emergency room by her auxiliary operator/oncologist. She is found to have a low hemoglobin. Repeat hemoglobin shows 7.0. Patient runs above 8.0. Patient was admitted for transfusion. Patient received 2 units of packed red blood cells. Patient denied any melena, rectal bleeding or hematemesis. Posttransfusion hemoglobin up to 9.4. Patient will be discharged home and follow up with hematology. At discharge she will continue with her medications including Hydrea 1500 mg 1 pill twice daily, Tasigna 300 mg twice daily, Bactrim 1 pill daily and prednisone 5 mg once daily. Recommend to follow up with hematology within 1 week to repeat lab work and continue her care. Patient has chronic atrial fibrillation on anti coagulation therapy. Patient will continue with her medications including Eliquis 2.5 mg 1 pill twice daily and Toprol-XL 25 mg 1 pill twice daily. Patient has GERD. Patient will continue with medication-Protonix 40 mg daily. Patient has hypertension. Patient will continue with Toprol-XL 25 mg 1 pill twice daily. Recommendation is to maintain blood pressures less 150/80. Further adjustment can be done by her PCP. Patient with chronic diastolic CHF. Patient will continue with Lasix 20 mg daily. She is to continue with a 1500 cc per day fluid restriction. She is to monitor her weight daily. If her weight increases by more than 5 lb she is to contact her PCP for further recommendation. Patient with chronic renal disease, stage II. This has remained stable. Recommend to recheck lab-BMP in 2-4 weeks to monitor her progress. Patient has chronic pain. Patient will continue with her medication tramadol 50 mg 1 pill twice daily and gabapentin 300 mg 4 times a day. Further adjustment can be done by her PCP. Patient has hypothyroidism. Patient will continue with her medications Synthroid 50 mcg daily. Vital Signs/Physical Exam: Temp Pulse Resp BP Pulse Ox 97.7 F 60 17 123/55 L 100 09/04/18 04:00 09/04/18 05:50 09/04/18 04:00 09/04/18 05:50 09/04/18 04:00 General: Alert, In no apparent distress, Oriented x3, Cooperative HEENT: Atraumatic Neck: Supple Respiratory: Clear to auscultation bilaterally, Normal air movement Cardiovascular: Normal pulses, Regular rate/rhythm Gastrointestinal: Normal bowel sounds, Soft and benign, Non-distended, No tenderness, No masses, No rebound, No guarding Musculoskeletal: No erythema, No tenderness, No warmth Integumentary: No tenderness/swelling, No erythema, No warmth, No cyanosis Neurological: Normal speech, Normal strength at 5/5 x4 extr, Normal tone, Normal affect Laboratory Data at Discharge: WBC 11.0 K/uL (4.3-10.9) H 09/04/18 08:04 Hgb 9.4 g/dL (12.0-15.0) L 09/04/18 08:04 Hct 29.7 % (36.0-45.0) L 09/04/18 08:04 Plt Count 2773 K/uL (152-406) H* 09/04/18 08:04 Sodium 143 mmol/L (136-145) 09/04/18 06:11 Potassium 4.6 mmol/L (3.5-5.1) 09/04/18 06:11 BUN 48 mg/dL (7-18) H 09/04/18 06:11 Creatinine 0.89 mg/dL (0.55-1.3) 09/04/18 06:11 Glucose 83 mg/dL (74-106) 09/04/18 06:11 Magnesium 2.7 mg/dL (1.8-2.4) H 09/04/18 06:11 Home Medications: Levothyroxine [Synthroid*] 50 mcg PO DAILY 09/06/13 Apixaban [Eliquis *] 2.5 mg PO BID 04/14/18 Digoxin [Lanoxin*] 125 mcg PO Q48H 04/14/18 Metoprolol Succinate [Toprol Xl*] 25 mg PO BID 04/14/18 Tramadol HCl [Ultram] 50 mg PO BID PRN 04/14/18 Cyclosporine [Restasis] 1 each OP BID 05/28/18 Furosemide 20 mg PO DAILY PRN 08/14/18 Azelastine HCl [Astepro] 2 spray CARROL PRN 08/25/18 Gabapentin 300 mg PO QID 08/25/18 Nilotinib HCl [Tasigna] 300 mg PO BID 08/25/18 Sulfamethoxazole/Trimethoprim [Bactrim 400-80 mg Tablet] 100 mg PO DAILY Hydroxyurea [Hydrea*] 1,500 mg PO BID 09/03/18 predniSONE [Prednisone] 5 mg PO DAILY 09/03/18 Patient Discharge Instructions: 1. Patient will follow up with hematology within 1 week to follow up this hospitalization. 2. Patient presented with acute on chronic anemia complicated with history of CML/thrombocytosis and chronic anti coagulation therapy. Patient was sent to the emergency room by her auxiliary operator/oncologist. She is found to have a low hemoglobin. Repeat hemoglobin shows 7.0. Patient runs above 8.0. Patient was admitted for transfusion. Patient received 2 units of packed red blood cells. Patient denied any melena, rectal bleeding or hematemesis. Posttransfusion hemoglobin up to 9.4. Patient will be discharged home and follow up with hematology. At discharge she will continue with her medications including Hydrea 1500 mg 1 pill twice daily, Tasigna 300 mg twice daily, Bactrim 1 pill daily and prednisone 5 mg once daily. Recommend to follow up with hematology within 1 week to repeat lab work and continue her care. 3. Patient has chronic atrial fibrillation on anti coagulation therapy. Patient will continue with her medications including Eliquis 2.5 mg 1 pill twice daily and Toprol-XL 25 mg 1 pill twice daily. 4. Patient has GERD. Patient will continue with medication- Protonix 40 mg daily. 5. Patient has hypertension. Patient will continue with Toprol-XL 25 mg 1 pill twice daily. Recommendation is to maintain blood pressures less 150/80. Further adjustment can be done by her PCP. 6. Patient with chronic diastolic CHF. Patient will continue with Lasix 20 mg daily. She is to continue with a 1500 cc per day fluid restriction. She is to monitor her weight daily. If her weight increases by more than 5 lb she is to contact her PCP for further recommendation. 7. Patient with chronic renal disease, stage II. This has remained stable. Recommend to recheck lab-BMP in 2-4 weeks to monitor her progress. 8. Patient has chronic pain. Patient will continue with her medication tramadol 50 mg 1 pill twice daily and gabapentin 300 mg 4 times a day. Further adjustment can be done by her PCP. 9. Patient has hypothyroidism. Patient will continue with her medications Synthroid 50 mcg daily. Diet: AHA Activity: Ad pallavi Time spent managing pt's care (in minutes): 55
[2018-09-04] MEDS: HYDROXYUREA 500 MG CAP PO SCH ×2 (09:32→09:33)
[2018-09-04] MEDS: TRAMADOL HCL 50 MG TAB PO PRN (09:33)
[2018-09-04] MEDS: APIXABAN 2.5 MG TABLET PO SCH (09:34)
[2018-09-04 13:00] VITALS: BP 107/53; TEMP 98.3
== END 2018-09-04 12:41 | disposition home health service (06) ==
LOC: ER 13:35 → ERHOLD 16:15 → 4TH 20:51
PROVIDERS: ADMIT Family Medicine; ATTEND Family Medicine
PROC: 30233N1 Transfusion of Nonautologous Red Blood Cells into Peripheral Vein, Percutaneous Approach (ICD-10-PCS; principal; 2018-09-03)
DX: D64.9 Anemia, unspecified (principal); I48.91 Unspecified atrial fibrillation; K21.9 Gastro-esophageal reflux disease without esophagitis; E03.9 Hypothyroidism, unspecified; I13.0 Hypertensive heart and chronic kidney disease with heart failure and stage 1 through stage 4 chronic kidney disease, or unspecified chronic kidney disease; I50.32 Chronic diastolic (congestive) heart failure; N18.2 Chronic kidney disease, stage 2 (mild); Z79.01 Long term (current) use of anticoagulants; Z85.6 Personal history of leukemia; G89.29 Other chronic pain
CPT/HCPCS: 36415; 36430 ×2; 71045; 80048 ×2; 83735; 85025 ×2; 85027; 93005; 99285; G0378 ×2; J1940 ×2

== ENCOUNTER 2018-10-04 23:52 | Observation (INO) | payer OTHER ==
--- OUTSIDE RECORDS SUMMARY | 2018-10-04 23:55 | XMS REPORT | Clinical Summary ---
:1930 Author Organization [facility] Address [address] [place] [address] Care Team Providers Name Role Phone Hernan [...] INFLUENZA VACCINE 04/27/2018 Implants Implanted Type Area Safety Fire Boss Device Shelf Model / Identifier Expiration Serial / Lot Date Lead Attain Performa 78cm [id number] - [id number] Cardiovascular N/A: [employer] :CARD 10/03/2018 [id number] / Implanted: Qty: 1 on 01/07/2017 by Satya Perales MD Chest RHY: DISEASE [id number] / MGT Ld Endocardial Df4 Act 55 [id number] - [id number] Defibrillators N/A: [employer]:CARD 10/10/2018 [id number] / Implanted: Qty: 1 on 01/07/2017 by Satya Perales MD Chest RHY: DISEASE [id number] / MGT Dev Amplia Quad Mechanic Marine Engine-D Surescn [id number] - [id number] Defibrillators N/A: [employer]:CARD 04/24/2018 [id number] / Implanted: Qty: 1 on 01/07/2017 by Satya Perales MD Chest RHY:PACING SYS [id number] / Grft Hemshld Dbl Silvio 0.3x3.0in [id number] - [id number] Graft/Patch Right: GETINGE 04/26/2021 [id number] / Implanted: Qty: 1 on 10/01/2016 by Miguelangel Stack MD Neck IND:MAQUET:CV [id number] / [id number] Lead Pacemkr Rosa Chew 45x1 [id number] - [id number] Pacemaker Lead N/A: [employer]:CARD 09/23/2018 [id number] / Implanted: Qty: 1 on 01/07/2017 by Satya Perales MD Chest RHY: DISEASE [id number] / MGT Results Not on fileafter 10/03/2017 Insurance Payer Benefit Plan / Group Subscriber ID Type Phone Address CARE IMPROVEMENT MEDICARE MGD CARE IMPROVEMENT PLUS xxxxxxxxx [address]ARE DR dinora Hazel (Home) [address] [place] [address] Advance Directives For more information, please contact:[address] [phone] Code Status Date Activated Date Inactivated Comments Full Code 01/07/2017 1:15 PM 01/08/2017 4:34 PM This code status was determined by: Patient Full Code 10/01/2016 11:49 AM 10/03/2016 8:34 PM This code status was determined by: Patient Full Code 09/30/2016 6:24 PM 10/01/2016 11:49 AM This code status was determined by: Patient
--- OUTSIDE RECORDS SUMMARY | 2018-10-04 23:56 | XMS REPORT ---
:1930 [facility] Address [address] [place] [id number] Care Team Providers Name Role Phone CHUCK [...] Value Reference Range Comments MAGNESIUM (BEAKER) (test bxkj=779) 2.0 mg/dL 1.6-2.6 Specimen slightly hemolyzed BASIC METABOLIC [id number] 05:25:00 Test Item Value Reference Range Comments SODIUM (BEAKER) (test 138 meq/L 136-145 liev=581) POTASSIUM (BEAKER) (test 4.6 meq/L 3.5-5.1 Specimen slightly csqo=047) hemolyzed CHLORIDE (BEAKER) (test 108 meq/L 98-107 tmje=602) CO2 (BEAKER) (test 23 meq/L 22-29 pzha=064) BLOOD UREA NITROGEN 14 mg/dL 7-21 (BEAKER) (test mxan=920) CREATININE (BEAKER) (test 0.87 mg/dL 0.57-1.25 Specimen slightly mlyq=762) hemolyzed GLUCOSE RANDOM (BEAKER) 109 mg/dL 70-105 (test yrgy=785) CALCIUM (BEAKER) (test 8.9 mg/dL 8.4-10.2 dpwj=369) EGFR (BEAKER) (test 62 mL/min/1.73 sq m ESTIMATED GFR IS NOT ohmh=2225) ACCURATE CREATININE CLEARANCE IN PREDICTING GLOMERULAR FILTRATION RATE. ESTIMATED GFR IS NOT APPLICABLE FOR DIALYSIS PATIENTS. CBC (HEMOGRAM ONLY)2017-01-08 05:22:00 Test Item Value Reference Range Comments WHITE BLOOD CELL COUNT (BEAKER) (test bvuw=721) 11.1 K/ L 4.0-10.0 RED BLOOD CELL COUNT (BEAKER) (test holz=605) 3.62 M/ L 4.00-5.00 HEMOGLOBIN (BEAKER) (test xuvt=116) 12.2 GM/DL 12.0-15.0 HEMATOCRIT (BEAKER) (test rxbp=488) 36.3 % 36.0-45.0 MEAN CORPUSCULAR VOLUME (BEAKER) (test sxln=630) 101.0 fL 82.0-99.0 MEAN CORPUSCULAR HEMOGLOBIN (BEAKER) (test 33.9 pg 27.0-33.0 iqwq=100) MEAN CORPUSCULAR HEMOGLOBIN CONC (BEAKER) (test 33.7 GM/DL 32.0-36.0 lfwu=635) RED CELL DISTRIBUTION WIDTH (BEAKER) (test 15.2 % 10.3-14.2 ubux=511) PLATELET COUNT (BEAKER) (test ysrm=132) 201 K/CU MM 150-430 MEAN PLATELET VOLUME (BEAKER) (test spzq=707) 7.6 fL 6.5-10.5 NUCLEATED RED BLOOD CELLS (BEAKER) (test 0 /100 WBC 0-0 egfw=179) 0.00CBC (HEMOGRAM ONLY)2017-01-07 05:01:00 Test Item Value Reference Range Comments WHITE BLOOD CELL COUNT (BEAKER) (test tubm=223) 5.8 K/ L 4.0-10.0 RED BLOOD CELL COUNT (BEAKER) (test fwjc=385) 3.68 M/ L 4.00-5.00 HEMOGLOBIN (BEAKER) (test ogpd=848) 12.1 GM/DL 12.0-15.0 HEMATOCRIT (BEAKER) (test bxfl=869) 36.9 % 36.0-45.0 MEAN CORPUSCULAR VOLUME (BEAKER) (test kang=322) 100.0 fL 82.0-99.0 MEAN CORPUSCULAR HEMOGLOBIN (BEAKER) (test 33.0 pg 27.0-33.0 fvjp=273) MEAN CORPUSCULAR HEMOGLOBIN CONC (BEAKER) (test 32.8 GM/DL 32.0-36.0 mnya=478) RED CELL DISTRIBUTION WIDTH (BEAKER) (test 13.5 % 10.3-14.2 zsmw=880) PLATELET COUNT (BEAKER) (test pxri=524) 204 K/CU MM 150-430 MEAN PLATELET VOLUME (BEAKER) (test uhve=187) 7.3 fL 6.5-10.5 NUCLEATED RED BLOOD CELLS (BEAKER) (test 0 /100 WBC 0-0 keso=085) [id number] 02:15:00 Test Item Value Reference Range Comments MAGNESIUM (BEAKER) (test xaqr=306) 2.2 mg/dL 1.6-2.6 BASIC METABOLIC [id number] 02:15:00 Test Item Value Reference Range Comments SODIUM (BEAKER) (test 142 meq/L 136-145 hlzw=260) POTASSIUM (BEAKER) (test 4.0 meq/L 3.5-5.1 ovho=811) CHLORIDE (BEAKER) (test 110 meq/L 98-107 slxe=127) CO2 (BEAKER) (test 23 meq/L 22-29 zira=799) BLOOD UREA NITROGEN 21 mg/dL 7-21 (BEAKER) (test lijh=160) CREATININE (BEAKER) (test 1.02 mg/dL 0.57-1.25 uufc=900) GLUCOSE RANDOM (BEAKER) 102 mg/dL 70-105 (test gdrg=448) CALCIUM (BEAKER) (test 8.9 mg/dL 8.4-10.2 hcce=309) EGFR (BEAKER) (test 51 mL/min/1.73 sq m ESTIMATED GFR IS NOT hrgu=5302) ACCURATE CREATININE CLEARANCE IN PREDICTING GLOMERULAR FILTRATION RATE. ESTIMATED GFR IS NOT APPLICABLE FOR DIALYSIS PATIENTS. [id number] 02:02:00 Test Item Value Reference Range Comments PARTIAL THROMBOPLASTIN TIME (BEAKER) (test 67.1 seconds 22.5-36.0 pqsg=818) CBC W/PLT COUNT & AUTO [id number] 01:59:00 Test Item Value Reference Range Comments WHITE BLOOD CELL COUNT (BEAKER) (test axtm=532) 5.2 K/ L 4.0-10.0 RED BLOOD CELL COUNT (BEAKER) (test odmt=997) 3.33 M/ L 4.00-5.00 HEMOGLOBIN (BEAKER) (test mrbs=760) 11.4 GM/DL 12.0-15.0 HEMATOCRIT (BEAKER) (test aigy=723) 33.5 % 36.0-45.0 MEAN CORPUSCULAR VOLUME (BEAKER) (test zgyh=615) 101.0 fL 82.0-99.0 MEAN CORPUSCULAR HEMOGLOBIN (BEAKER) (test 34.4 pg 27.0-33.0 gurn=594) MEAN CORPUSCULAR HEMOGLOBIN CONC (BEAKER) (test 34.1 GM/DL 32.0-36.0 chpo=638) RED CELL DISTRIBUTION WIDTH (BEAKER) (test 13.5 % 10.3-14.2 jodb=150) PLATELET COUNT (BEAKER) (test jwut=937) 184 K/CU MM 150-430 MEAN PLATELET VOLUME (BEAKER) (test ygck=588) 7.0 fL 6.5-10.5 NUCLEATED RED BLOOD CELLS (BEAKER) (test 0 /100 WBC 0-0 qujn=210) NEUTROPHILS RELATIVE PERCENT (BEAKER) (test 49 % dnru=889) LYMPHOCYTES RELATIVE PERCENT (BEAKER) (test 34 % jmgy=666) MONOCYTES RELATIVE PERCENT (BEAKER) (test 10 % eahf=826) EOSINOPHILS RELATIVE PERCENT (BEAKER) (test 7 % gnut=100) BASOPHILS RELATIVE PERCENT (BEAKER) (test 0 % pctl=263) NEUTROPHILS ABSOLUTE COUNT (BEAKER) (test 2.52 K/ L 1.80-8.00 ufmv=392) LYMPHOCYTES ABSOLUTE COUNT (BEAKER) (test 1.75 K/ L 1.48-4.50 suwz=634) MONOCYTES ABSOLUTE COUNT (BEAKER) (test 0.54 K/ L 0.00-1.30 lkyx=064) EOSINOPHILS ABSOLUTE COUNT (BEAKER) (test 0.34 K/ L 0.00-0.50 sfot=472) BASOPHILS ABSOLUTE COUNT (BEAKER) (test 0.02 K/ L 0.00-0.20 mcly=611) 0.00DIGOXIN [id number] 18:00:00 Test Item Value Reference Range Comments DIGOXIN LEVEL (BEAKER) (test sfrm=962) 0.4 ng/mL 0.8-2.0 TSH/FREE T4 IF [id number] 18:00:00 Test Item Value Reference Range Comments THYROID STIMULATING HORMONE (BEAKER) (test 1.47 uIU/mL 0.35-4.94 msvo=987) [id number] 17:35:00 Test Item Value Reference Range Comments MAGNESIUM (BEAKER) (test bauf=175) 2.4 mg/dL 1.6-2.6 Fasting lipid panelBASIC METABOLIC [id number] 17:35:00 Test Item Value Reference Range Comments SODIUM (BEAKER) (test 139 meq/L 136-145 eqjh=259) POTASSIUM (BEAKER) (test 3.9 meq/L 3.5-5.1 soxk=930) CHLORIDE (BEAKER) (test 105 meq/L 98-107 vrme=552) CO2 (BEAKER) (test 27 meq/L 22-29 tuxm=893) BLOOD UREA NITROGEN 25 mg/dL 7-21 (BEAKER) (test efxu=170) CREATININE (BEAKER) (test 1.24 mg/dL 0.57-1.25 rzey=353) GLUCOSE RANDOM (BEAKER) 91 mg/dL 70-105 (test mjvd=176) CALCIUM (BEAKER) (test 9.4 mg/dL 8.4-10.2 yaqg=003) EGFR (BEAKER) (test 41 mL/min/1.73 sq m ESTIMATED GFR IS NOT wzbc=8667) ACCURATE CREATININE CLEARANCE IN PREDICTING GLOMERULAR FILTRATION RATE. ESTIMATED GFR IS NOT APPLICABLE FOR DIALYSIS PATIENTS. Fasting lipid panelLIPID [id number] 17:35:00 Test Item Value Reference Range Comments TRIGLYCERIDES (BEAKER) (test gbmy=221) 81 mg/dL CHOLESTEROL (BEAKER) (test tfaa=246) 224 mg/dL HDL CHOLESTEROL (BEAKER) (test wrgx=275) 96 mg/dL LDL CHOLESTEROL CALCULATED (BEAKER) (test 112 mg/dL gzkq=594) Triglyceride Reference Range: Low Risk <150 Borderline 150- 199 High Risk 200-499 Very High Risk >=500Cholesterol Reference Range: Low Risk <200 Borderline 200-239 High Risk > 240HDL Cholesterol Reference Range: Low Risk >=60 High Risk <40LDL Cholesterol Reference Range: Optimal <100 Near Optimal 100-129 Borderline 130-159 High 160-189 Very High >=190 Fasting lipid panelHEPATIC FUNCTION [id number] 17:35:00 Test Item Value Reference Range Comments TOTAL PROTEIN (BEAKER) (test lqmu=525) 7.7 gm/dL 6.0-8.3 ALBUMIN (BEAKER) (test pzaa=1685) 3.9 g/dL 3.5-5.0 BILIRUBIN TOTAL (BEAKER) (test maty=362) 1.1 mg/dL 0.2-1.2 BILIRUBIN DIRECT (BEAKER) (test xlpf=423) 0.5 mg/dL 0.1-0.5 ALKALINE PHOSPHATASE (BEAKER) (test pkrh=887) 120 U/L 40-150 AST (SGOT) (BEAKER) (test hplf=483) 19 U/L 5-34 ALT (SGPT) (BEAKER) (test inry=524) 19 U/L 6-55 Fasting lipid [id number] 17:24:00 Test Item Value Reference Range Comments PARTIAL THROMBOPLASTIN TIME (BEAKER) (test 37.0 seconds 22.5-36.0 iulz=386) Prior to initiating heparinPROTHROMBIN TIME/[id number] 17:23:00 Test Item Value Reference Range Comments PROTIME (BEAKER) (test bzzt=314) 14.3 seconds 11.7-14.7 INR (BEAKER) (test gfsh=446) 1.1 <=5.9 RECOMMENDED COUMADIN/WARFARIN INR THERAPY RANGESSTANDARD DOSE: 2.0 - 3.0 Includes: PROPHYLAXIS forvenous thrombosis, systemic embolization; TREATMENT for venous thrombosis and/or pulmonary embolus.HIGH RISK: Target INR is 2.5-3.5 for patients with mechanical heart valves.Prior to initiating [id number] 17:23:00 Test Item Value Reference Range Comments PARTIAL THROMBOPLASTIN TIME (BEAKER) (test 36.6 seconds 22.5-36.0 ccdy=107) Prior to initiating heparinCBC W/PLT COUNT & AUTO [id number] 17: 20:00 Test Item Value Reference Range Comments WHITE BLOOD CELL COUNT (BEAKER) (test ganb=688) 6.1 K/ L 4.0-10.0 RED BLOOD CELL COUNT (BEAKER) (test bkgk=604) 3.72 M/ L 4.00-5.00 HEMOGLOBIN (BEAKER) (test bnaj=054) 12.4 GM/DL 12.0-15.0 HEMATOCRIT (BEAKER) (test trgs=929) 37.4 % 36.0-45.0 MEAN CORPUSCULAR VOLUME (BEAKER) (test uucd=313) 101.0 fL 82.0-99.0 MEAN CORPUSCULAR HEMOGLOBIN (BEAKER) (test 33.5 pg 27.0-33.0 tvls=431) MEAN CORPUSCULAR HEMOGLOBIN CONC (BEAKER) (test 33.2 GM/DL 32.0-36.0 yooc=259) RED CELL DISTRIBUTION WIDTH (BEAKER) (test 13.5 % 10.3-14.2 ecik=388) PLATELET COUNT (BEAKER) (test vfev=809) 219 K/CU MM 150-430 MEAN PLATELET VOLUME (BEAKER) (test ciwj=318) 7.0 fL 6.5-10.5 NUCLEATED RED BLOOD CELLS (BEAKER) (test 0 /100 WBC 0-0 gdtm=735) NEUTROPHILS RELATIVE PERCENT (BEAKER) (test 51 % zywr=687) LYMPHOCYTES RELATIVE PERCENT (BEAKER) (test 33 % zncx=437) MONOCYTES RELATIVE PERCENT (BEAKER) (test 10 % xedn=838) EOSINOPHILS RELATIVE PERCENT (BEAKER) (test 5 % ekfn=609) BASOPHILS RELATIVE PERCENT (BEAKER) (test 1 % nkju=399) NEUTROPHILS ABSOLUTE COUNT (BEAKER) (test 3.09 K/ L 1.80-8.00 cudn=131) LYMPHOCYTES ABSOLUTE COUNT (BEAKER) (test 1.99 K/ L 1.48-4.50 lzzd=861) MONOCYTES ABSOLUTE COUNT (BEAKER) (test 0.62 K/ L 0.00-1.30 toej=075) EOSINOPHILS ABSOLUTE COUNT (BEAKER) (test 0.31 K/ L 0.00-0.50 gfht=142) BASOPHILS ABSOLUTE COUNT (BEAKER) (test 0.08 K/ L 0.00-0.20 ehxz=614) PLATELET [id number] 17:16:00 Test Item Value Reference Range Comments PLATELET COUNT (BEAKER) (test acoy=025) 219 K/CU MM 150-430 BASIC METABOLIC [id number] 04:55:00 Test Item Value Reference Range Comments SODIUM (BEAKER) (test 141 meq/L 136-145 gcnp=063) POTASSIUM (BEAKER) (test 3.3 meq/L 3.5-5.1 afsm=546) CHLORIDE (BEAKER) (test 104 meq/L 98-107 yvbs=040) CO2 (BEAKER) (test 28 meq/L 22-29 gbrz=431) BLOOD UREA NITROGEN 14 mg/dL 7-21 (BEAKER) (test divf=755) CREATININE (BEAKER) (test 0.80 mg/dL 0.57-1.25 atui=470) GLUCOSE RANDOM (BEAKER) 97 mg/dL 70-105 (test zyvf=812) CALCIUM (BEAKER) (test 8.9 mg/dL 8.4-10.2 wijv=396) EGFR (BEAKER) (test 68 mL/min/1.73 sq m ESTIMATED GFR IS NOT ohlq=4930) ACCURATE CREATININE CLEARANCE IN PREDICTING GLOMERULAR FILTRATION RATE. ESTIMATED GFR IS NOT APPLICABLE FOR DIALYSIS PATIENTS. CBC (HEMOGRAM ONLY)2016-10-03 04:47:00 Test Item Value Reference Range Comments WHITE BLOOD CELL COUNT (BEAKER) (test oimj=907) 7.8 K/ L 4.0-10.0 RED BLOOD CELL COUNT (BEAKER) (test jwvp=278) 3.12 M/ L 4.00-5.00 HEMOGLOBIN (BEAKER) (test ijec=632) 11.2 GM/DL 12.0-15.0 HEMATOCRIT (BEAKER) (test uwoh=584) 32.5 % 36.0-45.0 MEAN CORPUSCULAR VOLUME (BEAKER) (test xpeu=925) 104.0 fL 82.0-99.0 MEAN CORPUSCULAR HEMOGLOBIN (BEAKER) (test 35.8 pg 27.0-33.0 qupr=570) MEAN CORPUSCULAR HEMOGLOBIN CONC (BEAKER) (test 34.4 GM/DL 32.0-36.0 hilv=729) RED CELL DISTRIBUTION WIDTH (BEAKER) (test 12.8 % 10.3-14.2 vibp=166) PLATELET COUNT (BEAKER) (test sbbd=573) 190 K/CU MM 150-430 MEAN PLATELET VOLUME (BEAKER) (test ukpb=412) 7.4 fL 6.5-10.5 NUCLEATED RED BLOOD CELLS (BEAKER) (test 0 /100 WBC 0-0 igjl=287) [id number] 04:41:00 Test Item Value Reference Range Comments PROTIME (BEAKER) (test mucy=878) 13.1 seconds 11.7-14.7 INR (BEAKER) (test qibd=746) 1.0 <=5.9 PARTIAL THROMBOPLASTIN TIME (BEAKER) (test 28.1 seconds 22.5-36.0 qqwz=581) RECOMMENDED COUMADIN/WARFARIN INR THERAPY RANGESSTANDARD DOSE: 2.0 - 3.0 Includes: PROPHYLAXIS forvenous thrombosis, systemic embolization; TREATMENT for venous thrombosis and/or pulmonary embolus.HIGH RISK: Target INR is 2.5-3.5 for patients with mechanical heart valves.CREATINE KINASE (CK), TOTAL AND [id number] 04:53:00 Test Item Value Reference Range Comments CREATINE KINASE TOTAL (BEAKER) (test uikt=711) 36 U/L 29-200 CREATINE KINASE-MB (BEAKER) (test ahvx=920) 1.6 ng/mL 0.0-6.6 CREATINE KINASE-MB INDEX (BEAKER) (test ukzr=115) 4.4 % Effective 06/14/2014: CK-MB Reference Range ChangeNew: 0.0-6.6 Previous: 0.0- 4.9CK-MB Reference Range:<6.7 Normal6.7-10.0 Borderline>10.0 AbnormalTROPONIN [id number] 04:53:00 Test Item Value Reference Range Comments TROPONIN I (BEAKER) (test wteg=505) 0.03 ng/mL 0.00-0.03 Effective 06/14/2014: Reference Range [...] acute neurological disease, and persistent tachyarrhythmia.BASIC METABOLIC [id number] 04:46:00 Test Item Value Reference Range Comments SODIUM (BEAKER) (test 139 meq/L 136-145 owuw=406) POTASSIUM (BEAKER) (test 3.7 meq/L 3.5-5.1 xoxa=385) CHLORIDE (BEAKER) (test 104 meq/L 98-107 ifvt=076) CO2 (BEAKER) (test 27 meq/L 22-29 zzqr=310) BLOOD UREA NITROGEN 14 mg/dL 7-21 (BEAKER) (test jkvp=852) CREATININE (BEAKER) (test 0.82 mg/dL 0.57-1.25 ndjq=623) GLUCOSE RANDOM (BEAKER) 102 mg/dL 70-105 (test rotv=406) CALCIUM (BEAKER) (test 9.1 mg/dL 8.4-10.2 ryij=804) EGFR (BEAKER) (test 66 mL/min/1.73 sq m ESTIMATED GFR IS NOT nrqu=1274) ACCURATE CREATININE CLEARANCE IN PREDICTING GLOMERULAR FILTRATION RATE. ESTIMATED GFR IS NOT APPLICABLE FOR DIALYSIS PATIENTS. PT/[id number] 04:41:00 Test Item Value Reference Range Comments PROTIME (BEAKER) (test bwah=549) 13.5 seconds 11.7-14.7 INR (BEAKER) (test tixj=283) 1.0 <=5.9 PARTIAL THROMBOPLASTIN TIME (BEAKER) (test 33.1 seconds 22.5-36.0 wxfc=939) RECOMMENDED COUMADIN/WARFARIN INR THERAPY RANGESSTANDARD DOSE: 2.0 - 3.0 Includes: PROPHYLAXIS forvenous thrombosis, systemic embolization; TREATMENT for venous thrombosis and/or pulmonary embolus.HIGH RISK: Target INR is 2.5-3.5 for patients with mechanical heart valves.CBC (HEMOGRAM ONLY)2016-10-02 04:33:00 Test Item Value Reference Range Comments WHITE BLOOD CELL COUNT (BEAKER) (test krmr=994) 9.4 K/ L 4.0-10.0 RED BLOOD CELL COUNT (BEAKER) (test gkas=491) 3.07 M/ L 4.00-5.00 HEMOGLOBIN (BEAKER) (test ztxm=765) 11.0 GM/DL 12.0-15.0 HEMATOCRIT (BEAKER) (test iluv=018) 31.9 % 36.0-45.0 MEAN CORPUSCULAR VOLUME (BEAKER) (test qqhp=738) 104.0 fL 82.0-99.0 MEAN CORPUSCULAR HEMOGLOBIN (BEAKER) (test 36.0 pg 27.0-33.0 nyvg=359) MEAN CORPUSCULAR HEMOGLOBIN CONC (BEAKER) (test 34.6 GM/DL 32.0-36.0 ummb=081) RED CELL DISTRIBUTION WIDTH (BEAKER) (test 12.7 % 10.3-14.2 plzo=722) PLATELET COUNT (BEAKER) (test jjay=495) 205 K/CU MM 150-430 MEAN PLATELET VOLUME (BEAKER) (test vavf=252) 7.3 fL 6.5-10.5 NUCLEATED RED BLOOD CELLS (BEAKER) (test 0 /100 WBC 0-0 gyak=004) 0.00TSH/FREE T4 IF [id number] 19:30:00 Test Item Value Reference Range Comments THYROID STIMULATING HORMONE (BEAKER) (test 0.43 uIU/mL 0.35-4.94 ztsb=587) CREATINE KINASE (CK), TOTAL AND [id number] 19:14:00 Test Item Value Reference Range Comments CREATINE KINASE TOTAL (BEAKER) (test vhup=864) 53 U/L 29-200 CREATINE KINASE-MB (BEAKER) (test bnve=509) 2.6 ng/mL 0.0-6.6 CREATINE KINASE-MB INDEX (BEAKER) (test evtt=620) 4.9 % Effective 06/14/2014: CK-MB Reference Range ChangeNew: 0.0-6.6 Previous: 0.0- 4.9CK-MB Reference Range:<6.7 Normal6.7-10.0 Borderline>10.0 AbnormalTROPONIN [id number] 19:14:00 Test Item Value Reference Range Comments TROPONIN I (BEAKER) (test shrx=525) 0.01 ng/mL 0.00-0.03 Effective 06/14/2014: Reference Range [...] renalfailure, acidosis, acute neurological disease, and persistent tachyarrhythmia.[id number] 15:20: 00 Test Item Value Reference Range Comments MAGNESIUM (BEAKER) (test zcws=685) 1.9 mg/dL 1.6-2.6 BASIC METABOLIC [id number] 15:20:00 Test Item Value Reference Range Comments SODIUM (BEAKER) (test 141 meq/L 136-145 iuoz=683) POTASSIUM (BEAKER) (test 3.9 meq/L 3.5-5.1 yyeq=722) CHLORIDE (BEAKER) (test 108 meq/L 98-107 afmb=766) CO2 (BEAKER) (test 25 meq/L 22-29 gmrs=176) BLOOD UREA NITROGEN 14 mg/dL 7-21 (BEAKER) (test yuos=485) CREATININE (BEAKER) (test 0.84 mg/dL 0.57-1.25 ergg=160) GLUCOSE RANDOM (BEAKER) 130 mg/dL 70-105 (test ebbb=856) CALCIUM (BEAKER) (test 8.8 mg/dL 8.4-10.2 mfzo=093) EGFR (BEAKER) (test 64 mL/min/1.73 sq m ESTIMATED GFR IS NOT zwsm=9305) ACCURATE CREATININE CLEARANCE IN PREDICTING GLOMERULAR FILTRATION RATE. ESTIMATED GFR IS NOT APPLICABLE FOR DIALYSIS PATIENTS. CBC (HEMOGRAM ONLY)2016-10-01 14:52:00 Test Item Value Reference Range Comments WHITE BLOOD CELL COUNT (BEAKER) (test lyks=817) 10.1 K/ L 4.0-10.0 RED BLOOD CELL COUNT (BEAKER) (test rmiv=321) 3.40 M/ L 4.00-5.00 HEMOGLOBIN (BEAKER) (test gsty=180) 11.9 GM/DL 12.0-15.0 HEMATOCRIT (BEAKER) (test vsxe=131) 34.6 % 36.0-45.0 MEAN CORPUSCULAR VOLUME (BEAKER) (test vfbu=817) 102.0 fL 82.0-99.0 MEAN CORPUSCULAR HEMOGLOBIN (BEAKER) (test 35.1 pg 27.0-33.0 trwz=278) MEAN CORPUSCULAR HEMOGLOBIN CONC (BEAKER) (test 34.5 GM/DL 32.0-36.0 seoe=680) RED CELL DISTRIBUTION WIDTH (BEAKER) (test 13.5 % 10.3-14.2 ocsk=193) PLATELET COUNT (BEAKER) (test euxv=780) 204 K/CU MM 150-430 MEAN PLATELET VOLUME (BEAKER) (test nsmo=537) 7.4 fL 6.5-10.5 NUCLEATED RED BLOOD CELLS (BEAKER) (test 0 /100 WBC 0-0 arpx=492) 0.00BASIC METABOLIC [id number] 11:00:00 Test Item Value Reference Range Comments SODIUM (BEAKER) (test 142 meq/L 136-145 wzjf=425) POTASSIUM (BEAKER) (test 4.5 meq/L 3.5-5.1 slin=855) CHLORIDE (BEAKER) (test 103 meq/L 98-107 crzx=147) CO2 (BEAKER) (test 28 meq/L 22-29 yows=430) BLOOD UREA NITROGEN 28 mg/dL 7-21 (BEAKER) (test vlyr=803) CREATININE (BEAKER) (test 1.04 mg/dL 0.57-1.25 nvyu=050) GLUCOSE RANDOM (BEAKER) 98 mg/dL 70-105 (test vfod=855) CALCIUM (BEAKER) (test 9.8 mg/dL 8.4-10.2 zigv=874) EGFR (BEAKER) (test 50 mL/min/1.73 sq m ESTIMATED GFR IS NOT kauv=4042) ACCURATE CREATININE CLEARANCE IN PREDICTING GLOMERULAR FILTRATION RATE. ESTIMATED GFR IS NOT APPLICABLE FOR DIALYSIS PATIENTS. CBC W/PLT COUNT & AUTO [id number] 10:59:00 Test Item Value Reference Range Comments WHITE BLOOD CELL COUNT (BEAKER) (test qdvy=030) 7.0 K/ L 4.0-10.0 RED BLOOD CELL COUNT (BEAKER) (test pucs=594) 3.77 M/ L 4.00-5.00 HEMOGLOBIN (BEAKER) (test vaxf=545) 13.2 GM/DL 12.0-15.0 HEMATOCRIT (BEAKER) (test dzbq=767) 38.5 % 36.0-45.0 MEAN CORPUSCULAR VOLUME (BEAKER) (test dgeq=844) 102.0 fL 82.0-99.0 MEAN CORPUSCULAR HEMOGLOBIN (BEAKER) (test 34.9 pg 27.0-33.0 sxkf=390) MEAN CORPUSCULAR HEMOGLOBIN CONC (BEAKER) (test 34.2 GM/DL 32.0-36.0 csnn=785) RED CELL DISTRIBUTION WIDTH (BEAKER) (test 13.6 % 10.3-14.2 tigt=588) PLATELET COUNT (BEAKER) (test vhee=701) 233 K/CU MM 150-430 MEAN PLATELET VOLUME (BEAKER) (test hcsq=606) 7.3 fL 6.5-10.5 NUCLEATED RED BLOOD CELLS (BEAKER) (test 0 /100 WBC 0-0 aksc=059) NEUTROPHILS RELATIVE PERCENT (BEAKER) (test 60 % aamk=700) LYMPHOCYTES RELATIVE PERCENT (BEAKER) (test 27 % qmlt=410) MONOCYTES RELATIVE PERCENT (BEAKER) (test 9 % aomu=654) EOSINOPHILS RELATIVE PERCENT (BEAKER) (test 3 % hjvr=476) BASOPHILS RELATIVE PERCENT (BEAKER) (test 1 % vfby=365) NEUTROPHILS ABSOLUTE COUNT (BEAKER) (test 4.20 K/ L 1.80-8.00 fxgh=405) LYMPHOCYTES ABSOLUTE COUNT (BEAKER) (test 1.92 K/ L 1.48-4.50 gzol=381) MONOCYTES ABSOLUTE COUNT (BEAKER) (test 0.60 K/ L 0.00-1.30 wzrj=245) EOSINOPHILS ABSOLUTE COUNT (BEAKER) (test 0.23 K/ L 0.00-0.50 uwxd=919) BASOPHILS ABSOLUTE COUNT (BEAKER) (test 0.07 K/ L 0.00-0.20 jqyf=495) 0.00PT/[id number] 10:58:00 Test Item Value Reference Range Comments PROTIME (BEAKER) (test rzoo=704) 12.7 seconds 11.7-14.7 INR (BEAKER) (test lvrd=182) 1.0 <=5.9 PARTIAL THROMBOPLASTIN TIME (BEAKER) (test 29.7 seconds 22.5-36.0 kuff=472) RECOMMENDED COUMADIN/WARFARIN INR THERAPY RANGESSTANDARD DOSE: 2.0 - 3.0 Includes: PROPHYLAXIS forvenous thrombosis, systemic embolization; TREATMENT for venous thrombosis and/or pulmonary embolus.HIGH RISK: Target INR is 2.5-3.5 for patients with mechanical heart valves.
[2018-10-05 00:51] LABS: Protime INR 1.22
[2018-10-05 00:57] LABS: Absolute Lymphocytes (CBC) 4.2 K/uL (0.7-4.9); Absolute Monocytes 1.4 K/uL (0.1-1.3); Basophils % 0.8 % (0-1.3); Eosinophils % 1.4 % (0-4.4); Lymphocytes % 62.7 % (15.3-44.8); MPV 7.8 fL (7.6-11.3); Monocytes % 20.4 % (3.3-12.3); RBC Red Blood Cell Count 2.67 M/uL (3.86-4.86)
[2018-10-05 01:03] LABS: Albumin 3.6 g/dL (3.4-5.0); Bilirubin Direct 0.3 mg/dL (0-0.2); Bilirubin Total 0.8 mg/dL (0.2-1.0); Magnesium 2.7 mg/dL (1.8-2.4); Potassium 4.4 mmol/L (3.5-5.1); Protein, Total 6.5 g/dL (6.4-8.2); Troponin (Emerg Dept Use Only) 0.02 ng/mL (0.0-0.045)
[2018-10-05 01:13] LABS: Anisocytosis 2+; Blood Morphology Comment NOTED (NOT SEEN); Platelets, Giant MODERATE; Polychromasia SLIGHT
[2018-10-05 01:15] LABS: Platelet Estimate INCR
--- NOTE | 2018-10-05 01:34 | ER ---
Nurse's Notes [facility] Name: Nikky Ocampo Age: 88 yrs Sex: Female : 1930 Arrival Date: 10/04/2018 Time: 23:57 Bed 4 Private MD: Hernan Richmond E Diagnosis: Unspecified combined systolic (congestive) and diastolic (congestive) heart failure Presentation: 10/05 00:00 Presenting complaint: EMS states: Patient was at home, got up from chair to take lp1 medication and became increasingly short of breath; States feeling better after nebulizer treatment; Hx of CHF. Transition of care: patient was not received from another setting of care. Onset of symptoms was October 04, 2018 at 23:00. Risk Assessment: Do you want to hurt yourself or someone else? Patient reports no desire to harm self or others. Initial Sepsis Screen: Does the patient meet any 2 criteria? No. Patient's initial sepsis screen is negative. Does the patient have a suspected source of infection? No. Patient's initial sepsis screen is negative. Care prior to arrival: IV initiated. 20 GA, in the right forearm, Oxygen administered. via nasal cannula. 00:00 Method Of Arrival: EMS: [facility] lp1 00:00 Acuity: TASIA 2 lp1 Historical: - Allergies: :32 Codeine; lp1 - Home Meds: :32 tramadol 50 mg Oral tab 1 tab once a day [Active]; allopurinol 300 mg Oral tab 1 tab lp1 once daily [Active]; levothyroxine 50 mcg tab 1 tab once daily [Active]; digoxin 125 mcg Oral tab 1 tab Every other day [Active]; Eliquis 5 mg Oral tab 0.5 tab 2 times per day [Active]; metoprolol succinate 25 mg Oral Tb24 twice a day [Active]; Tasigna 150 mg oral cap every 12 hours [Active]; trimethoprim 100 mg Oral tab once daily [Active]; furosemide 20 mg Oral tab 1 tab once daily [Active]; gabapentin 400 mg Oral cap 2 cap 4x per day [Active]; montelukast 10 mg oral tab 1 tab once daily [Active]; - PMHx: 01:32 CHF; Chronic leukemia; colon cancer; Hypertension; Pacemaker; lp1 - PSHx: 01:32 Hysterectomy; Cholecystectomy; lp1 - Immunization history:: Adult Immunizations up to date. - Social history:: Smoking status: Patient/guardian denies using tobacco, the patient reports quitting approximately 25 years ago. - Ebola Screening: : No symptoms or risks identified at this time. Screenin:34 Abuse screen: Denies threats or abuse. Denies injuries from another. Nutritional lp1 screening: No deficits noted. Tuberculosis screening: No symptoms or risk factors identified. Fall Risk Total [place] Fall Scale indicates High Risk Score (45 or more points). Fall prevention measures have been instituted. Side Rails Up X 2 As available patient and family educated on Fall Prevention Program and Strategies. Assessment: 00:15 General: Appears uncomfortable, slender, Behavior is calm. Pain: Denies pain. Neuro: lp1 Level of Consciousness is awake, alert, obeys commands, Oriented to person, place, situation. Cardiovascular: Patient's skin is warm and dry. Rhythm is ventricular pacer. Respiratory: Reports shortness of breath Airway is patent Trachea midline Respiratory effort is even, unlabored, Respiratory pattern is regular, Breath sounds are diminished bilaterally. Onset: The symptoms/episode began/occurred just prior to arrival, the patient has mild shortness of breath. GI: Abdomen is flat. : No signs and/or symptoms were reported regarding the genitourinary system. EENT: No signs and/or symptoms were reported regarding the EENT system. Derm: Skin is fragile, is thin, Skin is dry, Skin is pink. Musculoskeletal: Circulation, motion, and sensation intact. 01:15 Reassessment: Patient appears in no apparent distress at this time. Patient and/or lp1 family updated on plan of care and expected duration. Pain level reassessed. Patient states feeling better. 02:12 Reassessment: Patient appears in no apparent distress at this time. No changes from ak1 previously documented assessment. Patient is alert, oriented x 3, equal unlabored respirations, skin warm/dry/pink. bedside commode placed in pt room. Dr. Morton at bedside for admission. Vital Signs: 00:15 BP 121 / 61; Pulse 88; Resp 22; Temp 98.1(O); Pulse Ox 88% on R/A; Weight 56.7 kg; lp1 Height 5 ft. 5 in. (165.10 cm); Pain 0/10; 00:16 Pulse Ox 93% on 2 lpm NC; lp1 01:00 BP 124 / 58; Pulse 82; Resp 23; Pulse Ox 93% on 2 lpm NC; lp1 02:12 BP 124 / 51; Pulse 91; Resp 20; Pulse Ox 93% on 2 lpm NC; ak1 02:46 BP 145 / 70; Pulse 113; Resp 21; Pulse Ox 95% on 2 lpm NC; lp1 00:15 Body Mass Index 20.80 (56.70 kg, 165.10 cm) lp1 ED Course: 10/04 23:57 Patient arrived in ED. am2 23:57 Hernan Richmond MD is Private Physician. am2 0311 00:01 Gerry Uribe MD is Attending Physician. tw4 00:15 Patient has correct armband on for positive identification. Placed in gown. Bed in low lp1 position. Call light in reach. Side rails up X2. 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 Pulse ox on. NIBP on. 00:15 Arm band placed on. lp1 00:20 XRAY Chest (1 view) In Process Unspecified. EDMS 00:30 Maintain EMS IV. Dressing intact. Good blood return noted. Site clean \T\ dry. Gauge \T\ lp 1 site: 20g to R FA. 00:30 Initial lab(s) drawn, by me, sent to lab. lp1 01:10 Sandra Ngo RN is Primary Nurse. lp1 01:12 Notified ED physician of a critical lab result(s). platelets 1888, Dr. Uribe notified. ak1 01:14 Triage completed. lp1 01:32 Britany Liang MD is Hospitalizing Provider. tw4 02:40 No provider procedures requiring assistance completed. Patient admitted, IV remains in lp1 place. Administered Medications: 02:00 Drug: Lasix 40 mg Route: IVP; Site: right forearm; ak1 02:47 Follow up: Response: No adverse reaction lp1 Outcome: 01:33 Decision to Hospitalize by Provider. tw4 02:40 Condition: stable lp1 02:40 Instructed on the need for admit. 02:41 Admitted to Tele accompanied by tech, via stretcher, room 221, with oxygen, with chart, bb Report called to Oscar WILBURN 02:50 Patient left the ED. lp1 Signatures: Dispatcher [employer] EDMS Lauren Velásquez RN RN bb Sandra Ngo RN RN lp1 Annemarie Dobbins RN RN ak1 Malaika Rodriguez am2 Gerry Uribe MD MD tw4 Corrections: (The following items were deleted from the chart) 01:35 00:15 Respiratory: Airway is patent Trachea midline Respiratory effort is even, lp1 unlabored, Respiratory pattern is regular, Breath sounds are diminished bilaterally. lp1 01:36 00:15 Respiratory: Airway is patent Trachea midline Respiratory effort is even, lp1 unlabored, Respiratory pattern is regular, Breath sounds are diminished bilaterally. the patient has mild shortness of breath lp1 02:46 00:15 Cardiovascular: Patient's skin is warm and dry. lp1 lp1 02:46 00:15 Respiratory: Reports shortness of breath Airway is patent Trachea midline lp1 Respiratory effort is even, unlabored, Respiratory pattern is regular, Breath sounds are diminished bilaterally. the patient has mild shortness of breath lp1
--- NOTE | 2018-10-05 01:34 | EDPHYS ---
Physician Documentation [facility] Name: Nikky Ocampo Age: 88 yrs Sex: Female : 1930 Arrival Date: 10/04/2018 Time: 23:57 Bed 4 Private MD: Hernan Richmond E ED Physician Gerry Uribe HPI: 10/05 03:06 This 88 yrs old Female presents to ER via EMS with complaints of Respiratory tw4 Distress. 03:06 The patient has shortness of breath at rest. Onset: The symptoms/episode began/occurred tw4 today. Duration: The symptoms are continuous, and are unchanged since they started. The patient's shortness of breath is aggravated by exertion, supine position, is alleviated by rest. Associated signs and symptoms: The patient has no apparent associated signs or symptoms. Severity of symptoms: At their worst the symptoms were moderate in the emergency department the symptoms have improved. The patient has not experienced similar symptoms in the past. Historical: - Allergies: 01:32 Codeine; lp1 - Home Meds: 01:32 tramadol 50 mg Oral tab 1 tab once a day [Active]; allopurinol 300 mg Oral tab 1 tab lp1 once daily [Active]; levothyroxine 50 mcg tab 1 tab once daily [Active]; digoxin 125 mcg Oral tab 1 tab Every other day [Active]; Eliquis 5 mg Oral tab 0.5 tab 2 times per day [Active]; metoprolol succinate 25 mg Oral Tb24 twice a day [Active]; Tasigna 150 mg oral cap every 12 hours [Active]; trimethoprim 100 mg Oral tab once daily [Active]; furosemide 20 mg Oral tab 1 tab once daily [Active]; gabapentin 400 mg Oral cap 2 cap 4x per day [Active]; montelukast 10 mg oral tab 1 tab once daily [Active]; - PMHx: 01:32 CHF; Chronic leukemia; colon cancer; Hypertension; Pacemaker; lp1 - PSHx: 01:32 Hysterectomy; Cholecystectomy; lp1 - Immunization history:: Adult Immunizations up to date. - Social history:: Smoking status: Patient/guardian denies using tobacco, the patient reports quitting approximately 25 years ago. - Ebola Screening: : No symptoms or risks identified at this time. ROS: 03:06 Constitutional: Negative for fever, chills, and weight loss, Cardiovascular: Negative tw4 for chest pain, palpitations, and edema, Abdomen/GI: Negative for abdominal pain, nausea, vomiting, diarrhea, and constipation, Back: Negative for injury and pain, MS/Extremity: Negative for injury and deformity, Skin: Negative for injury, rash, and discoloration, Neuro: Negative for headache, weakness, numbness, tingling, and seizure. Exam: 03:06 Constitutional: This is a well developed, well nourished patient who is awake, alert, tw4 and in no acute distress. Head/Face: Normocephalic, atraumatic. Chest/axilla: Normal chest wall appearance and motion. Nontender with no deformity. No lesions are appreciated. Cardiovascular: Regular rate and rhythm with a normal S1 and S2. No gallops, murmurs, or rubs. Normal PMI, no JVD. No pulse deficits. 03:06 Abdomen/GI: Soft, non-tender, with normal bowel sounds. No distension or tympany. No guarding or rebound. No evidence of tenderness throughout. Back: No spinal tenderness. No costovertebral tenderness. Full range of motion. MS/ Extremity: Pulses equal, no cyanosis. Neurovascular intact. Full, normal range of motion. Neuro: Awake and alert, GCS 15, oriented to person, place, time, and situation. Cranial nerves II-XII grossly intact. Motor strength 5/5 in all extremities. Sensory grossly intact. Cerebellar exam normal. Normal gait. 03:06 Respiratory: mild respiratory distress is noted, Respirations: labored breathing, that is mild, Breath sounds: rales, are located in both bases. Vital Signs: 00:15 BP 121 / 61; Pulse 88; Resp 22; Temp 98.1(O); Pulse Ox 88% on R/A; Weight 56.7 kg; lp1 Height 5 ft. 5 in. (165.10 cm); Pain 0/10; 00:16 Pulse Ox 93% on 2 lpm NC; lp1 01:00 BP 124 / 58; Pulse 82; Resp 23; Pulse Ox 93% on 2 lpm NC; lp1 02:12 BP 124 / 51; Pulse 91; Resp 20; Pulse Ox 93% on 2 lpm NC; ak1 02:46 BP 145 / 70; Pulse 113; Resp 21; Pulse Ox 95% on 2 lpm NC; lp1 00:15 Body Mass Index 20.80 (56.70 kg, 165.10 cm) lp1 MDM: 00:01 Patient medically screened. tw4 04:08 Differential diagnosis: Anemia asthma, Bronchitis reactive airway disease, Sepsis. tw4 Antibiotic administration: Not indicated. Data reviewed: vital signs, nurses notes. Data interpreted: principal web developer: rhythm is normal sinus rhythm, Pulse oximetry: Interpretation: normal. Counseling: I had a detailed discussion with the patient and/or guardian regarding: the historical points, exam findings, and any diagnostic results supporting the discharge/admit diagnosis, lab results, radiology results. Physician consultation: Britany Liang MD regarding admission, need to come to ED to see patient, and will see patient in ED. 10/05 00:01 Order name: Basic Metabolic Panel tw4 10/05 00:01 Order name: CBC with Diff tw4 10/05 00:01 Order name: LFT's tw 10/05 00:01 Order name: Magnesium tw 10/05 00:01 Order name: NT PRO-BNP; Complete Time: 01:23 tw4 10/05 00:01 Order name: PT-INR tw4 10/05 00:01 Order name: Troponin (emerg Dept Use Only) tw4 10/05 00:01 Order name: XRAY Chest (1 view) tw4 10/05 00:01 Order name: EKG; Complete Time: 00:03 4 10/05 00:01 Order name: Cardiac monitoring; Complete Time: 01:37 10/05 00:01 Order name: EKG - Nurse/Tech; Complete Time: 01:37 10/05 00:01 Order name: IV Saline Lock; Complete Time: 01:37 10/05 01:12 Order name: Manual Differential EDMS 10/05 00:01 Order name: Labs collected and sent; Complete Time: 01:36 10/05 00:01 Order name: O2 Per Protocol; Complete Time: :36 10/05 00:01 Order name: O2 Sat Monitoring; Complete Time: :36 tw EC:06 Rate is 107 beats/min. Rhythm is regular, Normal Sinus Rhythm. QRS [place] is Normal. [place] tw4 interval is normal. QRS interval is normal. QT interval is normal. No Q waves. No ST changes noted. Clinical impression: Abnormal EKG without significant change. Interpreted by me. Reviewed by me. Administered Medications: 02:00 Drug: Lasix 40 mg Route: IVP; Site: right forearm; ak1 02:47 Follow up: Response: No adverse reaction lp1 Disposition: 10/05/18 01:33 Hospitalization ordered by Britany Liang for Inpatient Admission. Preliminary diagnosis is Unspecified combined systolic (congestive) and diastolic (congestive) heart failure. - Bed requested for Telemetry/MedSurg (Inpatient). - Status is Inpatient Admission. lp1 - Condition is Fair. - Problem is new. - Symptoms have improved. UTI on Admission? No Signatures: Dispatcher [employer] EDMS Kirstie Cates RN RN kl Sandra Ngo RN RN 1 Annemarie Dobbins RN RN hi1 Gerry rUibe MD MD tw4 Corrections: (The following items were deleted from the chart) 02:34 01:33 Hospitalization Ordered by Britany Liang MD for Inpatient Admission. Preliminary diagnosis is Unspecified combined systolic (congestive) and diastolic (congestive) heart failure. Bed requested for Telemetry/MedSurg (Inpatient). Status is Inpatient Admission. Condition is Fair. Problem is new. Symptoms have improved. UTI on Admission? No. tw4 02:50 02:34 10/05/2018 01:33 Hospitalization Ordered by Britany Liang MD for Inpatient lp1 Admission. Preliminary diagnosis is Unspecified combined systolic (congestive) and diastolic (congestive) heart failure. Bed requested for Telemetry/MedSurg (Inpatient). Status is Inpatient Admission. Condition is Fair. Problem is new. Symptoms have improved. UTI on Admission? No. kl
[2018-10-05] MEDS ORDERED: FUROSEMIDE 40 MG/4 ML VIAL ONE (02:03)
[2018-10-05 03:24] VITALS: BMI 20.5
[2018-10-05 04:29] LABS: Urine Appearance CLEAR; Urine Bilirubin NEGATIVE (NEG); Urine Blood NEGATIVE (NEG); Urine Color YELLOW; Urine Glucose NEGATIVE (NEG); Urine Protein NEGATIVE (NEG); Urine Specific Gravity <=1.005 (1.005-1.030)
[2018-10-05 04:34] LABS: Urine Microscopic Reflex NO UMIC
--- NOTE | 2018-10-05 05:29 | P.HP ---
Certification for Inpatient Patient admitted to: Observation With expected LOS: <2 Midnights Practitioner: I am a practitioner with admitting privileges, knowledge of patient current condition, hospital course, and medical plan of care. Services: Services provided to patient in accordance with Admission requirements found in Title 42 Section 412.3 of the Code of Federal Regulations Patient History Date of Service: 10/05/18 Reason for admission: acute on chronic diastolic CHF History of Present Illness: Ms Ocampo is an 88 years old woman with multiple medical problems, including COPD, CML under Procrit therapy, chronic diastolic CHF, HTN, pacemaker , who start about 1 month ago with progressive SOB. No history of chest pain, cough, nausea or vomiting. No fever or chills either. Yesterday, her SOB got worse, she was not able to do minimal exercise activity because significant dyspnea. At arrival O2 sat was 88% on RA, BP 121/61, afebrile. CXR remarkable for bilateral infiltrate consistent with CHF. Lab work shows normal WBC count, Hgb 8.8 mg/dl, platelets 1888 (about baseline), ProBNP elevated. Allergies codeine [Codeine] Adverse Reaction (Verified 10/05/18 03:24) vomiting Home medications list reviewed: Yes Home Medications: Allopurinol [Zyloprim*] 1 tab PO DAILY 10/05/18 Apixaban [Eliquis *] 1 tab PO BID 10/05/18 Digoxin [Lanoxin*] 1 tab PO SEECOM 10/05/18 Furosemide [Lasix] 20 mg PO BID 10/05/18 Gabapentin [Neurontin] 800 mg PO QID 10/05/18 Levothyroxine [Synthroid*] 1 tab PO [id number] 10/05/18 Metoprolol Succinate 1 tab PO BID 10/05/18 Montelukast [Singulair*] 1 tab PO DAILY 10/05/18 Nilotinib HCl [Tasigna] 150 mg PO SEECOM 10/05/18 Tramadol HCl [Ultram] 1 tab PO BID 10/05/18 Trimethoprim 100 mg PO DAILY 10/05/18 - Past Medical/Surgical History Has patient received pneumonia vaccine in the past: No Diabetic: No -: Chronic CHF, diastolic -: GERD -: Atrial fibrillation, chronic anti coagulation therapy -: Varicose Veins -: Peripheral Neuropathy -: CML (chronic myeloid leukemia) -: Vitamin D Deficiency -: Hypothyroidism -: Insomnia -: Hypertension -: Chronic renal disease -: Angiodysplasia of intestine with hemorrhage -: Hysterectomy -: Back surgery x2 -: Debbie -: bladder sx. -: carotid sx Psychosocial/ Personal History: Patient lives at home. - Family History Mother -: Cancer, Liver disease Father -: Cancer, Liver disease Notes: THROAT CANCER - Social History Smoking Status: Former smoker Alcohol use: No CD- Drugs: No Caffeine use: Yes Place of Residence: Home Review of Systems 10-point ROS is otherwise unremarkable Physical Examination - Vital Signs Temperature: 98.1 F Blood Pressure: 145/70 Pulse: 113 Respirations: 21 - Physical Exam General: Alert, In no apparent distress HEENT: Atraumatic, PERRLA, Mucous membr. moist/pink, EOMI, Sclerae nonicteric Neck: Supple, 2+ carotid pulse no bruit, No LAD, Without JVD or thyroid abnormality Respiratory: Diminished, Crackles/rales (bibasilar rales) Cardiovascular: Normal S1 S2, No gallops Gastrointestinal: Normal bowel sounds, No tenderness Musculoskeletal: No tenderness Integumentary: No rashes Neurological: Normal speech, Normal strength at 5/5 x4 extr, Normal tone, Normal affect Lymphatics: No axilla or inguinal lymphadenopathy - Studies Laboratory Data (last 24 hrs) 10/05/18 00:30: PT 14.3 H, INR 1.22 10/05/18 00:30: WBC 6.7, Hgb 8.8 L, Hct 27.0 L, Plt Count 1888 H* 10/05/18 00:30: Sodium 143, Potassium 4.4, BUN 20 H, Creatinine 0.83, Glucose 135 H, Magnesium 2.7 H, Total Bilirubin 0.8, AST 24, ALT 15, Alkaline Phosphatase 104 Assessment and Plan - Problems (Diagnosis) (1) Acute on chronic diastolic CHF (congestive heart failure) Current Visit: Yes Status: Acute (2) Acute kidney injury superimposed on chronic kidney disease Onset Date: 05/29/18 Current Visit: No Status: Acute (3) Acute on chronic anemia Onset Date: 09/04/18 Current Visit: No Status: Acute (4) Essential (primary) hypertension Onset Date: 09/04/18 Current Visit: No Status: Acute (5) Myelogenous leukemia, chronic Onset Date: 11/01/15 Current Visit: No Status: Chronic - Plan Will admit the patient to the hospital due to acute on chronic diastolic CHF. Continue IV lasix. last ECHO on 05/14 showing normal EF, without wall motion abnormalities. Close monitoring of body fluid balance. - Advance Directives Does patient have a Living Will: Yes Does patient have a Durable POA for Healthcare: Yes
[2018-10-05] MEDS: LEVOTHYROXINE SOD 0.05 MG TABLET PO SCH (05:46)
[2018-10-05] MEDS: ACETAMINOPHEN 500 MG TAB PO PRN (06:30)
--- NOTE | 2018-10-05 08:13 | RAD REPORT ---
EXAM DESCRIPTION: RAD - Chest Single View - 10/05/2018 12:22 am CLINICAL HISTORY: DYSPNEA Chest pain. COMPARISON: Chest Single View dated 09/03/2018; Chest Single View dated 08/24/2018; Chest Single View d ated 08/13/2018; Chest Single View dated 06/02/2018 FINDINGS: Portable technique limits examination quality. Moderate pulmonary edema is suspected slightly greater on the right. The heart is moderately enlarged in size with a multilead pacer/defibrillator device. Moderate elevation of left hemidiaphragm is see n, chronic. IMPRESSION: Moderate CHF versus volume overload pattern.
--- NOTE | 2018-10-05 08:33 | EKG ---
Test Date: 2018-10-04 Test Time: 23:00:17 Lithographing Machine Operator: JOSHUA MEASUREMENT RESULTS: Intervals: Rate: 107 [place]: 138 QRSD: 108 QT: 348 QTc: 464 Tiona: P: 81 [place]: 138 QRS: -37 T: 133 INTERPRETIVE STATEMENTS: Atrial-sensed ventricular-paced rhythm Biventricular pacemaker detected Abnormal ECG Compared to ECG 09/03/2018 15:38:58 AV dual-paced complex(es) or rhythm no longer present Electronically Signed On 10-05-18 08:32:50 CDT by Marcello Choi
[2018-10-05] MEDS: MONTELUKAST 10 MG TAB PO SCH (08:57)
[2018-10-05] MEDS: TRAMADOL HCL 50 MG TAB PO SCH ×2 (08:57→21:57)
[2018-10-05] MEDS: FUROSEMIDE 40 MG/4 ML VIAL IV SCH ×2 (08:57→17:11)
[2018-10-05] MEDS: METOPROLOL XL 25 MG TAB PO SCH ×2 (08:57→21:57)
[2018-10-05] MEDS: APIXABAN 2.5 MG TABLET PO SCH ×2 (08:58→21:57)
[2018-10-05] MEDS: GABAPENTIN 400 MG CAP PO SCH ×4 (09:00→21:56)
[2018-10-05] MEDS ORDERED: ENOXAPARIN 40 MG/0.4 ML SQ SCH (09:00)
[2018-10-05] MEDS ORDERED: GABAPENTIN 400 MG CAP PO ONE (09:24)
[2018-10-05] MEDS ORDERED: EPOETIN ALFA 20,000 UNIT/1 ML VIAL SQ ONE (13:00)
[2018-10-05] MEDS ORDERED: EPOETIN ALFA 10,000 UNIT/ML SQ ONE (13:15)
[2018-10-05] MEDS: NILOTINIB HCL 150 MG PO SCH (15:26)
--- NOTE | 2018-10-05 18:06 | PN ---
Date of Progress Note: 10/05/2018 Subjective: The patient is seen and examined. Chart reviewed and case discussed with RN and Dr. Dra bates. The patient asking for her gabapentin to be resumed. The patient reports some neuropathy i n her lower extremities, which is chronic. The patient states her breathing is better. Medications: List reviewed. Physical Examination: Vital Signs: Temperature 98.2, heart rate 66, blood pressure 120/56, respirations 18, O2 94% on 2 L via nasal cannula. General: Awake, alert, and oriented x3. Elderly female, some mild distress, frail, cachectic, BMI 2 0. CV: S1, S2. Regular rate and rhythm. Peripheral pulses weak bilaterally. Respiratory: Diminished breath sounds, some crackles heard. No wheezing or stridor. Gastrointestinal: Abdomen is soft, nontender, nondistended. Positive bowel sounds. Extremities: No clubbing, cyanosis. Trace pedal edema. Neurologic: Nonfocal. Laboratory Data: WBC 6.7, H and H 8.8 and 27, platelets 1888. Sodium 143, potassium 4.4, chloride 1 13, CO2 22, BUN 20, creatinine 0.83, glucose 135. Assessment And Plan: An 88-year-old female with: 1.[id number] diastolic heart failure. The ejection fraction from previous echocardiogram on 2017 was normal. We will continue with diuretics, Lasix IV. Monitor I's and O's. Continu e free fluid restriction. 2.Acute kidney injury on chronic kidney disease. The patient's GFR is 65. We will continue to leslie tor. Adjust Lasix dose if kidney dysfunction worsens. 3.Acute on chronic anemia. Monitor H and H. 4.Thrombocytosis. 5.Essential hypertension. 6.Chronic myelogenous leukemia, currently on treatment. Follows Dr. Jolley outpatient. 7.Deep vein thrombosis prophylaxis addressed. Code Status: Full. SA/MODL Voice ID: [id number] Report ID: [id number]
[2018-10-06] MEDS: NILOTINIB HCL 150 MG PO SCH ×2 (02:12→15:11)
[2018-10-06] MEDS: LEVOTHYROXINE SOD 0.05 MG TABLET PO SCH (06:05)
[2018-10-06 07:28] LABS: Absolute Lymphocytes (CBC) 1.3 K/uL (0.7-4.9); Absolute Monocytes 1.5 K/uL (0.1-1.3); Absolute Neutrophil 1.4 K/uL (1.8-8.0); Basophils % 1.8 % (0-1.3); Eosinophils % 0.3 % (0-4.4); Lymphocytes % 30.4 % (15.3-44.8); MPV 7.7 fL (7.6-11.3); Monocytes % 35.3 % (3.3-12.3); RBC Red Blood Cell Count 2.57 M/uL (3.86-4.86)
[2018-10-06 07:36] LABS: Potassium 4.6 mmol/L (3.5-5.1)
[2018-10-06] MEDS ORDERED: PNEUMOCOCCAL VACCINE 0.5 ML IMVAC ONE (08:00)
[2018-10-06] MEDS ORDERED: DIGOXIN 0.125 MG TABLET PO SCH (09:00)
[2018-10-06] MEDS ORDERED: TRIMETHOPRIM 100 MG PO SCH (09:00)
[2018-10-06] MEDS: FUROSEMIDE 40 MG/4 ML VIAL IV SCH ×2 (09:00→16:54)
[2018-10-06] MEDS: MONTELUKAST 10 MG TAB PO SCH (09:24)
[2018-10-06] MEDS: GABAPENTIN 400 MG CAP PO SCH ×3 (09:24→16:54)
[2018-10-06] MEDS: METOPROLOL XL 25 MG TAB PO SCH (09:24)
[2018-10-06] MEDS: APIXABAN 2.5 MG TABLET PO SCH (09:24)
[2018-10-06] MEDS: TRAMADOL HCL 50 MG TAB PO SCH (09:25)
[2018-10-06] MEDS: ACETAMINOPHEN 500 MG TAB PO PRN (11:53)
[2018-10-06 12:50] VITALS: O2SAT 93
--- NOTE | 2018-10-06 15:35 | P.SSS ---
Patient History Date of Service: 10/06/18 Reason for admission: acute on chronic diastolic CHF History of Present Illness: Ms Ocampo is an 88 years old woman with multiple medical problems, including COPD, CML under Procrit therapy, chronic diastolic CHF, HTN, pacemaker , who start about 1 month ago with progressive SOB. No history of chest pain, cough, nausea or vomiting. No fever or chills either. Yesterday, her SOB got worse, she was not able to do minimal exercise activity because significant dyspnea. At arrival O2 sat was 88% on RA, BP 121/61, afebrile. CXR remarkable for bilateral infiltrate consistent with CHF. Lab work shows normal WBC count, Hgb 8.8 mg/dl, platelets 1888 (about baseline), ProBNP elevated. Allergies codeine [Codeine] Adverse Reaction (Verified 10/05/18 03:24) vomiting Home Medications: Allopurinol [Zyloprim*] 1 tab PO DAILY 10/05/18 Apixaban [Eliquis *] 1 tab PO BID 10/05/18 Digoxin [Lanoxin*] 1 tab PO SEECOM 10/05/18 Furosemide [Lasix] 20 mg PO BID 10/05/18 Gabapentin [Neurontin] 800 mg PO QID 10/05/18 Levothyroxine [Synthroid*] 1 tab PO [id number] 10/05/18 Metoprolol Succinate 1 tab PO BID 10/05/18 Montelukast [Singulair*] 1 tab PO DAILY 10/05/18 Nilotinib HCl [Tasigna] 150 mg PO SEECOM 10/05/18 Tramadol HCl [Ultram] 1 tab PO BID 10/05/18 Trimethoprim 100 mg PO DAILY 10/05/18 Cyclosporine [Restasis] 1 drop EACH EYE BID 10/06/18 - Past Medical/Surgical History Has patient received pneumonia vaccine in the past: No Diabetic: No -: Chronic CHF, diastolic -: GERD -: Atrial fibrillation, chronic anti coagulation therapy -: Varicose Veins -: Peripheral Neuropathy -: CML (chronic myeloid leukemia) -: Vitamin D Deficiency -: Hypothyroidism -: Insomnia -: Hypertension -: Chronic renal disease -: Angiodysplasia of intestine with hemorrhage -: Hysterectomy -: Back surgery x2 -: Debbie -: bladder sx. -: carotid sx Psychosocial/ Personal History: Patient lives at home. - Family History Mother -: Cancer, Liver disease Father -: Cancer, Liver disease Notes: THROAT CANCER - Social History Smoking Status: Former smoker Alcohol use: No CD- Drugs: No Caffeine use: Yes Place of Residence: Home Review of Systems 10-point ROS is otherwise unremarkable Physical Examination - Vital Signs Temperature: 97.5 F Blood Pressure: 146/66 Pulse: 60 Respirations: 16 Pulse Ox (%): 94 - Physical Exam General: Alert, In no apparent distress, Oriented x3 HEENT: Atraumatic, PERRLA, Mucous membr. moist/pink, EOMI, Sclerae nonicteric Neck: Supple, 2+ carotid pulse no bruit, No LAD, Without JVD or thyroid abnormality Respiratory: Dull Cardiovascular: Regular rate/rhythm, Normal S1 S2 Gastrointestinal: Normal bowel sounds, No tenderness Musculoskeletal: No tenderness Integumentary: No rashes Neurological: Normal gait, Normal speech, Normal strength at 5/5 x4 extr, Normal tone, Normal affect Lymphatics: No axilla or inguinal lymphadenopathy - Diagnosis (Problem(s)) (1) Acute on chronic diastolic CHF (congestive heart failure) Current Visit: Yes Status: Acute (2) CKD (chronic kidney disease) stage 4, GFR 15-29 ml/min Onset Date: 11/01/15 Current Visit: No Status: Chronic (3) Myelogenous leukemia, chronic Onset Date: 11/01/15 Current Visit: No Status: Chronic (4) Thrombocytosis Onset Date: 04/14/18 Current Visit: No Status: Chronic (5) Dyspnea Onset Date: 11/01/15 Current Visit: No Status: Inactive Qualifiers: Dyspnea type: dyspnea on exertion Qualified Code(s): R06.09 - Other forms of dyspnea Treatment Summary: Patient was admitted for shortness of breath, secondary to acute on chronic diastolic heart failure. An ECHO was not repeated as she had one in April of 2018. She was diuresed with IV lasix. She has a history of CML, for which she is currently on treatment. Dr. Jolley is her oncologist outpatient. Case was discussed with her via telephone. Patient received one dose of procrit while in the hospital. Patient also has a hx of thrombocytosis for which she was previously taking hydroxyurea but discontinued as she was able to tolerate it well. Per Hem/Onc, they will continue to monitor platelet count as outpatient. She will need to call their office and schedule an appointment for a lab visit in 1 week. Patient aware of this. Her creatinine was stable prior to discharge. Her H&H was monitored and she did not receive any transfusion this hospitalization. per Hem/Onc, would avoid transfusion if patient asymptomatic. No evidence of active bleeding noted, respiratory status was back to baseline , physical exam unremarkable. Therefore, no transfusion this visit. Patient will repeat blood work in 1 week with Onc as an outpatient. Patient aware. Her blood pressure remained stable otherwise and she remained hemodynamically stable otherwise. Prior to discharge, her breathing had improved and she was back to baseline. She was on 2L oxygen prior to discharge, which is what she is on at home. She was AOx3, in no acute distress and was working well with PT. Ambulating normally and tolerating an oral diet. She will follow up with Dr. Jolley in 1-2 weeks and a lab visit next friday. patient is aware of this. - Disposition Discharge Date: 10/06/18 Disposition: ROUTINE DISCHARGE Condition: GOOD Patient Discharge Instructions: Please follow up at Dr. Jolley's office for a lab visit next friday. Please call their office and make this appointemnt. Please follow up with your Primary care physician in 2-3 days. Please return to the Emergency room for worsening symptoms. Diet: Regular Activity: Ad pallavi Time Spent Managing Pts Care (In Minutes): 55
[2018-10-06 17:47] VITALS: BP 122/58; TEMP 97.1
[2018-10-06] MEDS ORDERED: POLYVINYL ALCOHOL 1.4% 15 ML EACH EYE SCH (21:00)
== END 2018-10-06 18:04 | disposition home health service (06) ==
LOC: ER 23:52 → ERHOLD 10-05 02:19 → 2ND 10-05 02:42
PROVIDERS: ADMIT Internal Medicine; ATTEND Internal Medicine
DX: I13.0 Hypertensive heart and chronic kidney disease with heart failure and stage 1 through stage 4 chronic kidney disease, or unspecified chronic kidney disease (principal); I50.33 Acute on chronic diastolic (congestive) heart failure; N18.4 Chronic kidney disease, stage 4 (severe); D47.3 Essential (hemorrhagic) thrombocythemia; C92.10 Chronic myeloid leukemia, BCR/ABL-positive, not having achieved remission; E03.9 Hypothyroidism, unspecified
CPT/HCPCS: 93005; 85025 ×2; 80048 ×2; 36415 ×2; 83735; 85610; 80076; 81003; 84484; 83880; 71045; 97110; 97116; 97162; 94760 ×4; 96374; 99285; J1940 ×3; J0885; G0378 ×2; Q4081

== ENCOUNTER 2018-11-30 09:35 | Inpatient (IN) | payer OTHER ==
--- OUTSIDE RECORDS SUMMARY | 2018-11-30 09:38 | XMS REPORT | Clinical Summary ---
:1930 Author Organization [facility] Address [address] [place] [address] Care Team Providers Name Role Phone Hernan [...] tablet mouth every other day. apixaban (ELIQUIS) 2.5 Take 2.5 mg by 0 Active mg Tab tablet mouth 2 (two) times daily. metoprolol (LOPRESSOR) Take 25 mg by 0 Active 25 MG tablet mouth 2 (two) times daily. cycloSPORINE Place 1 drop into 0 Active (RESTASIS) 0.05 % both eyes 2 (two) ophthalmic emulsion times daily. gabapentin (NEURONTIN) Take 400 mg by 0 Active 400 MG capsule mouth 4 (four) times daily. Active Problems Problem Noted Date Ventricular [...] INFLUENZA VACCINE 04/27/2018 Implants Implanted Type Area Supervisor Fitting Device Shelf Model / Identifier Expiration Serial / Lot Date Lead Attain Performa [id number] - [id number] Cardiovascular N/A: [employer] :CARD 10/03/2018 [id number] / Implanted: Qty: 1 on 01/07/2017 by Satya Perales MD Chest RHY: DISEASE [id number] / MGT Ld Endocardial Df4 Act 55 [id number] - [id number] Defibrillators N/A: [employer]:CARD 10/10/2018 [id number] / Implanted: Qty: 1 on 01/07/2017 by Satya Perales MD Chest RHY: DISEASE [id number] / MGT Dev Amplia Quad Material Control Specialist-D Surescn [id number] - [id number] Defibrillators N/A: [employer]:CARD 04/24/2018 [id number] / Implanted: Qty: 1 on 01/07/2017 by Satya Perales MD Chest RHY:PACING SYS [id number] / Grft Hemshld Dbl Silvio 0.3x3.0in [id number] - [id number] Graft/Patch Right: GETINGE 04/26/2021 [id number] / Implanted: Qty: 1 on 10/01/2016 by Miguelangel Stack MD Neck IND:MAQUET:CV [id number] / [id number] Lead Pacemkr Rosa Chew 45x1 [id number] - [id number] Pacemaker Lead N/A: [employer]:CARD 09/23/2018 [id number] / Implanted: Qty: 1 on 01/07/2017 by Satya Perales MD Chest RHY: DISEASE [id number] / MGT Results Not on fileafter 11/29/2017 Insurance Payer Benefit Plan / Group Subscriber ID Type Phone Address CARE IMPROVEMENT MEDICARE MGD CARE IMPROVEMENT PLUS xxxxxxxxx CARE Advance Directives For more information, please contact:[address] [phone] Code Status Date Activated Date Inactivated Comments Full Code 01/07/2017 1:15 PM 01/08/2017 4:34 PM This code status was determined by: Patient Full Code 10/01/2016 11:49 AM 10/03/2016 8:34 PM This code status was determined by: Patient Full Code 09/30/2016 6:24 PM 10/01/2016 11:49 AM This code status was determined by: Patient
--- OUTSIDE RECORDS SUMMARY | 2018-11-30 09:40 | XMS REPORT ---
:1930 Author Organization [facility] Address [address] [place]. [address] [place] [id number] Care Team Providers Name Role Phone CHUCK [...] Value Reference Range Comments MAGNESIUM (BEAKER) (test yeut=950) 2.0 mg/dL 1.6-2.6 Specimen slightly hemolyzed BASIC METABOLIC [id number] 05:25:00 Test Item Value Reference Range Comments SODIUM (BEAKER) (test 138 meq/L 136-145 iwzi=539) POTASSIUM (BEAKER) (test 4.6 meq/L 3.5-5.1 Specimen slightly cuup=030) hemolyzed CHLORIDE (BEAKER) (test 108 meq/L 98-107 mhey=588) CO2 (BEAKER) (test 23 meq/L 22-29 erhi=098) BLOOD UREA NITROGEN 14 mg/dL 7-21 (BEAKER) (test znqi=795) CREATININE (BEAKER) (test 0.87 mg/dL 0.57-1.25 Specimen slightly agnr=126) hemolyzed GLUCOSE RANDOM (BEAKER) 109 mg/dL 70-105 (test pcfh=337) CALCIUM (BEAKER) (test 8.9 mg/dL 8.4-10.2 lnfq=918) EGFR (BEAKER) (test 62 mL/min/1.73 sq m ESTIMATED GFR IS NOT orwm=0125) ACCURATE CREATININE CLEARANCE IN PREDICTING GLOMERULAR FILTRATION RATE. ESTIMATED GFR IS NOT APPLICABLE FOR DIALYSIS PATIENTS. CBC (HEMOGRAM ONLY)2017-01-08 05:22:00 Test Item Value Reference Range Comments WHITE BLOOD CELL COUNT (BEAKER) (test qsxf=545) 11.1 K/ L 4.0-10.0 RED BLOOD CELL COUNT (BEAKER) (test pngs=319) 3.62 M/ L 4.00-5.00 HEMOGLOBIN (BEAKER) (test vghs=048) 12.2 GM/DL 12.0-15.0 HEMATOCRIT (BEAKER) (test pbpo=622) 36.3 % 36.0-45.0 MEAN CORPUSCULAR VOLUME (BEAKER) (test rqus=529) 101.0 fL 82.0-99.0 MEAN CORPUSCULAR HEMOGLOBIN (BEAKER) (test 33.9 pg 27.0-33.0 rvjn=020) MEAN CORPUSCULAR HEMOGLOBIN CONC (BEAKER) (test 33.7 GM/DL 32.0-36.0 yhpr=332) RED CELL DISTRIBUTION WIDTH (BEAKER) (test 15.2 % 10.3-14.2 qunc=135) PLATELET COUNT (BEAKER) (test hcdl=824) 201 K/CU MM 150-430 MEAN PLATELET VOLUME (BEAKER) (test yalp=593) 7.6 fL 6.5-10.5 NUCLEATED RED BLOOD CELLS (BEAKER) (test 0 /100 WBC 0-0 wzgb=949) 0.00CBC (HEMOGRAM ONLY)2017-01-07 05:01:00 Test Item Value Reference Range Comments WHITE BLOOD CELL COUNT (BEAKER) (test bipx=218) 5.8 K/ L 4.0-10.0 RED BLOOD CELL COUNT (BEAKER) (test pxwi=367) 3.68 M/ L 4.00-5.00 HEMOGLOBIN (BEAKER) (test ltum=308) 12.1 GM/DL 12.0-15.0 HEMATOCRIT (BEAKER) (test kual=344) 36.9 % 36.0-45.0 MEAN CORPUSCULAR VOLUME (BEAKER) (test wcpl=001) 100.0 fL 82.0-99.0 MEAN CORPUSCULAR HEMOGLOBIN (BEAKER) (test 33.0 pg 27.0-33.0 rtrn=312) MEAN CORPUSCULAR HEMOGLOBIN CONC (BEAKER) (test 32.8 GM/DL 32.0-36.0 mblo=823) RED CELL DISTRIBUTION WIDTH (BEAKER) (test 13.5 % 10.3-14.2 afvt=044) PLATELET COUNT (BEAKER) (test bhdc=525) 204 K/CU MM 150-430 MEAN PLATELET VOLUME (BEAKER) (test nwcf=031) 7.3 fL 6.5-10.5 NUCLEATED RED BLOOD CELLS (BEAKER) (test 0 /100 WBC 0-0 grsd=762) [id number] 02:15:00 Test Item Value Reference Range Comments MAGNESIUM (BEAKER) (test rneq=278) 2.2 mg/dL 1.6-2.6 BASIC METABOLIC [id number] 02:15:00 Test Item Value Reference Range Comments SODIUM (BEAKER) (test 142 meq/L 136-145 rlbt=552) POTASSIUM (BEAKER) (test 4.0 meq/L 3.5-5.1 sign=387) CHLORIDE (BEAKER) (test 110 meq/L 98-107 pdfu=651) CO2 (BEAKER) (test 23 meq/L 22-29 wybp=005) BLOOD UREA NITROGEN 21 mg/dL 7-21 (BEAKER) (test oege=254) CREATININE (BEAKER) (test 1.02 mg/dL 0.57-1.25 ikoo=795) GLUCOSE RANDOM (BEAKER) 102 mg/dL 70-105 (test holt=189) CALCIUM (BEAKER) (test 8.9 mg/dL 8.4-10.2 bzjm=998) EGFR (BEAKER) (test 51 mL/min/1.73 sq m ESTIMATED GFR IS NOT qapu=4778) ACCURATE CREATININE CLEARANCE IN PREDICTING GLOMERULAR FILTRATION RATE. ESTIMATED GFR IS NOT APPLICABLE FOR DIALYSIS PATIENTS. [id number] 02:02:00 Test Item Value Reference Range Comments PARTIAL THROMBOPLASTIN TIME (BEAKER) (test 67.1 seconds 22.5-36.0 avob=411) CBC W/PLT COUNT & AUTO [id number] 01:59:00 Test Item Value Reference Range Comments WHITE BLOOD CELL COUNT (BEAKER) (test radf=755) 5.2 K/ L 4.0-10.0 RED BLOOD CELL COUNT (BEAKER) (test pnor=632) 3.33 M/ L 4.00-5.00 HEMOGLOBIN (BEAKER) (test mnpf=520) 11.4 GM/DL 12.0-15.0 HEMATOCRIT (BEAKER) (test cruh=092) 33.5 % 36.0-45.0 MEAN CORPUSCULAR VOLUME (BEAKER) (test uavh=714) 101.0 fL 82.0-99.0 MEAN CORPUSCULAR HEMOGLOBIN (BEAKER) (test 34.4 pg 27.0-33.0 iwcq=631) MEAN CORPUSCULAR HEMOGLOBIN CONC (BEAKER) (test 34.1 GM/DL 32.0-36.0 okna=981) RED CELL DISTRIBUTION WIDTH (BEAKER) (test 13.5 % 10.3-14.2 zvsd=032) PLATELET COUNT (BEAKER) (test ncei=342) 184 K/CU MM 150-430 MEAN PLATELET VOLUME (BEAKER) (test ouxw=237) 7.0 fL 6.5-10.5 NUCLEATED RED BLOOD CELLS (BEAKER) (test 0 /100 WBC 0-0 aggw=176) NEUTROPHILS RELATIVE PERCENT (BEAKER) (test 49 % kwzg=495) LYMPHOCYTES RELATIVE PERCENT (BEAKER) (test 34 % errk=135) MONOCYTES RELATIVE PERCENT (BEAKER) (test 10 % ezkp=772) EOSINOPHILS RELATIVE PERCENT (BEAKER) (test 7 % vjey=439) BASOPHILS RELATIVE PERCENT (BEAKER) (test 0 % cict=627) NEUTROPHILS ABSOLUTE COUNT (BEAKER) (test 2.52 K/ L 1.80-8.00 cniy=308) LYMPHOCYTES ABSOLUTE COUNT (BEAKER) (test 1.75 K/ L 1.48-4.50 dprl=720) MONOCYTES ABSOLUTE COUNT (BEAKER) (test 0.54 K/ L 0.00-1.30 sfaz=263) EOSINOPHILS ABSOLUTE COUNT (BEAKER) (test 0.34 K/ L 0.00-0.50 upxz=937) BASOPHILS ABSOLUTE COUNT (BEAKER) (test 0.02 K/ L 0.00-0.20 dwak=708) 0.00DIGOXIN [id number] 18:00:00 Test Item Value Reference Range Comments DIGOXIN LEVEL (BEAKER) (test uevj=518) 0.4 ng/mL 0.8-2.0 TSH/FREE T4 IF [id number] 18:00:00 Test Item Value Reference Range Comments THYROID STIMULATING HORMONE (BEAKER) (test 1.47 uIU/mL 0.35-4.94 dhzy=128) [id number] 17:35:00 Test Item Value Reference Range Comments MAGNESIUM (BEAKER) (test swii=792) 2.4 mg/dL 1.6-2.6 Fasting lipid panelBASIC METABOLIC [id number] 17:35:00 Test Item Value Reference Range Comments SODIUM (BEAKER) (test 139 meq/L 136-145 hcgu=317) POTASSIUM (BEAKER) (test 3.9 meq/L 3.5-5.1 tatk=079) CHLORIDE (BEAKER) (test 105 meq/L 98-107 srit=184) CO2 (BEAKER) (test 27 meq/L 22-29 yirn=128) BLOOD UREA NITROGEN 25 mg/dL 7-21 (BEAKER) (test oyzc=822) CREATININE (BEAKER) (test 1.24 mg/dL 0.57-1.25 ctiw=050) GLUCOSE RANDOM (BEAKER) 91 mg/dL 70-105 (test afmg=619) CALCIUM (BEAKER) (test 9.4 mg/dL 8.4-10.2 xboz=716) EGFR (BEAKER) (test 41 mL/min/1.73 sq m ESTIMATED GFR IS NOT vkih=5578) ACCURATE CREATININE CLEARANCE IN PREDICTING GLOMERULAR FILTRATION RATE. ESTIMATED GFR IS NOT APPLICABLE FOR DIALYSIS PATIENTS. Fasting lipid panelLIPID [id number] 17:35:00 Test Item Value Reference Range Comments TRIGLYCERIDES (BEAKER) (test ljgt=843) 81 mg/dL CHOLESTEROL (BEAKER) (test dkjg=652) 224 mg/dL HDL CHOLESTEROL (BEAKER) (test rcqm=390) 96 mg/dL LDL CHOLESTEROL CALCULATED (BEAKER) (test 112 mg/dL knhe=294) Triglyceride Reference Range: Low Risk <150 Borderline 150- 199 High Risk 200-499 Very High Risk >=500Cholesterol Reference Range: Low Risk <200 Borderline 200-239 High Risk > 240HDL Cholesterol Reference Range: Low Risk >=60 High Risk <40LDL Cholesterol Reference Range: Optimal <100 Near Optimal 100-129 Borderline 130-159 High 160-189 Very High >=190 Fasting lipid panelHEPATIC FUNCTION [id number] 17:35:00 Test Item Value Reference Range Comments TOTAL PROTEIN (BEAKER) (test oyxt=323) 7.7 gm/dL 6.0-8.3 ALBUMIN (BEAKER) (test qdvj=9708) 3.9 g/dL 3.5-5.0 BILIRUBIN TOTAL (BEAKER) (test zwes=282) 1.1 mg/dL 0.2-1.2 BILIRUBIN DIRECT (BEAKER) (test waym=928) 0.5 mg/dL 0.1-0.5 ALKALINE PHOSPHATASE (BEAKER) (test zvev=492) 120 U/L 40-150 AST (SGOT) (BEAKER) (test pbwt=768) 19 U/L 5-34 ALT (SGPT) (BEAKER) (test hycj=265) 19 U/L 6-55 Fasting lipid [id number] 17:24:00 Test Item Value Reference Range Comments PARTIAL THROMBOPLASTIN TIME (BEAKER) (test 37.0 seconds 22.5-36.0 xtup=413) Prior to initiating heparinPROTHROMBIN [id number] 17:23:00 Test Item Value Reference Range Comments PROTIME (BEAKER) (test gvgq=059) 14.3 seconds 11.7-14.7 INR (BEAKER) (test hoco=574) 1.1 <=5.9 RECOMMENDED COUMADIN/WARFARIN INR THERAPY RANGESSTANDARD DOSE: 2.0 - 3.0 Includes: PROPHYLAXIS forvenous thrombosis, systemic embolization; TREATMENT for venous thrombosis and/or pulmonary embolus.HIGH RISK: Target INR is 2.5-3.5 for patients with mechanical heart valves.Prior to initiating [id number] 17:23:00 Test Item Value Reference Range Comments PARTIAL THROMBOPLASTIN TIME (BEAKER) (test 36.6 seconds 22.5-36.0 jnbx=962) Prior to initiating heparinCBC W/PLT COUNT & AUTO [id number] 17: 20:00 Test Item Value Reference Range Comments WHITE BLOOD CELL COUNT (BEAKER) (test pxtm=621) 6.1 K/ L 4.0-10.0 RED BLOOD CELL COUNT (BEAKER) (test gzis=079) 3.72 M/ L 4.00-5.00 HEMOGLOBIN (BEAKER) (test zwae=282) 12.4 GM/DL 12.0-15.0 HEMATOCRIT (BEAKER) (test qvmk=109) 37.4 % 36.0-45.0 MEAN CORPUSCULAR VOLUME (BEAKER) (test vjtl=767) 101.0 fL 82.0-99.0 MEAN CORPUSCULAR HEMOGLOBIN (BEAKER) (test 33.5 pg 27.0-33.0 epat=962) MEAN CORPUSCULAR HEMOGLOBIN CONC (BEAKER) (test 33.2 GM/DL 32.0-36.0 mwmu=379) RED CELL DISTRIBUTION WIDTH (BEAKER) (test 13.5 % 10.3-14.2 lrbp=344) PLATELET COUNT (BEAKER) (test zojs=486) 219 K/CU MM 150-430 MEAN PLATELET VOLUME (BEAKER) (test blub=973) 7.0 fL 6.5-10.5 NUCLEATED RED BLOOD CELLS (BEAKER) (test 0 /100 WBC 0-0 aukr=023) NEUTROPHILS RELATIVE PERCENT (BEAKER) (test 51 % efrr=550) LYMPHOCYTES RELATIVE PERCENT (BEAKER) (test 33 % ndpy=048) MONOCYTES RELATIVE PERCENT (BEAKER) (test 10 % xutl=423) EOSINOPHILS RELATIVE PERCENT (BEAKER) (test 5 % edmy=944) BASOPHILS RELATIVE PERCENT (BEAKER) (test 1 % vkrw=836) NEUTROPHILS ABSOLUTE COUNT (BEAKER) (test 3.09 K/ L 1.80-8.00 vykb=619) LYMPHOCYTES ABSOLUTE COUNT (BEAKER) (test 1.99 K/ L 1.48-4.50 tfjz=936) MONOCYTES ABSOLUTE COUNT (BEAKER) (test 0.62 K/ L 0.00-1.30 gpqa=365) EOSINOPHILS ABSOLUTE COUNT (BEAKER) (test 0.31 K/ L 0.00-0.50 hdly=705) BASOPHILS ABSOLUTE COUNT (BEAKER) (test 0.08 K/ L 0.00-0.20 mbem=639) PLATELET [id number] 17:16:00 Test Item Value Reference Range Comments PLATELET COUNT (BEAKER) (test jjcq=836) 219 K/CU MM 150-430 BASIC METABOLIC [id number] 04:55:00 Test Item Value Reference Range Comments SODIUM (BEAKER) (test 141 meq/L 136-145 toel=016) POTASSIUM (BEAKER) (test 3.3 meq/L 3.5-5.1 cxjm=999) CHLORIDE (BEAKER) (test 104 meq/L 98-107 hcva=094) CO2 (BEAKER) (test 28 meq/L 22-29 ekzz=583) BLOOD UREA NITROGEN 14 mg/dL 7-21 (BEAKER) (test erar=383) CREATININE (BEAKER) (test 0.80 mg/dL 0.57-1.25 pyed=995) GLUCOSE RANDOM (BEAKER) 97 mg/dL 70-105 (test nzgi=398) CALCIUM (BEAKER) (test 8.9 mg/dL 8.4-10.2 riru=178) EGFR (BEAKER) (test 68 mL/min/1.73 sq m ESTIMATED GFR IS NOT rmfx=0710) ACCURATE CREATININE CLEARANCE IN PREDICTING GLOMERULAR FILTRATION RATE. ESTIMATED GFR IS NOT APPLICABLE FOR DIALYSIS PATIENTS. CBC (HEMOGRAM ONLY)2016-10-03 04:47:00 Test Item Value Reference Range Comments WHITE BLOOD CELL COUNT (BEAKER) (test jyhi=108) 7.8 K/ L 4.0-10.0 RED BLOOD CELL COUNT (BEAKER) (test mnvt=714) 3.12 M/ L 4.00-5.00 HEMOGLOBIN (BEAKER) (test okhn=544) 11.2 GM/DL 12.0-15.0 HEMATOCRIT (BEAKER) (test dpoq=585) 32.5 % 36.0-45.0 MEAN CORPUSCULAR VOLUME (BEAKER) (test kbdz=860) 104.0 fL 82.0-99.0 MEAN CORPUSCULAR HEMOGLOBIN (BEAKER) (test 35.8 pg 27.0-33.0 nxaf=713) MEAN CORPUSCULAR HEMOGLOBIN CONC (BEAKER) (test 34.4 GM/DL 32.0-36.0 chmk=779) RED CELL DISTRIBUTION WIDTH (BEAKER) (test 12.8 % 10.3-14.2 udyy=032) PLATELET COUNT (BEAKER) (test asxz=088) 190 K/CU MM 150-430 MEAN PLATELET VOLUME (BEAKER) (test uxkq=676) 7.4 fL 6.5-10.5 NUCLEATED RED BLOOD CELLS (BEAKER) (test 0 /100 WBC 0-0 rerq=143) 0.00PT/[id number] 04:41:00 Test Item Value Reference Range Comments PROTIME (BEAKER) (test ccnw=173) 13.1 seconds 11.7-14.7 INR (BEAKER) (test pihz=833) 1.0 <=5.9 PARTIAL THROMBOPLASTIN TIME (BEAKER) (test 28.1 seconds 22.5-36.0 pdrg=944) RECOMMENDED COUMADIN/WARFARIN INR THERAPY RANGESSTANDARD DOSE: 2.0 - 3.0 Includes: PROPHYLAXIS forvenous thrombosis, systemic embolization; TREATMENT for venous thrombosis and/or pulmonary embolus.HIGH RISK: Target INR is 2.5-3.5 for patients with mechanical heart valves.CREATINE KINASE (CK), TOTAL AND [id number] 04:53:00 Test Item Value Reference Range Comments CREATINE KINASE TOTAL (BEAKER) (test rjfw=151) 36 U/L 29-200 CREATINE KINASE-MB (BEAKER) (test ckci=275) 1.6 ng/mL 0.0-6.6 CREATINE KINASE-MB INDEX (BEAKER) (test rjcb=135) 4.4 % Effective 06/14/2014: CK-MB Reference Range ChangeNew: 0.0-6.6 Previous: 0.0- 4.9CK-MB Reference Range:<6.7 Normal6.7-10.0 Borderline>10.0 AbnormalTROPONIN [id number] 04:53:00 Test Item Value Reference Range Comments TROPONIN I (BEAKER) (test nawr=207) 0.03 ng/mL 0.00-0.03 Effective 06/14/2014: Reference Range [...] acute neurological disease, and persistent tachyarrhythmia.BASIC METABOLIC [id number] 04:46:00 Test Item Value Reference Range Comments SODIUM (BEAKER) (test 139 meq/L 136-145 iiut=166) POTASSIUM (BEAKER) (test 3.7 meq/L 3.5-5.1 ypsc=197) CHLORIDE (BEAKER) (test 104 meq/L 98-107 gxze=646) CO2 (BEAKER) (test 27 meq/L 22-29 dhre=739) BLOOD UREA NITROGEN 14 mg/dL 7-21 (BEAKER) (test afor=933) CREATININE (BEAKER) (test 0.82 mg/dL 0.57-1.25 rxqp=208) GLUCOSE RANDOM (BEAKER) 102 mg/dL 70-105 (test mgqg=161) CALCIUM (BEAKER) (test 9.1 mg/dL 8.4-10.2 lmsv=016) EGFR (BEAKER) (test 66 mL/min/1.73 sq m ESTIMATED GFR IS NOT aips=5990) ACCURATE CREATININE CLEARANCE IN PREDICTING GLOMERULAR FILTRATION RATE. ESTIMATED GFR IS NOT APPLICABLE FOR DIALYSIS PATIENTS. PT/[id number] 04:41:00 Test Item Value Reference Range Comments PROTIME (BEAKER) (test izkl=385) 13.5 seconds 11.7-14.7 INR (BEAKER) (test tmor=182) 1.0 <=5.9 PARTIAL THROMBOPLASTIN TIME (BEAKER) (test 33.1 seconds 22.5-36.0 cdbq=234) RECOMMENDED COUMADIN/WARFARIN INR THERAPY RANGESSTANDARD DOSE: 2.0 - 3.0 Includes: PROPHYLAXIS forvenous thrombosis, systemic embolization; TREATMENT for venous thrombosis and/or pulmonary embolus.HIGH RISK: Target INR is 2.5-3.5 for patients with mechanical heart valves.CBC (HEMOGRAM ONLY)2016-10-02 04:33:00 Test Item Value Reference Range Comments WHITE BLOOD CELL COUNT (BEAKER) (test tgdt=725) 9.4 K/ L 4.0-10.0 RED BLOOD CELL COUNT (BEAKER) (test qtqg=311) 3.07 M/ L 4.00-5.00 HEMOGLOBIN (BEAKER) (test gdmo=096) 11.0 GM/DL 12.0-15.0 HEMATOCRIT (BEAKER) (test tfjm=371) 31.9 % 36.0-45.0 MEAN CORPUSCULAR VOLUME (BEAKER) (test riug=295) 104.0 fL 82.0-99.0 MEAN CORPUSCULAR HEMOGLOBIN (BEAKER) (test 36.0 pg 27.0-33.0 tkak=806) MEAN CORPUSCULAR HEMOGLOBIN CONC (BEAKER) (test 34.6 GM/DL 32.0-36.0 upkq=686) RED CELL DISTRIBUTION WIDTH (BEAKER) (test 12.7 % 10.3-14.2 isoa=904) PLATELET COUNT (BEAKER) (test kvfx=092) 205 K/CU MM 150-430 MEAN PLATELET VOLUME (BEAKER) (test wouq=735) 7.3 fL 6.5-10.5 NUCLEATED RED BLOOD CELLS (BEAKER) (test 0 /100 WBC 0-0 xyeb=622) 0.00TSH/FREE T4 IF [id number] 19:30:00 Test Item Value Reference Range Comments THYROID STIMULATING HORMONE (BEAKER) (test 0.43 uIU/mL 0.35-4.94 aqya=439) CREATINE KINASE (CK), TOTAL AND [id number] 19:14:00 Test Item Value Reference Range Comments CREATINE KINASE TOTAL (BEAKER) (test pqdy=641) 53 U/L 29-200 CREATINE KINASE-MB (BEAKER) (test usbn=472) 2.6 ng/mL 0.0-6.6 CREATINE KINASE-MB INDEX (BEAKER) (test bjak=619) 4.9 % Effective 06/14/2014: CK-MB Reference Range ChangeNew: 0.0-6.6 Previous: 0.0- 4.9CK-MB Reference Range:<6.7 Normal6.7-10.0 Borderline>10.0 AbnormalTROPONIN [id number] 19:14:00 Test Item Value Reference Range Comments TROPONIN I (BEAKER) (test mhvw=981) 0.01 ng/mL 0.00-0.03 Effective 06/14/2014: Reference Range [...] renalfailure, acidosis, acute neurological disease, and persistent tachyarrhythmia.[id number] 15:20: 00 Test Item Value Reference Range Comments MAGNESIUM (BEAKER) (test vfxh=662) 1.9 mg/dL 1.6-2.6 BASIC METABOLIC [id number] 15:20:00 Test Item Value Reference Range Comments SODIUM (BEAKER) (test 141 meq/L 136-145 bslj=799) POTASSIUM (BEAKER) (test 3.9 meq/L 3.5-5.1 nyod=501) CHLORIDE (BEAKER) (test 108 meq/L 98-107 geve=211) CO2 (BEAKER) (test 25 meq/L 22-29 thbd=678) BLOOD UREA NITROGEN 14 mg/dL 7-21 (BEAKER) (test dksz=405) CREATININE (BEAKER) (test 0.84 mg/dL 0.57-1.25 kqmx=530) GLUCOSE RANDOM (BEAKER) 130 mg/dL 70-105 (test jmys=630) CALCIUM (BEAKER) (test 8.8 mg/dL 8.4-10.2 krra=526) EGFR (BEAKER) (test 64 mL/min/1.73 sq m ESTIMATED GFR IS NOT ycxi=1368) ACCURATE CREATININE CLEARANCE IN PREDICTING GLOMERULAR FILTRATION RATE. ESTIMATED GFR IS NOT APPLICABLE FOR DIALYSIS PATIENTS. CBC (HEMOGRAM ONLY)2016-10-01 14:52:00 Test Item Value Reference Range Comments WHITE BLOOD CELL COUNT (BEAKER) (test nsjj=920) 10.1 K/ L 4.0-10.0 RED BLOOD CELL COUNT (BEAKER) (test vaxk=181) 3.40 M/ L 4.00-5.00 HEMOGLOBIN (BEAKER) (test vssk=950) 11.9 GM/DL 12.0-15.0 HEMATOCRIT (BEAKER) (test zbva=550) 34.6 % 36.0-45.0 MEAN CORPUSCULAR VOLUME (BEAKER) (test uvrx=835) 102.0 fL 82.0-99.0 MEAN CORPUSCULAR HEMOGLOBIN (BEAKER) (test 35.1 pg 27.0-33.0 vhga=911) MEAN CORPUSCULAR HEMOGLOBIN CONC (BEAKER) (test 34.5 GM/DL 32.0-36.0 odqg=206) RED CELL DISTRIBUTION WIDTH (BEAKER) (test 13.5 % 10.3-14.2 xgbd=391) PLATELET COUNT (BEAKER) (test ntoo=119) 204 K/CU MM 150-430 MEAN PLATELET VOLUME (BEAKER) (test vvjv=336) 7.4 fL 6.5-10.5 NUCLEATED RED BLOOD CELLS (BEAKER) (test 0 /100 WBC 0-0 zyrb=721) 0.00BASIC METABOLIC [id number] 11:00:00 Test Item Value Reference Range Comments SODIUM (BEAKER) (test 142 meq/L 136-145 rpct=155) POTASSIUM (BEAKER) (test 4.5 meq/L 3.5-5.1 lzel=653) CHLORIDE (BEAKER) (test 103 meq/L 98-107 iysv=654) CO2 (BEAKER) (test 28 meq/L 22-29 nuro=571) BLOOD UREA NITROGEN 28 mg/dL 7-21 (BEAKER) (test ocwh=076) CREATININE (BEAKER) (test 1.04 mg/dL 0.57-1.25 zvwt=095) GLUCOSE RANDOM (BEAKER) 98 mg/dL 70-105 (test gulg=480) CALCIUM (BEAKER) (test 9.8 mg/dL 8.4-10.2 rxhr=666) EGFR (BEAKER) (test 50 mL/min/1.73 sq m ESTIMATED GFR IS NOT mfyq=1827) ACCURATE CREATININE CLEARANCE IN PREDICTING GLOMERULAR FILTRATION RATE. ESTIMATED GFR IS NOT APPLICABLE FOR DIALYSIS PATIENTS. CBC W/PLT COUNT & AUTO [id number] 10:59:00 Test Item Value Reference Range Comments WHITE BLOOD CELL COUNT (BEAKER) (test amaq=010) 7.0 K/ L 4.0-10.0 RED BLOOD CELL COUNT (BEAKER) (test btlb=564) 3.77 M/ L 4.00-5.00 HEMOGLOBIN (BEAKER) (test pvri=438) 13.2 GM/DL 12.0-15.0 HEMATOCRIT (BEAKER) (test niaj=476) 38.5 % 36.0-45.0 MEAN CORPUSCULAR VOLUME (BEAKER) (test syze=551) 102.0 fL 82.0-99.0 MEAN CORPUSCULAR HEMOGLOBIN (BEAKER) (test 34.9 pg 27.0-33.0 sksb=584) MEAN CORPUSCULAR HEMOGLOBIN CONC (BEAKER) (test 34.2 GM/DL 32.0-36.0 fhrg=165) RED CELL DISTRIBUTION WIDTH (BEAKER) (test 13.6 % 10.3-14.2 bmzb=365) PLATELET COUNT (BEAKER) (test erjd=289) 233 K/CU MM 150-430 MEAN PLATELET VOLUME (BEAKER) (test snde=386) 7.3 fL 6.5-10.5 NUCLEATED RED BLOOD CELLS (BEAKER) (test 0 /100 WBC 0-0 hzhu=723) NEUTROPHILS RELATIVE PERCENT (BEAKER) (test 60 % vclu=725) LYMPHOCYTES RELATIVE PERCENT (BEAKER) (test 27 % xvtw=846) MONOCYTES RELATIVE PERCENT (BEAKER) (test 9 % iyua=309) EOSINOPHILS RELATIVE PERCENT (BEAKER) (test 3 % xaxe=800) BASOPHILS RELATIVE PERCENT (BEAKER) (test 1 % fmow=981) NEUTROPHILS ABSOLUTE COUNT (BEAKER) (test 4.20 K/ L 1.80-8.00 eboi=299) LYMPHOCYTES ABSOLUTE COUNT (BEAKER) (test 1.92 K/ L 1.48-4.50 zjfi=918) MONOCYTES ABSOLUTE COUNT (BEAKER) (test 0.60 K/ L 0.00-1.30 mgbp=454) EOSINOPHILS ABSOLUTE COUNT (BEAKER) (test 0.23 K/ L 0.00-0.50 lfqx=440) BASOPHILS ABSOLUTE COUNT (BEAKER) (test 0.07 K/ L 0.00-0.20 xmoe=495) 0.00PT/[id number] 10:58:00 Test Item Value Reference Range Comments PROTIME (BEAKER) (test dvyf=046) 12.7 seconds 11.7-14.7 INR (BEAKER) (test zjou=299) 1.0 <=5.9 PARTIAL THROMBOPLASTIN TIME (BEAKER) (test 29.7 seconds 22.5-36.0 skiv=722) RECOMMENDED COUMADIN/WARFARIN INR THERAPY RANGESSTANDARD DOSE: 2.0 - 3.0 Includes: PROPHYLAXIS forvenous thrombosis, systemic embolization; TREATMENT for venous thrombosis and/or pulmonary embolus.HIGH RISK: Target INR is 2.5-3.5 for patients with mechanical heart valves.
[2018-11-30] MEDS ORDERED: NA CHLORIDE 0.9% 1,000 ML ONE (10:05)
--- NOTE | 2018-11-30 10:25 | RAD REPORT ---
EXAM DESCRIPTION: RAD - Chest Single View - 11/30/2018 10:15 am CLINICAL HISTORY: Chest pain, shortness of breath COMPARISON: October 05September 03 TECHNIQUE: AP portable chest image was obtained 1011 hours . FINDINGS: Patient has chronic interstitial lung disease. Patient also has prominent left hemidiaphra gm elevation with stomach and bowel positioned below the left hemidiaphragm. Interstitial pattern is not substantially different from comparison. This pattern can easily mask interstitial edema or infil trate. Cardiomegaly is present. Vasculature is mildly prominent. There is chronic atelectasis abuttin g the left hemidiaphragm. Pacemaker/ defibrillator is in place. No pneumothorax or large pleural effu sharon. No acute bony abnormality seen. No acute aortic findings suspected. IMPRESSION: Mild CHF/ volume overload pattern is suspected Patient has chronic interstitial lung disease as a baseline.
--- NOTE | 2018-11-30 10:36 | EDPHYS ---
Physician Documentation [facility] Name: Nikky Ocampo Age: 88 yrs Sex: Female : 1930 Arrival Date: 11/30/2018 Time: 09:42 Bed 16 Private MD: ED Physician Mahesh Macias HPI: 11/30 10:27 This 88 yrs old Female presents to ER via EMS with complaints of Chest Pain, zeynep Shortness Of Breath. 10:27 The patient or guardian reports chest pain that is located primarily in the anterior zeynep chest wall. Onset: 2 day(s) ago. The pain does not radiate. Associated signs and symptoms: The patient has no apparent associated signs or symptoms. The chest pain is described as a heaviness. Severity of pain: At its worst the pain was mild in the emergency department the pain is unchanged. Historical: - Allergies: 09:52 Codeine; hb - PMHx: :52 CHF; Chronic leukemia; colon cancer; Hypertension; Pacemaker; hb - PSHx: :52 Hysterectomy; Cholecystectomy; hb - Immunization history:: Adult Immunizations up to date. - Social history:: Smoking status: Patient/guardian denies using tobacco. - Ebola Screening: : No symptoms or risks identified at this time. - Family history:: not pertinent. ROS: 10:27 Constitutional: Negative for fever, chills, and weight loss, Eyes: Negative for injury, zeynep pain, redness, and discharge, ENT: Negative for injury, pain, and discharge, Neck: Negative for injury, pain, and swelling, Cardiovascular: Negative for chest pain, palpitations, and edema, Back: Negative for injury and pain, : Negative for injury, bleeding, discharge, and swelling, MS/Extremity: Negative for injury and deformity, Skin: Negative for injury, rash, and discoloration, Neuro: Negative for headache, weakness, numbness, tingling, and seizure. 10:27 Respiratory: Positive for cough, shortness of breath, on exertion. 10:27 Abdomen/GI: Positive for abdominal pain, black/tarry stool, rectal bleeding. Exam: 10:27 Constitutional: This is a well developed, well nourished patient who is awake, alert, zeynep and in no acute distress. Head/Face: Normocephalic, atraumatic. Eyes: Pupils equal round and reactive to light, extra-ocular motions intact. Lids and lashes normal. Conjunctiva and sclera are non-icteric and not injected. Cornea within normal limits. Periorbital areas with no swelling, redness, or edema. ENT: Nares patent. No nasal discharge, no septal abnormalities noted. Tympanic membranes are normal and external auditory canals are clear. Oropharynx with no redness, swelling, or masses, exudates, or evidence of obstruction, uvula midline. Mucous membranes moist. Neck: Trachea midline, no thyromegaly or masses palpated, and no cervical lymphadenopathy. Supple, full range of motion without nuchal rigidity, or vertebral point tenderness. No Meningismus. Chest/axilla: Normal chest wall appearance and motion. Nontender with no deformity. No lesions are appreciated. Cardiovascular: Regular rate and rhythm with a normal S1 and S2. No gallops, murmurs, or rubs. Normal PMI, no JVD. No pulse deficits. Back: No spinal tenderness. No costovertebral tenderness. Full range of motion. MS/ Extremity: Pulses equal, no cyanosis. Neurovascular intact. Full, normal range of motion. Neuro: Awake and alert, GCS 15, oriented to person, place, time, and situation. Cranial nerves II-XII grossly intact. Motor strength 5/5 in all extremities. Sensory grossly intact. Cerebellar exam normal. Normal gait. Psych: Awake, alert, with orientation to person, place and time. Behavior, mood, and affect are within normal limits. 10:27 Respiratory: mild respiratory distress is noted, Respirations: labored breathing, Breath sounds: decreased breath sounds, rhonchi, Respiratory rate: 18 Vital Signs: 09:50 BP 146 / 50; Pulse 71; Resp 15; Temp 98.2; Pulse Ox 92% on R/A; Pain 2/10; hb 09:52 Temp 97.8(O); mb4 13:10 BP 121 / 38; Pulse 100; Resp 22; Temp 98.6(O); Pulse Ox 100% on Nebulizer Mask; mb4 13:30 BP 116 / 40; Pulse 91; Resp 18; Temp 99; Pulse Ox 100% on 10% Nebulizer Mask; hb 13:35 BP 111 / 38; Pulse 90; Resp 22; Temp 97.9; Pulse Ox 100% on 10% Nebulizer Mask; hb 13:40 BP 119 / 39; Pulse 91; Resp 18; Temp 97.9; Pulse Ox 100% 2 lpm ; hb 13:45 BP 112 / 55; Pulse 97; Resp 22; Temp 98.1; Pulse Ox 100% on 2 lpm NC; hb MDM: 09:54 Patient medically screened. [facility] 10:27 Data reviewed: vital signs, nurses notes, lab test result(s), EKG, radiologic studies, [facility] CT scan, plain films. 11/30 09:44 Order name: Basic Metabolic Panel; Complete Time: 12:31 [facility] 11/30 09:44 Order name: CBC with Diff; Complete Time: 12:30 [facility] 11/30 09:44 Order name: LFT's; Complete Time: 12:31 [facility] 11/30 09:44 Order name: Magnesium; Complete Time: 12:31 [facility] 11/30 09:44 Order name: NT PRO-BNP; Complete Time: 12:31 [facility] 11/30 09:44 Order name: PT-INR; Complete Time: 11:16 [facility] 11/30 09:44 Order name: Troponin (emerg Dept Use Only); Complete Time: 12:31 [facility] 11/30 09:44 Order name: XRAY Chest (1 view); Complete Time: 11:16 [facility] 11/30 09:44 Order name: Lipase; Complete Time: 12:31 [facility] 11/30 10:41 Order name: Type And Screen 11/30 11:28 Order name: Manual Differential; Complete Time: 12:30 EDMS 11/30 11:35 Order name: Urine Culture [facility] 11/30 11:40 Order name: Urine Dipstick--Ancillary (enter results) 11/30 09:44 Order name: EKG; Complete Time: 09:45 [facility] 11/30 09:44 Order name: Cardiac monitoring; Complete Time: 09:53 [facility] 11/30 09:44 Order name: EKG - Nurse/Tech; Complete Time: 11:02 [facility] 11/30 09:44 Order name: IV Saline Lock; Complete Time: 11:02 [facility] 11/30 09:44 Order name: Labs collected and sent; Complete Time: 11:02 [facility] 11/30 09:44 Order name: O2 Per Protocol; Complete Time: 09:53 [facility] 11/30 09:44 Order name: O2 Sat Monitoring; Complete Time: 09:53 [facility] 11/30 09:44 Order name: Urine Dipstick-Ancillary (obtain specimen); Complete Time: 11:38 [facility] 11/30 10:24 Order name: Transfuse; Complete Time: 11:02 [facility] 11/30 10:24 Order name: IV Saline Lock - Large Bore; Complete Time: 11:02 [facility] 11/30 10:27 Order name: Martinez; Complete Time: 11:38 [facility] 11/30 10:40 Order name: Labs - recollect needed; Complete Time: 11:02 bd Administered Medications: 11:01 Drug: NS 0.9% 1000 ml Route: IV; Rate: 125 ml/hr; Site: right antecubital; hb 11:01 Drug: ProTONIX 80 mg Route: IVP; Site: right antecubital; hb 11:40 Follow up: Response: No adverse reaction hb 11:01 Drug: ProTONIX 8 mg/hr Route: IV; Rate: 25 ml/hr; Site: right antecubital; hb 11:01 Drug: Lasix 20 mg Route: IVP; Site: right antecubital; hb 11:40 Follow up: Response: No adverse reaction hb 12:15 Drug: Rocephin - (cefTRIAXone) 1 grams Route: IVPB; Infused Over: 30 mins; Site: left hb antecubital; 12:15 Follow up: IV Status: Completed infusion; IV Intake: 10ml hb 13:00 Follow up: Response: No adverse reaction hb 13:10 Drug: Albuterol - atroVENT (3:1) (2.5 mg - 0.5 mg) 3 ml Route: Nebulizer; hb 13:45 Follow up: Response: No adverse reaction hb 13:10 Drug: Insulin Regular Human 10 units {Co-Signature: pamela (Jony Gifford RN).} Route: IVP; hb Site: left antecubital; 13:40 Follow up: Response: No adverse reaction hb 13:10 Drug: D50W 50 ml Route: IVP; Site: left antecubital; hb 13:45 Follow up: Response: No adverse reaction hb Disposition: 11/30/18 10:34 Hospitalization ordered by Ken Tang for Inpatient Admission. Preliminary diagnosis are Anemia, unspecified, Unspecified combined systolic (congestive) and diastolic (congestive) heart failure, Gastrointestinal hemorrhage, unspecified - upper, Dyspnea, Hyperkalemia. - Bed requested for Intensive Care Unit. - Status is Inpatient Admission. hb - Condition is Serious. - Problem is new. - Symptoms have improved. UTI on Admission? Yes Signatures: Dispatcher [employer] EDMS Chantell Woody Kimberly, RN RN kl Anderson, Corey, MD MD cha Baxter, Heather, RN RN hb Henry Joaquin RN hj Corrections: (The following items were deleted from the chart) 12:18 10:34 Hospitalization Ordered by Ken Tang MD for Inpatient Admission. Preliminary diagnosis is Anemia, unspecified; Unspecified combined systolic (congestive) and diastolic (congestive) heart failure; Gastrointestinal hemorrhage, unspecified - upper; Dyspnea. Bed requested for Intensive Care Unit. Status is Inpatient Admission. Condition is Serious. Problem is new. Symptoms have improved. UTI on Admission? No. zeynep 12:32 12:18 11/30/2018 10:34 Hospitalization Ordered by Ken Tang MD for Inpatient zeynep Admission. Preliminary diagnosis is Anemia, unspecified; Unspecified combined systolic (congestive) and diastolic (congestive) heart failure; Gastrointestinal hemorrhage, unspecified - upper; Dyspnea. Bed requested for Intensive Care Unit. Status is Inpatient Admission. Condition is Serious. Problem is new. Symptoms have improved. UTI on Admission? No. irena 12:33 12:32 11/30/2018 10:34 Hospitalization Ordered by Ken Tang MD for Inpatient zeynep Admission. Preliminary diagnosis is Anemia, unspecified; Unspecified combined systolic (congestive) and diastolic (congestive) heart failure; Gastrointestinal hemorrhage, unspecified - upper; Dyspnea; Hyperkalemia. Bed requested for Intensive Care Unit. Status is Inpatient Admission. Condition is Serious. Problem is new. Symptoms have improved. UTI on Admission? No. zeynep 14:06 12:33 11/30/2018 10:34 Hospitalization Ordered by Ken Tang MD for Inpatient hb Admission. Preliminary diagnosis is Anemia, unspecified; Unspecified combined systolic (congestive) and diastolic (congestive) heart failure; Gastrointestinal hemorrhage, unspecified - upper; Dyspnea; Hyperkalemia. Bed requested for Intensive Care Unit. Status is Inpatient Admission. Condition is Serious. Problem is new. Symptoms have improved. UTI on Admission? Yes. zeynep
--- NOTE | 2018-11-30 10:36 | ER ---
Nurse's Notes [facility] Name: Nikky Ocampo Age: 88 yrs Sex: Female : 1930 Arrival Date: 11/30/2018 Time: 09:42 Bed 16 Private MD: Diagnosis: Anemia, unspecified;Unspecified combined systolic (congestive) and diastolic (congestive) heart failure;Gastrointestinal hemorrhage, unspecified-upper;Dyspnea;Hyperkalemia Presentation: 11/30 09:43 Presenting complaint: EMS states: SOB and chest pain that started this morning. SpO2 hb 94% on 3L NC, BP 110/50s, paced 70s, BGL 124. Transition of care: patient was not received from another setting of care. Onset of symptoms was November 30, 2018. Risk Assessment: Do you want to hurt yourself or someone else? Patient reports no desire to harm self or others. Care prior to arrival: Medication(s) given: Albuterol Neb Atrovent Neb x 1. 09:43 Method Of Arrival: EMS: [facility] hb 09:43 Acuity: TASIA 2 hb 10:00 Initial Sepsis Screen: Does the patient meet any 2 criteria? No. Patient's initial hb sepsis screen is negative. Does the patient have a suspected source of infection? No. Patient's initial sepsis screen is negative. Historical: - Allergies: 09:52 Codeine; hb - PMHx: 09:52 CHF; Chronic leukemia; colon cancer; Hypertension; Pacemaker; hb - PSHx: 09:52 Hysterectomy; Cholecystectomy; hb - Immunization history:: Adult Immunizations up to date. - Social history:: Smoking status: Patient/guardian denies using tobacco. - Ebola Screening: : No symptoms or risks identified at this time. - Family history:: not pertinent. Screenin:19 Abuse screen: Denies threats or abuse. Denies injuries from another. Nutritional hb screening: No deficits noted. Tuberculosis screening: No symptoms or risk factors identified. Fall Risk Total [place]arton Fall Scale indicates High Risk Score (45 or more points). Fall prevention measures have been instituted. Side Rails Up X 2 Frequent Obs/Assessments Occuring Family Present and informed to notify staff if the need to leave the bedside As available patient and family educated on Fall Prevention Program and Strategies. Assessment: 10:00 General: Appears in no apparent distress. Behavior is calm, cooperative. Pain: Complains of pain in chest Pain does not radiate. Pain currently is 2 out of 10 on a pain scale. Pain began gradually, 4 hours ago. Neuro: Level of Consciousness is awake, alert, obeys commands, Oriented to person, place, time, situation. Cardiovascular: Heart tones S1 S2 present Capillary refill < 3 seconds Patient's skin is warm and dry. Respiratory: Airway is patent Respiratory effort is even, mildly labored Breath sounds with rhonchi bilaterally. GI: No signs and/or symptoms were reported involving the gastrointestinal system. : No signs and/or symptoms were reported regarding the genitourinary system. EENT: No signs and/or symptoms were reported regarding the EENT system. Derm: Skin is intact, is healthy with good turgor. Musculoskeletal: No signs and/or symptoms reported regarding the musculoskeletal system. 11:00 Reassessment: No changes from previously documented assessment. Patient and/or family hb updated on plan of care and expected duration. Pain level reassessed. 13:00 Reassessment: No changes from previously documented assessment. Patient and/or family hb updated on plan of care and expected duration. Pain level reassessed. 13:30 Reassessment: First unit PRBCs started. NAD. Family at bedside. Awaiting transfer to day surgery for endo at this time. 13:57 Reassessment: Patient appears in no apparent distress at this time. Fist unit PRBCs hb continue. Family remains at bedside. VSS. Vital Signs: 09:50 BP 146 / 50; Pulse 71; Resp 15; Temp 98.2; Pulse Ox 92% on R/A; Pain 2/10; hb 09:52 Temp 97.8(O); mb4 13:10 BP 121 / 38; Pulse 100; Resp 22; Temp 98.6(O); Pulse Ox 100% on Nebulizer Mask; mb4 13:30 BP 116 / 40; Pulse 91; Resp 18; Temp 99; Pulse Ox 100% on 10% Nebulizer Mask; hb 13:35 BP 111 / 38; Pulse 90; Resp 22; Temp 97.9; Pulse Ox 100% on 10% Nebulizer Mask; hb 13:40 BP 119 / 39; Pulse 91; Resp 18; Temp 97.9; Pulse Ox 100% 2 lpm ; hb 13:45 BP 112 / 55; Pulse 97; Resp 22; Temp 98.1; Pulse Ox 100% on 2 lpm NC; hb ED Course: 09:36 EKG done, by electroencephalograph technologist. reviewed by Mahesh Macias MD. at1 09:42 Patient arrived in ED. hb 09:44 Mahesh Macias MD is Attending Physician. zeynep 09:50 Triage completed. hb 09:50 Arm band placed on. hb 09:52 Eulalia Gandhi, AKILA is Primary Nurse. hb 09:52 Placed in gown. Bed in low position. Call light in reach. Side rails up X2. Warm mb4 blanket given. secured entrance monitor on. Pulse ox on. NIBP on. 10:13 XRAY Chest (1 view) In Process Unspecified. EDMS 10:25 Warm blanket given. mb4 10:30 Ken Tang MD is Hospitalizing Provider. zeynep 10:48 Martinez cath inserted, using sterile technique, 16 Fr., by sc, balloon inflated, urine hb specimen collected. 10:53 Missed attempt(s): 20 gauge in right antecubital area. Bleeding controlled, band aid mb4 applied, catheter tip intact. Maintain EMS IV. Dressing intact. Site clean \T\ dry. 11:12 Notified ED physician of a critical lab result(s). HGB 5.3, HCT 15.9, PLATELETS hb 2,854,000. 11:20 Inserted saline lock: 20 gauge in right antecubital area, using aseptic technique. hb 12:03 socks given to patient. applied upon request. mb4 12:19 Oxygen administration via nasal cannula \T\ 2L/min. hb 12:28 Notified ED physician of a critical lab result(s). potassium=5.9. iw 13:46 No provider procedures requiring assistance completed. Patient admitted, IV remains in hb place. Administered Medications: 11:01 Drug: NS 0.9% 1000 ml Route: IV; Rate: 125 ml/hr; Site: right antecubital; hb 11:01 Drug: ProTONIX 80 mg Route: IVP; Site: right antecubital; hb 11:40 Follow up: Response: No adverse reaction hb 11:01 Drug: ProTONIX 8 mg/hr Route: IV; Rate: 25 ml/hr; Site: right antecubital; hb 11:01 Drug: Lasix 20 mg Route: IVP; Site: right antecubital; hb 11:40 Follow up: Response: No adverse reaction hb 12:15 Drug: Rocephin - (cefTRIAXone) 1 grams Route: IVPB; Infused Over: 30 mins; Site: left hb antecubital; 12:15 Follow up: IV Status: Completed infusion; IV Intake: 10ml hb 13:00 Follow up: Response: No adverse reaction hb 13:10 Drug: Albuterol - atroVENT (3:1) (2.5 mg - 0.5 mg) 3 ml Route: Nebulizer; hb 13:45 Follow up: Response: No adverse reaction hb 13:10 Drug: Insulin Regular Human 10 units {Co-Signature: pamela (Jony Gifford RN).} Route: IVP; hb Site: left antecubital; 13:40 Follow up: Response: No adverse reaction hb 13:10 Drug: D50W 50 ml Route: IVP; Site: left antecubital; hb 13:45 Follow up: Response: No adverse reaction hb Intake: 12:15 IV: 10ml; Total: 10ml. hb Outcome: 10:34 Decision to Hospitalize by Provider. zeynep 13:46 Admitted to OR accompanied by nurse, family with patient, via stretcher, with oxygen, hb with chart. 13:46 Condition: stable 13:46 Instructed on the need for admit, Demonstrated understanding of instructions. 14:06 Patient left the ED. hb Signatures: Dispatcher [employer] Mahesh Sol MD MD cha Williams, Irene, RN RN iw Gonzales, Amanda, product demonstrator EKG Tat1 Eulalia Gandhi RN RN hb Baxter, Mackenzie mb4 Jony santiago Corrections: (The following items were deleted from the chart) 12:24 12:23 Notified ED physician of a critical lab result(s). HGB 5.3, HCT 15.9, PLATELETS hb 2,854,000 hb 13:58 12:00 Reassessment: No changes from previously documented assessment. Patient and/or hb family updated on plan of care and expected duration. Pain level reassessed. Admission ordered, awaiting room assignment at this time. hb
[2018-11-30] MEDS ORDERED: PANTOPRAZOLE INJ 80 MG in NA CHLORIDE 0.9% 250 ML IV ONE (10:45)
[2018-11-30] MEDS ORDERED: FUROSEMIDE 40 MG/4 ML VIAL ONE (10:47)
[2018-11-30] MEDS ORDERED: PANTOPRAZOLE 40 MG INJ ONE (10:47)
[2018-11-30 11:06] LABS: Absolute Lymphocytes (CBC) 3.6 K/uL (0.7-4.9); Absolute Monocytes 1.6 K/uL (0.1-1.3); Absolute Neutrophil 6.1 K/uL (1.8-8.0); Basophils % 0.9 % (0-1.3); Eosinophils % 2.6 % (0-4.4); Hematocrit 15.9 % (36.0-45.0); Lymphocytes % 30.6 % (15.3-44.8); MPV 8.1 fL (7.6-11.3); Monocytes % 13.8 % (3.3-12.3); RBC Red Blood Cell Count 1.49 M/uL (3.86-4.86)
[2018-11-30 11:09] LABS: Protime INR 1.16
[2018-11-30 11:27] LABS: Anisocytosis 3+; Blood Morphology Comment NOTED (NOT SEEN); Macrocytosis 1+; Platelet Estimate INCR; Platelets, Giant MANY
[2018-11-30 11:28] LABS: Basophilic Stippling 1+; Hypochromasia 1+; Polychromasia 1+
[2018-11-30] MEDS ORDERED: CEFTRIAXONE/SWI 1gm 1 GM/10 ML SYR ONE (11:51)
[2018-11-30] MEDS: FUROSEMIDE 20 MG/ 2ML VIAL IV ONE (11:58)
[2018-11-30] MEDS ORDERED: NA CHLORIDE 0.9% 250 ML IV SCH (12:00)
[2018-11-30 12:28] LABS: ALT/SGPT 15 U/L (12-78); AST/SGOT 45 U/L (15-37); Albumin 3.3 g/dL (3.4-5.0); Alkaline Phosphatase 65 U/L (45-117); BUN Blood Urea Nitrogen 87 mg/dL (7-18); Bicarbonate 19 mmol/L (21-32); Bilirubin Direct < 0.1 mg/dL (0-0.2); Bilirubin Total 0.5 mg/dL (0.2-1.0); Glucose Level 125 mg/dL (74-106); Lipase 113 U/L (73-393); Magnesium 2.9 mg/dL (1.8-2.4); NT PRO-BNP 5973 pg/mL (<450); Protein, Total 6.3 g/dL (6.4-8.2); Sodium Level 137 mmol/L (136-145); Troponin (Emerg Dept Use Only) < 0.02 ng/mL (0.0-0.045)
[2018-11-30 12:30] LABS: Potassium 5.9 mmol/L (3.5-5.1)
[2018-11-30] MEDS ORDERED: D50W 25 GM/50 ML SYRINGE IV ONE ×2 (12:57→13:07)
[2018-11-30] MEDS ORDERED: CALCIUM GLUC 10% INJ 4.65 MEQ in NA CHLORIDE 0.9% 100 ML IV ONE (12:57)
[2018-11-30] MEDS ORDERED: GLUCAGON 1 MG/VIAL IM PRN (12:58)
[2018-11-30] MEDS ORDERED: D50W 25 GM/50 ML SYRINGE IV PRN (12:58)
[2018-11-30] MEDS ORDERED: INSULIN -REGULAR HUMAN 50 UNIT/0.5 ML ML IV ONE (12:58)
[2018-11-30] MEDS ORDERED: INSULIN -REGULAR HUMAN 50 UNIT/0.5 ML ML ONE ×2 (13:06→13:08)
[2018-11-30] MEDS ORDERED: ALBUTEROL 2.5 MG/3 ML NEB SOL ONE (13:07)
[2018-11-30] MEDS ORDERED: IPRATROPIUM BROM 0.5MG/2.5ML ONE (13:07)
[2018-11-30] MEDS ORDERED: NA CHLORIDE 0.9% 250 ML ONE (13:10)
[2018-11-30 14:08] LABS: Urine Blood TRACE (NEG); Urine Glucose TRACE (NEG); Urine Protein 2+ (NEG); Urine Specific Gravity 1.015 (1.005-1.030)
--- NOTE | 2018-11-30 15:20 | EKG ---
Test Date: 2018-11-30 Test Time: 09:36:36 Track Supervisor: SCOTTY MEASUREMENT RESULTS: Intervals: Rate: 77 CO: 132 QRSD: 106 QT: 370 QTc: 418 [place]: P: 26 CO: 132 QRS: -40 T: 124 INTERPRETIVE STATEMENTS: Normal sinus rhythm Left axis deviation Non specific T wave abnormality Abnormal ECG Compared to ECG 10/04/2018 23:00:17 Atrial-sensed ventricular-paced complex(es) or rhythm no longer present Electronically Signed On 11-30-18 15:20:03 CDT by Marcello Choi
[2018-11-30] MEDS ORDERED: LIDOCAINE 1% MPF 5 ML VIAL ONE (16:02)
[2018-11-30] MEDS ORDERED: PROPOFOL 200 MG/20 ML VIAL IV ONE (16:02)
[2018-11-30] MEDS ORDERED: DIPHENHYDRAMINE 50 MG/ML VIAL IV SCH (18:00)
[2018-11-30] MEDS ORDERED: ACETAMINOPHEN 325 MG TABLET PO SCH (18:00)
[2018-11-30] MEDS ORDERED: GABAPENTIN 400 MG CAP PO ONE (18:46)
[2018-11-30] MEDS ORDERED: PNEUMOCOCCAL VACCINE 0.5 ML IMVAC ONE (19:00)
[2018-11-30] MEDS: TRAMADOL HCL 50 MG TAB PO PRN (19:26)
[2018-11-30] MEDS: PANTOPRAZOLE INJ 80 MG in NA CHLORIDE 0.9% 250 ML IV SCH (21:00)
[2018-11-30] MEDS ORDERED: DIGOXIN 0.125 MG TABLET PO SCH (22:00)
--- NOTE | 2018-11-30 23:50 | HP ---
Date of Admission: 11/30/2018 Chief Complaint: GI bleed. Code Status: Do not resuscitate. Toll Collector: Dr. Vizcarra with Gastroenterology. History Of Present Illness: The patient is an 88-year-old female with past medical history of CML, on treatment as well as hydroxy urea. The patient also has developed complications from her treatment including GI bleed, most recently in the hospital in September 2018, had been scoped previously. The patient states that she woke up this morning, had a large melenic stool, has been feeling lightheaded and dizzy. The patient's symptoms were constant, moderate, progressively worsening. She came into the ER for further evaluation. Her workup revealed hemoglobin of 5.3, platelets were 2800. This is the lowest her platelets have been, have not been able to be reduced further than that due to her CML. Per Dr. Conner and Dr. Jolley, she has been progressing in her disease and has not accepted hospice at this time. Other workup showed a potassium of 5.9. Her chest x-ray showed some volume overload pattern. The patient was given Lasix and started on Protonix drip in the ER, she was also given a dose of Rocephin. The patient was then referred for admission. When I saw the patient, she was awake, alert, in some mild distress, lethargic appearing. Past Medical History: 1. Diastolic congestive heart failure. 2. GERD. 3. Atrial fibrillation. The patient is on anticoagulation with Eliquis, last dose yesterday. 4. Peripheral neuropathy. 5. CML. 6. Vitamin D deficiency. 7. Hypothyroidism. 8. Insomnia. 9. Essential hypertension. 10. Chronic renal disease. 11. Angiodysplasia of the intestine with hemorrhage. Past Surgical History: 1. Hysterectomy. 2. Back surgery x2. 3. Cholecystectomy. 4. Bladder surgery. 5. Carotid surgery. Allergies: TO CODEINE. Medications: List reviewed. Social History: The patient lives alone at home by herself, has good social support. Denies any tobacco use or alcohol use. Family History: Mother had cancer and liver disease. Father also had throat cancer and liver disease. Review of Systems: A 10-point system reviewed, negative except as per HPI. Physical Examination: Vital Signs: Blood pressure 146/50, pulse 71, respirations 15, O2 92% on room air. General: Awake, alert, oriented x3. Some mild distress, pale and ill-appearing , frail, elderly female. HEENT: Normocephalic, atraumatic. PERRLA. EOMI. Dry mucous membranes. Oropharynx is clear. Poor dentition. Conjunctivae anicteric. Neck: Supple. No JVD. Trachea midline. CV: S1 and S2. Peripheral pulses present. Respiratory: Diminished breath sounds. No wheezing or stridor Gastrointestinal : Abdomen is soft. Mild tenderness to palpation. No guarding or rigidity. Bowel sounds positive. Extremities: No clubbing, cyanosis, or edema. No calf tenderness. Neuro: Cranial nerves 2 through 12 intact grossly. No focal neurological deficit. Speech is normal. Strength: Symmetric in bilateral upper and lower extremities. Sensation: Decreased to light touch in the lower extremities. Skin: No rashes. The patient has some mild skin tenting. Psych: Mood is depressed. Affect is congruent with mood. Insight and judgment are good. Laboratory Data: UA is pending. Sodium 137, potassium 5.9, chloride 112, CO2 19, BUN 87, creatinine 1.07, glucose 125, calcium 8.3, magnesium 2.9. BNP 5973. INR 1.16. WBC 11.7, H and H are 5.3 and 15.9, platelets 2854. Imaging studies: Chest x-ray, personally reviewed, shows mild CHF volume overload pattern. The patient has chronic interstitial lung disease at baseline. Assessment: An 88-year-old female with: 1. Acute gastrointestinal bleed. The patient had melenic stools, likely secondary to Eliquis on top of her history of arteriovenous malformations. Dr. Vizcarra has been consulted, he will be scoping the patient today. 2. Acute blood loss anemia secondary to above. We will transfuse 2 units of PRBCs and give 20 of Lasix after each unit. We will also proceed with 1 unit of FFP to help reverse Eliquis. We will continue to monitor hemoglobin and hematocrit post transfusion. 3. Chronic myeloid leukemia, stage 3. The patient not wanting hospice at this time. I spoke with Dr. Jolley who sees the patient as an outpatient. She agrees with blood transfusion and FFP. The patient has been on treatment for chronic myeloid leukemia and her platelets are not dropping below this level. Previously has had platelets as high as 3 million. She will be available for further questions. 4. Congestive heart failure, systolic dysfunction. Last known ejection fraction from April of 2018 was 50% to 55%. The patient's BNP is elevated. Chest x-ray shows congestive heart failure. Will need to be diligent regarding volume overload. The patient will be receiving Lasix after every transfusion of blood and FFP. 5. Status post AICD and pacemaker. 6. Hypertensive heart disease. 7. Moderate pulmonary hypertension. 8. History of chronic myeloid leukemia , currently on treatment. We will hold hydroxyurea for now. 9. Hyperkalemia. We will proceed with calcium gluconate, albuterol, dextrose , and sodium bicarbonate. 10. Gastroesophageal reflux disease without esophagitis. We will continue with PPI for now. 11. Peripheral neuropathy. 12. Hypothyroidism. Continue Synthroid. 13. Essential hypertension. We will hold blood pressure medications for now due to severe anemia. 14. Chronic kidney disease. 15. History of arteriovenous malformation of the intestine. 16. Deep vein thrombosis prophylaxis with SCDs no chemical anticoagulation. Plan: Admit the patient to ICU. Place as inpatient. Length of stay greater than 2 midnights. The patient has a very poor prognosis. Discussed with family. Daughter at the bedside. Continuous Miner Operator Helper at the bedside as well. The patient is a do not resuscitate. /ZEKE Voice ID: [id number]
[2018-12-01] MEDS: FUROSEMIDE 20 MG/ 2ML VIAL IV ONE (00:12)
--- NOTE | 2018-12-01 03:09 | OP ---
Surgeon: Ronald Vizcarra MD Procedure Performed: Esophagogastroduodenoscopy. Indications For Procedure: Severe symptomatic anemia, suspected bleed. Plan For Anesthesia: Monitored anesthesia care. Complexity: Very high due to patient's severe comorbidities. Additionally, the patient was seen by Dr. Milian, Anesthesiology. Before the procedure, he was concerned about the patient's tachycardia and overall health, but due to the nature of the procedure, I have decided to proceed with the case t o rule out any acute upper GI source of bleeding. Technique: After obtaining informed consent from the patient explaining risks and complications whic h include but not limited to bleeding, infection, perforation, and anesthesia complication, the patie nt was placed in the left lateral position and sedation was given. From then on, the scope was advan rishabh into the mouth and carefully guided up till the second portion of the duodenum. No evidence of a ctive bleeding seen. Actually, clear bile was seen in the duodenum. Due to the recent Eliquis, no b iopsies were taken. After the completion of examination, the scope and equipment were withdrawn and procedure terminated in a safe manner. Findings: Esophagus: No gross lesion seen in the entire esophagus. Stomach: Few patchy erosions w ere seen. No AVMs were seen. Duodenum: The bulb, second portion appeared normal. Complications: None. Tolerance: Tolerance to anesthesia reasonable. Postoperative Diagnosis: Gastric erosions, otherwise no other acute pathology. Plan: 1.Transfer back to the floor or ICU as per primary team's discretion. Continue PPI. 2.No further intervention from GI due to her high risk and after discussion with the patient and gomez dugan, I do not see any upper GI source of bleeding. Her symptoms probably are related to leukemia as well as the treatment. Of course we cannot now rule out any small bowel source of bleeding in combin ation with anticoagulation, but for now we will hold off on any further intervention. US/MODL Voice ID: [id number] Report ID: [id number]
[2018-12-01 05:50] LABS: Hematocrit 21.3 % (36.0-45.0)
[2018-12-01 05:53] LABS: Protime INR 1.07
[2018-12-01] MEDS: LEVOTHYROXINE SOD 0.05 MG TABLET PO SCH (06:30)
[2018-12-01] MEDS: PANTOPRAZOLE INJ 80 MG in NA CHLORIDE 0.9% 250 ML IV SCH ×2 (07:28→17:16)
[2018-12-01] MEDS: LIDOCAINE HCL TOP SCH ×4 (08:01→20:43)
[2018-12-01 09:03] LABS: Absolute Lymphocytes (CBC) 1.8 K/uL (0.7-4.9); Absolute Monocytes 1.4 K/uL (0.1-1.3); Absolute Neutrophil 6.4 K/uL (1.8-8.0); Hematocrit 22.4 % (36.0-45.0); Lymphocytes % 18.1 % (15.3-44.8); MPV 7.7 fL (7.6-11.3); Monocytes % 14.1 % (3.3-12.3); RBC Red Blood Cell Count 2.33 M/uL (3.86-4.86)
[2018-12-01 09:18] LABS: Bilirubin Total 0.6 mg/dL (0.2-1.0); Potassium 4.1 mmol/L (3.5-5.1); Protein, Total 5.8 g/dL (6.4-8.2)
[2018-12-01] MEDS: ALLOPURINOL 300 MG TAB PO SCH (09:20)
--- NOTE | 2018-12-01 10:16 | RAD REPORT ---
EXAM DESCRIPTION: RAD - Chest Single View - 12/01/2018 10:07 am CLINICAL HISTORY: CHF COMPARISON: November 30 TECHNIQUE: AP portable chest image was obtained [id number] hours . FINDINGS: Interstitial and scattered alveolar opacities are present not substantially different from comparison. Lung base findings are more pronounced on the left due to the elevated left hemidiaphrag m. No new or progressive finding. Mild cardiomegaly is present similar to comparison. Upper lobe vasc ulature is stable. Defibrillator is in place. There is no new tube or line identified. No pneumothora x or enlarging pleural effusion. IMPRESSION: Stable chest examination from prior day imaging. Mild CHF/ volume overload findings remain.
[2018-12-01] MEDS: TRAMADOL HCL 50 MG TAB PO PRN ×2 (10:32→22:58)
[2018-12-01] MEDS ORDERED: GABAPENTIN 400 MG CAP PO ONE (10:34)
[2018-12-01] MEDS: CEFTRIAXONE/SWI 1gm 1 GM/10 ML SYR IV SCH (12:07)
[2018-12-01] MEDS: GABAPENTIN 400 MG CAP PO SCH ×3 (12:47→20:42)
--- NOTE | 2018-12-01 15:43 | P.PN ---
Subjective Date of Service: 12/01/18 Chief Complaint: GI bleed Patient seen and examined at bedside. Family at bedside. Chart reviewed and case discussed with nursing staff. Patient reports improvement, states she is feeling great this morning. She is requesting her gabapentin 800 mg q.i.d. as she takes at home. Denies any other complaints at this time. No acute events noted overnight Review of Systems 10-point ROS is otherwise unremarkable Physical Examination - Vital Signs Temperature: 98 F Blood Pressure: 119/49 Pulse: 119 Respirations: 13 Pulse Ox (%): 100 - Physical Exam General: Alert, In no apparent distress, Cachectic, Other (Elderly, frail) HEENT: Atraumatic, PERRLA, EOMI Neck: Supple, JVD not distended Respiratory: Clear to auscultation bilaterally, Diminished Cardiovascular: Regular rate/rhythm, Normal S1 S2 Gastrointestinal: Normal bowel sounds, No tenderness Musculoskeletal: No tenderness Integumentary: No rashes Neurological: Normal speech, Normal tone, Normal affect Lymphatics: No axilla or inguinal lymphadenopathy Assessment And Plan - Current Problems (Diagnosis) (1) Acute GI bleeding Current Visit: Yes Status: Acute Plan: Patient with melanotic stools, likely secondary italic was on 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 Dr. Vizcrara, gastroenterology, consulted. Recommendations appreciated. Patient is status post EGD on 11/30/2018. The EGD without any acute active bleeding. We will continue Protonix. We will continue to monitor H&H. (2) Acute blood loss anemia Current Visit: Yes Status: Acute Plan: Likely secondary to acute GI bleed. She is status post 2 units of PRBCs and 1 unit FFP. H&H stable posttransfusion. Continue to monitor hemoglobin and hematocrit at 4:00 p.m.. If stable, will transfer patient to the floor. (3) Congestive heart failure Onset Date: 09/04/18 Current Visit: No Status: Chronic Plan: Systolic dysfunction. Last known ejection fraction from 04/2018 was 50-55%. Elevated BNP at this time along with chest x-ray with congestive heart failure changes. Continue to monitor strict I and O's. Continue IV Lasix Daily weights (4) Myelogenous leukemia, chronic Onset Date: 11/01/15 Current Visit: No Status: Chronic Plan: Stage 3. The patient not wanting hospice at this time. Case was discussed with Dr. Jolley who sees the patient as an outpatient. She agreed with blood transfusion and FFP. The patient has been on treatment for chronic myeloid leukemia and her platelets are not dropping below this level. Previously has had platelets as high as 3 million. She will be available for further questions. (5) Presence of combination internal cardiac defibrillator (ICD) and pacemaker Current Visit: Yes Status: Acute Plan: Stable (6) Peripheral neuropathy Current Visit: No Status: Chronic Plan: Stable, continue home medications Qualifiers: Peripheral neuropathy type: mononeuropathy, unspecified Qualified Code(s): G58.9 - Mononeuropathy, unspecified (7) Hypertension Current Visit: No Status: Chronic Plan: Continue home medications. Continue to monitor and adjust as needed Qualifiers: Hypertension type: essential hypertension Qualified Code(s): I10 - Essential (primary) hypertension (8) Hypothyroidism Onset Date: 09/04/18 Current Visit: No Status: Chronic Plan: Stable. Continue home medications Qualifiers: Hypothyroidism type: unspecified Qualified Code(s): E03.9 - Hypothyroidism , unspecified (9) GERD (gastroesophageal reflux disease) Onset Date: 09/04/18 Current Visit: No Status: Chronic Plan: We will continue PPI at this time Qualifiers: Esophagitis presence: without esophagitis Qualified Code(s): K21.9 - Gastro -esophageal reflux disease without esophagitis (10) CKD (chronic kidney disease) stage 4, GFR 15-29 ml/min Onset Date: 11/01/15 Current Visit: No Status: Chronic Plan: Stable at this time. Will continue to monitor (11) Hyperkalemia Current Visit: Yes Status: Resolved - Plan DVT prophylaxis: On hold, due to GI bleed GI prophylaxis: PPI Diet: NPO Disposition: Overall, very poor prognosis. Patient is a DNR. Pending CBC check at 4:00 p.m., if stable, will transfer to floor.
[2018-12-01 16:20] LABS: Hematocrit 20.9 % (36.0-45.0)
[2018-12-01] MEDS ORDERED: LIDOCAINE 1% MPF 5 ML VIAL ONE (20:10)
[2018-12-02] MEDS: PANTOPRAZOLE INJ 80 MG in NA CHLORIDE 0.9% 250 ML IV SCH ×5 (03:00→23:00)
[2018-12-02] MEDS ORDERED: FUROSEMIDE 20 MG/ 2ML VIAL IV ONE ×2 (05:46)
[2018-12-02] MEDS: LEVOTHYROXINE SOD 0.05 MG TABLET PO SCH (06:06)
[2018-12-02 08:02] LABS: Hematocrit 28.9 % (36.0-45.0)
[2018-12-02] MEDS: GABAPENTIN 400 MG CAP PO SCH ×4 (08:16→20:44)
[2018-12-02] MEDS: ALLOPURINOL 300 MG TAB PO SCH (08:16)
[2018-12-02] MEDS: DIGOXIN 0.125 MG TABLET PO SCH (08:16)
[2018-12-02] MEDS: CEFTRIAXONE/SWI 1gm 1 GM/10 ML SYR IV SCH (08:16)
[2018-12-02] MEDS: LIDOCAINE HCL TOP SCH ×4 (08:17→20:44)
--- NOTE | 2018-12-02 12:59 | P.PN ---
Subjective Date of Service: 12/02/18 Chief Complaint: GI bleed Subjective: Improving Patient seen and examined at bedside. Family at bedside. Chart reviewed and case discussed with nursing staff. Patient reports improvement, states she is feeling great this morning. No bowel movement today. Denies any other complaints at this time. No acute events noted overnight Review of Systems 10-point ROS is otherwise unremarkable Physical Examination - Vital Signs Temperature: 98.2 F Blood Pressure: 127/47 Pulse: 62 Respirations: 14 Pulse Ox (%): 94 - Physical Exam General: Alert, In no apparent distress, Cachectic, Other (Elderly and frail) Respiratory: Clear to auscultation bilaterally, Normal air movement Cardiovascular: Regular rate/rhythm, Normal S1 S2 Gastrointestinal: Normal bowel sounds, No tenderness Musculoskeletal: No tenderness Assessment And Plan - Current Problems (Diagnosis) (1) Acute GI bleeding Current Visit: Yes Status: Acute Plan: Patient with melanotic stools, likely secondary to Elliquis on 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 Dr. Vizcarra, gastroenterology, consulted. Recommendations appreciated. Patient is status post EGD on 11/30/2018. The EGD without any acute active bleeding. We will continue Protonix. We will continue to monitor H&H. (2) Acute blood loss anemia Current Visit: Yes Status: Acute Plan: Likely secondary to acute GI bleed. She is status post 4 units of PRBCs (this stay) and 1 unit FFP. H&H stable posttransfusion. Continue to monitor hemoglobin and hematocrit at 2:00 p.m. (3) Congestive heart failure Onset Date: 09/04/18 Current Visit: No Status: Chronic Plan: Systolic dysfunction. Last known ejection fraction from 04/2018 was 50-55%. Elevated BNP at this time along with chest x-ray with congestive heart failure changes. Continue to monitor strict I and O's. Continue IV Lasix Daily weights (4) Myelogenous leukemia, chronic Onset Date: 11/01/15 Current Visit: No Status: Chronic Plan: Stage 3. The patient not wanting hospice at this time. Case was discussed with Dr. Jolley who sees the patient as an outpatient. She agreed with blood transfusion and FFP. The patient has been on treatment for chronic myeloid leukemia and her platelets are not dropping below this level. Previously has had platelets as high as 3 million. She will be available for further questions. (5) Presence of combination internal cardiac defibrillator (ICD) and pacemaker Current Visit: Yes Status: Acute Plan: Stable, continue home medications (6) Peripheral neuropathy Current Visit: No Status: Chronic Plan: Stable, continue home medications Qualifiers: Peripheral neuropathy type: mononeuropathy, unspecified Qualified Code(s): G58.9 - Mononeuropathy, unspecified (7) Hypertension Current Visit: No Status: Chronic Plan: Continue home medications. Continue to monitor and adjust as needed Qualifiers: Hypertension type: essential hypertension Qualified Code(s): I10 - Essential (primary) hypertension (8) Hypothyroidism Onset Date: 09/04/18 Current Visit: No Status: Chronic Plan: Stable. Continue home medications Qualifiers: Hypothyroidism type: unspecified Qualified Code(s): E03.9 - Hypothyroidism , unspecified (9) GERD (gastroesophageal reflux disease) Onset Date: 09/04/18 Current Visit: No Status: Chronic Plan: We will continue PPI at this time Qualifiers: Esophagitis presence: without esophagitis Qualified Code(s): K21.9 - Gastro -esophageal reflux disease without esophagitis (10) CKD (chronic kidney disease) stage 4, GFR 15-29 ml/min Onset Date: 11/01/15 Current Visit: No Status: Chronic Plan: Stable at this time. Will continue to monitor (11) Hyperkalemia Current Visit: Yes Status: Resolved - Plan DVT prophylaxis: On hold, due to GI bleed GI prophylaxis: PPI Diet: Full liquid Disposition: Overall, very poor prognosis. Patient is a DNR. Pending CBC check at 2:00 p.m., if stable, will transfer to floor.
[2018-12-02 14:18] LABS: Hematocrit 32.6 % (36.0-45.0)
[2018-12-02] MEDS: TRAMADOL HCL 50 MG TAB PO PRN (15:44)
[2018-12-02] MEDS: Meropenem 500 MG in NA CHLORIDE 0.9% 100 ML IV SCH (16:21)
[2018-12-02] MEDS ORDERED: Meropenem 500 MG VIAL IV SCH (17:00)
[2018-12-03] MEDS: Meropenem 500 MG in NA CHLORIDE 0.9% 100 ML IV SCH ×3 (00:46→16:50)
[2018-12-03] MEDS: TRAMADOL HCL 50 MG TAB PO PRN ×3 (03:06→23:34)
[2018-12-03] MEDS: PANTOPRAZOLE INJ 80 MG in NA CHLORIDE 0.9% 250 ML IV SCH ×3 (03:47→18:55)
[2018-12-03] MEDS: LEVOTHYROXINE SOD 0.05 MG TABLET PO SCH (05:54)
[2018-12-03] MEDS: DIGOXIN 0.125 MG TABLET PO SCH (09:00)
[2018-12-03] MEDS: LIDOCAINE HCL TOP SCH ×4 (09:00→21:00)
[2018-12-03] MEDS: GABAPENTIN 400 MG CAP PO SCH ×5 (10:06→23:34)
[2018-12-03] MEDS: ALLOPURINOL 300 MG TAB PO SCH (10:07)
--- NOTE | 2018-12-03 12:57 | P.PN ---
Subjective Date of Service: 12/03/18 Chief Complaint: GI bleed Subjective: Tolerating diet, Improving, Working w/ PT Patient seen and examined at bedside. Family at bedside. Chart reviewed and case discussed with nursing staff. Patient reports improvement, states she is feeling great this morning. Sitting up in chair, working with physical therapy Noted 1 bowel movement today, nonbloody Denies any other complaints at this time. No acute events noted overnight Review of Systems 10-point ROS is otherwise unremarkable Physical Examination - Vital Signs Temperature: 97 F Blood Pressure: 140/63 Pulse: 65 Respirations: 15 Pulse Ox (%): 98 - Physical Exam General: Alert, In no apparent distress, Oriented x3, Other (Elderly, frail) HEENT: Atraumatic, PERRLA, EOMI Neck: Supple, JVD not distended Respiratory: Clear to auscultation bilaterally, Normal air movement Cardiovascular: Regular rate/rhythm, Normal S1 S2 Gastrointestinal: Normal bowel sounds, No tenderness Assessment And Plan - Current Problems (Diagnosis) (1) Acute GI bleeding Current Visit: Yes Status: Acute Plan: Patient with melanotic stools, likely secondary to Elliquis on 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 Dr. Vizcarra, gastroenterology, consulted. Recommendations appreciated. Patient is status post EGD on 11/30/2018. The EGD without any acute active bleeding. We will continue Protonix. We will continue to monitor H&H. Patient with 1 nonbloody bowel movement this morning (2) Acute blood loss anemia Current Visit: Yes Status: Acute Plan: Likely secondary to acute GI bleed. She is status post 4 units of PRBCs (this stay) and 1 unit FFP. H&H stable posttransfusion. Continue to monitor hemoglobin and hematocrit (3) Congestive heart failure Onset Date: 09/04/18 Current Visit: No Status: Chronic Plan: Systolic dysfunction. Last known ejection fraction from 04/2018 was 50-55%. Elevated BNP at this time along with chest x-ray with congestive heart failure changes. Continue to monitor strict I and O's. Continue IV Lasix Daily weights (4) Myelogenous leukemia, chronic Onset Date: 11/01/15 Current Visit: No Status: Chronic Plan: Stage 3. The patient not wanting hospice at this time. Case was discussed with Dr. Jolley who sees the patient as an outpatient. She agreed with blood transfusion and FFP. The patient has been on treatment for chronic myeloid leukemia and her platelets are not dropping below this level. Previously has had platelets as high as 3 million. She will be available for further questions. (5) Presence of combination internal cardiac defibrillator (ICD) and pacemaker Current Visit: Yes Status: Acute Plan: Stable, continue home medications (6) Peripheral neuropathy Current Visit: No Status: Chronic Plan: Stable, continue home medications (gabapentin 800 QID) Qualifiers: Peripheral neuropathy type: mononeuropathy, unspecified Qualified Code(s): G58.9 - Mononeuropathy, unspecified (7) Hypertension Current Visit: No Status: Chronic Plan: Continue home medications. Continue to monitor and adjust as needed Qualifiers: Hypertension type: essential hypertension Qualified Code(s): I10 - Essential (primary) hypertension (8) Hypothyroidism Onset Date: 09/04/18 Current Visit: No Status: Chronic Plan: Stable. Continue home medications Qualifiers: Hypothyroidism type: unspecified Qualified Code(s): E03.9 - Hypothyroidism , unspecified (9) GERD (gastroesophageal reflux disease) Onset Date: 09/04/18 Current Visit: No Status: Chronic Plan: We will continue PPI at this time Qualifiers: Esophagitis presence: without esophagitis Qualified Code(s): K21.9 - Gastro -esophageal reflux disease without esophagitis (10) CKD (chronic kidney disease) stage 4, GFR 15-29 ml/min Onset Date: 11/01/15 Current Visit: No Status: Chronic Plan: Stable at this time. Will continue to monitor (11) Hyperkalemia Current Visit: Yes Status: Resolved - Plan DVT prophylaxis: On hold, due to GI bleed GI prophylaxis: PPI Diet: Full liquid Disposition: Overall, very poor prognosis. Patient is a DNR. Pending CBC check at 2:00 p.m., if stable, will transfer to floor.
[2018-12-03 13:08] LABS: Absolute Lymphocytes (CBC) 1.9 K/uL (0.7-4.9); Absolute Monocytes 1.4 K/uL (0.1-1.3); Absolute Neutrophil 3.7 K/uL (1.8-8.0); Basophils % 1.7 % (0-1.3); Eosinophils % 3.9 % (0-4.4); Hematocrit 33.6 % (36.0-45.0); Lymphocytes % 25.4 % (15.3-44.8); MPV 7.7 fL (7.6-11.3); Monocytes % 18.8 % (3.3-12.3); RBC Red Blood Cell Count 3.46 M/uL (3.86-4.86)
[2018-12-03 13:17] LABS: Albumin 3.1 g/dL (3.4-5.0); Bilirubin Total 0.6 mg/dL (0.2-1.0); Potassium 3.9 mmol/L (3.5-5.1); Protein, Total 6.2 g/dL (6.4-8.2)
[2018-12-04] MEDS: Meropenem 500 MG in NA CHLORIDE 0.9% 100 ML IV SCH ×3 (00:23→17:35)
[2018-12-04] MEDS: LEVOTHYROXINE SOD 0.05 MG TABLET PO SCH (06:14)
[2018-12-04] MEDS: PANTOPRAZOLE INJ 80 MG in NA CHLORIDE 0.9% 250 ML IV SCH ×3 (06:15→20:41)
[2018-12-04 06:55] VITALS: BMI 19.8
[2018-12-04] MEDS: LIDOCAINE HCL TOP SCH ×4 (09:00→20:41)
[2018-12-04] MEDS: GABAPENTIN 400 MG CAP PO SCH ×3 (10:06→17:33)
[2018-12-04] MEDS: DIGOXIN 0.125 MG TABLET PO SCH (10:07)
[2018-12-04] MEDS: ALLOPURINOL 300 MG TAB PO SCH (10:07)
[2018-12-04] MEDS: TRAMADOL HCL 50 MG TAB PO PRN ×2 (10:21→17:33)
[2018-12-04 12:30] LABS: Potassium 3.8 mmol/L (3.5-5.1)
[2018-12-04 12:48] LABS: Absolute Monocytes 1.2 K/uL (0.1-1.3); Absolute Neutrophil 2.8 K/uL (1.8-8.0); Basophils % 1.2 % (0-1.3); Eosinophils % 3.6 % (0-4.4); Hematocrit 31.7 % (36.0-45.0); Lymphocytes % 31.3 % (15.3-44.8); MPV 7.7 fL (7.6-11.3); Monocytes % 18.8 % (3.3-12.3); RBC Red Blood Cell Count 3.27 M/uL (3.86-4.86)
[2018-12-04 14:45] LABS: Anisocytosis 2+; Blood Morphology Comment NOTED (NOT SEEN); Macrocytosis 2+; Platelet Estimate INCR; Platelets, Giant NOTED; Poikilocytosis 1+; Polychromasia 1+
--- NOTE | 2018-12-04 15:01 | P.PN ---
Subjective Date of Service: 12/04/18 Chief Complaint: GI bleed Subjective: No C/O voiced, Improving, Working w/ PT Patient seen and examined at bedside. Family at bedside. Chart reviewed and case discussed with nursing staff. Patient reports improvement, states she is feeling great this morning. Sitting up in chair, working well with physical therapy, ambulating around hallway Noted non bloody bowel movement today Denies any other complaints at this time. No acute events noted overnight Review of Systems 10-point ROS is otherwise unremarkable Physical Examination - Vital Signs Temperature: 97.6 F Blood Pressure: 124/58 Pulse: 63 Respirations: 17 Pulse Ox (%): 92 - Physical Exam General: Alert, In no apparent distress, Oriented x3, Cachectic, Other (Elderly , frail) HEENT: Atraumatic, PERRLA, EOMI Respiratory: Clear to auscultation bilaterally, Normal air movement Cardiovascular: Regular rate/rhythm, Normal S1 S2 Gastrointestinal: Normal bowel sounds, No tenderness Assessment And Plan - Current Problems (Diagnosis) (1) Acute GI bleeding Current Visit: Yes Status: Acute Plan: Patient with melanotic stools, likely secondary to Elliquis on 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 Dr. Vizcarra, gastroenterology, consulted. Recommendations appreciated. Patient is status post EGD on 11/30/2018. The EGD without any acute active bleeding. We will continue Protonix. We will continue to monitor H&H. Patient continues with non-bloody bowel movement this morning (2) Acute blood loss anemia Current Visit: Yes Status: Acute Plan: Likely secondary to acute GI bleed. She is status post 4 units of PRBCs (this stay) and 1 unit FFP. H&H continues to be stable posttransfusion. Continue to monitor hemoglobin and hematocrit (3) Congestive heart failure Onset Date: 09/04/18 Current Visit: No Status: Chronic Plan: Systolic dysfunction. Last known ejection fraction from 04/2018 was 50-55%. Elevated BNP at this time along with chest x-ray with congestive heart failure changes. Continue to monitor strict I and O's. Continue IV Lasix Daily weights (4) Myelogenous leukemia, chronic Onset Date: 11/01/15 Current Visit: No Status: Chronic Plan: Stage 3. The patient not wanting hospice at this time. Case was discussed with Dr. oJlley who sees the patient as an outpatient. She agreed with blood transfusion and FFP. The patient has been on treatment for chronic myeloid leukemia and her platelets are not dropping below this level. Previously has had platelets as high as 3 million. She will be available for further questions. (5) Presence of combination internal cardiac defibrillator (ICD) and pacemaker Current Visit: Yes Status: Acute Plan: Stable, continue home medications (6) Peripheral neuropathy Current Visit: No Status: Chronic Plan: Stable, continue home medications (gabapentin 800 QID) Qualifiers: Peripheral neuropathy type: mononeuropathy, unspecified Qualified Code(s): G58.9 - Mononeuropathy, unspecified (7) Hypertension Current Visit: No Status: Chronic Plan: Continue home medications. Continue to monitor and adjust as needed Qualifiers: Hypertension type: essential hypertension Qualified Code(s): I10 - Essential (primary) hypertension (8) Hypothyroidism Onset Date: 09/04/18 Current Visit: No Status: Chronic Plan: Stable. Continue home medications Qualifiers: Hypothyroidism type: unspecified Qualified Code(s): E03.9 - Hypothyroidism , unspecified (9) GERD (gastroesophageal reflux disease) Onset Date: 09/04/18 Current Visit: No Status: Chronic Plan: We will continue PPI at this time Qualifiers: Esophagitis presence: without esophagitis Qualified Code(s): K21.9 - Gastro -esophageal reflux disease without esophagitis (10) CKD (chronic kidney disease) stage 4, GFR 15-29 ml/min Onset Date: 11/01/15 Current Visit: No Status: Chronic Plan: Stable at this time. Will continue to monitor (11) Hyperkalemia Current Visit: Yes Status: Resolved - Plan DVT prophylaxis: On hold, due to GI bleed GI prophylaxis: PPI Diet: Full liquid Disposition: Overall, very poor prognosis. Patient is a DNR. Continues to be stable on the floor. PICC line placement ordered for IV merem for ESBL UTI. SW on board to help set up home IV antibiotics. Discharge home once IV antibiotics set up.
[2018-12-05] MEDS: GABAPENTIN 400 MG CAP PO SCH ×5 (01:01→23:28)
[2018-12-05] MEDS: TRAMADOL HCL 50 MG TAB PO PRN ×4 (01:01→23:27)
[2018-12-05] MEDS: Meropenem 500 MG in NA CHLORIDE 0.9% 100 ML IV SCH ×3 (02:58→17:04)
[2018-12-05] MEDS: LIDOCAINE HCL TOP SCH ×4 (09:00→21:00)
[2018-12-05] MEDS: ALLOPURINOL 300 MG TAB PO SCH (09:48)
[2018-12-05] MEDS: LEVOTHYROXINE SOD 0.05 MG TABLET PO SCH (09:48)
[2018-12-05] MEDS: PANTOPRAZOLE INJ 80 MG in NA CHLORIDE 0.9% 250 ML IV SCH ×2 (10:39→22:10)
--- NOTE | 2018-12-05 12:36 | P.PN ---
Subjective Date of Service: 12/05/18 Chief Complaint: GI bleed Subjective: No C/O voiced, Improving Patient seen and examined at bedside. Family at bedside. Chart reviewed and case discussed with nursing staff. Patient reports improvement, states she is feeling great this morning. Sitting up in chair, working well with physical therapy Noted non bloody bowel movement today. No diarrhea today Denies any other complaints at this time. No acute events noted overnight Review of Systems 10-point ROS is otherwise unremarkable Physical Examination - Vital Signs Temperature: 971 F Blood Pressure: 123/64 Pulse: 78 Respirations: 16 Pulse Ox (%): 96 - Physical Exam General: Alert, In no apparent distress HEENT: Atraumatic, PERRLA, EOMI Neck: Supple, JVD not distended Respiratory: Clear to auscultation bilaterally, Normal air movement Cardiovascular: Regular rate/rhythm, Normal S1 S2 Gastrointestinal: Normal bowel sounds, No tenderness Musculoskeletal: No tenderness Integumentary: No rashes Neurological: Normal speech, Normal tone, Normal affect Lymphatics: No axilla or inguinal lymphadenopathy Assessment And Plan - Current Problems (Diagnosis) (1) Acute GI bleeding Current Visit: Yes Status: Acute Plan: Patient with melanotic stools, likely secondary to Elliquis on 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 Dr. Vizcarra, gastroenterology, consulted. Recommendations appreciated. Patient is status post EGD on 11/30/2018. The EGD without any acute active bleeding. We will continue Protonix. We will continue to monitor H&H. Patient continues with non-bloody bowel movement this morning (2) Acute blood loss anemia Current Visit: Yes Status: Acute Plan: Likely secondary to acute GI bleed. She is status post 4 units of PRBCs (this stay) and 1 unit FFP. H&H continues to be stable posttransfusion. Continue to monitor hemoglobin and hematocrit (3) Congestive heart failure Onset Date: 09/04/18 Current Visit: No Status: Chronic Plan: Systolic dysfunction. Last known ejection fraction from 04/2018 was 50-55%. Elevated BNP at this time along with chest x-ray with congestive heart failure changes. Continue to monitor strict I and O's. Continue IV Lasix Daily weights (4) Myelogenous leukemia, chronic Onset Date: 11/01/15 Current Visit: No Status: Chronic Plan: Stage 3. The patient not wanting hospice at this time. Case was discussed with Dr. Jolley who sees the patient as an outpatient. She agreed with blood transfusion and FFP. The patient has been on treatment for chronic myeloid leukemia and her platelets are not dropping below this level. Previously has had platelets as high as 3 million. She will be available for further questions. (5) Presence of combination internal cardiac defibrillator (ICD) and pacemaker Current Visit: Yes Status: Acute Plan: Stable, continue home medications (6) Peripheral neuropathy Current Visit: No Status: Chronic Plan: Stable, continue home medications (gabapentin 800 QID) Qualifiers: Peripheral neuropathy type: mononeuropathy, unspecified Qualified Code(s): G58.9 - Mononeuropathy, unspecified (7) Hypertension Current Visit: No Status: Chronic Plan: Continue home medications. Continue to monitor and adjust as needed Qualifiers: Hypertension type: essential hypertension Qualified Code(s): I10 - Essential (primary) hypertension (8) Hypothyroidism Onset Date: 09/04/18 Current Visit: No Status: Chronic Plan: Stable. Continue home medications Qualifiers: Hypothyroidism type: unspecified Qualified Code(s): E03.9 - Hypothyroidism , unspecified (9) GERD (gastroesophageal reflux disease) Onset Date: 09/04/18 Current Visit: No Status: Chronic Plan: We will continue PPI at this time Qualifiers: Esophagitis presence: without esophagitis Qualified Code(s): K21.9 - Gastro -esophageal reflux disease without esophagitis (10) CKD (chronic kidney disease) stage 4, GFR 15-29 ml/min Onset Date: 11/01/15 Current Visit: No Status: Chronic Plan: Stable at this time. Will continue to monitor (11) Hyperkalemia Current Visit: Yes Status: Resolved - Plan DVT prophylaxis: On hold, due to GI bleed GI prophylaxis: PPI Diet: Full liquid Disposition: Overall, very poor prognosis. Patient is a DNR. Continues to be stable on the floor. PICC line placement ordered for IV merem for ESBL UTI. SW on board to help set up home IV antibiotics. Discharge home once IV antibiotics set up.
[2018-12-05] MEDS: FUROSEMIDE 20 MG TABLET PO SCH (18:39)
[2018-12-05] MEDS ORDERED: FUROSEMIDE 20 MG TABLET PO SCH (21:00)
[2018-12-06] MEDS: Meropenem 500 MG in NA CHLORIDE 0.9% 100 ML IV SCH ×3 (00:05→16:29)
[2018-12-06 05:08] LABS: Hematocrit 28.4 % (36.0-45.0); MPV 7.7 fL (7.6-11.3); RBC Red Blood Cell Count 2.94 M/uL (3.86-4.86)
[2018-12-06 05:27] LABS: BUN Blood Urea Nitrogen 18 mg/dL (7-18); Bicarbonate 25 mmol/L (21-32); Glucose Level 78 mg/dL (74-106); Potassium 3.9 mmol/L (3.5-5.1); Sodium Level 143 mmol/L (136-145)
[2018-12-06] MEDS: LEVOTHYROXINE SOD 0.05 MG TABLET PO SCH (05:41)
[2018-12-06 06:52] LABS: Anisocytosis 1+; Basophilic Stippling 2+; Blood Morphology Comment NOTED (NOT SEEN); Macrocytosis 1+; Platelet Estimate INCR; Platelets, Giant MANY
[2018-12-06] MEDS: ALLOPURINOL 300 MG TAB PO SCH (08:32)
[2018-12-06] MEDS: DIGOXIN 0.125 MG TABLET PO SCH (08:32)
[2018-12-06] MEDS: GABAPENTIN 400 MG CAP PO SCH ×4 (08:33→22:14)
[2018-12-06] MEDS: FUROSEMIDE 20 MG TABLET PO SCH ×2 (08:33→16:29)
[2018-12-06] MEDS: PANTOPRAZOLE INJ 80 MG in NA CHLORIDE 0.9% 250 ML IV SCH ×2 (08:35→17:40)
[2018-12-06] MEDS: LIDOCAINE HCL TOP SCH ×4 (09:00→20:44)
--- NOTE | 2018-12-06 11:00 | P.PN ---
Subjective Date of Service: 12/06/18 Chief Complaint: GI bleed Subjective: No C/O voiced Patient seen and examined at bedside. Family at bedside. Chart reviewed and case discussed with nursing staff. Patient reports improvement, states she is feeling great this morning. Sitting up in chair, working well with physical therapy Noted non bloody bowel movement today. No diarrhea today Denies any other complaints at this time. No acute events noted overnight Review of Systems 10-point ROS is otherwise unremarkable Physical Examination - Vital Signs Temperature: 97.7 F Blood Pressure: 115/60 Pulse: 60 Respirations: 16 Pulse Ox (%): 94 - Physical Exam General: Alert, In no apparent distress, Oriented x3, Other (Elderly, frail) Respiratory: Clear to auscultation bilaterally, Normal air movement Cardiovascular: Regular rate/rhythm, Normal S1 S2 Gastrointestinal: Normal bowel sounds, No tenderness Assessment And Plan - Current Problems (Diagnosis) (1) Acute GI bleeding Current Visit: Yes Status: Acute Plan: Patient with melanotic stools, likely secondary to Elliquis on 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 Dr. Vizcarra, gastroenterology, consulted. Recommendations appreciated. Patient is status post EGD on 11/30/2018. The EGD without any acute active bleeding. We will continue Protonix. We will continue to monitor H&H. Patient continues with non-bloody bowel movement this morning (2) Acute blood loss anemia Current Visit: Yes Status: Acute Plan: Likely secondary to acute GI bleed. She is status post 4 units of PRBCs (this stay) and 1 unit FFP. H&H continues to be stable posttransfusion. Continue to monitor hemoglobin and hematocrit (3) Congestive heart failure Onset Date: 09/04/18 Current Visit: No Status: Chronic Plan: Systolic dysfunction. Last known ejection fraction from 04/2018 was 50-55%. Elevated BNP at this time along with chest x-ray with congestive heart failure changes. Continue to monitor strict I and O's. Continue IV Lasix Daily weights (4) Myelogenous leukemia, chronic Onset Date: 11/01/15 Current Visit: No Status: Chronic Plan: Stage 3. The patient not wanting hospice at this time. Case was discussed with Dr. Jolley who sees the patient as an outpatient. She agreed with blood transfusion and FFP. The patient has been on treatment for chronic myeloid leukemia and her platelets are not dropping below this level. Previously has had platelets as high as 3 million. She will be available for further questions. (5) Presence of combination internal cardiac defibrillator (ICD) and pacemaker Current Visit: Yes Status: Acute Plan: Stable, continue home medications (6) Peripheral neuropathy Current Visit: No Status: Chronic Plan: Stable, continue home medications (gabapentin 800 QID) Qualifiers: Peripheral neuropathy type: mononeuropathy, unspecified Qualified Code(s): G58.9 - Mononeuropathy, unspecified (7) Hypertension Current Visit: No Status: Chronic Plan: Continue home medications. Continue to monitor and adjust as needed Qualifiers: Hypertension type: essential hypertension Qualified Code(s): I10 - Essential (primary) hypertension (8) Hypothyroidism Onset Date: 09/04/18 Current Visit: No Status: Chronic Plan: Stable. Continue home medications Qualifiers: Hypothyroidism type: unspecified Qualified Code(s): E03.9 - Hypothyroidism , unspecified (9) GERD (gastroesophageal reflux disease) Onset Date: 09/04/18 Current Visit: No Status: Chronic Plan: We will continue PPI at this time Qualifiers: Esophagitis presence: without esophagitis Qualified Code(s): K21.9 - Gastro -esophageal reflux disease without esophagitis (10) CKD (chronic kidney disease) stage 4, GFR 15-29 ml/min Onset Date: 11/01/15 Current Visit: No Status: Chronic Plan: Stable at this time. Will continue to monitor (11) Hyperkalemia Current Visit: Yes Status: Resolved - Plan DVT prophylaxis: On hold, due to GI bleed GI prophylaxis: PPI Diet: Full liquid Disposition: Overall, very poor prognosis. Patient is a DNR. Continues to be stable on the floor. PICC line placed for IV merem for ESBL UTI. SW on board to help set up home IV antibiotics. Discharge home once IV antibiotics set up.
[2018-12-06 20:58] VITALS: O2SAT 94
[2018-12-06] MEDS: TRAMADOL HCL 50 MG TAB PO PRN (22:14)
[2018-12-07] MEDS: Meropenem 500 MG in NA CHLORIDE 0.9% 100 ML IV SCH ×3 (00:23→15:59)
[2018-12-07] MEDS: PANTOPRAZOLE INJ 80 MG in NA CHLORIDE 0.9% 250 ML IV SCH ×2 (03:02→13:03)
[2018-12-07 04:48] LABS: Absolute Lymphocytes (CBC) 1.8 K/uL (0.7-4.9); Absolute Monocytes 1.9 K/uL (0.1-1.3); Absolute Neutrophil 2.7 K/uL (1.8-8.0); Basophils % 2.3 % (0-1.3); Eosinophils % 2.9 % (0-4.4); Hematocrit 28.6 % (36.0-45.0); Lymphocytes % 26.7 % (15.3-44.8); MPV 7.5 fL (7.6-11.3); Monocytes % 28.3 % (3.3-12.3); RBC Red Blood Cell Count 2.96 M/uL (3.86-4.86)
[2018-12-07 04:59] LABS: BUN Blood Urea Nitrogen 16 mg/dL (7-18); Bicarbonate 28 mmol/L (21-32); Glucose Level 83 mg/dL (74-106); Sodium Level 146 mmol/L (136-145)
[2018-12-07] MEDS: LEVOTHYROXINE SOD 0.05 MG TABLET PO SCH (05:36)
[2018-12-07] MEDS: FUROSEMIDE 20 MG TABLET PO SCH ×2 (08:50→15:59)
[2018-12-07] MEDS: ALLOPURINOL 300 MG TAB PO SCH (08:50)
[2018-12-07] MEDS: GABAPENTIN 400 MG CAP PO SCH ×3 (08:52→16:00)
[2018-12-07] MEDS: TRAMADOL HCL 50 MG TAB PO PRN (08:54)
[2018-12-07] MEDS: LIDOCAINE HCL TOP SCH ×3 (08:55→17:00)
--- NOTE | 2018-12-07 10:48 | RAD REPORT ---
EXAM DESCRIPTION: Chest Single View ADDENDUM #1 Retraction of the PICC by approximately 2.5 cm is recommended. Electronically signed by: Kaylen Martinez MD 12/05/2018 2:25 AM CDT End of Addendum EXAM DESCRIPTION: XR Chest, 1 View CLINICAL HISTORY: The patient is 88 years old and is Female; S/P PICC insertion TECHNIQUE: Frontal view of the chest. COMPARISON: No relevant prior studies available. FINDINGS: LUNGS: Diffuse interstitial opacities are noted throughout the lungs. PLEURAL SPACE: Bilateral pleural effusions are suspected. No pneumothorax. HEART: The heart is enlarged. MEDIASTINUM: Unremarkable. BONES/JOINTS: Unremarkable. TUBES, LINES AND DEVICES: A right upper extremity PICC is present with the tip in the right atri um. A triple lead left-sided pacemaker is present. IMPRESSION: 1. Right upper extremity PICC tip within the right atrium. Retraction should be consid ered. 2. Findings suggestive of interstitial edema with bilateral pleural effusions. Superimposed infecti on is within the differential. Electronically signed by: Kaylen Martinez MD 12/05/2018 1:45 AM CDT Due to temporary technical issues with the PACS/Fluency reporting system, reports are being signed by the in house radiologist as a courtesy to ensure prompt reporting. The interpreting radiologist is f ully responsible for the content of the report.
[2018-12-07 12:21] VITALS: TEMP 97.8
--- NOTE | 2018-12-07 16:09 | P.DS ---
Admission Date: 11/30/18 Discharge Date: 12/07/18 Disposition: [facility]/HOME HEALTH CARE Discharge Condition: FAIR Reason for Admission: GI bleed Consultations: Gastroenterology Procedures: 11/30/2018: EGD, no active bleeding noted. Evidence of gastritis. - Problems (1) Acute GI bleeding Current Visit: Yes Status: Acute (2) Acute blood loss anemia Current Visit: Yes Status: Acute (3) Congestive heart failure Onset Date: 09/04/18 Current Visit: No Status: Chronic (4) Myelogenous leukemia, chronic Onset Date: 11/01/15 Current Visit: No Status: Chronic (5) Presence of combination internal cardiac defibrillator (ICD) and pacemaker Current Visit: Yes Status: Acute (6) Peripheral neuropathy Current Visit: No Status: Chronic Qualifiers: Peripheral neuropathy type: mononeuropathy, unspecified Qualified Code(s): G58.9 - Mononeuropathy, unspecified (7) Hypertension Current Visit: No Status: Chronic Qualifiers: Hypertension type: essential hypertension Qualified Code(s): I10 - Essential (primary) hypertension (8) Hypothyroidism Onset Date: 09/04/18 Current Visit: No Status: Chronic Qualifiers: Hypothyroidism type: unspecified Qualified Code(s): E03.9 - Hypothyroidism , unspecified (9) GERD (gastroesophageal reflux disease) Onset Date: 09/04/18 Current Visit: No Status: Chronic Qualifiers: Esophagitis presence: without esophagitis Qualified Code(s): K21.9 - Gastro -esophageal reflux disease without esophagitis (10) CKD (chronic kidney disease) stage 4, GFR 15-29 ml/min Onset Date: 11/01/15 Current Visit: No Status: Chronic (11) Hyperkalemia Current Visit: Yes Status: Resolved (12) Urinary tract infection Current Visit: Yes Status: Acute Qualifiers: Urinary tract infection type: acute cystitis Hematuria presence: without hematuria Qualified Code(s): N30.00 - Acute cystitis without hematuria (13) ESBL (extended spectrum beta-lactamase) producing bacteria infection Current Visit: Yes Status: Acute Brief History of Present Illness: The patient is an 88-year-old female with past medical history of CML, on treatment as well as hydroxy urea. The patient also has developed complications from her treatment including GI bleed, most recently in the hospital in September 2018, had been scoped previously. The patient states that she woke up this morning, had a large melenic stool, has been feeling lightheaded and dizzy. The patient's symptoms were constant, moderate, progressively worsening. She came into the ER for further evaluation. Her workup revealed hemoglobin of 5.3, platelets were 2800. This is the lowest her platelets have been, have not been able to be reduced further than that due to her CML. Per Dr. Conner and Dr. Jolley, she has been progressing in her disease and has not accepted hospice at this time. Other workup showed a potassium of 5.9. Her chest x-ray showed some volume overload pattern. The patient was given Lasix and started on Protonix drip in the ER, she was also given a dose of Rocephin. The patient was then referred for admission. When I saw the patient , she was awake, alert, in some mild distress, lethargic appearing. Hospital Course: Patient was admitted for acute GI bleeding with melanotic stools. This is likely secondary to her Eliquis and some of which revealed formation. Gastroenterology was consulted. Patient underwent an EGD on 11/30/2018 which did not show any acute active bleeding. She was continued on IV Protonix. She was transfused 4 units of PRBCs throughout the stay in 1 unit of FFP. Her hemoglobin and hematocrit then remained stable. Her melanotic stools also resolved, and she was having normal bowel movements prior to discharge. She does have a history of systolic congestive heart failure with an ejection fraction of 50-55% on echo in 2018. She was started on IV diuresis with Lasix then converted to oral Lasix. Patient does have a history of stage III myelogenous leukemia that is chronic. Patient has been introduced to hospice though she is not ready to accept hospice at this time. Case was discussed with her oncologist. No acute changes at this time. Her platelets continue to remain elevated, though improving. This has been a chronic thing for her. Patient will continue to follow up with her outpatient colleges on discharge. (Dr. Jolley). Her stay was complicated by a urinary tract infection with E. sp L. A PICC line was placed. She was started on IV meropenem. Home antibiotics were set up (2 weeks IV meropenem 1 g b.i.d.). She was discharged home once her IV antibiotics were set up. Her discharge was held due to insurance not accepting to set up her home antibiotics. [facility] company was contacted and her antibiotics were set up at home. Overall, patient is a very poor prognosis. She continues to remain a DNR. Her prognosis/diagnoses/treatment plan were explained to patient, all questions are answered and patient verbalized understanding. This is also discussed with daughters at bedside with patient's permission. Prior to discharge, patient was alert oriented x3, in no acute distress and hemodynamically stable. Her H&H remained stable. She was tolerating an oral diet. She is ambulating with physical therapy very well. IV antibiotics were set up for her at home. She was discharged in a safe and stable manner. She is instructed to follow up with the primary care physician in 2-3 days. She was instructed to follow up with her oncologist in 1 week. Vital Signs/Physical Exam: Temp Pulse Resp BP Pulse Ox 97.8 F 67 18 132/62 92 12/07/18 12:00 12/07/18 15:59 12/07/18 12:00 12/07/18 15:59 12/07/18 12:00 General: Alert, In no apparent distress, Cachectic, Other (Elderly, frail) HEENT: Atraumatic, PERRLA, EOMI Neck: Supple, JVD not distended Respiratory: Clear to auscultation bilaterally, Normal air movement Cardiovascular: Regular rate/rhythm, Normal S1 S2 Gastrointestinal: Normal bowel sounds, No tenderness Musculoskeletal: No tenderness Integumentary: No rashes Neurological: Normal speech, Normal tone, Normal affect Laboratory Data at Discharge: WBC 6.6 K/uL (4.3-10.9) 12/07/18 04:38 Hgb 9.3 g/dL (12.0-15.0) L 12/07/18 04:38 Hct 28.6 % (36.0-45.0) L 12/07/18 04:38 Plt Count 1819 K/uL (152-406) H* 12/07/18 04:38 PT 12.6 SECONDS (9.5-12.5) H 12/01/18 05:11 INR 1.07 12/01/18 05:11 APTT 30.6 SECONDS (24.3-36.9) 12/01/18 05:11 Sodium 146 mmol/L (136-145) H 12/07/18 04:38 Potassium 4.0 mmol/L (3.5-5.1) 12/07/18 04:38 BUN 16 mg/dL (7-18) 12/07/18 04:38 Creatinine 0.60 mg/dL (0.55-1.3) 12/07/18 04:38 Glucose 83 mg/dL (74-106) 12/07/18 04:38 Magnesium 2.9 mg/dL (1.8-2.4) H 11/30/18 10:53 Total Bilirubin 0.6 mg/dL (0.2-1.0) 12/03/18 12:25 AST 30 U/L (15-37) 12/03/18 12:25 ALT 16 U/L (12-78) 12/03/18 12:25 Alkaline Phosphatase 87 U/L (45-117) 12/03/18 12:25 Lipase 113 U/L (73-393) 11/30/18 10:53 Home Medications: Allopurinol 1 tab PO DAILY 11/30/18 Apixaban [Eliquis] 1 tab PO BID 11/30/18 Digoxin [Lanoxin*] 1 tab PO SEECOM 11/30/18 Furosemide 1 tab PO BID 11/30/18 Gabapentin 400 mg PO QID 11/30/18 Hydroxyurea 1 cap PO TID 11/30/18 Levothyroxine Sodium 1 tab PO DAILY 11/30/18 Lidocaine HCl [Aspercreme] 1 jazzy TOP QID 11/30/18 Metoprolol Succinate 1 tab PO BID 11/30/18 Nilotinib HCl [Tasigna] 2 cap PO BID 11/30/18 Trimethoprim 1 tab PO DAILY 11/30/18 traMADol HCL [Ultram*] 1 - 2 tab PO BID 11/30/18 Patient Discharge Instructions: Please follow up with the primary care physician in 2-3 days. Please follow up with the oncologist 1 week. Please return to the emergency room for worsening symptoms Diet: Low sodium Activity: Ad pallavi Followup: Hernan Richmond MD [Primary Care Provider] - 2-3 Days Leena Jolley MD [ACTIVE - CAN ADMIT] - 1 Week Ronald Vizcarra MD [ACTIVE - CAN ADMIT] - 1-2 Weeks Time spent managing pt's care (in minutes): 55
[2018-12-07 17:21] VITALS: BP 146/66
== END 2018-12-07 18:24 | disposition home health service (06) | DRG 378 ==
LOC: ER 09:35 → ERHOLD 11:29 → 3RD-ICU 16:48 → 2ND 12-03 15:55
PROVIDERS: ADMIT Family Medicine; ATTEND Family Medicine
PROC: 0DJ08ZZ Inspection of Upper Intestinal Tract, Via Natural or Artificial Opening Endoscopic (ICD-10-PCS; principal; 2018-11-30 14:30)
PROC: 02HV33Z Insertion of Infusion Device into Superior Vena Cava, Percutaneous Approach (ICD-10-PCS; 2018-12-05)
DX: K92.1 Melena (principal); D62 Acute posthemorrhagic anemia; C92.10 Chronic myeloid leukemia, BCR/ABL-positive, not having achieved remission; I13.0 Hypertensive heart and chronic kidney disease with heart failure and stage 1 through stage 4 chronic kidney disease, or unspecified chronic kidney disease; I50.22 Chronic systolic (congestive) heart failure; N18.4 Chronic kidney disease, stage 4 (severe); N30.00 Acute cystitis without hematuria; K21.9 Gastro-esophageal reflux disease without esophagitis; I48.91 Unspecified atrial fibrillation; G62.9 Polyneuropathy, unspecified; E55.9 Vitamin D deficiency, unspecified; E03.9 Hypothyroidism, unspecified; G47.00 Insomnia, unspecified; N18.9 Chronic kidney disease, unspecified; I27.20 Pulmonary hypertension, unspecified; E87.5 Hyperkalemia; K25.9 Gastric ulcer, unspecified as acute or chronic, without hemorrhage or perforation; T45.525A Adverse effect of antithrombotic drugs, initial encounter; Z95.810 Presence of automatic (implantable) cardiac defibrillator
CPT/HCPCS: 36415; 36430; 51702; 71045; 80048; 80053; 80076; 81003; 83690; 83735; 83880; 84132; 84484; 85014; 85018; 85025; 85610; 85730; 86850; 86900; 86901; 86927; 87077; 87086; 87088; 87186; 93005; 94640; 96365; 96367; 97110; 97116; 97163; 97530; 99285; C9113; J0610; J0696; J1940; J2704; J7030; P9016; P9017

== ENCOUNTER 2018-12-18 11:00 | Emergency (ER) | payer OTHER ==
--- OUTSIDE RECORDS SUMMARY | 2018-12-18 11:05 | XMS REPORT | Clinical Summary ---
:1930 Author Organization [facility] Address [address] [place] [address] Care Team Providers Name Role Phone Hernan [...] Signs Not on file Plan of Treatment Not on file Implants Implanted Type Area Diesel Technology Instructor Device Shelf Model / Identifier Expiration Serial / Lot Date Lead Attain Performa 78cm [id number] - [id number] Cardiovascular N/A: [employer] :CARD 10/03/2018 [id number] / Implanted: Qty: 1 on 01/07/2017 by Satya Perales MD Chest RHY: DISEASE [id number] / MGT Ld Endocardial Df4 Act 55 [id number] - [id number] Defibrillators N/A: [employer]:CARD 10/10/2018 [id number] / Implanted: Qty: 1 on 01/07/2017 by Satya Perales MD Chest RHY: DISEASE [id number] / MGT Dev Amplia Quad Timing Inspector-D Surescn [id number] - [id number] Defibrillators N/A: [employer]:CARD 04/24/2018 [id number] / Implanted: Qty: 1 on 01/07/2017 by Satya Perales MD Chest RHY:PACING SYS [id number] / Grft Hemshld Dbl Silvio 0.3x3.0in [id number] - [id number] Graft/Patch Right: GETINGE 04/26/2021 [id number] / Implanted: Qty: 1 on 10/01/2016 by Miguelangel Stack MD Neck IND:MAQUET:CV [id number] / [id number] Lead Pacemkr Capsur Novus 45x1 [id number] - [id number] Pacemaker Lead N/A: [employer]:CARD 09/23/2018 [id number] / Implanted: Qty: 1 on 01/07/2017 by Satya Perales MD Chest RHY: DISEASE [id number] / MGT Results Not on fileafter 12/17/2017 Insurance Payer Benefit Plan / Group Subscriber ID Type Phone Address CARE IMPROVEMENT MEDICARE MGD CARE IMPROVEMENT PLUS xxxxxxxxx CARE Advance Directives For more information, please contact:[address] [phone] Code Status Date Activated Date Inactivated Comments Full Code 01/07/2017 1:15 PM 01/08/2017 4:34 PM This code status was determined by: Patient Full Code 10/01/2016 11:49 AM 10/03/2016 8:34 PM This code status was determined by: Patient Full Code 09/30/2016 6:24 PM 10/01/2016 11:49 AM This code status was determined by: Patient
--- OUTSIDE RECORDS SUMMARY | 2018-12-18 11:06 | XMS REPORT ---
:1930 Author Organization [facility] Address [address] [place]. [address] [place] [id number] Care Team Providers Name Role Phone CHUCK [...] Value Reference Range Comments MAGNESIUM (BEAKER) (test atdq=476) 2.0 mg/dL 1.6-2.6 Specimen slightly hemolyzed BASIC METABOLIC [id number] 05:25:00 Test Item Value Reference Range Comments SODIUM (BEAKER) (test 138 meq/L 136-145 twba=935) POTASSIUM (BEAKER) (test 4.6 meq/L 3.5-5.1 Specimen slightly gqri=752) hemolyzed CHLORIDE (BEAKER) (test 108 meq/L 98-107 dzki=501) CO2 (BEAKER) (test 23 meq/L 22-29 iyfd=174) BLOOD UREA NITROGEN 14 mg/dL 7-21 (BEAKER) (test aeoc=137) CREATININE (BEAKER) (test 0.87 mg/dL 0.57-1.25 Specimen slightly bjng=157) hemolyzed GLUCOSE RANDOM (BEAKER) 109 mg/dL 70-105 (test doxa=142) CALCIUM (BEAKER) (test 8.9 mg/dL 8.4-10.2 foun=383) EGFR (BEAKER) (test 62 mL/min/1.73 sq m ESTIMATED GFR IS NOT xerw=6605) ACCURATE CREATININE CLEARANCE IN PREDICTING GLOMERULAR FILTRATION RATE. ESTIMATED GFR IS NOT APPLICABLE FOR DIALYSIS PATIENTS. CBC (HEMOGRAM ONLY)2017-01-08 05:22:00 Test Item Value Reference Range Comments WHITE BLOOD CELL COUNT (BEAKER) (test rthk=628) 11.1 K/ L 4.0-10.0 RED BLOOD CELL COUNT (BEAKER) (test jmgh=115) 3.62 M/ L 4.00-5.00 HEMOGLOBIN (BEAKER) (test wuov=743) 12.2 GM/DL 12.0-15.0 HEMATOCRIT (BEAKER) (test epjh=632) 36.3 % 36.0-45.0 MEAN CORPUSCULAR VOLUME (BEAKER) (test uobx=758) 101.0 fL 82.0-99.0 MEAN CORPUSCULAR HEMOGLOBIN (BEAKER) (test 33.9 pg 27.0-33.0 fwar=684) MEAN CORPUSCULAR HEMOGLOBIN CONC (BEAKER) (test 33.7 GM/DL 32.0-36.0 ckpj=196) RED CELL DISTRIBUTION WIDTH (BEAKER) (test 15.2 % 10.3-14.2 irwl=690) PLATELET COUNT (BEAKER) (test mihv=364) 201 K/CU MM 150-430 MEAN PLATELET VOLUME (BEAKER) (test ebos=011) 7.6 fL 6.5-10.5 NUCLEATED RED BLOOD CELLS (BEAKER) (test 0 /100 WBC 0-0 ppol=194) 0.00CBC (HEMOGRAM ONLY)2017-01-07 05:01:00 Test Item Value Reference Range Comments WHITE BLOOD CELL COUNT (BEAKER) (test nmnr=574) 5.8 K/ L 4.0-10.0 RED BLOOD CELL COUNT (BEAKER) (test geee=022) 3.68 M/ L 4.00-5.00 HEMOGLOBIN (BEAKER) (test fpuj=535) 12.1 GM/DL 12.0-15.0 HEMATOCRIT (BEAKER) (test lbeu=998) 36.9 % 36.0-45.0 MEAN CORPUSCULAR VOLUME (BEAKER) (test azgf=230) 100.0 fL 82.0-99.0 MEAN CORPUSCULAR HEMOGLOBIN (BEAKER) (test 33.0 pg 27.0-33.0 kfbn=770) MEAN CORPUSCULAR HEMOGLOBIN CONC (BEAKER) (test 32.8 GM/DL 32.0-36.0 ffaj=860) RED CELL DISTRIBUTION WIDTH (BEAKER) (test 13.5 % 10.3-14.2 nshk=489) PLATELET COUNT (BEAKER) (test uixp=273) 204 K/CU MM 150-430 MEAN PLATELET VOLUME (BEAKER) (test eyoo=088) 7.3 fL 6.5-10.5 NUCLEATED RED BLOOD CELLS (BEAKER) (test 0 /100 WBC 0-0 wowd=682) [id number] 02:15:00 Test Item Value Reference Range Comments MAGNESIUM (BEAKER) (test zrib=544) 2.2 mg/dL 1.6-2.6 BASIC METABOLIC [id number] 02:15:00 Test Item Value Reference Range Comments SODIUM (BEAKER) (test 142 meq/L 136-145 eyid=859) POTASSIUM (BEAKER) (test 4.0 meq/L 3.5-5.1 frtu=074) CHLORIDE (BEAKER) (test 110 meq/L 98-107 wuax=525) CO2 (BEAKER) (test 23 meq/L 22-29 yijo=330) BLOOD UREA NITROGEN 21 mg/dL 7-21 (BEAKER) (test mfpz=763) CREATININE (BEAKER) (test 1.02 mg/dL 0.57-1.25 kccv=664) GLUCOSE RANDOM (BEAKER) 102 mg/dL 70-105 (test bwhx=467) CALCIUM (BEAKER) (test 8.9 mg/dL 8.4-10.2 krve=052) EGFR (BEAKER) (test 51 mL/min/1.73 sq m ESTIMATED GFR IS NOT eoiw=8504) ACCURATE CREATININE CLEARANCE IN PREDICTING GLOMERULAR FILTRATION RATE. ESTIMATED GFR IS NOT APPLICABLE FOR DIALYSIS PATIENTS. [id number] 02:02:00 Test Item Value Reference Range Comments PARTIAL THROMBOPLASTIN TIME (BEAKER) (test 67.1 seconds 22.5-36.0 yecc=246) CBC W/PLT COUNT & AUTO [id number] 01:59:00 Test Item Value Reference Range Comments WHITE BLOOD CELL COUNT (BEAKER) (test zyxm=950) 5.2 K/ L 4.0-10.0 RED BLOOD CELL COUNT (BEAKER) (test jmsz=285) 3.33 M/ L 4.00-5.00 HEMOGLOBIN (BEAKER) (test zbar=358) 11.4 GM/DL 12.0-15.0 HEMATOCRIT (BEAKER) (test iibl=255) 33.5 % 36.0-45.0 MEAN CORPUSCULAR VOLUME (BEAKER) (test zldc=125) 101.0 fL 82.0-99.0 MEAN CORPUSCULAR HEMOGLOBIN (BEAKER) (test 34.4 pg 27.0-33.0 ozxy=236) MEAN CORPUSCULAR HEMOGLOBIN CONC (BEAKER) (test 34.1 GM/DL 32.0-36.0 rbdn=464) RED CELL DISTRIBUTION WIDTH (BEAKER) (test 13.5 % 10.3-14.2 jiti=870) PLATELET COUNT (BEAKER) (test aurq=451) 184 K/CU MM 150-430 MEAN PLATELET VOLUME (BEAKER) (test thrd=564) 7.0 fL 6.5-10.5 NUCLEATED RED BLOOD CELLS (BEAKER) (test 0 /100 WBC 0-0 fjtx=996) NEUTROPHILS RELATIVE PERCENT (BEAKER) (test 49 % ylrx=521) LYMPHOCYTES RELATIVE PERCENT (BEAKER) (test 34 % rcvu=675) MONOCYTES RELATIVE PERCENT (BEAKER) (test 10 % obsp=317) EOSINOPHILS RELATIVE PERCENT (BEAKER) (test 7 % dfpz=412) BASOPHILS RELATIVE PERCENT (BEAKER) (test 0 % ejjy=537) NEUTROPHILS ABSOLUTE COUNT (BEAKER) (test 2.52 K/ L 1.80-8.00 pgkb=911) LYMPHOCYTES ABSOLUTE COUNT (BEAKER) (test 1.75 K/ L 1.48-4.50 cuxq=018) MONOCYTES ABSOLUTE COUNT (BEAKER) (test 0.54 K/ L 0.00-1.30 xvwh=451) EOSINOPHILS ABSOLUTE COUNT (BEAKER) (test 0.34 K/ L 0.00-0.50 ernr=153) BASOPHILS ABSOLUTE COUNT (BEAKER) (test 0.02 K/ L 0.00-0.20 cths=385) 0.00DIGOXIN [id number] 18:00:00 Test Item Value Reference Range Comments DIGOXIN LEVEL (BEAKER) (test vmcm=637) 0.4 ng/mL 0.8-2.0 TSH/FREE T4 IF [id number] 18:00:00 Test Item Value Reference Range Comments THYROID STIMULATING HORMONE (BEAKER) (test 1.47 uIU/mL 0.35-4.94 kdtp=909) [id number] 17:35:00 Test Item Value Reference Range Comments MAGNESIUM (BEAKER) (test njar=928) 2.4 mg/dL 1.6-2.6 Fasting lipid panelBASIC METABOLIC [id number] 17:35:00 Test Item Value Reference Range Comments SODIUM (BEAKER) (test 139 meq/L 136-145 utrz=501) POTASSIUM (BEAKER) (test 3.9 meq/L 3.5-5.1 pkrl=646) CHLORIDE (BEAKER) (test 105 meq/L 98-107 uqoa=390) CO2 (BEAKER) (test 27 meq/L 22-29 euoh=235) BLOOD UREA NITROGEN 25 mg/dL 7-21 (BEAKER) (test zqgu=565) CREATININE (BEAKER) (test 1.24 mg/dL 0.57-1.25 ofkd=419) GLUCOSE RANDOM (BEAKER) 91 mg/dL 70-105 (test eeet=134) CALCIUM (BEAKER) (test 9.4 mg/dL 8.4-10.2 keih=562) EGFR (BEAKER) (test 41 mL/min/1.73 sq m ESTIMATED GFR IS NOT pule=1558) ACCURATE CREATININE CLEARANCE IN PREDICTING GLOMERULAR FILTRATION RATE. ESTIMATED GFR IS NOT APPLICABLE FOR DIALYSIS PATIENTS. Fasting lipid panelLIPID [id number] 17:35:00 Test Item Value Reference Range Comments TRIGLYCERIDES (BEAKER) (test cdem=537) 81 mg/dL CHOLESTEROL (BEAKER) (test uorv=118) 224 mg/dL HDL CHOLESTEROL (BEAKER) (test pcwi=421) 96 mg/dL LDL CHOLESTEROL CALCULATED (BEAKER) (test 112 mg/dL zewf=537) Triglyceride Reference Range: Low Risk <150 Borderline 150- 199 High Risk 200-499 Very High Risk >=500Cholesterol Reference Range: Low Risk <200 Borderline 200-239 High Risk > 240HDL Cholesterol Reference Range: Low Risk >=60 High Risk <40LDL Cholesterol Reference Range: Optimal <100 Near Optimal 100-129 Borderline 130-159 High 160-189 Very High >=190 Fasting lipid panelHEPATIC FUNCTION [id number] 17:35:00 Test Item Value Reference Range Comments TOTAL PROTEIN (BEAKER) (test pleu=634) 7.7 gm/dL 6.0-8.3 ALBUMIN (BEAKER) (test xuxu=5640) 3.9 g/dL 3.5-5.0 BILIRUBIN TOTAL (BEAKER) (test ooey=416) 1.1 mg/dL 0.2-1.2 BILIRUBIN DIRECT (BEAKER) (test aocj=128) 0.5 mg/dL 0.1-0.5 ALKALINE PHOSPHATASE (BEAKER) (test zjar=654) 120 U/L 40-150 AST (SGOT) (BEAKER) (test xbme=844) 19 U/L 5-34 ALT (SGPT) (BEAKER) (test gjnq=393) 19 U/L 6-55 Fasting lipid [id number] 17:24:00 Test Item Value Reference Range Comments PARTIAL THROMBOPLASTIN TIME (BEAKER) (test 37.0 seconds 22.5-36.0 robo=409) Prior to initiating heparinPROTHROMBIN [id number] 17:23:00 Test Item Value Reference Range Comments PROTIME (BEAKER) (test bhyi=511) 14.3 seconds 11.7-14.7 INR (BEAKER) (test gcgp=158) 1.1 <=5.9 RECOMMENDED COUMADIN/WARFARIN INR THERAPY RANGESSTANDARD DOSE: 2.0 - 3.0 Includes: PROPHYLAXIS forvenous thrombosis, systemic embolization; TREATMENT for venous thrombosis and/or pulmonary embolus.HIGH RISK: Target INR is 2.5-3.5 for patients with mechanical heart valves.Prior to initiating [id number] 17:23:00 Test Item Value Reference Range Comments PARTIAL THROMBOPLASTIN TIME (BEAKER) (test 36.6 seconds 22.5-36.0 uywy=989) Prior to initiating heparinCBC W/PLT COUNT & AUTO [id number] 17: 20:00 Test Item Value Reference Range Comments WHITE BLOOD CELL COUNT (BEAKER) (test thxl=897) 6.1 K/ L 4.0-10.0 RED BLOOD CELL COUNT (BEAKER) (test kvld=427) 3.72 M/ L 4.00-5.00 HEMOGLOBIN (BEAKER) (test dqag=866) 12.4 GM/DL 12.0-15.0 HEMATOCRIT (BEAKER) (test xket=324) 37.4 % 36.0-45.0 MEAN CORPUSCULAR VOLUME (BEAKER) (test lpdt=036) 101.0 fL 82.0-99.0 MEAN CORPUSCULAR HEMOGLOBIN (BEAKER) (test 33.5 pg 27.0-33.0 hojh=100) MEAN CORPUSCULAR HEMOGLOBIN CONC (BEAKER) (test 33.2 GM/DL 32.0-36.0 pmio=819) RED CELL DISTRIBUTION WIDTH (BEAKER) (test 13.5 % 10.3-14.2 axcv=808) PLATELET COUNT (BEAKER) (test dfvn=568) 219 K/CU MM 150-430 MEAN PLATELET VOLUME (BEAKER) (test pfic=747) 7.0 fL 6.5-10.5 NUCLEATED RED BLOOD CELLS (BEAKER) (test 0 /100 WBC 0-0 xmqu=996) NEUTROPHILS RELATIVE PERCENT (BEAKER) (test 51 % gvxj=131) LYMPHOCYTES RELATIVE PERCENT (BEAKER) (test 33 % jtdd=634) MONOCYTES RELATIVE PERCENT (BEAKER) (test 10 % ufiv=509) EOSINOPHILS RELATIVE PERCENT (BEAKER) (test 5 % pzwv=032) BASOPHILS RELATIVE PERCENT (BEAKER) (test 1 % ibrl=948) NEUTROPHILS ABSOLUTE COUNT (BEAKER) (test 3.09 K/ L 1.80-8.00 bbni=440) LYMPHOCYTES ABSOLUTE COUNT (BEAKER) (test 1.99 K/ L 1.48-4.50 ogdz=039) MONOCYTES ABSOLUTE COUNT (BEAKER) (test 0.62 K/ L 0.00-1.30 xkyf=960) EOSINOPHILS ABSOLUTE COUNT (BEAKER) (test 0.31 K/ L 0.00-0.50 taen=189) BASOPHILS ABSOLUTE COUNT (BEAKER) (test 0.08 K/ L 0.00-0.20 pwtn=049) PLATELET [id number] 17:16:00 Test Item Value Reference Range Comments PLATELET COUNT (BEAKER) (test lipv=285) 219 K/CU MM 150-430 BASIC METABOLIC [id number] 04:55:00 Test Item Value Reference Range Comments SODIUM (BEAKER) (test 141 meq/L 136-145 qyjq=377) POTASSIUM (BEAKER) (test 3.3 meq/L 3.5-5.1 xcsl=600) CHLORIDE (BEAKER) (test 104 meq/L 98-107 vrac=462) CO2 (BEAKER) (test 28 meq/L 22-29 sggp=559) BLOOD UREA NITROGEN 14 mg/dL 7-21 (BEAKER) (test fnpv=726) CREATININE (BEAKER) (test 0.80 mg/dL 0.57-1.25 axzo=054) GLUCOSE RANDOM (BEAKER) 97 mg/dL 70-105 (test ajsd=770) CALCIUM (BEAKER) (test 8.9 mg/dL 8.4-10.2 qkxf=892) EGFR (BEAKER) (test 68 mL/min/1.73 sq m ESTIMATED GFR IS NOT jukv=0622) ACCURATE CREATININE CLEARANCE IN PREDICTING GLOMERULAR FILTRATION RATE. ESTIMATED GFR IS NOT APPLICABLE FOR DIALYSIS PATIENTS. CBC (HEMOGRAM ONLY)2016-10-03 04:47:00 Test Item Value Reference Range Comments WHITE BLOOD CELL COUNT (BEAKER) (test fqav=892) 7.8 K/ L 4.0-10.0 RED BLOOD CELL COUNT (BEAKER) (test azyl=883) 3.12 M/ L 4.00-5.00 HEMOGLOBIN (BEAKER) (test heji=428) 11.2 GM/DL 12.0-15.0 HEMATOCRIT (BEAKER) (test yzeb=772) 32.5 % 36.0-45.0 MEAN CORPUSCULAR VOLUME (BEAKER) (test qzac=835) 104.0 fL 82.0-99.0 MEAN CORPUSCULAR HEMOGLOBIN (BEAKER) (test 35.8 pg 27.0-33.0 mpcn=749) MEAN CORPUSCULAR HEMOGLOBIN CONC (BEAKER) (test 34.4 GM/DL 32.0-36.0 ctxt=037) RED CELL DISTRIBUTION WIDTH (BEAKER) (test 12.8 % 10.3-14.2 rmif=624) PLATELET COUNT (BEAKER) (test txet=264) 190 K/CU MM 150-430 MEAN PLATELET VOLUME (BEAKER) (test gtnu=550) 7.4 fL 6.5-10.5 NUCLEATED RED BLOOD CELLS (BEAKER) (test 0 /100 WBC 0-0 omhe=903) [id number] 04:41:00 Test Item Value Reference Range Comments PROTIME (BEAKER) (test gifv=021) 13.1 seconds 11.7-14.7 INR (BEAKER) (test nayl=457) 1.0 <=5.9 PARTIAL THROMBOPLASTIN TIME (BEAKER) (test 28.1 seconds 22.5-36.0 pvwi=018) RECOMMENDED COUMADIN/WARFARIN INR THERAPY RANGESSTANDARD DOSE: 2.0 - 3.0 Includes: PROPHYLAXIS forvenous thrombosis, systemic embolization; TREATMENT for venous thrombosis and/or pulmonary embolus.HIGH RISK: Target INR is 2.5-3.5 for patients with mechanical heart valves.CREATINE KINASE (CK), TOTAL AND [id number] 04:53:00 Test Item Value Reference Range Comments CREATINE KINASE TOTAL (BEAKER) (test gddf=129) 36 U/L 29-200 CREATINE KINASE-MB (BEAKER) (test luwy=870) 1.6 ng/mL 0.0-6.6 CREATINE KINASE-MB INDEX (BEAKER) (test uyfa=950) 4.4 % Effective 06/14/2014: CK-MB Reference Range ChangeNew: 0.0-6.6 Previous: 0.0- 4.9CK-MB Reference Range:<6.7 Normal6.7-10.0 Borderline>10.0 AbnormalTROPONIN [id number] 04:53:00 Test Item Value Reference Range Comments TROPONIN I (BEAKER) (test lfxn=896) 0.03 ng/mL 0.00-0.03 Effective 06/14/2014: Reference Range [...] acute neurological disease, and persistent tachyarrhythmia.BASIC METABOLIC [id number] 04:46:00 Test Item Value Reference Range Comments SODIUM (BEAKER) (test 139 meq/L 136-145 qzvz=709) POTASSIUM (BEAKER) (test 3.7 meq/L 3.5-5.1 tquy=639) CHLORIDE (BEAKER) (test 104 meq/L 98-107 wjyy=499) CO2 (BEAKER) (test 27 meq/L 22-29 kmvb=132) BLOOD UREA NITROGEN 14 mg/dL 7-21 (BEAKER) (test pfvo=497) CREATININE (BEAKER) (test 0.82 mg/dL 0.57-1.25 gyvi=212) GLUCOSE RANDOM (BEAKER) 102 mg/dL 70-105 (test djou=245) CALCIUM (BEAKER) (test 9.1 mg/dL 8.4-10.2 oald=796) EGFR (BEAKER) (test 66 mL/min/1.73 sq m ESTIMATED GFR IS NOT gynn=8943) ACCURATE CREATININE CLEARANCE IN PREDICTING GLOMERULAR FILTRATION RATE. ESTIMATED GFR IS NOT APPLICABLE FOR DIALYSIS PATIENTS. [id number] 04:41:00 Test Item Value Reference Range Comments PROTIME (BEAKER) (test phww=665) 13.5 seconds 11.7-14.7 INR (BEAKER) (test pcnu=434) 1.0 <=5.9 PARTIAL THROMBOPLASTIN TIME (BEAKER) (test 33.1 seconds 22.5-36.0 lgcp=485) RECOMMENDED COUMADIN/WARFARIN INR THERAPY RANGESSTANDARD DOSE: 2.0 - 3.0 Includes: PROPHYLAXIS forvenous thrombosis, systemic embolization; TREATMENT for venous thrombosis and/or pulmonary embolus.HIGH RISK: Target INR is 2.5-3.5 for patients with mechanical heart valves.CBC (HEMOGRAM ONLY)2016-10-02 04:33:00 Test Item Value Reference Range Comments WHITE BLOOD CELL COUNT (BEAKER) (test dpaj=207) 9.4 K/ L 4.0-10.0 RED BLOOD CELL COUNT (BEAKER) (test bmos=188) 3.07 M/ L 4.00-5.00 HEMOGLOBIN (BEAKER) (test uyjq=678) 11.0 GM/DL 12.0-15.0 HEMATOCRIT (BEAKER) (test wkiv=554) 31.9 % 36.0-45.0 MEAN CORPUSCULAR VOLUME (BEAKER) (test xipz=866) 104.0 fL 82.0-99.0 MEAN CORPUSCULAR HEMOGLOBIN (BEAKER) (test 36.0 pg 27.0-33.0 hloo=999) MEAN CORPUSCULAR HEMOGLOBIN CONC (BEAKER) (test 34.6 GM/DL 32.0-36.0 lcqk=344) RED CELL DISTRIBUTION WIDTH (BEAKER) (test 12.7 % 10.3-14.2 bqsj=632) PLATELET COUNT (BEAKER) (test iejg=768) 205 K/CU MM 150-430 MEAN PLATELET VOLUME (BEAKER) (test qrzn=566) 7.3 fL 6.5-10.5 NUCLEATED RED BLOOD CELLS (BEAKER) (test 0 /100 WBC 0-0 kokg=683) 0.00TSH/FREE T4 IF [id number] 19:30:00 Test Item Value Reference Range Comments THYROID STIMULATING HORMONE (BEAKER) (test 0.43 uIU/mL 0.35-4.94 rpcl=811) CREATINE KINASE (CK), TOTAL AND [id number] 19:14:00 Test Item Value Reference Range Comments CREATINE KINASE TOTAL (BEAKER) (test sbbv=073) 53 U/L 29-200 CREATINE KINASE-MB (BEAKER) (test opqz=013) 2.6 ng/mL 0.0-6.6 CREATINE KINASE-MB INDEX (BEAKER) (test lrso=425) 4.9 % Effective 06/14/2014: CK-MB Reference Range ChangeNew: 0.0-6.6 Previous: 0.0- 4.9CK-MB Reference Range:<6.7 Normal6.7-10.0 Borderline>10.0 AbnormalTROPONIN [id number] 19:14:00 Test Item Value Reference Range Comments TROPONIN I (BEAKER) (test tkmt=857) 0.01 ng/mL 0.00-0.03 Effective 06/14/2014: Reference Range [...] renalfailure, acidosis, acute neurological disease, and persistent tachyarrhythmia.[id number] 15:20: 00 Test Item Value Reference Range Comments MAGNESIUM (BEAKER) (test ymrn=158) 1.9 mg/dL 1.6-2.6 BASIC METABOLIC [id number] 15:20:00 Test Item Value Reference Range Comments SODIUM (BEAKER) (test 141 meq/L 136-145 vfqq=072) POTASSIUM (BEAKER) (test 3.9 meq/L 3.5-5.1 yufi=071) CHLORIDE (BEAKER) (test 108 meq/L 98-107 cixt=052) CO2 (BEAKER) (test 25 meq/L 22-29 mcje=905) BLOOD UREA NITROGEN 14 mg/dL 7-21 (BEAKER) (test iirk=577) CREATININE (BEAKER) (test 0.84 mg/dL 0.57-1.25 eodb=002) GLUCOSE RANDOM (BEAKER) 130 mg/dL 70-105 (test vqdn=879) CALCIUM (BEAKER) (test 8.8 mg/dL 8.4-10.2 erxz=492) EGFR (BEAKER) (test 64 mL/min/1.73 sq m ESTIMATED GFR IS NOT ckis=0014) ACCURATE CREATININE CLEARANCE IN PREDICTING GLOMERULAR FILTRATION RATE. ESTIMATED GFR IS NOT APPLICABLE FOR DIALYSIS PATIENTS. CBC (HEMOGRAM ONLY)2016-10-01 14:52:00 Test Item Value Reference Range Comments WHITE BLOOD CELL COUNT (BEAKER) (test adlq=978) 10.1 K/ L 4.0-10.0 RED BLOOD CELL COUNT (BEAKER) (test xgqd=824) 3.40 M/ L 4.00-5.00 HEMOGLOBIN (BEAKER) (test grpp=270) 11.9 GM/DL 12.0-15.0 HEMATOCRIT (BEAKER) (test ekws=552) 34.6 % 36.0-45.0 MEAN CORPUSCULAR VOLUME (BEAKER) (test zmrh=217) 102.0 fL 82.0-99.0 MEAN CORPUSCULAR HEMOGLOBIN (BEAKER) (test 35.1 pg 27.0-33.0 oavz=736) MEAN CORPUSCULAR HEMOGLOBIN CONC (BEAKER) (test 34.5 GM/DL 32.0-36.0 lskc=416) RED CELL DISTRIBUTION WIDTH (BEAKER) (test 13.5 % 10.3-14.2 aeba=717) PLATELET COUNT (BEAKER) (test zaro=685) 204 K/CU MM 150-430 MEAN PLATELET VOLUME (BEAKER) (test kdko=998) 7.4 fL 6.5-10.5 NUCLEATED RED BLOOD CELLS (BEAKER) (test 0 /100 WBC 0-0 cfqr=707) 0.00BASIC METABOLIC [id number] 11:00:00 Test Item Value Reference Range Comments SODIUM (BEAKER) (test 142 meq/L 136-145 hjfk=516) POTASSIUM (BEAKER) (test 4.5 meq/L 3.5-5.1 ddzn=808) CHLORIDE (BEAKER) (test 103 meq/L 98-107 bbtj=474) CO2 (BEAKER) (test 28 meq/L 22-29 xttm=220) BLOOD UREA NITROGEN 28 mg/dL 7-21 (BEAKER) (test iryu=979) CREATININE (BEAKER) (test 1.04 mg/dL 0.57-1.25 ptni=219) GLUCOSE RANDOM (BEAKER) 98 mg/dL 70-105 (test gmag=040) CALCIUM (BEAKER) (test 9.8 mg/dL 8.4-10.2 ylbh=160) EGFR (BEAKER) (test 50 mL/min/1.73 sq m ESTIMATED GFR IS NOT kwod=2105) ACCURATE CREATININE CLEARANCE IN PREDICTING GLOMERULAR FILTRATION RATE. ESTIMATED GFR IS NOT APPLICABLE FOR DIALYSIS PATIENTS. CBC W/PLT COUNT & AUTO [id number] 10:59:00 Test Item Value Reference Range Comments WHITE BLOOD CELL COUNT (BEAKER) (test oksx=857) 7.0 K/ L 4.0-10.0 RED BLOOD CELL COUNT (BEAKER) (test bcai=081) 3.77 M/ L 4.00-5.00 HEMOGLOBIN (BEAKER) (test soto=620) 13.2 GM/DL 12.0-15.0 HEMATOCRIT (BEAKER) (test zcek=284) 38.5 % 36.0-45.0 MEAN CORPUSCULAR VOLUME (BEAKER) (test mjus=921) 102.0 fL 82.0-99.0 MEAN CORPUSCULAR HEMOGLOBIN (BEAKER) (test 34.9 pg 27.0-33.0 awes=500) MEAN CORPUSCULAR HEMOGLOBIN CONC (BEAKER) (test 34.2 GM/DL 32.0-36.0 eazd=352) RED CELL DISTRIBUTION WIDTH (BEAKER) (test 13.6 % 10.3-14.2 wsal=823) PLATELET COUNT (BEAKER) (test zarq=700) 233 K/CU MM 150-430 MEAN PLATELET VOLUME (BEAKER) (test rrsw=124) 7.3 fL 6.5-10.5 NUCLEATED RED BLOOD CELLS (BEAKER) (test 0 /100 WBC 0-0 pret=352) NEUTROPHILS RELATIVE PERCENT (BEAKER) (test 60 % srqf=183) LYMPHOCYTES RELATIVE PERCENT (BEAKER) (test 27 % gxbq=905) MONOCYTES RELATIVE PERCENT (BEAKER) (test 9 % pxip=700) EOSINOPHILS RELATIVE PERCENT (BEAKER) (test 3 % mfhh=411) BASOPHILS RELATIVE PERCENT (BEAKER) (test 1 % mgzg=992) NEUTROPHILS ABSOLUTE COUNT (BEAKER) (test 4.20 K/ L 1.80-8.00 uouk=391) LYMPHOCYTES ABSOLUTE COUNT (BEAKER) (test 1.92 K/ L 1.48-4.50 kfsf=468) MONOCYTES ABSOLUTE COUNT (BEAKER) (test 0.60 K/ L 0.00-1.30 dryg=218) EOSINOPHILS ABSOLUTE COUNT (BEAKER) (test 0.23 K/ L 0.00-0.50 pblf=664) BASOPHILS ABSOLUTE COUNT (BEAKER) (test 0.07 K/ L 0.00-0.20 alfo=356) 0.00PT/[id number] 10:58:00 Test Item Value Reference Range Comments PROTIME (BEAKER) (test kinb=587) 12.7 seconds 11.7-14.7 INR (BEAKER) (test ephe=737) 1.0 <=5.9 PARTIAL THROMBOPLASTIN TIME (BEAKER) (test 29.7 seconds 22.5-36.0 kdne=531) RECOMMENDED COUMADIN/WARFARIN INR THERAPY RANGESSTANDARD DOSE: 2.0 - 3.0 Includes: PROPHYLAXIS forvenous thrombosis, systemic embolization; TREATMENT for venous thrombosis and/or pulmonary embolus.HIGH RISK: Target INR is 2.5-3.5 for patients with mechanical heart valves.
--- NOTE | 2018-12-18 11:35 | RAD REPORT ---
EXAM DESCRIPTION: RAD - Chest Single View - 12/18/2018 11:28 am CLINICAL HISTORY: shortness of breath Chest pain. COMPARISON: Chest Single View dated 12/05/2018; Chest Single View dated 12/01/2018; Chest Single View d ated 11/30/2018; Chest Single View dated 10/05/2018 FINDINGS: Portable technique limits examination quality. Moderate bilateral pulmonary opacities are seen with moderate right pleural effusion, progressive sin ce the comparative study. Pulmonary edema or pneumonia most likely possibilities. The heart is modera tely enlarged in size with a multi lead pacer/defibrillator device. Right-sided PICC line has tip in the SVC.
[2018-12-18 11:46] LABS: Absolute Monocytes 3.8 K/uL (0.1-1.3); Absolute Neutrophil 4.6 K/uL (1.8-8.0); Basophils % 5.3 % (0-1.3); Eosinophils % 3.1 % (0-4.4); Lymphocytes % 17.8 % (15.3-44.8); MPV 8.3 fL (7.6-11.3); RBC Red Blood Cell Count 2.08 M/uL (3.86-4.86)
[2018-12-18 11:54] LABS: Protime INR 1.11
[2018-12-18] MEDS ORDERED: LEVALBUTEROL 1.25 MG/3 ML NEB ONE (11:55)
[2018-12-18] MEDS ORDERED: FUROSEMIDE 20 MG/ 2ML VIAL ONE (11:55)
[2018-12-18 12:03] LABS: Albumin 2.8 g/dL (3.4-5.0); Bilirubin Direct 0.2 mg/dL (0-0.2); Bilirubin Total 0.8 mg/dL (0.2-1.0); Magnesium 2.6 mg/dL (1.8-2.4); Potassium 4.3 mmol/L (3.5-5.1); Protein, Total 5.9 g/dL (6.4-8.2); Troponin (Emerg Dept Use Only) 0.03 ng/mL (0.0-0.045)
[2018-12-18 14:23] LABS: Platelet Estimate INCR
[2018-12-18 14:24] LABS: Anisocytosis 1+; Blood Morphology Comment NOTED (NOT SEEN); Hypochromasia 1+; Macrocytosis 1+; Poikilocytosis 1+; Polychromasia 1+
[2018-12-18] MEDS ORDERED: NA CHLORIDE 0.9% 250 ML ONE (15:45)
--- NOTE | 2018-12-18 16:45 | EKG ---
Test Date: 2018-12-18 Test Time: 11:21:08 Data Services Developer: RODERICK MEASUREMENT RESULTS: Intervals: Rate: 62 TN: QRSD: 106 QT: 410 QTc: 416 [place]: P: TN: QRS: -14 T: 59 INTERPRETIVE STATEMENTS: Atrial-paced rhythm Low voltage QRS Inferior-posterior infarct, age undetermined Abnormal ECG Compared to ECG 11/30/2018 09:36:36 Low QRS voltage now present Myocardial infarct finding now present Sinus rhythm no longer present Left-axis deviation no longer present T-wave abnormality no longer present Electronically Signed On 12-18-18 16:42:44 CDT by Freddie Santiago
--- NOTE | 2018-12-18 18:41 | P.CNS ---
Date of Consult: 12/18/18 Reason for Consult: SOB Requesting Physician: Mahesh Macias Chief Complaint: SOB History of Present Illness: Ms Ocampo is an 88 years old woman with multiple medical problems, including COPD, CML under Procrit therapy, chronic diastolic CHF, HTN, pacemaker , who presented to the ER with complaints of shortness of breath. Patient has multiple admissions in the past for similar symptoms were she had been admitted to the hospital for shortness of breath most likely secondary to COPD exacerbation versus anemia. Patient was recently admitted to the hospital and had extensive GI workup for possible GI bleeding. Patient denies chest pain, cough, nausea or vomiting. No fever or chills either. Yesterday, her SOB got worse, she was not able to do minimal exercise activity because significant dyspnea and thus she decided to come to the ER this morning.. In the ER patient was seen and evaluated by the ER physician. Patient had lab work and imaging done. Lab work was consistent with hemoglobin 6.3 and this patient was referred over to admission for symptomatic anemia. Allergies codeine [Codeine] Adverse Reaction (Verified 10/05/18 03:24) vomiting Home Medications: Allopurinol 1 tab PO DAILY 11/30/18 Apixaban [Eliquis] 1 tab PO BID 11/30/18 Digoxin [Lanoxin*] 1 tab PO SEECOM 11/30/18 Furosemide 1 tab PO BID 11/30/18 Gabapentin 400 mg PO QID 11/30/18 Hydroxyurea 1 cap PO TID 11/30/18 Levothyroxine Sodium 1 tab PO DAILY 11/30/18 Lidocaine HCl [Aspercreme] 1 jazzy TOP QID 11/30/18 Metoprolol Succinate 1 tab PO BID 11/30/18 Nilotinib HCl [Tasigna] 2 cap PO BID 11/30/18 Trimethoprim 1 tab PO DAILY 11/30/18 traMADol HCL [Ultram*] 1 - 2 tab PO BID 11/30/18 - Past Medical/Surgical History Diabetic: No -: Chronic CHF, diastolic -: Gerd -: Atrial fibrillation, chronic anti coagulation therapy -: Varicose Veins -: Peripheral Neuropathy -: CML (chronic myeloid leukemia) -: Chronic renal disease -: Hypothyroidism -: Angiodysplasia of intestine with hemorrhage -: Hypertension -: Chronic renal disease -: Angiodysplasia of intestine with hemorrhage -: Hysterectomy -: Back surgery x2 -: Debbie -: bladder sx. -: carotid sx Psychosocial/ Personal History: Patient lives at home. - Family History Mother Medical History: Cancer, Liver disease Father Medical History: Cancer, Liver disease Notes: THROAT CANCER - Social History Smoking Status: Unknown if ever smoked Alcohol use: No CD- Drugs: No Caffeine use: No Review of Systems 10-point ROS is otherwise unremarkable Physical Examination General: Alert, In no apparent distress HEENT: Other (Pale appearing) Respiratory: Normal air movement, Expiratory wheezes, Inspiratory wheezes Cardiovascular: Regular rate/rhythm, Normal S1 S2 Gastrointestinal: Normal bowel sounds, No tenderness Musculoskeletal: No tenderness Integumentary: No rashes Neurological: Normal speech, Normal tone Lymphatics: No axilla or inguinal lymphadenopathy Laboratory Data (last 24 hrs) 12/18/18 11:25: PT 13.1 H, INR 1.11 12/18/18 11:25: WBC 11.4 H, Hgb 6.3 L*, Hct 20.0 L* D, Plt Count 1520 H* D 12/18/18 11:25: Sodium 140, Potassium 4.3, BUN 60 H, Creatinine 1.14, Glucose 110 H, Magnesium 2.6 H, Total Bilirubin 0.8, AST 28, ALT 14, Alkaline Phosphatase 89 - Problems (1) Chronic anemia Onset Date: 11/01/15 Current Visit: No Status: Chronic (2) CKD (chronic kidney disease) stage 4, GFR 15-29 ml/min Onset Date: 11/01/15 Current Visit: No Status: Chronic (3) Congestive heart failure Onset Date: 09/04/18 Current Visit: No Status: Chronic (4) GERD (gastroesophageal reflux disease) Onset Date: 09/04/18 Current Visit: No Status: Chronic Qualifiers: Esophagitis presence: without esophagitis (5) Hypertension Current Visit: No Status: Chronic Qualifiers: Hypertension type: essential hypertension (6) Hypothyroidism Onset Date: 09/04/18 Current Visit: No Status: Chronic Qualifiers: Hypothyroidism type: acquired Qualified Code(s): E03.9 - Hypothyroidism, unspecified (7) Myelogenous leukemia, chronic Onset Date: 11/01/15 Current Visit: No Status: Chronic Conclusions/Impression: Patient was seen and examined in the ER by me. Lab work and imaging reviewed by me as well. Patient was doing well overall. No further shortness of breath was noted. Patient was saturating well on room air. Hemodynamically stable as well. Patient received nebulizing treatment in the ER which also helped her markedly Stop Blood work revealed hemoglobin of 6.3. Patient does have history of chronic anemia secondary to her cml. At this time my recommendations given the hemodynamic stability and patient doing well overall is to transfuse patient 2 units of PRBC and then patient can be discharged home under stable condition. Patient will be followed up with primary care provider along with oncology in about 1-2 days post discharge.
[2018-12-18 22:22] LABS: Hematocrit 27.4 % (36.0-45.0)
--- NOTE | 2018-12-18 22:46 | ER ---
Nurse's Notes [facility] Name: Nikky Ocampo Age: 88 yrs Sex: Female : 1930 Arrival Date: 12/18/2018 Time: 11:03 Bed 6 Private MD: Hernan Richmond E Diagnosis: Anemia. Congestive heart failure Presentation: 12/18 11:12 Presenting complaint: Patient states: Increased SOB that began this morning, hx of CHF, ph uses home o2 at 2L, family also reports hx of low Hgb, last level 8.5 "a few days ago." States, we're afraid it may have dropped because she's been very drowsy and the insides of her eyes are pale.". Transition of care: patient was not received from another setting of care. Onset of symptoms was December 18, 2018. Risk Assessment: Do you want to hurt yourself or someone else? Patient reports no desire to harm self or others. Care prior to arrival: None. 11:12 Method Of Arrival: Wheelchair ph 11:12 Acuity: TASIA 2 ph 11:27 Initial Sepsis Screen: Does the patient meet any 2 criteria? RR > 20 per min. No. iw Patient's initial sepsis screen is negative. Does the patient have a suspected source of infection? Yes: Productive cough/pneumonia. Triage Assessment: 19:40 Respiratory: tl2 22:23 Respiratory: Reports. tl2 Historical: - Allergies: 11:17 Codeine; ph - PMHx: 11:17 CHF; Chronic leukemia; colon cancer; Hypertension; Pacemaker; ph - PSHx: 11:17 Hysterectomy; Cholecystectomy; ph - Immunization history:: Adult Immunizations up to date. - Social history:: Smoking status: Patient/guardian denies using tobacco. - Ebola Screening: : No symptoms or risks identified at this time. Screenin:03 Abuse screen: Denies threats or abuse. Denies injuries from another. Nutritional iw screening: No deficits noted. Tuberculosis screening: No symptoms or risk factors identified. Fall Risk IV access (20 points). Assessment: 11:30 General: Appears uncomfortable, slender, Behavior is cooperative. General: Reports iw fatigue for 1-2 days, Denies fever. Neuro: Level of Consciousness is awake, alert, obeys commands, Moves all extremities. Cardiovascular: Reports shortness of breath, Denies chest pain, Capillary refill is > 3 seconds in bilateral fingers Rhythm is sinus tachycardia. Respiratory: Reports shortness of breath on exertion Airway is patent Respiratory effort is even, unlabored, Respiratory pattern is tachypnea Breath sounds are clear bilaterally. GI: Abdomen is flat, non-distended. Derm: Skin is pale. Musculoskeletal: Range of motion: intact in all extremities. 12:00 Reassessment: Patient appears in no apparent distress at this time. Patient and/or iw family updated on plan of care and expected duration. Pain level reassessed. Patient is alert, oriented x 3, equal unlabored respirations, skin warm/dry/pink. pt receiving breathing treatment, family at bedside, VSS. 14:33 Reassessment: Patient appears in no apparent distress at this time. Patient and/or iw family updated on plan of care and expected duration. Pain level reassessed. Patient is alert, oriented x 3, equal unlabored respirations, skin warm/dry/pink. Patient states feeling better. Patient states symptoms have improved. 15:05 Reassessment: Patient appears in no apparent distress at this time. pt consented for iw blood transfusion, VSS, family at bedside. 16:16 Reassessment: Elsi sent from ICU to start blood transfusion, started at 1545, iw transfusion handed off to me at 1605. 16:45 Reassessment: Patient appears in no apparent distress at this time. Patient and/or iw family updated on plan of care and expected duration. Pain level reassessed. Patient is alert, oriented x 3, equal unlabored respirations, skin warm/dry/pink. pt tolerating blood transfusion well, respirations even and unlabored, VSS, infusion increased to 150 ml/hr, pt tolerating well. 18:20 Reassessment: 2nd unit PRBC started to PICC line at 1820, NAD, VSS, daughter at bedside.iw 18:43 Reassessment: Patient appears in no apparent distress at this time. Patient and/or iw family updated on plan of care and expected duration. Pain level reassessed. Patient is alert, oriented x 3, equal unlabored respirations, skin warm/dry/pink. Pain: Denies pain. 19:37 Reassessment: 2nd unit of PRBC infusing, see flowsheet for vitals. Will recheck HH 1 tl2 hour after completion of 2nd unit. Family notified. General: Appears in no apparent distress. comfortable, Behavior is calm, cooperative, appropriate for age. Pain: Denies pain. Neuro: Level of Consciousness is awake, alert, obeys commands, Oriented to person, place, time, situation. Cardiovascular: Denies chest pain, Rhythm is sinus rhythm. Respiratory: Airway is patent Respiratory effort is even, unlabored, Respiratory pattern is regular, symmetrical, Breath sounds are clear bilaterally. GI: No signs and/or symptoms were reported involving the gastrointestinal system. : No signs and/or symptoms were reported regarding the genitourinary system. Derm: Skin is pale. 21:02 Reassessment: Patient appears in no apparent distress at this time. Patient and/or tl2 family updated on plan of care and expected duration. Pain level reassessed. Patient is alert, oriented x 3, equal unlabored respirations, skin warm/dry/pink. 2nd unit completed. Will recheck HH at 2200. Pt and family aware, no questions or concerns at this time Patient states feeling better. Patient states symptoms have improved. 22:00 Reassessment: Patient appears in no apparent distress at this time. Patient and/or tl2 family updated on plan of care and expected duration. Pain level reassessed. Patient is alert, oriented x 3, equal unlabored respirations, skin warm/dry/pink. Patient states feeling better. 23:03 Reassessment: Patient appears in no apparent distress at this time. Patient and/or tl2 family updated on plan of care and expected duration. Pain level reassessed. Patient is alert, oriented x 3, equal unlabored respirations, skin warm/dry/pink. pt and family verbalized understanding of discharge instructions, need for follow up Patient states feeling better. Vital Signs: 11:16 BP 112 / 82; Pulse 68; Resp 22; Temp 98.0(TE); Pulse Ox 92% on 2 lpm NC; Weight 56.7 ph kg; Height 5 ft. 5 in. (165.10 cm); Pain 0/10; 12:02 BP 132 / 58; Pulse 60; Resp 22 S; Pulse Ox 100% on Nebulizer Mask; iw 14:02 BP 112 / 58; Pulse 74; Resp 20 S; Pulse Ox 97% ; Pain 0/10; aj 16:15 BP 119 / 53; Pulse 60; Resp 16 S; Temp 97.5(TE); Pulse Ox 95% on 2 lpm NC; Pain 0/10; iw 17:36 BP 160 / 53; Pulse 63; Resp 16 S; Pulse Ox 96% on 2 lpm NC; Pain 0/10; iw 19:20 BP 148 / 55; Pulse 72; Resp 18; Temp 98; Pulse Ox 98% on 2 lpm NC; tl2 21:02 BP 129 / 49; Pulse 60; Resp 18; Pulse Ox 98% on 2 lpm NC; tl2 22:22 BP 116 / 72; Pulse 62; Resp 18; Pulse Ox 97% on 2 lpm NC; tl2 23:03 BP 134 / 74; Pulse 60; Resp 18; Pulse Ox 97% on 2 lpm NC; tl2 11:16 Body Mass Index 20.80 (56.70 kg, 165.10 cm) ph ED Course: 11:03 Patient arrived in ED. rg4 11:03 Hernan Richmond MD is Private Physician. rg4 11:06 Betty Okeefe RN is Primary Nurse. iw 11:11 Jacob Alexander PA is PHCP. jmm 11:11 Mahesh Macias MD is Attending Physician. jmm 11:16 Triage completed. ph 11:17 Arm band placed on Patient placed in an exam room, on a stretcher, on oxygen, on ph cardiac catheterization technologist, on pulse oximetry. 11:21 EKG done, by hvac field service technician. reviewed by Jacob BURCH. sm3 11:27 Accessed PICC line. using per hospital protocol. Clean \\T\\ dry. Dressing intact. Good iw blood return. Flushes easily. 11:29 XRAY Chest (1 view) In Process Unspecified. EDMS 19:20 Patient has correct armband on for positive identification. Placed in gown. Bed in low tl2 position. Call light in reach. Side rails up X 1. Adult w/ patient. 19:36 Primary Nurse role handed off by Betty Okeefe RN iw 21:49 Attending Physician role handed off by Mahesh Macias MD jmm 21:49 Krishna Alatorre MD is Attending Physician. jmm 22:44 Hernan Richmond MD is Referral Physician. pkl 23:03 No provider procedures requiring assistance completed. double lumen PICC flushed with tl2 10 mL NS each, flushes easily. PICC line remains in place. Administered Medications: 11: Drug: Xopenex (3) 1.25 mg Route: Inhalation; iw 11:55 Drug: Lasix 20 mg Route: IVP; Site: PICC; iw 12:30 Follow up: Response: No adverse reaction iw Outcome: 22:45 Discharge ordered by . pkl 23:03 Discharged to home via wheelchair, with family. tl2 23:03 Condition: stable 23:03 Discharge instructions given to patient, family, Instructed on discharge instructions, follow up and referral plans. Demonstrated understanding of instructions, follow-up care. 23:06 Patient left the ED. tl2 Signatures: Dispatcher [employer] EDMalaika Sánchez RN Krishna Mota MD MD pkl Jacob Alexander PA PA jmm Williams, Irene, RN RN Roberta Sandoval RN RN ph Knox, Taylor, RN RN tl2 Jessy Palomo Shakira 3
--- NOTE | 2018-12-18 22:46 | EDPHYS ---
Physician Documentation [facility] Name: Nikky Ocampo Age: 88 yrs Sex: Female : 1930 Arrival Date: 12/18/2018 Time: 11:03 Bed 6 Private MD: Hernan Richmond E ED Physician Krishna Alatorre HPI: 12/18 11:19 This 88 yrs old Female presents to ER via Wheelchair with complaints of jmm Breathing Difficulty. 11:19 The patient has shortness of breath at rest. Onset: The symptoms/episode began/occurred jmm gradually, today. This is an 88 year old female with a history of CHF, htn, anemia, that presents to the ED with complaints of shortness of breath worsening today without exertion. Patient recently visited with cardiology Friday and increased lasix to 20 mg TID. Family states swelling has decreased in the patient's legs but developed a cough and congestion yesterday and advised to take otc medication. . Historical: - Allergies: 11:17 Codeine; ph - PMHx: 11:17 CHF; Chronic leukemia; colon cancer; Hypertension; Pacemaker; ph - PSHx: 11:17 Hysterectomy; Cholecystectomy; ph - Immunization history:: Adult Immunizations up to date. - Social history:: Smoking status: Patient/guardian denies using tobacco. - Ebola Screening: : No symptoms or risks identified at this time. ROS: 11:19 Constitutional: Negative for fever, chills, and weight loss. jmm 11:19 Neck: Negative for injury, pain, and swelling, Cardiovascular: Negative for chest pain, palpitations, and edema. 11:19 Abdomen/GI: Negative for abdominal pain, nausea, vomiting, diarrhea, and constipation, Back: Negative for injury and pain, Neuro: Negative for headache, weakness, numbness, tingling, and seizure. 11:19 ENT: Positive for sinus congestion. 11:19 Respiratory: Positive for cough, shortness of breath, wheezing. 11:19 MS/extremity: Positive for swelling. 11:19 All other systems are negative. Exam: 11:19 Constitutional: This is a well developed, well nourished patient who is awake, alert, jmm and in no acute distress. Head/Face: atraumatic. Eyes: EOMI, no conjunctival erythema appreciated ENT: Moist Mucus Membranes Neck: Trachea midline, Supple Chest/axilla: Normal chest wall appearance and motion. 11:19 Cardiovascular: Rate: normal, Rhythm: regular. 11:19 Respiratory: the patient does not display signs of respiratory distress, Respirations: normal, Breath sounds: wheezing: that is mild. 11:19 Back: ROM is normal. 11:19 Musculoskeletal/extremity: ROM: intact in all extremities. 11:19 Skin: Appearance: Color: normal in color. 11:19 Neuro: Orientation: is normal, Mentation: is normal, Memory: is normal. 11:19 Psych: Behavior/mood is pleasant, cooperative. Vital Signs: 11:16 BP 112 / 82; Pulse 68; Resp 22; Temp 98.0(TE); Pulse Ox 92% on 2 lpm NC; Weight 56.7 ph kg; Height 5 ft. 5 in. (165.10 cm); Pain 0/10; 12:02 BP 132 / 58; Pulse 60; Resp 22 S; Pulse Ox 100% on Nebulizer Mask; iw 14:02 BP 112 / 58; Pulse 74; Resp 20 S; Pulse Ox 97% ; Pain 0/10; aj 16:15 BP 119 / 53; Pulse 60; Resp 16 S; Temp 97.5(TE); Pulse Ox 95% on 2 lpm NC; Pain 0/10; iw 17:36 BP 160 / 53; Pulse 63; Resp 16 S; Pulse Ox 96% on 2 lpm NC; Pain 0/10; iw 19:20 BP 148 / 55; Pulse 72; Resp 18; Temp 98; Pulse Ox 98% on 2 lpm NC; tl2 21:02 BP 129 / 49; Pulse 60; Resp 18; Pulse Ox 98% on 2 lpm NC; tl2 22:22 BP 116 / 72; Pulse 62; Resp 18; Pulse Ox 97% on 2 lpm NC; tl2 23:03 BP 134 / 74; Pulse 60; Resp 18; Pulse Ox 97% on 2 lpm NC; tl2 11:16 Body Mass Index 20.80 (56.70 kg, 165.10 cm) ph MDM: 11:14 Patient medically screened. [facility] 12:08 Data reviewed: vital signs, nurses notes. sydnee 13:16 Data reviewed: lab test result(s), EKG, radiologic studies. ED course: Patient states sydnee feeling much better after nebulizer treatment. I discussed the patient with Dr. Acosta due to anemia along with new cxr findings. Dr. Acosta visited with the patient and family. Dr. Acosta recommended administering 2 units of blood and discharging the patient. This was discussed with the patient and family whom agree with the plan of care. Will monitor patient closely while administering blood. . 21:49 Transition of care: After a detail discussion of the patient's case, care is [facility] transferred to Krishna Alatorre MD. 12/18 11:19 Order name: Basic Metabolic Panel; Complete Time: 12:04 [facility] 12/18 11:19 Order name: CBC with Diff; Complete Time: 15:27 [facility] 12/18 11:19 Order name: LFT's; Complete Time: 12:04 [facility] 12/18 11:19 Order name: Magnesium; Complete Time: 12:04 [facility] 12/18 11:19 Order name: NT PRO-BNP; Complete Time: 12:04 [facility] 12/18 11:19 Order name: PT-INR; Complete Time: 12: [facility] 12/18 11:19 Order name: Troponin (emerg Dept Use Only); Complete Time: 12:04 [facility] 12/18 11:24 Order name: Flu; Complete Time: 12:23 [facility] 12/18 11:24 Order name: Lactate; Complete Time: 12:04 [facility] 12/18 11:24 Order name: Blood Culture Adult (2) [facility] 12/18 11:57 Order name: Manual Differential; Complete Time: 15:27 EDMD 12/18 11:59 Order name: Type And Screen [facility] 12/18 12:42 Order name: Bb Add On dh3 12/18 11:19 Order name: XRAY Chest (1 view); Complete Time: 11:40 [facility] 12/18 11:19 Order name: EKG; Complete Time: 11:20 [facility] 12/18 11:19 Order name: Cardiac monitoring; Complete Time: : [facility] 12/18 11:19 Order name: EKG - Nurse/Tech; Complete Time: : [facility] 12/18 11:19 Order name: IV Saline Lock; Complete Time: : [facility] 12/18 11:19 Order name: Labs collected and sent; Complete Time: : [facility] 12/18 11:19 Order name: O2 Per Protocol; Complete Time: 11:23 [facility] 12/18 11:19 Order name: O2 Sat Monitoring; Complete Time: 11:24 [facility] 12/18 14:06 Order name: Packed RBC Leukored -1 [facility] 12/18 16:30 Order name: Diet Regular; Complete Time: 16:31 iw 12/18 22:09 Order name: Hemoglobin; Complete Time: 22:42 tl2 12/18 22:09 Order name: Hematocrit; Complete Time: 22:42 tl2 Administered Medications: 11:55 Drug: Xopenex (3) 1.25 mg Route: Inhalation; iw 11:55 Drug: Lasix 20 mg Route: IVP; Site: PICC; iw 12:30 Follow up: Response: No adverse reaction iw Disposition: 22:42 Co-signature as Attending Physician, Krishna Alatorre MD. pkl Disposition: 12/18/18 22:45 Discharged to Home. Impression: Anemia. Congestive heart failure. - Condition is Stable. - Medication Reconciliation Form, Thank You Letter, Antibiotic Education, Prescription Opioid Use form. - Follow up: Hernan Richmond MD; When: 2 - 3 days; Reason: Re-evaluation by your physician. Signatures: Dispatcher [employer] Mahesh Sol MD MD cha Lam, Pin, MD MD pkl Jacob Alexander PA PA Betty Maza, AKILA RN Roberta Sandoval, RN RN ph Betzy Dorantes RN RN tl2 Corrections: (The following items were deleted from the chart) 23:06 22:45 12/18/2018 22:45 Discharged to Home. Impression: Anemia. Congestive heart tl2 failure. Condition is Stable. Forms are Medication Reconciliation Form, Thank You Letter, Antibiotic Education, Prescription Opioid Use. Follow up: Hernan Richmond; When: 2 - 3 days; Reason: Re-evaluation by your physician. pkl
[2018-12-18 23:59] VITALS: TEMP 98
[2018-12-19 00:30] VITALS: O2SAT 97
[2018-12-19 00:32] VITALS: BP 134/74
== END 2018-12-18 23:06 | disposition home or self-care (01) ==
LOC: ER 11:00
PROC: 30233N1 Transfusion of Nonautologous Red Blood Cells into Peripheral Vein, Percutaneous Approach (ICD-10-PCS; principal; 2018-12-18)
DX: D64.9 Anemia, unspecified (principal); I50.9 Heart failure, unspecified; I10 Essential (primary) hypertension; Z88.5 Allergy status to narcotic agent; Z85.6 Personal history of leukemia; Z85.038 Personal history of other malignant neoplasm of large intestine; Z95.0 Presence of cardiac pacemaker
CPT/HCPCS: 93005; 87040 ×2; 85025; 80048; 36415; 86900; 83735; 86850; 85610; 86901; 80076; 83605; 85018; 85014; 84484; 83880; 87804 ×2; 71045; 96374; 99285; 36430; J1940; P9016 ×2

== ENCOUNTER 2018-12-20 18:33 | Observation (INO) | payer OTHER ==
--- OUTSIDE RECORDS SUMMARY | 2018-12-20 18:35 | XMS REPORT | Clinical Summary ---
:1930 Author Organization [facility] Address [address] [place] [address] Care Team Providers Name Role Phone Hernan [...] Not on file Implants Implanted Type Area Trim Stencil Maker Device Shelf Model / Identifier Expiration Serial / Lot Date Lead Attain Performa 78cm [id number] - [id number] Cardiovascular N/A: [employer] :CARD 10/03/2018 [id number] / Implanted: Qty: 1 on 01/07/2017 by Satya Perales MD Chest RHY: DISEASE [id number] / MGT Ld Endocardial Df4 Act 55 [id number] - [id number] Defibrillators N/A: [employer]:CARD 10/10/2018 [id number] / Implanted: Qty: 1 on 01/07/2017 by Satya Perales MD Chest RHY: DISEASE [id number] / MGT Dev Amplia Quad Cementer Hand-D Surescn [id number] - [id number] Defibrillators N/A: [employer]:CARD 04/24/2018 [id number] / Implanted: Qty: 1 on 01/07/2017 by Satya Perales MD Chest RHY:PACING SYS [id number] / Grft Hemshld Dbl Silvio 0.3x3.0in [id number] - [id number] Graft/Patch Right: GETINGE 04/26/2021 [id number] / Implanted: Qty: 1 on 10/01/2016 by Miguelangel Stack MD Neck IND:MAQUET:CV [id number] / [id number] Lead Pacemkr Capsur Novus 45x1 [id number] - [id number] Pacemaker Lead N/A: [employer]:CARD 09/23/2018 [id number] / Implanted: Qty: 1 on 01/07/2017 by Satya Perales MD Chest RHY: DISEASE [id number] / MGT Results Not on fileafter 12/19/2017 Insurance Payer Benefit Plan / Group Subscriber ID Type Phone Address CARE IMPROVEMENT MEDICARE MGD CARE IMPROVEMENT PLUS xxxxxxxxx CARE Advance Directives For more information, please contact:[address] [phone] Code Status Date Activated Date Inactivated Comments Full Code 01/07/2017 1:15 PM 01/08/2017 4:34 PM This code status was determined by: Patient Full Code 10/01/2016 11:49 AM 10/03/2016 8:34 PM This code status was determined by: Patient Full Code 09/30/2016 6:24 PM 10/01/2016 11:49 AM This code status was determined by: Patient
--- OUTSIDE RECORDS SUMMARY | 2018-12-20 18:36 | XMS REPORT ---
:1930 [facility] Address [address] [place]. [address] [place] [id number] Care Team Providers Name Role Phone CHUCK [...] Value Reference Range Comments MAGNESIUM (BEAKER) (test viax=665) 2.0 mg/dL 1.6-2.6 Specimen slightly hemolyzed BASIC METABOLIC [id number] 05:25:00 Test Item Value Reference Range Comments SODIUM (BEAKER) (test 138 meq/L 136-145 azxb=761) POTASSIUM (BEAKER) (test 4.6 meq/L 3.5-5.1 Specimen slightly tfug=564) hemolyzed CHLORIDE (BEAKER) (test 108 meq/L 98-107 kfvm=320) CO2 (BEAKER) (test 23 meq/L 22-29 evlv=698) BLOOD UREA NITROGEN 14 mg/dL 7-21 (BEAKER) (test kbhh=510) CREATININE (BEAKER) (test 0.87 mg/dL 0.57-1.25 Specimen slightly ernm=815) hemolyzed GLUCOSE RANDOM (BEAKER) 109 mg/dL 70-105 (test fegz=515) CALCIUM (BEAKER) (test 8.9 mg/dL 8.4-10.2 sexk=795) EGFR (BEAKER) (test 62 mL/min/1.73 sq m ESTIMATED GFR IS NOT ohwz=4314) ACCURATE CREATININE CLEARANCE IN PREDICTING GLOMERULAR FILTRATION RATE. ESTIMATED GFR IS NOT APPLICABLE FOR DIALYSIS PATIENTS. CBC (HEMOGRAM ONLY)2017-01-08 05:22:00 Test Item Value Reference Range Comments WHITE BLOOD CELL COUNT (BEAKER) (test dpco=355) 11.1 K/ L 4.0-10.0 RED BLOOD CELL COUNT (BEAKER) (test gcgx=655) 3.62 M/ L 4.00-5.00 HEMOGLOBIN (BEAKER) (test nhum=009) 12.2 GM/DL 12.0-15.0 HEMATOCRIT (BEAKER) (test rkdz=900) 36.3 % 36.0-45.0 MEAN CORPUSCULAR VOLUME (BEAKER) (test lhjd=189) 101.0 fL 82.0-99.0 MEAN CORPUSCULAR HEMOGLOBIN (BEAKER) (test 33.9 pg 27.0-33.0 hczv=199) MEAN CORPUSCULAR HEMOGLOBIN CONC (BEAKER) (test 33.7 GM/DL 32.0-36.0 gavz=408) RED CELL DISTRIBUTION WIDTH (BEAKER) (test 15.2 % 10.3-14.2 tfxl=905) PLATELET COUNT (BEAKER) (test smqk=615) 201 K/CU MM 150-430 MEAN PLATELET VOLUME (BEAKER) (test tyfy=659) 7.6 fL 6.5-10.5 NUCLEATED RED BLOOD CELLS (BEAKER) (test 0 /100 WBC 0-0 futt=806) 0.00CBC (HEMOGRAM ONLY)2017-01-07 05:01:00 Test Item Value Reference Range Comments WHITE BLOOD CELL COUNT (BEAKER) (test zpvl=757) 5.8 K/ L 4.0-10.0 RED BLOOD CELL COUNT (BEAKER) (test hcna=595) 3.68 M/ L 4.00-5.00 HEMOGLOBIN (BEAKER) (test work=848) 12.1 GM/DL 12.0-15.0 HEMATOCRIT (BEAKER) (test lvwe=260) 36.9 % 36.0-45.0 MEAN CORPUSCULAR VOLUME (BEAKER) (test mucq=798) 100.0 fL 82.0-99.0 MEAN CORPUSCULAR HEMOGLOBIN (BEAKER) (test 33.0 pg 27.0-33.0 alzw=840) MEAN CORPUSCULAR HEMOGLOBIN CONC (BEAKER) (test 32.8 GM/DL 32.0-36.0 phzr=284) RED CELL DISTRIBUTION WIDTH (BEAKER) (test 13.5 % 10.3-14.2 obzm=742) PLATELET COUNT (BEAKER) (test ecup=549) 204 K/CU MM 150-430 MEAN PLATELET VOLUME (BEAKER) (test eiip=979) 7.3 fL 6.5-10.5 NUCLEATED RED BLOOD CELLS (BEAKER) (test 0 /100 WBC 0-0 euwg=003) [id number] 02:15:00 Test Item Value Reference Range Comments MAGNESIUM (BEAKER) (test wsat=541) 2.2 mg/dL 1.6-2.6 BASIC METABOLIC [id number] 02:15:00 Test Item Value Reference Range Comments SODIUM (BEAKER) (test 142 meq/L 136-145 mqvs=371) POTASSIUM (BEAKER) (test 4.0 meq/L 3.5-5.1 piey=899) CHLORIDE (BEAKER) (test 110 meq/L 98-107 yxbl=730) CO2 (BEAKER) (test 23 meq/L 22-29 rtyg=563) BLOOD UREA NITROGEN 21 mg/dL 7-21 (BEAKER) (test toyk=554) CREATININE (BEAKER) (test 1.02 mg/dL 0.57-1.25 gddg=312) GLUCOSE RANDOM (BEAKER) 102 mg/dL 70-105 (test wdjl=186) CALCIUM (BEAKER) (test 8.9 mg/dL 8.4-10.2 ledk=007) EGFR (BEAKER) (test 51 mL/min/1.73 sq m ESTIMATED GFR IS NOT nnmb=6303) ACCURATE CREATININE CLEARANCE IN PREDICTING GLOMERULAR FILTRATION RATE. ESTIMATED GFR IS NOT APPLICABLE FOR DIALYSIS PATIENTS. [id number] 02:02:00 Test Item Value Reference Range Comments PARTIAL THROMBOPLASTIN TIME (BEAKER) (test 67.1 seconds 22.5-36.0 mzgz=554) CBC W/PLT COUNT & AUTO [id number] 01:59:00 Test Item Value Reference Range Comments WHITE BLOOD CELL COUNT (BEAKER) (test uonc=882) 5.2 K/ L 4.0-10.0 RED BLOOD CELL COUNT (BEAKER) (test zpeu=660) 3.33 M/ L 4.00-5.00 HEMOGLOBIN (BEAKER) (test hvfz=010) 11.4 GM/DL 12.0-15.0 HEMATOCRIT (BEAKER) (test iqnd=367) 33.5 % 36.0-45.0 MEAN CORPUSCULAR VOLUME (BEAKER) (test uwlz=070) 101.0 fL 82.0-99.0 MEAN CORPUSCULAR HEMOGLOBIN (BEAKER) (test 34.4 pg 27.0-33.0 qpvl=402) MEAN CORPUSCULAR HEMOGLOBIN CONC (BEAKER) (test 34.1 GM/DL 32.0-36.0 bdke=006) RED CELL DISTRIBUTION WIDTH (BEAKER) (test 13.5 % 10.3-14.2 olxa=939) PLATELET COUNT (BEAKER) (test ywwk=990) 184 K/CU MM 150-430 MEAN PLATELET VOLUME (BEAKER) (test ufqg=440) 7.0 fL 6.5-10.5 NUCLEATED RED BLOOD CELLS (BEAKER) (test 0 /100 WBC 0-0 vemq=199) NEUTROPHILS RELATIVE PERCENT (BEAKER) (test 49 % lmrh=667) LYMPHOCYTES RELATIVE PERCENT (BEAKER) (test 34 % ixfj=381) MONOCYTES RELATIVE PERCENT (BEAKER) (test 10 % ubea=730) EOSINOPHILS RELATIVE PERCENT (BEAKER) (test 7 % vmqj=436) BASOPHILS RELATIVE PERCENT (BEAKER) (test 0 % imxz=926) NEUTROPHILS ABSOLUTE COUNT (BEAKER) (test 2.52 K/ L 1.80-8.00 nxmn=073) LYMPHOCYTES ABSOLUTE COUNT (BEAKER) (test 1.75 K/ L 1.48-4.50 bdpz=604) MONOCYTES ABSOLUTE COUNT (BEAKER) (test 0.54 K/ L 0.00-1.30 yhrh=971) EOSINOPHILS ABSOLUTE COUNT (BEAKER) (test 0.34 K/ L 0.00-0.50 sckp=690) BASOPHILS ABSOLUTE COUNT (BEAKER) (test 0.02 K/ L 0.00-0.20 oele=218) 0.00DIGOXIN [id number] 18:00:00 Test Item Value Reference Range Comments DIGOXIN LEVEL (BEAKER) (test aaye=268) 0.4 ng/mL 0.8-2.0 TSH/FREE T4 IF [id number] 18:00:00 Test Item Value Reference Range Comments THYROID STIMULATING HORMONE (BEAKER) (test 1.47 uIU/mL 0.35-4.94 gtxo=495) [id number] 17:35:00 Test Item Value Reference Range Comments MAGNESIUM (BEAKER) (test erie=774) 2.4 mg/dL 1.6-2.6 Fasting lipid panelBASIC METABOLIC [id number] 17:35:00 Test Item Value Reference Range Comments SODIUM (BEAKER) (test 139 meq/L 136-145 hqfp=487) POTASSIUM (BEAKER) (test 3.9 meq/L 3.5-5.1 cvcz=320) CHLORIDE (BEAKER) (test 105 meq/L 98-107 chiz=333) CO2 (BEAKER) (test 27 meq/L 22-29 yisn=769) BLOOD UREA NITROGEN 25 mg/dL 7-21 (BEAKER) (test hhua=836) CREATININE (BEAKER) (test 1.24 mg/dL 0.57-1.25 eufl=055) GLUCOSE RANDOM (BEAKER) 91 mg/dL 70-105 (test oatk=267) CALCIUM (BEAKER) (test 9.4 mg/dL 8.4-10.2 eedg=304) EGFR (BEAKER) (test 41 mL/min/1.73 sq m ESTIMATED GFR IS NOT jioh=8763) ACCURATE CREATININE CLEARANCE IN PREDICTING GLOMERULAR FILTRATION RATE. ESTIMATED GFR IS NOT APPLICABLE FOR DIALYSIS PATIENTS. Fasting lipid panelLIPID [id number] 17:35:00 Test Item Value Reference Range Comments TRIGLYCERIDES (BEAKER) (test kbvf=672) 81 mg/dL CHOLESTEROL (BEAKER) (test lxsi=346) 224 mg/dL HDL CHOLESTEROL (BEAKER) (test aqib=965) 96 mg/dL LDL CHOLESTEROL CALCULATED (BEAKER) (test 112 mg/dL epyc=655) Triglyceride Reference Range: Low Risk <150 Borderline 150- 199 High Risk 200-499 Very High Risk >=500Cholesterol Reference Range: Low Risk <200 Borderline 200-239 High Risk > 240HDL Cholesterol Reference Range: Low Risk >=60 High Risk <40LDL Cholesterol Reference Range: Optimal <100 Near Optimal 100-129 Borderline 130-159 High 160-189 Very High >=190 Fasting lipid panelHEPATIC FUNCTION [id number] 17:35:00 Test Item Value Reference Range Comments TOTAL PROTEIN (BEAKER) (test zllb=578) 7.7 gm/dL 6.0-8.3 ALBUMIN (BEAKER) (test xotm=9923) 3.9 g/dL 3.5-5.0 BILIRUBIN TOTAL (BEAKER) (test tjuu=883) 1.1 mg/dL 0.2-1.2 BILIRUBIN DIRECT (BEAKER) (test ywuh=572) 0.5 mg/dL 0.1-0.5 ALKALINE PHOSPHATASE (BEAKER) (test gwwc=627) 120 U/L 40-150 AST (SGOT) (BEAKER) (test umtf=305) 19 U/L 5-34 ALT (SGPT) (BEAKER) (test jgsz=252) 19 U/L 6-55 Fasting lipid [id number] 17:24:00 Test Item Value Reference Range Comments PARTIAL THROMBOPLASTIN TIME (BEAKER) (test 37.0 seconds 22.5-36.0 jvwd=996) Prior to initiating heparinPROTHROMBIN TIME/[id number] 17:23:00 Test Item Value Reference Range Comments PROTIME (BEAKER) (test dijt=352) 14.3 seconds 11.7-14.7 INR (BEAKER) (test siwq=743) 1.1 <=5.9 RECOMMENDED COUMADIN/WARFARIN INR THERAPY RANGESSTANDARD DOSE: 2.0 - 3.0 Includes: PROPHYLAXIS forvenous thrombosis, systemic embolization; TREATMENT for venous thrombosis and/or pulmonary embolus.HIGH RISK: Target INR is 2.5-3.5 for patients with mechanical heart valves.Prior to initiating [id number] 17:23:00 Test Item Value Reference Range Comments PARTIAL THROMBOPLASTIN TIME (BEAKER) (test 36.6 seconds 22.5-36.0 vint=887) Prior to initiating heparinCBC W/PLT COUNT & AUTO [id number] 17: 20:00 Test Item Value Reference Range Comments WHITE BLOOD CELL COUNT (BEAKER) (test eovc=141) 6.1 K/ L 4.0-10.0 RED BLOOD CELL COUNT (BEAKER) (test vkxi=657) 3.72 M/ L 4.00-5.00 HEMOGLOBIN (BEAKER) (test furo=255) 12.4 GM/DL 12.0-15.0 HEMATOCRIT (BEAKER) (test sily=803) 37.4 % 36.0-45.0 MEAN CORPUSCULAR VOLUME (BEAKER) (test rkto=592) 101.0 fL 82.0-99.0 MEAN CORPUSCULAR HEMOGLOBIN (BEAKER) (test 33.5 pg 27.0-33.0 rncv=332) MEAN CORPUSCULAR HEMOGLOBIN CONC (BEAKER) (test 33.2 GM/DL 32.0-36.0 xver=786) RED CELL DISTRIBUTION WIDTH (BEAKER) (test 13.5 % 10.3-14.2 qufh=078) PLATELET COUNT (BEAKER) (test mduz=965) 219 K/CU MM 150-430 MEAN PLATELET VOLUME (BEAKER) (test nvwp=037) 7.0 fL 6.5-10.5 NUCLEATED RED BLOOD CELLS (BEAKER) (test 0 /100 WBC 0-0 qyfy=142) NEUTROPHILS RELATIVE PERCENT (BEAKER) (test 51 % rlvn=708) LYMPHOCYTES RELATIVE PERCENT (BEAKER) (test 33 % znve=268) MONOCYTES RELATIVE PERCENT (BEAKER) (test 10 % ksvw=809) EOSINOPHILS RELATIVE PERCENT (BEAKER) (test 5 % dhur=165) BASOPHILS RELATIVE PERCENT (BEAKER) (test 1 % tpiu=075) NEUTROPHILS ABSOLUTE COUNT (BEAKER) (test 3.09 K/ L 1.80-8.00 ncyx=261) LYMPHOCYTES ABSOLUTE COUNT (BEAKER) (test 1.99 K/ L 1.48-4.50 xode=193) MONOCYTES ABSOLUTE COUNT (BEAKER) (test 0.62 K/ L 0.00-1.30 icmh=536) EOSINOPHILS ABSOLUTE COUNT (BEAKER) (test 0.31 K/ L 0.00-0.50 nsec=963) BASOPHILS ABSOLUTE COUNT (BEAKER) (test 0.08 K/ L 0.00-0.20 kvpf=920) PLATELET [id number] 17:16:00 Test Item Value Reference Range Comments PLATELET COUNT (BEAKER) (test kise=412) 219 K/CU MM 150-430 BASIC METABOLIC [id number] 04:55:00 Test Item Value Reference Range Comments SODIUM (BEAKER) (test 141 meq/L 136-145 edyj=128) POTASSIUM (BEAKER) (test 3.3 meq/L 3.5-5.1 lxte=839) CHLORIDE (BEAKER) (test 104 meq/L 98-107 bwpg=923) CO2 (BEAKER) (test 28 meq/L 22-29 bcrl=159) BLOOD UREA NITROGEN 14 mg/dL 7-21 (BEAKER) (test wnsr=764) CREATININE (BEAKER) (test 0.80 mg/dL 0.57-1.25 sdta=642) GLUCOSE RANDOM (BEAKER) 97 mg/dL 70-105 (test bwzn=198) CALCIUM (BEAKER) (test 8.9 mg/dL 8.4-10.2 yacb=361) EGFR (BEAKER) (test 68 mL/min/1.73 sq m ESTIMATED GFR IS NOT zhbm=7490) ACCURATE CREATININE CLEARANCE IN PREDICTING GLOMERULAR FILTRATION RATE. ESTIMATED GFR IS NOT APPLICABLE FOR DIALYSIS PATIENTS. CBC (HEMOGRAM ONLY)2016-10-03 04:47:00 Test Item Value Reference Range Comments WHITE BLOOD CELL COUNT (BEAKER) (test ujlx=719) 7.8 K/ L 4.0-10.0 RED BLOOD CELL COUNT (BEAKER) (test qlei=703) 3.12 M/ L 4.00-5.00 HEMOGLOBIN (BEAKER) (test itij=903) 11.2 GM/DL 12.0-15.0 HEMATOCRIT (BEAKER) (test opzp=968) 32.5 % 36.0-45.0 MEAN CORPUSCULAR VOLUME (BEAKER) (test tmbz=557) 104.0 fL 82.0-99.0 MEAN CORPUSCULAR HEMOGLOBIN (BEAKER) (test 35.8 pg 27.0-33.0 pjhk=769) MEAN CORPUSCULAR HEMOGLOBIN CONC (BEAKER) (test 34.4 GM/DL 32.0-36.0 ylal=786) RED CELL DISTRIBUTION WIDTH (BEAKER) (test 12.8 % 10.3-14.2 qlfo=698) PLATELET COUNT (BEAKER) (test obgs=358) 190 K/CU MM 150-430 MEAN PLATELET VOLUME (BEAKER) (test oyqg=816) 7.4 fL 6.5-10.5 NUCLEATED RED BLOOD CELLS (BEAKER) (test 0 /100 WBC 0-0 clbf=326) 0.00PT/[id number] 04:41:00 Test Item Value Reference Range Comments PROTIME (BEAKER) (test slfj=869) 13.1 seconds 11.7-14.7 INR (BEAKER) (test tfoc=706) 1.0 <=5.9 PARTIAL THROMBOPLASTIN TIME (BEAKER) (test 28.1 seconds 22.5-36.0 gzmn=176) RECOMMENDED COUMADIN/WARFARIN INR THERAPY RANGESSTANDARD DOSE: 2.0 - 3.0 Includes: PROPHYLAXIS forvenous thrombosis, systemic embolization; TREATMENT for venous thrombosis and/or pulmonary embolus.HIGH RISK: Target INR is 2.5-3.5 for patients with mechanical heart valves.CREATINE KINASE (CK), TOTAL AND [id number] 04:53:00 Test Item Value Reference Range Comments CREATINE KINASE TOTAL (BEAKER) (test fnnm=336) 36 U/L 29-200 CREATINE KINASE-MB (BEAKER) (test imyp=528) 1.6 ng/mL 0.0-6.6 CREATINE KINASE-MB INDEX (BEAKER) (test yzyk=387) 4.4 % Effective 06/14/2014: CK-MB Reference Range ChangeNew: 0.0-6.6 Previous: 0.0- 4.9CK-MB Reference Range:<6.7 Normal6.7-10.0 Borderline>10.0 AbnormalTROPONIN [id number] 04:53:00 Test Item Value Reference Range Comments TROPONIN I (BEAKER) (test yhfa=157) 0.03 ng/mL 0.00-0.03 Effective 06/14/2014: Reference Range [...] acute neurological disease, and persistent tachyarrhythmia.BASIC METABOLIC [id number] 04:46:00 Test Item Value Reference Range Comments SODIUM (BEAKER) (test 139 meq/L 136-145 tkqu=512) POTASSIUM (BEAKER) (test 3.7 meq/L 3.5-5.1 jndp=665) CHLORIDE (BEAKER) (test 104 meq/L 98-107 sltd=405) CO2 (BEAKER) (test 27 meq/L 22-29 jfid=630) BLOOD UREA NITROGEN 14 mg/dL 7-21 (BEAKER) (test wtkl=312) CREATININE (BEAKER) (test 0.82 mg/dL 0.57-1.25 byxu=251) GLUCOSE RANDOM (BEAKER) 102 mg/dL 70-105 (test gddl=404) CALCIUM (BEAKER) (test 9.1 mg/dL 8.4-10.2 aura=995) EGFR (BEAKER) (test 66 mL/min/1.73 sq m ESTIMATED GFR IS NOT vkyi=2368) ACCURATE CREATININE CLEARANCE IN PREDICTING GLOMERULAR FILTRATION RATE. ESTIMATED GFR IS NOT APPLICABLE FOR DIALYSIS PATIENTS. [id number] 04:41:00 Test Item Value Reference Range Comments PROTIME (BEAKER) (test fyes=036) 13.5 seconds 11.7-14.7 INR (BEAKER) (test pvpu=050) 1.0 <=5.9 PARTIAL THROMBOPLASTIN TIME (BEAKER) (test 33.1 seconds 22.5-36.0 tait=141) RECOMMENDED COUMADIN/WARFARIN INR THERAPY RANGESSTANDARD DOSE: 2.0 - 3.0 Includes: PROPHYLAXIS forvenous thrombosis, systemic embolization; TREATMENT for venous thrombosis and/or pulmonary embolus.HIGH RISK: Target INR is 2.5-3.5 for patients with mechanical heart valves.CBC (HEMOGRAM ONLY)2016-10-02 04:33:00 Test Item Value Reference Range Comments WHITE BLOOD CELL COUNT (BEAKER) (test eoba=203) 9.4 K/ L 4.0-10.0 RED BLOOD CELL COUNT (BEAKER) (test aqjk=467) 3.07 M/ L 4.00-5.00 HEMOGLOBIN (BEAKER) (test jafy=935) 11.0 GM/DL 12.0-15.0 HEMATOCRIT (BEAKER) (test tkmp=301) 31.9 % 36.0-45.0 MEAN CORPUSCULAR VOLUME (BEAKER) (test htop=414) 104.0 fL 82.0-99.0 MEAN CORPUSCULAR HEMOGLOBIN (BEAKER) (test 36.0 pg 27.0-33.0 odrf=190) MEAN CORPUSCULAR HEMOGLOBIN CONC (BEAKER) (test 34.6 GM/DL 32.0-36.0 gqgi=541) RED CELL DISTRIBUTION WIDTH (BEAKER) (test 12.7 % 10.3-14.2 aopv=688) PLATELET COUNT (BEAKER) (test kbni=917) 205 K/CU MM 150-430 MEAN PLATELET VOLUME (BEAKER) (test arzf=543) 7.3 fL 6.5-10.5 NUCLEATED RED BLOOD CELLS (BEAKER) (test 0 /100 WBC 0-0 ivyj=417) 0.00TSH/FREE T4 IF [id number] 19:30:00 Test Item Value Reference Range Comments THYROID STIMULATING HORMONE (BEAKER) (test 0.43 uIU/mL 0.35-4.94 pdwt=963) CREATINE KINASE (CK), TOTAL AND [id number] 19:14:00 Test Item Value Reference Range Comments CREATINE KINASE TOTAL (BEAKER) (test dwpo=085) 53 U/L 29-200 CREATINE KINASE-MB (BEAKER) (test drkk=911) 2.6 ng/mL 0.0-6.6 CREATINE KINASE-MB INDEX (BEAKER) (test ofhg=357) 4.9 % Effective 06/14/2014: CK-MB Reference Range ChangeNew: 0.0-6.6 Previous: 0.0- 4.9CK-MB Reference Range:<6.7 Normal6.7-10.0 Borderline>10.0 AbnormalTROPONIN [id number] 19:14:00 Test Item Value Reference Range Comments TROPONIN I (BEAKER) (test cxrk=704) 0.01 ng/mL 0.00-0.03 Effective 06/14/2014: Reference Range [...] renalfailure, acidosis, acute neurological disease, and persistent tachyarrhythmia.[id number] 15:20: 00 Test Item Value Reference Range Comments MAGNESIUM (BEAKER) (test czaj=317) 1.9 mg/dL 1.6-2.6 BASIC METABOLIC [id number] 15:20:00 Test Item Value Reference Range Comments SODIUM (BEAKER) (test 141 meq/L 136-145 skgo=913) POTASSIUM (BEAKER) (test 3.9 meq/L 3.5-5.1 lecj=723) CHLORIDE (BEAKER) (test 108 meq/L 98-107 flzl=840) CO2 (BEAKER) (test 25 meq/L 22-29 zhlq=208) BLOOD UREA NITROGEN 14 mg/dL 7-21 (BEAKER) (test sxyy=963) CREATININE (BEAKER) (test 0.84 mg/dL 0.57-1.25 grmc=470) GLUCOSE RANDOM (BEAKER) 130 mg/dL 70-105 (test uwps=779) CALCIUM (BEAKER) (test 8.8 mg/dL 8.4-10.2 dygz=974) EGFR (BEAKER) (test 64 mL/min/1.73 sq m ESTIMATED GFR IS NOT trlo=9506) ACCURATE CREATININE CLEARANCE IN PREDICTING GLOMERULAR FILTRATION RATE. ESTIMATED GFR IS NOT APPLICABLE FOR DIALYSIS PATIENTS. CBC (HEMOGRAM ONLY)2016-10-01 14:52:00 Test Item Value Reference Range Comments WHITE BLOOD CELL COUNT (BEAKER) (test cjpl=405) 10.1 K/ L 4.0-10.0 RED BLOOD CELL COUNT (BEAKER) (test nmmf=967) 3.40 M/ L 4.00-5.00 HEMOGLOBIN (BEAKER) (test wzvw=675) 11.9 GM/DL 12.0-15.0 HEMATOCRIT (BEAKER) (test qnyb=159) 34.6 % 36.0-45.0 MEAN CORPUSCULAR VOLUME (BEAKER) (test zhef=330) 102.0 fL 82.0-99.0 MEAN CORPUSCULAR HEMOGLOBIN (BEAKER) (test 35.1 pg 27.0-33.0 grzi=802) MEAN CORPUSCULAR HEMOGLOBIN CONC (BEAKER) (test 34.5 GM/DL 32.0-36.0 jagj=916) RED CELL DISTRIBUTION WIDTH (BEAKER) (test 13.5 % 10.3-14.2 xsgv=358) PLATELET COUNT (BEAKER) (test eaox=170) 204 K/CU MM 150-430 MEAN PLATELET VOLUME (BEAKER) (test jpai=934) 7.4 fL 6.5-10.5 NUCLEATED RED BLOOD CELLS (BEAKER) (test 0 /100 WBC 0-0 nyrw=301) 0.00BASIC METABOLIC [id number] 11:00:00 Test Item Value Reference Range Comments SODIUM (BEAKER) (test 142 meq/L 136-145 tlqe=008) POTASSIUM (BEAKER) (test 4.5 meq/L 3.5-5.1 caky=512) CHLORIDE (BEAKER) (test 103 meq/L 98-107 qkpq=116) CO2 (BEAKER) (test 28 meq/L 22-29 wbrq=363) BLOOD UREA NITROGEN 28 mg/dL 7-21 (BEAKER) (test tqrv=304) CREATININE (BEAKER) (test 1.04 mg/dL 0.57-1.25 ewmb=640) GLUCOSE RANDOM (BEAKER) 98 mg/dL 70-105 (test xuqh=035) CALCIUM (BEAKER) (test 9.8 mg/dL 8.4-10.2 mkim=793) EGFR (BEAKER) (test 50 mL/min/1.73 sq m ESTIMATED GFR IS NOT gplt=0432) ACCURATE CREATININE CLEARANCE IN PREDICTING GLOMERULAR FILTRATION RATE. ESTIMATED GFR IS NOT APPLICABLE FOR DIALYSIS PATIENTS. CBC W/PLT COUNT & AUTO [id number] 10:59:00 Test Item Value Reference Range Comments WHITE BLOOD CELL COUNT (BEAKER) (test ymyv=409) 7.0 K/ L 4.0-10.0 RED BLOOD CELL COUNT (BEAKER) (test ernx=106) 3.77 M/ L 4.00-5.00 HEMOGLOBIN (BEAKER) (test zijj=112) 13.2 GM/DL 12.0-15.0 HEMATOCRIT (BEAKER) (test vybr=474) 38.5 % 36.0-45.0 MEAN CORPUSCULAR VOLUME (BEAKER) (test oekd=435) 102.0 fL 82.0-99.0 MEAN CORPUSCULAR HEMOGLOBIN (BEAKER) (test 34.9 pg 27.0-33.0 uzgl=389) MEAN CORPUSCULAR HEMOGLOBIN CONC (BEAKER) (test 34.2 GM/DL 32.0-36.0 farg=737) RED CELL DISTRIBUTION WIDTH (BEAKER) (test 13.6 % 10.3-14.2 yuqq=756) PLATELET COUNT (BEAKER) (test jtcu=187) 233 K/CU MM 150-430 MEAN PLATELET VOLUME (BEAKER) (test ipvf=561) 7.3 fL 6.5-10.5 NUCLEATED RED BLOOD CELLS (BEAKER) (test 0 /100 WBC 0-0 zahc=734) NEUTROPHILS RELATIVE PERCENT (BEAKER) (test 60 % lswb=871) LYMPHOCYTES RELATIVE PERCENT (BEAKER) (test 27 % olsd=079) MONOCYTES RELATIVE PERCENT (BEAKER) (test 9 % enho=006) EOSINOPHILS RELATIVE PERCENT (BEAKER) (test 3 % eprq=287) BASOPHILS RELATIVE PERCENT (BEAKER) (test 1 % iaqk=468) NEUTROPHILS ABSOLUTE COUNT (BEAKER) (test 4.20 K/ L 1.80-8.00 gtkt=244) LYMPHOCYTES ABSOLUTE COUNT (BEAKER) (test 1.92 K/ L 1.48-4.50 fine=502) MONOCYTES ABSOLUTE COUNT (BEAKER) (test 0.60 K/ L 0.00-1.30 ksla=647) EOSINOPHILS ABSOLUTE COUNT (BEAKER) (test 0.23 K/ L 0.00-0.50 qgjk=316) BASOPHILS ABSOLUTE COUNT (BEAKER) (test 0.07 K/ L 0.00-0.20 rlgx=809) 0.00PT/[id number] 10:58:00 Test Item Value Reference Range Comments PROTIME (BEAKER) (test qvrj=599) 12.7 seconds 11.7-14.7 INR (BEAKER) (test qpvv=852) 1.0 <=5.9 PARTIAL THROMBOPLASTIN TIME (BEAKER) (test 29.7 seconds 22.5-36.0 atbs=480) RECOMMENDED COUMADIN/WARFARIN INR THERAPY RANGESSTANDARD DOSE: 2.0 - 3.0 Includes: PROPHYLAXIS forvenous thrombosis, systemic embolization; TREATMENT for venous thrombosis and/or pulmonary embolus.HIGH RISK: Target INR is 2.5-3.5 for patients with mechanical heart valves.
[2018-12-20 19:58] LABS: Protime INR 1.11
[2018-12-20 20:01] LABS: Hematocrit 23.3 % (36.0-45.0); MPV 8.6 fL (7.6-11.3); RBC Red Blood Cell Count 2.43 M/uL (3.86-4.86)
[2018-12-20 20:15] LABS: Magnesium 2.7 mg/dL (1.8-2.4); Potassium 4.5 mmol/L (3.5-5.1); Troponin (Emerg Dept Use Only) 0.02 ng/mL (0.0-0.045)
[2018-12-20] MEDS ORDERED: FUROSEMIDE 40 MG/4 ML VIAL ONE (20:16)
[2018-12-20 20:36] LABS: Anisocytosis 2+; Blood Morphology Comment NOTED (NOT SEEN); Hypochromasia 2+; Macrocytosis 2+; Platelet Estimate INCR; Platelets, Giant NOTED; Polychromasia 2+
--- NOTE | 2018-12-20 21:01 | RAD REPORT ---
EXAM DESCRIPTION: RAD - Chest Single View - 12/20/2018 7:37 pm CLINICAL HISTORY: Dyspnea, shortness of breath COMPARISON: December 18 TECHNIQUE: AP portable chest image was obtained 1933 hours . FINDINGS: Pacemaker/defibrillator is in place. Diffusely prominent interstitial markings are present . Pleural effusions are again noted. Failure/ volume overload is favored. Pattern is not substantiall y different from comparison. Left hemidiaphragm elevation noted. Mild cardiomegaly is present. No pne umothorax. No acute bony abnormality seen. No acute aortic findings suspected. IMPRESSION: CHF/volume overload pattern similar to comparison.
[2018-12-20] MEDS ORDERED: ACETAMINOPHEN 500 MG TAB PO PRN (21:24)
[2018-12-20] MEDS ORDERED: ONDANSETRON 4 MG/2 ML VIAL IV PRN (21:24)
[2018-12-20] MEDS ORDERED: ALBUTEROL 2.5 MG/3 ML NEB SOL NEB PRN (21:24)
[2018-12-20] MEDS ORDERED: IPRATROPIUM BROM 0.5MG/2.5ML NEB PRN (21:24)
--- NOTE | 2018-12-20 21:27 | ER ---
Nurse's Notes [facility] Name: Nikky Ocampo Age: 88 yrs Sex: Female : 1930 Arrival Date: 12/20/2018 Time: 18:36 Bed 2 Private MD: Hernan Richmond E Diagnosis: Acute systolic (congestive) heart failure;Hypoxemia;Gastrointestinal hemorrhage, unspecified Presentation: 12/20 18:41 Presenting complaint: Child states: She woke up this morning feeling nausea, SOB, and la1 just feeling bad. Transition of care: patient was not received from another setting of care. Onset of symptoms was December 20, 2018. Risk Assessment: Do you want to hurt yourself or someone else? Patient reports no desire to harm self or others. Initial Sepsis Screen: Does the patient meet any 2 criteria? No. Patient's initial sepsis screen is negative. Does the patient have a suspected source of infection? No. Patient's initial sepsis screen is negative. Care prior to arrival: None. 18:41 Method Of Arrival: Wheelchair la1 18:41 Acuity: TASIA 2 la1 Historical: - Allergies: 18:42 Codeine; la1 - PMHx: 18:42 CHF; Chronic leukemia; colon cancer; Hypertension; Pacemaker; la1 - Immunization history:: Adult Immunizations up to date. - Social history:: Smoking status: Patient/guardian denies using tobacco. - Ebola Screening: : No symptoms or risks identified at this time. Screenin:26 Abuse screen: Denies threats or abuse. Nutritional screening: No deficits noted. ea Tuberculosis screening: No symptoms or risk factors identified. Fall Risk IV access (20 points). Assessment: 19:21 General: Appears uncomfortable, Behavior is calm, cooperative, appropriate for age. ea Pain: Denies pain. Neuro: Level of Consciousness is awake, alert, obeys commands, Oriented to person, place, time. Cardiovascular: Heart tones S1 S2 present Patient's skin is warm and dry. Respiratory: Airway is patent Respiratory effort is even, unlabored, Respiratory pattern is regular, symmetrical, Breath sounds with rhonchi bilaterally. Respiratory: Pt currently on O2 at 3L per N/C. GI: Abdomen is non-distended. Derm: Skin is pink, warm \T\ dry. 20:06 Reassessment: Critical lab for Hgb 7.4 and platelet 1245 obtained from lab, provider ea notified. 20:32 Reassessment: Patient and/or family updated on plan of care and expected duration. Pain ea level reassessed. Patient is alert, oriented x 3, equal unlabored respirations, skin warm/dry/pink. 22:35 Reassessment: Patient and/or family updated on plan of care and expected duration. Pain jd3 level reassessed. Patient is alert, oriented x 3, equal unlabored respirations, skin warm/dry/pink. report given to Tuan WILBURN. 23:24 Reassessment: Patient and/or family updated on plan of care and expected duration. Pain ea level reassessed. Patient is alert, oriented x 3, equal unlabored respirations, skin warm/dry/pink. Daughter reported pt had a tarry bowel movement, provider notified. Positive occult guaiac. 12/21 00:28 Reassessment: Patient and/or family updated on plan of care and expected duration. Pain ea level reassessed. Patient is alert, oriented x 3, equal unlabored respirations, skin warm/dry/pink. Provider at bedside updating pt on plan of care. 00:38 Reassessment: Patient and/or family updated on plan of care and expected duration. Pain ea level reassessed. Patient is alert, oriented x 3, equal unlabored respirations, skin warm/dry/pink. Pt admitted to fourth floor, pt left via stretcher per tech with O2 at 3 L, pt tolerating well. Pt accompanied by daughters. Vital Signs: 12/20 18:42 BP 127 / 51; Pulse 62; Resp 16; Temp 98.6; Pulse Ox 84% on 2 lpm NC; Weight 56.7 kg; la1 Height 5 ft. 5 in. (165.10 cm); 18:55 BP 149 / 89; Pulse 89; Resp 20; Pulse Ox 99% on 3 lpm NC; hj 19:28 BP 128 / 49; Pulse 61; Resp 17; Pulse Ox 99% on 3 lpm NC; ea 20:29 BP 145 / 71; Pulse 63; Resp 17; Pulse Ox 99% on 3 lpm NC; ea 21:13 BP 141 / 50; Pulse 64; Resp 18; Pulse Ox 99% ; ea 22:08 BP 134 / 51; Pulse 63; Resp 17; Temp 98.4; Pulse Ox 100% on 3 lpm NC; ea : BP 106 / 61; Pulse 60; Resp 20; Pulse Ox 100% on R/A; ea 12/21 00:30 BP 106 / 60; Pulse 60; Resp 18; Temp 98.4; Pulse Ox 99% ; ea 12/20 18:42 Body Mass Index 20.80 (56.70 kg, 165.10 cm) la1 ED Course: 12/20 18:36 Patient arrived in ED. rg4 18:37 Hernan Richmond MD is Private Physician. rg4 18:42 Triage completed. la1 18:42 Arm band placed on left wrist. la1 19:21 Adina Carrillo, AKILA is Primary Nurse. ea 19:21 Chris Spencer MD is Attending Physician. gs 19:26 Patient has correct armband on for positive identification. Bed in low position. Call ea light in reach. Side rails up X2. 19:38 XRAY Chest (1 view) In Process Unspecified. EDMS 21:24 Tanner Pearl MD is Hospitalizing Provider. gs 22:09 No provider procedures requiring assistance completed. Patient admitted, IV remains in ea place. Administered Medications: 20:28 Drug: Lasix 40 mg Route: IVP; Site: right upper arm; ea 21:33 Follow up: Response: No adverse reaction ea 23:40 Drug: ProTONIX 8 mg/hr Route: IV; Rate: 25 ml/hr; Site: right upper arm; ea 12/21 00:44 Follow up: IV Status: Infusion continued upon admission ea 12/20 23:40 Drug: ProTONIX 40 mg Route: IVP; Site: left upper arm; ea 12/21 00:15 Follow up: Response: No adverse reaction ea Outcome: 12/20 21:27 Decision to Hospitalize by Provider. gs 22:10 Instructed on the need for admit. ea 22:10 Demonstrated understanding of instructions. 12/21 00:32 Admitted to Med/surg accompanied by tech, room 414, with oxygen, with chart, Report ea called to Tuan WILBURN Condition: stable 00:43 Patient left the ED. ea Signatures: Dispatcher [employer] EDMS Leonid Kenny RN RN la1 Jony Gifford RN RN hj Garcia, Rubi rg4 Adina Carrillo RN RN ea Starr, Chris, MD MD gs Tha Velez RN RN jd3
--- NOTE | 2018-12-20 21:28 | EDPHYS ---
Physician Documentation [facility] Name: Nikky Ocampo Age: 88 yrs Sex: Female : 1930 Arrival Date: 12/20/2018 Time: 18:36 Bed 2 Private MD: Hernan Richmond E ED Physician Chris Spencer HPI: 12/20 21:18 This 88 yrs old Female presents to ER via Wheelchair with complaints of gs Doesn't Feel Well. 21:18 The patient has shortness of breath at rest. Onset: The symptoms/episode began/occurred gs today. Duration: The symptoms are continuous, and are steadily getting worse. The patient's shortness of breath is aggravated by exertion. Associated signs and symptoms: Pertinent negatives: non-productive cough. Severity of symptoms: At their worst the symptoms were severe in the emergency department the symptoms are unchanged. The patient has experienced similar episodes in the past, a few times. The patient has been recently seen at the [facility] Emergency Department, last week. Historical: - Allergies: 18:42 Codeine; la1 - PMHx: 18:42 CHF; Chronic leukemia; colon cancer; Hypertension; Pacemaker; la1 - Immunization history:: Adult Immunizations up to date. - Social history:: Smoking status: Patient/guardian denies using tobacco. - Ebola Screening: : No symptoms or risks identified at this time. ROS: 21:18 All other systems are negative. gs Exam: 21:18 Head/Face: Normocephalic, atraumatic. Eyes: Pupils equal round and reactive to light, gs extra-ocular motions intact. Lids and lashes normal. Conjunctiva and sclera are non-icteric and not injected. Cornea within normal limits. Periorbital areas with no swelling, redness, or edema. ENT: Nares patent. No nasal discharge, no septal abnormalities noted. Tympanic membranes are normal and external auditory canals are clear. Oropharynx with no redness, swelling, or masses, exudates, or evidence of obstruction, uvula midline. Mucous membranes moist. Neck: Trachea midline, no thyromegaly or masses palpated, and no cervical lymphadenopathy. Supple, full range of motion without nuchal rigidity, or vertebral point tenderness. No Meningismus. Chest/axilla: Normal chest wall appearance and motion. Nontender with no deformity. No lesions are appreciated. Cardiovascular: Regular rate and rhythm with a normal S1 and S2. No gallops, murmurs, or rubs. Normal PMI, no JVD. No pulse deficits. Abdomen/GI: Soft, non-tender, with normal bowel sounds. No distension or tympany. No guarding or rebound. No evidence of tenderness throughout. Back: No spinal tenderness. No costovertebral tenderness. Full range of motion. Skin: Warm, dry with normal turgor. Normal color with no rashes, no lesions, and no evidence of cellulitis. MS/ Extremity: Pulses equal, no cyanosis. Neurovascular intact. Full, normal range of motion. Neuro: Awake and alert, GCS 15, oriented to person, place, time, and situation. Cranial nerves II-XII grossly intact. Motor strength 5/5 in all extremities. Sensory grossly intact. Cerebellar exam normal. Normal gait. 21:18 Constitutional: The patient appears alert, awake, in obvious distress, severely distressed. 21:18 Cardiovascular: Edema: 2+ edema to level of left ankle and right ankle. 21:18 Respiratory: severe repiratory distress is noted, Respirations: shallow respirations, Breath sounds: rales, are located in both bases. 21:18 Respiratory: o2 sat 85% on 2 l her usual home o2. 21:29 ECG was reviewed by the Attending Physician. gs 23:15 Abdomen/GI: Rectal exam: Stool: guaiac positive, black. Vital Signs: 18:42 BP 127 / 51; Pulse 62; Resp 16; Temp 98.6; Pulse Ox 84% on 2 lpm NC; Weight 56.7 kg; la1 Height 5 ft. 5 in. (165.10 cm); 18:55 BP 149 / 89; Pulse 89; Resp 20; Pulse Ox 99% on 3 lpm NC; hj 19:28 BP 128 / 49; Pulse 61; Resp 17; Pulse Ox 99% on 3 lpm NC; ea 20:29 BP 145 / 71; Pulse 63; Resp 17; Pulse Ox 99% on 3 lpm NC; ea 21:13 BP 141 / 50; Pulse 64; Resp 18; Pulse Ox 99% ; ea 22:08 BP 134 / 51; Pulse 63; Resp 17; Temp 98.4; Pulse Ox 100% on 3 lpm NC; ea 23:26 BP 106 / 61; Pulse 60; Resp 20; Pulse Ox 100% on R/A; 12/21 00:30 BP 106 / 60; Pulse 60; Resp 18; Temp 98.4; Pulse Ox 99% ; 12/20 18:42 Body Mass Index 20.80 (56.70 kg, 165.10 cm) la1 MDM: 12/20 19:21 Patient medically screened. 21:18 Differential diagnosis: CHF exacerbation, Chronic Obstructive Pulmonary Disease gs Myocardial Infarction pneumonia. Data reviewed: vital signs, nurses notes, old medical records. Counseling: I had a detailed discussion with the patient and/or guardian regarding: the historical points, exam findings, and any diagnostic results supporting the discharge/admit diagnosis, the need for outpatient follow up. 21:33 Data reviewed: lab test result(s), EKG, radiologic studies. 12/21 00:28 ED course: pt does not want transfer, wants to be admitted here, dr fernandes prefers that she go to a tertiary center for sb workup but will see her Friday if in house. dr bang ok with this plan, also family is considering hospice.. 12/20 19:22 Order name: Magnesium; Complete Time: 20:46 12/20 19:22 Order name: Basic Metabolic Panel; Complete Time: 20:46 12/20 19:22 Order name: CBC with Diff; Complete Time: 20:46 12/20 19:22 Order name: NT PRO-BNP; Complete Time: 20:46 12/20 19:22 Order name: PT-INR; Complete Time: 20:09 12/20 19:22 Order name: Troponin (emerg Dept Use Only); Complete Time: 20:46 12/20 20:08 Order name: Manual Differential; Complete Time: 20:46 [facility] 12/20 21:30 Order name: Comprehensive Metabolic Panel [facility] 12/20 21:30 Order name: Comprehensive Metabolic Panel [facility] 12/20 21:31 Order name: CBC with Automated Diff [facility] 12/20 21:31 Order name: CBC with Automated Diff [facility] 12/20 21:31 Order name: Magnesium EDMS 12/20 21:31 Order name: Magnesium EDMS 12/20 21:31 Order name: Phosphorus [facility] 12/20 19:22 Order name: XRAY Chest (1 view); Complete Time: 21:05 12/20 19:22 Order name: EKG; Complete Time: 19:24 12/20 19:22 Order name: Cardiac monitoring; Complete Time: : 12/20 19:22 Order name: EKG - Nurse/Tech; Complete Time: :26 12/20 19:22 Order name: IV Saline Lock; Complete Time: : 12/20 19:22 Order name: Labs collected and sent; Complete Time: 19:48 12/20 19:22 Order name: O2 Per Protocol; Complete Time: : 12/20 19:22 Order name: O2 Sat Monitoring; Complete Time: : 12/20 21:31 Order name: Heart Healthy [facility] 12/20 21:31 Order name: Phosphorus EDMS 12/20 21:31 Order name: NT PRO-BNP [facility] 12/20 21:31 Order name: NT PRO-BNP EDMS EC/26 21:29 Rate is 64 beats/min. Rhythm is regular. CT interval is normal. QRS interval is gs prolonged. ST Segment is depressed in leads V1, V2, V3. Clinical impression: Abnormal EKG without significant change. Interpreted by me. Administered Medications: 20:28 Drug: Lasix 40 mg Route: IVP; Site: right upper arm; 21:33 Follow up: Response: No adverse reaction 23:40 Drug: ProTONIX 8 mg/hr Route: IV; Rate: 25 ml/hr; Site: right upper arm; 12/21 00:44 Follow up: IV Status: Infusion continued upon admission 12/20 23:40 Drug: ProTONIX 40 mg Route: IVP; Site: left upper arm; 12/21 00:15 Follow up: Response: No adverse reaction ea Disposition: 12/20 21:18 Critical Care:. 12/21 00:26 Critical Care:. Disposition: 12/20/18 21:27 Hospitalization ordered by Tanner Bang for Inpatient Admission. Preliminary diagnosis are Acute systolic (congestive) heart failure, Hypoxemia, Gastrointestinal hemorrhage, unspecified. - Bed requested for Telemetry/MedSurg (Inpatient). - Status is Inpatient Admission. ea - Condition is Stable. - Problem is an acute exacerbation. - Symptoms have improved. UTI on Admission? No Critical care time excluding procedures: 12/20 21:18 Critical care time: Bedside Care: 10 minutes, Consultation: 10 minutes, Family gs Intervention: 10 minutes. Total time: 30 minutes 12/21 00:26 Critical care time: Bedside Care: 10 minutes, Consultation: 10 minutes, Family gs Intervention: 10 minutes. Total time: 30 minutes Signatures: Dispatcher [employer] EDLaura Simental RN RN dw Attema, Lee, RN RN laAdina Bhatti RN RN ea Starr, Gregory, MD MD gs Corrections: (The following items were deleted from the chart) 12/20 21:43 21:27 Hospitalization Ordered by Tanner Bang MD for Inpatient Admission. Preliminary dw diagnosis is Acute systolic (congestive) heart failure; Hypoxemia. Bed requested for Telemetry/MedSurg (Inpatient). Status is Inpatient Admission. Condition is Stable. Problem is an acute exacerbation. Symptoms have improved. UTI on Admission? No. gs 23:18 21:43 12/20/2018 21:27 Hospitalization Ordered by Tanner Bang MD for Inpatient gs Admission. Preliminary diagnosis is Acute systolic (congestive) heart failure; Hypoxemia. Bed requested for Telemetry/MedSurg (Inpatient). Status is Inpatient Admission. Condition is Stable. Problem is an acute exacerbation. Symptoms have improved. UTI on Admission? No. dw 12/21 00:43 12/20 23:18 12/20/2018 21:27 Hospitalization Ordered by Tanner Bang MD for Inpatient ea Admission. Preliminary diagnosis is Acute systolic (congestive) heart failure; Hypoxemia; Gastrointestinal hemorrhage, unspecified. Bed requested for Telemetry/MedSurg (Inpatient). Status is Inpatient Admission. Condition is Stable. Problem is an acute exacerbation. Symptoms have improved. UTI on Admission? No. gs
[2018-12-20] MEDS ORDERED: DIGOXIN 0.125 MG TABLET PO SCH (22:00)
[2018-12-20] MEDS ORDERED: ALBUMIN HUMAN 25% 100 ML IV ONE (23:00)
[2018-12-20] MEDS ORDERED: NA CHLORIDE 0.9% 250 ML ONE (23:53)
[2018-12-20] MEDS ORDERED: PANTOPRAZOLE 40 MG INJ ONE (23:53)
[2018-12-21] MEDS ORDERED: FUROSEMIDE 40 MG/4 ML VIAL IV SCH ×2 (01:00→09:00)
[2018-12-21 04:37] LABS: Basophils % 3.5 % (0-1.3); Eosinophils % 3.1 % (0-4.4); Hematocrit 25.2 % (36.0-45.0); Lymphocytes % 18.1 % (15.3-44.8); MPV 8.8 fL (7.6-11.3); Monocytes % 28.3 % (3.3-12.3)
[2018-12-21 04:51] LABS: Albumin 3.5 g/dL (3.4-5.0); Bilirubin Total 1.4 mg/dL (0.2-1.0); Magnesium 2.4 mg/dL (1.8-2.4); Phosphorus 2.7 mg/dL (2.5-4.9); Potassium 3.6 mmol/L (3.5-5.1); Protein, Total 6.3 g/dL (6.4-8.2)
[2018-12-21 05:07] LABS: Urine Appearance CLEAR; Urine Bilirubin NEGATIVE (NEG); Urine Blood NEGATIVE (NEG); Urine Color YELLOW; Urine Glucose NEGATIVE (NEG); Urine Protein NEGATIVE (NEG); Urine Urobilinogen 0.2 mg/dL (0.2-1.0); Urine pH 6.5 (5.0-7.0)
[2018-12-21 05:10] LABS: Urine Microscopic Reflex NO UMIC
[2018-12-21] MEDS ORDERED: PANTOPRAZOLE INJ 80 MG in NA CHLORIDE 0.9% 250 ML IV SCH (07:00)
[2018-12-21] MEDS: LEVOTHYROXINE SOD 0.05 MG TABLET PO SCH (07:30)
[2018-12-21] MEDS ORDERED: ENOXAPARIN 40 MG/0.4 ML SQ SCH (09:00)
[2018-12-21] MEDS ORDERED: GABAPENTIN 400 MG CAP PO SCH (09:00)
[2018-12-21] MEDS: Meropenem 1,000 MG in NA CHLORIDE 0.9% 100 ML IV SCH ×2 (09:00→21:34)
[2018-12-21] MEDS ORDERED: APIXABAN 5 MG TABLET PO SCH (09:00)
[2018-12-21] MEDS ORDERED: ALBUTEROL 2.5 MG/3 ML NEB SOL NEB PRN (09:00)
[2018-12-21] MEDS ORDERED: Meropenem 1000 MG/VIAL IV SCH (09:00)
[2018-12-21] MEDS: HYDROXYUREA 500 MG CAP PO SCH ×3 (09:16→15:08)
[2018-12-21] MEDS: DIGOXIN 0.125 MG TABLET PO SCH (09:17)
[2018-12-21] MEDS: METOPROLOL XL 25 MG TAB PO SCH ×2 (09:17→21:34)
[2018-12-21] MEDS: FUROSEMIDE 20 MG/ 2ML VIAL IV SCH ×2 (09:18→17:49)
[2018-12-21] MEDS ORDERED: POTASSIUM 25 MEQ EFFERV TAB PO ONE (10:00)
--- NOTE | 2018-12-21 10:04 | P.HP ---
Certification for Inpatient Patient admitted to: Inpatient With expected LOS: >2 Midnights Patient will require the following post-hospital care: None Practitioner: I am a practitioner with admitting privileges, knowledge of patient current condition, hospital course, and medical plan of care. Services: Services provided to patient in accordance with Admission requirements found in Title 42 Section 412.3 of the Code of Federal Regulations Patient History Date of Service: 12/20/18 Reason for admission: CHF exacerbation/acute blood loss anemia History of Present Illness: Patient is a 88-year-old female came to the hospital with shortness of breath. Patient was in the ER couple of days ago and had 2 units of packed red blood cells. After the blood transfusion, patient was discharged home. I am not sure if patient was given any diuretics; however, patient started having shortness of breath at home. Patient not able to take a deep breath. She was brought into the emergency room for further evaluation. In the ER, patient's found have a hemoglobin of 7.4. This is a from prior hemoglobin of 6.3. She was given 2 units of packed red blood cells and the anticipation was that the patient's hemoglobin would be greater than 8. However, the hemoglobin is low again. Patient's shortness of breath is from CHF exacerbation. Will diurese the and see how patient does clinically. Patient will need inpatient admission with her numerous comorbidities. She also is has some questionable melanotic stools from family member. Will monitor her hemoglobin and do anemia workup as well. Patient will need inpatient admission for her numerous comorbidities and with her CHF exacerbation. Allergies codeine [Codeine] Adverse Reaction (Verified 10/05/18 03:24) vomiting Home Medications: Allopurinol 1 tab PO DAILY 11/30/18 Digoxin [Lanoxin*] 1 tab PO SEECOM 11/30/18 Furosemide 2 tab PO DAILY 11/30/18 Gabapentin 800 mg PO QID 11/30/18 Levothyroxine Sodium 1 tab PO DAILY 11/30/18 Lidocaine HCl [Aspercreme] 1 jazzy TOP QID 11/30/18 Metoprolol Succinate 1 tab PO BID 11/30/18 traMADol HCL [Ultram*] 1 - 2 tab PO BID 11/30/18 Furosemide [Lasix] 20 mg PO DAILY AT SUPPER 12/21/18 Meropenem [Merrem*] 1 gm IV BID 12/21/18 - Past Medical/Surgical History Has patient received pneumonia vaccine in the past: Yes Diabetic: No -: Chronic CHF, diastolic -: Gerd -: Atrial fibrillation, chronic anti coagulation therapy -: Varicose Veins -: Peripheral Neuropathy -: CML (chronic myeloid leukemia) -: Chronic renal disease -: Hypothyroidism -: Angiodysplasia of intestine with hemorrhage -: Hypertension -: Chronic renal disease -: Angiodysplasia of intestine with hemorrhage -: Hysterectomy -: Back surgery x2 -: Debbie -: bladder sx. -: carotid sx Psychosocial/ Personal History: Patient lives at home. - Family History Mother Medical History: Cancer, Liver disease Father Medical History: Cancer, Liver disease Notes: THROAT CANCER - Social History Smoking Status: Never smoker Alcohol use: No CD- Drugs: No Caffeine use: No Place of Residence: Home Review of Systems 10-point ROS is otherwise unremarkable Physical Examination - Vital Signs Temperature: 97.2 F Blood Pressure: 174/70 Pulse: 62 Respirations: 16 Pulse Ox (%): 94 - Physical Exam General: Alert, In no apparent distress, Oriented x3 HEENT: Atraumatic, PERRLA, Mucous membr. moist/pink, EOMI, Sclerae nonicteric Neck: Supple, 2+ carotid pulse no bruit, No LAD, Without JVD or thyroid abnormality Respiratory: Clear to auscultation bilaterally, Normal air movement Cardiovascular: Regular rate/rhythm, Normal S1 S2, No murmurs Gastrointestinal: Normal bowel sounds, Soft and benign, Non-distended, No tenderness Musculoskeletal: No clubbing, No tenderness Integumentary: No rashes Neurological: Normal gait, Normal speech, Normal strength at 5/5 x4 extr, Normal tone, Sensation intact, Cranial nerves 3-12 intact, Normal affect Lymphatics: No axilla or inguinal lymphadenopathy - Studies Laboratory Data (last 24 hrs) 12/20/18 19:50: PT 13.1 H, INR 1.11 12/20/18 19:50: WBC 8.4 D, Hgb 7.4 L*, Hct 23.3 L, Plt Count 1245 H* 12/20/18 19:50: Sodium 139, Potassium 4.5, BUN 47 H, Creatinine 0.95, Glucose 105, Magnesium 2.7 H Assessment & Plan - Problems (Diagnosis) (1) Acute blood loss anemia Current Visit: Yes Status: Acute (2) Diastolic CHF, acute on chronic Current Visit: Yes Status: Acute (3) Essential (primary) hypertension Onset Date: 09/04/18 Current Visit: No Status: Acute (4) Lymphedema Current Visit: No Status: Acute (5) Urinary tract infection Current Visit: No Status: Acute Qualifiers: (6) Hypothyroidism Onset Date: 09/04/18 Current Visit: No Status: Chronic Qualifiers: (7) Myelogenous leukemia, chronic Onset Date: 11/01/15 Current Visit: No Status: Chronic (8) Peripheral neuropathy Current Visit: No Status: Chronic Qualifiers: - Plan 1. Echocardiogram 2. Aggressively diurese patient with Lasix and monitor strict Is&Os 3. We will start patient on a Beta lyndsey in the morning 4. Cardiology consultation 5. Monitor hemoglobin closely; checked for nutritional deficiencies 6. Strict I's and O's 7. Repeat CXR 8. Daily weights 9. Education regarding diet and treatment of congestive heart failure Discharge Plan: Home Plan to discharge in: 48 Hours - Advance Directives Does patient have a Living Will: No Does patient have a Durable POA for Healthcare: Yes - Code Status/Comfort Care Code Status Assessed: Yes Code Status: Do Not Resuscitate Critical Care: No Time Spent Managing PTS Care (In Minutes): 50
--- NOTE | 2018-12-21 10:06 | P.HP ---
Patient History Allergies codeine [Codeine] Adverse Reaction (Verified 10/05/18 03:24) vomiting Home Medications: Allopurinol 1 tab PO DAILY 11/30/18 Digoxin [Lanoxin*] 1 tab PO SEECOM 11/30/18 Furosemide 2 tab PO DAILY 11/30/18 Gabapentin 800 mg PO QID 11/30/18 Levothyroxine Sodium 1 tab PO DAILY 11/30/18 Lidocaine HCl [Aspercreme] 1 jazzy TOP QID 11/30/18 Metoprolol Succinate 1 tab PO BID 11/30/18 traMADol HCL [Ultram*] 1 - 2 tab PO BID 11/30/18 Furosemide [Lasix] 20 mg PO DAILY AT SUPPER 12/21/18 Meropenem [Merrem*] 1 gm IV BID 12/21/18 - Past Medical/Surgical History Has patient received pneumonia vaccine in the past: Yes Diabetic: No -: Chronic CHF, diastolic -: Gerd -: Atrial fibrillation, chronic anti coagulation therapy -: Varicose Veins -: Peripheral Neuropathy -: CML (chronic myeloid leukemia) -: Chronic renal disease -: Hypothyroidism -: Angiodysplasia of intestine with hemorrhage -: Hypertension -: Chronic renal disease -: Angiodysplasia of intestine with hemorrhage -: Hysterectomy -: Back surgery x2 -: Debbie -: bladder sx. -: carotid sx Psychosocial/ Personal History: Patient lives at home. - Family History Mother Medical History: Cancer, Liver disease Father Medical History: Cancer, Liver disease Notes: THROAT CANCER - Social History Smoking Status: Never smoker Alcohol use: No CD- Drugs: No Caffeine use: No Place of Residence: Home Physical Examination - Vital Signs Temperature: 97.2 F Blood Pressure: 174/70 Pulse: 62 Respirations: 16 Pulse Ox (%): 94 - Studies Laboratory Data (last 24 hrs) 12/20/18 19:50: PT 13.1 H, INR 1.11 12/20/18 19:50: WBC 8.4 D, Hgb 7.4 L*, Hct 23.3 L, Plt Count 1245 H* 12/20/18 19:50: Sodium 139, Potassium 4.5, BUN 47 H, Creatinine 0.95, Glucose 105, Magnesium 2.7 H Assessment & Plan - Advance Directives Does patient have a Living Will: No Does patient have a Durable POA for Healthcare: Yes
[2018-12-21] MEDS: ALLOPURINOL 300 MG TAB PO SCH (11:01)
[2018-12-21] MEDS ORDERED: ALPRAZOLAM 0.25 MG TABLET PO PRN (11:48)
--- NOTE | 2018-12-21 11:58 | P.PN ---
Subjective Date of Service: 12/21/18 Primary Care Provider: Dr. Richmond; Hem/Onc-Dr. Jolley Chief Complaint: CHF exacerbation/acute blood loss anemia Subjective: Other (Patient with good urinary output. Some anxiety noted. Family at bedside. Shortness of breath has improved.) Physical Examination - Vital Signs Temperature: 97.2 F Blood Pressure: 174/70 Pulse: 62 Respirations: 16 Pulse Ox (%): 94 - Physical Exam General: Alert, Oriented x3, Cooperative, Other (Mild anxiety) HEENT: Atraumatic Neck: Supple Respiratory: Diminished (Bilateral) Cardiovascular: Normal pulses, Regular rate/rhythm Gastrointestinal: Normal bowel sounds, Soft and benign, Non-distended, No masses , No rebound, No guarding Musculoskeletal: No tenderness, No warmth Integumentary: No tenderness/swelling, No erythema, No warmth, No cyanosis Neurological: Normal speech, Normal strength at 5/5 x4 extr, Normal tone, Normal affect - Studies Laboratory Data (last 24 hrs) 12/20/18 19:50: PT 13.1 H, INR 1.11 12/20/18 19:50: WBC 8.4 D, Hgb 7.4 L*, Hct 23.3 L, Plt Count 1245 H* 12/20/18 19:50: Sodium 139, Potassium 4.5, BUN 47 H, Creatinine 0.95, Glucose 105, Magnesium 2.7 H Medications List Reviewed: Yes Assessment & Plan Discharge Plan: Home (with Hospice) Plan to discharge in: 24 Hours - Code Status/Comfort Care Code Status Assessed: Yes (Patient DNR) Physician Review Additional Text: Impression: Shortness of breast secondary to acute on chronic diastolic CHF 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 Currently on nasal cannula. Good urinary output noted. Continue IV Lasix and diuresis. Continue to monitor closely. Case discussed at length with patient. Advanced directives address in detail. Patient wishes to be DNR. Patient understands her current and chronic conditions. Patient is tired being in the hospital. Patient has been hospitalized multiple times for anemia related to her CML. Hospice has been addressed in the past. This was readdressed at this time. Patient wishes to be on hospice at this time. This was discussed in detail with family present. Family understands and agrees with plan of care. Will consult hospice to be arranged. Anticipate discharge tomorrow once hospice has arranged for equipment and arrangements of care. 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 This likely lead to her acute on chronic CHF, diastolic exacerbation. Patient understands her chronic condition. This is not improved. Continue with plan of care for hospice at home. No melena noted at this time. Will change Protonix to oral. GI was to be consulted. But since patient wishes to be on hospice will cancel GI consultation. Patient does not desire any GI evaluation for workup. Hypertension: Continue current medication. Recent UTI on IV antibiotic therapy with PICC line: Patient to finish IV meropenem today. Will discontinue PICC line prior to discharge tomorrow. Hypothyroidism: Continue medication. Chronic pain with peripheral neuropathy: Continue home medication. Will provide medication for pain. Anxiety: Will provide medication for anxiety. GERD: Continue with Protonix. Will adjust from IV to oral Time Spent Managing Pts Care (In Minutes): 55
[2018-12-21] MEDS: GABAPENTIN 400 MG CAP PO SCH ×3 (12:21→21:35)
[2018-12-21] MEDS: TRAMADOL HCL 50 MG TAB PO PRN (21:38)
[2018-12-22] MEDS: FUROSEMIDE 20 MG/ 2ML VIAL IV SCH ×3 (00:11→17:12)
[2018-12-22] MEDS: LEVOTHYROXINE SOD 0.05 MG TABLET PO SCH (05:15)
[2018-12-22 05:53] LABS: Magnesium 2.5 mg/dL (1.8-2.4); Potassium 4.3 mmol/L (3.5-5.1)
[2018-12-22 06:00] LABS: Absolute Lymphocytes (CBC) 1.5 K/uL (0.7-4.9); Absolute Monocytes 1.7 K/uL (0.1-1.3); Absolute Neutrophil 3.2 K/uL (1.8-8.0); Basophils % 7.4 % (0-1.3); Hematocrit 26.5 % (36.0-45.0); Lymphocytes % 19.6 % (15.3-44.8); MPV 8.9 fL (7.6-11.3); Monocytes % 23.3 % (3.3-12.3); RBC Red Blood Cell Count 2.82 M/uL (3.86-4.86)
[2018-12-22 06:49] LABS: Anisocytosis 3+; Blood Morphology Comment NOTED (NOT SEEN); Macrocytosis 1+; Platelet Estimate INCR; Urine White Blood Cell Casts DIFF
[2018-12-22 06:50] LABS: Hypochromasia 1+; Poikilocytosis 2+; Polychromasia 2+
[2018-12-22 06:52] VITALS: BMI 19.0
[2018-12-22 06:56] LABS: Basophilic Stippling 1+
[2018-12-22] MEDS ORDERED: PANTOPRAZOLE 40MG TABLET PO SCH (07:30)
--- NOTE | 2018-12-22 08:01 | EKG ---
Test Date: 2018-12-20 Test Time: 18:53:10 Field Marketing Director: LAILA MEASUREMENT RESULTS: Intervals: Rate: 64 NV: 190 QRSD: 118 QT: 440 QTc: 453 [place]: P: -4 NV: 190 QRS: -12 T: 61 INTERPRETIVE STATEMENTS: AV dual-paced rhythm Abnormal ECG Compared to ECG 12/18/2018 11:21:08 Atrial-paced complex(es) or rhythm no longer present Myocardial infarct finding no longer present Electronically Signed On 12-22-18 07:57:28 CDT by Freddie Santiago
--- NOTE | 2018-12-22 09:17 | RAD REPORT ---
EXAM DESCRIPTION: RAD - Chest Pa And Lat (2 Views) - 12/22/2018 9:07 am CLINICAL HISTORY: CHF COMPARISON: December 20 TECHNIQUE: PA and lateral views of the chest were obtained. FINDINGS: The lungs are fibrotic as a baseline. Diffusely prominent interstitial pattern is similar to fractionally improved. Bilateral pleural effusions are still evident. Heart size is slightly impr annabelle. Vasculature is similar to comparison. Defibrillator in place. PICC line in place. No new tube o r line. No pneumothorax. No acute bony finding noted. No aortic abnormality. IMPRESSION: Interstitial fibrosis and interstitial edema pattern similar to comparison. Bilateral pleural effusions with lung base atelectasis unchanged from comparison. Heart size has decreased slightly from comparison.
--- NOTE | 2018-12-22 09:36 | P.DS ---
Admission Date: 12/20/18 Discharge Date: 12/22/18 Primary Care Provider: Dr. Richmond; Hem/Onc-Dr. Jolley Disposition: HOSPICE-HOME Discharge Condition: GOOD Reason for Admission: CHF exacerbation/acute blood loss anemia Consultations: none Procedures: Follow up CXR: COMPARISON: December 20 TECHNIQUE: PA and lateral views of the chest were obtained. FINDINGS: The lungs are fibrotic as a baseline. Diffusely prominent interstitial pattern is similar to fractionally improved. Bilateral pleural effusions are still evident. Heart size is slightly improved. Vasculature is similar to comparison. Defibrillator in place. PICC line in place. No new tube or line. No pneumothorax. No acute bony finding noted. No aortic abnormality. IMPRESSION: Interstitial fibrosis and interstitial edema pattern similar to comparison. Bilateral pleural effusions with lung base atelectasis unchanged from comparison. Heart size has decreased slightly from comparison. Medical Problem List: Shortness of breast secondary to acute on chronic diastolic CHF Anemia of chronic disease with CML with melena Hypertension Recent UTI on IV antibiotic therapy with PICC line Hypothyroidism Chronic pain with peripheral neuropathy Anxiety GERD Brief History of Present Illness: 88-year-old female presented to the emergency room with shortness of breath. Patient with underlying chronic diastolic CHF, CML and chronic anemia. Patient was seen in the emergency room on Friday. Patient was given 2 units of blood and discharge. Since that time patient had reported increasing shortness of breath. Patient re-evaluated in the emergency room. Patient found to have acute on chronic diastolic CHF exacerbation. Patient was admitted for treatment. Hospital Course: Patient presented with shortness of breath secondary to acute on chronic diastolic CHF exacerbation. Patient recently evaluated in the emergency room for acute on chronic anemia related to her CML. Patient was given 2 units of blood at that time and discharged home. Patient was admitted due to increasing shortness of breath and acute CHF exacerbation. During the course of her stay patient was given IV diuretic therapy-Lasix. Patient placed on a fluid restriction. Recheck chest x-ray showed improvement. Patient improved in her stay. Review of chronic conditions addressed with patient and family. Advanced directives and plan of care address in detail with patient. Patient wishes to be DNR. Patient understands her chronic conditions. Patient desired hospice. This had been addressed in the past. Case rediscussed in detail with patient and family present. Patient wishes to go home on hospice. Patient understands her chronic conditions and desires no future treatment of CML or transfusion of blood. Hospice will be arranged at discharge. Patient will continue with oxygen to maintain sats above 90%. At discharge will increase Lasix to 40 mg 1 pill twice daily. Patient to continue with a 1500 cc per day fluid restriction. Case discussed with her oncologist who agrees with plan of care. Further adjustment in medication can be done by hospice. Patient with anemia of chronic disease related to CML. Patient recently given transfusion of 2 units. Hemoglobin stable at this time. No need for transfusion at this time. There was some report of melena. This resolved. GI evaluation was considered but since the patient did not desire any further evaluation and desired hospice, there was no need for GI. Hemoglobin 8.8 at discharge. Patient to go home with hospice. Patient desires no further treatment of her CML or transfusion in the future. This can be further addressed by hospice. Case discussed in detail with her oncologist who agrees with plan of care. Patient with hypertension. Blood pressure remained stable in her stay. At discharge patient may continue with metoprolol XL 25 mg 1 pill twice daily. Further adjustment in medication can be done by hospice. Patient with hypothyroidism. At discharge patient will continue with Levoxyl 50 mcg daily. Patient with chronic pain and peripheral neuropathy. Patient may continue with gabapentin 800 mg 4 times a day and tramadol as needed for pain. Further adjustment in medication for pain can be addressed by hospice. Patient with anxiety. Patient required medication in her stay. At discharge patient will continue with his Xanax 0.25 mg 1 pill twice daily as needed for anxiety. Further adjustment can be done by hospice. Patient with recent UTI requiring IV antibiotic therapy. Patient has finished course of IV antibiotic therapy. PICC line to be removed prior to discharge. UTI prevention to continue at home. Vital Signs/Physical Exam: Temp Pulse Resp BP Pulse Ox 97.2 F 65 17 148/91 H 96 12/22/18 07:00 12/22/18 07:00 12/22/18 07:00 12/22/18 07:00 12/22/18 07:00 General: Alert, In no apparent distress, Oriented x3, Cooperative HEENT: Atraumatic Neck: Supple Respiratory: Crackles/rales (Minimal crackles to the bases patient appropriate without significant shortness of breath) Cardiovascular: Normal pulses, Regular rate/rhythm Gastrointestinal: Normal bowel sounds, Soft and benign, Non-distended, No tenderness, No masses, No rebound, No guarding Musculoskeletal: No erythema, No tenderness, No warmth Integumentary: No tenderness/swelling, No erythema, No warmth, No cyanosis Neurological: Normal speech, Normal strength at 5/5 x4 extr, Normal tone, Normal affect Laboratory Data at Discharge: WBC 7.5 K/uL (4.3-10.9) D 12/22/18 05:05 Hgb 8.8 g/dL (12.0-15.0) L 12/22/18 05:05 Hct 26.5 % (36.0-45.0) L 12/22/18 05:05 Plt Count 1177 K/uL (152-406) H* 12/22/18 05:05 PT 13.1 SECONDS (9.5-12.5) H 12/20/18 19:50 INR 1.11 12/20/18 19:50 Sodium 138 mmol/L (136-145) 12/22/18 05:05 Potassium 4.3 mmol/L (3.5-5.1) 12/22/18 05:05 BUN 34 mg/dL (7-18) H 12/22/18 05:05 Creatinine 0.92 mg/dL (0.55-1.3) 12/22/18 05:05 Glucose 95 mg/dL (74-106) 12/22/18 05:05 Phosphorus 2.7 mg/dL (2.5-4.9) 12/21/18 03:40 Magnesium 2.5 mg/dL (1.8-2.4) H 12/22/18 05:05 Total Bilirubin 1.4 mg/dL (0.2-1.0) H 12/21/18 03:40 AST 31 U/L (15-37) 12/21/18 03:40 ALT 17 U/L (12-78) 12/21/18 03:40 Alkaline Phosphatase 96 U/L (45-117) 12/21/18 03:40 Home Medications: RX: Allopurinol 1 tab PO DAILY 11/30/18 RX: Digoxin [Lanoxin*] 1 tab PO SEECOM 11/30/18 RX: Gabapentin 800 mg PO QID 11/30/18 RX: Levothyroxine Sodium 1 tab PO DAILY 11/30/18 RX: Lidocaine HCl [Aspercreme] 1 jazzy TOP QID 11/30/18 RX: Metoprolol Succinate 1 tab PO BID 11/30/18 RX: traMADol HCL [Ultram*] 1 - 2 tab PO BID 11/30/18 ALPRAZolam [Xanax] 0.25 mg PO BID PRN #10 tab 12/22/18 Furosemide [Lasix] 40 mg PO BIDL #60 tab 12/22/18 New Medications: ALPRAZolam [Xanax] 0.25 mg PO BID PRN #10 tab PRN Reason: Anxiety Furosemide [Lasix] 40 mg PO BIDL #60 tab Patient Discharge Instructions: 1. Patient will go home with hospice. 2. Patient presented with shortness of breath secondary to acute on chronic diastolic CHF exacerbation. Patient recently evaluated in the emergency room for acute on chronic anemia related to her CML. Patient was given 2 units of blood at that time and discharged home. Patient was admitted due to increasing shortness of breath and acute CHF exacerbation. During the course of her stay patient was given IV diuretic therapy-Lasix. Patient placed on a fluid restriction. Recheck chest x-ray showed improvement. Patient improved in her stay. Review of chronic conditions addressed with patient and family. Advanced directives and plan of care address in detail with patient. Patient wishes to be DNR. Patient understands her chronic conditions. Patient desired hospice. This had been addressed in the past. Case rediscussed in detail with patient and family present. Patient wishes to go home on hospice. Patient understands her chronic conditions and desires no future treatment of CML or transfusion of blood. Hospice will be arranged at discharge. Patient will continue with oxygen to maintain sats above 90%. At discharge will increase Lasix to 40 mg 1 pill twice daily. Patient to continue with a 1500 cc per day fluid restriction. Case discussed with her oncologist who agrees with plan of care. Further adjustment in medication can be done by hospice. 3. Patient with anemia of chronic disease related to CML. Patient recently given transfusion of 2 units. Hemoglobin stable at this time. No need for transfusion at this time. There was some report of melena. This resolved. GI evaluation was considered but since the patient did not desire any further evaluation and desired hospice, there was no need for GI. Hemoglobin 8.8 at discharge. Patient to go home with hospice. Patient desires no further treatment of her CML or transfusion in the future. This can be further addressed by hospice. Case discussed in detail with her oncologist who agrees with plan of care. 4. Patient with hypertension. Blood pressure remained stable in her stay. At discharge patient may continue with metoprolol XL 25 mg 1 pill twice daily. Further adjustment in medication can be done by hospice. 5. Patient with hypothyroidism. At discharge patient will continue with Levoxyl 50 mcg daily. 6. Patient with chronic pain and peripheral neuropathy. Patient may continue with gabapentin 800 mg 4 times a day and tramadol as needed for pain. Further adjustment in medication for pain can be addressed by hospice. 7. Patient with anxiety. Patient required medication in her stay. At discharge patient will continue with his Xanax 0.25 mg 1 pill twice daily as needed for anxiety. Further adjustment can be done by hospice. 8. Patient with recent UTI requiring IV antibiotic therapy. Patient has finished course of IV antibiotic therapy. PICC line to be removed prior to discharge. UTI prevention to continue at home. Diet: AHA Activity: Fall precautions Time spent managing pt's care (in minutes): 55
[2018-12-22] MEDS: ALLOPURINOL 300 MG TAB PO SCH (09:47)
[2018-12-22] MEDS: GABAPENTIN 400 MG CAP PO SCH ×3 (09:47→17:11)
[2018-12-22] MEDS: METOPROLOL XL 25 MG TAB PO SCH (09:47)
[2018-12-22] MEDS: DIGOXIN 0.125 MG TABLET PO SCH (09:48)
[2018-12-22] MEDS: TRAMADOL HCL 50 MG TAB PO PRN (13:27)
--- NOTE | 2018-12-22 13:27 | ECHO ---
HEIGHT: 5 ft 5 in WEIGHT: 114 lb 4.8 oz DATE OF STUDY: 12/22/[address]: Tanner Pearl MD 2-DIMENSIONAL: YES M.MODE: YES DOPPLER: YES COLOR FLOW: YES TDS: NO PORTABLE: NO DEFINITY: NO BUBBLE STUDY: NO DIAGNOSIS: CONGESTIVE HEART FAILURE CARDIAC HISTORY: CATHERIZATION: YES SURGERY: NO PROSTHETIC VALVE: NO PACEMAKER: YES MEASUREMENTS (cm) DIASTOLIC (NORMALS) SYSTOLIC (NORMALS) IVSd 1.3 (0.6-1.2) LA Diam 4.6 (1.9-4.0) LVEF 66% LVIDd 3.7 (3.5-5.7) LVIDs 2.4 (2.0-3.5) %FS 36% LVPWd 1.3 (0.6-1.2) Ao Diam 2.9 (2.0-3.7) 2 DIMENSIONAL ASSESSMENT: RIGHT ATRIUM: NORMAL LEFT ATRIUM: DILATED RIGHT VENTRICLE: NORMAL LEFT VENTRICLE: LEFT VENTRICULAR HYPERTROPHY TRICUSPID VALVE: NORMAL MITRAL VALVE: MITRAL ANNULAR CALCIFICATION PULMONIC VALVE: NORMAL AORTIC VALVE: STENOTIC PERICARDIAL EFFUSION: NONE AORTIC ROOT: NORMAL LEFT VENTRICULAR WALL MOTION: NORMAL LEFT VENTRICULAR EJECTION FRACTION. DECREASED LEFT VENTRICULAR COMPLIANCE. DOPPLER/COLOR FLOW: MILD AORTIC STENOSIS. COMMENTS: MILD AORTIC STENOSIS 1.5 CENTIMETERS SQUARED. NORMAL LEFT VENTRICULAR EJECTION FRACTION. LEFT VENTRICULAR HYPERTROPHY. MITRAL ANNULAR CALCIFICATION. LEFT ATRIAL ENLARGEMENT. DECREASED LEFT VENTRICULAR COMPLIANCE. TECHNOLOGIST: Jelani MUHAMMAD
[2018-12-22 16:16] VITALS: O2SAT 95
[2018-12-22 16:29] VITALS: BP 130/56; TEMP 97.5
== END 2018-12-22 18:55 | disposition hospice, home (50) ==
LOC: ER 18:33 → ERHOLD 21:25 → INTOOBSV 21:25 → 4TH 22:38
PROVIDERS: ADMIT Hospitalist; ATTEND Family Medicine
DX: I11.0 Hypertensive heart disease with heart failure (principal); I50.33 Acute on chronic diastolic (congestive) heart failure; D62 Acute posthemorrhagic anemia; C92.10 Chronic myeloid leukemia, BCR/ABL-positive, not having achieved remission; D63.8 Anemia in other chronic diseases classified elsewhere; E03.9 Hypothyroidism, unspecified; I89.0 Lymphedema, not elsewhere classified; I48.2 Chronic atrial fibrillation; I35.0 Nonrheumatic aortic (valve) stenosis; J90 Pleural effusion, not elsewhere classified; K92.1 Melena; K21.9 Gastro-esophageal reflux disease without esophagitis; N39.0 Urinary tract infection, site not specified; G62.9 Polyneuropathy, unspecified; G89.29 Other chronic pain; F41.9 Anxiety disorder, unspecified; R94.31 Abnormal electrocardiogram [ECG] [EKG]; Z79.01 Long term (current) use of anticoagulants; Z79.899 Other long term (current) drug therapy; Z66 Do not resuscitate; Z95.0 Presence of cardiac pacemaker
CPT/HCPCS: 93005; 93306; 85025 ×3; 80048 ×2; 36415 ×2; 86900; 83735 ×3; 86850; 84100; 85610; 86901; 81003; 84484; 80053; 83880 ×2; 71045; 71046; 94640; 99285; J1940 ×7; C9113 ×2; P9047; G0378 ×2